=== PATIENT | male | born 1970 | race Caucasian/White ===

== ENCOUNTER 2019-12-17 13:48 | Inpatient (IN) | payer SELFPAY ==
[2019-12-17] VITALS (7 sets, daily range): BP systolic 107–149; BP diastolic 75–105; PULSE 89–107; RESP 16–25; TEMP 36.3–37.1; O2SAT 95–99; BMI 38.0
--- NOTE | 2019-12-17 14:21 | ED_ITS ---
HPI - Abdominal Pain General: Chief Complaint: Abdominal Pain Stated Complaint: ABD PAIN; N/V Time Seen by Provider: 12/17/19 13:54 History of Present Illness: HPI narrative: 49-year-old male presents with abdominal pain which began yesterday with nausea and vomiting he is having bilious vomit some multiple episodes of loose watery stools. He denies any recent oral antibiotics. He denies any hematic hematochezia melena hematemesis or coffee-ground emesis. He refers most of abdominal pain to the epigastric area a little bit to the left of center radiating across the entire epigastric area he denies any dysuria urgency or frequency no recent cough or shortness of breath. He has had multiple episodes of diarrhea stools but is unable to give me a number per day. He has had mitral and aortic valvuloplasty is done but in talking to him it sounds as if these were bioprosthetic he is not been prescribed any oral anticoagulants either immediately after the surgery or since. MD elicited complaint: abdominal pain Pertinent past history: none Onset (ago): day(s) (2) Pain Consistency: constant Location: Epigastric Severity: severe Quality: cramping and stabbing Radiation: LLQ Migration to: no migration Exacerbating factors: eating, bowel movement, vomiting and other (Sitting up) Relieving factors: rest Associated Symptoms: Reports anorexia, bloating, GI cramping, diarrhea, dyspepsia, nausea, poor appetite and vomiting; Denies coffee ground emesis, constipation, dysuria, fever(s), heartburn, hematochezia and melena Review of Systems Const: Denies: fever(s) ENMT: Denies: throat pain, ear or mastoid pain, nasal discharge or nasal congestion Card: Denies: chest pain, edema, dyspnea on exertion or orthopnea Resp: Denies: dyspnea, productive cough or non-productive cough GI: Reports: nausea, vomiting, diarrhea, bloating and GI cramping; Denies: coffee ground emesis, heartburn, constipation, hematochezia or melena : Denies: dysuria Skin/Breast: Denies: rash or pruritus PFSH ED PFSH: Medical History Bowel obstruction CAD (coronary artery disease) Diabetes Hepatitis C Hypertension Surgical History History of aortic valve replacement with bioprosthetic valve History of heart valve replacement History of mitral valve replacement with bioprosthetic valve Social History Substance/Drug Use: current Substance/Drug use frequency: few times a month Substance/Drug use type: Methamphetamine Housing: Homeless Physical Exam Const: COMMON NORMALS: no acute distress GENERAL APPEARANCE: cooperative and comfortable ORIENTATION/CONSCIOUSNESS: Yes awake, Yes oriented to person, Yes oriented to place and Yes oriented to time HENMT: COMMON NORMALS: normocephalic, atraumatic, hearing grossly normal bilaterally, external ears normal, EAC's normal, TM's normal bilaterally, Normal nasal mucous membranes and turbinates present, moist oral mucous membranes and oropharynx normal HEAD & SCALP: normocephalic and atraumatic NOSE: Normal nasal mucous membranes and turbinates present EXTERNAL EAR: Yes external ears normal EXTERNAL AUDITORY CANAL: EAC's normal TYMPANIC MEMBRANE: TM's normal bilaterally Eye: COMMON NORMALS: Equal, round and reactive pupils present, EOMs intact bilaterally, conjunctivae normal and no scleral icterus CONJUNCTIVA: Yes conjunctivae normal PUPIL: Yes Equal, round and reactive pupils present Neck/C-Spine: COMMON NORMALS: full ROM, no lymphadenopathy, supple and no JVD Lymph: LYMPHATIC: no lymphadenopathy noted and no lymphedema noted Resp: COMMON NORMALS: normal respiratory effort, No retractions, No use of accessory muscles and clear to auscultation bilaterally AUSCULTATION: clear to auscultation bilaterally Cardio: COMMON NORMALS: no JVD, regular rate, regular rhythm and No murmurs present (Cardio) RATE: regular rate RHYTHM: regular rhythm GI: COMMON NORMALS: Soft to palpation and No hepatosplenomegaly present AUSCULTATION: Yes Hypoactive bowel sounds present PALPATION: Yes Soft to palpation, Yes Tenderness to palpation present (GI) (Diffusely across the abdomen), No Guarding due to palpation present (GI) and Yes No hepatosplenomegaly present Extremity: COMMON NORMALS: normal to inspection, capillary refill normal, no clubbing, cyanosis or edema, no calf tenderness and no pedal edema Neuro: SENSORIUM/ORIENTATION: Yes oriented to person, Yes oriented to place and Yes oriented to time Skin: COMMON NORMALS: no rashes or lesions noted GENERAL SKIN EXAM: no rashes or lesions noted Course Vital Signs: Vital signs: Vital Signs Temperature 97.7 F 12/20/19 07:21 Pulse Rate 67 12/20/19 07:21 Respiratory Rate 18 12/20/19 07:21 Blood Pressure 106/70 12/20/19 07:21 Pulse Oximetry 96 12/20/19 07:21 MDM - Abdominal Pain MDM Narrative: Medical decision making narrative: Solitary loop of bowel with obstruction at both the proximal and distal portions.. Reviewed with Dr. Ortega. He will admit consult hospitalist as well. Discussed with the patient. Lab Data: Labs: Lab Results 12/17/19 12/17/19 12/17/19 Range/Units 14:56 14:56 14:56 WBC 11.3 H (4.0-10.0) 10^3/ uL RBC 5.26 (4.1-5.3) 10^6/u L Hgb 15.7 (11.7-16.6) g/dL Hct 46.6 (42.0-52.0) % MCV 88.6 (80-94) fL MCH 29.8 (28.0-34.0) pg MCHC 33.7 (30.0-36.0) g/dL RDW 12.5 (12.1-15.1) % Plt Count 204 (130-400) 10^3/c mm MPV 10.3 (7.4-10.4) fL Neut % (Auto) 82.7 % Lymph % (Auto) 11.5 % [place] % (Auto) 5.0 % Eos % (Auto) 0.1 % Baso % (Auto) 0.2 % Neut # (Auto) 9.34 H (1.8-7.7) 10^3/u L Lymph # (Auto) 1.3 (0.8-4.8) 10^3/u L [place] # (Auto) 0.6 (0.2-0.9) 10^3/u L Eos # (Auto) 0.0 (0.0-0.8) 10^3/u L Baso # (Auto) 0.0 (0.0-0.1) 10^3/u L Nucleated RBC % (a uto) 0 % Nucleated RBCs # 0.0 /100WBC Sodium 133 L (136-145) mmol/L Potassium 4.4 (3.5-5.1) mmol/L Chloride 100 (98-107) mmol/L Carbon Dioxide 20 L (22-29) mmol/L Anion Gap 17.4 (5-19) BUN 20 (6-20) mg/dL Creatinine 0.8 (0.7-1.2) mg/dL GFR Calculation 103.6 (90-130) mL/min Glucose 297 H (65-115) mg/dL Calculated Osmolal ity 284 L (285-295) mOsm/k g Lactic Acid 3.5 H (0.5-2.2) mmol/L Calcium 9.1 (8.5-10.5) mg/dL Total Bilirubin 0.4 (0.15-1.2) mg/dL AST 12 (0-40) U/L ALT 18 (0-41) U/L Alkaline Phosphata se 84 (40-130) IU/L Total Protein 7.5 (6.6-8.7) g/dL Albumin 4.5 (3.5-5.2) g/dL Globulin 3.0 (1.3-4.6) g/dL Lipase 23 (13-60) U/L Discharge Plan Discharge Patient Disposition: Admitted As Inpatient Admit Provider: Star Ortega Clinical Impression: Small bowel obstruction, H/O heart valve replacement with bioprosthetic valve, Hypertension, Diabetes Condition: Stable Interventions: ED Discharge Assessment Last Done: 12/17/19 17:56 ED Charges Last Done: 12/17/19 17:56 Discharge Date/Time: 12/17/19 18:02 Coding Level of Care Code ED Mobility Specialist for Chg Fwd Exam Comprehensive
--- NOTE | 2019-12-17 14:34 | CTR_ITS ---
PROCEDURE INFORMATION: Exam: CT Abdomen And Pelvis With Contrast Exam date and time: 12/17/2019 2:58 PM Age: 49 years old Clinical indication: Abdominal pain; Localized; Left lower quadrant (llq); Additional info: Abd pain TECHNIQUE: Imaging protocol: Computed tomography of the abdomen and pelvis with intravenous contrast. Radiation optimization: All CT scans at this facility use at least one of these dose optimization techniques: automated exposure control; mA and/or kV adjustment per patient size (includes targeted exams where dose is matched to clinical indication); or iterative reconstruction. Contrast material: OMNI 300; Contrast volume: 95 ml; Contrast route: INTRAVENOUS (IV); COMPARISON: No relevant prior studies available. RADIATION DOSE METRICS: Total DLP (mGy-cm): 2000.64 FINDINGS: Liver: Unremarkable.No mass. Gallbladder and bile ducts: Normal. No calcified stones. No ductal dilation. Pancreas: Normal. No ductal dilation. Spleen: Normal. No splenomegaly. Adrenals: Normal. No mass. Kidneys and ureters: There is no evidence of hydronephrosis. There is no evidence of renal calcifications. Stomach and bowel: There are dilated loops of small bowel and findings of a partial small bowel obstruction with a greatest transverse measurement the dilated loops of small bowel measuring 4.2 cm. The stomach, jejunum and terminal ileum are not dilated. The findings are compatible with a closed loop obstruction. The loops of colon have an appropriate appearance. Appendix: A normal appendix is identified. Intraperitoneal space: There is a swirled appearance of the mesenteric fat and vessels in the right abdomen image 62. There is an abrupt caliber change. Vasculature: Unremarkable.No abdominal aortic aneurysm. Lymph nodes: Unremarkable.No enlarged lymph nodes. Bladder: There is nonspecific bladder wall thickening. This may be related to incomplete distention. Reproductive: Unremarkable as visualized. Bones/joints: Unremarkable. No acute fracture. Soft tissues: There are moderate to large sized bilateral fat filled inguinal hernias. CT/CT abdomen pelvis w con* [id number] IMPRESSION: 1. Partial small bowel obstruction. There are findings of a closed loop obstruction with collapsed proximal small bowel and distal small bowel proximal and distal to the obstruction. No pneumatosis or free air. 2. There is a vacuum disc at L5-S1. There are mild degenerative changes in the spine. Radiation Dose CTDIVOL = (mGy): DLP = 2000.64 (mGy-cm)
[2019-12-17] MEDS: sodium chloride 0.9% 1,000 ML 999 ML IV (14:43)
[2019-12-17] MEDS: ondansetron 2 mg/ML SDV 2 mL 4 MG IVP (14:43)
--- NOTE | 2019-12-17 14:44 | PC.NURSE ---
At patients bedside at this time to administer medications. This RN educated patient that a urine sample is needed. Patient reports that he will try to provide one. This RN stepped out of the room to provide the patient for privacy. Prior to leaving the room this RN educated the patient to us call light when urine sample is provided. Will continue to monitor patient.
[2019-12-17 15:05] LABS: Basophils % 0.2 %; Eosinophils % 0.1 %; Hematocrit 46.6 % (42.0-52.0); Hemoglobin 15.7 g/dL (11.7-16.6); Lymphocytes # 1.3 10^3/uL (0.8-4.8); Lymphocytes % 11.5 %; Mean Corpuscular HGB Conc 33.7 g/dL (30.0-36.0); Mean Corpuscular Hemoglobin 29.8 pg (28.0-34.0); Mean Corpuscular Volume 88.6 fL (80-94); Mean Platelet Volume 10.3 fL (7.4-10.4); Monocytes # 0.6 10^3/uL (0.2-0.9); Neutrophils # 9.34 10^3/uL (1.8-7.7); Neutrophils % 82.7 %; Nucleated Red Blood Cells % 0 %; Platelet Count 204 10^3/cmm (130-400); Red Blood Count 5.26 10^6/uL (4.1-5.3); Red Cell Distribution Width 12.5 % (12.1-15.1); White Blood Count 11.3 10^3/uL (4.0-10.0)
[2019-12-17] MEDS: iohexol 300 mg/mL 100 mL Btl IV (15:18)
[2019-12-17 15:34] LABS: Alanine Aminotransferase 18 U/L (0-41); Albumin Level 4.5 g/dL (3.5-5.2); Alkaline Phosphatase 84 IU/L (40-130); Anion Gap 17.4 (5-19); Aspartate Amino Transferase 12 U/L (0-40); Blood Urea Nitrogen 20 mg/dL (6-20); Calcium 9.1 mg/dL (8.5-10.5); Carbon Dioxide 20 mmol/L (22-29); Chloride 100 mmol/L (98-107); Creatinine Clr Calc Pharmacy 139.4987; Glomerular Filtration Rate 103.6 mL/min (90-130); Glucose 297 mg/dL (65-115); Lipase 23 U/L (13-60); Osmolality Calculated 284 mOsm/kg (285-295); Potassium 4.4 mmol/L (3.5-5.1); Sodium 133 mmol/L (136-145); Total Bilirubin 0.4 mg/dL (0.15-1.2); Total Protein 7.5 g/dL (6.6-8.7)
[2019-12-17 15:36] LABS: Lactic Sepsis W/Reflex 3.5 mmol/L (0.5-2.2)
[2019-12-17] MEDS: LORazepam 2 mg/mL INJ 1 mL IVP (16:16)
[2019-12-17] MEDS: pantoprazole 40 mg SDV IVP (16:17)
[2019-12-17] MEDS: enoxaparin 40 mg/0.4 mL Syringe SUBCUT (16:36)
[2019-12-17 16:50] LABS: Reflex Lactate Order REFLEX LACTIC ORDERD
[2019-12-17 17:13] LABS: Urine Appearance Clear (CLEAR); Urine Color Straw (Yellow); pH Urine 5 (5-7)
[2019-12-17 17:14] LABS: Add Urine Culture? No; Add Urine Microscopic? YES; Bacteria Urine TRACE; Bilirubin Urine Neg (NEGATIVE); Blood Urine 3+ (Negative); Glucose Urine UA 2+ (Normal); Ketones Urine Negative (Negative); Leukocyte Esterase Urine Negative (Negative); Nitrate Urine Negative (Negative); Protein Urine Neg (Negative); Urobilinogen Urine Norm (Negative)
--- NOTE | 2019-12-17 17:23 | PC.NURSE ---
Second attempt to call report. First time calling was put on hold and engineering secretary reports she was unable to find the nurse. Second time calling this RN called the nurses volt phone and no answer.
--- NOTE | 2019-12-17 20:18 | XRR_ITS ---
PROCEDURE INFORMATION: Exam: XR Chest, 1 View Exam date and time: 12/17/2019 9:16 PM Age: 49 years old Clinical indication: NG tube placement TECHNIQUE: Imaging protocol: XR of the chest Views: 1 view. COMPARISON: CR Chest 1 [place] [id number] 10/28/2018 1:47 PM FINDINGS: Tubes, catheters and devices: There is an enteric tube present with the tip in the stomach, and the proximal side hole at/near the gastroesophageal junction. Lungs: Poor inspiration. Decreased lung volumes. Pleural space: No pleural effusion or pneumothorax. Heart/Mediastinum: The cardiac silhouette is enlarged. The mediastinal contours are normal. Bones/joints: Prior median sternotomy. XR/XR chest 1V portable [id number] IMPRESSION: Enteric tube tip in the stomach.
--- NOTE | 2019-12-17 20:24 | P.HP_ITS ---
Providers/Chief Complaint Admitting Physician: Star Ortega MD Chief Complaint: ABD PAIN; N/V History of Present Illness Shree Hickman is a 49 year old male who is homeless and presents to the ER with a 24-hour history of generalized abdominal pain. Patient states that the pain is generalized does not radiate, not worse with food intake or physical activity and is constant. It initially started as nausea with vomiting followed by multiple loose bowel movements and abdominal pain yesterday. Today continue present abdominal pain and he also had a loose bowel movement since he came to the floor half an hour ago. No urinary symptoms. Patient states that he is still episode about a year ago when he was admitted to [facility]. No fevers or chills. No hematemesis or melena. No prior abdominal surgeries. Review of Systems General: Reports: 10 or more systems reviewed and unremarkable except in HPI and below Medications/Allergies Home Medications Medication Instructions Recorded Confirmed Last Taken Type No Known Home Medications 12/17/19 12/17/19 Unknown History Allergies Allergy/AdvReac Type Severity Reaction Status Date / Time No Known Allergies Allergy Verified 12/17/19 13:54 PFSH Acute PFSH: Medical History Bowel obstruction CAD (coronary artery disease) Hepatitis C Hypertension Surgical History History of aortic valve replacement with bioprosthetic valve History of heart valve replacement History of mitral valve replacement with bioprosthetic valve Social History (Updated 12/17/19 @ 20:26 by Star Ortega MD) Substance/Drug Use: current Substance/Drug use frequency: few times a month Substance/Drug use type: Methamphetamine Housing: Homeless Vitals/I&O/Wt Last Vital Signs Temp 97.7 F 12/17/19 20:00 Pulse 89 12/17/19 20:00 Resp 22 H 12/17/19 20:00 BP 114/77 12/17/19 20:00 Pulse Ox 95 12/17/19 20:00 12/17/19 12/17/19 12/17/19 06:59 14:59 22:59 Intake Total 1000 / 1000 Balance 1000 / 1000 Weight last 48 hrs Weight 250 lb Physical Exam Narrative: EXAM NARRATIVE: HEENT: Normocephalic Eye: Sclera /conjunctiva normal Respiratory and chest: Bilateral clear breath sounds on auscultation Cardiovascular: Normal S1 and S2 heart sounds Abdomen: Soft to palpation, minimally tender, no guarding or rigidity. Mildly distended. Neurological: Oriented to place person and time Skin: Intact, no lesions appreciated on gross exam Urinary Catheter Management^: Rowe: Cath Placed During This Visit: yes Reason for Continuing Indwelling Catheter: Other Urinary Catheter Date of Insertion: 12/17/19 Urinary Catheter Time of Insertion: 16:10 Data : 12/17/19 14:56 12/17/19 14:56 A&P Assessment and plan (1) Abdominal pain: 49-year-old homeless gentleman who presents with abdominal pain, nausea vomiting and diarrhea. His WBC is 11.3 and his lactate is 3.5. Rest of his lab did not any significant pathology. Urine was positive for blood and WBC. He had an NG tube and Rowe catheter placed in the ER. CT abdomen pelvis showed possible closed-loop obstruction involving the jejunum. Admit as inpatient Ambulate ad larry. NG tube to low low intermittent suction Rowe to gravity KUB to confirm NG tube position Lactate reflex now Consult hospitalist service for medical management. Abdominal series in the morning CBC BMP in the morning Lovenox for DVT prophylaxis Incentive spirometry Protonix for GI prophylaxis Obtain records from [facility] Status: Acute Attestations Medical Necessity Statement*: Suspected small bowel obstruction/ileus requiring continued inpatient stay Coding Level of Care Code Acute Hydraulic Plumber Helper for Chg Fwd Diagnoses Abdominal pain R10.9
--- NOTE | 2019-12-17 20:25 | PM.CONSULT ---
Providers/Reason For Consult Consulting Physican/Specialty*: Maria Elena Johnson MD/Internal Medicine Reason for Consult*: medical comanagement Attending Physician: Star Ortega MD History of Present Illness History of Present Illness History obtained by chart review and discussion with ERP. 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 He only able to tell that that symptoms started abruptly today. At time of my evaluation at ~5:45 pm, he was noted to be naked in the room, pacing about with his NGT still connected to suction, attempting to pull on his stephen as he wanted to get to the bathroom urgently to have a bowel movement. He had soiled himself with some incontinent stool and there was some on his bed. He was unwilling to state much else and was helped to the bathroom eventually. Denied any bleeding or hematemesis to me. HB at 15.7, mild leukocytosis at 11. Afebrile. Does not report any fever at home. Further history limited. Review of Systems General: Reports: 10 or more systems reviewed and unremarkable except in HPI and below Const: Denies: fever(s), chills or body aches Eyes: Denies: change in vision, blurry vision or photophobia ENMT: Reports: hoarseness; Denies: throat pain, enlarged tonsils, odynophagia or nasal congestion Card: Denies: chest pain, palpitations, irregular heart rhythm, edema, swelling of feet/ankles, lightheadedness, pre-syncope, dyspnea on exertion or orthopnea Resp: Denies: dyspnea, productive cough, non-productive cough, wheezing, stridor, pain on inspiration, change in phlegm color, hemoptysis or chest congestion GI: Denies: abdominal pain, nausea, vomiting, hematemesis, coffee ground emesis, dysphagia, heartburn, diarrhea, constipation, GI cramping, change in stool character, hematochezia or melena : Denies: flank pain, dysuria, urinary frequency, urinary urgency, urinary hesitancy or hematuria Musc: Denies: neck pain, back pain, extremity pain, joint swelling, joint warmth or deformity Neuro: Denies: headache(s), numbness in extremities, weakness in extremities, sensory changes, difficulty walking, frequent falls, dizziness, vertigo, behavioral changes, Slurred speech present or seizure-like activity Psych: Denies: anxiety, depression, suicidal ideation or homicidal ideation Endo: Denies: polyuria, polydipsia, tired all the time, cold intolerance or hot flashes [place]/Lymph: Denies: easy bruising or easy bleeding Meds/Allergies Home Medications and Allergies Home Medications Medication Instructions Recorded Confirmed Last Taken Type No Known Home Medications 12/17/19 12/17/19 Unknown History Allergies Allergy/AdvReac Type Severity Reaction Status Date / Time No Known Allergies Allergy Verified 12/17/19 13:54 PFSH Acute PFSH: Medical History Bowel obstruction CAD (coronary artery disease) Diabetes Hepatitis C Hypertension Surgical History History of aortic valve replacement with bioprosthetic valve History of heart valve replacement History of mitral valve replacement with bioprosthetic valve Social History Substance/Drug Use: current Substance/Drug use frequency: few times a month Substance/Drug use type: Methamphetamine Housing: Homeless Vitals/I&O/Wt Last Vital Signs Temp 97.7 F 12/17/19 20:00 Pulse 89 12/17/19 20:00 Resp 22 H 12/17/19 20:00 BP 114/77 12/17/19 20:00 Pulse Ox 95 12/17/19 20:00 12/17/19 12/17/19 12/17/19 06:59 14:59 22:59 Intake Total 1000 / 1000 Balance 1000 / 1000 Weight last 48 hrs Weight 113.398 kg Physical Exam Narrative: EXAM NARRATIVE: GEN: Awake, alert and oriented, in some distress due to bowel urgency, pacing in the room, attempting to get to the bathroom in hallway CVS: S1S2 N RS: CTA B/L Abd: Soft, mildly distended, bowel sounds could not be auscultated as he refused to sit MANAGER CLINICAL APPLICATIONS: no focal neuro deficits appearent, pacing the room, gait stable EXT: no edema Urinary Catheter Management^: Stephen: Cath Placed During This Visit: yes Reason for Continuing Indwelling Catheter: Other Urinary Catheter Date of Insertion: 12/17/19 Urinary Catheter Time of Insertion: 16:10 A&P Assessment and plan (1) Small bowel obstruction: Status: Acute (2) Diabetes: Status: Acute Qualifiers: Diabetes mellitus type: type 2 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 Small bowel obstrcution NGT placed to suction in the ER Planned for conservative manga[employer] for now NPO 2. DM: Check Hba1c, per review of past records, appears to have been on insulin in the past. Low dose sliding scale for now, further to be assesed based on fingersticks and Hba1c levels 3. HTN: no medications listed on med rec. Since currently NPO, will plan to use hydralazine as needed 4. Currently sinus tachycardia on monitor, some may be associated with distress from pain and bowel urgency. Metroprolol prn if needed for tachycardia >120bpm, as allowed by BP 5. H/o hep C, unclear rx status. Currently LFT within range. HIV screen with am labs 6. h/o bioprosthetic AV and MV repair, unable to tell me if currently on ASA, as would be expected, will attempt to obtain priro records & contact his pharmacy. 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
[2019-12-17] MEDS: D5-NS 0.45% + KCL 20 mEq 20 MEQ/1,000 ML BAG 100 MEQ IV (20:47)
[2019-12-17] MEDS: sodium chlor 0.9% + KCl 20 mEq 20 MEQ/1,000 ML BAG 100 MEQ IV (20:49)
[2019-12-17 20:59] LABS: Glucose Point of Care 205 mg/dL (70-110)
[2019-12-17 21:22] LABS: Lactic Sepsis W/Reflex 2.3 mmol/L (0.5-2.2)
[2019-12-17 22:49] LABS: Reflex Lactate Order REFLEX LACTIC ORDERD
[2019-12-17 23:37] LABS: Lactic Acid level (Lactate) 2.2 mmol/L (0.5-2.2)
[2019-12-18 01:30] VITALS: PULSE 88; RESP 17; O2SAT 94
[2019-12-18 04:48] VITALS: BP 123/83; PULSE 78; RESP 24; O2SAT 95
[2019-12-18] MEDS: OLANZapine 10 mg VIAL 2.5 MG IM ×2 (05:14→18:48)
[2019-12-18 06:04] LABS: Basophils % 0.2 %; Eosinophils # 0.1 10^3/uL (0.0-0.8); Eosinophils % 0.7 %; Hematocrit 43.8 % (42.0-52.0); Hemoglobin 14.5 g/dL (11.7-16.6); Lymphocytes # 1.4 10^3/uL (0.8-4.8); Lymphocytes % 16.8 %; Mean Corpuscular HGB Conc 33.1 g/dL (30.0-36.0); Mean Corpuscular Hemoglobin 29.9 pg (28.0-34.0); Mean Corpuscular Volume 90.3 fL (80-94); Mean Platelet Volume 10.3 fL (7.4-10.4); Monocytes # 0.5 10^3/uL (0.2-0.9); Monocytes % 5.9 %; Neutrophils # 6.23 10^3/uL (1.8-7.7); Nucleated Red Blood Cells % 0 %; Platelet Count 177 10^3/cmm (130-400); Red Blood Count 4.85 10^6/uL (4.1-5.3); Red Cell Distribution Width 12.7 % (12.1-15.1); White Blood Count 8.2 10^3/uL (4.0-10.0)
--- NOTE | 2019-12-18 06:18 | XRR_ITS ---
PROCEDURE INFORMATION: Exam: XR Abdomen, 2 Views Exam date and time: 12/18/2019 10:43 AM Age: 49 years old Clinical indication: Abdominal pain; Generalized; SBO TECHNIQUE: Imaging protocol: XR of the abdomen. Views: 2 Views. COMPARISON: CT abdomen pelvis w con* [id number] 12/17/2019 3:03 PM FINDINGS: Tubes, catheters and devices: An enteric tube extends to the stomach which is decompressed. Gastrointestinal tract: There continues to be dilated gas-filled loops of small bowel in the upper abdomen. However, there is some gas in the colon and rectum. Intraperitoneal space: No pneumoperitoneum. Bones/joints: No acute osseous abnormality. XR/XR abdomen min 2V [id number] IMPRESSION: Continuing evidence of small bowel obstruction.
[2019-12-18 06:21] LABS: Alanine Aminotransferase 15 U/L (0-41); Albumin Level 4.1 g/dL (3.5-5.2); Alkaline Phosphatase 73 IU/L (40-130); Anion Gap 14.1 (5-19); Aspartate Amino Transferase 11 U/L (0-40); Blood Urea Nitrogen 16 mg/dL (6-20); Calcium 8.3 mg/dL (8.5-10.5); Carbon Dioxide 24 mmol/L (22-29); Chloride 102 mmol/L (98-107); Globulin 2.6 g/dL (1.3-4.6); Glomerular Filtration Rate 120.9 mL/min (90-130); Glucose 262 mg/dL (65-115); Osmolality Calculated 287 mOsm/kg (285-295); Potassium 4.1 mmol/L (3.5-5.1); Sodium 136 mmol/L (136-145); Total Bilirubin 0.5 mg/dL (0.15-1.2); Total Protein 6.7 g/dL (6.6-8.7)
[2019-12-18 06:32] LABS: Chol HDL Ratio 7.42 mg/dL (1.0-5.00); Cholesterol 178 mg/dL (0-200); HDL Cholesterol 24 mg/dL (60-100); Triglycerides 614 mg/dL (0-150)
[2019-12-18] MEDS: sodium chlor 0.9% + KCl 20 mEq 20 MEQ/1,000 ML BAG 100 MEQ IV ×2 (06:37→18:41)
[2019-12-18 06:54] LABS: Glucose Point of Care 257 mg/dL (70-110)
[2019-12-18 06:55] LABS: Estmated Average Glucose 217; Hemoglobin A1C 9.2 % (4.0-6.0)
[2019-12-18 06:56] LABS: HIV 1 & 2 Antibody Non-Reactive (Non-Reactiv); HIV 1 & 2 Antigen Non-Reactive (Non-Reactiv)
[2019-12-18 07:11] LABS: LDL Cholesterol Direct 84 mg/dL (0-100)
[2019-12-18 07:52] VITALS: BP 128/81; PULSE 75; RESP 18; O2SAT 97
--- NOTE | 2019-12-18 08:11 | PM.PN ---
Subjective Subjective: Interval history: No issues overnight, denies any significant abdominal pain, had a loose bowel movement this morning. NG output has been minimal. Abdominal series is pending Vitals/I&O/Wt Last Vital Signs Temp 98.7 F 12/17/19 23:48 Pulse 75 12/18/19 07:52 Resp 18 12/18/19 07:52 BP 128/81 12/18/19 07:52 Pulse Ox 97 12/18/19 07:52 12/17/19 12/18/19 12/18/19 22:59 06:59 14:59 Intake Total 1100 / 2080 980 / 2080 Output Total 810 / 810 Balance 1100 / 1270 170 / 1270 Weight last 48 hrs Weight 250 lb Physical Exam Narrative: EXAM NARRATIVE: Abdomen: Soft, nondistended, nontender Urinary Catheter Management^: Rowe: Cath Placed During This Visit: yes Reason for Continuing Indwelling Catheter: Other Urinary Catheter Date of Insertion: 12/17/19 Urinary Catheter Time of Insertion: 16:10 Data : 12/18/19 05:42 12/18/19 05:42 A&P Assessment and plan (1) Abdominal pain: 49-year-old gentleman with abdominal pain nausea vomiting and diarrhea with CT scan showing possible bowel obstruction. No prior abdominal surgeries. Patient has multiple medical comorbidities but he is homeless and therefore has not been very compliant. Lactate down to 2.5 from 3.4 last night, repeat lactate today Clamp NG tube Start clear liquid diet Daily labs Protonix for GI prophylaxis Lovenox for DVT prophylaxis Patient will need 1 more night of inpatient stay to ensure resolution of ileus/obstruction Status: Acute Qualifiers: Abdominal location: generalized Qualified Code(s): R10.84 - Generalized abdominal pain Attestations Medical Necessity Statement*: Small bowel obstruction/ileus requiring continued inpatient stay to ensure resolution Coding Level of Care Code Acute Enlisted Advisor for [facility] Fwd Diagnoses Abdominal pain R10.84 Abdominal location: generalized
[2019-12-18] MEDS: pantoprazole 40 mg SDV IVP (08:49)
[2019-12-18 10:31] LABS: Lactate (Lactic Acid level) 2.4 mmol/L (0.5-2.2)
[2019-12-18 12:00] VITALS: BP 111/81; PULSE 70; RESP 18; TEMP 36.5; O2SAT 96
[2019-12-18 12:14] LABS: Glucose Point of Care 263 mg/dL (70-110)
--- NOTE | 2019-12-18 13:13 | PM.PN ---
Subjective Subjective: Interval history: no acute overnight events, BP stable, Hba1c >9, lipid panel with hypertriglycerdiemia Medications: Reviewed: Yes Vitals/I&O/Wt Last Vital Signs Temp 97.7 F 12/18/19 12:00 Pulse 70 12/18/19 12:00 Resp 18 12/18/19 12:00 BP 111/81 12/18/19 12:00 Pulse Ox 96 12/18/19 12:00 12/17/19 12/18/19 12/18/19 22:59 06:59 14:59 Intake Total 1100 / 1100 980 / 2080 620 / 620 Output Total 810 / 810 Balance 1100 / 1100 170 / 1270 620 / 620 Weight last 48 hrs Weight 113.398 kg Physical Exam Narrative: EXAM NARRATIVE: GEN: Awake, alert and oriented CVS: S1S2 N RS: CTA B/L Abd: Soft, mildly distended, bowel sounds could not be auscultated as he refused to sit HIGH PRESSURE CLEANER: no focal neuro deficits appearent, pacing the room, gait stable EXT: no edema Urinary Catheter Management^: Rowe: Cath Placed During This Visit: yes Reason for Continuing Indwelling Catheter: Other Urinary Catheter Date of Insertion: 12/17/19 Urinary Catheter Time of Insertion: 16:10 Data : 12/18/19 05:42 12/18/19 05:42 Micro: Microbiology 12/18/19 00:00 C.difficile Toxin B Gene (PCR) - Final Stool Routine Collection A&P Assessment and plan (1) Small bowel obstruction: Status: Acute (2) Diabetes: Status: Acute Qualifiers: Diabetes mellitus type: type 2 Diabetes mellitus detention insulin use: with detention use Diabetes mellitus complication status: with hyperglycemia Qualified Code(s): E11.65 - Type 2 diabetes mellitus with hyperglycemia; Z79.4 - residential (current) use of insulin (3) Abdominal pain: Status: Acute Qualifiers: Abdominal location: generalized Qualified Code(s): R10.84 - Generalized abdominal pain (4) Hypertension: Status: Acute Qualifiers: Hypertension type: essential hypertension Qualified Code(s): I10 - Essential (primary) hypertension (5) H/O heart valve replacement with bioprosthetic valve: Status: Acute Additional A&P Information Admitted to gen/surg 1. Small bowel obstrcution NGT placed to suction in the ER Planned for conservative mangaemnet for now NPO plan per surgery 2. DM: Hba1c >9, poorly controlled DM, unwilling to take insulin, once bale to tolerate po and nearing discharge will discuss combination OHAs with him. 3. HTN: no medications listed on med rec. Since currently NPO, will plan to use hydralazine as needed. Thus far LORETTA is maintained without any medications 5. H/o hep C, unclear rx status. Currently LFT within range. HIV screen negative. 6. h/o bioprosthetic AV and MV repair, start ASA upon discharge Attestations Medical Necessity Statement*: per admitting team Coding Level of Care Code Acute Steam Tender for [facility] Fwd Diagnoses Small bowel obstruction K56.609 Diabetes E11.65; Z79.4 Diabetes mellitus type: type 2 Diabetes mellitus tank terminal gauger insulin use: with detention use Diabetes mellitus complication status: with hyperglycemia Abdominal pain R10.84 Abdominal location: generalized Hypertension I10 Hypertension type: essential hypertension H/O heart valve replacement with bioprosthetic valve Z95.3
[2019-12-18 15:43] VITALS: BP 120/82; PULSE 79; RESP 18; TEMP 36.4; O2SAT 95
[2019-12-18] MEDS: enoxaparin 40 mg/0.4 mL Syringe SUBCUT (18:41)
[2019-12-18 18:48] LABS: Glucose Point of Care 156 mg/dL (70-110)
--- NOTE | 2019-12-18 19:30 | PC.NURSE ---
This nurse responded to call light, pt had pulled out his NG tube and slung it at this nurse stating, You aren't putting this fucking thing back in my nose. It should have been taped better. Remaining fluid from inside the tube splashed this nurse in the neck and face. Dr. Ortega notified that pt removed NG tube and refused for another one, NG tube to be left out.
[2019-12-18 20:00] VITALS: BP 108/76; PULSE 89; RESP 20; TEMP 36.6; O2SAT 97
[2019-12-18 22:09] LABS: Glucose Point of Care 130 mg/dL (70-110)
[2019-12-19] VITALS: BP 115/79; PULSE 71; RESP 16; TEMP 36; O2SAT 98
[2019-12-19] MEDS: sodium chlor 0.9% + KCl 20 mEq 20 MEQ/1,000 ML BAG 100 MEQ IV ×3 (01:30→23:41)
[2019-12-19 04:00] VITALS: BP 127/86; PULSE 68; RESP 20; TEMP 36.3; O2SAT 98
--- NOTE | 2019-12-19 06:24 | XR_ITS ---
WS: [id number] ABDOMEN 2 VIEW(S) HISTORY: sbo COMPARISON: 12/17/2019 Continued increased air and fluid in the small bowel. The extent of small bowel dilatation is 4.9 cm. There is less air in the small bowel but there is still significant fluid distention. No complete ob struction as there is is air within the colon. No free air. No suspicious calcifications or masses. No bone abnormality. XR/XR abdomen min 2V 61318 IMPRESSION: 1. High-grade partial small bowel obstruction. Less air but increasing fluid i n the small bowel. 2. No free air.
[2019-12-19 06:58] LABS: Glucose Point of Care 191 mg/dL (70-110)
--- NOTE | 2019-12-19 07:41 | PC.NURSE ---
patient refuses Novolog. procedure writer notified Dr Ortega
[2019-12-19 07:42] VITALS: BP 123/82; PULSE 76; RESP 18; TEMP 36.6; O2SAT 95
[2019-12-19] MEDS: OLANZapine 10 mg VIAL 2.5 MG IM ×2 (08:08→17:59)
[2019-12-19] MEDS: pantoprazole 40 mg SDV IVP (08:08)
[2019-12-19 10:56] LABS: Eosinophils % 0.7 %; Hemoglobin 13.5 g/dL (11.7-16.6); Lymphocytes # 1.3 10^3/uL (0.8-4.8); Lymphocytes % 30.3 %; Mean Corpuscular HGB Conc 32.9 g/dL (30.0-36.0); Mean Corpuscular Hemoglobin 29.9 pg (28.0-34.0); Mean Corpuscular Volume 90.7 fL (80-94); Mean Platelet Volume 10.1 fL (7.4-10.4); Monocytes # 0.3 10^3/uL (0.2-0.9); Monocytes % 7.6 %; Neutrophils # 2.56 10^3/uL (1.8-7.7); Neutrophils % 61.2 %; Nucleated Red Blood Cells % 0 %; Platelet Count 145 10^3/cmm (130-400); Red Blood Count 4.52 10^6/uL (4.1-5.3); Red Cell Distribution Width 12.5 % (12.1-15.1); White Blood Count 4.2 10^3/uL (4.0-10.0)
[2019-12-19 11:08] LABS: Anion Gap 13.1 (5-19); Blood Urea Nitrogen 9 mg/dL (6-20); Carbon Dioxide 24 mmol/L (22-29); Chloride 104 mmol/L (98-107); Creatinine Clr Calc Pharmacy 139.4987; Glomerular Filtration Rate 103.6 mL/min (90-130); Glucose 255 mg/dL (65-115); Osmolality Calculated 289 mOsm/kg (285-295); Potassium 4.1 mmol/L (3.5-5.1); Sodium 137 mmol/L (136-145)
--- NOTE | 2019-12-19 11:24 | PC.NURSE ---
blood glucose MACHINE TOOL TECHNICIAN INSTRUCTOR told this nurse that patient refused blood glucose check. This nurse will try again.
--- NOTE | 2019-12-19 11:55 | CT_ITS ---
WS: [id number] CT ABDOMEN AND PELVIS WITH CONTRAST HISTORY: sbo TECHNIQUE: Imaging performed of the abdomen and pelvis with IV contrast. Single phase imaging of the abdomen. Coronal and sagittal reformats are submitted. All CT scans at [facility] use at least one of these dose optimization techniques: automated exposure control; mA and/or kV adjustment per patient size (includes targeted exams where dose is matched to clinical indication); or iterativ e reconstruction. IV CONTRAST: Omnipaque 300; 95 mL IV. Oral contrast: Yes. DLP: 1788.79 mGy.cm COMPARISON: 12/17/2019 Lower thorax: Lung bases are clear. Prior aortic valve replacement. Heart is normal size. Small hiata l hernia. Liver/biliary system: Normal size with no intrahepatic dilatation. Gallbladder: Normal. No gallstones or wall thickening. No pericholecystic fluid. Pancreas: Normal. Spleen: Normal. Adrenal glands: Normal. Right kidney: Mild perinephric stranding with no obstruction. Left kidney: Mild perinephric stranding with no obstruction. Aorta: Normal. Lymphadenopathy: None. Free fluid: There is a small amount of free fluid in the pelvis and along the RIGHT paracolic gutter. GI tract: Persistent but improved small bowel dilatation. The fluid-filled loops of central small bow el loops have improved. Loops measure up to 3.5 cm in diameter. There are several loops of small samir l centrally which are collapsed. The distal small bowel loops are collapsed also. The appendix is nor mal. There is still fecal material and air in the colon which is not collapsed. There is a soft tissu e masslike density in the stomach measuring 4.4 cm. Abdominal wall: Unremarkable abdominal wall. No hernia. Pelvis: Rowe catheter in a nondistended bladder. Bones: Retrolisthesis of L5 by [address]/CT abdomen pelvis w con* [id number] IMPRESSION: 1. Moderate improvement in the small bowel obstruction. Small bowel loops cont inue to contain fluid with a maximum diameter of 3.5 cm. 2. Normal appendix. 3. No free air. 4. Small amount of free fluid in the pelvis and RIGHT paracolic gutter. 5. Soft tissue mass versus food bolus in the stomach. Endoscopy may be necessa ry for evaluation.
--- NOTE | 2019-12-19 12:07 | PC.NURSE ---
Patient refused vital signs to be taken at this time. We will try again later.
--- NOTE | 2019-12-19 12:26 | PC.NURSE ---
Patient was resting with eyes closed and this nurse attempted to check patients blood glucose and he refused.
[2019-12-19] MEDS: barium sulfate 450 mL Oral Susp PO (12:53)
--- NOTE | 2019-12-19 14:30 | PC.NURSE ---
Behavior Patient stated to this nurse and VICE PRESIDENT GLOBAL ADVERTISING SALES When I get out of here I'm going to kill all of those mother fuckers because I'm not going to go back to correction. Patient was easily redirected and VICE PRESIDENT GLOBAL ADVERTISING SALES took patient to CT.
--- NOTE | 2019-12-19 14:40 | PC.NURSE ---
CT Patient was taken by wheelchair to CT
[2019-12-19] MEDS: iohexol 300 mg/mL 100 mL Btl IV (14:43)
--- NOTE | 2019-12-19 14:50 | PC.NURSE ---
TRUCK RENTAL MANAGER came to keno writer and stated that he is having hallucinations and hearing voices and they are telling him to hurt one of us. Anesthesiologist And Critical Care asked patient and he confirmed voices and hallucinations. notified Dr Ortega.
--- NOTE | 2019-12-19 15:27 | PC.NURSE ---
rcvd message from Dr Ortega that he will consult psych doctor.
--- NOTE | 2019-12-19 15:35 | PC.NURSE ---
patient refused lovenox shot. senior copywriter notified Dr Ortega
[2019-12-19 16:00] VITALS: BP 124/88; PULSE 74; RESP 22; TEMP 36.3
[2019-12-19 16:58] LABS: Glucose Point of Care 170 mg/dL (70-110)
--- NOTE | 2019-12-19 18:03 | PM.PN ---
Subjective Subjective: Interval history: Patient states that he is passing flatus, but has minimal abdominal pain, no nausea or vomiting, pulled his NG tube yesterday and refused to have it put in. Patient also had hallucinations today. Vitals/I&O/Wt Last Vital Signs Temp 97.3 F L 12/19/19 16:00 Pulse 74 12/19/19 16:00 Resp 22 H 12/19/19 16:00 BP 124/88 12/19/19 16:00 Pulse Ox 95 12/19/19 07:42 12/19/19 12/19/19 12/19/19 06:59 14:59 22:59 Intake Total 681.667 / 4341.667 1240 / 1240 Output Total 1600 / 2250 1850 / 3100 1250 / 3100 Balance -918.333 / 2091.667 -610 / -1860 -1250 / -1860 Physical Exam Narrative: EXAM NARRATIVE: Abdomen: Soft, nontender, minimally distended Urinary Catheter Management^: Rowe: Cath Placed During This Visit: yes Reason for Continuing Indwelling Catheter: Other Urinary Catheter Date of Insertion: 12/17/19 Urinary Catheter Time of Insertion: 16:10 Data : 12/19/19 10:43 12/19/19 10:43 Micro: Microbiology 12/18/19 00:00 Enteric Pathogens (PCR) - Final Stool Routine Collection Parasite Antigen Panel - Final C.difficile Toxin B Gene (PCR) - Final A&P Assessment and plan (1) Small bowel obstruction: CT abdomen pelvis revealed moderate improvement in small bowel obstruction. Continue full liquid diet Protonix for GI prophylaxis Lovenox for DVT prophylaxis ambulate ad larry. Status: Acute Attestations Medical Necessity Statement*: Small bowel obstruction, Coding Level of Care Code Acute Interventional Technologist for [facility] Fwadam Diagnoses Small bowel obstruction K56.609
[2019-12-19 20:00] VITALS: BP 133/89; PULSE 71; RESP 20; TEMP 36.2; O2SAT 96
--- NOTE | 2019-12-19 22:03 | PM.PN ---
Subjective Subjective: Interval history: seen and examined earlier this afternoon. NO acute events. CT abdomen with improving SBO. Medications: Reviewed: Yes Vitals/I&O/Wt Last Vital Signs Temp 97.2 F L 12/19/19 20:00 Pulse 71 12/19/19 20:00 Resp 20 H 12/19/19 20:00 BP 133/89 12/19/19 20:00 Pulse Ox 96 12/19/19 20:00 12/19/19 12/19/19 12/19/19 06:59 14:59 22:59 Intake Total 681.667 / 4341.667 1240 / 1240 Output Total 1600 / 2250 1850 / 1850 1250 / 3100 Balance -918.333 / 2091.667 -610 / -610 -1250 / -1860 Physical Exam Narrative: EXAM NARRATIVE: GEN: Awake, alert and oriented, no acute distress Did not permit remainder of examination Urinary Catheter Management^: Rowe: Cath Placed During This Visit: yes Reason for Continuing Indwelling Catheter: Other Urinary Catheter Date of Insertion: 12/17/19 Urinary Catheter Time of Insertion: 16:10 Data : 12/19/19 10:43 12/19/19 10:43 A&P Assessment and plan (1) Small bowel obstruction: Status: Acute (2) Diabetes: Status: Acute Qualifiers: Diabetes mellitus type: type 2 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 insulin use: with local company intermodal truck driver use Diabetes mellitus complication status: with hyperglycemia Qualified Code(s): E11.65 - Type 2 diabetes mellitus with hyperglycemia; Z79.4 - manager terminal (current) use of insulin (3) Abdominal pain: Status: Acute Qualifiers: Abdominal location: generalized Qualified Code(s): R10.84 - Generalized abdominal pain (4) Hypertension: Status: Acute Qualifiers: Hypertension type: essential hypertension Qualified Code(s): I10 - Essential (primary) hypertension (5) H/O heart valve replacement with bioprosthetic valve: Status: Acute Additional A&P Information Admitted to gen/surg 1. Small bowel obstrcution Improving, management per surgery 2. DM: Hba1c >9, poorly controlled DM, unwilling to take insulin or OHAs upon discharge. 3. HTN: no medications listed on med rec. BP has been controlled off of any medications 5. H/o hep C, unclear rx status. Currently LFT within range. HIV screen negative. 6. h/o bioprosthetic AV and MV repair, should be started on ASA 81mg qd upon discharge 7. change zyprexa from IM to PO now that able to take po Above intervnetions discussed with patient, however adamantly refuses any diabetes medications upon discharge. Refuses Aspirin. Tried to careers counsellor regarding importance of taking these medications with potential for severe morbidity from uncontrolled DM & valvular dysfunction, however states it will all be fine and i will not be discussing this any further Attestations Medical Necessity Statement*: per admitting team Coding Level of Care Code Acute Party Supply Specialist for [facility] Fwd Diagnoses Small bowel obstruction K56.609 Diabetes E11.65; Z79.4 Diabetes mellitus type: type 2 Diabetes mellitus prison insulin use: with prison use Diabetes mellitus complication status: with hyperglycemia Abdominal pain R10.84 Abdominal location: generalized Hypertension I10 Hypertension type: essential hypertension H/O heart valve replacement with bioprosthetic valve Z95.3
--- NOTE | 2019-12-19 23:39 | PC.NURSE ---
This nurse taking over care of patient. Patient resting in bed with eyes closed, even unlabored breathing. Nurse to continue to monitor.
[2019-12-20] VITALS: BP 120/83; PULSE 63; RESP 20; TEMP 35.6; O2SAT 99
--- NOTE | 2019-12-20 03:44 | PC.NURSE ---
Catheter associated pain Nurse called to bedside. Patient reporting extreme amount of pain from catheter. Patient unable to describe the pain or rate it on a scale of 0-10. Patient unsure of if he pulled on it. Patient states that it needs to come out or he will take it out. Pain medicine obtained as well as supplies to readjust the position of the catheter. When nurse returned to bedside patient was resting with eyes closed. Nurse reassessed pain. Patient states that the pain past and he is ok now. Nurse to continue to monitor. Pain medication wasted in pyxis.
[2019-12-20 04:00] VITALS: BP 141/96; PULSE 80; RESP 20; TEMP 35.8; O2SAT 100
--- NOTE | 2019-12-20 06:35 | PC.NURSE ---
Shift Summary Patient did not have any further events overnight. Patient rested with eyes closed the remainder of the shift with even, un-labored breathing. Patient had one moderate sized BM at the beginning of shift. No complaints of ABD pain or N/V. No needs identified at this time. Nurse to continue to monitor.
[2019-12-20 07:21] VITALS: BP 106/70; PULSE 67; RESP 18; TEMP 36.5; O2SAT 96
[2019-12-20] MEDS: sodium chlor 0.9% + KCl 20 mEq 20 MEQ/1,000 ML BAG 100 MEQ IV (10:20)
[2019-12-20] MEDS: pantoprazole 40 mg SDV IVP (10:21)
[2019-12-20] MEDS: OLANZapine 5 mg ODT 2.5 MG PO (10:24)
[2019-12-20 10:56] VITALS: BP 129/84; PULSE 71; RESP 18; TEMP 36.7; O2SAT 97
[2019-12-20 12:20] LABS: Basophils % 0.2 %; Eosinophils % 0.7 %; Hematocrit 44.8 % (42.0-52.0); Hemoglobin 14.9 g/dL (11.7-16.6); Lymphocytes # 1.4 10^3/uL (0.8-4.8); Lymphocytes % 33.3 %; Mean Corpuscular HGB Conc 33.3 g/dL (30.0-36.0); Mean Corpuscular Hemoglobin 30.2 pg (28.0-34.0); Mean Corpuscular Volume 90.7 fL (80-94); Mean Platelet Volume 9.8 fL (7.4-10.4); Monocytes # 0.3 10^3/uL (0.2-0.9); Monocytes % 6.5 %; Neutrophils # 2.54 10^3/uL (1.8-7.7); Neutrophils % 58.6 %; Nucleated Red Blood Cells % 0 %; Platelet Count 166 10^3/cmm (130-400); Red Blood Count 4.94 10^6/uL (4.1-5.3); Red Cell Distribution Width 12.5 % (12.1-15.1); White Blood Count 4.3 10^3/uL (4.0-10.0)
--- NOTE | 2019-12-20 12:26 | P.PN_ITS ---
Subjective Subjective: Interval history: Patient states that he is feeling better today, no nausea or vomiting, tolerating a liquid diet Vitals/I&O/Wt Last Vital Signs Temp 98.1 F 12/20/19 10:56 Pulse 71 12/20/19 10:56 Resp 18 12/20/19 10:56 BP 129/84 12/20/19 10:56 Pulse Ox 97 12/20/19 10:56 12/19/19 12/20/19 12/20/19 22:59 06:59 14:59 Intake Total 973.333 / 2213.333 1150 / 1150 Output Total 1250 / 6350 3250 / 6350 1350 / 1350 Balance -1250 / -4136.667 -2276.667 / -4136.667 -200 / -200 Physical Exam Narrative: EXAM NARRATIVE: Abdomen: Soft, nontender, nondistended Urinary Catheter Management^: Rowe: Cath Placed During This Visit: yes, but has since been removed by the nurse Reason for Continuing Indwelling Catheter: Decision to DC Catheter Urinary Catheter Date of Insertion: 12/17/19 Urinary Catheter Time of Insertion: 16:10 Date Urinary Catheter Removed: 12/20/19 Time Urinary Catheter Discontinued: 11:49 Data : 12/20/19 12:12 12/20/19 12:12 A&P Assessment and plan (1) Small bowel obstruction: 49-year-old gentleman who is homeless who was admitted with small bowel obstruction appears to be resolving with conservative measures. Continue with aggressive bowel regimen Diet as tolerated Lovenox for DVT prophylaxis Protonix for GI prophylaxis Status: Acute Attestations Medical Necessity Statement*: Small bowel obstruction, appears to be resolving Coding Level of Care Code Acute Shell Sieve Operator for [facility] Diagnoses Small bowel obstruction K56.609
[2019-12-20 12:45] LABS: Lactate (Lactic Acid level) 1.9 mmol/L (0.5-2.2)
[2019-12-20 13:15] LABS: Anion Gap 14.2 (5-19); Blood Urea Nitrogen 6 mg/dL (6-20); Calcium 8.8 mg/dL (8.5-10.5); Carbon Dioxide 26 mmol/L (22-29); Chloride 102 mmol/L (98-107); Glomerular Filtration Rate 120.9 mL/min (90-130); Glucose 230 mg/dL (65-115); Osmolality Calculated 289 mOsm/kg (285-295); Potassium 4.2 mmol/L (3.5-5.1); Sodium 138 mmol/L (136-145)
--- NOTE | 2019-12-20 13:18 | PC.NURSE ---
patient is hearing voices, wants his IV out and wants to leave the hospital. notified Dr Ortega
--- NOTE | 2019-12-20 13:34 | PC.NURSE ---
rcvd call from Dr Ortega to call Dr Domingo. Watch Guard Gate called NPU and nurse said Dr Domingo is not in unit at this time. Watch Guard Gate called rotary lithographic press operator and requested to be connected to Dr Domingo cell phone, was unable to leave message because mailbox is full.
--- NOTE | 2019-12-20 13:37 | PC.NURSE ---
patient said the voices are telling him to hurt someone. he said I need a weapon. Patient took the oxygen regulator off wall and said I am going to hurt someone with this. Pipe Fitter Maintenance called security. Security is in room with patient.
--- NOTE | 2019-12-20 13:53 | PC.NURSE ---
Dr Domingo in room with patient
--- NOTE | 2019-12-20 14:02 | PC.NURSE ---
Rcvd order from Dr Domingo for Haldol 5mg PO now and Haldol 5mg PO BID. Maintenance Shop Welder put orders in for Haldol.
[2019-12-20] MEDS: haloperidol 5 mg Tablet PO (14:08)
[2019-12-20 15:57] VITALS: BP 120/84; PULSE 62; RESP 18; TEMP 36.9; O2SAT 96
--- NOTE | 2019-12-20 16:32 | PC.NURSE ---
patient left AMA. Security Administrator notified Dr Domingo and Dr Ortega.
[2019-12-20 16:35] VITALS: BP 120/84; PULSE 62; RESP 18; TEMP 36.9; O2SAT 96
--- NOTE | 2019-12-20 16:36 | PC.NURSE ---
IV removed by patient. IV catheter intact.
--- NOTE | 2020-01-04 10:08 | PM.DCS ---
Discharge Providers Date of Admission: 12/17/19 15:58 Date of Discharge: January 04, 2020 Attending Provider at Admission: Star Ortega MD Attending Provider at Discharge: Star Ortega MD Diagnoses at Discharge Discharge Diagnosis (1) Small bowel obstruction: Status: Resolved Reason for Visit Reason for Visit: ABD PAIN; N/V Hospital Course Hospital Course: Shree Hickman is a 49 year old male who is homeless and presents to the ER with a 24-hour history of generalized abdominal pain. Patient states that the pain is generalized does not radiate, not worse with food intake or physical activity and is constant. It initially started as nausea with vomiting followed by multiple loose bowel movements and abdominal pain yesterday. Today continue present abdominal pain and he also had a loose bowel movement since he came to the floor half an hour ago. No urinary symptoms. Patient states that he is still episode about a year ago when he was admitted to [facility]. No fevers or chills. No hematemesis or melena. No prior abdominal surgeries. Patient had an NG tube placed that he pulled out 48 hours later. By then he had return of bowel function and is tolerating a full liquid diet. Patient decided to leave AMA Physical Exam Urinary Catheter Management^: Rowe: Cath Placed During This Visit: yes, but has since been removed by the nurse Reason for Continuing Indwelling Catheter: Decision to DC Catheter Urinary Catheter Date of Insertion: 12/17/19 Urinary Catheter Time of Insertion: 16:10 Date Urinary Catheter Removed: 12/20/19 Time Urinary Catheter Discontinued: 11:49 Discharge Data Data Completed and Pending: Completed Studies During Hospitalization Category Date Time Status CT abdomen pelvis w con* [id number] Rout ine Cat Scan 12/19/19 11:[address] abdomen pelvis w con* [id number] Stat Cat Scan 12/17/19 14:34 Completed XR abdomen min 2V [id number] Routine Exams 12/18/19 06:18 Completed XR abdomen min 2V [id number] Routine Exams 12/19/19 06:24 Completed XR chest 1V randy ble [id number] Routine Exams 12/17/19 20:18 Completed Vitals: Last Vital Signs Temp 98.4 F 12/20/19 16:35 Pulse 62 12/20/19 16:35 Resp 18 12/20/19 16:35 BP 120/84 12/20/19 16:35 Pulse Ox 96 12/20/19 16:35 Discharge Plan Discharge Patient Disposition: Left Against Medical Advice Condition: Stable Prescriptions: No Action No Known Home Medications RF: 0 Discharge Diet: Advance as tolerated Discharge Activity: Resume usual activity Discharge Date/Time: 12/20/19 16:35 Discharge Attestations Time Spent in Discharge Care*: less than 30 min Quality Metrics Clinical Quality Measures During this hospital stay, did patient experience: AMI Clinical Trial Participant: No Contraindication to aspirin (AMI): Patient self-discharge against medical advice Contraindication to statin: Patient self-discharge against medical advice Coding Level of Care Code Acute Food Preparation Supervisor for Janis Barakat Diagnoses Small bowel obstruction K56.609
== END 2019-12-20 16:35 | disposition left against medical advice (07) | DRG 389 ==
LOC: ER 15:13 → MEDSURG 16:55
PROVIDERS: Student in an Organized Health Care Education/Training Program; Admitting Provider Surgery; Emergency Provider Family Medicine; Visit Provider Surgery
DX: K56.609 Unspecified intestinal obstruction, unspecified as to partial versus complete obstruction (principal); F15.20 Other stimulant dependence, uncomplicated; Z59.0 Homelessness; Z53.29 Procedure and treatment not carried out because of patient's decision for other reasons; I25.10 Atherosclerotic heart disease of native coronary artery without angina pectoris; I10 Essential (primary) hypertension; B19.20 Unspecified viral hepatitis C without hepatic coma
CPT/HCPCS: 12345; 36415; 36416; 51702; 71045; 74019; 74177; 80048; 80053; 80061; 81001; 81003; 82962; 83036; 83605; 83690; 83721; 85025; 87493; 87506; 87806; 96372; 96375; 99284; C9113; J1650; J1815; J2060; J2405; J3490; J7030; Q9967

== ENCOUNTER 2019-12-25 10:02 | Emergency (ER) | payer SELFPAY ==
[2019-12-25 10:09] VITALS: BMI 38.7
[2019-12-25 10:12] VITALS: BP 142/101; PULSE 116; RESP 18; TEMP 36.7; O2SAT 96
--- NOTE | 2019-12-25 10:40 | XRR_ITS ---
PROCEDURE INFORMATION: Exam: XR Left Hand Exam date and time: 12/25/2019 10:43 AM Age: 49 years old Clinical indication: Hand; Left; Patient HX: Tip of 3rd digit is gone pain down thumb; Additional info: Trauma TECHNIQUE: Imaging protocol: XR Left hand. Views: 3 or more views. COMPARISON: No relevant prior studies available. FINDINGS: Bones/joints: Chronic deformity of the 3rd distal phalanx. 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 Mild osteoarthrosis of the thumb interphalangeal joint. No acute erosive or destructive changes. No radiographic evidence of acute fracture or dislocation. Alignment anatomic. Soft tissues: Mild nonspecific soft tissue swelling, most pronounced along the radial aspect of the distal forearm and thumb metacarpophalangeal joint. XR/XR hand LT min 3V* [id number] IMPRESSION: 1. Mild nonspecific soft tissue swelling, most pronounced along the radial aspect of the distal forearm and thumb metacarpophalangeal joint. 2. 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 3. Additional findings, as above.
[2019-12-25 11:43] LABS: Basophils % 0.4 %; Eosinophils % 0.4 %; Hematocrit 45.8 % (42.0-52.0); Hemoglobin 15.6 g/dL (11.7-16.6); Lymphocytes # 1.9 10^3/uL (0.8-4.8); Lymphocytes % 25.4 %; Mean Corpuscular HGB Conc 34.1 g/dL (30.0-36.0); Mean Corpuscular Volume 88.1 fL (80-94); Mean Platelet Volume 10.5 fL (7.4-10.4); Monocytes # 0.7 10^3/uL (0.2-0.9); Monocytes % 8.5 %; Neutrophils # 4.95 10^3/uL (1.8-7.7); Neutrophils % 64.9 %; Nucleated Red Blood Cells % 0 %; Platelet Count 200 10^3/cmm (130-400); Red Cell Distribution Width 12.4 % (12.1-15.1); White Blood Count 7.6 10^3/uL (4.0-10.0)
--- NOTE | 2019-12-25 12:30 | W.ED.EXTPRO ---
HPI - Extremity Problem General: Chief complaint: Extremity Problem,Nontraumatic Stated complaint: hand/wrist swelling & pain Time Seen by Provider: 12/25/19 10:25 Source: patient Mode of arrival: ambulatory Limitations: no limitations History of Present Illness: HPI Narrative: swelling to bilateral wrists and pain Review of Systems General: Reports: 10 or more systems reviewed and unremarkable except in HPI and below PFSH ED PFSH: Medical History Bowel obstruction CAD (coronary artery disease) Diabetes Hepatitis C Hypertension Surgical History History of aortic valve replacement with bioprosthetic valve History of heart valve replacement History of mitral valve replacement with bioprosthetic valve Social History Housing: Homeless Physical Exam Const: COMMON NORMALS: no acute distress, patient oriented x3, no limitations and alert GENERAL APPEARANCE: cooperative and comfortable ORIENTATION/CONSCIOUSNESS: Yes awake, Yes oriented to person, Yes oriented to place and Yes oriented to time HENMT: COMMON NORMALS: normocephalic, atraumatic, external ears normal, EAC's normal, TM's normal bilaterally and Normal external nose present HEAD & SCALP: normal to inspection, normocephalic and atraumatic FACE & SINUS: normal facial exam, sinuses nontender and face symmetric NOSE: Normal external nose present, Normal nares present and No nasal discharge present EXTERNAL EAR: Yes external ears normal EXTERNAL AUDITORY CANAL: EAC's normal TYMPANIC MEMBRANE: TM's normal bilaterally MOUTH: Normal oral and palatal mucosa present, lip normal and tongue normal THROAT: posterior oropharynx normal, tonsils normal and uvula midline Eye: COMMON NORMALS: Equal, round and reactive pupils present, EOMs intact bilaterally and conjunctivae normal GENERAL EYE: appearance normal, both eyes and all related structures and normal light reflex EYELID: eyelids normal CONJUNCTIVA: Yes conjunctivae normal PUPIL: Yes Equal, round and reactive pupils present EOM: Yes EOM abnormal DIRECT OPHTHALMOSCOPY: Yes normal light reflex Neck/C-Spine: COMMON NORMALS: full ROM, no lymphadenopathy, supple, no meningeal signs, no JVD and Thyroid normal GENERAL: Yes normal visual inspection THYROID: Thyroid normal CERVICAL SPINE: Yes cervical ROM normal and Yes normal cervical lordosis Lymph: LYMPHATIC: no lymphadenopathy noted Chest: COMMONS NORMALS: normal inspection of the chest and normal palpation of entire chest wall Resp: COMMON NORMALS: normal respiratory effort, No retractions and clear to auscultation bilaterally AUSCULTATION: clear to auscultation bilaterally Cardio: COMMON NORMALS: no JVD, regular rate, regular rhythm, S1 normal heart sound present, S2 normal heart sound present, No gallops present (Cardio), No clicks present (Cardio), No murmurs present (Cardio), No rub (Cardio) and Peripheral pulses 2+ throughout RATE: regular rate RHYTHM: regular rhythm HEART SOUNDS: S1 normal heart sound present and S2 normal heart sound present PERIPHERAL PULSES: Peripheral pulses 2+ throughout GI: COMMON NORMALS: Normal to inspection, nondistended, normoactive bowel sounds present, Soft to palpation, non-tender and no masses PALPATION: Yes Soft to palpation : COMMON NORMALS: Yes no CVA tenderness BLADDER/KIDNEY EXAM: Yes no CVA tenderness Back/Pelvis: COMMON NORMALS: no CVA tenderness, thoracic and lumbar spine normal to inspection, no thoracic nor lumbar tenderness and thoraco-lumbar ROM normal Extremity: COMMON NORMALS: normal to inspection, full ROM, capillary refill normal, no joint enlargement, no clubbing, cyanosis or edema, no calf tenderness and no pedal edema GENERAL: Yes normal exam except as noted RIGHT UPPER EXTREMITY: Yes elbow joint (pain with ROM) and Yes wrist (mild swelling and pain with ROM) LEFT UPPER EXTREMITY: Yes elbow joint (pain with motion ) Left elbow: Yes ROM and Yes wrist (pain with ROM) Left wrist: Yes ROM Neuro: COMMON NORMALS: patient oriented x3, moves all extremities, no focal motor deficits, no sensory deficits noted and gait normal SENSORIUM/ORIENTATION: Yes alert, Yes oriented to person, Yes oriented to place and Yes oriented to time MENINGEAL SIGNS: Yes no meningeal signs Psych: COMMON NORMALS: mental status grossly normal, Normal thought process present, cooperative, normal affect, speech normal and activity/motor behavior normal SPEECH: Yes normal speech THOUGHT PROCESS: Normal thought process present Skin: COMMON NORMALS: no rashes or lesions noted, no wounds and turgor normal GENERAL SKIN EXAM: no rashes or lesions noted and turgor normal Course ED course: Pt presents with complaints of wrist and elbow pain on the left and right upper extremities. He recently started a new job and states it has worsened since then. He states he used meth a few days ago. Xray ordered. Reevaluation(s): Reevaluation #1: No acute findings. Will treat for arthritis. Will advise RICE therapy and treatment with NSAIDs daily as well as consideration of a plant based diet. Time: 12:36 Vital Signs: Vital signs: Vital Signs Temperature 98.0 F 12/25/19 10:12 Pulse Rate 116 H 12/25/19 10:12 Respiratory Rate 18 12/25/19 10:12 Blood Pressure 142/101 12/25/19 10:12 Pulse Oximetry 96 12/25/19 10:12 MDM - Extremity (Nontraumatic) Lab Data: Labs: Lab Results 12/25/19 Range/Units 11:29 WBC 7.6 (4.0-10.0) 10^3/ uL RBC 5.20 (4.1-5.3) 10^6/u L Hgb 15.6 (11.7-16.6) g/dL Hct 45.8 (42.0-52.0) % MCV 88.1 (80-94) fL MCH 30.0 (28.0-34.0) pg MCHC 34.1 (30.0-36.0) g/dL RDW 12.4 (12.1-15.1) % Plt Count 200 (130-400) 10^3/c mm MPV 10.5 H (7.4-10.4) fL Neut % (Auto) 64.9 % Lymph % (Auto) 25.4 % Pepin % (Auto) 8.5 % Eos % (Auto) 0.4 % Baso % (Auto) 0.4 % Neut # (Auto) 4.95 (1.8-7.7) 10^3/u L Lymph # (Auto) 1.9 (0.8-4.8) 10^3/u L Pepin # (Auto) 0.7 (0.2-0.9) 10^3/u L Eos # (Auto) 0.0 (0.0-0.8) 10^3/u L Baso # (Auto) 0.0 (0.0-0.1) 10^3/u L Nucleated RBC % (a uto) 0 % Nucleated RBCs # 0.0 /100WBC Imaging Data^: Other Xray: Radiologist's impression: [address] [place] [address] XRay Report Signed Patient: Shree Hickman Unit #: [id number] : 1970 Age/Sex: 49 / M ADM Date: 12/25/19 Loc: ER Room/Bed: Attending Dr: Ordering Provider/Ordering MD: Yecenia Rodríguez NP Date of Service: 12/25/19 Procedure(s): XR hand LT min 3V* [id number] Accession Number(s): [id number] Report Number: [id number] PROCEDURE INFORMATION: Exam: XR Left Hand Exam date and time: 12/25/2019 10:43 AM Age: 49 years old Clinical indication: Hand; Left; Patient HX: Tip of 3rd digit is gone pain down thumb; Additional info: Trauma TECHNIQUE: Imaging protocol: XR Left hand. Views: 3 or more views. COMPARISON: No relevant prior studies available. FINDINGS: Bones/joints: Chronic deformity of the 3rd distal phalanx. 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 Mild osteoarthrosis of the thumb interphalangeal joint. No acute erosive or destructive changes. No radiographic evidence of acute fracture or dislocation. Alignment anatomic. Soft tissues: Mild nonspecific soft tissue swelling, most pronounced along the radial aspect of the distal forearm and thumb metacarpophalangeal joint. XR/XR hand LT min 3V* [id number] IMPRESSION: 1. Mild nonspecific soft tissue swelling, most pronounced along the radial aspect of the distal forearm and thumb metacarpophalangeal joint. 2. 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 3. Additional findings, as above. Dictated By: Jonathan Preciado MD Signed By: Jonathan Preciado MD Signed Date/Time: 12/25/19 1106 DD/ 1104 Discharge Plan Discharge Patient Disposition: Home Clinical Impression: Arthritis of both wrists Condition: Stable Prescriptions: No Action No Known Home Medications RF: 0 Discharge Diet: Usual diet Discharge Activity: Increase activity as tolerated Activity Restrictions/Additional Instructions: Rest, ice, stop repetitive motions as much as possible. NSAIDs to help with inflammation such as Aleve daily. Consider a plant based diet to help decrease inflammation in body. Coding Level of Care Code ED Grommet Machine Operator for Janis Barakat
[2019-12-25] MEDS: dexamethasone 10 mg/mL INJ 8 MG IM (13:08)
[2019-12-25] MEDS: orphenadrine 30 mg/mL Inj 2 mL 60 MG IM (13:09)
[2019-12-25] MEDS: ketorolac 60 mg/2 mL INJ IM (13:09)
[2019-12-25 13:15] VITALS: BP 131/100; PULSE 97; RESP 18; TEMP 37.1; O2SAT 97
== END 2019-12-25 13:17 | disposition home or self-care (01) ==
PROVIDERS: Emergency Provider Nurse Practitioner Family
DX: M13.832 Other specified arthritis, left wrist (principal); M13.831 Other specified arthritis, right wrist; I25.10 Atherosclerotic heart disease of native coronary artery without angina pectoris; E11.9 Type 2 diabetes mellitus without complications; Z86.19 Personal history of other infectious and parasitic diseases; I10 Essential (primary) hypertension
CPT/HCPCS: 12345; 36415; 73130; 85025; 96372; 99281; 99283; J1100; J1885; J2360

== ENCOUNTER 2020-01-19 21:52 | Inpatient (IN) | payer SELFPAY ==
[2020-01-19 21:59] VITALS: BP 150/107; PULSE 96; RESP 18; TEMP 35.7; O2SAT 98; BMI 34.2
--- NOTE | 2020-01-19 22:01 | W.ED.PSYCH ---
HPI - Psych General: Chief Complaint: Psychiatric Symptoms Stated Complaint: mhe Time Seen by Provider: 01/19/20 21:59 Source: patient Mode of arrival: ambulatory History of Present Illness: HPI Narrative: 50-year-old male who states he is at his wits end and is having suicidal thoughts and a plan. He states he had a hotel service manager knife and was going to cut himself with a hotel service manager knife to kill himself. Patient denies any worsening or improving factors. He has had history of psychiatric issues in the past. MD complaint: suicidal ideation Onset (ago): day(s) Associated symptoms: Reports depression and suicidal ideation Review of Systems Const: Denies: fever(s), chills, body aches or change in appetite Eyes: Denies: blurry vision or eye discomfort ENMT: Denies: throat pain or dental pain Card: Denies: chest pain Resp: Denies: dyspnea GI: Denies: abdominal pain, nausea, vomiting or diarrhea : Denies: dysuria Musc: Denies: neck pain or back pain Skin/Breast: Denies: rash Neuro: Denies: headache(s) Psych: Reports: depression and suicidal ideation Jefferson/Lymph: Denies: easy bruising All/Imm: Denies: urticaria PFSH ED PFSH: Medical History Bowel obstruction CAD (coronary artery disease) Diabetes Hepatitis C Hypertension Surgical History History of aortic valve replacement with bioprosthetic valve History of heart valve replacement History of mitral valve replacement with bioprosthetic valve Social History Housing: Homeless Physical Exam Const: COMMON NORMALS: no acute distress, patient oriented x3 and healthy appearing HENMT: COMMON NORMALS: normocephalic and atraumatic HEAD & SCALP: normocephalic and atraumatic Eye: COMMON NORMALS: Equal, round and reactive pupils present and EOMs intact bilaterally PUPIL: Yes Equal, round and reactive pupils present Neck/C-Spine: COMMON NORMALS: full ROM and supple Chest: COMMONS NORMALS: normal inspection of the chest and normal palpation of entire chest wall Resp: COMMON NORMALS: normal respiratory effort, No retractions, No use of accessory muscles and clear to auscultation bilaterally AUSCULTATION: clear to auscultation bilaterally Cardio: COMMON NORMALS: regular rate, regular rhythm and No murmurs present (Cardio) RATE: regular rate RHYTHM: regular rhythm GI: COMMON NORMALS: Normal to inspection, nondistended, normoactive bowel sounds present, Soft to palpation, non-tender and no masses PALPATION: Yes Soft to palpation Extremity: COMMON NORMALS: normal to inspection and full ROM Neuro: COMMON NORMALS: patient oriented x3, moves all extremities and no focal motor deficits Psych: COMMON NORMALS: mental status grossly normal, Normal thought process present and cooperative APPEARANCE: Yes disheveled ATTITUDE: Yes paranoid THOUGHT PROCESS: Normal thought process present and disorganized THOUGHT CONTENT: Yes Suicidality present Skin: COMMON NORMALS: no rashes or lesions noted and no wounds GENERAL SKIN EXAM: no rashes or lesions noted MDM - Psych MDM Narrative: Medical decision making narrative: Patient presents here with suicidal ideations with a plan to kill himself. Patient is well-appearing here and is medically cleared. He is hyperglycemic due to noncompliance patient given IM insulin. I spoke to Dr. Domingo and informed him of lab results and will admit to psychiatric unit. Lab Data: Labs: Lab Results 01/19/20 01/19/20 Range/Units 22:39 22:39 WBC 6.8 (4.0-10.0) 10^3/ uL RBC 4.75 (4.1-5.3) 10^6/u L Hgb 14.3 (11.7-16.6) g/dL Hct 41.8 L (42.0-52.0) % MCV 88.0 (80-94) fL MCH 30.1 (28.0-34.0) pg MCHC 34.2 (30.0-36.0) g/dL RDW 12.0 L (12.1-15.1) % Plt Count 190 (130-400) 10^3/c mm MPV 10.6 H (7.4-10.4) fL Neut % (Auto) 61.3 % Lymph % (Auto) 31.4 % Gilmer % (Auto) 5.9 % Eos % (Auto) 0.4 % Baso % (Auto) 0.3 % Neut # (Auto) 4.14 (1.8-7.7) 10^3/u L Lymph # (Auto) 2.1 (0.8-4.8) 10^3/u L Gilmer # (Auto) 0.4 (0.2-0.9) 10^3/u L Eos # (Auto) 0.0 (0.0-0.8) 10^3/u L Baso # (Auto) 0.0 (0.0-0.1) 10^3/u L Nucleated RBC % (a uto) 0 % Nucleated RBCs # 0.0 /100WBC Sodium 129 L (136-145) mmol/L Potassium 3.9 (3.5-5.1) mmol/L Chloride 95 L (98-107) mmol/L Carbon Dioxide 22 (22-29) mmol/L Anion Gap 15.9 (5-19) BUN 15 (6-20) mg/dL Creatinine 0.8 (0.7-1.2) mg/dL GFR Calculation 103.2 (90-130) mL/min Glucose 421 H (65-115) mg/dL Calculated Osmolal ity 282 L (285-295) mOsm/k g Calcium 9.4 (8.5-10.5) mg/dL Total Bilirubin 0.2 (0.15-1.2) mg/dL AST 12 (0-40) U/L ALT 14 (0-41) U/L Alkaline Phosphata se 92 (40-130) IU/L Total Protein 7.1 (6.6-8.7) g/dL Albumin 4.4 (3.5-5.2) g/dL Globulin 2.7 (1.3-4.6) g/dL Salicylates < 0.3 L (3-10) mg/dL Acetaminophen < 5.0 L (10-30) ug/mL Ethyl Alcohol < 10 (0-10) mg/dL Discharge Plan Discharge Patient Disposition: Xfer Other Clinical Impression: Suicidal ideation Condition: Stable Coding Level of Care Code ED Experimental Mechanic Electrical for Janis Fwd Exam Comprehensive
[2020-01-19] MEDS: LORazepam 2 mg/mL INJ 1 mL IM (22:26)
[2020-01-19] MEDS: haloperidol inj 5 mg/mL INJ 1 mL IM (22:26)
[2020-01-19 22:58] LABS: Basophils % 0.3 %; Eosinophils % 0.4 %; Hematocrit 41.8 % (42.0-52.0); Hemoglobin 14.3 g/dL (11.7-16.6); Lymphocytes # 2.1 10^3/uL (0.8-4.8); Lymphocytes % 31.4 %; Mean Corpuscular HGB Conc 34.2 g/dL (30.0-36.0); Mean Corpuscular Hemoglobin 30.1 pg (28.0-34.0); Mean Platelet Volume 10.6 fL (7.4-10.4); Monocytes # 0.4 10^3/uL (0.2-0.9); Monocytes % 5.9 %; Neutrophils # 4.14 10^3/uL (1.8-7.7); Neutrophils % 61.3 %; Nucleated Red Blood Cells % 0 %; Platelet Count 190 10^3/cmm (130-400); Red Blood Count 4.75 10^6/uL (4.1-5.3); White Blood Count 6.8 10^3/uL (4.0-10.0)
[2020-01-19 23:09] LABS: Alanine Aminotransferase 14 U/L (0-41); Albumin Level 4.4 g/dL (3.5-5.2); Alkaline Phosphatase 92 IU/L (40-130); Aspartate Amino Transferase 12 U/L (0-40); Blood Urea Nitrogen 15 mg/dL (6-20); Calcium 9.4 mg/dL (8.5-10.5); Carbon Dioxide 22 mmol/L (22-29); Chloride 95 mmol/L (98-107); Globulin 2.7 g/dL (1.3-4.6); Glomerular Filtration Rate 103.2 mL/min (90-130); Glucose 421 mg/dL (65-115); Osmolality Calculated 282 mOsm/kg (285-295); Sodium 129 mmol/L (136-145); Total Bilirubin 0.2 mg/dL (0.15-1.2); Total Protein 7.1 g/dL (6.6-8.7)
[2020-01-19 23:10] LABS: Acetaminophen < 5.0 ug/mL (10-30); Alcohol Level < 10 mg/dL (0-10); Anion Gap 15.9 (5-19); Potassium 3.9 mmol/L (3.5-5.1); Salicylate < 0.3 mg/dL (3-10)
[2020-01-19 23:33] VITALS: PULSE 80; RESP 18; O2SAT 98
[2020-01-19 23:37] VITALS: BP 119/80; PULSE 70; RESP 17; TEMP 36.6; O2SAT 95
[2020-01-19 23:48] LABS: Amphetamines Screen Urine Negative (Negative); Barbiturates Screen Urine Negative (Negative); Benzodiazepines Screen Urine Negative (Negative); Cocaine Screen Urine Negative (Negative); Opiate Screen Urine Negative (Negative); PCP Screen Urine Negative (Negative); THC Screen Urine Positive (Negative)
[2020-01-20 06:00] VITALS: BP 99/70; PULSE 67; RESP 20; TEMP 36.8; O2SAT 96
[2020-01-20 07:31] LABS: Glucose Point of Care 400 mg/dL (70-110)
[2020-01-20 09:59] LABS: Estmated Average Glucose 280; Hemoglobin A1C 11.4 % (4.0-6.0)
[2020-01-20 10:51] LABS: Glucose Point of Care 394 mg/dL (70-110)
[2020-01-20] MEDS: insulin glargine 100 units/1 mL 15 UNIT SUBCUT (11:04)
--- NOTE | 2020-01-20 11:41 | PC.SOCIAL ---
Hospitalist reported that he had a mitral & atrial valve replacement done in the past and wanted records on this surgery. Per old records show that he had this done by Dr. Kirk at [facility] in May 2018. Release of Records form completed and waiting for patient signature when he wakes up.
--- NOTE | 2020-01-20 12:08 | PC.NURSE ---
Patient visited with Dr. Clifford Braxton and stated that he had his heart surgeries about 2 years ago with , cardio-thoracic surgeon, at [facility] in [place], [place]. He said he had the surgery because he used to use alot of dope and developed a fungal infection afterwards. He reports that he does not use and has never used any anticoagulation medication. His blood sugar is not well controlled and he will be on long acting Lantus and a sliding scale insulin until the time that he is more level in his blood glucose. His current A1C is 11.4. readings this morning were 431 on admit, 400 prior to breakfast, 394 before lunch. He received 10 units Novalog and 15 units of Lantus this morning and 14 units of Novalog this afternoon at lunch time. If any issues develop call Dr. Clifford Braxton;
--- NOTE | 2020-01-20 12:42 | PM.CONSULT ---
Providers/Reason For Consult Consulting Physican/Specialty*: michaela Herediaist Reason for Consult*: Diabetic management Requesting Physcian: Dr. Domingo, psychiatry Attending Physician: Sampson Domingo MD History of Present Illness History of Present Illness Shree Hickman is a 50 year old male with a past medical history of bacterial endocarditis status post aortic and mitral valve replacement and diabetes mellitus that presented to the emergency department for suicidal ideation. Patient was admitted to neuropsychiatric unit and consult called due to patient having uncontrolled blood sugars. On discussion with patient he reported that he has not been on any medications recently, currently homeless. He denies having a primary care provider and denies following up with any physician regularly. He states that he had heart surgery couple of years ago by cardiothoracic surgeon at [facility] in [facility]. 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 Patient reports that he has known that he had diabetes mellitus but is not been on any medications, initially refusing to take insulin but is now agreed. Review of Systems Const: Denies: fever(s) or chills Card: Denies: chest pain, palpitations or edema Resp: Denies: dyspnea or productive cough GI: Denies: abdominal pain, nausea, vomiting, diarrhea, constipation, hematochezia or melena : Denies: dysuria or hematuria Skin/Breast: Denies: rash or new lesions Neuro: Denies: headache(s) Endo: Reports: polyuria and polydipsia; Denies: hot flashes Jefferson/Lymph: Denies: easy bruising or easy bleeding Meds/Allergies Home Medications and Allergies Home Medications Medication Instructions Recorded Confirmed Last Taken Type No Known Home Medications 12/17/19 12/25/19 Unknown History Allergies Allergy/AdvReac Type Severity Reaction Status Date / Time No Known Allergies Allergy Verified 12/25/19 10:14 Current Medications Current Medications Generic Name Dose Route Start Last Admin Trade Name Freq PRN Reason Stop Dose Admin Insulin Aspart 0 unit 01/20/20 12:00 01/20/20 12:10 Novolog SUBCUT 14 unit TIDWM ROMA Administration Protocol Insulin Glargine 15 unit 01/20/20 11:00 01/20/20 11:04 Lantus SUBCUT 15 unit DAILY ROMA Administration PFSH Acute PFSH: Medical History Bowel obstruction CAD (coronary artery disease) Diabetes Hepatitis C History of bacterial endocarditis Hypertension Surgical History History of aortic valve replacement with bioprosthetic valve History of heart valve replacement History of mitral valve replacement with bioprosthetic valve Social History Housing: Homeless Supplemental [facility] Information: Denies any family history of health problems Denies smoking, denies current alcohol use, denies current illicit drug use. Does report past history of IV drug use Vitals/I&O/Wt Last Vital Signs Temp 98.2 F 01/20/20 06:00 Pulse 67 01/20/20 06:00 Resp 20 H 01/20/20 06:00 BP 99/70 01/20/20 06:00 Pulse Ox 96 01/20/20 06:00 Weight last 48 hrs Weight 102.058 kg Physical Exam Const: COMMON NORMALS: patient oriented x3 and alert ORIENTATION/CONSCIOUSNESS: Yes awake, Yes oriented to person, Yes oriented to place and Yes oriented to time OTHER: Anxious yet cooperative HENMT: COMMON NORMALS: normocephalic and atraumatic HEAD & SCALP: normocephalic and atraumatic Eye: COMMON NORMALS: Equal, round and reactive pupils present PUPIL: Yes Equal, round and reactive pupils present Neck/C-Spine: COMMON NORMALS: supple GENERAL: Yes normal visual inspection Resp: COMMON NORMALS: normal respiratory effort and clear to auscultation bilaterally EFFORT & INSPECTION: Yes able to speak in complete sentences AUSCULTATION: clear to auscultation bilaterally, no rhonchi and no wheezes Cardio: COMMON NORMALS: regular rate, regular rhythm and No murmurs present (Cardio) RATE: regular rate RHYTHM: regular rhythm OTHER: Prior sternotomy incision without any surrounding erythema, well-healed GI: INSPECTION: No abdominal distension Extremity: COMMON NORMALS: no clubbing, cyanosis or edema Neuro: COMMON NORMALS: patient oriented x3, CN's II-XII intact bilaterally, moves all extremities and no focal motor deficits SENSORIUM/ORIENTATION: Yes alert, Yes oriented to person, Yes oriented to place and Yes oriented to time SPEECH: speech normal Psych: COMMON NORMALS: cooperative OTHER: Anxious, restless, cooperative with questions Skin: COMMON NORMALS: no rashes or lesions noted GENERAL SKIN EXAM: no rashes or lesions noted A&P Assessment and plan (1) Diabetes: Known diabetes mellitus, noncompliance with medications Hemoglobin A1c 11.4 We will start on Lantus 15 units daily, moderate dose sliding scale insulin as needed. Transition slowly to increase Lantus with goal to get rid of sliding scale insulin to decrease number of needle injections Carbohydrate consistent diet Status: Acute (2) H/O heart valve replacement with bioprosthetic valve: What sounds like history of bacterial endocarditis status post aortic and mitral valve replacement by cardiothoracic surgeon at [facility] in [facility] Patient reports this was 2 years ago Reports that he is supposed to be on metoprolol, due to soft blood pressure will hold off at this time Discussed with nursing and attempt to obtain records from outside facility Status: Acute Additional A&P Information Suicidal ideation: Per primary attending Consult Attestations Medical Necessity Statement: Per primary attending Coding Level of Care Code Acute Teletype Telegrapher for Janis Barakat Diagnoses Diabetes E11.9 H/O heart valve replacement with bioprosthetic valve Z95.3
[2020-01-20 14:00] VITALS: BP 134/87; PULSE 85; RESP 18; TEMP 36.6; O2SAT 98
--- NOTE | 2020-01-20 14:50 | P.HP_ITS ---
Providers/Chief Complaint Admitting Physician: Sampson Domingo MD Chief Complaint: mhe HPI NPU History of Present Illness Shree Hickman is a 50 year old male who presented to the emergency department reporting that he was at his wits end and having suicidal thoughts with a plan. He stated he had a communications technologist knife and was going to cut himself with a communications technologist knife to kill himself with a history of psychiatric admissions and treatment in the past. He endorsed depression and suicidal ideation. He said he had a communications technologist knife, but nothing was found in his belongings. He was admitted to the neuropsychiatric unit for definitive treatment of those issues. When he presented to the unit, he was a poor historian, very distraught and unable to give a beneficial history for his situation. Of note, he suffers from diabetes and his blood sugars when he first made it to the unit and when he was in the emergency room was in the 400 range. His hemoglobin A1c was 11.4. He has a reported history of some valve replacements and given his elevated white count and uncontrolled diabetes a hospitalist consult was initiated. All he was able to really say during the interview, was that he feels horrible, that his life is not worth living, and he does not know what he is going to do if something does not change. He acknowledged that he had not been managing his blood sugars recently. He acknowledged that he had been not adherent to any medication and was unable to give a history of medications that he in fact had taken or had been successful and said he did not want to talk anymore. During the interview though, he did identify that he was last in [facility] inpatient sometime in 2019 and we reviewed that note. He agreed that it was an accurate representation of his history and an excerpt of that is included below. Per last [facility] IP psychiatric eval: History of Present Illness Date of Service: October 29, 2018 Chief Complaint: Reported Homicidal ideation HPI: Shree Hickman is a 48-year-old man who was readmitted through the emergency room on a 96 hour hold for homicidal ideation towards his father or anyone else. Affidavits are reviewed on the chart indicated that the patient was reporting wanting to kill people/go down the street shooting people. He also reported that he would take the nursing staff hostage if he was admitted against as well. In the emergency room alcohol was negative, and he refused a urine drug screen. Patient was agitated and given Haldol 5 mg. He also was reporting acute chest pain with EKG/troponin unremarkable ?2. Blood sugars were mildly elevated from 154 through 198 over the interval, and hospitalist was consulted for general medical management. The patient was subsequently admitted to the neuropsychiatric unit for further psychiatric evaluation and stabilization. Today, the patient denied any further homicidal ideation or any suicidal ideation or hallucinations to nursing staff. However, he became increasingly agitated over the course of the morning yelling and screaming in his room and received a B-52 for agitation. The patient is currently sedated and a poor historian due to irritability and apparent intellectual disability. The patient refused interview and physical exam by this provider. When this provider approached him in bed, he did answer a couple of questions briefly stating that he has been feeling like wanting to hurt everybody for unknown reasons ( I don't know. ). Reports that yesterday I didn't feel good. Just had a bad day. Lost everything. He reports that he is now homeless. He reports feeling depressed and irritable but denies overt suicidal thoughts. He denies that he uses any drugs/alcohol use nor that he has ever taken any psychiatric medications previously. He otherwise refuses to answer any other questions for this provider. Past psychiatric history: Per records- He has a history of recent NPU admission from October 14-2018 with discharge diagnosis of delirium secondary to hyperglycemia/methamphetamine intoxication resolved/homicidal ideation. Last discharge medications included Remeron 30 mg daily at bedtime and Minipress 2 mg daily at bedtime, but the patient does not answer as to whether he took these medications after discharge. Patient reports other prior psychiatric admissions to a hospital in [place]. He cannot recall any other past medication names at this time but reported prior medication trials were unhelpful. Otherwise unable to obtain at this time. Family history: Unknown Past medical history: Insulin-dependent diabetes, hypertension. Otherwise unable to obtain at this time. Social history: He denies using any drugs or alcohol but drug screen was positive for cannabis/methamphetamine as during prior admissions and there is also some mention of history of IV drug abuse in the chart. Otherwise unable to obtain at this time. Per records- the patient had recently been living in [place] and reported family in the [place] area including a his son and father. Review of the [email or web address] on him list of 3 pages of criminal charges dating back to 2004. Those listings are being reviewed. So far they have been all nonviolent crimes such as burglary, resisting arrest, running away from her arrest, drug possession, and creating a nuisance. Meds NPU Home Medications Medication Instructions Recorded Confirmed Last Taken Type No Known Home Medications 12/17/19 12/25/19 Unknown History Allergies Allergy/AdvReac Type Severity Reaction Status Date / Time No Known Allergies Allergy Verified 12/25/19 10:14 PFSH NPU PFSH: Medical History Bowel obstruction CAD (coronary artery disease) Diabetes Hepatitis C History of bacterial endocarditis Hypertension Surgical History History of aortic valve replacement with bioprosthetic valve History of heart valve replacement History of mitral valve replacement with bioprosthetic valve Social History Housing: Homeless Mental Status Exam MSE Comments: This is an obese, white male, with a hospital gown on, and no shirt, unkempt, with essentially no eye contact. No abnormal movements except for psychomotor retardation in general, but psychomotor agitation with engagement. Uncooperative with exam in moderate to severe distress at times. Speech was increased rate and volume. Mood described as depressed; affect agitated. Thought process, linear. Thought content: patient endorsed suicidal ideation, there was no homicidal ideation endorsed. He endorsed hearing things, but no delusional content was noted. He did not appear to be attending to internal stimuli. Attention and concentration were impaired, and memory is unreliable, but none were formally tested. He is alert and oriented times three. Insight and judgment are impaired. Impulse control is impaired. Vitals/I&O/Wt Last Vital Signs Temp 97.9 F 01/20/20 22:00 Pulse 74 01/20/20 22:00 Resp 17 01/20/20 22:00 BP 110/71 01/20/20 22:00 Pulse Ox 96 01/20/20 22:00 Weight last 48 hrs Weight 102.058 kg Data NPU : 01/19/20 22:39 01/19/20 22:39 A&P Assessment and plan (1) Suicidal ideation: Status: Acute (2) H/O heart valve replacement with bioprosthetic valve: Status: Acute (3) Diabetes: Status: Acute (4) Psychosis: Status: Acute (5) Substance abuse: Status: Acute Additional A&P Information This is a 50 year old, white male, with a history of addiction, psychosis, question of substance abuse, psychotic disorder versus organic psychotic disorder, who presents very agitated with a history of needing prn medication to manage him when he initially presents to the unit, who presents essentially wanting to be left alone and not open to a discussion about medication. RECOMMENDATION AND PLAN: Continue current medication. We will explore history and attempt to get him to try an antipsychotic medication. Encourage individual, group, and milieu therapy. Continue q-15 minute checks for safety. Recommend sober living treatment at the highest level of care to which the patient is willing to commit. Involuntary Hold Information 96 Hour Hold: 96 Hour Involuntary Admission: Yes 96 Hour Hold Ending Date: 01/25/20 96 Hour Hold Ending Time: 21:55 Attestations NPU Medical Necessity Statement*: Inpatient hospitalization is medically necessary and the clinically appropriate intervention at this time. We will initiate medications and make changes as indicated. He will be in the hospital for over 2 midnights. Likely length of stay 4-6 days. Coding Level of Care Code Acute Produce Field Merchandiser for Janis Barakat Diagnoses Suicidal ideation R45.851 H/O heart valve replacement with bioprosthetic valve Z95.3 Diabetes E11.9 Psychosis F29 Substance abuse F19.10
[2020-01-20 16:40] LABS: Glucose Point of Care 262 mg/dL (70-110)
[2020-01-20] MEDS: OLANZapine 5 mg ODT PO (17:09)
--- NOTE | 2020-01-20 17:10 | PC.NURSE ---
PRN ZYPREXA ZYDIS ZYPREXA ZYDIS 5MG PO PER PATIENT C/O ANXIETY/AGITATION. WILL CONTINUE TO MONITOR FOR MEDICATION EFFECTIVENESS.
--- NOTE | 2020-01-20 18:00 | PC.NURSE ---
PRN ZYPREXA ZYDIS FOLLOW UP MEDICATION SOMEWHAT EFFECTIVE. PATIENT IS WALKING THE HALLS BUT NO S/S OF ANXIETY/AGITATION. NO FURTHER C/O ANXIETY/AGITATION.
[2020-01-20 20:41] LABS: Glucose Point of Care 178 mg/dL (70-110)
[2020-01-20 22:00] VITALS: BP 110/71; PULSE 74; RESP 17; TEMP 36.6; O2SAT 96
[2020-01-21 06:00] VITALS: BP 111/74; PULSE 67; RESP 18; TEMP 36.5; O2SAT 99
[2020-01-21 06:57] LABS: Glucose Point of Care 252 mg/dL (70-110)
[2020-01-21] MEDS: insulin glargine 100 units/1 mL 20 UNIT SUBCUT (09:40)
--- NOTE | 2020-01-21 10:39 | PM.PN ---
Subjective Subjective: Interval history: Patient sleeping comfortably in bed. Did not wake him but did discuss with nursing, no concerns at this time. Patient has been in agreement to insulin Vitals/I&O/Wt Last Vital Signs Temp 97.7 F 01/21/20 06:00 Pulse 67 01/21/20 06:00 Resp 18 01/21/20 06:00 BP 111/74 01/21/20 06:00 Pulse Ox 99 01/21/20 06:00 Weight last 48 hrs Weight 102.058 kg Physical Exam Narrative: EXAM NARRATIVE: Patient resting comfortably in bed in no acute distress No respiratory distress Normal peripheral perfusion Data : 01/19/20 22:39 01/19/20 22:39 A&P Assessment and plan (1) Diabetes: Known diabetes mellitus, noncompliance with medications Hemoglobin A1c 11.4 Increase Lantus to 20 units daily, continue with sliding scale insulin Carbohydrate consistent diet Status: Acute (2) H/O heart valve replacement with bioprosthetic valve: What sounds like history of bacterial endocarditis status post aortic and mitral valve replacement by cardiothoracic surgeon at [facility] in [facility] Status: Acute Additional A&P Information Suicidal ideation: Per primary attending Attestations Medical Necessity Statement*: Per primary attending Coding Level of Care Code Acute Binding Stitcher for Janis Barakat Diagnoses Diabetes E11.9 H/O heart valve replacement with bioprosthetic valve Z95.3
[2020-01-21 11:23] LABS: Glucose Point of Care 290 mg/dL (70-110)
[2020-01-21] MEDS: OLANZapine 5 mg ODT PO (12:04)
--- NOTE | 2020-01-21 12:04 | PC.NURSE ---
patient c/o hearing voices , talking to the voices, getting agitated pacing in wall talking to himself, PRN Zyprexa given.
[2020-01-21] MEDS: diphenhydrAMINE 50 mg/mL SDV 1mL IM (12:58)
[2020-01-21] MEDS: haloperidol inj 5 mg/mL INJ 1 mL IM (12:58)
[2020-01-21] MEDS: LORazepam 2 mg/mL INJ 1 mL IM (12:59)
--- NOTE | 2020-01-21 12:59 | PC.NURSE ---
Patients agaitation has increased yelling out in room, pacing in wall, then back to room , asked patient if he would take a shot, PRN meds given see MAR
[2020-01-21 13:44] VITALS: RESP 18; TEMP 36.8
--- NOTE | 2020-01-21 14:22 | PM.NPN ---
Subjective NPU Subjective: Interval history: Shree presents today with some improvement from yesterday, but still resistant to a conversation about medication, reporting he just wants to feel a little better than he does right now. He reports he cannot think about what medications he has been on in the past and continues to be irritable with this internal communications writer. He has been up a little more than he was yesterday, a little more interactive, getting himself things to eat and things of that nature, but still fairly isolative to his room and not engaging in the milieu. I reviewed with him that I had looked at much of his records as I could identify, and I did not see anytime where Abilify was used as his antipsychotic medication. He at least said that he would consider starting that and he would think about it. As he did the day before, he was essentially done with the conversation. Mental Status Exam MSE Comments: This is an obese, white male, with a hospital gown on, and no shirt, unkempt, with essentially no eye contact. No abnormal movements except for psychomotor retardation in general, but psychomotor agitation with engagement but less than yesterday. Uncooperative with exam in moderate but less distress. Speech was increased rate and volume. Mood described as depressed; affect less agitated. Thought process, linear. Thought content: patient endorsed suicidal ideation, there was no homicidal ideation endorsed. He endorsed hearing things, but no delusional content was noted. He did not appear to be attending to internal stimuli. Attention and concentration were impaired, and memory is unreliable, but none were formally tested. He is alert and oriented times three. Insight and judgment are impaired. Impulse control is impaired. Vitals/I&O/Wt Last Vital Signs Temp 97.7 F 01/21/20 06:00 Pulse 67 01/21/20 06:00 Resp 18 01/21/20 06:00 BP 111/74 01/21/20 06:00 Pulse Ox 99 01/21/20 06:00 Weight last 48 hrs Weight 105.233 kg Data NPU : 01/19/20 22:39 01/19/20 22:39 A&P Additional A&P Information (1) Suicidal ideation: (2) H/O heart valve replacement with bioprosthetic valve: (3) Diabetes: (4) Psychosis: (5) Substance abuse: This is a 50 year old, white male, with a history of addiction, psychosis, question of substance abuse, psychotic disorder versus organic psychotic disorder, who presents very agitated with a history of needing prn medication to manage him when he initially presents to the unit, who presents essentially wanting to be left alone and not open to a discussion about medication. RECOMMENDATION AND PLAN: Continue current medication. Continue to encourage a trial of Abilify 10 mg by mouth every morning Encourage individual, group, and milieu therapy. Continue q-15 minute checks for safety. Recommend sober living treatment at the highest level of care to which the patient is willing to commit. Involuntary Hold Information 96 Hour Hold: 96 Hour Involuntary Admission: Yes 96 Hour Hold Ending Date: 01/25/20 96 Hour Hold Ending Time: 21:55 Attestations NPU Medical Necessity Statement*: Inpatient hospitalization is medically necessary and the clinically appropriate intervention at this time. We will initiate medications and make changes as indicated. Likely length of stay 3-5 days. Coding Level of Care Code Acute Student Union Consultant for Janis Barakat
[2020-01-21 20:30] LABS: Glucose Point of Care 204 mg/dL (70-110)
[2020-01-21] MEDS: trazodone 50 mg Tablet PO (21:36)
[2020-01-21 22:00] VITALS: BP 122/82; PULSE 71; RESP 18; TEMP 36.6; O2SAT 97
[2020-01-22 06:00] VITALS: BP 105/75; PULSE 72; RESP 18; TEMP 36.7; O2SAT 97
[2020-01-22 06:48] LABS: Glucose Point of Care 236 mg/dL (70-110)
--- NOTE | 2020-01-22 07:58 | PM.PN ---
Subjective Subjective: Interval history: Patient awake eating breakfast. Discussion with RN and NPU, patient has been compliant with insulin, no concerns at this time. Vitals/I&O/Wt Last Vital Signs Temp 98.1 F 01/22/20 06:00 Pulse 72 01/22/20 06:00 Resp 18 01/22/20 06:00 BP 105/75 01/22/20 06:00 Pulse Ox 97 01/22/20 06:00 Weight last 48 hrs Weight 105.233 kg Physical Exam Narrative: EXAM NARRATIVE: Patient awake and ambulating, appears in no acute distress. Further physical exam deferred and will continue to follow along peripherally for insulin adjustment Data : 01/19/20 22:39 01/19/20 22:39 A&P Assessment and plan (1) Diabetes: Known diabetes mellitus, noncompliance with medications Hemoglobin A1c 11.4 Increase Lantus to 30 units daily, continue with sliding scale insulin Carbohydrate consistent diet Will continue to follow along peripherally and adjust insulin as indicated Status: Acute (2) H/O heart valve replacement with bioprosthetic valve: Secondary to bacterial endocarditis status post aortic and mitral valve replacement by cardiothoracic surgeon at [facility] in [facility] Status: Acute Additional A&P Information Suicidal ideation: Per primary attending Attestations Medical Necessity Statement*: Per primary attending. Coding Level of Care Code Acute Quantitative Consultant for Janis Barakat Diagnoses Diabetes E11.9 H/O heart valve replacement with bioprosthetic valve Z95.3
[2020-01-22] MEDS: insulin glargine 100 units/1 mL 30 UNIT SUBCUT (09:27)
[2020-01-22] MEDS: ARIPiprazole 10 mg Tablet PO (09:27)
--- NOTE | 2020-01-22 10:22 | P.PN_ITS ---
Subjective NPU Subjective: Interval history: Shree presented today open to a trial of Abilify after a discussion of the risks, benefits, and alternatives of the medication. He understood and agreed to proceed as is documented in this note. After he and I spoke yesterday, he had a fairly rough day having the voices begin to crescendo and he had a trial of both Zyprexa prn and Haldol prn. He reported that at least the Zyprexa was not helpful, did not really comment on the Haldol, but reported an openness to try something saying that if something does not happen to get the voices to go away, he does not know what he is going to do. He reports he is feeling a little better from a standpoint of being able to get some sleep, as being homeless is tough to get sleep and feel safe at the same time, but he is still struggling with psychosis. Mental Status Exam MSE Comments: This is an obese, white male, with a hospital scrubs on with adequate grooming and eye contact. No abnormal movements except for mild psychomotor retardation. Cooperative with exam less distress. Speech was more normal rate and volume. Mood described as better; affect calmer. Thought process, linear. Thought content: patient denies suicidal or homicidal ideation. He endorsed voices were less, but no delusional content was noted. He did not appear to be attending to internal stimuli. Attention and concentration were imp roved, and memory appeared more reliable, but none were formally tested. He is alert and oriented times three. Insight and judgment are improving. Impulse control is improving. Vitals/I&O/Wt Last Vital Signs Temp 98.1 F 01/22/20 06:00 Pulse 72 01/22/20 06:00 Resp 18 01/22/20 06:00 BP 105/75 01/22/20 06:00 Pulse Ox 97 01/22/20 06:00 Weight last 48 hrs Weight 105.233 kg Data NPU : 01/19/20 22:39 01/19/20 22:39 A&P Additional A&P Information (1) Suicidal ideation: (2) H/O heart valve replacement with bioprosthetic valve: (3) Diabetes: (4) Psychosis: (5) Substance abuse: This is a 50 year old, white male, with a history of addiction, psychosis, question of substance abuse, psychotic disorder versus organic psychotic disorder, who presents very agitated with a history of needing prn medication to manage him when he initially presents to the unit, who presents essentially wanting to be left alone and not open to a discussion about medication. RECOMMENDATION AND PLAN: Continue current medication. Increase Abilify to 15 mg by mouth every morning. Encourage individual, group, and milieu therapy. Continue q-15 minute checks for safety. Recommend sober living treatment at the highest level of care to which the patient is willing to commit. Involuntary Hold Information 96 Hour Hold: 96 Hour Involuntary Admission: Yes 96 Hour Hold Ending Date: 01/25/20 96 Hour Hold Ending Time: 21:55 Attestations NPU Medical Necessity Statement*: Inpatient hospitalization is medically necessary and the clinically appropriate intervention at this time. We will initiate medications and make changes as indicated. Likely length of stay 2-4 days. Coding Level of Care Code Acute Brick Veneer Maker for Janis Barakat
[2020-01-22 11:31] LABS: Glucose Point of Care 281 mg/dL (70-110)
[2020-01-22 14:00] VITALS: BP 114/79; PULSE 101; RESP 18; TEMP 36.2; O2SAT 98
[2020-01-22 16:34] LABS: Glucose Point of Care 254 mg/dL (70-110)
[2020-01-22 19:23] LABS: Glucose Point of Care 253 mg/dL (70-110)
[2020-01-22 20:43] VITALS: BP 139/84; PULSE 84; RESP 16; TEMP 35.9; O2SAT 96
[2020-01-22] MEDS: trazodone 50 mg Tablet PO (20:43)
[2020-01-22] MEDS: hyDROXYzine 25 mg Capsule 50 MG PO (20:43)
--- NOTE | 2020-01-22 20:43 | PC.NURSE ---
pt given 4 units novolog as per HS sliding scale, pt also requested sleep and anxiety meds. trazodone and vistaril given.
[2020-01-23 06:00] VITALS: BP 131/83; PULSE 69; RESP 19; TEMP 36.2; O2SAT 98
[2020-01-23] MEDS: ARIPiprazole 30 mg Tablet 15 MG PO (09:29)
[2020-01-23] MEDS: insulin glargine 100 units/1 mL 30 UNIT SUBCUT (09:30)
[2020-01-23] MEDS: acetaminophen 325 mg Tablet 650 MG PO (09:37)
[2020-01-23 11:34] LABS: Glucose Point of Care 276 mg/dL (70-110)
[2020-01-23] MEDS: OLANZapine 5 mg ODT PO (13:03)
--- NOTE | 2020-01-23 13:03 | PC.NURSE ---
PRN ZYPREXA ZYDIS ZYPREXA ZYDIS 5MG PO PER PATIENT C/O ANXIETY/AGITATION. WILL CONTINUE TO MONITOR FOR MEDICATION EFFECTIVENESS.
[2020-01-23 14:00] VITALS: BP 139/83; PULSE 89; RESP 18; TEMP 36.8; O2SAT 97
--- NOTE | 2020-01-23 14:00 | PC.NURSE ---
PRN ZYPREXA ZYDIS FOLLOW UP MEDICATION EFFECTIVE. NO FURTHER C/O ANXIETY/AGITATION.
[2020-01-23] MEDS: propranolol 20 mg Tablet PO ×2 (15:43→20:01)
--- NOTE | 2020-01-23 16:28 | P.PN_ITS ---
Subjective NPU Subjective: Interval history: Shree presents today reporting that he is feeling a little better. He is handling the increase in the Abilify fine, and he was reporting some anxiety. We discussed the risks, benefits, and alternatives of starting Propranolol 20 mg po tid, and seeing if that helps. We discussed the fact that sometimes people do have anxiety in relation to the Abilify, and we will monitor that, and he understood and agreed to proceed as is documented in this note. He continues to have hospitalist follow up, and has much better control of his glucose than initially, but the numbers are creeping up. We will identify with hospitalist if there are any changes that need to be made. Mental Status Exam MSE Comments: This is an obese, white male, with a hospital scrubs on with adequate grooming and eye contact. No abnormal movements except for mild psychomotor retardation. Cooperative with exam less distress. Speech was more normal rate and volume. Mood described as pretty good; affect calmer. Thought process, linear. Thought content: patient denies suicidal or homicidal ideation. He endorsed voices were less, but no delusional content was noted. He did not appear to be attending to internal stimuli. Attention and concentration were improved, and memory appeared more reliable, but none were formally tested. He is alert and oriented times three. Insight and judgment are improving. Impulse control is improving. Vitals/I&O/Wt Last Vital Signs Temp 98.2 F 01/23/20 14:00 Pulse 89 01/23/20 14:00 Resp 18 01/23/20 14:00 BP 139/83 01/23/20 14:00 Pulse Ox 97 01/23/20 14:00 Weight last 48 hrs Weight 105.233 kg Data NPU : 01/19/20 22:39 01/19/20 22:39 A&P Assessment and plan (1) Diabetes: Status: Acute Additional A&P Information (1) Suicidal ideation: (2) H/O heart valve replacement with bioprosthetic valve: (3) Diabetes: (4) Psychosis: (5) Substance abuse: This is a 50 year old, white male, with a history of addiction, psychosis, question of substance abuse, psychotic disorder versus organic psychotic disorder, who presents very agitated with a history of needing prn medication to manage him when he initially presents to the unit, who presents essentially wanting to be left alone and not open to a discussion about medication. Continue current medication. Encourage individual, group, and milieu therapy. Continue q-15 minute checks for safety. Recommend sober living treatment at the highest level of care to which the patient is willing to commit. Involuntary Hold Information 96 Hour Hold: 96 Hour Involuntary Admission: Yes 96 Hour Hold Ending Date: 01/25/20 96 Hour Hold Ending Time: 21:55 Attestations NPU Medical Necessity Statement*: Inpatient hospitalization is medically necessary and the clinically appropriate intervention at this time. We will initiate medications and make changes as indicated. Likely length of stay 1-3 days. Coding Level of Care Code Acute Business Relations Manager for [employer] Diagnoses Diabetes E11.9
[2020-01-23 16:43] LABS: Glucose Point of Care 242 mg/dL (70-110)
[2020-01-23] MEDS: trazodone 50 mg Tablet PO (20:04)
[2020-01-23] MEDS: hyDROXYzine 25 mg Capsule 50 MG PO (20:04)
--- NOTE | 2020-01-23 20:20 | PM.PN ---
Subjective Subjective: Interval history: Patient resting, therefore did not wake this morning at time of exam Discussed care with RN and no concerns noted for medical team. Vitals/I&O/Wt Last Vital Signs Temp 98.2 F 01/23/20 14:00 Pulse 89 01/23/20 14:00 Resp 18 01/23/20 14:00 BP 139/83 01/23/20 14:00 Pulse Ox 97 01/23/20 14:00 Weight last 48 hrs Weight 105.233 kg Physical Exam Narrative: EXAM NARRATIVE: Deferred Data : 01/19/20 22:39 01/19/20 22:39 A&P Assessment and plan (1) Diabetes: Known diabetes mellitus, noncompliance with medications Hemoglobin A1c 11.4 Continue Lantus to 30 units daily, continue with sliding scale insulin Carbohydrate consistent diet Will continue to follow along peripherally and adjust insulin as indicated Discussed with RN today about Medicaid application, patient will need insulin and glucommeter at time of discharge Status: Acute (2) H/O heart valve replacement with bioprosthetic valve: Secondary to bacterial endocarditis status post aortic and mitral valve replacement by cardiothoracic surgeon at [facility] in [facility] Status: Acute Additional A&P Information Suicidal ideation: Per primary attending Attestations Medical Necessity Statement*: per primary attending Coding Level of Care Code Acute Environmental Designer for Janis Barakat Diagnoses Diabetes E11.9 H/O heart valve replacement with bioprosthetic valve Z95.3
[2020-01-23 20:36] LABS: Glucose Point of Care 322 mg/dL (70-110)
--- NOTE | 2020-01-23 20:38 | PC.NURSE ---
pt given scheduled propranolol and 6 units of novolog per sliding scale. pt also given prn meds trazodone and vistaril per pt request.
[2020-01-23 20:57] VITALS: BP 106/75; PULSE 78; RESP 21; TEMP 37.1; O2SAT 96
[2020-01-24 06:00] VITALS: BP 118/78; PULSE 69; RESP 18; TEMP 36.7; O2SAT 97
[2020-01-24 06:48] LABS: Glucose Point of Care 226 mg/dL (70-110)
[2020-01-24] MEDS: propranolol 20 mg Tablet PO ×3 (08:07→20:20)
[2020-01-24] MEDS: ARIPiprazole 30 mg Tablet 15 MG PO (08:07)
[2020-01-24] MEDS: insulin glargine 100 units/1 mL 30 UNIT SUBCUT (08:07)
[2020-01-24 11:31] LABS: Glucose Point of Care 254 mg/dL (70-110)
--- NOTE | 2020-01-24 12:22 | P.PN_ITS ---
Subjective NPU Subjective: Interval history: Chan presents today endorsing that he is doing better and that the voices are very much improving. We had a long discussion about whether or not to increase the Geodon to 80 mg twice a day, or not. In the end, we agreed that we would talk in the morning as today roy only the second full day of being on the medication. So we agreed we would see how he feels, in the morning. We discussed the fact that he could still increase the medication after discharge, but wanting to make sure that he continues to note the benefit as he has been very concerned that was not going to happen, and he was going to be stuck with ongoing voices. We discussed the risks, benefits, and alternatives of these changes, as well as a possible discharge tomorrow, and he understood and agreed to proceed as is documented in this note. Mental Status Exam MSE Comments: This is an obese, white male, with hospital scrubs on, with adequate grooming and improved eye contact. No abnormal movement, except for resolving psychomotor retardation. Cooperative with exam in no acute distress. Speech was slightly decreased rate and volume but improving. Mood described as better; affect less subdued. Thought process, organized. Thought content: patient denied any suicidal or homicidal ideation; he is not spontaneously talking about his delusional content, and none was noted in our conversation today. Attention, concentration, and memory appeared intact but none were formally tested. Alert and oriented times three. Insight and judgment are improving. Vitals/I&O/Wt Last Vital Signs Temp 98.1 F 01/24/20 06:00 Pulse 85 01/24/20 06:00 Resp 18 01/24/20 06:00 BP 127/85 01/24/20 06:00 Pulse Ox 95 01/24/20 06:00 Data NPU : 01/19/20 22:39 01/19/20 22:39 A&P Additional A&P Information (1) Diabetes: (2) H/O heart valve replacement with bioprosthetic valve: (3) Diabetes: (4) Psychosis: (5) Substance abuse: (6) Suicidal ideation: This is a 50 year old, white male, with a history of addiction, psychosis, qu estion of substance abuse, psychotic disorder versus organic psychotic disorder, who presents very agitated with a history of needing prn medication to manage him when he initially presents to the unit, who presents essentially wanting to be left alone and not open to a discussion about medication. Continue current medication. Encourage individual, group, and milieu therapy. Continue q-15 minute checks for safety. Recommend sober living treatment at the highest level of care to which the patie nt is willing to commit. Involuntary Hold Information 96 Hour Hold: 96 Hour Involuntary Admission: Yes 96 Hour Hold Ending Date: 01/25/20 96 Hour Hold Ending Time: 21:55 Attestations NPU Medical Necessity Statement*: Inpatient hospitalization is medically necessary and the clinically appropriate intervention at this time. We will initiate medications and make changes as indicated. Likely length of stay 1-2 days. Likely discharge tomorrow. Coding Level of Care Code Acute Paper Bag Machine Operator for Janis Barakat
[2020-01-24 13:29] VITALS: BP 135/68; PULSE 81; RESP 18; TEMP 37.2; O2SAT 96
--- NOTE | 2020-01-24 13:38 | P.PN_ITS ---
Subjective Subjective: Interval history: Patient ambulating the halls this morning. Discussed care with RN at nurses station, no concerns at this time. Discussed that we will need to continue to follow-up to ensure that patient has insulin availability and glucometer at time of discharge Vitals/I&O/Wt Last Vital Signs Temp 98.9 F 01/24/20 13:29 Pulse 81 01/24/20 13:29 Resp 18 01/24/20 13:29 BP 135/68 01/24/20 13:29 Pulse Ox 96 01/24/20 13:29 Physical Exam Narrative: EXAM NARRATIVE: Patient appears to be in no acute distress Ambulating the halls with no difficulty Further physical exam deferred Data : 01/19/20 22:39 01/19/20 22:39 A&P Assessment and plan (1) Diabetes: Known diabetes mellitus, noncompliance with medications Hemoglobin A1c 11.4 Continue Lantus to 35 units daily, continue with sliding scale insulin Carbohydrate consistent diet Will continue to follow along peripherally and adjust insulin as indicated Continue to arrange resources on discharge, patient will need insulin and glucommeter at time of discharge Status: Acute (2) H/O heart valve replacement with bioprosthetic valve: Secondary to bacterial endocarditis status post aortic and mitral valve replacement by cardiothoracic surgeon at [facility] in [facility] Status: Acute Additional A&P Information Suicidal ideation: Per primary attending Attestations Medical Necessity Statement*: per primary Coding Level of Care Code Acute X Ray Equipment Mechanic for Janis Barakat Diagnoses Diabetes E11.9 H/O heart valve replacement with bioprosthetic valve Z95.3
[2020-01-24 16:35] LABS: Glucose Point of Care 198 mg/dL (70-110)
[2020-01-24 19:45] LABS: Glucose Point of Care 261 mg/dL (70-110)
[2020-01-24] MEDS: trazodone 50 mg Tablet PO (20:20)
[2020-01-24] MEDS: hyDROXYzine 25 mg Capsule 50 MG PO (20:20)
[2020-01-24 21:14] VITALS: BP 99/67; PULSE 69; RESP 18; TEMP 36.8; O2SAT 95
--- NOTE | 2020-01-24 21:23 | PC.NURSE ---
pt given scheduled inderal and novolog per ordered sliding scale, pt also given prn sleep and anxiety med per request.
--- NOTE | 2020-01-25 05:52 | P.DS_ITS ---
Diagnoses at Discharge Discharge Diagnosis (1) Diabetes: Status: Acute (2) H/O heart valve replacement with bioprosthetic valve: Status: Acute (3) Schizophrenia: Status: Acute (4) Substance abuse: Status: Acute Reason for Visit Reason for Visit: mhe Brief History: History of Present Illness Shree Hickman is a 50 year old male who presented to the emergency department reporting that he was at his wits end and having suicidal thoughts with a plan. He stated he had a bulkhead carpenter knife and was going to cut himself with a bulkhead carpenter knife to kill himself with a history of psychiatric admissions and treatment in the past. He endorsed depression and suicidal ideation. He said he had a bulkhead carpenter knife, but nothing was found in his belongings. He was admitted to the neuropsychiatric unit for definitive treatment of those issues. When he presented to the unit, he was a poor historian, very distraught and unable to give a beneficial history for his situation. Of note, he suffers from diabetes and his blood sugars when he first made it to the unit and when he was in the e mergency room was in the 400 range. His hemoglobin A1c was 11.4. He has a reported history of some valve replacements and given his elevated white count and uncontrolled diabetes a hospitalist consult was initiated. All he was able to really say during the interview, was that he feels horrible, that his life is not worth living, and he does not know what he is going to do if something does not change. He acknowledged that he had not been managing his blood sugars recently. He acknowledged that he had been not adherent to any medication and was unable to give a history of medications that he in fact had taken or had been successful and said he did not want to talk anymore. During the interview though, he did identify that he was last in [facility] inpatient sometime in 2019 and we reviewed that note. He agreed that it was an accurate representation of his history and an excerpt of that is included below. Per last [facility] IP psychiatric eval: History of Present Illness Date of Service: October 29, 2018 Chief Complaint: Reported Homicidal ideation HPI: Shree Hickman is a 48-year-old man who was readmitted through the emergency room on a 96 hour hold for homicidal ideation towards his father or anyone else. Affidavits are reviewed on the chart indicated that the patient was reporting wanting to kill people/go down the street shooting people. He also reported that he would take the nursing staff hostage if he was admitted against as well. In the emergency room alcohol was negative, and he refused a urine drug screen. Patient was agitated and given Haldol 5 mg. He also was reporting acute chest pain with EKG/troponin unremarkable ?2. Blood sugars were mildly elevated from 154 through 198 over the interval, and hospitalist was consulted for general medical management. The patient was subsequently admitted to the neuropsychiatric unit for further psychiatric evaluation and stabilization. Today, the patient denied any further homicidal ideation or any suicidal ideation or hallucinations to nursing staff. However, he became increasingly agitated over the course of the morning yelling and screaming in his room and received a B-52 for agitation. The patient is currently sedated and a poor historian due to irritability and apparent intellectual disability. The patient refused interview and physical exam by this provider. When this provider approached him in bed, he did answer a couple of questions briefly stating that he has been feeling like wanting to hurt everybody for unknown reasons ( I don't know. ). Reports that yesterday I didn't feel good. Just had a bad day. Lost everything. He reports that he is now homeless. He reports feeling depressed and irritable but denies overt suicidal thoughts. He denies that he uses any drugs/alcohol use nor that he has ever taken any psychiatric medications previously. He otherwise refuses to answer any other questions for this provider. Past psychiatric history: Per records- He has a history of recent NPU admission from October 14-2018 with discharge diagnosis of delirium secondary to hyperglycemia/methamphetamine intoxication resolved/homicidal ideation. Last discharge medications included Remeron 30 mg daily at bedtime and Minipress 2 mg daily at bedtime, but the patient does not answer as to whether he took these medications after discharge. Patient reports other prior psychiatric admissions to a hospital in [place]. He cannot recall any other past medication names at this time but reported prior medication trials were unhelpful. Otherwise unable to obtain at this time. Family history: Unknown Past medical history: Insulin-dependent diabetes, hypertension. Otherwise unable to obtain at this time. Social history: He denies using any drugs or alcohol but drug screen was positi ve for cannabis/methamphetamine as during prior admissions and there is also some mention of history of IV drug abuse in the chart. Otherwise unable to obtain at this time. Per records- the patient had recently been living in [place] and reported family in the [place] area including a his son and father. Review of the [email or web address] on him list of 3 pages of criminal charges dating back to 2004. Those listings are being reviewed. So far they have been all nonviolent crimes such as burglary, resisting arrest, running away from her arrest, drug possession, and creating a nuisance. Meds NPU Home Medications Medication Instructions Recorded Confirmed Last Taken Type No Known Home Medications 12/17/19 12/25/19 Unknown History Allergies Allergy/AdvReac Type Severity Reaction Status Date / Time No Known Allergies Allergy Verified 12/25/19 10:14 PFSH NPU PFSH: Medical History Bowel obstruction CAD (coronary artery disease) Diabetes Hepatitis C History of bacterial endocarditis Hypertension Surgical History History of aortic valve replacement with bioprosthetic valve History of heart valve replacement History of mitral valve replacement with bioprosthetic valve Social History Housing: Homeless Hospital Course Hospital Course The patient presented to the emergency room stating he was at his wit?s end and having suicidal thoughts. He likely had delusion that he had a bulkhead carpenter knife that was ultimately not found in his belongings. He could not identify what was making things get worse, but he does have a history of psychiatric issues. He endorsed depression and suicidality. He was admitted to the neuropsychiatric unit for definitive treatment of those issues. On the unit, he very slowly acclimated to the individual, group, and milieu therapies provided. He was noted to have a UDS that was positive for marijuana only. But he was clearly struggling with psychosis, hearing voices, and was a very poor historian, initially. Ultimately, after a few days, he was open to a trial of medication and was started on Abilify, which was titrated to 15 mg po qam. He may need to increase that to 20 mg, at some point, but at this point we agreed to leave it at 15 mg. He came in with uncontrolled diabetes, with numbers in the 400?s, but those numbers decreased to the high 100?s to mid 200?s. There were initial c oncerns about him possibly crashing, if he did not have access to food or something, when he left, but the likelihood is that he is going to be in a controlled environment, at least for a brief period of time. So we agreed it was a good time for him to actually get things under control. He was also started on Propranolol, for anxiety, and tolerated the medication well and showed significant improvement. During the hospitalization, the patient had routine laboratory studies which were within normal limits, except for a few outliers. Additionally, the patient had a general medical evaluation which was within normal limits and revealed no new acute processes. Discharge Summary At the time of discharge the patient denied all lethality, was absent psychosis, and mood and anxiety were well managed. The patient endorsed a plan to avoid all drugs of abuse and to follow-up with outpatient services, as recommended. The patient was evaluated and deemed to be absent credible lethality, and had achieved the maximum benefit from an inpatient hospitalization, and so he was discharged. Involuntary Hold Information 96 Hour Hold: 96 Hour Involuntary Admission: Yes 96 Hour Hold Ending Date: 01/25/20 96 Hour Hold Ending Time: 21:55 Mental Status Exam MSE Comments: This is an obese, white male, with hospital scrubs on, with adequate grooming and improved eye contact. No abnormal movement, except for resolving psychomotor retardation. Cooperative with exam in no acute distress. Speech was slightly decreased rate and volume but improving. Mood described as pretty good; affect brighter. Thought process, organized. Thought content: patient denied any suicidal or homicidal ideation; he is not spontaneously talking about his delusional content, and none was noted in our conversation today. Attention, concentration, and memory appeared intact but none were formally tested. Alert and oriented times three. Insight and judgment are improving. Discharge Data Data Completed and Pending: Labs from last 24 hours 01/24/20 01/24/20 01/24/20 19:43 16:32 11:29 POC Glucose 261 198 254 01/24/20 06:45 POC Glucose 226 Vitals: Last Vital Signs Temp 98.2 F 01/24/20 21:14 Pulse 69 01/24/20 21:14 Resp 18 01/24/20 21:14 BP 99/67 01/24/20 21:14 Pulse Ox 95 08/25/20 21:14 Discharge Plan Discharge Patient Disposition: Home Condition: Stable Prescriptions: New Lantus Solostar U-100 Insulin 100 unit/mL (3 mL) insulin pen 35 unit SUBCUT DAILY 30 Days Qty: 15 RF: 0 trazodone 50 mg Tablet 50 mg PO BEDTIME PRN (Reason: Sleep) 30 Days Qty: 30 RF: 1 propranolol 20 mg Tablet 20 mg PO TID 30 Days Qty: 90 RF: 1 hydroxyzine pamoate 25 mg Capsule 50 mg PO Q6H PRN (Reason: Anxiety) 30 Days Qty: 180 RF: 1 aripiprazole 30 mg Tablet 15 mg PO DAILY 30 Days Qty: 30 RF: 1 Discharge Orders: Discharge Order (Routine); Ordered 01/25/20 Ordered By: Sampson Domingo Other Ambulatory Orders: DME: Miscellaneous (Order) Location: None Selected Ordered By: Ania Braxton Referrals: [facility] [Other] (this is a possible resource where you can receive both medical care and psychiatric care upon your release from skilled nursing. You must get follow-up care. ) Discharge Diet: Regular Discharge Activity: Resume usual activity Patient Instructions: Propranolol (By mouth), Trazodone (By mouth), Hydroxyzine Hydrochloride (By mouth), Aripiprazole (By mouth), Insulin Glargine (Injection), Schizophrenia (DC) Activity Restrictions/Additional Instructions: You will need to go to [facility] [address] [place] [address] , and see Danita Coelho, your p.o. Your paperwork will need to be provided to her. [phone] fax. Danita Coelho stated that the skilled nursing will provide a medical provider to provide continuity of care. You will need to have an appointment with a doctor upon release from the skilled nursing. Make sure this happens so that your continuity of care continues. Discharge Date/Time: 01/25/20 11:50 Discharge Attestations NPU Time Spent in Discharge Care*: greater than 30 min Specific Discharge Activities: Specific discharge activities: educating patient, discussing with correctional casework specialist/social workers/dc planners, documenting/other paperwork and evaluating patient/reviewing data Coding Level of Care Code Acute Dry Ice Machine Operator for Chg Fwd Diagnoses Diabetes E11.9 H/O heart valve replacement with bioprosthetic valve Z95.3 Schizophrenia F20.9 Substance abuse F19.10
[2020-01-25 06:00] VITALS: BP 127/85; PULSE 85; RESP 18; TEMP 36.7; O2SAT 95
[2020-01-25 06:57] LABS: Glucose Point of Care 233 mg/dL (70-110)
[2020-01-25 08:14] VITALS: BP 127/85; PULSE 85; RESP 18; TEMP 36.7; O2SAT 95
[2020-01-25] MEDS: ARIPiprazole 30 mg Tablet 15 MG PO (08:22)
[2020-01-25] MEDS: propranolol 20 mg Tablet PO (08:22)
[2020-01-25] MEDS: insulin glargine 100 units/1 mL 35 UNIT SUBCUT (09:22)
--- NOTE | 2020-01-25 18:13 | PM.PN ---
Subjective Subjective: Interval history: Patient seen prior to dc this morning. No concerns noted. Discussed importance of insulin compliance, verbalizes understanding. Vitals/I&O/Wt Last Vital Signs Temp 98.1 F 01/25/20 08:14 Pulse 85 01/25/20 08:14 Resp 18 01/25/20 08:14 BP 127/85 01/25/20 08:14 Pulse Ox 95 01/25/20 08:14 Physical Exam Const: COMMON NORMALS: patient oriented x3 and alert ORIENTATION/CONSCIOUSNESS: Yes awake, Yes oriented to person, Yes oriented to place and Yes oriented to time OTHER: Anxious yet cooperative HENMT: COMMON NORMALS: normocephalic and atraumatic HEAD & SCALP: normocephalic and atraumatic Eye: COMMON NORMALS: Equal, round and reactive pupils present PUPIL: Yes Equal, round and reactive pupils present Neck/C-Spine: COMMON NORMALS: supple GENERAL: Yes normal visual inspection Resp: COMMON NORMALS: normal respiratory effort and clear to auscultation bilaterally EFFORT & INSPECTION: Yes able to speak in complete sentences AUSCULTATION: clear to auscultation bilaterally, no rhonchi and no wheezes Cardio: COMMON NORMALS: regular rate and regular rhythm RATE: regular rate RHYTHM: regular rhythm OTHER: Prior sternotomy incision without any surrounding erythema, well-healed GI: INSPECTION: No abdominal distension Extremity: COMMON NORMALS: no clubbing, cyanosis or edema Neuro: COMMON NORMALS: patient oriented x3, CN's II-XII intact bilaterally, moves all extremities and no focal motor deficits SENSORIUM/ORIENTATION: Yes alert, Yes oriented to person, Yes oriented to place and Yes oriented to time SPEECH: speech normal Psych: COMMON NORMALS: cooperative Skin: COMMON NORMALS: no rashes or lesions noted GENERAL SKIN EXAM: no rashes or lesions noted Data : 01/19/20 22:39 01/19/20 22:39 A&P Assessment and plan (1) Diabetes: Known diabetes mellitus, noncompliance with medications Hemoglobin A1c 11.4 Continue Lantus to 35 units daily, continue with sliding scale insulin Carbohydrate consistent diet Will continue to follow along peripherally and adjust insulin as indicated Continue to arrange resources on discharge, patient will need insulin and glucommeter at time of discharge Discharge with Lantus today Status: Acute (2) H/O heart valve replacement with bioprosthetic valve: Secondary to bacterial endocarditis status post aortic and mitral valve replacement by cardiothoracic surgeon at [facility] in [facility] Status: Acute Additional A&P Information Suicidal ideation: Per primary attending Attestations Medical Necessity Statement*: Discharge today Coding Level of Care Code Acute Concrete Pointer for Janis Barakat Diagnoses Diabetes E11.9 H/O heart valve replacement with bioprosthetic valve Z95.3
== END 2020-01-25 11:50 | disposition home or self-care (01) | DRG 885 ==
LOC: ER 22:13 → NP 23:23
PROVIDERS: Emergency Medicine; Family Medicine; Admitting Provider Psychiatry & Neurology Psychiatry; Visit Provider Psychiatry & Neurology Psychiatry
DX: F20.9 Schizophrenia, unspecified (principal); R45.851 Suicidal ideations; Z95.3 Presence of xenogenic heart valve; E11.65 Type 2 diabetes mellitus with hyperglycemia; Z59.0 Homelessness; Z91.120 Patient's intentional underdosing of medication regimen due to financial hardship; I25.10 Atherosclerotic heart disease of native coronary artery without angina pectoris; Z86.19 Personal history of other infectious and parasitic diseases; I10 Essential (primary) hypertension; F41.9 Anxiety disorder, unspecified; F15.10 Other stimulant abuse, uncomplicated; F12.10 Cannabis abuse, uncomplicated
CPT/HCPCS: 12345; 36416; 80053; 80306; 80307; 82962; 83036; 85025; 96372; 99284; J1200; J1630; J1815 ×2; J2060

== ENCOUNTER 2020-03-19 17:43 | Inpatient (IN) | payer MEDICAID, SELFPAY ==
[2020-03-19 18:11] VITALS: PULSE 121; RESP 18; TEMP 37; O2SAT 99; BMI 36.5
--- NOTE | 2020-03-19 18:22 | W.ED.GENADLT ---
Documented by User: DINESH Daniels 03/19/20 22:28 HPI - General Adult General: Chief complaint: General Medical Stated complaint: ABSCESS ON ANKLE Time Seen by Provider: 03/19/20 18:21 History of Present Illness: HPI narrative: Patient is a 50-year-old male comes to the ED via EMS with an abscess on left ankle. Patient has a past medical history of substance abuse, diabetes and hypertension. He admits to shooting up drugs to left ankle preceding development of abscess. He noticed wound on left ankle approximately 7 days ago. He says it is continued to progress to become more painful. Pain is a 10 out of 10. He says he has purulent drainage from abscess and poked it with a knife a couple days ago to drain stuff out of it. Patient says he has not been taking his insulin and monitoring his blood sugars lately. Patient said that while in the ambulance they checked his blood sugar and it was over 500. Associated symptoms: Deny chest pain, dyspnea, headache(s), nausea, rash, palpitations or vomiting Review of Systems Const: Reports: chills; Denies: fever(s) or fatigue Eyes: Denies: change in vision or eye discomfort ENMT: Denies: throat pain, odynophagia, nasal discharge or nasal congestion Card: Denies: chest pain, palpitations, edema, swelling of feet/ankles, dyspnea on exertion or orthopnea Resp: Denies: dyspnea, productive cough or non-productive cough GI: Denies: abdominal pain, nausea, vomiting, diarrhea, constipation or hematochezia : Denies: flank pain, difficulty urinating, dysuria or hematuria Musc: Reports: extremity pain (Right ankle); Denies: neck pain, back pain or extremity swelling Skin/Breast: Reports: erythema (left ankle), skin tenderness (left ankle), skin swelling (left ankle) and new lesions (new lesion on left ankle); Denies: rash Neuro: Denies: headache(s), numbness in extremities or weakness in extremities PFS ED PFSH: Medical History Bowel obstruction CAD (coronary artery disease) Diabetes Hepatitis C History of bacterial endocarditis Hypertension Surgical History History of aortic valve replacement with bioprosthetic valve History of heart valve replacement History of mitral valve replacement with bioprosthetic valve Family History Other No significant family history Social History Housing: Homeless Physical Exam Const: COMMON NORMALS: patient oriented x3 and alert GENERAL APPEARANCE: cooperative and anxious HENMT: COMMON NORMALS: normocephalic HEAD & SCALP: normocephalic MOUTH: Normal oral and palatal mucosa present THROAT: posterior oropharynx normal and uvula midline Eye: COMMON NORMALS: Equal, round and reactive pupils present PUPIL: Yes Equal, round and reactive pupils present Neck/C-Spine: COMMON NORMALS: supple GENERAL: Yes normal visual inspection Resp: COMMON NORMALS: normal respiratory effort, No retractions, No use of accessory muscles and clear to auscultation bilaterally AUSCULTATION: clear to auscultation bilaterally Cardio: COMMON NORMALS: regular rhythm, S1 normal heart sound present, S2 normal heart sound present, No gallops present (Cardio), No clicks present (Cardio), No murmurs present (Cardio) and Peripheral pulses 2+ throughout RATE: tachycardic RHYTHM: regular rhythm HEART SOUNDS: S1 normal heart sound present and S2 normal heart sound present PERIPHERAL PULSES: Peripheral pulses 2+ throughout GI: COMMON NORMALS: Normal to inspection, nondistended, normoactive bowel sounds present, Soft to palpation, non-tender and no masses PALPATION: Yes Soft to palpation : COMMON NORMALS: Yes no CVA tenderness BLADDER/KIDNEY EXAM: Yes no CVA tenderness Back/Pelvis: COMMON NORMALS: no CVA tenderness Extremity: NARRATIVE EXTREMITY EXAM: Patient abscess on medial side of left ankle. Edema, warmth, tenderness and erythema of left ankle and foot. Small ulcerated wound in the center of abscess has purulent drainage. Neuro: COMMON NORMALS: patient oriented x3 and moves all extremities SENSORIUM/ORIENTATION: Yes alert Psych: ACTIVITY/MOTOR BEHAVIOR: Yes appropriate eye contact, Yes hyperactivity and Yes restless SPEECH: Yes loud MOOD & AFFECT: Yes anxious Skin: NARRATIVE SKIN EXAM: Patient abscess on medial side of left ankle. Edema, warmth, tenderness and erythema of left ankle and foot. Small ulcerated wound in the center of abscess has purulent drainage. Procedures Abscess I/D Site: lower extremity (left ankle) Side (if applicable): left Sedation/analgesia: none Local Anesthetic: lidocaine 2% Amount of anesthesia used (mL): 5 Technique: incised with #11 blade Amount of fluid expressed (mL): 6 Course Vital Signs: Vital signs: Vital Signs Temperature 98.6 F 03/19/20 18:11 Pulse Rate 121 H 03/19/20 18:11 Respiratory Rate 24 H 03/19/20 19:30 Pulse Oximetry 99 03/19/20 18:11 MDM - General Adult Lab Data: Attestation: I reviewed the patient's lab results. Labs: Lab Results 03/19/20 03/19/20 03/19/20 Range/Units 17:45 17:45 17:45 WBC 13.8 H (4.0-10.0) 10^3/ uL RBC 5.10 (4.1-5.3) 10^6/u L Hgb 15.1 (11.7-16.6) g/dL Hct 45.3 (42.0-52.0) % MCV 88.8 (80-94) fL MCH 29.6 (28.0-34.0) pg MCHC 33.3 (30.0-36.0) g/dL RDW 11.9 L (12.1-15.1) % Plt Count 286 (130-400) 10^3/c mm MPV 10.9 H (7.4-10.4) fL Neut % (Auto) 81.7 % Lymph % (Auto) 11.6 % Ashley % (Auto) 5.9 % Eos % (Auto) 0.1 % Baso % (Auto) 0.2 % Neut # (Auto) 11.30 H (1.8-7.7) 10^3/u L Lymph # (Auto) 1.6 (0.8-4.8) 10^3/u L Ashley # (Auto) 0.8 (0.2-0.9) 10^3/u L Eos # (Auto) 0.0 (0.0-0.8) 10^3/u L Baso # (Auto) 0.0 (0.0-0.1) 10^3/u L Nucleated RBC % (a uto) 0 % Nucleated RBCs # 0.0 /100WBC Specimen Type Sample Site ABG pH (7.35-7.45) ABG pCO2 (35-45) mmHg ABG pO2 (80.0-100.0) mmH g ABG HCO3 (22-26) mmol/L ABG O2 Saturation ABG Base Excess (-2.0-2.0) mmol/ L Evan Test A-a O2 Gradient (5-10) mmHg Hematocrit (42-52) % Hgb O2 Saturation (95-100) % Carboxyhemoglobin (0.4-20.1) %THgb Methemoglobin (0.4-1.5) % Total Hemoglobin (14-18) g/dL Ionized Calcium (1.1-1.4) mmol/L Internet Webmaster ID Sodium 128 L (136-145) mmol/L Potassium 3.9 (3.5-5.1) mmol/L Chloride 88 L (98-107) mmol/L Carbon Dioxide 19 L (22-29) mmol/L Anion Gap 24.9 H (5-19) BUN 18 (6-20) mg/dL Creatinine 0.8 (0.7-1.2) mg/dL GFR Calculation 103.2 (90-130) mL/min Glucose 450 H (65-115) mg/dL POC Glucose (70-110) mg/dL Calculated Osmolal ity 287 (285-295) mOsm/k g Calcium 9.3 (8.5-10.5) mg/dL Total Bilirubin 0.7 (0.15-1.2) mg/dL AST 9 (0-40) U/L ALT 10 (0-41) U/L Alkaline Phosphata se 115 (40-130) IU/L C-Reactive Protein 147.9 H (0.0-4.9) mg/L Total Protein 7.8 (6.6-8.7) g/dL Albumin 4.2 (3.5-5.2) g/dL Globulin 3.6 (1.3-4.6) g/dL Urine Color (Yellow) Urine Appearance (CLEAR) Urine pH (5-7) Ur Specific Gravit y (1.005-1.030) Urine Protein (Negative) Urine Glucose (UA) (Normal) Urine Ketones (Negative) Urine Blood (Negative) Urine Nitrate (Negative) Urine Bilirubin (Negative) Prot Sulfosalicyli c Acd (Negative) Urine Urobilinogen (Negative) mg/dL Ur Leukocyte Sarah ase (Negative) Serum Ketones Positive H (Negative) 03/19/20 03/19/20 03/19/20 Range/Units 20:00 20:06 20:20 WBC (4.0-10.0) 10^3/ uL RBC (4.1-5.3) 10^6/u L Hgb (11.7-16.6) g/dL Hct (42.0-52.0) % MCV (80-94) fL MCH (28.0-34.0) pg MCHC (30.0-36.0) g/dL RDW (12.1-15.1) % Plt Count (130-400) 10^3/c mm MPV (7.4-10.4) fL Neut % (Auto) % Lymph % (Auto) % Ashley % (Auto) % Eos % (Auto) % Baso % (Auto) % Neut # (Auto) (1.8-7.7) 10^3/u L Lymph # (Auto) (0.8-4.8) 10^3/u L Ashley # (Auto) (0.2-0.9) 10^3/u L Eos # (Auto) (0.0-0.8) 10^3/u L Baso # (Auto) (0.0-0.1) 10^3/u L Nucleated RBC % (a uto) % Nucleated RBCs # /100WBC Specimen Type Arterial Sample Site Radial, right ABG pH 7.59 H* (7.35-7.45) ABG pCO2 18.3 L* (35-45) mmHg ABG pO2 100.0 (80.0-100.0) mmH g ABG HCO3 17.3 L (22-26) mmol/L ABG O2 Saturation 97.4 ABG Base Excess -1.6 (-2.0-2.0) mmol/ L Evan Test Pos A-a O2 Gradient 3.2 L (5-10) mmHg Hematocrit 45.8 (42-52) % Hgb O2 Saturation 96.6 (95-100) % Carboxyhemoglobin 0.3 L (0.4-20.1) %THgb Methemoglobin 0.5 (0.4-1.5) % Total Hemoglobin 15.0 (14-18) g/dL Ionized Calcium 1.1 (1.1-1.4) mmol/L Internet Webmaster ID ellpe Sodium 127.0 L (136-145) mmol/L Potassium 4.1 (3.5-5.1) mmol/L Chloride (98-107) mmol/L Carbon Dioxide (22-29) mmol/L Anion Gap (5-19) BUN (6-20) mg/dL Creatinine (0.7-1.2) mg/dL GFR Calculation (90-130) mL/min Glucose 365.0 H (65-115) mg/dL POC Glucose 326 (70-110) mg/dL Calculated Osmolal ity (285-295) mOsm/k g Calcium (8.5-10.5) mg/dL Total Bilirubin (0.15-1.2) mg/dL AST (0-40) U/L ALT (0-41) U/L Alkaline Phosphata se (40-130) IU/L C-Reactive Protein (0.0-4.9) mg/L Total Protein (6.6-8.7) g/dL Albumin (3.5-5.2) g/dL Globulin (1.3-4.6) g/dL Urine Color Yellow (Yellow) Urine Appearance Clear (CLEAR) Urine pH 5.0 (5-7) Ur Specific Gravit y 1.015 (1.005-1.030) Urine Protein 1+ H (Negative) Urine Glucose (UA) 4+ H (Normal) Urine Ketones 3+ H (Negative) Urine Blood Neg (Negative) Urine Nitrate Negative (Negative) Urine Bilirubin Neg (Negative) Prot Sulfosalicyli c Acd Trace (Negative) Urine Urobilinogen Neg (Negative) mg/dL Ur Leukocyte Sarah ase Negative (Negative) Serum Ketones (Negative) Discharge Plan Discharge Prescriptions: No Action trazodone 50 mg Tablet 50 mg PO BEDTIME PRN (Reason: Sleep) 30 Days Qty: 30 RF: 1 propranolol 20 mg Tablet 20 mg PO TID 30 Days Qty: 90 RF: 1 hydroxyzine pamoate 25 mg Capsule 50 mg PO Q6H PRN (Reason: Anxiety) 30 Days Qty: 180 RF: 1 aripiprazole 30 mg Tablet 15 mg PO DAILY 30 Days Qty: 30 RF: 1 Coding Level of Care Code ED Team Facilitator for Chg Fwd Exam Comprehensive Documented by User: Jade White MD 03/19/20 22:45 HPI - General Adult General: Chief complaint: General Medical Stated complaint: ABSCESS ON ANKLE Time Seen by Provider: 03/19/20 18:21 PFSH ED PFSH: Medical History Bowel obstruction CAD (coronary artery disease) Diabetes Hepatitis C History of bacterial endocarditis Hypertension Surgical History History of aortic valve replacement with bioprosthetic valve History of heart valve replacement History of mitral valve replacement with bioprosthetic valve Family History Other No significant family history Social History Housing: Homeless Procedures Abscess I/D Side (if applicable): left Local Anesthetic: lidocaine 1% Technique: other (Incised with a 15 blade. I made 2 incisions on either side of the open area made earlier by DINESH Daniels. I tunneled through with the forceps and got some purulent material out and then placed a Ericka drain as a loop.) Irrigation: No Packing used?: ericka drain Complications: pain Course ED course: I am seeing this patient with DINESH Daniels. Mr. Hickman is homeless and is an IV drug user. He also is a insulin-dependent diabetic. He is noncompliant. He has had his aortic and mitral valves replaced due to endocarditis a few years ago. This was done at [facility]. I believe these are tissue valves. Today he comes in with a very large abscess on his left lower leg. This was I indeed in the ER with a large amount of pus. The whole leg is warm and swollen. He is tachycardic. His blood sugar was 450 and he had positive serum ketones but he is not acidotic. pH on ABG was actually alkalotic. His CO2 on his chemistry is 19. CRP is very high at 148. In the ED he was given a dose of vancomycin. He will be admitted for further management of his multiple issues. Vital Signs: Vital signs: Vital Signs Temperature 98.6 F 03/19/20 18:11 Pulse Rate 121 H 03/19/20 18:11 Respiratory Rate 24 H 03/19/20 19:30 Pulse Oximetry 99 03/19/20 18:11 [facility] - General Adult Lab Data: Labs: Lab Results 03/19/20 03/19/20 03/19/20 Range/Units 17:45 17:45 17:45 WBC 13.8 H (4.0-10.0) 10^3/ uL RBC 5.10 (4.1-5.3) 10^6/u L Hgb 15.1 (11.7-16.6) g/dL Hct 45.3 (42.0-52.0) % MCV 88.8 (80-94) fL MCH 29.6 (28.0-34.0) pg MCHC 33.3 (30.0-36.0) g/dL RDW 11.9 L (12.1-15.1) % Plt Count 286 (130-400) 10^3/c mm MPV 10.9 H (7.4-10.4) fL Neut % (Auto) 81.7 % Lymph % (Auto) 11.6 % Ashley % (Auto) 5.9 % Eos % (Auto) 0.1 % Baso % (Auto) 0.2 % Neut # (Auto) 11.30 H (1.8-7.7) 10^3/u L Lymph # (Auto) 1.6 (0.8-4.8) 10^3/u L Ashley # (Auto) 0.8 (0.2-0.9) 10^3/u L Eos # (Auto) 0.0 (0.0-0.8) 10^3/u L Baso # (Auto) 0.0 (0.0-0.1) 10^3/u L Nucleated RBC % (a uto) 0 % Nucleated RBCs # 0.0 /100WBC Specimen Type Sample Site ABG pH (7.35-7.45) ABG pCO2 (35-45) mmHg ABG pO2 (80.0-100.0) mmH g ABG HCO3 (22-26) mmol/L ABG O2 Saturation ABG Base Excess (-2.0-2.0) mmol/ L Evan Test A-a O2 Gradient (5-10) mmHg Hematocrit (42-52) % Hgb O2 Saturation (95-100) % Carboxyhemoglobin (0.4-20.1) %THgb Methemoglobin (0.4-1.5) % Total Hemoglobin (14-18) g/dL Ionized Calcium (1.1-1.4) mmol/L Internet Webmaster ID Sodium 128 L (136-145) mmol/L Potassium 3.9 (3.5-5.1) mmol/L Chloride 88 L (98-107) mmol/L Carbon Dioxide 19 L (22-29) mmol/L Anion Gap 24.9 H (5-19) BUN 18 (6-20) mg/dL Creatinine 0.8 (0.7-1.2) mg/dL GFR Calculation 103.2 (90-130) mL/min Glucose 450 H (65-115) mg/dL POC Glucose (70-110) mg/dL Calculated Osmolal ity 287 (285-295) mOsm/k g Calcium 9.3 (8.5-10.5) mg/dL Total Bilirubin 0.7 (0.15-1.2) mg/dL AST 9 (0-40) U/L ALT 10 (0-41) U/L Alkaline Phosphata se 115 (40-130) IU/L C-Reactive Protein 147.9 H (0.0-4.9) mg/L Total Protein 7.8 (6.6-8.7) g/dL Albumin 4.2 (3.5-5.2) g/dL Globulin 3.6 (1.3-4.6) g/dL Urine Color (Yellow) Urine Appearance (CLEAR) Urine pH (5-7) Ur Specific Gravit y (1.005-1.030) Urine Protein (Negative) Urine Glucose (UA) (Normal) Urine Ketones (Negative) Urine Blood (Negative) Urine Nitrate (Negative) Urine Bilirubin (Negative) Prot Sulfosalicyli c Acd (Negative) Urine Urobilinogen (Negative) mg/dL Ur Leukocyte Sarah ase (Negative) Serum Ketones Positive H (Negative) 03/19/20 03/19/20 03/19/20 Range/Units 20:00 20:06 20:20 WBC (4.0-10.0) 10^3/ uL RBC (4.1-5.3) 10^6/u L Hgb (11.7-16.6) g/dL Hct (42.0-52.0) % MCV (80-94) fL MCH (28.0-34.0) pg MCHC (30.0-36.0) g/dL RDW (12.1-15.1) % Plt Count (130-400) 10^3/c mm MPV (7.4-10.4) fL Neut % (Auto) % Lymph % (Auto) % Ashley % (Auto) % Eos % (Auto) % Baso % (Auto) % Neut # (Auto) (1.8-7.7) 10^3/u L Lymph # (Auto) (0.8-4.8) 10^3/u L Ashley # (Auto) (0.2-0.9) 10^3/u L Eos # (Auto) (0.0-0.8) 10^3/u L Baso # (Auto) (0.0-0.1) 10^3/u L Nucleated RBC % (a uto) % Nucleated RBCs # /100WBC Specimen Type Arterial Sample Site Radial, right ABG pH 7.59 H* (7.35-7.45) ABG pCO2 18.3 L* (35-45) mmHg ABG pO2 100.0 (80.0-100.0) mmH g ABG HCO3 17.3 L (22-26) mmol/L ABG O2 Saturation 97.4 ABG Base Excess -1.6 (-2.0-2.0) mmol/ L Evan Test Pos A-a O2 Gradient 3.2 L (5-10) mmHg Hematocrit 45.8 (42-52) % Hgb O2 Saturation 96.6 (95-100) % Carboxyhemoglobin 0.3 L (0.4-20.1) %THgb Methemoglobin 0.5 (0.4-1.5) % Total Hemoglobin 15.0 (14-18) g/dL Ionized Calcium 1.1 (1.1-1.4) mmol/L Internet Webmaster ID ellpe Sodium 127.0 L (136-145) mmol/L Potassium 4.1 (3.5-5.1) mmol/L Chloride (98-107) mmol/L Carbon Dioxide (22-29) mmol/L Anion Gap (5-19) BUN (6-20) mg/dL Creatinine (0.7-1.2) mg/dL GFR Calculation (90-130) mL/min Glucose 365.0 H (65-115) mg/dL POC Glucose 326 (70-110) mg/dL Calculated Osmolal ity (285-295) mOsm/k g Calcium (8.5-10.5) mg/dL Total Bilirubin (0.15-1.2) mg/dL AST (0-40) U/L ALT (0-41) U/L Alkaline Phosphata se (40-130) IU/L C-Reactive Protein (0.0-4.9) mg/L Total Protein (6.6-8.7) g/dL Albumin (3.5-5.2) g/dL Globulin (1.3-4.6) g/dL Urine Color Yellow (Yellow) Urine Appearance Clear (CLEAR) Urine pH 5.0 (5-7) Ur Specific Gravit y 1.015 (1.005-1.030) Urine Protein 1+ H (Negative) Urine Glucose (UA) 4+ H (Normal) Urine Ketones 3+ H (Negative) Urine Blood Neg (Negative) Urine Nitrate Negative (Negative) Urine Bilirubin Neg (Negative) Prot Sulfosalicyli c Acd Trace (Negative) Urine Urobilinogen Neg (Negative) mg/dL Ur Leukocyte Sarah ase Negative (Negative) Serum Ketones (Negative) Discharge Plan Discharge Prescriptions: No Action trazodone 50 mg Tablet 50 mg PO BEDTIME PRN (Reason: Sleep) 30 Days Qty: 30 RF: 1 propranolol 20 mg Tablet 20 mg PO TID 30 Days Qty: 90 RF: 1 hydroxyzine pamoate 25 mg Capsule 50 mg PO Q6H PRN (Reason: Anxiety) 30 Days Qty: 180 RF: 1 aripiprazole 30 mg Tablet 15 mg PO DAILY 30 Days Qty: 30 RF: 1 Coding Level of Care Code ED Team Facilitator for Chg Fwd Exam Comprehensive
[2020-03-19 18:31] LABS: Basophils % 0.2 %; Eosinophils % 0.1 %; Hematocrit 45.3 % (42.0-52.0); Hemoglobin 15.1 g/dL (11.7-16.6); Lymphocytes # 1.6 10^3/uL (0.8-4.8); Lymphocytes % 11.6 %; Mean Corpuscular HGB Conc 33.3 g/dL (30.0-36.0); Mean Corpuscular Hemoglobin 29.6 pg (28.0-34.0); Mean Corpuscular Volume 88.8 fL (80-94); Mean Platelet Volume 10.9 fL (7.4-10.4); Monocytes # 0.8 10^3/uL (0.2-0.9); Monocytes % 5.9 %; Neutrophils % 81.7 %; Nucleated Red Blood Cells % 0 %; Platelet Count 286 10^3/cmm (130-400); Red Cell Distribution Width 11.9 % (12.1-15.1); White Blood Count 13.8 10^3/uL (4.0-10.0)
--- NOTE | 2020-03-19 18:32 | XRR_ITS ---
PROCEDURE INFORMATION: Exam: XR Left Ankle Exam date and time: 03/19/2020 7:02 PM Age: 50 years old Clinical indication: Condition or disease; Other: Abscess TECHNIQUE: Imaging protocol: XR Left ankle. Views: 3 or more views. COMPARISON: No relevant prior studies available. FINDINGS: Bones/joints: Medial and lateral malleoli are normal. Ankle mortise is symmetrical. No fracture. Hindfoot is unremarkable. Tibiotalar joint and the subtalar joint appears normal. No periosteal response. No erosive changes. No focal osteopenia. No endosteal thinning. No evidence of osteomyelitis. Soft tissues: Extensive soft tissue swelling medially. XR/XR ankle LT min 3V* [id number] IMPRESSION: Extensive soft tissue swelling medially. Correlate with CT versus MRI
[2020-03-19 19:25] LABS: Alanine Aminotransferase 10 U/L (0-41); Albumin Level 4.2 g/dL (3.5-5.2); Alkaline Phosphatase 115 IU/L (40-130); Anion Gap 24.9 (5-19); Aspartate Amino Transferase 9 U/L (0-40); Blood Urea Nitrogen 18 mg/dL (6-20); C Reactive Protein 147.9 mg/L (0.0-4.9); Calcium 9.3 mg/dL (8.5-10.5); Carbon Dioxide 19 mmol/L (22-29); Chloride 88 mmol/L (98-107); Globulin 3.6 g/dL (1.3-4.6); Glomerular Filtration Rate 103.2 mL/min (90-130); Glucose 450 mg/dL (65-115); Osmolality Calculated 287 mOsm/kg (285-295); Potassium 3.9 mmol/L (3.5-5.1); Sodium 128 mmol/L (136-145); Total Bilirubin 0.7 mg/dL (0.15-1.2); Total Protein 7.8 g/dL (6.6-8.7)
[2020-03-19 19:30] VITALS: RESP 24
[2020-03-19] MEDS: morphine 4 mg/mL SDV 1 mL IVP (19:30)
[2020-03-19] MEDS: sodium chloride 0.9% 1,000 ML 999 ML IV (19:31)
[2020-03-19] MEDS: ondansetron 2 mg/ML SDV 2 mL 4 MG IVP (19:31)
[2020-03-19 20:00] LABS: Ketone (Acetest) Serum Positive (Negative)
[2020-03-19 20:11] LABS: Glucose Point of Care 326 mg/dL (70-110)
--- NOTE | 2020-03-19 20:14 | PC.NURSE ---
accucheck 325. 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
[2020-03-19 20:28] LABS: ABG PCO2 18.3 mmHg (35-45); ABG PH Result 7.59 (7.35-7.45); Alveolar-Arterial Oxygen Gradi 3.2 mmHg (5-10); Arterial Blood Gas Hematocrit 45.8 % (42-52); Base Excess ABG -1.6 mmol/L (-2.0-2.0); Blood Gas Allen Test Pos; Blood Gas Sample Site Radial, right; Blood Gas Sample Type Arterial; Carboxyhemoglobin 0.3 %THgb (0.4-20.1); HCO3 ABG 17.3 mmol/L (22-26); HGB O2 Sat 96.6 % (95-100); Ionized Calcium Level - ABG 1.1 mmol/L (1.1-1.4); Methemoglobin 0.5 % (0.4-1.5); Oxygen Saturation ABG 97.4; Potassium Level - ABG 4.1 mmol/L (3.5-5.0)
[2020-03-19] MEDS: insulin regular-human 100 units/1 mL 5 UNIT IVP (20:31)
[2020-03-19 20:49] LABS: Add Urine Microscopic? NO
--- NOTE | 2020-03-19 21:25 | P.HP_ITS ---
Providers/Chief Complaint Chief Complaint: ABSCESS ON ANKLE History of Present Illness Shree Hickman is a 50 year old male who has 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 Patient is stating t hat he is homeless, does not take any medications however he has been prescribed Lantus 15 units on previous admission, he has been using IV methamphetamine, he tried to administer methamphetamine through veins around left ankle about 2 weeks ago, since then left ankle has been painful, he has been noticing swelling which has gradually gotten worse, color of the skin has changed, now he is in excruciating pain which prompted his visit to the ER. Is denying vomiting, chest pain, fever. Diagnosis in the ER revealed DKA, sepsis, I have initiated vancomycin, Zosyn, sepsis fluid bolus, requested left ankle CT scan, massive amount of purulent drainage after incision and drainage in the ER. Review of Systems Const: Reports: chills, body aches and fatigue Eyes: Denies: change in vision ENMT: Denies: throat pain Card: Reports: edema and leg pain with exertion Resp: Denies: dyspnea GI: Denies: abdominal pain : Denies: flank pain Musc: Reports: extremity pain, extremity swelling, joint pain, joint swelling, joint redness, joint warmth, joint stiffness and limited range of motion Skin/Breast: Reports: skin tenderness, skin swelling, new lesions and lesions Neuro: Denies: headache(s) Psych: Reports: anxiety Endo: Denies: polyuria Jefferson/Lymph: Denies: easy bruising All/Imm: Denies: urticaria Medications/Allergies Home Medications Medication Instructions Recorded Confirmed Last Taken Type aripiprazole 15 mg PO DAILY 30 Days #30 tab 01/25/20 Unknown Rx hydroxyzine pamoate 50 mg PO Q6H PRN 30 Days #180 cap 01/25/20 Unknown Rx propranolol 20 mg PO TID 30 Days #90 tab 01/25/20 Unknown Rx trazodone 50 mg PO BEDTIME PRN 30 Days #30 01/25/20 Unknown Rx tab Allergies Allergy/AdvReac Type Severity Reaction Status Date / Time No Known Allergies Allergy Verified 03/19/20 18:22 PFSH Acute PFSH: Medical History Bowel obstruction CAD (coronary artery disease) Diabetes Hepatitis C History of bacterial endocarditis Hypertension Surgical History History of aortic valve replacement with bioprosthetic valve History of heart valve replacement History of mitral valve replacement with bioprosthetic valve Family History Other No significant family history Social History (Updated 03/19/20 @ 22:50 by Kelly Szymanski MD) Smoking and tobacco status: never smoked Alcohol intake: never Substance/Drug Use: current Substance/Drug use frequency: few times a month Substance/Drug use type: Methamphetamine Housing: Other Details: Homeless Vitals/I&O/Wt Last Vital Signs Temp 98.6 F 03/19/20 18:11 Pulse 121 H 03/19/20 18:11 Resp 24 H 03/19/20 19:30 Pulse Ox 99 03/19/20 18:11 Weight last 48 hrs Weight 108.862 kg Physical Exam Narrative: EXAM NARRATIVE: This is a young male Appears to be in distress because of left ankle pain Multiple skin tattoos noted Patient appears very anxious when I entered the room Does not appear dehydrated or fluid overloaded Saturating well on room air S1, S2 tachycardia Tachypneic, no active respiratory distress Abdomen soft distended bowel sound present Left ankle, limited range of motion, purulent drainage, turbid yellow discharge, massive amount of pus drained in the ER, purulent cellulitis with septic joint presentation Right ankle is normal Appears very anxious and irritable EOMI, PERRLA Neurologically no focal deficit Data : 03/19/20 17:45 03/19/20 17:45 A&P Assessment and plan (1) Cellulitis and abscess of left leg: Status: Acute (2) DKA (diabetic ketoacidoses): Status: Acute (3) Substance abuse: Status: Acute (4) Schizophrenia: Status: Acute (5) H/O heart valve replacement with bioprosthetic valve: Status: Acute (6) Diabetes: Status: Acute (7) Hypertension: Status: Acute (8) Sepsis: Status: Acute Additional A&P Information Sepsis secondary to purulent cellulitis left ankle Symptoms started after IV drug abuse 2 weeks ago Sepsis criteria met with fever, tachypnea, leukocytosis, I will start vancomycin, Zosyn and clindamycin for toxin suppression CT left ankle with contrast to rule out necrotizing fasciitis because excruciating pain, he is high risk for septic joint, Blood cultures, aspirate fr om the wound to be sent for culture DKA Start regular insulin Criteria met with ketones positive, low bicarb, high blood sugar ABG showing respiratory alkalosis which is a compensation of metabolic acidosis Aggressive fluid resuscitation Check A1c level Patient does not use any medications, he is homeless, he struggling with IV drug abuse 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 DVT prophylaxis I would use SCDs for now in case he would require joint aspiration or further drainage of his purulent cellulitis of left ankle Attestations Medical Necessity Statement*: Anticipating stay in the hospital cross more than 2 midnights currently needing management for purulent cellulitis, DKA and sepsis Time Spent in Patient Care: (>than 50% of time spent in counselling and/or direct pt care on unit) . 50mins Coding Level of Care Code Acute Business Systems Analyst for [facility] Fwd Diagnoses Cellulitis and abscess of left leg L03.116; L02.416 DKA (diabetic ketoacidoses) E11.10 Substance abuse F19.10 Schizophrenia F20.9 H/O heart valve replacement with bioprosthetic valve Z95.3 Diabetes E11.9 Hypertension I10 Sepsis A41.9
[2020-03-19 21:43] LABS: Glucose Urine UA 4+ (Normal); Protein Urine 1+ (Negative); Specific Gravity, Urine 1.015 (1.005-1.030); Urine Appearance Clear (CLEAR); Urine Color Yellow (Yellow)
[2020-03-19 21:44] LABS: Bilirubin Urine Neg (Negative); Blood Urine Neg (Negative); Ketones Urine 3+ (Negative); Nitrate Urine Negative (Negative); Sulfosalicylic Acid Urine Trace (Negative); Urobilinogen Urine Neg (Negative)
[2020-03-19 21:45] LABS: Leukocyte Esterase Urine Negative (Negative)
[2020-03-19 22:30] VITALS: RESP 24
[2020-03-19] MEDS: HYDROmorphone 1 mg/mL INJ 1 mL 0.5 MG IVP (22:30)
--- NOTE | 2020-03-19 22:40 | CTR_ITS ---
PROCEDURE INFORMATION: Exam: CT Left Lower Extremity With Contrast, Ankle Exam date and time: 03/19/2020 11:16 PM Age: 50 years old Clinical indication: Swelling, leg or foot; Patient HX: PT states that he injected drugs into his left ankle about a week ago. Swelling, redness, and pain; Additional info: Septic joint TECHNIQUE: Imaging protocol: CT of the Left lower extremity with intravenous contrast was performed. Exam focused on the ankle. Radiation optimization: All CT scans at this facility use at least one of these dose optimization techniques: automated exposure control; mA and/or kV adjustment per patient size (includes targeted exams where dose is matched to clinical indication); or iterative reconstruction. Contrast material: VISI; Contrast volume: 95 ml; Contrast route: INTRAVENOUS (IV); COMPARISON: CR XR ankle LT min 3V* [id number] 03/19/2020 6:39 PM RADIATION DOSE METRICS: Total DLP (mGy-cm): 161.51 FINDINGS: Bones/joints: Normal. No acute fracture or dislocation. Soft tissues: Soft tissue swelling is present medially at the ankle level. Overlying bandage is seen. No radiopaque foreign body is seen. No air is present in the soft tissues. No discrete abscess is identified. CT/CT ankle LT w con [id number] IMPRESSION: Cellulitis is present in the medial aspect of the ankle joint. Negative for abscess, air in the soft tissues, foreign body or osteomyelitis. Radiation Dose CTDIVOL = (mGy): DLP = 161.51 (mGy-cm)
[2020-03-19] MEDS: iohexol 300 mg/mL 100 mL Btl IV (23:16)
[2020-03-19 23:21] VITALS: BP 115/58; PULSE 93; RESP 16; O2SAT 96
[2020-03-19 23:45] LABS: SARS Covid-2 Antigen Negative (Negative)
--- NOTE | 2020-03-19 23:55 | PC.NURSE ---
during pt requesting food since he hasn't eaten in 3 days. PERSONAL PROTECTION SPECIALIST notified. OK to eat
[2020-03-20] VITALS (12 sets, daily range): BP systolic 106–116; BP diastolic 52–84; PULSE 75–88; RESP 16–24; TEMP 36.4–36.7; O2SAT 96–100
[2020-03-20 01:25] LABS: Anion Gap 16.2 (5-19); Blood Urea Nitrogen 18 mg/dL (6-20); Calcium 8.8 mg/dL (8.5-10.5); Carbon Dioxide 22 mmol/L (22-29); Chloride 94 mmol/L (98-107); Glomerular Filtration Rate 79.8 mL/min (90-130); Glucose 435 mg/dL (65-115); Osmolality Calculated 287 mOsm/kg (285-295); Potassium 4.2 mmol/L (3.5-5.1); Sodium 128 mmol/L (136-145)
[2020-03-20 01:37] LABS: Glucose Point of Care 421 mg/dL (70-110)
[2020-03-20] MEDS: sodium chloride 0.9% 1,000 ML 999 ML IV ×2 (03:31→06:03)
[2020-03-20] MEDS: insulin glargine 100 units/1 mL 20 UNIT SUBCUT (04:51)
[2020-03-20 05:01] LABS: Glucose Point of Care 334 mg/dL (70-110)
--- NOTE | 2020-03-20 05:26 | PC.NURSE ---
agree with this assessment
[2020-03-20 06:45] LABS: Glucose Point of Care 291 mg/dL (70-110)
[2020-03-20 06:57] LABS: Estmated Average Glucose 278; Hemoglobin A1C 11.3 % (4.0-6.0)
[2020-03-20 07:17] LABS: Erythrocyte Sedimentation Rate 78 mm/hr (0-10)
[2020-03-20] MEDS: HYDROmorphone 1 mg/mL INJ 1 mL IVP ×4 (07:26→22:53)
--- NOTE | 2020-03-20 07:41 | CT_ITS ---
WS: [id number] CTA OF THE CHEST WITH PULMONARY EMBOLISM PROTOCOL TECHNIQUE: High-resolution contrast enhanced CTA of the chest with coronal and sagittal reformatted i eli with pulmonary embolism protocol. MIP images are also reviewed. CLINICAL INFORMATION: IV drug user, concern for septic emboli, severe respiratory alkalosis COMPARISON: None. DLP: 1169.[address] scans at [facility] use at least one of these dose optimization techniques: automat ed exposure control; mA and/or kV adjustment per patient size (includes targeted exams where dose is matched to clinical indication); or iterative reconstruction. FINDINGS: Images moderately degraded by respiratory motion. Proximal main pulmonary arteries are normal. Proxim al segmental pulmonary arteries appear patent. Mid and distal segmental and Subsegmental pulmonary ar teries not well visualized due to motion artifact. Normal caliber thoracic aorta. Prior sternotomy. No mediastinal or hilar lymphadenopathy. No axillary lymphadenopathy. Adrenal glands are normal. Normal GE junction. Lungs are well aerated. No acute pulmonary infiltrates . Normal visualized thoracic spine. CT/CT angio chest PE protcl [id number] IMPRESSION: 1. Proximal main pulmonary arteries are normal. No evidence of proximal pulmon patti embolus. Distal segmental and subsegmental pulmonary arteries degraded due to motion artifact and not well evaluated. 2. Normal caliber thoracic aorta. 3. No mediastinal or hilar lymphadenopathy. 4. Lungs are well aerated. No acute pulmonary infiltrates. 5. No other significant findings.
[2020-03-20] MEDS: sodium chloride 0.9% 1,000 ML 100 ML IV ×2 (09:27→20:57)
--- NOTE | 2020-03-20 09:53 | PC.CHAP ---
Pastoral Care Encounter/Spiritual Assessment Type of Contact [] Declined real estate transaction coordinator visit [] Patient/Family/Request visit [] Outpatient visit [] Follow-up visit [] Physician referral [] Code/Alert [] Routine visit [] Staff referral [] Actively dying [] Patient sleeping [] Family support [] [] Out of room [] Palliative care [] [] Receiving care in room [] Pre-surgical visit [] Trauma [] Long length of stay [] ICU visit [] Other: Relational/Emotional Strength [] Patient feels connected with others/family/visitors/staff [] Distress [] Loneliness/isolation [] Abandonment Spirituality of Patient [x] Person of Kimmie [] Attends [employer] of their Kimmie [] Believes in Prayer [] Reads Bible or Druze materials [] There are Spiritual issues to be addressed Table Tender Interventions [x] Prayer [x] Active listening [] Non-anxious presence [] Spiritual/emotional support [] Crisis/trauma care [x] Spiritual counseling [] Bereavement support [] Provided bereavement packet [x] Provided Bible/devotional materials [] Provided toy/stuffed animal, coloring book to patient or family member [] Provided Communion [] Anointing/[place] [] Salvation [] Completed spiritual assessment [] Other: Impact on Illness or Injury [] Angry [] Fearful [] Anxious [] Often cries [] Exhaustion [] Unable to work [] Unable to attend hindu [] Unable to walk/stand [] Unable to read [] Unable to drive [] Unable to eat/drink [] Unable to sleep [] Unable to be with family [] Patient intubated [] Other: Summary patient needs drug rehab gave patient [address] Time spent with patient 30 min
[2020-03-20 11:25] LABS: Glucose Point of Care 86 mg/dL (70-110)
[2020-03-20] MEDS: piperacillin-tazobactam 3.375 GM in sodium chloride 0.9% (plus) 50 ML IV ×2 (11:43→22:53)
[2020-03-20 12:04] LABS: Glucose Point of Care 268 mg/dL (70-110)
--- NOTE | 2020-03-20 13:53 | PM.PN ---
Subjective Subjective: Interval history: Patient continues to have left foot pain. Denies shortness of breath or chest pain. Noted this morning to be diaphoretic. Reports that he thinks it is hot in the room as nighttime was called and he requested to increase temperature. Admits using methamphetamines IV. Reports that he has been clean for a year but relapsed. Patient's left ankle medial malleolus area is severely inflamed and erythematous with open wound which is packed and has purulent discharge. Vitals/I&O/Wt Last Vital Signs Temp 97.6 F 03/20/20 12:00 Pulse 80 03/20/20 12:00 Resp 18 03/20/20 12:54 BP 111/71 03/20/20 12:00 Pulse Ox 100 03/20/20 12:00 03/19/20 03/20/20 03/20/20 22:59 06:59 14:59 Intake Total 1000.00 / 1000.00 360 / 360 Output Total 875 / 875 Balance 1000.00 / 1000.00 -515 / -515 Weight last 48 hrs Weight 108.862 kg Physical Exam Const: COMMON NORMALS: no acute distress and patient oriented x3 Resp: COMMON NORMALS: normal respiratory effort and clear to auscultation bilaterally AUSCULTATION: clear to auscultation bilaterally Cardio: COMMON NORMALS: regular rate, regular rhythm and S2 normal heart sound present RATE: regular rate RHYTHM: regular rhythm HEART SOUNDS: S2 normal heart sound present OTHER: No lower extremity edema GI: COMMON NORMALS: Normal to inspection, nondistended, normoactive bowel sounds present, Soft to palpation and non-tender PALPATION: Yes Soft to palpation Neuro: COMMON NORMALS: patient oriented x3 and no focal motor deficits Data : 03/19/20 17:45 03/20/20 00:35 Micro: Microbiology 03/19/20 20:05 Gram Stain - Final Ankle - #1 03/20/20 00:35 Blood Culture - Preliminary Blood SPECIMEN COLLECTED A&P Assessment and plan (1) Cellulitis and abscess of left leg: Status: Acute (2) DKA (diabetic ketoacidoses): Status: Acute (3) Substance abuse: Status: Acute (4) Schizophrenia: Status: Acute (5) H/O heart valve replacement with bioprosthetic valve: Status: Acute (6) Diabetes: Status: Acute (7) Hypertension: Status: Acute (8) Sepsis: Status: Acute Additional A&P Information Sepsis secondary to purulent cellulitis left ankle Symptoms started after IV drug abuse 2 weeks ago Sepsis criteria met with fever, tachypnea, leukocytosis, I will start vancomycin, Zosyn and clindamycin for toxin suppression CT left ankle with contrast to rule out necrotizing fasciitis because excruciating pain, he is high risk for septic joint, Blood cultures, aspirate from the wound to be sent for culture DKA Start regular insulin Criteria met with ketones positive, low bicarb, high blood sugar ABG showing respiratory alkalosis which is a compensation of metabolic acidosis Aggressive fluid resuscitation Check A1c level Patient does not use any medications, he is homeless, he struggling with IV drug abuse 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 DVT prophylaxis I would use SCDs for now in case he would require joint aspiration or further drainage of his purulent cellulitis of left ankle PLAN: Discussed case with Dr. Manriquez who will see patient in consultation. It appears that patient will require further surgical debridement and arthroscope. Continue current antibiotics. Repeat blood cultures in a.m. Discussed extensively regarding importance of avoiding IV drugs as it may result in severe disability and possibly mortality. Patient voiced understanding. Attestations Medical Necessity Statement*: Patient with IV drug abuse as well as severe skin/soft tissue infection and possible septic joint requires close inpatient monitoring, treatment and evaluation. Coding Level of Care Code Acute Mobile Patrol Officer for [facility] Diagnoses Cellulitis and abscess of left leg L03.116; L02.416 DKA (diabetic ketoacidoses) E11.10 Substance abuse F19.10 Schizophrenia F20.9 H/O heart valve replacement with bioprosthetic valve Z95.3 Diabetes E11.9 Hypertension I10 Sepsis A41.9
[2020-03-20] MEDS: iohexol 350 mg/mL 100 mL Btl IV ×2 (14:37)
--- NOTE | 2020-03-20 17:29 | PM.CONSULT ---
Providers/Reason For Consult Consulting Physican/Specialty*: Nicholas Manriquez D.P.M. Reason for Consult*: Diabetic foot infection with cellulitis left ankle with sepsis. Attending Physician: Francisco J Newsome MD History of Present Illness History of Present Illness Shree Hickman is a 50 year old male Meds/Allergies Home Medications and Allergies Home Medications Medication Instructions Recorded Confirmed Last Taken Type aripiprazole 15 mg PO DAILY 30 Days #30 tab 01/25/20 Unknown Rx hydroxyzine pamoate 50 mg PO Q6H PRN 30 Days #180 cap 01/25/20 Unknown Rx propranolol 20 mg PO TID 30 Days #90 tab 01/25/20 Unknown Rx trazodone 50 mg PO BEDTIME PRN 30 Days #30 01/25/20 Unknown Rx tab Allergies Allergy/AdvReac Type Severity Reaction Status Date / Time No Known Allergies Allergy Verified 03/19/20 18:22 Current Medications Current Medications Generic Name Dose Route Start Last Admin Trade Name Freq PRN Reason Stop Dose Admin Hydromorphone HCl 0 mg 03/20/20 06:06 03/20/20 12:54 Dilaudid Inj IVP 1 mg Q4H PRN Administration MODERATE TO SEVERE Vancomycin HCl 1,500 mg/ 250 mls @ 166.667 mls/hr 03/20/20 08:00 03/20/20 09:24 Sodium Chloride IV 166.7 mls/hr Q12H ROMA Administration Protocol Piperacillin Sod/Tazobactam 50 mls @ 12.5 mls/hr 03/20/20 06:30 03/20/20 11:43 Sod 3.375 gm/ Sodium Chloride IV 12.5 mls/hr Q8H ROMA Administration Protocol Sodium Chloride 1,000 mls @ 100 mls/hr 03/20/20 05:56 03/20/20 09:27 Sodium Chloride 0.9% IV 100 mls/hr .Q10H ROMA Administration Insulin Aspart 0 unit 03/20/20 08:00 03/20/20 12:44 Novolog SUBCUT 12 unit WM&BEDTIME ROMA Administration Protocol PFSH Acute PFSH: Medical History Bowel obstruction CAD (coronary artery disease) Diabetes Hepatitis C History of bacterial endocarditis Hypertension Surgical History History of aortic valve replacement with bioprosthetic valve History of heart valve replacement History of mitral valve replacement with bioprosthetic valve Family History Other No significant family history Social History (Updated 03/19/20 @ 22:50 by Kelly Szymanski MD) Smoking and tobacco status: never smoked Alcohol intake: never Housing: Other Details: Homeless Vitals/I&O/Wt Last Vital Signs Temp 98.1 F 03/20/20 15:55 Pulse 75 03/20/20 15:55 Resp 18 03/20/20 15:55 BP 115/77 03/20/20 15:55 Pulse Ox 99 03/20/20 15:55 03/20/20 03/20/20 03/20/20 06:59 14:59 22:59 Intake Total 1000.00 / 1000.00 960 / 960 Output Total 875 / 875 500 / 1375 Balance 1000.00 / 1000.00 85 / 85 -500 / -415 Weight last 48 hrs Weight 240 lb Physical Exam Narrative: EXAM NARRATIVE: GENERAL: Patient is alert and oriented ?3 and in no acute distress. The following is a focused bilateral lower extremity exam. VASCULAR: Dorsalis pedis and posterior tibial arteries palpable +2 bilaterally. Capillary refill time less than 3 seconds to the distal hallux bilaterally. Calf is supple and nontender proximally and distally. Pedal hair growth present bilaterally. NEUROLOGICAL: Protective sensation intact 10/10 sites, tested with [place] Cat monofilament to bilateral feet. DERMATOLOGICAL: Full-thickness wound probes to joint capsule at the left medial ankle, purulent drainage appreciated, [place] drain intact from emergency department provider, localized erythema at the medial foot and ankle, no proximal lymphangitic streaking. Dystrophic toenails 1 through 5 bilaterally. Dry cracking skin at the plantar feet bilaterally. No maceration or wound at webspaces 1 through 4 bilaterally. MUSCULOSKELETAL: Tenderness to palpation at the left medial ankle. Muscle strength 5 out of 5 in all 3 cardinal planes without crepitus at the left ankle. Able to wiggle toes on command. Neutral foot type bilaterally. Data Micro: Micro: Microbiology 03/19/20 20:05 Gram Stain - Final Ankle - #1 03/20/20 00:35 Blood Culture - Pr eliminary Blood SPECIMEN [facility] Other Data: Other data: White blood count 13.8 on admission March 19, 2020. Left shift in neutrophils. Erythrocyte sedimentation rate 78. CRP 147.9 hemoglobin A1c 11.3. Patient is currently afebrile with oral temperature of 98.1. X-ray taken March 19, 2020 of the left ankle shows extensive soft tissue edema medially, no erosive changes, no soft tissue emphysema, no foreign body and no obvious indications of osteomyelitis. CT scan left ankle performed March 19, 2020 shows cellulitis at the medial aspect of the ankle joint no abscess that is drainable, no soft tissue emphysema, no foreign body or osteomyelitis appreciated. A&P Assessment and plan (1) Sepsis: Status: Acute (2) Cellulitis and abscess of left leg: Status: Acute (3) Diabetes: Status: Acute Qualifiers: Diabetes mellitus type: type 2 Diabetes mellitus complication status: with hyperglycemia Patient is a 50-year-old uncontrolled diabetic male, abscess and cellulitis left medial ankle 2 weeks in duration with worsening of symptoms. Diabetic ketoacidosis and sepsis on admission. Leukocytosis, left shift in neutrophils, elevated ESR and CRP. Cellulitis on CT scan without obvious signs of osteomyelitis at the left ankle. Clinically patient has a abscess at his left medial ankle probes to joint capsule with significant devitalized full-thickness tissue and purulent drainage, this is a Nielsen grade 2 wound. -Patient to be n.p.o. after midnight tonight in preparation for I&D and arthrotomy left ankle plans for surgical debridement of left ankle wound medially, will perform ankle arthroscopy through a anterior lateral approach this will avoid accessing the ankle joint in proximity to the wound medially. -I performed a dressing change following evaluation Betadine wet-to-dry. -Receiving empiric IV antibiotics vancomycin, Zosyn and clindamycin. Wound culture taken in the emergency department post I&D pending -Podiatry will follow. Consult Attestations Medical Necessity Statement: Diabetic foot infection with abscess and cellulitis left ankle. Coding Level of Care Code Acute Mechanical Inspector for [facility] Diagnoses Sepsis A41.9 Cellulitis and abscess of left leg L03.116; L02.416 Diabetes E11.9 Diabetes mellitus type: type 2 Diabetes mellitus complication status: with hyperglycemia
[2020-03-20 17:52] LABS: Glucose Point of Care 302 mg/dL (70-110)
[2020-03-20] MEDS: acetaminophen 325 mg Tablet 650 MG PO (20:57)
[2020-03-20 21:21] LABS: Glucose Point of Care 264 mg/dL (70-110)
[2020-03-21] VITALS (16 sets, daily range): BP systolic 116–151; BP diastolic 68–105; PULSE 68–100; RESP 16–22; TEMP 36.2–37.1; O2SAT 94–100
[2020-03-21] MEDS: HYDROmorphone 1 mg/mL INJ 1 mL IVP ×4 (03:03→19:18)
[2020-03-21 05:25] LABS: Basophils % 0.4 %; Eosinophils # 0.1 10^3/uL (0.0-0.8); Eosinophils % 1.2 %; Hematocrit 35.5 % (42.0-52.0); Hemoglobin 11.7 g/dL (11.7-16.6); Lymphocytes # 1.5 10^3/uL (0.8-4.8); Lymphocytes % 28.3 %; Mean Corpuscular Hemoglobin 29.9 pg (28.0-34.0); Mean Corpuscular Volume 90.8 fL (80-94); Mean Platelet Volume 10.3 fL (7.4-10.4); Monocytes # 0.4 10^3/uL (0.2-0.9); Monocytes % 7.6 %; Neutrophils # 3.18 10^3/uL (1.8-7.7); Neutrophils % 61.9 %; Nucleated Red Blood Cells % 0 %; Platelet Count 191 10^3/cmm (130-400); Red Blood Count 3.91 10^6/uL (4.1-5.3); Red Cell Distribution Width 12.1 % (12.1-15.1); White Blood Count 5.1 10^3/uL (4.0-10.0)
[2020-03-21] MEDS: diphenhydrAMINE 25 mg Capsule PO (05:58)
[2020-03-21] MEDS: piperacillin-tazobactam 3.375 GM in sodium chloride 0.9% (plus) 50 ML IV ×3 (06:00→22:22)
[2020-03-21 06:04] LABS: Alanine Aminotransferase 8 U/L (0-41); Albumin Level 3.2 g/dL (3.5-5.2); Alkaline Phosphatase 83 IU/L (40-130); Anion Gap 12.1 (5-19); Aspartate Amino Transferase 9 U/L (0-40); Blood Urea Nitrogen 13 mg/dL (6-20); Calcium 8.2 mg/dL (8.5-10.5); Carbon Dioxide 24 mmol/L (22-29); Chloride 103 mmol/L (98-107); Glomerular Filtration Rate 120.4 mL/min (90-130); Glucose 265 mg/dL (65-115); Osmolality Calculated 289 mOsm/kg (285-295); Potassium 4.1 mmol/L (3.5-5.1); Sodium 135 mmol/L (136-145); Total Bilirubin 0.2 mg/dL (0.15-1.2); Total Protein 5.2 g/dL (6.6-8.7)
[2020-03-21 06:16] LABS: Slide Review Slide Review Perform
[2020-03-21 06:40] LABS: Glucose Point of Care 303 mg/dL (70-110)
--- NOTE | 2020-03-21 08:21 | PM.PN ---
Subjective Subjective: Interval history: Patient has been n.p.o. since midnight in preparation for I&D and arthroscopy left lower extremity. Denies any acute events overnight, afebrile, no leukocytosis. Vitals/I&O/Wt Last Vital Signs Temp 97.6 F 03/21/20 07:38 Pulse 68 03/21/20 07:38 Resp 18 03/21/20 07:38 BP 135/87 03/21/20 07:38 Pulse Ox 97 03/21/20 07:38 03/20/20 03/21/20 03/21/20 22:59 06:59 14:59 Intake Total 1300 / 2510 1050 / 3560 Output Total 1100 / 1975 625 / 2600 Balance 200 / 535 425 / 960 Weight last 48 hrs Weight 240 lb Physical Exam Narrative: EXAM NARRATIVE: GENERAL: Patient is alert and oriented ?3 and in no acute distress. The following is a focused bilateral lower extremity exam. VASCULAR: Dorsalis pedis and posterior tibial arteries palpable +2 bilaterally. Capillary refill time less than 3 seconds to the distal hallux bilaterally. Calf is supple and nontender proximally and distally. Pedal hair growth present bilaterally. NEUROLOGICAL: Protective sensation intact 10/10 sites, tested with [place] Cat monofilament to bilateral feet. DERMATOLOGICAL: Full-thickness wound probes to joint capsule at the left medial ankle, purulent drainage appreciated, [place] drain intact from emergency department provider, localized erythema at the medial foot and ankle, no proximal lymphangitic streaking. Dystrophic toenails 1 through 5 bilaterally. Dry cracking skin at the plantar feet bilaterally. No maceration or wound at webspaces 1 through 4 bilaterally. MUSCULOSKELETAL: Tenderness to palpation at the left medial ankle. Muscle strength 5 out of 5 in all 3 cardinal planes without crepitus at the left ankle. Able to wiggle toes on command. Neutral foot type bilaterally. Data : 03/21/20 05:07 03/21/20 05:07 Micro: Microbiology 03/21/20 05:10 Blood Culture - Preliminary Blood SPECIMEN COLLECTED 03/21/20 05:07 Blood Culture - Preliminary Blood SPECIMEN COLLECTED 03/20/20 00:35 Blood Culture - Preliminary Blood 03/19/20 20:05 Gram Stain - Final Ankle - #1 A&P Assessment and plan (1) Sepsis: Status: Acute (2) Cellulitis and abscess of left leg: Status: Acute (3) Diabetes: Status: Acute Qualifiers: Diabetes mellitus type: type 2 Diabetes mellitus complication status: with hyperglycemia Patient is a 50-year-old uncontrolled diabetic male, abscess and cellulitis left medial ankle 2 weeks in duration with worsening of symptoms. Diabetic ketoacidosis and sepsis on admission. Leukocytosis, left shift in neutrophils, elevated ESR and CRP. Cellulitis on CT scan without obvious signs of osteomyelitis at the left ankle. Clinically patient has a abscess at his left medial ankle probes to joint capsule with significant devitalized full-thickness tissue and purulent drainage, this is a Nielsen grade 2 wound. Patient n.p.o. since midnight preparation for I&D and arthroscopy left lower extremity. Patient evaluated preop, informed consent consigned patient is ready to proceed. Attestations Medical Necessity Statement*: Diabetic foot infection with cellulitis and sepsis Coding Level of Care Code Acute Apprentice Cook for [facility] Diagnoses Sepsis A41.9 Cellulitis and abscess of left leg L03.116; L02.416 Diabetes E11.9 Diabetes mellitus type: type 2 Diabetes mellitus complication status: with hyperglycemia
[2020-03-21] MEDS: sodium chloride 0.9% 1,000 ML 100 ML IV ×2 (08:36→17:19)
[2020-03-21 11:11] LABS: Glucose Point of Care 268 mg/dL (70-110)
--- NOTE | 2020-03-21 11:37 | SUR.PHASEI ---
pt awake alert anxious talking with DR ENRIQUEZ PT SMILING, VSS COOL WASHCLOTH TO PT FOREHEAD.
--- NOTE | 2020-03-21 11:56 | ANES.PREANE2 ---
Pre-Anesthetic Assessment Pre-Anesthetic Assessment: Height/Weight: Height 1.73 m Weight 108.862 kg Temp Pulse Resp BP Pulse Ox 98.8 F 75 20 H 116/84 100 03/21/20 11:25 03/21/20 11:25 03/21/20 11:25 03/21/20 11:25 03/21/20 11:25 Preop Diagnosis: ankle abcess Proposed Procedure: Operation Date: 03/21/20 12:10 Proposed Procedures p Incision And Drainage left lower extremity with left ankle arthroscopy(Left) - Nicholas Manriquez DPM s Ankle Arthroscopy(Left) - Nicholas Manriquez DPM Was Beta Leonidas taken within 24 hours: N/A (pt off propanalol for couple weeks) Last intake: Intake Last Liquid Date 03/20/20 Last Liquid Time 23:59 Last Solid Date 03/20/20 Last Solid Time 23:00 Last Intake: 23:00 Social: Social History: Alcohol and Tobacco Exam: Pre-Anes Outpt Exam: alert, oriented x 3, clear to auscultation bilaterally and regular rate & rhythm Airway: Submandibular: WNL Cervical ROM: WNL MP: 1 Dentition: False Pulmonary: Pulmonary: None reported CV/HEM: CV/HEM: CAD Comments: pt SP mitral and aortic valve replaced 2 yrs ago, no problems since : : None reported Hepatic: Hepatic: Hepatitis (hep C) GI: GI: None reported Metabolic: Metabolic: DM Musc/skel: Musc/skel: OA/DJD Neuropsych: Neuropsych: Anxiety Anesthetic Plan: ASA status: 3 Anesthesia: MAC Meds/Allergies Current Medications: Current Medications Generic Name Dose Route Start Last Admin Trade Name Geraldoq PRN Reason Stop Dose Admin Acetaminophen 650 mg 03/20/20 05:56 03/20/20 20:57 Tylenol PO 650 mg Q4H PRN Administration FEVER Hydromorphone HCl 0 mg 03/20/20 06:06 03/21/20 08:38 Dilaudid Inj IVP 9 mg Q4H PRN Administration MODERATE TO SEVER E Vancomycin HCl 1,5 00 mg/ 250 mls @ 166.667 mls/hr 03/20/20 08:00 03/21/20 10:07 Sodium Chloride IV Infused Q12H ROMA Infusion Protocol Piperacillin Sod/T azobactam 50 mls @ 12.5 mls /hr 03/20/20 06:30 03/21/20 10:21 Sod 3.375 gm/ So dium Chloride IV Infused Q8H ROMA Infusion Protocol Sodium Chloride 1,000 mls @ 100 m ls/hr 03/20/20 05:56 03/21/20 08:36 Sodium Chloride 0.9% IV 100 mls/hr .Q10H ROMA Administration Insulin Aspart 0 unit 03/20/20 08:00 03/21/20 11:10 Novolog SUBCUT Not Given WM&BEDTIME ROMA Protocol PFSH Anesthesia PFSH: Medical History Bowel obstruction CAD (coronary artery disease) Diabetes Hepatitis C History of bacterial endocarditis Hypertension Surgical History History of aortic valve replacement with bioprosthetic valve History of heart valve replacement History of mitral valve replacement with bioprosthetic valve Family History Other No significant family history Social History (Updated 03/19/20 @ 22:50 by Kelly Szymanski MD) Smoking and tobacco status: never smoked Alcohol intake: never Housing: Other Details: Homeless Data Anesthesia CBC & Chem 7: 03/21/20 05:07 03/21/20 05:07 Other Labs: Laboratory Results - last 48 hr 03/19/20 03/19/20 03/19/20 17:45 17:45 17:45 WBC 13.8 H RBC 5.10 Hgb 15.1 Hct 45.3 MCV 88.8 MCH 29.6 MCHC 33.3 RDW 11.9 L Plt Count 286 MPV 10.9 H Neut % (Auto) 81.7 Lymph % (Auto) 11.6 [place] % (Auto) 5.9 Eos % (Auto) 0.1 Baso % (Auto) 0.2 Neut # (Auto) 11.30 H Lymph # (Auto) 1.6 [place] # (Auto) 0.8 Eos # (Auto) 0.0 Baso # (Auto) 0.0 Nucleated RBC % (auto) 0 Nucleated RBCs # 0.0 ESR Specimen Type Sample Site ABG pH ABG pCO2 ABG pO2 ABG HCO3 ABG O2 Saturation ABG Base Excess Evan Test A-a O2 Gradient Hematocrit Hgb O2 Saturation Carboxyhemoglobin Methemoglobin Total Hemoglobin Ionized Calcium Organ Recovery Coordinator ID Sodium 128 L Potassium 3.9 Chloride 88 L Carbon Dioxide 19 L Anion Gap 24.9 H BUN 18 Creatinine 0.8 GFR Calculation 103.2 Glucose 450 H POC Glucose Estimat Average Glucose Hemoglobin A1c Calculated Osmolality 287 Calcium 9.3 Total Bilirubin 0.7 AST 9 ALT 10 Alkaline Phosphatase 115 C-Reactive Protein 147.9 H Total Protein 7.8 Albumin 4.2 Globulin 3.6 Urine Color Urine Appearance Urine pH Ur Specific [place] Urine Protein Urine Glucose (UA) Urine Ketones Urine Blood Urine Nitrate Urine Bilirubin Prot Sulfosalicylic Acd Urine Urobilinogen Ur Leukocyte Esterase Serum Ketones Positive H SARS-CoV-2 Ag (Rapid) 03/19/20 03/19/20 03/19/20 17:45 17:45 20:00 WBC RBC Hgb Hct MCV MCH MCHC RDW Plt Count MPV Neut % (Auto) Lymph % (Auto) [place] % (Auto) Eos % (Auto) Baso % (Auto) Neut # (Auto) Lymph # (Auto) [place] # (Auto) Eos # (Auto) Baso # (Auto) Nucleated RBC % (auto) Nucleated RBCs # ESR 78 H Specimen Type Sample Site ABG pH ABG pCO2 ABG pO2 ABG HCO3 ABG O2 Saturation ABG Base Excess Evan Test A-a O2 Gradient Hematocrit Hgb O2 Saturation Carboxyhemoglobin Methemoglobin Total Hemoglobin Ionized Calcium Organ Recovery Coordinator ID Sodium Potassium Chloride Carbon Dioxide Anion Gap BUN Creatinine GFR Calculation Glucose POC Glucose Estimat Average Glucose 278 Hemoglobin A1c 11.3 H Calculated Osmolality Calcium Total Bilirubin AST ALT Alkaline Phosphatase C-Reactive Protein Total Protein Albumin Globulin Urine Color Yellow Urine Appearance Clear Urine pH 5.0 Ur Specific [place] 1.015 Urine Protein 1+ H Urine Glucose (UA) 4+ H Urine Ketones 3+ H Urine Blood Neg Urine Nitrate Negative Urine Bilirubin Neg Prot Sulfosalicylic Acd Trace Urine Urobilinogen Neg Ur Leukocyte Esterase Negative Serum Ketones SARS-CoV-2 Ag (Rapid) 03/19/20 03/19/20 03/19/20 20:06 20:20 23:05 WBC RBC Hgb Hct MCV MCH MCHC RDW Plt Count MPV Neut % (Auto) Lymph % (Auto) [place] % (Auto) Eos % (Auto) Baso % (Auto) Neut # (Auto) Lymph # (Auto) [place] # (Auto) Eos # (Auto) Baso # (Auto) Nucleated RBC % (auto) Nucleated RBCs # ESR Specimen Type Arterial Sample Site Radial, right ABG pH 7.59 H* ABG pCO2 18.3 L* ABG pO2 100.0 ABG HCO3 17.3 L ABG O2 Saturation 97.4 ABG Base Excess -1.6 Evan Test Pos A-a O2 Gradient 3.2 L Hematocrit 45.8 Hgb O2 Saturation 96.6 Carboxyhemoglobin 0.3 L Methemoglobin 0.5 Total Hemoglobin 15.0 Ionized Calcium 1.1 Organ Recovery Coordinator ID ellpe Sodium 127.0 L Potassium 4.1 Chloride Carbon Dioxide Anion Gap BUN Creatinine GFR Calculation Glucose 365.0 H POC Glucose 326 Estimat Average Glucose Hemoglobin A1c Calculated Osmolality Calcium Total Bilirubin AST ALT Alkaline Phosphatase C-Reactive Protein Total Protein Albumin Globulin Urine Color Urine Appearance Urine pH Ur Specific [place] Urine Protein Urine Glucose (UA) Urine Ketones Urine Blood Urine Nitrate Urine Bilirubin Prot Sulfosalicylic Acd Urine Urobilinogen Ur Leukocyte Esterase Serum Ketones SARS-CoV-2 Ag (Rapid) Negative 03/20/20 03/20/20 03/20/20 00:35 01:32 04:57 WBC RBC Hgb Hct MCV MCH MCHC RDW Plt Count MPV Neut % (Auto) Lymph % (Auto) [place] % (Auto) Eos % (Auto) Baso % (Auto) Neut # (Auto) Lymph # (Auto) [place] # (Auto) Eos # (Auto) Baso # (Auto) Nucleated RBC % (auto) Nucleated RBCs # ESR Specimen Type Sample Site ABG pH ABG pCO2 ABG pO2 ABG HCO3 ABG O2 Saturation ABG Base Excess Evan Test A-a O2 Gradient Hematocrit Hgb O2 Saturation Carboxyhemoglobin Methemoglobin Total Hemoglobin Ionized Calcium Organ Recovery Coordinator ID Sodium 128 L Potassium 4.2 Chloride 94 L Carbon Dioxide 22 Anion Gap 16.2 BUN 18 Creatinine 1.0 GFR Calculation 79.8 L Glucose 435 H POC Glucose 421 334 Estimat Average Glucose Hemoglobin A1c Calculated Osmolality 287 Calcium 8.8 Total Bilirubin AST ALT Alkaline Phosphatase C-Reactive Protein Total Protein Albumin Globulin Urine Color Urine Appearance Urine pH Ur Specific [place] Urine Protein Urine Glucose (UA) Urine Ketones Urine Blood Urine Nitrate Urine Bilirubin Prot Sulfosalicylic Acd Urine Urobilinogen Ur Leukocyte Esterase Serum Ketones SARS-CoV-2 Ag (Rapid) 03/20/20 03/20/20 03/20/20 06:39 11:10 11:59 WBC RBC Hgb Hct MCV MCH MCHC RDW Plt Count MPV Neut % (Auto) Lymph % (Auto) [place] % (Auto) Eos % (Auto) Baso % (Auto) Neut # (Auto) Lymph # (Auto) [place] # (Auto) Eos # (Auto) Baso # (Auto) Nucleated RBC % (auto) Nucleated RBCs # ESR Specimen Type Sample Site ABG pH ABG pCO2 ABG pO2 ABG HCO3 ABG O2 Saturation ABG Base Excess Evan Test A-a O2 Gradient Hematocrit Hgb O2 Saturation Carboxyhemoglobin Methemoglobin Total Hemoglobin Ionized Calcium Organ Recovery Coordinator ID Sodium Potassium Chloride Carbon Dioxide Anion Gap BUN Creatinine GFR Calculation Glucose POC Glucose 291 86 268 Estimat Average Glucose Hemoglobin A1c Calculated Osmolality Calcium Total Bilirubin AST ALT Alkaline Phosphatase C-Reactive Protein Total Protein Albumin Globulin Urine Color Urine Appearance Urine pH Ur Specific [place] Urine Protein Urine Glucose (UA) Urine Ketones Urine Blood Urine Nitrate Urine Bilirubin Prot Sulfosalicylic Acd Urine Urobilinogen Ur Leukocyte Esterase Serum Ketones SARS-CoV-2 Ag (Rapid) 03/20/20 03/20/20 03/21/20 17:24 21:06 05:07 WBC 5.1 RBC 3.91 L Hgb 11.7 Hct 35.5 L MCV 90.8 MCH 29.9 MCHC 33.0 RDW 12.1 Plt Count 191 MPV 10.3 Neut % (Auto) 61.9 Lymph % (Auto) 28.3 [place] % (Auto) 7.6 Eos % (Auto) 1.2 Baso % (Auto) 0.4 Neut # (Auto) 3.18 Lymph # (Auto) 1.5 [place] # (Auto) 0.4 Eos # (Auto) 0.1 Baso # (Auto) 0.0 Nucleated RBC % (auto) 0 Nucleated RBCs # 0.0 ESR Specimen Type Sample Site ABG pH ABG pCO2 ABG pO2 ABG HCO3 ABG O2 Saturation ABG Base Excess Evan Test A-a O2 Gradient Hematocrit Hgb O2 Saturation Carboxyhemoglobin Methemoglobin Total Hemoglobin Ionized Calcium Organ Recovery Coordinator ID Sodium Potassium Chloride Carbon Dioxide Anion Gap BUN Creatinine GFR Calculation Glucose POC Glucose 302 264 Estimat Average Glucose Hemoglobin A1c Calculated Osmolality Calcium Total Bilirubin AST ALT Alkaline Phosphatase C-Reactive Protein Total Protein Albumin Globulin Urine Color Urine Appearance Urine pH Ur Specific [place] Urine Protein Urine Glucose (UA) Urine Ketones Urine Blood Urine Nitrate Urine Bilirubin Prot Sulfosalicylic Acd Urine Urobilinogen Ur Leukocyte Esterase Serum Ketones SARS-CoV-2 Ag (Rapid) 03/21/20 03/21/20 03/21/20 05:07 06:27 10:57 WBC RBC Hgb Hct MCV MCH MCHC RDW Plt Count MPV Neut % (Auto) Lymph % (Auto) [place] % (Auto) Eos % (Auto) Baso % (Auto) Neut # (Auto) Lymph # (Auto) [place] # (Auto) Eos # (Auto) Baso # (Auto) Nucleated RBC % (auto) Nucleated RBCs # ESR Specimen Type Sample Site ABG pH ABG pCO2 ABG pO2 ABG HCO3 ABG O2 Saturation ABG Base Excess Evan Test A-a O2 Gradient Hematocrit Hgb O2 Saturation Carboxyhemoglobin Methemoglobin Total Hemoglobin Ionized Calcium Organ Recovery Coordinator ID Sodium 135 L Potassium 4.1 Chloride 103 Carbon Dioxide 24 Anion Gap 12.1 BUN 13 Creatinine 0.7 GFR Calculation 120.4 Glucose 265 H POC Glucose 303 268 Estimat Average Glucose Hemoglobin A1c Calculated Osmolality 289 Calcium 8.2 L Total Bilirubin 0.2 AST 9 ALT 8 Alkaline Phosphatase 83 C-Reactive Protein Total Protein 5.2 L Albumin 3.2 L Globulin 2.0 Urine Color Urine Appearance Urine pH Ur Specific [place] Urine Protein Urine Glucose (UA) Urine Ketones Urine Blood Urine Nitrate Urine Bilirubin Prot Sulfosalicylic Acd Urine Urobilinogen Ur Leukocyte Esterase Serum Ketones SARS-CoV-2 Ag (Rapid) Micro: Microbiology 03/21/20 05:10 Blood Culture - Preliminary Blood SPECIMEN COLLECTED 03/21/20 05:07 Blood Culture - Preliminary Blood SPECIMEN COLLECTED 03/20/20 00:35 Blood Culture - Preliminary Blood 03/19/20 20:05 Gram Stain - Final Ankle - #1 Cardiac Studies: No Data to Display
--- NOTE | 2020-03-21 12:16 | P.PN_ITS ---
Subjective Subjective: Interval history: Patient denies shortness of breath or chest pain. Denies any pain including his lower extremity. Scheduled for I&D this afternoon. Blood cultures so far negative. Vitals/I&O/Wt Last Vital Signs Temp 98.8 F 03/21/20 11:25 Pulse 75 03/21/20 11:25 Resp 20 H 03/21/20 11:25 BP 116/84 03/21/20 11:25 Pulse Ox 100 03/21/20 11:25 03/20/20 03/21/20 03/21/20 22:59 06:59 14:59 Intake Total 1300 / 2510 1050 / 3560 300 / 300 Output Total 1100 / 1975 625 / 2600 1250 / 1250 Balance 200 / 535 425 / 960 -950 / -950 Weight last 48 hrs Weight 108.862 kg Physical Exam Const: COMMON NORMALS: no acute distress and patient oriented x3 Resp: COMMON NORMALS: normal respiratory effort and clear to auscultation bilaterally AUSCULTATION: clear to auscultation bilaterally Cardio: COMMON NORMALS: regular rate, regular rhythm and S2 normal heart sound present RATE: regular rate RHYTHM: regular rhythm HEART SOUNDS: S2 normal heart sound present OTHER: No lower extremity edema GI: COMMON NORMALS: Normal to inspection, nondistended, normoactive bowel sounds present, Soft to palpation and non-tender PALPATION: Yes Soft to palpation Neuro: COMMON NORMALS: patient oriented x3 and no focal motor deficits Data : 03/21/20 05:07 03/21/20 05:07 Micro: Microbiology 03/21/20 05:10 Blood Culture - Preliminary Blood SPECIMEN COLLECTED 03/21/20 05:07 Blood Culture - Preliminary Blood SPECIMEN COLLECTED 03/20/20 00:35 Blood Culture - Preliminary Blood 03/19/20 20:05 Gram Stain - Final Ankle - #1 A&P Assessment and plan (1) Cellulitis and abscess of left leg: Status: Acute (2) DKA (diabetic ketoacidoses): Status: Acute (3) Substance abuse: Status: Acute (4) Schizophrenia: Status: Acute (5) H/O heart valve replacement with bioprosthetic valve: Status: Acute (6) Diabetes: Status: Acute Qualifiers: Diabetes mellitus type: type 2 Diabetes mellitus complication status: with hyperglycemia (7) Hypertension: Status: Acute (8) Sepsis: Status: Acute Additional A&P Information Sepsis secondary to purulent cellulitis left ankle Symptoms started after IV drug abuse 2 weeks ago Sepsis criteria met with fever, tachypnea, leukocytosis, I will start vancomycin, Zosyn and clindamycin for toxin suppression CT left ankle with contrast to rule out necrotizing fasciitis because excruciating pain, he is high risk for septic joint, Blood cultures, aspirate from the wound to be sent for culture DKA Start regular insulin Criteria met with ketones positive, low bicarb, high blood sugar ABG showing respiratory alkalosis which is a compensation of metabolic acidosis Aggressive fluid resuscitation Check A1c level Patient does not use any medications, he is homeless, he struggling with IV drug abuse 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 DVT prophylaxis I would use SCDs for now in case he would require joint aspiration or further drainage of his purulent cellulitis of left ankle PLAN: Continue current monitoring and treatment including antibiotics. Awaiting surgical procedure later today. Attestations Medical Necessity Statement*: Patient with severe soft tissue infection and highly suspected septic knee requires close inpatient monitoring and treatment including surgical intervention. Coding Level of Care Code Acute Reflexologist for [facility] Fwd Diagnoses Cellulitis and abscess of left leg L03.116; L02.416 DKA (diabetic ketoacidoses) E11.10 Substance abuse F19.10 Schizophrenia F20.9 H/O heart valve replacement with bioprosthetic valve Z95.3 Diabetes E11.9 Diabetes mellitus type: type 2 Diabetes mellitus complication status: with hyperglycemia Hypertension I10 Sepsis A41.9
--- NOTE | 2020-03-21 12:58 | P.OP_ITS ---
Operative Report Date of procedure: March 21, 2020 Pre-op Diagnosis: ankle abcess Post-op diagnosis: same Procedure Done: Incision and debridement left ankle wound CPT code 90898. Left ankle arthroscopy Implants: 4-0 nylon Specimens removed/disposition: Arthrocentesis of left ankle synovial fluid sent to microbiology for Gram stain and culture. Soft tissue from left ankle abscess post debridement sent to microbiology for Gram stain and culture. Pathology: none sent Surgeon: Nicholas Manriquez D.P.M. Route Process Administrator: Malcom Jaramillo Anesthesia: MAC Estimated blood loss: 5 Tourniquet time: See intraoperative documentation IV fluids: None Urine output: None Complications: None Findings: Devitalized tissue down to myofascial layer medial aspect of left ankle. No devitalized tissue or signs of septic joint at the left ankle via arthroscopy CPT code 93965. Condition: stable Disposition: floor Brief History: Patient is a pleasant 50-year-old uncontrolled diabetic male who injected methamphetamine in his left medial ankle which developed a abscess, he was admitted for sepsis and DKA, x-ray and CT scan negative for obvious osteomyelitis. Recommended debridement of wound and arthroscopy left ankle. Patient agreeable wishes to proceed. No guarantees written, expressed or implied. Procedure: Under mild sedation the patient was brought to the operating room and placed on the operating table in supine position. A timeout was performed. Anesthesia was then administered by the anesthesia service. Local anesthesia injected by myself proximal ankle block to the left total of 30 cc 0.5% Marcaine plain utilized. Well-padded pneumatic tourniquet applied high calf to the left. Left lower extremity was scrubbed, prepped and draped utilizing normal aseptic technique. Attention was directed to the left lateral ankle wound which was wrapped in sterile Coban. Attention was directed to the anterior lateral left ankle just lateral to the peroneus tertius tendon a 11 blade was utilized to establish a lateral ankle border utilizing a eden and tuck technique. Joint arthrocentesis performed and synovial fluid sent to microbiology for Gram stain and culture. 4.0 ankle scope with 30 degree angle introduced to the anterior ankle was able to visualize the tibial plafond and talar dome inspected both medial and lateral gutters was unable to see any communication medially that would extend to the medial ankle wound. I did not appreciate any sinus tract at the medial ankle capsule. No purulence within the left ankle joint appreciated. Some anterior ankle joint nonhemorrhagic synovitis was appreciated, no loose bodies, synovectomy performed. The left ankle was irrigated with copious amounts of lactated Ringer's. Anterior lateral ankle portal was then reapproximated with 4-0 nylon. Attention was then directed to the medial aspect of the left ankle where a wound with devitalized tissue down to the myofascial layer was appreciated. A curvi linear incision was made at the medial tibia coursing down distal to the medial ankle 10 cm in length with a #15 blade. Sharp and blunt dissection carried down through the subcutaneous tissue and thorough debridement was performed of devitalized soft tissue including epidermis, dermis, subcu and liquefactive fat necrosis was appreciated. Following irrigation with saline solution deep soft tissue was harvested for a deep tissue culture for Gram stain and culture and sensitivity this was sent to microbiology. Further debridement both sharply and with rongeur was performed of devitalized tissue. The area was then packed with saline wet-to-dry utilizing 4 inch Kerlix with additional dressing consisting of 4 x 4's, Kerlix, forced Gio wrap. Patient tolerated procedure well and was transferred to the PACU with vital signs stable and vascular status intact. May require further debridement will continue to monitor his response to IV antibiotics.
--- NOTE | 2020-03-21 13:06 | SUR.PHASEI ---
1302 PATIENT TO PACU FROM OR. NO DISTRESS. A/OX3. DRESSING TO LEFT FOOT, CDI.
[2020-03-21] MEDS: fentaNYL 50 mcg/mL INJ 2mL 100 MCG IVP (13:07)
--- NOTE | 2020-03-21 13:20 | PM.PACU ---
PACU note Post-Anesthesia Exam: awake and vital signs stable Disposition: back to floor
--- NOTE | 2020-03-21 13:20 | PM.PACU ---
PACU note Post-Anesthesia Exam: vital signs stable Disposition: back to floor
--- NOTE | 2020-03-21 13:25 | SUR.PHASEI ---
1321 PATIENT TO MED SURG. NO DISTRESS. TALKATIVE. TOLERATING ICE CHIPS. DRESSING TO LEFT FOOT, CDI.
--- NOTE | 2020-03-21 15:33 | PC.NURSE ---
patient requested Alexey Hickman as patient's visitor. investment underwriter entered patient's visitor
--- NOTE | 2020-03-21 15:34 | PC.NURSE ---
Alexey Hickman is patient's personal computer network analyst, his number is [phone]
[2020-03-21 16:36] LABS: Glucose Point of Care 425 mg/dL (70-110)
[2020-03-21 16:36] LABS: Glucose Point of Care 504 mg/dL (70-110)
[2020-03-21 20:16] LABS: Vancomycin Trough 5.9 ug/mL (10-15)
[2020-03-21 21:57] LABS: Glucose Point of Care 155 mg/dL (70-110)
[2020-03-21] MEDS: oxyCODONE 5 mg IR Tab/Cap 10 MG PO (22:21)
[2020-03-21] MEDS: insulin glargine 100 units/1 mL 20 UNIT SUBCUT (22:21)
[2020-03-21] MEDS: diphenhydrAMINE 50 mg/mL SDV 1mL 25 MG IVP (22:22)
[2020-03-22] VITALS (9 sets, daily range): BP systolic 130–153; BP diastolic 66–89; PULSE 68–77; RESP 14–20; TEMP 36.6–36.8; O2SAT 97–99
[2020-03-22 03:18] LABS: Basophils % 0.3 %; Eosinophils # 0.1 10^3/uL (0.0-0.8); Hematocrit 36.1 % (42.0-52.0); Hemoglobin 11.6 g/dL (11.7-16.6); Lymphocytes # 1.7 10^3/uL (0.8-4.8); Lymphocytes % 29.3 %; Mean Corpuscular HGB Conc 32.1 g/dL (30.0-36.0); Mean Corpuscular Hemoglobin 29.7 pg (28.0-34.0); Mean Corpuscular Volume 92.3 fL (80-94); Mean Platelet Volume 11.7 fL (7.4-10.4); Monocytes # 0.5 10^3/uL (0.2-0.9); Monocytes % 8.2 %; Neutrophils # 3.48 10^3/uL (1.8-7.7); Neutrophils % 60.5 %; Nucleated Red Blood Cells % 0 %; Platelet Count 158 10^3/cmm (130-400); Red Blood Count 3.91 10^6/uL (4.1-5.3); White Blood Count 5.8 10^3/uL (4.0-10.0)
[2020-03-22 03:32] LABS: Slide Review Slide Review Perform
[2020-03-22] MEDS: oxyCODONE 5 mg IR Tab/Cap 10 MG PO ×4 (03:44→20:37)
[2020-03-22 03:46] LABS: Alanine Aminotransferase 10 U/L (0-41); Albumin Level 2.9 g/dL (3.5-5.2); Alkaline Phosphatase 94 IU/L (40-130); Aspartate Amino Transferase 11 U/L (0-40); Blood Urea Nitrogen 10 mg/dL (6-20); Calcium 8.4 mg/dL (8.5-10.5); Carbon Dioxide 23 mmol/L (22-29); Chloride 101 mmol/L (98-107); Glomerular Filtration Rate 143.8 mL/min (90-130); Glucose 292 mg/dL (65-115); Osmolality Calculated 288 mOsm/kg (285-295); Sodium 134 mmol/L (136-145); Total Bilirubin 0.2 mg/dL (0.15-1.2); Total Protein 5.9 g/dL (6.6-8.7)
[2020-03-22] MEDS: sodium chloride 0.9% 1,000 ML 100 ML IV ×2 (03:46→16:29)
[2020-03-22] MEDS: piperacillin-tazobactam 3.375 GM in sodium chloride 0.9% (plus) 50 ML IV ×3 (06:18→22:36)
[2020-03-22 06:49] LABS: Glucose Point of Care 238 mg/dL (70-110)
[2020-03-22] MEDS: sennosides-docusate Tablet 1 TAB PO (08:39)
--- NOTE | 2020-03-22 09:22 | PM.PN ---
Subjective Subjective: Interval history: Patient reports feeling better. Reports that oral pain medications last longer. Denies shortness of breath or chest pain. Patient had surgery yesterday and I have discussed with Dr. Manriquez. Patient had no evidence of septic joint but there was a concern for local necrotizing fasciitis. Dr. Manriquez is planning to repeat/revisit surgery in couple days. Vitals/I&O/Wt Last Vital Signs Temp 98.0 F 03/22/20 07:47 Pulse 75 03/22/20 07:47 Resp 20 H 03/22/20 07:47 BP 132/85 03/22/20 07:47 Pulse Ox 98 03/22/20 07:47 03/21/20 03/22/20 03/22/20 22:59 06:59 14:59 Intake Total 2421.667 / 3321.667 1780 / 5101.667 480 / 480 Output Total 2800 / 4075 2400 / 6475 Balance -378.333 / -753.333 -620 / -1373.333 480 / 480 Physical Exam Const: COMMON NORMALS: no acute distress and patient oriented x3 Resp: COMMON NORMALS: normal respiratory effort and clear to auscultation bilaterally AUSCULTATION: clear to auscultation bilaterally Cardio: COMMON NORMALS: regular rate, regular rhythm and S2 normal heart sound present RATE: regular rate RHYTHM: regular rhythm HEART SOUNDS: S2 normal heart sound present OTHER: No lower extremity edema. Left lower extremity is dressed. GI: COMMON NORMALS: Normal to inspection, nondistended, normoactive bowel sounds present, Soft to palpation and non-tender PALPATION: Yes Soft to palpation Neuro: COMMON NORMALS: patient oriented x3 and no focal motor deficits Data : 03/22/20 02:32 03/22/20 02:32 Micro: Microbiology 03/21/20 05:10 Blood Culture - Preliminary Blood NEGATIVE TO DATE 03/21/20 05:07 Blood Culture - Preliminary Blood NEGATIVE TO DATE 03/21/20 12:57 Gram Stain - Final Ankle - Left 03/21/20 12:57 Gram Stain - Final Ankle - Left 03/19/20 20:05 Gram Stain - Final Ankle - #1 Abscess Culture - Preliminary A&P Assessment and plan (1) Cellulitis and abscess of left leg: Status: Acute (2) DKA (diabetic ketoacidoses): Status: Acute (3) Substance abuse: Status: Acute (4) Schizophrenia: Status: Acute (5) H/O heart valve replacement with bioprosthetic valve: Status: Acute (6) Diabetes: Status: Acute Qualifiers: Diabetes mellitus type: type 2 Diabetes mellitus complication status: with hyperglycemia (7) Hypertension: Status: Acute (8) Sepsis: Resolved. Status: Acute Additional A&P Information Sepsis secondary to purulent cellulitis left ankle as well as deep tissue down to fascia. Symptoms started after IV drug abuse 2 weeks ago Sepsis criteria met with fever, tachypnea, leukocytosis, I will start vancomycin, Zosyn and clindamycin for toxin suppression CT left ankle with contrast to rule out necrotizing fasciitis because excruciating pain, he is high risk for septic joint, Blood cultures, aspirate from the wound to be sent for culture DKA Start regular insulin Criteria met with ketones positive, low bicarb, high blood sugar ABG showing respiratory alkalosis which is a compensation of metabolic acidosis Aggressive fluid resuscitation Check A1c level Patient does not use any medications, he is homeless, he struggling with IV drug abuse 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 DVT prophylaxis I would use SCDs for now in case he would require joint aspiration or further drainage of his purulent cellulitis of left ankle PLAN: Continue current monitoring and treatment including antibiotics. Patient may require repeat surgery in couple days and Dr. Manriquez will make that call. Encouraged oral intake. Attestations Medical Necessity Statement*: Patient with significant soft tissue infection including necrotizing fasciitis requires close inpatient monitoring and treatment. Coding Level of Care Code Acute Automatic Coin Machine Mechanic for [facility] Fwd Diagnoses Cellulitis and abscess of left leg L03.116; L02.416 DKA (diabetic ketoacidoses) E11.10 Substance abuse F19.10 Schizophrenia F20.9 H/O heart valve replacement with bioprosthetic valve Z95.3 Diabetes E11.9 Diabetes mellitus type: type 2 Diabetes mellitus complication status: with hyperglycemia Hypertension I10 Sepsis A41.9
--- NOTE | 2020-03-22 11:03 | ANE.PACU2 ---
Inpatient post-anesthesia follow up: Airway intact: Yes Vital signs: Temperature 98.0 F Pulse Rate [Apical ] 121 Pulse Rate 75 Respiratory Rate 20 Blood Pressure 132/85 Pulse Oximetry 98 Oxygen Delivery Me thod Room Air Oxygen Flow Rate Fraction of Inspir ed Oxygen Hydration adequate: Yes Nausea and vomiting: No Pain level: 1 Mental status: Baseline
[2020-03-22 11:38] LABS: Glucose Point of Care 324 mg/dL (70-110)
--- NOTE | 2020-03-22 12:50 | PM.PN ---
Subjective Subjective: Interval history: Patient is 1 day status post I&D left medial ankle wound, was a injection site for methamphetamine with subsequent abscess and cellulitis. Also 1 day status post left ankle arthroscopy with arthrocentesis. Vitals/I&O/Wt Last Vital Signs Temp 98.1 F 03/22/20 12:00 Pulse 68 03/22/20 12:00 Resp 16 03/22/20 12:00 BP 131/85 03/22/20 12:00 Pulse Ox 98 03/22/20 12:00 03/21/20 03/22/20 03/22/20 22:59 06:59 14:59 Intake Total 2421.667 / 3321.667 1780 / 5101.667 530 / 530 Output Total 2800 / 4075 2400 / 6475 1600 / 1600 Balance -378.333 / -753.333 -620 / -1373.333 -1070 / -1070 Physical Exam Narrative: EXAM NARRATIVE: GENERAL: Patient is alert and oriented ?3 and in no acute distress. The following is a focused bilateral lower extremity exam. VASCULAR: Dorsalis pedis and posterior tibial arteries palpable +2 bilaterally. Capillary refill time less than 3 seconds to the distal hallux bilaterally. Calf is supple and nontender proximally and distally. Pedal hair growth present bilaterally. NEUROLOGICAL: Protective sensation intact 10/10 sites, tested with [place] Cat monofilament to bilateral feet. DERMATOLOGICAL: Performed dressing change saline wet-to-dry with Kerlix right medial ankle, incision site measures 16 cm, no purulent drainage, periwound erythema remains, less intense. There is no proximal lymphangitic streaking of the left leg or thigh. Dystrophic toenails 1 through 5 bilaterally. Anterior lateral ankle border incision is well coapted with sutures intact no periincisional erythema, warmth or drainage. Dry cracking skin at the plantar feet bilaterally. No maceration or wound at webspaces 1 through 4 bilaterally. MUSCULOSKELETAL: Tenderness to palpation at the left medial ankle. Muscle strength 5 out of 5 in all 3 cardinal planes without crepitus at the left ankle. Able to wiggle toes on command. Neutral foot type bilaterally. Data : 03/22/20 02:32 03/22/20 02:32 Micro: Microbiology 03/21/20 12:57 Gram Stain - Final Ankle - Left Body Fluid Culture - Preliminary 03/20/20 00:35 Blood Culture - Preliminary Blood Staphylococcus sp coag neg 03/21/20 05:10 Blood Culture - Preliminary Blood NEGATIVE TO DATE 03/21/20 05:07 Blood Culture - Preliminary Blood NEGATIVE TO DATE 03/21/20 12:57 Gram Stain - Final Ankle - Left 03/19/20 20:05 Gram Stain - Final Ankle - #1 Abscess Culture - Preliminary A&P Assessment and plan (1) Sepsis: Status: Acute (2) Cellulitis and abscess of left leg: Status: Acute (3) Substance abuse: Status: Acute Patient is afebrile, no leukocytosis, surgical cultures pending. Continuing empiric IV antibiotics, patient reports improved pain relief. He is 1 day status post incision and debridement left medial ankle wound and left ankle arthroscopy with arthrocentesis. Perform dressing change today packed with saline soaked Kerlix, sterile 4 x 4's, dry Kerlix and Gio wrap. Patient is to keep his left lower extremity elevated while at rest. Awaiting cultures to be finalized, patient will require further IV antibiotics while inpatient and continued close monitoring. Planning on repeat trip to the OR for surgical debridement this Thursday morning 03/24/2020. Attestations Medical Necessity Statement*: Diabetic foot abscess with cellulitis Coding Level of Care Code Acute Grooving Lathe Tender for [facility] Diagnoses Sepsis A41.9 Cellulitis and abscess of left leg L03.116; L02.416 Substance abuse F19.10
[2020-03-22 17:01] LABS: Glucose Point of Care 176 mg/dL (70-110)
--- NOTE | 2020-03-22 19:15 | PC.NURSE ---
During bed side rounding Vancomycin that was due to be administered at noon was found to not be activated and only the normal saline was administered. Called pharmacy and Vanc was re-timed to 2029 and the trough was re-timed as well per pharmacy.
[2020-03-22] MEDS: diphenhydrAMINE 50 mg/mL SDV 1mL 25 MG IVP (20:42)
[2020-03-22 20:49] LABS: Glucose Point of Care 235 mg/dL (70-110)
[2020-03-22] MEDS: insulin glargine 100 units/1 mL 20 UNIT SUBCUT (22:07)
[2020-03-23] VITALS (8 sets, daily range): BP systolic 113–141; BP diastolic 71–95; PULSE 63–82; RESP 16–24; TEMP 35.9–37; O2SAT 98–99
[2020-03-23] MEDS: sodium chloride 0.9% 1,000 ML 100 ML IV ×2 (00:24→11:08)
[2020-03-23 05:27] LABS: Hematocrit 40.3 % (42.0-52.0); Hemoglobin 12.9 g/dL (11.7-16.6); Mean Corpuscular Hemoglobin 29.8 pg (28.0-34.0); Mean Corpuscular Volume 93.1 fL (80-94); Mean Platelet Volume 9.7 fL (7.4-10.4); Platelet Count 244 10^3/cmm (130-400); Red Blood Count 4.33 10^6/uL (4.1-5.3); Red Cell Distribution Width 11.9 % (12.1-15.1); White Blood Count 4.6 10^3/uL (4.0-10.0)
[2020-03-23 05:59] LABS: Slide Review Slide Review Perform
[2020-03-23 06:04] LABS: Alanine Aminotransferase 13 U/L (0-41); Albumin Level 3.2 g/dL (3.5-5.2); Alkaline Phosphatase 80 IU/L (40-130); Anion Gap 13.3 (5-19); Aspartate Amino Transferase 14 U/L (0-40); Blood Urea Nitrogen 9 mg/dL (6-20); Calcium 9.2 mg/dL (8.5-10.5); Carbon Dioxide 27 mmol/L (22-29); Chloride 102 mmol/L (98-107); Globulin 3.4 g/dL (1.3-4.6); Glomerular Filtration Rate 103.2 mL/min (90-130); Glucose 234 mg/dL (65-115); Osmolality Calculated 292 mOsm/kg (285-295); Potassium 4.3 mmol/L (3.5-5.1); Sodium 138 mmol/L (136-145); Total Bilirubin 0.2 mg/dL (0.15-1.2); Total Protein 6.6 g/dL (6.6-8.7)
[2020-03-23 06:05] LABS: Absolute Segmented Neutrophil 2.9 10/cmm (1.6-7.1); Anisocytosis Trace; Lymphocytes 32 %; Monocytes Absolute 0.3 10^3/cmm (0.1-0.6); Platelet Estimate Normal (Normal); Segmented Neutrophils 62 %; Total Cells Counted 100 (0-100)
[2020-03-23 06:17] LABS: Absolute Neutrophil 2.9 10^3/cmm (1.4-6.5); Eosinophils 0 %
[2020-03-23] MEDS: piperacillin-tazobactam 3.375 GM in sodium chloride 0.9% (plus) 50 ML IV ×2 (06:17→16:05)
[2020-03-23 06:47] LABS: Glucose Point of Care 221 mg/dL (70-110)
[2020-03-23] MEDS: sennosides-docusate Tablet 1 TAB PO (08:20)
[2020-03-23] MEDS: oxyCODONE 5 mg IR Tab/Cap 10 MG PO ×2 (08:44→22:03)
--- NOTE | 2020-03-23 09:05 | PM.PN ---
Subjective Subjective: Interval history: Patient reports feeling better. Denies shortness of breath or chest pain. Denies lower extremity pain. Vitals/I&O/Wt Last Vital Signs Temp 98.2 F 03/23/20 07:56 Pulse 81 03/23/20 07:56 Resp 18 03/23/20 08:44 BP 135/93 03/23/20 07:56 Pulse Ox 99 03/23/20 08:44 03/22/20 03/23/20 03/23/20 22:59 06:59 14:59 Intake Total 3300 / 4830 1451.667 / 6281.667 720 / 720 Output Total 3150 / 4750 Balance 150 / 80 1451.667 / 1531.667 720 / 720 Physical Exam Const: COMMON NORMALS: no acute distress and patient oriented x3 Resp: COMMON NORMALS: normal respiratory effort and clear to auscultation bilaterally AUSCULTATION: clear to auscultation bilaterally Cardio: COMMON NORMALS: regular rate, regular rhythm and S2 normal heart sound present RATE: regular rate RHYTHM: regular rhythm HEART SOUNDS: S2 normal heart sound present OTHER: No lower extremity edema GI: COMMON NORMALS: Normal to inspection, nondistended, normoactive bowel sounds present, Soft to palpation and non-tender PALPATION: Yes Soft to palpation Neuro: COMMON NORMALS: patient oriented x3 and no focal motor deficits Data : 03/23/20 04:50 03/23/20 04:50 Micro: Microbiology 03/19/20 20:05 Gram Stain - Final Ankle - #1 Abscess Culture - Preliminary 03/21/20 12:57 Gram Stain - Final Ankle - Left Tissue Culture - Preliminary 03/21/20 12:57 Gram Stain - Final Ankle - Left Body Fluid Culture - Preliminary 03/20/20 00:35 Blood Culture - Preliminary Blood Staphylococcus sp coag neg 03/21/20 05:10 Blood Culture - Preliminary Blood NEGATIVE TO DATE 03/21/20 05:07 Blood Culture - Preliminary Blood NEGATIVE TO DATE A&P Assessment and plan (1) Cellulitis and abscess of left leg: Status: Acute (2) DKA (diabetic ketoacidoses): Status: Acute (3) Substance abuse: Status: Acute (4) Schizophrenia: Status: Acute (5) H/O heart valve replacement with bioprosthetic valve: Status: Acute (6) Diabetes: Status: Acute Qualifiers: Diabetes mellitus type: type 2 Diabetes mellitus complication status: with hyperglycemia (7) Hypertension: Status: Acute (8) Sepsis: Resolved. Status: Acute Additional A&P Information Sepsis secondary to purulent cellulitis left ankle as well as deep tissue down to fascia, localized necrotizing fasciitis. Symptoms started after IV drug abuse 2 weeks ago Sepsis criteria met with fever, tachypnea, leukocytosis, I will start vancomycin, Zosyn and clindamycin for toxin suppression CT left ankle with contrast to rule out necrotizing fasciitis because excruciating pain, he is high risk for septic joint, Blood cultures, aspirate from the wound to be sent for culture DKA Start regular insulin Criteria met with ketones positive, low bicarb, high blood sugar ABG showing respiratory alkalosis which is a compensation of metabolic acidosis Aggressive fluid resuscitation Check A1c level Patient does not use any medications, he is homeless, he struggling with IV drug abuse 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 DVT prophylaxis I would use SCDs for now in case he would require joint aspiration or further drainage of his purulent cellulitis of left ankle PLAN: Continue current monitoring and treatment including antibiotics. Blood culture is growing staph coag negative which appears to be a contamination. Repeat blood cultures so far negative. OR trip planned for tomorrow. Awaiting culture results. Attestations Medical Necessity Statement*: Patient with necrotizing fasciitis requires close inpatient monitoring and treatment. 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 Diagnoses Cellulitis and abscess of left leg L03.116; L02.416 DKA (diabetic ketoacidoses) E11.10 Substance abuse F19.10 Schizophrenia F20.9 H/O heart valve replacement with bioprosthetic valve Z95.3 Diabetes E11.9 Diabetes mellitus type: type 2 Diabetes mellitus complication status: with hyperglycemia Hypertension I10 Sepsis A41.9
[2020-03-23] MEDS: diphenhydrAMINE 50 mg/mL SDV 1mL 25 MG IVP ×2 (10:28→22:19)
[2020-03-23] MEDS: LORazepam 2 mg/mL INJ 1 mL 0.5 MG IVP ×2 (10:35→20:09)
[2020-03-23 11:19] LABS: Glucose Point of Care 418 mg/dL (70-110)
--- NOTE | 2020-03-23 12:00 | P.PN_ITS ---
Subjective Subjective: Interval history: Patient is 2 days status post left medial ankle incision and debridement and left ankle arthroscopy with arthrocentesis. He is in good spirits. Denies any acute events overnight. States his pain is under control. Tolerating regular diet. Patient denies any subjective nausea, vomiting, fever, chills, shortness of breath or chest pain. Vitals/I&O/Wt Last Vital Signs Temp 98.2 F 03/23/20 07:56 Pulse 81 03/23/20 07:56 Resp 18 03/23/20 08:44 BP 135/93 03/23/20 07:56 Pulse Ox 99 03/23/20 08:44 03/22/20 03/23/20 03/23/20 22:59 06:59 14:59 Intake Total 3300 / 4830 1451.667 / 6281.667 1770 / 1770 Output Total 3150 / 4750 700 / 700 Balance 150 / 80 1451.667 / 8503.376 1039 / 1070 Physical Exam Narrative: EXAM NARRATIVE: Patient is alert and oriented ?3 and in no acute distress. The following is a focused bilateral lower extremity exam. VASCULAR: Dorsalis pedis and posterior tibial arteries palpable +2 bilaterally. Capillary refill time less than 3 seconds to the distal hallux bilaterally. Calf is supple and nontender proximally and distally. Pedal hair growth present bila terally. NEUROLOGICAL: Protective sensation intact 10/10 sites, tested with [place] Cat monofilament to bilateral feet. DERMATOLOGICAL: Performed dressing change saline wet-to-dry with Kerlix right medial ankle, incision site measures 16 cm, no purulent drainage, periwound erythema remains, less intense. There is no proximal lymphangitic streaking of the left leg or thigh. Dystrophic toenails 1 through 5 bilaterally. Anterior lateral ankle border incision is well coapted with sutures intact no periincisional erythema, warmth or drainage. Dry cracking skin at the plantar feet bilaterally. No maceration or wound at webspaces 1 through 4 bilaterally. MUSCULOSKELETAL: Tenderness to palpation at the left medial ankle. Muscle strength 5 out of 5 in all 3 cardinal planes without crepitus at the left ankle. Able to wiggle toes on command. Neutral foot type bilaterally. Data : 03/23/20 04:50 10/23/20 04:50 Micro: Microbiology 03/21/20 12:57 Gram Stain - Final Ankle - Left Body Fluid Culture - Preliminary Streptococcus Group C 03/19/20 20:05 Gram Stain - Final Ankle - #1 Abscess Culture - Final 03/21/20 12:57 Gram Stain - Final Ankle - Left Tissue Culture - Preliminary 03/20/20 00:35 Blood Culture - Preliminary Blood Staphylococcus sp coag neg A&P Assessment and plan (1) Sepsis: Status: Acute Qualifiers: Sepsis type: Streptococcus, other Sepsis acute organ dysfunction status: without acute organ dysfunction Qualified Code(s): A40.8 - Other streptococcal sepsis (2) Cellulitis and abscess of left leg: Status: Acute (3) Substance abuse: Status: Acute Patient is afebrile, no leukocytosis, surgical cultures pending. Continuing empiric IV antibiotics, patient reports improved pain relief. He is 2 day status post incision and debridement left medial ankle wound and left ankle arthroscopy with arthrocentesis. Perform dressing change today packed with saline soaked Kerlix, sterile 4 x 4's, dry Kerlix and Gio wrap. Patient is to keep his left lower extremity elevated while at rest. Left ankle arthrocentesis culture growing strep group C. Clinically left lower extremity is improving with decreased edema, decreased erythema, no purulence on dressing change. Would like to continue empiric IV antibiotics, should soft tissue continue to show improvement will performed partial primary delayed closure with drain placement versus wound VAC next week. Will continue to follow patient through the weekend performing daily dressing changes and repeat evaluation. Patient will need referral to wound care on discharge. Attestations Medical Necessity Statement*: Diabetic foot infection with abscess and cellulitis Coding Level of Care Code Acute Proposal Consultant for [facility] Diagnoses Sepsis A40.8 Sepsis type: Streptococcus, other Sepsis acute organ dysfunction status: without acute organ dysfunction Cellulitis and abscess of left leg L03.116; L02.416 Substance abuse F19.10
[2020-03-23 18:02] LABS: Glucose Point of Care 194 mg/dL (70-110)
[2020-03-23] MEDS: insulin glargine 100 units/1 mL 20 UNIT SUBCUT (22:30)
[2020-03-24] MEDS: piperacillin-tazobactam 3.375 GM in sodium chloride 0.9% (plus) 50 ML IV (01:46)
[2020-03-24] MEDS: sodium chloride 0.9% 1,000 ML 100 ML IV ×2 (01:50→18:37)
[2020-03-24 04:00] VITALS: BP 129/87; PULSE 77; RESP 20; TEMP 36.7; O2SAT 97
[2020-03-24 08:00] VITALS: BP 131/84; PULSE 79; RESP 20; TEMP 36.7; O2SAT 96
[2020-03-24 08:44] LABS: Basophils % 0.3 %; Eosinophils # 0.1 10^3/uL (0.0-0.8); Eosinophils % 0.8 %; Hematocrit 41.3 % (42.0-52.0); Hemoglobin 13.4 g/dL (11.7-16.6); Lymphocytes # 2.1 10^3/uL (0.8-4.8); Lymphocytes % 34.7 %; Mean Corpuscular HGB Conc 32.4 g/dL (30.0-36.0); Mean Corpuscular Hemoglobin 29.3 pg (28.0-34.0); Mean Corpuscular Volume 90.4 fL (80-94); Mean Platelet Volume 9.4 fL (7.4-10.4); Monocytes # 0.3 10^3/uL (0.2-0.9); Monocytes % 5.6 %; Neutrophils # 3.39 10^3/uL (1.8-7.7); Neutrophils % 57.6 %; Nucleated Red Blood Cells % 0 %; Platelet Count 263 10^3/cmm (130-400); Red Blood Count 4.57 10^6/uL (4.1-5.3); Red Cell Distribution Width 11.9 % (12.1-15.1); White Blood Count 5.9 10^3/uL (4.0-10.0)
[2020-03-24 09:01] LABS: Alanine Aminotransferase 16 U/L (0-41); Albumin Level 3.4 g/dL (3.5-5.2); Alkaline Phosphatase 81 IU/L (40-130); Anion Gap 15.2 (5-19); Aspartate Amino Transferase 13 U/L (0-40); Blood Urea Nitrogen 12 mg/dL (6-20); Calcium 9.1 mg/dL (8.5-10.5); Carbon Dioxide 23 mmol/L (22-29); Chloride 100 mmol/L (98-107); Globulin 3.5 g/dL (1.3-4.6); Glomerular Filtration Rate 143.8 mL/min (90-130); Glucose 274 mg/dL (65-115); Osmolality Calculated 288 mOsm/kg (285-295); Potassium 4.2 mmol/L (3.5-5.1); Sodium 134 mmol/L (136-145); Total Bilirubin 0.2 mg/dL (0.15-1.2); Total Protein 6.9 g/dL (6.6-8.7)
[2020-03-24 09:50] LABS: Glucose Point of Care 359 mg/dL (70-110)
[2020-03-24] MEDS: sennosides-docusate Tablet 1 TAB PO (10:53)
--- NOTE | 2020-03-24 10:54 | PM.PN ---
Subjective Subjective: Interval history: Patient is 2 days status post left medial ankle incision and debridement and left ankle arthroscopy with arthrocentesis. He is in good spirits. Denies any acute events overnight. States his pain is under control. Tolerating regular diet. Patient denies any subjective nausea, vomiting, fever, chills, shortness of breath or chest pain. Patient's cultures including synovial fluid growing Streptococcus group C. Vitals/I&O/Wt Last Vital Signs Temp 98.0 F 03/24/20 08:00 Pulse 79 03/24/20 08:00 Resp 20 H 03/24/20 08:00 BP 131/84 03/24/20 08:00 Pulse Ox 96 03/24/20 08:00 03/23/20 03/24/20 03/24/20 22:59 06:59 14:59 Intake Total 1710 / 4210 240 / 4450 250 / 250 Output Total 520 / 1220 Balance 1710 / 3510 -280 / 3230 250 / 250 Physical Exam Const: COMMON NORMALS: no acute distress and patient oriented x3 Resp: COMMON NORMALS: normal respiratory effort and clear to auscultation bilaterally AUSCULTATION: clear to auscultation bilaterally Cardio: COMMON NORMALS: regular rate, regular rhythm and S2 normal heart sound present RATE: regular rate RHYTHM: regular rhythm HEART SOUNDS: S2 normal heart sound present OTHER: No lower extremity edema GI: COMMON NORMALS: Normal to inspection, nondistended, normoactive bowel sounds present, Soft to palpation and non-tender PALPATION: Yes Soft to palpation Neuro: COMMON NORMALS: patient oriented x3 and no focal motor deficits Data : 03/24/20 08:30 03/24/20 08:30 Micro: Microbiology 03/21/20 12:57 Gram Stain - Final Ankle - Left Tissue Culture - Preliminary Streptococcus Group C 03/21/20 12:57 Gram Stain - Final Ankle - Left Body Fluid Culture - Preliminary Streptococcus Group C 03/19/20 20:05 Gram Stain - Final Ankle - #1 Abscess Culture - Final A&P Assessment and plan (1) Cellulitis and abscess of left leg: Status: Acute (2) DKA (diabetic ketoacidoses): Status: Acute (3) Substance abuse: Status: Acute (4) Schizophrenia: Status: Acute (5) H/O heart valve replacement with bioprosthetic valve: Status: Acute (6) Diabetes: Status: Acute Qualifiers: Diabetes mellitus type: type 2 Diabetes mellitus complication status: with hyperglycemia (7) Hypertension: Status: Acute (8) Sepsis: Resolved. Status: Acute Qualifiers: Sepsis type: Streptococcus, other Sepsis acute organ dysfunction status: without acute organ dysfunction Qualified Code(s): A40.8 - Other streptococcal sepsis (9) Septic arthritis due to Streptococcus species: With evidence of localized necrotizing fasciitis. Present on admission. Status: Acute Additional A&P Information Sepsis secondary to purulent cellulitis left ankle as well as deep tissue down to fascia, localized necrotizing fasciitis. Symptoms started after IV drug abuse 2 weeks ago Sepsis criteria met with fever, tachypnea, leukocytosis, I will start vancomycin, Zosyn and clindamycin for toxin suppression CT left ankle with contrast to rule out necrotizing fasciitis because excruciating pain, he is high risk for septic joint, Blood cultures, aspirate from the wound to be sent for culture DKA Start regular insulin Criteria met with ketones positive, low bicarb, high blood sugar ABG showing respiratory alkalosis which is a compensation of metabolic acidosis Aggressive fluid resuscitation Check A1c level Patient does not use any medications, he is homeless, he struggling with IV drug abuse 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 DVT prophylaxis I would use SCDs for now in case he would require joint aspiration or further drainage of his purulent cellulitis of left ankle PLAN: We will change antibiotics to IV ceftriaxone. Discussed with Dr. Manriquez who plans to take patient back to the OR on Thursday to make sure patient clinically is improving. Patient has no insurance and is at high risk for misusing PICC line therefore I think it will be reasonable to transition patient to oral antibiotic at discharge if patient clinically continues to show improvement. Attestations Medical Necessity Statement*: Patient with septic arthritis and necrotizing fasciitis requires close inpatient monitoring and treatment until deemed safe for discharge. Coding Level of Care Code Acute [facility] Attendant for [facility] Fwd Diagnoses Cellulitis and abscess of left leg L03.116; L02.416 DKA (diabetic ketoacidoses) E11.10 Substance abuse F19.10 Schizophrenia F20.9 H/O heart valve replacement with bioprosthetic valve Z95.3 Diabetes E11.9 Diabetes mellitus type: type 2 Diabetes mellitus complication status: with hyperglycemia Hypertension I10 Sepsis A40.8 Sepsis type: Streptococcus, other Sepsis acute organ dysfunction status: without acute organ dysfunction Septic arthritis due to Streptococcus species M00.20
[2020-03-24 12:00] VITALS: BP 133/87; PULSE 81; RESP 20; TEMP 36.9; O2SAT 95
[2020-03-24 12:15] VITALS: RESP 18
[2020-03-24] MEDS: oxyCODONE 5 mg IR Tab/Cap 10 MG PO ×2 (12:15→20:50)
[2020-03-24] MEDS: cefTRIAXone 2,000 MG in sodium chloride 0.9% (plus) 50 ML 100 MG IV (12:17)
[2020-03-24] MEDS: diphenhydrAMINE 50 mg/mL SDV 1mL 25 MG IVP (12:37)
[2020-03-24] MEDS: LORazepam 2 mg/mL INJ 1 mL 0.5 MG IVP (12:38)
[2020-03-24 12:39] LABS: Glucose Point of Care 137 mg/dL (70-110)
--- NOTE | 2020-03-24 13:45 | P.PN_ITS ---
Subjective Subjective: Interval history: Mr Hickman is 3 days status post left medial ankle incision and debridement and left ankle arthroscopy with arthrocentesis. Showing improvement. Denies any acute events overnight. States his pain is under control. Tolerating regular diet. Patient denies any subjective nausea, vomiting, fever, chills, shortness of breath or chest pain. Patient's cultures including synovial fluid growing Streptococcus group C. Vitals/I&O/Wt Last Vital Signs Temp 98.4 F 03/24/20 12:00 Pulse 81 03/24/20 12:00 Resp 18 03/24/20 12:15 BP 133/87 03/24/20 12:00 Pulse Ox 95 03/24/20 12:00 03/23/20 03/24/20 03/24/20 22:59 06:59 14:59 Intake Total 1710 / 4210 240 / 4450 670 / 670 Output Total 520 / 1220 950 / 950 Balance 1710 / 3510 -280 / 3230 -280 / -280 Physical Exam Narrative: EXAM NARRATIVE: Patient is alert and oriented ?3 and in no acute distress. The following is a focused bilateral lower extremity exam. VASCULAR: Dorsalis pedis and posterior tibial arteries palpable +2 bilaterally. Capillary refill time less than 3 seconds to the distal hallux bilaterally. Calf is supple and nontender proximally and distally. Pedal hair growth present bilaterally. NEUROLOGICAL: Protective sensation intact 10/10 sites, tested with [place] Cat monofilament to bilateral feet. DERMATOLOGICAL: Performed dressing change saline wet-to-dry with Kerlix right medial ankle, incision site measures 16 cm, no purulent drainage, periwound erythema remains, less intense. There is no proximal lymphangitic streaking of the left leg or thigh. Dystrophic toenails 1 through 5 bilaterally. Anterior lateral ankle border incision is well coapted with sutures intact no periincisional erythema, warmth or drainage. Dry cracking skin at the plantar feet bilaterally. No maceration or wound at webspaces 1 through 4 bilaterally. MUSCULOSKELETAL: Tenderness to palpation at the left medial ankle. Muscle strength 5 out of 5 in all 3 cardinal planes without crepitus at the left ankle. Able to wiggle toes on command. Neutral foot type bilaterally. Data : 03/24/20 08:30 03/24/20 08:30 Micro: Microbiology 03/21/20 12:57 Gram Stain - Final Ankle - Left Body Fluid Culture - Final Streptococcus Group C 03/21/20 12:57 Gram Stain - Final Ankle - Left Tissue Culture - Preliminary Streptococcus Group C 03/19/20 20:05 Gram Stain - Final Ankle - #1 Abscess Culture - Final A&P Assessment and plan (1) Sepsis: Status: Acute Qualifiers: Sepsis type: Streptococcus, other Sepsis acute organ dysfunction sta tus: without acute organ dysfunction Qualified Code(s): A40.8 - Other streptococcal sepsis (2) Cellulitis and abscess of left leg: Status: Acute (3) Substance abuse: Status: Acute Patient is afebrile, no leukocytosis, surgical cultures pending. Continuing empiric IV antibiotics, patient reports improved pain relief. He is 3 day status post incision and debridement left medial ankle wound and left ankle arthroscopy with arthrocentesis. Perform dressing change today packed with saline soaked Kerlix, sterile 4 x 4's, dry Kerlix and Gio wrap. Patient is to keep his left lower extremity elevated while at rest. Left ankle arthrocentesis culture growing strep group C. Clinically left lower extremity is improving with decreased edema, decreased erythema, no purulence on dressing change. Would like to continue empiric IV antibiotics, should soft tissue continue to show improvement will performed partial primary delayed closure with drain placement versus wound VAC next week. Will continue to follow patient through the weekend performing daily dressing changes and repeat evaluation. Patient will need referral to wound care on discharge. Attestations Medical Necessity Statement*: Diabetic foot infection with abscess and cellulitis, sepsis on admission. IV drug abuse. 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
[2020-03-24 15:21] VITALS: BP 130/86; PULSE 85; RESP 20; TEMP 36.9; O2SAT 95
[2020-03-24 17:07] LABS: Glucose Point of Care 194 mg/dL (70-110)
[2020-03-24 19:38] VITALS: BP 117/75; PULSE 72; RESP 20; TEMP 36.6; O2SAT 97
[2020-03-24 20:11] LABS: Glucose Point of Care 202 mg/dL (70-110)
[2020-03-24] MEDS: insulin glargine 100 units/1 mL 20 UNIT SUBCUT (20:49)
[2020-03-25] VITALS (9 sets, daily range): BP systolic 107–160; BP diastolic 70–100; PULSE 59–87; RESP 16–22; TEMP 36.4–37; O2SAT 97–100
[2020-03-25] MEDS: LORazepam 2 mg/mL INJ 1 mL 0.5 MG IVP (00:35)
[2020-03-25] MEDS: diphenhydrAMINE 50 mg/mL SDV 1mL 25 MG IVP ×2 (00:38→15:12)
[2020-03-25] MEDS: sodium chloride 0.9% 1,000 ML 100 ML IV ×3 (00:58→22:01)
--- NOTE | 2020-03-25 05:47 | PC.NURSE ---
At approximately 20:00 upon entering the patients room he was observed to be highly agitated. He expressed that he no longer desired to be in the hospital and wanted to leave. Patient was educated that it would be best to continue hospital stay due to current infection in his left foot. Patient stated Fuck staying in the hospital, take this IV out, better yet I will take it out . Patient was informed that Physician would need to be informed of patients desire to leave. Nurse left room to inform physician and obtain AMA paper for patient to sign. Upon returning to patient's room he was found setting up in chair next to bed. Patient's mood had became calm and collected with him apologizing for previous behavior. He stated that he needed to just get up and walk even if just around patient's room. Patient was informed that he was able to move freely as desired and continued stay would be best. Patient expressed agreeance with continued stay and again apologized for previous outburst.
[2020-03-25 06:38] LABS: Glucose Point of Care 231 mg/dL (70-110)
[2020-03-25 08:43] LABS: Basophils % 0.3 %; Eosinophils # 0.1 10^3/uL (0.0-0.8); Eosinophils % 0.8 %; Hematocrit 43.5 % (42.0-52.0); Hemoglobin 14.5 g/dL (11.7-16.6); Lymphocytes % 31.8 %; Mean Corpuscular HGB Conc 33.3 g/dL (30.0-36.0); Mean Corpuscular Hemoglobin 29.2 pg (28.0-34.0); Mean Corpuscular Volume 87.5 fL (80-94); Mean Platelet Volume 9.3 fL (7.4-10.4); Monocytes # 0.4 10^3/uL (0.2-0.9); Monocytes % 5.6 %; Neutrophils # 3.76 10^3/uL (1.8-7.7); Neutrophils % 60.4 %; Nucleated Red Blood Cells % 0 %; Platelet Count 255 10^3/cmm (130-400); Red Blood Count 4.97 10^6/uL (4.1-5.3); Red Cell Distribution Width 11.9 % (12.1-15.1); White Blood Count 6.2 10^3/uL (4.0-10.0)
[2020-03-25] MEDS: sennosides-docusate Tablet 1 TAB PO (08:58)
[2020-03-25 09:01] LABS: Alanine Aminotransferase 22 U/L (0-41); Albumin Level 3.6 g/dL (3.5-5.2); Alkaline Phosphatase 81 IU/L (40-130); Anion Gap 17.3 (5-19); Aspartate Amino Transferase 22 U/L (0-40); Blood Urea Nitrogen 12 mg/dL (6-20); Calcium 9.5 mg/dL (8.5-10.5); Carbon Dioxide 22 mmol/L (22-29); Chloride 101 mmol/L (98-107); Globulin 3.7 g/dL (1.3-4.6); Glomerular Filtration Rate 143.8 mL/min (90-130); Glucose 244 mg/dL (65-115); Osmolality Calculated 290 mOsm/kg (285-295); Potassium 4.3 mmol/L (3.5-5.1); Sodium 136 mmol/L (136-145); Total Bilirubin 0.2 mg/dL (0.15-1.2); Total Protein 7.3 g/dL (6.6-8.7)
[2020-03-25] MEDS: oxyCODONE 5 mg IR Tab/Cap 10 MG PO ×2 (09:02→21:57)
--- NOTE | 2020-03-25 09:05 | PM.PN ---
Subjective Subjective: Interval history: Patient is doing okay this morning. Denies shortness of breath or chest pain. Vitals/I&O/Wt Last Vital Signs Temp 97.9 F 03/25/20 07:14 Pulse 70 03/25/20 07:14 Resp 16 03/25/20 07:14 BP 107/70 03/25/20 07:14 Pulse Ox 98 03/25/20 07:14 03/24/20 03/25/20 03/25/20 22:59 06:59 14:59 Intake Total 640 / 2310 1355 / 3665 560 / 560 Output Total 3800 / 4750 1200 / 5950 850 / 850 Balance -3160 / -2440 155 / -2285 -290 / -290 Physical Exam Const: COMMON NORMALS: no acute distress and patient oriented x3 Resp: COMMON NORMALS: normal respiratory effort and clear to auscultation bilaterally AUSCULTATION: clear to auscultation bilaterally Cardio: COMMON NORMALS: regular rate, regular rhythm and S2 normal heart sound present RATE: regular rate RHYTHM: regular rhythm HEART SOUNDS: S2 normal heart sound present OTHER: No lower extremity edema. Left ankle is dressed. GI: COMMON NORMALS: Normal to inspection, nondistended, normoactive bowel sounds present, Soft to palpation and non-tender PALPATION: Yes Soft to palpation Neuro: COMMON NORMALS: patient oriented x3 and no focal motor deficits Data : 03/25/20 08:32 03/25/20 08:32 Micro: Microbiology 03/21/20 12:57 Gram Stain - Final Ankle - Left Tissue Culture - Final Streptococcus Group C 03/21/20 12:57 Gram Stain - Final Ankle - Left Body Fluid Culture - Final Streptococcus Group C A&P Assessment and plan (1) Cellulitis and abscess of left leg: Status: Acute (2) DKA (diabetic ketoacidoses): Status: Acute (3) Substance abuse: Status: Acute (4) Schizophrenia: Status: Acute (5) H/O heart valve replacement with bioprosthetic valve: Status: Acute (6) Diabetes: Status: Acute Qualifiers: Diabetes mellitus type: type 2 Diabetes mellitus complication status: with hyperglycemia (7) Hypertension: Status: Acute (8) Sepsis: Resolved. Status: Acute Qualifiers: Sepsis type: Streptococcus, other Sepsis acute organ dysfunction status: without acute organ dysfunction Qualified Code(s): A40.8 - Other streptococcal sepsis (9) Septic arthritis due to Streptococcus species: With evidence of localized necrotizing fasciitis. Present on admission. Status: Acute Additional A&P Information Sepsis secondary to purulent cellulitis left ankle as well as deep tissue down to fascia, localized necrotizing fasciitis. Symptoms started after IV drug abuse 2 weeks ago Sepsis criteria met with fever, tachypnea, leukocytosis, I will start vancomycin, Zosyn and clindamycin for toxin suppression CT left ankle with contrast to rule out necrotizing fasciitis because excruciating pain, he is high risk for septic joint, Blood cultures, aspirate from the wound to be sent for culture DKA Start regular insulin Criteria met with ketones positive, low bicarb, high blood sugar ABG showing respiratory alkalosis which is a compensation of metabolic acidosis Aggressive fluid resuscitation Check A1c level Patient does not use any medications, he is homeless, he struggling with IV drug abuse 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 DVT prophylaxis I would use SCDs for now in case he would require joint aspiration or further drainage of his purulent cellulitis of left ankle PLAN: Continue ceftriaxone. Plan for patient to be taken back to the OR as per Dr. Manriquez early next week. Attestations Medical Necessity Statement*: Patient with septic arthritis requires close inpatient monitoring and treatment till deemed safe for discharge. Coding Level of Care Code Acute Account Retention Representative for [facility] Diagnoses Cellulitis and abscess of left leg L03.116; L02.416 DKA (diabetic ketoacidoses) E11.10 Substance abuse F19.10 Schizophrenia F20.9 H/O heart valve replacement with bioprosthetic valve Z95.3 Diabetes E11.9 Diabetes mellitus type: type 2 Diabetes mellitus complication status: with hyperglycemia Hypertension I10 Sepsis A40.8 Sepsis type: Streptococcus, other Sepsis acute organ dysfunction status: without acute organ dysfunction Septic arthritis due to Streptococcus species M00.20
[2020-03-25 10:47] LABS: Glucose Point of Care 220 mg/dL (70-110)
[2020-03-25] MEDS: cefTRIAXone 2,000 MG in sodium chloride 0.9% (plus) 50 ML 100 MG IV (12:18)
--- NOTE | 2020-03-25 15:10 | PM.PN ---
Subjective Subjective: Interval history: Mr Hickman is 4 days status post left medial ankle incision and debridement and left ankle arthroscopy with arthrocentesis. Showing improvement. Denies any acute events overnight. States his pain is under control. Tolerating regular diet. Patient denies any subjective nausea, vomiting, fever, chills, shortness of breath or chest pain. Patient's cultures including synovial fluid growing Streptococcus group C. Got frustrated last night and threatened to leave AMA situation was deescalated by nursing staff patient states he is doing well. Vitals/I&O/Wt Last Vital Signs Temp 98.0 F 03/25/20 11:07 Pulse 73 03/25/20 11:07 Resp 18 03/25/20 11:07 BP 117/70 03/25/20 11:07 Pulse Ox 98 03/25/20 11:07 03/25/20 03/25/20 03/25/20 06:59 14:59 22:59 Intake Total 1355 / 3715 2551.667 / 2551.667 Output Total 1200 / 5950 1400 / 1400 Balance 155 / -2235 1151.667 / 1151.667 Physical Exam Narrative: EXAM NARRATIVE: Patient is alert and oriented ?3 and in no acute distress. The following is a focused bilateral lower extremity exam. VASCULAR: Dorsalis pedis and posterior tibial arteries palpable +2 bilaterally. Capillary refill time less than 3 seconds to the distal hallux bilaterally. Calf is supple and nontender proximally and distally. Pedal hair growth present bilaterally. NEUROLOGICAL: Protective sensation intact 10/10 sites, tested with [place] Cat monofilament to bilateral feet. DERMATOLOGICAL: Performed dressing change saline wet-to-dry with Kerlix right medial ankle, incision site measures 16 cm, no purulent drainage, periwound erythema remains, less intense. There is no proximal lymphangitic streaking of the left leg or thigh. Dystrophic toenails 1 through 5 bilaterally. Anterior lateral ankle border incision is well coapted with sutures intact no periincisional erythema, warmth or drainage. Dry cracking skin at the plantar feet bilaterally. No maceration or wound at webspaces 1 through 4 bilaterally. MUSCULOSKELETAL: Tenderness to palpation at the left medial ankle. Muscle strength 5 out of 5 in all 3 cardinal planes without crepitus at the left ankle. Able to wiggle toes on command. Neutral foot type bilaterally. Data : 03/25/20 08:32 03/25/20 08:32 Micro: Microbiology 03/20/20 00:35 Blood Culture - Final Blood Coagulase negativ staphylococc 03/21/20 12:57 Gram Stain - Final Ankle - Left Tissue Culture - Final Streptococcus Group C 03/21/20 12:57 Gram Stain - Final Ankle - Left Body Fluid Culture - Final Streptococcus Group C A&P Assessment and plan (1) Sepsis: Status: Acute Qualifiers: Sepsis type: Streptococcus, other Sepsis acute organ dysfunction status: without acute organ dysfunction Qualified Code(s): A40.8 - Other streptococcal sepsis (2) Cellulitis and abscess of left leg: Status: Acute (3) Substance abuse: Status: Acute Patient is afebrile, no leukocytosis, surgical cultures pending. Continuing empiric IV antibiotics, patient reports improved pain relief. He is 3 day status post incision and debridement left medial ankle wound and left ankle arthroscopy with arthrocentesis. Perform dressing change today packed with saline soaked Kerlix, sterile 4 x 4's, dry Kerlix and Gio wrap. Patient is to keep his left lower extremity elevated while at rest. Left ankle arthrocentesis culture growing strep group C. Clinically left lower extremity is improving with decreased edema, decreased erythema, no purulence on dressing change. Patient will need referral to wound care on discharge. Patient may be weightbearing as tolerated. -Planning on partial primary delayed closure with placement of drain left lower extremity tomorrow at noon 03/26/2020. Patient to be n.p.o. after midnight tonight. Attestations Medical Necessity Statement*: Diabetic foot infection with abscess and cellulitis, sepsis on admission. IV drug abuse. 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
[2020-03-25 16:35] LABS: Glucose Point of Care 198 mg/dL (70-110)
[2020-03-25] MEDS: insulin glargine 100 units/1 mL 20 UNIT SUBCUT (21:57)
[2020-03-25 22:06] LABS: Glucose Point of Care 328 mg/dL (70-110)
[2020-03-26] VITALS (14 sets, daily range): BP systolic 115–152; BP diastolic 72–99; PULSE 61–84; RESP 16–20; TEMP 36.1–36.9; O2SAT 95–100
[2020-03-26 05:52] LABS: Basophils # 0.1 10^3/uL (0.0-0.1); Basophils % 0.7 %; Eosinophils # 0.1 10^3/uL (0.0-0.8); Eosinophils % 0.7 %; Hematocrit 40.5 % (42.0-52.0); Hemoglobin 13.3 g/dL (11.7-16.6); Lymphocytes # 2.4 10^3/uL (0.8-4.8); Lymphocytes % 34.1 %; Mean Corpuscular HGB Conc 32.8 g/dL (30.0-36.0); Mean Corpuscular Hemoglobin 29.7 pg (28.0-34.0); Mean Corpuscular Volume 90.4 fL (80-94); Mean Platelet Volume 9.2 fL (7.4-10.4); Monocytes # 0.4 10^3/uL (0.2-0.9); Monocytes % 5.2 %; Neutrophils # 4.01 10^3/uL (1.8-7.7); Neutrophils % 57.9 %; Nucleated Red Blood Cells % 0 %; Platelet Count 251 10^3/cmm (130-400); Red Blood Count 4.48 10^6/uL (4.1-5.3); Red Cell Distribution Width 11.9 % (12.1-15.1); White Blood Count 6.9 10^3/uL (4.0-10.0)
[2020-03-26 06:15] LABS: Alanine Aminotransferase 24 U/L (0-41); Albumin Level 3.5 g/dL (3.5-5.2); Alkaline Phosphatase 80 IU/L (40-130); Anion Gap 15.2 (5-19); Aspartate Amino Transferase 20 U/L (0-40); Blood Urea Nitrogen 14 mg/dL (6-20); Calcium 9.6 mg/dL (8.5-10.5); Carbon Dioxide 23 mmol/L (22-29); Chloride 103 mmol/L (98-107); Globulin 3.3 g/dL (1.3-4.6); Glomerular Filtration Rate 103.2 mL/min (90-130); Glucose 155 mg/dL (65-115); Osmolality Calculated 288 mOsm/kg (285-295); Potassium 4.2 mmol/L (3.5-5.1); Sodium 137 mmol/L (136-145); Total Bilirubin 0.2 mg/dL (0.15-1.2); Total Protein 6.8 g/dL (6.6-8.7)
[2020-03-26 06:34] LABS: Glucose Point of Care 170 mg/dL (70-110)
--- NOTE | 2020-03-26 07:54 | PM.PN ---
Subjective Subjective: Interval history: Mr Hickman is 5 days status post left medial ankle incision and debridement and left ankle arthroscopy with arthrocentesis. Denies any acute events overnight. Has been n.p.o. since midnight in preparation for surgery today plan for primary delayed closure. Vitals/I&O/Wt Last Vital Signs Temp 97.7 F 03/26/20 04:00 Pulse 73 03/26/20 04:00 Resp 18 03/26/20 04:00 BP 124/88 03/26/20 04:00 Pulse Ox 100 03/26/20 04:00 03/25/20 03/26/20 03/26/20 22:59 06:59 14:59 Intake Total 1000 / 3551.667 Output Total 1075 / 2475 0 / 2475 Balance -75 / 1076.667 0 / 1076.667 Physical Exam Narrative: EXAM NARRATIVE: Patient is alert and oriented ?3 and in no acute distress. The following is a focused bilateral lower extremity exam. VASCULAR: Dorsalis pedis and posterior tibial arteries palpable +2 bilaterally. Capillary refill time less than 3 seconds to the distal hallux bilaterally. Calf is supple and nontender proximally and distally. Pedal hair growth present bilaterally. NEUROLOGICAL: Protective sensation intact 10/10 sites, tested with [place] Cat monofilament to bilateral feet. DERMATOLOGICAL: Performed dressing change saline wet-to-dry with Kerlix right medial ankle, incision site measures 16 cm, no purulent drainage, periwound erythema remains, less intense. There is no proximal lymphangitic streaking of the left leg or thigh. Dystrophic toenails 1 through 5 bilaterally. Anterior lateral ankle border incision is well coapted with sutures intact no periincision erythema, warmth or drainage. Dry cracking skin at the plantar feet bilaterally. No maceration or wound at webspaces 1 through 4 bilaterally. MUSCULOSKELETAL: Tenderness to palpation at the left medial ankle. Muscle strength 5 out of 5 in all 3 cardinal planes without crepitus at the left ankle. Able to wiggle toes on command. Neutral foot type bilaterally. Data : 03/26/20 05:40 03/26/20 05:40 Micro: Microbiology 03/21/20 05:10 Blood Culture - Final Blood NO GROWTH AFTER 5 DAYS 03/21/20 05:07 Blood Culture - Final Blood NO GROWTH AFTER 5 DAYS 03/20/20 00:35 Blood Culture - Final Blood Coagulase negativ staphylococc A&P Assessment and plan (1) Sepsis: Status: Acute Qualifiers: Sepsis acute organ dysfunction status: without acute organ dysfunction Sepsis type: Streptococcus, other Qualified Code(s): A40.8 - Other streptococcal sepsis (2) Cellulitis and abscess of left leg: Status: Acute (3) Substance abuse: Status: Acute Patient is afebrile, no leukocytosis, surgical cultures pending. Continuing empiric IV antibiotics, patient reports improved pain relief. He is 3 day status post incision and debridement left medial ankle wound and left ankle arthroscopy with arthrocentesis. Perform dressing change today packed with saline soaked Kerlix, sterile 4 x 4's, dry Kerlix and Gio wrap. Patient is to keep his left lower extremity elevated while at rest. Left ankle arthrocentesis culture growing strep group C. Clinically left lower extremity is improving with decreased edema, decreased erythema, no purulence on dressing change. Planning on partial primary delayed closure with placement of drain left lower extremity today at noon. Patient has been n.p.o. since midnight. Attestations Medical Necessity Statement*: Diabetic foot infection with abscess and cellulitis, sepsis on admission. IV drug abuse. Coding Level of Care Code Acute Upper Marker for [facility] Diagnoses Sepsis A40.8 Sepsis acute organ dysfunction status: without acute organ dysfunction Sepsis type: Streptococcus, other Cellulitis and abscess of left leg L03.116; L02.416 Substance abuse F19.10
[2020-03-26] MEDS: diphenhydrAMINE 50 mg/mL SDV 1mL 25 MG IVP ×2 (08:15→22:18)
[2020-03-26] MEDS: oxyCODONE 5 mg IR Tab/Cap 10 MG PO ×2 (08:15→17:40)
[2020-03-26] MEDS: sodium chloride 0.9% 1,000 ML 100 ML IV (10:50)
--- NOTE | 2020-03-26 11:26 | ANES.PREANE2 ---
Pre-Anesthetic Assessment Pre-Anesthetic Assessment: Height/Weight: Height 1.73 m Weight 108.862 kg Temp Pulse Resp BP Pulse Ox 97.0 F L 64 18 121/82 98 03/26/20 11:18 03/26/20 11:18 03/26/20 11:18 03/26/20 11:18 03/26/20 11:18 Preop Diagnosis: ankle abcess Proposed Procedure: Operation Date: 03/21/20 12:10 Proposed Procedures p Incision And Drainage left lower extremity with left ankle arthroscopy(Left) - Nicholas Manriquez DPM s Ankle Arthroscopy(Left) - Nicholas Manriquez DPM Operation Date: 03/26/20 12:00 Proposed Procedures p Delayed Wound Closure(Left) - Nicholas Manriquez DPM Operation Date: 03/26/20 12:10 Proposed Procedures p Primary Delayed Wound Closure left lower extremity(Left) - Nicholas Manriquez DPM Familial anesthetic complications: None Was Beta Leonidas taken within 24 hours: Yes Last intake: Intake Last Liquid Date 03/25/20 Last Liquid Time 23:30 Last Solid Date 03/25/20 Last Solid Time 18:00 Social: Social History: Alcohol and Tobacco Comment: IVDA Exam: Pre-Anes Outpt Exam: alert, oriented x 3, clear to auscultation bilaterally and regular rate & rhythm Airway: Cervical ROM: WNL MP: 1 Dentition: False Hepatic: Hepatic: Hepatitis (C) Metabolic: Metabolic: DM Musc/skel: Musc/skel: OA/DJD Neuropsych: Neuropsych: Anxiety Anesthetic Plan: ASA status: 3 Anesthesia: MAC Risk of > 500 ml blood loss (7ml/kg in children): No Meds/Allergies Current Medications: Current Medications Generic Name Dose Route Start Last Admin Trade Name Freq PRN Reason Stop Dose Admin Acetaminophen 650 mg 03/20/20 05:56 03/20/20 20:57 Tylenol PO 650 mg Q4H PRN Administration FEVER Diphenhydramine HC l 25 mg 03/21/20 20:52 03/26/20 08:15 Benadryl IVP 25 mg Q12H PRN Administration ITCHING Sodium Chloride 1,000 mls @ 100 m ls/hr 03/20/20 05:56 03/26/20 10:50 Sodium Chloride 0.9% IV 100 mls/hr .Q10H ROMA Administration Ceftriaxone Sodium 2,000 mg/ 50 mls @ 100 mls/ hr 03/24/20 11:30 03/25/20 12:18 Sodium Chloride IV 100 mls/hr Q24H ROMA Administration Protocol Insulin Aspart 0 unit 03/20/20 08:00 03/26/20 08:12 Novolog SUBCUT 6 unit WM&BEDTIME ROMA Administration Protocol Insulin Glargine 20 unit 03/21/20 21:00 03/25/20 21:57 Lantus SUBCUT 20 unit BEDTIME ROMA Administration Oxycodone HCl 10 mg 03/23/20 09:07 03/26/20 08:15 Oxycodone Ir PO 10 mg Q8H PRN Administration SEVERE PAIN Senna/Docusate Sod ium 1 tab 03/22/20 09:00 03/26/20 08:12 Senna-S PO Not Given DAILY ROMA PFSH Anesthesia PFSH: Medical History Bowel obstruction CAD (coronary artery disease) Diabetes Hepatitis C History of bacterial endocarditis Hypertension Surgical History History of aortic valve replacement with bioprosthetic valve History of heart valve replacement History of mitral valve replacement with bioprosthetic valve Family History Other No significant family history Social History (Updated 03/19/20 @ 22:50 by Kelly Szymanski MD) Smoking and tobacco status: never smoked Alcohol intake: never Housing: Other Details: Homeless Data Anesthesia CBC & Chem 7: 03/26/20 05:40 03/26/20 05:40 Other Labs: Laboratory Results - last 48 hr 03/24/20 03/24/20 03/24/20 12:29 16:53 20:03 WBC RBC Hgb Hct MCV MCH MCHC RDW Plt Count MPV Neut % (Auto) Lymph % (Auto) [place] % (Auto) Eos % (Auto) Baso % (Auto) Neut # (Auto) Lymph # (Auto) [place] # (Auto) Eos # (Auto) Baso # (Auto) Nucleated RBC % (auto) Nucleated RBCs # Sodium Potassium Chloride Carbon Dioxide Anion Gap BUN Creatinine GFR Calculation Glucose POC Glucose 137 194 202 Calculated Osmolality Calcium Total Bilirubin AST ALT Alkaline Phosphatase Total Protein Albumin Globulin 03/25/20 03/25/20 03/25/20 06:29 08:32 08:32 WBC 6.2 RBC 4.97 Hgb 14.5 Hct 43.5 MCV 87.5 MCH 29.2 MCHC 33.3 RDW 11.9 L Plt Count 255 MPV 9.3 Neut % (Auto) 60.4 Lymph % (Auto) 31.8 [place] % (Auto) 5.6 Eos % (Auto) 0.8 Baso % (Auto) 0.3 Neut # (Auto) 3.76 Lymph # (Auto) 2.0 [place] # (Auto) 0.4 Eos # (Auto) 0.1 Baso # (Auto) 0.0 Nucleated RBC % (auto) 0 Nucleated RBCs # 0.0 Sodium 136 Potassium 4.3 Chloride 101 Carbon Dioxide 22 Anion Gap 17.3 BUN 12 Creatinine 0.6 L GFR Calculation 143.8 H Glucose 244 H POC Glucose 231 Calculated Osmolality 290 Calcium 9.5 Total Bilirubin 0.2 AST 22 ALT 22 Alkaline Phosphatase 81 Total Protein 7.3 Albumin 3.6 Globulin 3.7 03/25/20 03/25/20 03/25/20 10:36 16:29 20:40 WBC RBC Hgb Hct MCV MCH MCHC RDW Plt Count MPV Neut % (Auto) Lymph % (Auto) [place] % (Auto) Eos % (Auto) Baso % (Auto) Neut # (Auto) Lymph # (Auto) [place] # (Auto) Eos # (Auto) Baso # (Auto) Nucleated RBC % (auto) Nucleated RBCs # Sodium Potassium Chloride Carbon Dioxide Anion Gap BUN Creatinine GFR Calculation Glucose POC Glucose 220 198 328 Calculated Osmolality Calcium Total Bilirubin AST ALT Alkaline Phosphatase Total Protein Albumin Globulin 03/26/20 03/26/20 03/26/20 05:40 05:40 06:22 WBC 6.9 RBC 4.48 Hgb 13.3 Hct 40.5 L MCV 90.4 MCH 29.7 MCHC 32.8 RDW 11.9 L Plt Count 251 MPV 9.2 Neut % (Auto) 57.9 Lymph % (Auto) 34.1 [place] % (Auto) 5.2 Eos % (Auto) 0.7 Baso % (Auto) 0.7 Neut # (Auto) 4.01 Lymph # (Auto) 2.4 [place] # (Auto) 0.4 Eos # (Auto) 0.1 Baso # (Auto) 0.1 Nucleated RBC % (auto) 0 Nucleated RBCs # 0.0 Sodium 137 Potassium 4.2 Chloride 103 Carbon Dioxide 23 Anion Gap 15.2 BUN 14 Creatinine 0.8 GFR Calculation 103.2 Glucose 155 H POC Glucose 170 Calculated Osmolality 288 Calcium 9.6 Total Bilirubin 0.2 AST 20 ALT 24 Alkaline Phosphatase 80 Total Protein 6.8 Albumin 3.5 Globulin 3.3 Micro: Microbiology 03/21/20 05:10 Blood Culture - Final Blood NO GROWTH AFTER 5 DAYS 03/21/20 05:07 Blood Culture - Final Blood NO GROWTH AFTER 5 DAYS 03/20/20 00:35 Blood Culture - Final Blood Coagulase negativ staphylococc Cardiac Studies: No Data to Display
[2020-03-26] MEDS: sodium chloride 0.9% 1,000 ML 30 ML IV (11:29)
--- NOTE | 2020-03-26 12:12 | PM.PN ---
Subjective Subjective: Interval history: Patient resting comfortably at time of exam. He reported some continued pain in his left ankle. Long discussion with him about IV drug use and the recommendation for cessation and continued outpatient drug rehabilitation, he verbalized understanding and agreed with plan. Discussed with him concern for his prior endocarditis and requiring open heart valve replacement along with infection in his foot due to IV drug use, he verbalized understanding Vitals/I&O/Wt Last Vital Signs Temp 97.0 F L 03/26/20 11:18 Pulse 64 03/26/20 11:18 Resp 18 03/26/20 11:18 BP 121/82 03/26/20 11:18 Pulse Ox 98 03/26/20 11:18 03/25/20 03/26/20 03/26/20 22:59 06:59 14:59 Intake Total 1000 / 3551.667 1000 / 1000 Output Total 1075 / 2475 0 / 2475 Balance -75 / 1076.667 0 / 9036.906 8902 / 1000 Physical Exam Const: COMMON NORMALS: patient oriented x3 and alert GENERAL APPEARANCE: cooperative ORIENTATION/CONSCIOUSNESS: Yes awake, Yes oriented to person, Yes oriented to place and Yes oriented to time HENMT: COMMON NORMALS: normocephalic and atraumatic HEAD & SCALP: normocephalic and atraumatic Eye: COMMON NORMALS: Equal, round and reactive pupils present PUPIL: Yes Equal, round and reactive pupils present Neck/C-Spine: COMMON NORMALS: supple GENERAL: Yes normal visual inspection Resp: COMMON NORMALS: normal respiratory effort and clear to auscultation bilaterally EFFORT & INSPECTION: Yes able to speak in complete sentences AUSCULTATION: clear to auscultation bilaterally, no rhonchi and no wheezes Cardio: COMMON NORMALS: regular rate and regular rhythm RATE: regular rate RHYTHM: regular rhythm OTHER: Systolic murmur GI: COMMON NORMALS: Soft to palpation INSPECTION: No abdominal distension PALPATION: Yes Soft to palpation Extremity: NARRATIVE EXTREMITY EXAM: Left postoperative dressing in place in the left foot/ankle Neuro: COMMON NORMALS: patient oriented x3, CN's II-XII intact bilaterally, moves all extremities and no focal motor deficits SENSORIUM/ORIENTATION: Yes alert, Yes oriented to person, Yes oriented to place and Yes oriented to time SPEECH: speech normal Psych: COMMON NORMALS: cooperative OTHER: Anxious, restless Skin: OTHER: Postoperative dressing in place in the left lower extremity Data : 03/26/20 05:40 03/26/20 05:40 Micro: Microbiology 03/21/20 05:10 Blood Culture - Final Blood NO GROWTH AFTER 5 DAYS 03/21/20 05:07 Blood Culture - Final Blood NO GROWTH AFTER 5 DAYS 03/20/20 00:35 Blood Culture - Final Blood Coagulase negativ staphylococc A&P Assessment and plan (1) Cellulitis and abscess of left leg: Status post debridement on 03/21/2020. Plan for patient to go to the OR again today on 03/26/2020 Appreciate podiatry consultation, Dr. Manriquez Patient admits to IV drug use and shooting up into the left ankle. Long discussion with patient today about the need for continued rehabilitation and cessation from illicit drug use. Continue on IV antibiotics at this time, culture showing strep Localized necrotizing fasciitis. Status: Acute (2) DKA (diabetic ketoacidoses): DKA resolved On Lantus 20 units at bedtime, sliding scale insulin as needed Status: Acute (3) Substance abuse: Case management consultation for outpatient information on alcohol and drug rehabilitation Status: Acute (4) Schizophrenia: Status: Acute (5) H/O heart valve replacement with bioprosthetic valve: History of infective endocarditis due to IV drug use Status: Acute (6) Diabetes: DKA resolved, further plan as above Status: Acute Qualifiers: Diabetes mellitus type: type 2 Diabetes mellitus complication status: with hyperglycemia (7) Hypertension: Blood pressures well controlled at this time. Status: Acute (8) Sepsis: Resolved. Status: Acute Qualifiers: Sepsis type: Streptococcus, other Sepsis acute organ dysfunction status: without acute organ dysfunction Qualified Code(s): A40.8 - Other streptococcal sepsis (9) Septic arthritis due to Streptococcus species: With evidence of localized necrotizing fasciitis. Present on admission. Status: Acute Additional A&P Information History of suicidal ideation in the past resuscitated NPU visit No active suicidal ideation CODE STATUS: Full code Diet: N.p.o. DVT prophylaxis: SCDs, no pharmacologic prophylaxis due to anticipated surgery today Attestations Medical Necessity Statement*: Patient requires further hospitalization due to cellulitis and abscess of the left leg requiring further surgical debridement. Coding Level of Care Code Acute Aircraft Navigator for [facility] Diagnoses Cellulitis and abscess of left leg L03.116; L02.416 DKA (diabetic ketoacidoses) E11.10 Substance abuse F19.10 Schizophrenia F20.9 H/O heart valve replacement with bioprosthetic valve Z95.3 Diabetes E11.9 Diabetes mellitus type: type 2 Diabetes mellitus complication status: with hyperglycemia Hypertension I10 Sepsis A40.8 Sepsis type: Streptococcus, other Sepsis acute organ dysfunction status: without acute organ dysfunction Septic arthritis due to Streptococcus species M00.20
--- NOTE | 2020-03-26 12:54 | PM.OP ---
Operative Report Date of procedure: March 26, 2020 Pre-op Diagnosis: Diabetic foot infection with abscess and cellulitis left lower extremity. Post-op diagnosis: same Procedure Done: Primary delayed closure left lower extremity CPT code 73394 Implants: 4-0 nylon Specimens removed/disposition: None Pathology: none sent Surgeon: Nicholas Manriquez D.P.M. [employer] Program Coordinator: Roddy Anesthesia: MAC Estimated blood loss: 10 mL Tourniquet time: See intraoperative documentation IV fluids: None Urine output: None Complications: None Findings: Improved soft tissue quality amenable to delayed closure Condition: stable Disposition: floor Brief History: IV drug abuse with injection of methamphetamine at the left ankle subsequent abscess and cellulitis was septic on admission and performed I&D and ankle arthroscopy. Has been on empiric IV vancomycin and Zosyn with improvement of soft tissue with recommendation of primary delayed closure patient is agreeable. Risks include pain, bleeding, numbness, infection, dehiscence, need for further surgical intervention, need for further antibiotic therapy, damage to adjacent soft tissue structures, swelling and bruising. Patient is agreeable wishes to proceed with seen in preop has been n.p.o. since midnight informed consent signed left lower extremity identified and marked. No guarantees written, expressed or implied. Procedure: Under mild sedation the patient was brought to the operating room and placed on the operating table in supine position. A timeout was performed. Anesthesia was then administered by the anesthesia service. Local anesthesia injected by myself consisting of 15 cc of 0.5% Marcaine plain and a proximal left ankle block fashion. Well-padded pneumatic tourniquet applied high calf, left lower extremity. Left lower extremity was scrubbed, prepped and draped utilizing normal aseptic technique. Left foot was elevated and tourniquet inflated to 250 mmHg. Attention was directed to the left medial ankle where the wound was explored utilizing blunt dissection both margins were undermined to allow approximation of soft tissue margin. Biofilm was debrided along with freshening of soft tissue margin original wound. Wound was irrigated with copious amounts of saline irrigation. Wound was further explored and divided of all devitalized soft tissue did not extend down to bone was able to visualize extensor retinaculum and crural retinaculum and fascia. No remaining devitalized tissue appreciated, margins were required to be undermined to get approximation without strangulation wound was then closed utilizing 3-0 nylon. Incision site was dressed with Adaptic, sterile 4 x 4's, Kerlix and Gio wrap postop shoe was applied. Tourniquet was deflated and a prompt hyperemic response was noted to the distal digits of the left foot.
--- NOTE | 2020-03-26 13:07 | SUR.PHASEI ---
PT AWAKE ALERT EATING ICE CHIPS PT WAS ONLY A MAC SEDATION, VSS IV PATENT , LT FOOT WOUND CLOSED SOFT DRESSING AND SHOE D/I DISTAL TOES PINK WARM.
--- NOTE | 2020-03-26 13:31 | SUR.PHASEI ---
4325 PT TO ROOM MOVES SELF TO BED PT VERY TALKATIVE TO NURSES WANTS FOOD AND PAIN MED PT LAUGHING AND JOKING,.
[2020-03-26 13:38] LABS: Glucose Point of Care 154 mg/dL (70-110)
--- NOTE | 2020-03-26 13:50 | PM.PACU ---
PACU note Post-Anesthesia Exam: awake and vital signs stable Disposition: back to floor
[2020-03-26] MEDS: acetaminophen 325 mg Tablet 650 MG PO (14:57)
[2020-03-26 17:32] LABS: Glucose Point of Care 305 mg/dL (70-110)
[2020-03-26 21:56] LABS: Glucose Point of Care 240 mg/dL (70-110)
[2020-03-26] MEDS: insulin glargine 100 units/1 mL 20 UNIT SUBCUT (22:15)
[2020-03-27] VITALS (8 sets, daily range): BP systolic 118–153; BP diastolic 76–89; PULSE 68–89; RESP 18–20; TEMP 36.4–36.9; O2SAT 97–100
[2020-03-27] MEDS: sodium chloride 0.9% 1,000 ML 100 ML IV ×2 (00:42→11:02)
[2020-03-27 03:02] LABS: Basophils % 0.5 %; Eosinophils # 0.1 10^3/uL (0.0-0.8); Eosinophils % 0.8 %; Hematocrit 41.4 % (42.0-52.0); Hemoglobin 13.4 g/dL (11.7-16.6); Lymphocytes # 2.4 10^3/uL (0.8-4.8); Lymphocytes % 35.7 %; Mean Corpuscular HGB Conc 32.4 g/dL (30.0-36.0); Mean Corpuscular Hemoglobin 29.6 pg (28.0-34.0); Mean Corpuscular Volume 91.6 fL (80-94); Mean Platelet Volume 9.4 fL (7.4-10.4); Monocytes # 0.4 10^3/uL (0.2-0.9); Monocytes % 5.8 %; Neutrophils # 3.69 10^3/uL (1.8-7.7); Nucleated Red Blood Cells % 0 %; Platelet Count 240 10^3/cmm (130-400); Red Blood Count 4.52 10^6/uL (4.1-5.3); White Blood Count 6.6 10^3/uL (4.0-10.0)
[2020-03-27 03:24] LABS: Blood Urea Nitrogen 15 mg/dL (6-20); Calcium 9.5 mg/dL (8.5-10.5); Carbon Dioxide 23 mmol/L (22-29); Chloride 105 mmol/L (98-107); Glomerular Filtration Rate 103.2 mL/min (90-130); Glucose 154 mg/dL (65-115); Osmolality Calculated 288 mOsm/kg (285-295); Sodium 137 mmol/L (136-145)
[2020-03-27 03:27] LABS: Anion Gap 13.3 (5-19); Potassium 4.3 mmol/L (3.5-5.1)
[2020-03-27] MEDS: oxyCODONE 5 mg IR Tab/Cap 10 MG PO ×2 (04:10→16:20)
[2020-03-27 06:47] LABS: Glucose Point of Care 167 mg/dL (70-110)
[2020-03-27] MEDS: sennosides-docusate Tablet 1 TAB PO (08:24)
--- NOTE | 2020-03-27 09:56 | ANE.PACU2 ---
Inpatient post-anesthesia follow up: Airway intact: Yes Vital signs: Temperature 98.2 F Pulse Rate [Apical ] 121 Pulse Rate 68 Respiratory Rate 18 Blood Pressure 118/76 Pulse Oximetry 98 Oxygen Delivery Me thod Room Air Oxygen Flow Rate 8 Fraction of Inspir ed Oxygen Hydration adequate: Yes Nausea and vomiting: No Pain level: 1 Mental status: Baseline
[2020-03-27 11:21] LABS: Glucose Point of Care 203 mg/dL (70-110)
[2020-03-27] MEDS: cefTRIAXone 2,000 MG in sodium chloride 0.9% (plus) 50 ML 100 MG IV (11:55)
--- NOTE | 2020-03-27 12:10 | PM.PN ---
Subjective Subjective: Interval history: Mr Hickman is 6 days status post left medial ankle incision and debridement and left ankle arthroscopy with arthrocentesis and 1 day status post primary delayed closure left lower extremity. Denies any acute events overnight. Had an uptake in pain postoperatively states that it is under control at this time. Tolerating regular diet. Patient denies any subjective nausea, vomiting, fever, chills, shortness of breath or chest pain. Vitals/I&O/Wt Last Vital Signs Temp 97.9 F 03/27/20 11:09 Pulse 74 03/27/20 11:09 Resp 18 03/27/20 11:09 BP 137/80 03/27/20 11:09 Pulse Ox 98 03/27/20 11:09 03/26/20 03/27/20 03/27/20 22:59 06:59 14:59 Intake Total 1480 / 2720 1600 / 1600 Output Total 400 / 400 2300 / 2700 1375 / 1375 Balance 1080 / 2320 -2300 / 20 225 / 225 Physical Exam Narrative: EXAM NARRATIVE: Patient is alert and oriented ?3 and in no acute distress. The following is a focused bilateral lower extremity exam. VASCULAR: Dorsalis pedis and posterior tibial arteries palpable +2 bilaterally. Capillary refill time less than 3 seconds to the distal hallux bilaterally. Calf is supple and nontender proximally and distally. Pedal hair growth present bilaterally. NEUROLOGICAL: Protective sensation intact 10/10 sites, tested with Burke Cat monofilament to bilateral feet. DERMATOLOGICAL: No strikethrough postoperative dressings. Postop dressings were taken down incision site is well coapted sutures are intact without dehiscence, very mild localized erythema without proximal lymphangitic streaking this is improved since last visit. No purulent drainage. No other sores or lesions noted. MUSCULOSKELETAL: Tenderness to palpation at the left medial ankle. Muscle strength 5 out of 5 in all 3 cardinal planes without crepitus at the left ankle. Able to wiggle toes on command. Neutral foot type bilaterally. Data : 03/27/20 02:29 03/27/20 02:29 A&P Assessment and plan (1) Sepsis: Status: Acute Qualifiers: Sepsis acute organ dysfunction status: without acute organ dysfunction Sepsis type: Streptococcus, other Qualified Code(s): A40.8 - Other streptococcal sepsis (2) Cellulitis and abscess of left leg: Status: Acute (3) Substance abuse: Status: Acute Patient is afebrile, no leukocytosis, surgical cultures pending. Continuing empiric IV antibiotics, patient reports improved pain relief. He is 6 days status post incision and debridement left medial ankle wound and left ankle arthroscopy with arthrocentesis. He is 1 day status post primary delayed closure to the left lower extremity incision remains well coapted with sutures intact, significant improvement clinically with decreased erythema, decreased pain and decreased edema. Deep tissue cultures of left ankle wound as well as arthrocentesis of left ankle arthroscopically significant for strep group C cultures finalized. Recommending infectious disease consultation for antibiotic regimen on discharge. Patient okay for discharge from podiatry standpoint no further surgical intervention anticipated during this hospitalization. Minimal weightbearing as tolerated to the left lower extremity otherwise elevate left foot while at rest. Follow-up in podiatry clinic next week April 02, 2020 11:45 AM. Attestations Medical Necessity Statement*: Diabetic foot infection with abscess and cellulitis, sepsis on admission. IV drug abuse. 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
--- NOTE | 2020-03-27 15:38 | PC.SOCIAL ---
Spoke with Dr Rivas and patient will need Zyvoxx at [place]. Called pharmacy and through [employer]B plan since self pay will be $32.49. Updated [address] Rivas. Called nurse Sveta and let her know patient will need meds to beds and preferred pharmacy is already listed as [facility]. She will watch for DC orders and make sure meds are provided before pharmacy closes.
[2020-03-27] MEDS: diphenhydrAMINE 50 mg/mL SDV 1mL 25 MG IVP (16:21)
--- NOTE | 2020-03-27 17:21 | PM.DCS ---
Discharge Providers Date of Admission: 03/19/20 23:58 Date of Discharge: March 28, 2020 Attending Provider at Admission: Kelly Szymanski MD Attending Provider at Discharge: Carolee Rivas Diagnoses at Discharge Discharge Diagnosis (1) Sepsis: Status: Acute Qualifiers: Sepsis type: Streptococcus, other Sepsis acute organ dysfunction status: without acute organ dysfunction Qualified Code(s): A40.8 - Other streptococcal sepsis (2) Cellulitis and abscess of left leg: Status: Acute (3) Substance abuse: Status: Acute Reason for Visit Reason for Visit: ABSCESS ON ANKLE Hospital Course Hospital Course: 50 year old male who has 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 Patient is stating that he is homeless, does not take any medications however he has been prescribed Lantus 15 units on previous admission, he has been using IV methamphetamine, he tried to administer methamphetamine through veins around left ankle about 2 weeks ago, since then left ankle has been painful, he has been noticing swelling which has gradually gotten worse, color of the skin has changed, now he is in excruciating pain which prompted his visit to the ER. Is denying vomiting, chest pain, fever. Diagnosis in the ER revealed DKA, sepsis, I have initiated vancomycin, Zosyn, sepsis fluid bolus, requested left ankle CT scan, massive amount of purulent drainage after incision and drainage in the ER. Upon admisison podiatry was consulted. On 03/21/2020 patient was taken for a incision and debridement of left ankle wound with arthroscopy. This showed devitalized tissue down to myofascial layer medial aspect of left ankle. No devitalized tissue or signs of septic joint at the left ankle via arthroscopy. Antibiotics were de-escalated to rocephin. Wound culture grew streptococcus group c. Initial blood culture on 03/20 grew coagulase negative staphylococcus. Repeat blood culture on 03/21 were negative. Patient was cleared for discharge from podiatry standpoint. Due to deep wound patient was prescribed zyvox 600 mg PO BID for an additional 2 week post discharge. Follow up was arranged with wound care, pcp and podiatry. Physical Exam Narrative: EXAM NARRATIVE: General: alert, awake oriented x 3, NAD S1, S2 tachycardia Clear to auscultation bilaterally Abdomen soft nondistended bowel sound present Left ankle - post op dressing - see podiatry note Right ankle is normal Neurologically no focal deficit Discharge Data Data Completed and Pending: Completed Studies During Hospitalization Category Date Time Status CT angio chest PE protcl [id number] Rout ine Cat Scan 03/20/20 07:[address] ankle LT w con [id number] Stat Cat Scan 03/19/20 22:40 Completed XR ankle LT min 3 V* [id number] Stat Exams 03/19/20 18:32 Completed Vitals: Last Vital Signs Temp 98.5 F 03/27/20 16:09 Pulse 77 03/27/20 16:09 Resp 20 H 03/27/20 16:20 BP 153/76 03/27/20 16:09 Pulse Ox 100 03/27/20 16:09 Discharge Plan Discharge Patient Disposition: Home Condition: Stable Prescriptions: New Lantus Solostar U-100 Insulin 100 unit/mL (3 mL) insulin pen 20 unit SUBCUT QPM 30 Days Qty: 6 RF: 0 Zyvox 600 mg tablet 600 mg PO BID 14 Days Qty: 28 RF: 0 Continued trazodone 50 mg Tablet 50 mg PO BEDTIME PRN (Reason: Sleep) 30 Days Qty: 30 RF: 1 Discontinued propranolol 20 mg Tablet 20 mg PO TID 30 Days Qty: 90 RF: 1 hydroxyzine pamoate 25 mg Capsule 50 mg PO Q6H PRN (Reason: Anxiety) 30 Days Qty: 180 RF: 1 aripiprazole 30 mg Tablet 15 mg PO DAILY 30 Days Qty: 30 RF: 1 Discharge Orders: Discharge Order (Routine); Ordered 03/27/20 Ordered By: Carolee Rivas Referrals: Nba Rascon MD [Physician] - 03/30/20 1:30 pm Nicholas Manriquez DPM [Physician] - 04/02/20 11:45 am () Discharge Diet: Advance as tolerated Discharge Activity: Increase activity as tolerated Patient Instructions: Trazodone (By mouth), Insulin Glargine (Injection), Cellulitis (DC), Diabetic Ketoacidosis (DC), Sepsis (DC) Discharge Date/Time: 03/27/20 17:02 Discharge Attestations Time Spent in Discharge Care*: greater than 30 min Quality Metrics Clinical Quality Measures During this hospital stay, did patient experience: None Coding Level of Care Code 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
== END 2020-03-27 17:02 | disposition home or self-care (01) | DRG 853 ==
LOC: ER 21:05 → MEDSURG 03-20 03:15
PROVIDERS: Emergency Medicine; Family Medicine; Internal Medicine; Physician Assistant; Podiatrist Foot & Ankle Surgery; Admitting Provider Internal Medicine; Visit Provider Hospitalist
PROC: 0SBG0ZZ Excision of Left Ankle Joint, Open Approach (ICD-10-PCS; principal; 2020-03-21 12:00)
PROC: 0SBG0ZZ Excision of Left Ankle Joint, Open Approach (ICD-10-PCS; 2020-03-21 12:00)
PROC: 0JQR3ZZ Repair Left Foot Subcutaneous Tissue and Fascia, Percutaneous Approach (ICD-10-PCS; CPT 13160; principal; 2020-03-26 12:00)
DX: A41.9 Sepsis, unspecified organism (principal); E11.10 Type 2 diabetes mellitus with ketoacidosis without coma; M72.6 Necrotizing fasciitis; L03.116 Cellulitis of left lower limb; L02.416 Cutaneous abscess of left lower limb; M00.272 Other streptococcal arthritis, left ankle and foot; Z95.3 Presence of xenogenic heart valve; Z79.4 Long term (current) use of insulin; Z59.0 Homelessness; I25.10 Atherosclerotic heart disease of native coronary artery without angina pectoris; B19.20 Unspecified viral hepatitis C without hepatic coma; I10 Essential (primary) hypertension; F15.10 Other stimulant abuse, uncomplicated; F20.9 Schizophrenia, unspecified; B95.5 Unspecified streptococcus as the cause of diseases classified elsewhere
CPT/HCPCS: 10060; 12345; 36415; 36416; 36600; 71275; 73610; 73701; 80048; 80051; 80053; 80202; 81003; 82009; 82810; 82962; 83036; 83986; 85007; 85025; 85651; 86140; 87040; 87070; 87075; 87176; 87205; 87426; 90471; 90686; 96372; 96375; 99283; J0696; J1170; J1200; J1815 ×2; J2060; J2250; J2270; J2405; J2543; J2704; J3010; J3370; J3490; J7030; J7040; J7050; Q9967

== ENCOUNTER 2020-07-11 11:23 | Inpatient (IN) | payer MEDICAID, SELFPAY ==
[2020-07-11] VITALS (9 sets, daily range): BP systolic 126–152; BP diastolic 67–93; PULSE 56–100; RESP 18–20; TEMP 36.1–36.7; O2SAT 94–99; BMI 34.2
--- NOTE | 2020-07-11 11:31 | ECG_ITS ---
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 Measurements Intervals [place] Rate: 59 P: 16 WV: 169 QRS: 31 QRSD: 103 T: 71 QT: 401 QTc: 399 Interpretive Statements SINUS BRADYCARDIA Compared to ECG 10/28/2018 19:51:12 Sinus rhythm no longer present Electronically Signed On 07-11-2020 11:46:30 [employer]. [employer] SYSTEM ADMINISTRATOR by Radha Byrne M.D. [email or web address]
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
[2020-07-11] MEDS: LORazepam 1 mg Tablet PO (11:41)
[2020-07-11 11:49] LABS: Basophils % 0.4 %; Eosinophils % 0.2 %; Hematocrit 39.8 % (42.0-52.0); Hemoglobin 13.6 g/dL (11.7-16.6); Lymphocytes # 1.1 10^3/uL (0.8-4.8); Lymphocytes % 22.7 %; Mean Corpuscular HGB Conc 34.2 g/dL (30.0-36.0); Mean Corpuscular Hemoglobin 29.6 pg (28.0-34.0); Mean Corpuscular Volume 86.7 fL (80-94); Mean Platelet Volume 9.9 fL (7.4-10.4); Monocytes # 0.3 10^3/uL (0.2-0.9); Monocytes % 5.4 %; Neutrophils # 3.44 10^3/uL (1.8-7.7); Neutrophils % 71.1 %; Nucleated Red Blood Cells % 0 %; Platelet Count 206 10^3/cmm (130-400); Red Blood Count 4.59 10^6/uL (4.1-5.3); Red Cell Distribution Width 13.2 % (12.1-15.1); White Blood Count 4.8 10^3/uL (4.0-10.0)
[2020-07-11 11:58] LABS: Add Urine Microscopic? YES; Bilirubin Urine Neg (Negative); Blood Urine Trace (Negative); Glucose Urine UA 2+ (Normal); Ketones Urine Negative (Negative); Leukocyte Esterase Urine Negative (Negative); Nitrate Urine Positive (Negative); Protein Urine 1+ (Negative); Urine Appearance Clear (CLEAR); Urine Color Yellow (Yellow); Urobilinogen Urine 1 mg/dL (Negative); pH Urine 5 (5-7)
[2020-07-11 11:59] LABS: Add Urine Culture? No; Bacteria Urine TRACE /hpf; Mucus Urine 1+ /hpf; RBC Urine 0-4 /hpf (0-2); Squamous Epithelial Cell Urine 0-4 /hpf (0-5)
[2020-07-11 12:13] LABS: Alanine Aminotransferase 17 U/L (0-41); Albumin Level 4.1 g/dL (3.5-5.2); Alkaline Phosphatase 80 IU/L (40-130); Aspartate Amino Transferase 13 U/L (0-40); Blood Urea Nitrogen 13 mg/dL (6-20); Calcium 9.1 mg/dL (8.5-10.5); Carbon Dioxide 20 mmol/L (22-29); Chloride 103 mmol/L (98-107); Creatinine Clr Calc Pharmacy 149.4328; Globulin 3.1 g/dL (1.3-4.6); Glomerular Filtration Rate 120.4 mL/min (90-130); Glucose 274 mg/dL (65-115); Osmolality Calculated 290 mOsm/kg (285-295); Sodium 135 mmol/L (136-145); Thyroid Stimulating Hormone 1.74 uIU/mL (0.27-4.20); Total Bilirubin 0.2 mg/dL (0.15-1.2); Total Protein 7.2 g/dL (6.6-8.7)
[2020-07-11 12:15] LABS: Acetaminophen < 5.0 ug/mL (10-30); Alcohol Level < 10 mg/dL (0-10); Salicylate < 0.3 mg/dL (3-10)
[2020-07-11 12:16] LABS: Amphetamines Screen Urine Negative (Negative); Barbiturates Screen Urine Negative (Negative); Benzodiazepines Screen Urine Negative (Negative); Cocaine Screen Urine Negative (Negative); Opiate Screen Urine Negative (Negative); PCP Screen Urine Negative (Negative); THC Screen Urine Positive (Negative)
[2020-07-11] MEDS: ciprofloxacin 500 mg Tablet PO (13:54)
[2020-07-11] MEDS: hyDROXYzine 25 mg Capsule 50 MG PO (15:38)
[2020-07-11] MEDS: OLANZapine 5 mg ODT PO (16:29)
[2020-07-11 20:15] LABS: Glucose Point of Care 171 mg/dL (70-110)
[2020-07-12 06:00] VITALS: BP 143/98; PULSE 65; RESP 17; TEMP 36.3; O2SAT 95
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
[2020-07-12 11:53] LABS: Estmated Average Glucose 177; Hemoglobin A1C 7.8 % (4.0-6.0)
[2020-07-12] MEDS: escitalopram 10 mg Tablet PO (12:24)
--- NOTE | 2020-07-12 13:11 | PM.CONSULT ---
Providers/Reason For Consult Consulting Physican/Specialty*: Khari Miranda MD, hospitalist Reason for Consult*: Diabetes care Attending Physician: Raoul Quiles DO History of Present Illness History of Present Illness Shree Hickman is a 50 year old male who presented to the neuropsychiatric unit secondary to severe depression. Patient reports he has diabetes but has not taken any medicine for it in the last 2 weeks. He normally takes 10 units of insulin, for which she cannot tell me the type twice a day. He states he has been on some metoprolol in the past for his heart. He denies any chest pain or shortness of breath. Review of Systems General: Reports: 10 or more systems reviewed and unremarkable except in HPI and below Const: Denies: fever(s) Eyes: Denies: change in vision ENMT: Denies: throat pain Card: Denies: chest pain Resp: Denies: dyspnea GI: Denies: abdominal pain : Denies: flank pain Musc: Denies: neck pain Skin/Breast: Denies: rash Neuro: Denies: headache(s) Psych: Denies: anxiety Endo: Denies: polyuria [place]/Lymph: Denies: easy bruising All/Imm: Denies: urticaria Meds/Allergies Home Medications and Allergies Home Medications Medication Instructions Recorded Confirmed Last Taken Type No Known Home Medications 07/11/20 07/11/20 Unknown History Allergies Allergy/AdvReac Type Severity Reaction Status Date / Time No Known Allergies Allergy Verified 04/02/20 11:29 Current Medications Current Medications Generic Name Dose Route Start Last Admin Trade Name Freq PRN Reason Stop Dose Admin Escitalopram Oxalate 10 mg 07/12/20 11:00 07/12/20 12:24 Escitalopram 10 Mg Tablet PO 10 mg DAILY ROMA Administration Hydroxyzine Pamoate 50 mg 07/11/20 15:31 07/11/20 15:38 Hydroxyzine 25 Mg Capsule PO 50 mg Q6H PRN Administration ANXIETY Olanzapine 5 mg 07/11/20 15:31 07/11/20 16:29 Olanzapine 5 Mg Odt PO 5 mg Q4H PRN Administration Agitation/Psychosis PFSH Acute PFSH: Medical History Bowel obstruction CAD (coronary artery disease) Diabetes Hepatitis C History of bacterial endocarditis Hypertension Surgical History History of aortic valve replacement with bioprosthetic valve History of heart valve replacement History of mitral valve replacement with bioprosthetic valve Family History (Updated 07/12/20 @ 13:14 by Khari Miranda MD) Other Diabetes No significant family history Social History Smoking and tobacco status: never smoked Alcohol intake: current Alcohol intake frequency: holidays/special occasions only Housing: Other Details: Homeless Current occupational status: unemployed Vitals/I&O/Wt Last Vital Signs Temp 97.3 F L 07/12/20 06:00 Pulse 65 07/12/20 06:00 Resp 17 07/12/20 06:00 BP 143/98 07/12/20 06:00 Pulse Ox 95 07/12/20 06:00 Weight last 48 hrs Weight 102.058 kg Physical Exam Narrative: EXAM NARRATIVE: General exam is a white male, somewhat agitated but will answer questions appropriately. HEENT: Pupils equally round. Oropharynx clear. Neck is supple no lymphadenopathy or thyromegaly Cardiovascular regular rate and rhythm without murmur, no S3 or S4 Lungs clear no wheezing or crackles Abdomen is soft with positive bowel sounds. No obvious organomegaly was deferred Extremities no cyanosis clubbing or edema, cap refill brisk Skin no rash Neuro no obvious focal deficits Data Other Data: Other data: Hemoglobin A1c 7.8 TSH 1.74 Urinalysis 0-4 reds with no whites. Salicylate level less than 3, acetaminophen level less than 5, alcohol level less than 10, UDS positive for marijuana EKG demonstrates sinus rhythm, normal axis, no significant acute changes A&P Assessment and plan (1) Diabetes: Change diet to consistent carb Initiate Levemir 10 units at night Mild sliding scale insulin Refuses Metformin reporting this caused stomach upset in the past Could potentially use Januvia if patient agreed to this. Will discuss with him on subsequent visits when he is less agitated. He seems most familiar with just taking insulin. Status: Acute Qualifiers: Diabetes mellitus type: type 2 Diabetes mellitus complication status: with hyperglycemia Additional A&P Information History of hypertension History of bioprosthetic aortic and mitral valve replacement. Initiate aspirin 3 and 25 mg daily Major depression with history of homicidal ideation Full code Thank you for this consultation Consult Attestations Medical Necessity Statement: As per primary Time Spent in Patient Care: Greater than 35 minutes Coding Level of Care Code Acute Mill Labor Supervisor for Chg Fwd Diagnoses Diabetes E11.9 Diabetes mellitus type: type 2 Diabetes mellitus complication status: with hyperglycemia
[2020-07-12 14:00] VITALS: BP 127/88; PULSE 63; RESP 18; TEMP 36.6; O2SAT 91
[2020-07-12 16:44] LABS: Glucose Point of Care 121 mg/dL (70-110)
[2020-07-12] MEDS: OLANZapine 5 mg ODT PO (18:27)
[2020-07-12 20:19] LABS: Glucose Point of Care 134 mg/dL (70-110)
[2020-07-12 20:28] VITALS: BP 128/81; PULSE 62; RESP 18; TEMP 36.7; O2SAT 93
[2020-07-12 20:31] LABS: Add Urine Microscopic? NO
[2020-07-12 20:54] LABS: Bilirubin Urine Neg (Negative); Blood Urine Neg (Negative); Glucose Urine UA Norm (Normal); Ketones Urine Negative (Negative); Leukocyte Esterase Urine Negative (Negative); Nitrate Urine Negative (Negative); Protein Urine Neg (Negative); Urine Appearance Clear (CLEAR); Urine Color Yellow (Yellow); Urobilinogen Urine Norm (Negative); pH Urine 5 (5-7)
[2020-07-13 06:00] VITALS: BP 137/83; PULSE 54; RESP 18; TEMP 36.7; O2SAT 96
[2020-07-13 06:34] LABS: Glucose Point of Care 131 mg/dL (70-110)
[2020-07-13] MEDS: sitagliptin 100 mg Tablet PO ×2 (08:28→08:36)
[2020-07-13] MEDS: aspirin 81 mg EC Tablet PO ×2 (08:28→08:36)
[2020-07-13] MEDS: escitalopram 10 mg Tablet PO ×2 (08:29→08:36)
[2020-07-13 11:36] LABS: Glucose Point of Care 183 mg/dL (70-110)
[2020-07-13 11:36] LABS: Glucose Point of Care 256 mg/dL (70-110)
[2020-07-13 11:36] LABS: Glucose Point of Care 122 mg/dL (70-110)
[2020-07-13 11:36] LABS: Glucose Point of Care 105 mg/dL (70-110)
--- NOTE | 2020-07-13 11:54 | P.PN_ITS ---
Subjective Subjective: Interval history: Shree reports he is doing okay. No issues taking Januvia. Medications: Reviewed: Yes Vitals/I&O/Wt Last Vital Signs Temp 98.1 F 07/13/20 06:00 Pulse 54 L 07/13/20 06:00 Resp 18 07/13/20 06:00 BP 137/83 07/13/20 06:00 Pulse Ox 96 07/13/20 06:00 Physical Exam Narrative: EXAM NARRATIVE: General exam no apparent distress, conversive. Data : 07/11/20 11:39 07/11/20 11:39 A&P Assessment and plan (1) Diabetes: Diet changed to consistent carb Levemir discontinued as oral intake is likely unreliable as an outpatient and blood sugar was 105 this morning Continue mild sliding scale insulin Refuses Metformin reporting this caused stomach upset in the past Januvia initiated at 100 mg daily A1c was 7.8% despite noncompliance with insulin. I think he can likely be managed with Januvia alone which would reduce risk of hypoglycemia Status: Acute Qualifiers: Diabetes mellitus type: type 2 Diabetes mellitus complication status: with hyperglycemia Additional A&P Information History of hypertension, blood pressure stable History of bioprosthetic aortic and mitral valve replacement. Continue aspirin 325 mg daily Major depression with history of homicidal ideation Full code Thank you for this consultation At this point I will sign off. Please call with any questions. Attestations Medical Necessity Statement*: As per primary Coding Level of Care Code Acute Sewing Machine Tester for Janis Barakat Diagnoses Diabetes E11.9 Diabetes mellitus type: type 2 Diabetes mellitus complication status: with hyperglycemia
[2020-07-13 14:00] VITALS: BP 125/82; PULSE 96; RESP 18; TEMP 36.8; O2SAT 95
[2020-07-13 16:10] LABS: Glucose Point of Care 172 mg/dL (70-110)
[2020-07-13] MEDS: OLANZapine 5 mg ODT PO (16:43)
--- NOTE | 2020-07-13 17:01 | PM.NPN ---
Subjective NPU Subjective: Interval history: Patient reports significant improvement in mood today, decrease in irritability, no longer endorsing homicidal ideation and states, I realize that it would be wrong to hurt someone else and would never hurt my nephew but I feel like he is a spoiled brat. Denies any interval depressive symptoms, denies any suicidal ideation Denies any psychotic symptoms Reports that his appetite is good Reports that he slept well, feels rested No reports of any interval behavioral disturbances Mental Status Exam MSE Comments: Appears stated age, sitting up in bed with shirt off, multiple tattoos on exposed skin, calm, cooperative, good eye contact Psychomotor activity is neither increased nor decreased, no agitation Speech is normal volume, normal rate, not pressured I feel better, full range, not labile Alert and oriented to person, place, time, situation Memory and concentration is intact per interview Thought process, linear, no flight of ideas, no looseness of associations Thought content, no delusions, does not appear to be attending to any internal stimuli, no suicidal ideation, no homicidal ideation Insight and judgment appears to be improved Vitals/I&O/Wt Last Vital Signs Temp 98.2 F 07/13/20 14:00 Pulse 96 07/13/20 14:00 Resp 18 07/13/20 14:00 BP 125/82 07/13/20 14:00 Pulse Ox 95 07/13/20 14:00 Data NPU : 07/11/20 11:39 07/11/20 11:39 A&P Assessment and plan (1) Depressive disorder: Status: Acute (2) Homicidal ideation: Status: Acute Additional A&P Information Denies any interval homicidal ideation with significantly improved mood, tolerating medication well with no reports of any medication side effects CONTINUE current medication, continue to monitor Anticipate discharge tomorrow Involuntary Hold Information 96 Hour Hold: 96 Hour Involuntary Admission: No 96 Hour Hold Ending Date: 01/25/20 96 Hour Hold Ending Time: 21:55 Attestations NPU Medical Necessity Statement*: Psychiatric hospitalization is required for medication stabilization Coding Level of Care Code Acute Marketing Strategy Manager for Janis Barakat Diagnoses Depressive disorder F32.9 Homicidal ideation R45.850
--- NOTE | 2020-07-13 19:09 | P.PN_ITS ---
NPU Therapy Progress Note Therapy Progress Note Date: 07/13/20 Time In: 18:40 Time Out: 18:50 Symptoms Reported: none reported but appears somewhat anxious Mood: polite, short Progress Note: SHOTGUN SHELL ASSEMBLY MACHINE ADJUSTER approached Shree while watching T.V. in the dayroom. She introduces herself and he walks over to talk. He presents with agitated gestures but is polite and friendly. He has questions about following up with a medical doctor for various health issues. He has no insurance. SHOTGUN SHELL ASSEMBLY MACHINE ADJUSTER suggested [facility] in [place]. SHOTGUN SHELL ASSEMBLY MACHINE ADJUSTER explained where she worked and [facility] services offered. Shree says he needs housing as he slept outside 2 different nights, once in [facility] parking lot and another time in the [place]. He was staying with his father but has difficulty getting along with his nephew. He becomes irritated and states he's lazy and i don't like the way he treats my dad . Shree explains his father raised his nephew who is 30 and will not kick him out. This is why he left initially and has concerns about where he will go upon discharge. Ultimately he will go back to his fathers due to the cold weather. SHOTGUN SHELL ASSEMBLY MACHINE ADJUSTER highly encouraged he find a warm place to stay as the low temperatures recently would be dangerous to attempt staying outside again. Intervention: SHOTGUN SHELL ASSEMBLY MACHINE ADJUSTER listened to Shree vent about nephew and provided support. SHOTGUN SHELL ASSEMBLY MACHINE ADJUSTER provided information about [facility] and [facility] services. Shree was encouraged to complete initial paperwork and sign up for [facility] services to assist with obtaining housing. Reported Goals Before Discharge: find a place to stay upon discharge
[2020-07-13] MEDS: haloperidol 5 mg Tablet PO (19:14)
--- NOTE | 2020-07-13 19:15 | PC.NURSE ---
Patient came to nurses station in a manic / agitated state. Inquiring as to why he was feeling so anxious and agitated he answered I don't know, but I need something for anxiety. His speech was rapid and demeanor was mildly confrontational. He had Zyprexa 5 mg at 1643. 5mg Haldol given PO.
[2020-07-13 19:46] LABS: Glucose Point of Care 149 mg/dL (70-110)
[2020-07-13 20:03] VITALS: BP 127/90; PULSE 84; RESP 19; TEMP 36.7; O2SAT 97
[2020-07-14 06:00] VITALS: BP 123/84; PULSE 65; RESP 16; TEMP 36.8; O2SAT 95
[2020-07-14 06:32] LABS: Glucose Point of Care 139 mg/dL (70-110)
[2020-07-14] MEDS: escitalopram 10 mg Tablet PO (09:36)
[2020-07-14] MEDS: sitagliptin 100 mg Tablet PO (09:36)
[2020-07-14] MEDS: aspirin 81 mg EC Tablet PO (09:37)
[2020-07-14] MEDS: hyDROXYzine 25 mg Capsule 50 MG PO (11:24)
[2020-07-14 11:30] LABS: Glucose Point of Care 149 mg/dL (70-110)
--- NOTE | 2020-07-14 12:12 | PM.NDC ---
Diagnoses at Discharge Discharge Diagnosis (1) Depressive disorder: Status: Acute (2) Homicidal ideation: Status: Acute Reason for Visit Reason for Visit: BEHAVIORAL ISSUES Hospital Course Hospital Course Patient admitted to inpatient psychiatry after episode of increased irritability and homicidal ideation towards his nephew who also lives with him. Patient has longstanding history of polysubstance abuse and psychiatric history that is somewhat unclear given his ongoing substance use which has led to multiple medical sequela to include multiple heart valve replacements. No urine drug screen to reference at the time of this admission but patient was extremely irritable and angry with ongoing homicidal ideation at the time of initial evaluation. Patient was started on Lexapro 10 mg which she tolerated well with no reports of any medication side effects and reported good effect. Patient continued to have intermittent episodes of irritability while on the unit which was occasionally treated with as needed medication although he never demonstrated any true sesar, patient did report irritability with difficulty exercising adequate coping. Patient has some insight into this and also reports prior to discharge that he was not having homicidal ideation that he understands the consequences of his actions and has no desire to go to correction or harm anyone. Patient was also able to communicate his understanding of the need for medication management follow-up and counseling to develop better coping strategies given his longstanding history of poor impulse control, irritability and substance abuse. Patient was not suicidal or homicidal at the time of discharge and did not appear to pose an imminent threat of harm to self or others. Low to moderate risk of harm to self or others given no current suicidal or homicidal ideation and no active psychiatric symptoms although patient's risk may continue to be elevated if he continues to exercise poor impulse control, maladaptive coping with substance use or is noncompliant with this medication, medication management and counseling follow-up leading to unexpected, impulsive behavior. Risk mitigation included psychiatric hospitalization for observation for any ongoing homicidal ideation or potential self-harm as well as medication stabilization to address patient's irritability and recommendation to abstain from the use of any substances and alcohol. Patient was able to communicate his understanding of the need for compliance with his medication, medication management and counseling follow-up in order to further mitigate his risk of harm to self and others. Involuntary Hold Information 96 Hour Hold: 96 Hour Involuntary Admission: No 96 Hour Hold Ending Date: 01/25/20 96 Hour Hold Ending Time: 21:55 Mental Status Exam MSE Comments: Standing in his room, appropriately dressed in hospital scrubs, appropriately groomed, calm, cooperative, good eye contact Psychomotor activity is neither increased nor decreased, no agitation Speech is normal volume, normal rate, not pressured I feel okay, full range, not labile Alert and oriented to person, place, time, situation Memory and concentration is intact per interview Thought process, linear, no flight of ideas, no looseness of associations Thought content, no delusions, does not appear to be attending to any internal stimuli, no suicidal ideation, no homicidal ideation Insight and judgment appears to be improved Discharge Data Data Completed and Pending: Labs from last 24 hours 07/14/20 07/14/20 07/13/20 11:24 06:20 19:41 POC Glucose 149 H 139 H 149 H 07/13/20 16:03 POC Glucose 172 H Vitals: Last Vital Signs Temp 98.2 F 07/14/20 06:00 Pulse 65 07/14/20 06:00 Resp 16 07/14/20 06:00 BP 123/84 07/14/20 06:00 Pulse Ox 95 07/14/20 06:00 Discharge Plan Discharge Condition: Stable Prescriptions: New aspirin 81 mg Tablet,Delayed Release (Dr/Ec) 81 mg PO DAILY Qty: 30 RF: 0 escitalopram oxalate 10 mg Tablet 10 mg PO DAILY Qty: 30 RF: 0 Januvia 100 mg Tablet 100 mg PO DAILY Qty: 30 RF: 0 No Action No Known Home Medications RF: 0 Discharge Orders: Discharge Order (Routine); Ordered 07/14/20 Ordered By: Raoul Quiles Discharge Diet: Diabetic Discharge Activity: Resume usual activity Discharge Attestations NPU Time Spent in Discharge Care*: greater than 30 min Status at Discharge: Cognitive status at discharge: cognitively intact, Behavioral status at discharge: cooperative, Functional status at discharge: independent ambulation Overall status at discharge: patient is back to baseline Coding Level of Care Code Acute Daily Release And Dupe Printer for Janis Barakat Diagnoses Depressive disorder F32.9 Homicidal ideation R45.850
[2020-07-14 12:21] VITALS: BP 123/84; PULSE 65; RESP 16; TEMP 36.8; O2SAT 95
== END 2020-07-14 12:30 | disposition home or self-care (01) | DRG 881 ==
LOC: ER 14:03 → NP 15:08
PROVIDERS: Admitting Provider Psychiatry & Neurology Psychiatry; Emergency Provider Family Medicine; Visit Provider Psychiatry & Neurology Psychiatry
DX: F32.9 Major depressive disorder, single episode, unspecified (principal); R45.850 Homicidal ideations; I25.10 Atherosclerotic heart disease of native coronary artery without angina pectoris; E11.9 Type 2 diabetes mellitus without complications; I10 Essential (primary) hypertension; Z95.2 Presence of prosthetic heart valve; B19.20 Unspecified viral hepatitis C without hepatic coma
CPT/HCPCS: 12345; 36415; 36416; 80053; 80306; 80307; 81001; 81003; 82962; 83036; 84443; 85025; 90471; 90686; 93005; 96372; 99282; J1815

== ENCOUNTER 2020-09-30 15:05 | Emergency (ER) | payer BC, SELFPAY ==
[2020-09-30 15:31] VITALS: BP 148/98; PULSE 127; RESP 16; TEMP 36.8; O2SAT 99; BMI 34.9
--- NOTE | 2020-09-30 15:44 | XRR_ITS ---
PROCEDURE INFORMATION: Exam: XR Chest Exam date and time: 09/30/2020 4:31 PM Age: 50 years old Clinical indication: Chest pain; Additional info: Reduced breath sounds TECHNIQUE: Imaging protocol: XR of the chest. Views: 1 view. Total images: 1 COMPARISON: CR XR chest 1V portable [id number] 12/17/2019 9:19 PM FINDINGS: Lungs: No visible active interstitial or alveolar airspace disease. Pleural spaces: Unremarkable. No pleural effusion. No pneumothorax. Heart/Mediastinum: Cardiac structures and configuration with status post sternotomy chest. Bones/joints: Unremarkable. XR/XR chest 1V portable [id number] IMPRESSION: Nonacute.
--- NOTE | 2020-09-30 15:49 | ECG_ITS ---
[facility] Test Date: 2020-09-30 Pat Name: Shree Hickman Department: Room: Gender: Male Director Mobile: : 1970 Requested By: Giovany Chang Order Number: [id number] Charlie MD: LEDA WEBB Measurements Intervals [place] Rate: 105 P: 17 GA: 136 QRS: 67 QRSD: 105 T: 34 QT: 349 QTc: 462 Interpretive Statements SINUS TACHYCARDIA ABNORMAL RHYTHM ECG Compared to ECG 07/11/2020 11:44:22 Sinus bradycardia no longer present Electronically Signed On 09-30-2020 22:23:09 CDT by LEDA WEBB [id number]
[2020-09-30] MEDS: acetaminophen 325 mg Tablet 650 MG PO (16:05)
[2020-09-30] MEDS: sodium chloride 0.9% 1,000 ML 999 ML IV (16:06)
[2020-09-30] MEDS: cloNIDine 0.1 mg Tablet PO (16:06)
[2020-09-30 16:15] LABS: Glucose Point of Care 249 mg/dL (70-110)
[2020-09-30 16:18] VITALS: BP 132/74; PULSE 110; RESP 16; O2SAT 99
[2020-09-30 16:29] LABS: Basophils % 0.2 %; Eosinophils % 0.1 %; Hematocrit 38.6 % (42.0-52.0); Lymphocytes # 1.7 10^3/uL (0.8-4.8); Mean Corpuscular HGB Conc 33.7 g/dL (30.0-36.0); Mean Corpuscular Hemoglobin 28.4 pg (28.0-34.0); Mean Corpuscular Volume 84.5 fL (80-94); Monocytes # 0.5 10^3/uL (0.2-0.9); Monocytes % 5.1 %; Neutrophils # 7.53 10^3/uL (1.8-7.7); Neutrophils % 77.2 %; Nucleated Red Blood Cells % 0 %; Platelet Count 239 10^3/cmm (130-400); Red Blood Count 4.57 10^6/uL (4.1-5.3); Red Cell Distribution Width 12.6 % (12.1-15.1); White Blood Count 9.8 10^3/uL (4.0-10.0)
[2020-09-30 16:53] LABS: D Dimer <= 0.27 ug/mIFEU (0-0.59)
[2020-09-30 17:11] LABS: Troponin(5th) Baseline 13 ng/L (0-15)
[2020-09-30 17:12] LABS: Lactate (Lactic Acid level) 1.6 mmol/L (0.5-2.2)
[2020-09-30 17:17] LABS: Alanine Aminotransferase 12 U/L (0-41); Albumin Level 4.2 g/dL (3.5-5.2); Alkaline Phosphatase 110 IU/L (40-130); Anion Gap 18.6 (5-19); Aspartate Amino Transferase 10 U/L (0-40); Blood Urea Nitrogen 12 mg/dL (6-20); Carbon Dioxide 19 mmol/L (22-29); Chloride 101 mmol/L (98-107); Creatine Phosphokinase 52 U/L (39-308); Creatinine Clr Calc Pharmacy 151.0888; Globulin 2.6 g/dL (1.3-4.6); Glomerular Filtration Rate 120.4 mL/min (90-130); Glucose 243 mg/dL (65-115); Osmolality Calculated 288 mOsm/kg (285-295); Potassium 3.6 mmol/L (3.5-5.1); Sodium 135 mmol/L (136-145); Thyroid Stimulating Hormone 2.08 uIU/mL (0.27-4.20); Total Bilirubin 0.4 mg/dL (0.15-1.2); Total Protein 6.8 g/dL (6.6-8.7)
[2020-09-30 17:21] VITALS: BP 132/74; PULSE 110; RESP 16; O2SAT 99
[2020-09-30 17:21] LABS: Alcohol Level < 10 mg/dL (0-10)
--- NOTE | 2020-09-30 18:56 | ED_ITS ---
HPI - Back Pain/Injury General: Chief Complaint: Back Pain/Injury Stated Complaint: LOWER BACK PAIN/DIZZY Time Seen by Provider: 09/30/20 15:34 History of Present Illness: HPI Narrative: The patient is a 50-year-old male with past medical history diabetes noncompliant with his medications who comes to the ER complaining of low back pain. He admits to snorting meth yesterday. He says also he has a bad heart valve and gets short of breath when he walks and has occasional chest pain. He says he is supposed to follow-up with a incident handler but he has not. Associated symptoms: Deny abdominal pain, difficulty walking, fatigue or urinary urgency Review of Systems General: Reports: 10 or more systems reviewed and unremarkable except in HPI and below Const: Denies: fatigue Eyes: Denies: change in vision, blurry vision or eye redness ENMT: Denies: throat pain, swelling of lips/tongue, ear or mastoid pain or nasal congestion Card: Denies: chest pain, palpitations, irregular heart rhythm, edema, dyspnea on exertion or orthopnea Resp: Reports: other (Dyspnea on exertion); Denies: dyspnea, productive cough or non-productive cough GI: Denies: abdominal pain, diarrhea or GI cramping : Denies: flank pain, urinary frequency or urinary urgency Musc: Reports: back pain; Denies: neck pain, extremity pain, joint pain, joint redness, limited range of motion or muscle weakness Skin/Breast: Denies: rash, pruritus, erythema, skin pain or skin tenderness Neuro: Denies: headache(s), numbness in extremities, weakness in extremities, sensory changes, difficulty walking, dizziness, confusion or Slurred speech present Psych: Denies: anxiety or depression Endo: Denies: polyuria All/Imm: Denies: urticaria, throat swelling or tongue swelling PFSH ED PFSH: Medical History (Updated 09/30/20 @ 20:57 by Giovany Chang MD) Bowel obstruction CAD (coronary artery disease) Diabetes Hepatitis C History of bacterial endocarditis Hypertension Surgical History History of aortic valve replacement with bioprosthetic valve History of heart valve replacement History of mitral valve replacement with bioprosthetic valve Family History (Updated 07/12/20 @ 13:14 by Khari Miranda MD) Other Diabetes No significant family history Social History Smoking and tobacco status: never smoked Alcohol intake: current Alcohol intake frequency: holidays/special occasions only Housing: Other Details: Homeless Current occupational status: unemployed Physical Exam Const: COMMON NORMALS: no acute distress, average body habitus, patient oriented x3, no limitations, healthy appearing, alert and well nourished GENERAL APPEARANCE: cooperative, comfortable, well kempt and well developed ORIENTATION/CONSCIOUSNESS: Yes awake, Yes oriented to person, Yes oriented to pl [address] and Yes oriented to time HENMT: COMMON NORMALS: normocephalic, external ears normal and Normal external nose present HEAD & SCALP: normal to inspection and normocephalic NOSE: Normal external nose present EXTERNAL EAR: Yes external ears normal MOUTH: Normal oral and palatal mucosa present THROAT: posterior oropharynx normal Eye: COMMON NORMALS: Equal, round and reactive pupils present and EOMs intact bilaterally GENERAL EYE: appearance normal, both eyes and all related stru ctures PUPIL: Yes Equal, round and reactive pupils present Neck/C-Spine: COMMON NORMALS: full ROM, no lymphadenopathy, no meningeal signs and no JVD GENERAL: Yes normal visual inspection Lymph: LYMPHATIC: no lymphadenopathy noted Chest: COMMONS NORMALS: normal inspection of the chest and normal palpation of entire chest wall Resp: COMMON NORMALS: normal respiratory effort, No retractions, No use of accessory muscles, clear to auscultation bilaterally and percussion normal EFFORT & INSPECTION: Yes able to speak in complete sentences AUSCULTATION: clear to auscultation bilaterally PERCUSSION: percussion normal Cardio: COMMON NORMALS: no JVD, regular rhythm, S1 normal heart sound present, S2 normal heart sound present and Peripheral pulses 2+ throughout RATE: tachycardic RHYTHM: regular rhythm HEART SOUNDS: S1 normal heart sound present and S2 normal heart sound present PERIPHERAL PULSES: Peripheral pulses 2+ throughout GI: COMMON NORMALS: Normal to inspection, nondistended, normoactive bowel sounds present, Soft to palpation, non-tender and no masses INSPECTION: Yes normal to inspection PALPATION: Yes Soft to palpation : COMMON NORMALS: Yes no CVA tenderness BLADDER/KIDNEY EXAM: Yes no CVA tenderness Back/Pelvis: COMMON NORMALS: no CVA tenderness, thoracic and lumbar spine normal to inspection, no thoracic nor lumbar tenderness and thoraco-lumbar ROM normal Extremity: COMMON NORMALS: normal to inspection, full ROM, capillary refill normal, no joint enlargement and no pedal edema GENERAL: Yes normal exam except as noted Neuro: COMMON NORMALS: patient oriented x3, CN's II-XII intact bilaterally, moves all extremities, no focal motor deficits, no sensory deficits noted and gait normal SENSORIUM/ORIENTATION: Yes alert, Yes oriented to person, Yes oriented to place and Yes oriented to time MENINGEAL SIGNS: Yes no meningeal signs Psych: COMMON NORMALS: mental status grossly normal, Normal thought process present, cooperative, normal affect and speech normal APPEARANCE: Yes well kempt ATTITUDE: Yes calm SPEECH: Yes normal speech THOUGHT PROCESS: Normal thought process present Skin: COMMON NORMALS: no rashes or lesions noted GENERAL SKIN EXAM: no rashes or lesions noted Course Vital Signs: Vital signs: Vital Signs Temperature 98.2 F 09/30/20 15:31 Pulse Rate 110 H 09/30/20 17:21 Respiratory Rate 16 09/30/20 17:21 Blood Pressure 132/74 09/30/20 17:21 Pulse Oximetry 99 09/30/20 17:21 MDM - Back Pain/Injury MDM Narrative: Medical decision making narrative: I was providing care in another room and the patient requested to leave AGAINST MEDICAL ADVICE. The nurse signed him out AGAINST MEDICAL ADVICE and told him that his condition could worsen and even . He understood and accepted that risk and signed AGAINST MEDICAL ADVICE and left on his own. I was in the room I discouraged him from using drugs on initial presentation. I also told him based on his claims that he should be following up with a heart doctor and primary care physician to get his prescriptions. He understood at that time he should follow-up. Lab Data: Labs: Lab Results 09/30/20 09/30/20 09/30/20 Range/Units 16:01 16:15 16:15 WBC 9.8 (4.0-10.0) 10^3/ uL RBC 4.57 (4.1-5.3) 10^6/u L Hgb 13.0 (11.7-16.6) g/dL Hct 38.6 L (42.0-52.0) % MCV 84.5 (80-94) fL MCH 28.4 (28.0-34.0) pg MCHC 33.7 (30.0-36.0) g/dL RDW 12.6 (12.1-15.1) % Plt Count 239 (130-400) 10^3/c mm MPV 10.0 (7.4-10.4) fL Neut % (Auto) 77.2 % Lymph % (Auto) 17.0 % [place] % (Auto) 5.1 % Eos % (Auto) 0.1 % Baso % (Auto) 0.2 % Neut # (Auto) 7.53 (1.8-7.7) 10^3/u L Lymph # (Auto) 1.7 (0.8-4.8) 10^3/u L [place] # (Auto) 0.5 (0.2-0.9) 10^3/u L Eos # (Auto) 0.0 (0.0-0.8) 10^3/u L Baso # (Auto) 0.0 (0.0-0.1) 10^3/u L Nucleated RBC % (a uto) 0 % Nucleated RBCs # 0.0 /100WBC D-Dimer (0-0.59) ug/mIFE U Sodium 135 L (136-145) mmol/L Potassium 3.6 (3.5-5.1) mmol/L Chloride 101 (98-107) mmol/L Carbon Dioxide 19 L (22-29) mmol/L Anion Gap 18.6 (5-19) BUN 12 (6-20) mg/dL Creatinine 0.7 (0.7-1.2) mg/dL GFR Calculation 120.4 (90-130) mL/min Glucose 243 H (65-115) mg/dL POC Glucose 249 H (70-110) mg/dL Calculated Osmolal ity 288 (285-295) mOsm/k g Lactate (0.5-2.2) mmol/L Calcium 9.0 (8.5-10.5) mg/dL Total Bilirubin 0.4 (0.15-1.2) mg/dL AST 10 (0-40) U/L ALT 12 (0-41) U/L Alkaline Phosphata se 110 (40-130) IU/L Creatine Kinase 52 (39-308) U/L Troponin T Baselin e (0-15) ng/L Total Protein 6.8 (6.6-8.7) g/dL Albumin 4.2 (3.5-5.2) g/dL Globulin 2.6 (1.3-4.6) g/dL TSH 2.08 (0.27-4.20) uIU/ mL Ethyl Alcohol < 10 (0-10) mg/dL 09/30/20 09/30/20 09/30/20 Range/Units 16:15 16:15 16:30 WBC (4.0-10.0) 10^3/ uL RBC (4.1-5.3) 10^6/u L Hgb (11.7-16.6) g/dL Hct (42.0-52.0) % MCV (80-94) fL MCH (28.0-34.0) pg MCHC (30.0-36.0) g/dL RDW (12.1-15.1) % Plt Count (130-400) 10^3/c mm MPV (7.4-10.4) fL Neut % (Auto) % Lymph % (Auto) % [place] % (Auto) % Eos % (Auto) % Baso % (Auto) % Neut # (Auto) (1.8-7.7) 10^3/u L Lymph # (Auto) (0.8-4.8) 10^3/u L [place] # (Auto) (0.2-0.9) 10^3/u L Eos # (Auto) (0.0-0.8) 10^3/u L Baso # (Auto) (0.0-0.1) 10^3/u L Nucleated RBC % (a uto) % Nucleated RBCs # /100WBC D-Dimer <= 0.27 (0-0.59) ug/mIFE U Sodium (136-145) mmol/L Potassium (3.5-5.1) mmol/L Chloride (98-107) mmol/L Carbon Dioxide (22-29) mmol/L Anion Gap (5-19) BUN (6-20) mg/dL Creatinine (0.7-1.2) mg/dL GFR Calculation (90-130) mL/min Glucose (65-115) mg/dL POC Glucose (70-110) mg/dL Calculated Osmolal ity (285-295) mOsm/k g Lactate 1.6 (0.5-2.2) mmol/L Calcium (8.5-10.5) mg/dL Total Bilirubin (0.15-1.2) mg/dL AST (0-40) U/L ALT (0-41) U/L Alkaline Phosphata se (40-130) IU/L Creatine Kinase (39-308) U/L Troponin T Baselin e 13 (0-15) ng/L Total Protein (6.6-8.7) g/dL Albumin (3.5-5.2) g/dL Globulin (1.3-4.6) g/dL TSH (0.27-4.20) uIU/ mL Ethyl Alcohol (0-10) mg/dL Discharge Plan Discharge Patient Disposition: Left Against Medical Advice Clinical Impression: Back pain Prescriptions: No Action Lantus Solostar U-100 Insulin 100 unit/mL (3 mL) insulin pen See Rx Instructions .ROUTE .COMPLEX RF: 0 Coding Level of Care Code ED Textile Machine Mechanic for Chg Yuval
== END 2020-09-30 17:22 | disposition left against medical advice (07) ==
PROVIDERS: Emergency Provider Family Medicine
DX: M54.9 Dorsalgia, unspecified (principal); Z79.4 Long term (current) use of insulin; Z53.21 Procedure and treatment not carried out due to patient leaving prior to being seen by health care provider; I25.10 Atherosclerotic heart disease of native coronary artery without angina pectoris; E11.9 Type 2 diabetes mellitus without complications; Z86.19 Personal history of other infectious and parasitic diseases; I10 Essential (primary) hypertension
CPT/HCPCS: 36416; 71045; 80053; 80307; 82550; 82962; 83605; 84443; 84484; 85025; 85378; 93005; 96360; 99284; J7030

== ENCOUNTER 2020-10-01 13:31 | Emergency (ER) | payer BC, SELFPAY ==
[2020-10-01 13:39] VITALS: PULSE 118; RESP 20; TEMP 36.8; O2SAT 100; BMI 34.9
[2020-10-01 13:42] VITALS: PULSE 120; O2SAT 100
--- NOTE | 2020-10-01 13:46 | W.ED.BACK ---
HPI - Back Pain/Injury General: Chief Complaint: Back Pain/Injury Stated Complaint: BACK PAIN Time Seen by Provider: 10/01/20 13:42 History of Present Illness: HPI Narrative: 50-year-old male patient comes in today with complaints of low back pain. Patient reports rolling over in bed and causing severe sudden onset of back pain at that time. Patient did come to the ER yesterday for evaluation but left prior to completion of services. I reviewed the labs that were done yesterday and everything was unremarkable. Patient appears restless and agitated but columns when spoken to. Patient does have a history of low back pain. Patient denies any recent falls or other injuries. MD elicited complaint: back pain Pertinent past history: prior back pain Timing: intermittent Severity: moderate Similar Symptoms Previously: Yes Quality: sharp Location: lumbar spine Radiation: none Exacerbating factors: movement Relieving factors: immobilization Context: turning/twisting Associated symptoms: Reports tingling/numbness/burning Treatments prior to arrival: heat therapy Review of Systems General: Reports: 10 or more systems reviewed and unremarkable except in HPI and below Musc: Reports: back pain PFSH ED PFSH: Medical History (Updated 10/01/20 @ 13:59 by MIREILLE Law) Bowel obstruction CAD (coronary artery disease) Diabetes Hepatitis C History of bacterial endocarditis Hypertension Surgical History History of aortic valve replacement with bioprosthetic valve History of heart valve replacement History of mitral valve replacement with bioprosthetic valve Family History (Updated 07/12/20 @ 13:14 by Khari Miranda MD) Other Diabetes No significant family history Social History Smoking and tobacco status: never smoked Alcohol intake: current Alcohol intake frequency: holidays/special occasions only Housing: Other Details: Homeless Current occupational status: unemployed Physical Exam Const: COMMON NORMALS: no acute distress and patient oriented x3 GENERAL APPEARANCE: cooperative HENMT: COMMON NORMALS: normocephalic and Normal external nose present HEAD & SCALP: normal to inspection and normocephalic NOSE: Normal external nose present Eye: GENERAL EYE: appearance normal, both eyes and all related structures Neck/C-Spine: COMMON NORMALS: full ROM Chest: COMMONS NORMALS: normal inspection of the chest Resp: COMMON NORMALS: normal respiratory effort EFFORT & INSPECTION: Yes able to speak in complete sentences Cardio: COMMON NORMALS: regular rate and regular rhythm RATE: regular rate RHYTHM: regular rhythm GI: COMMON NORMALS: non-tender Back/Pelvis: LUMBAR SPINE/LOWER BACK: Yes lumbar spinal tenderness Lumbar spinal tenderness location: L5, Yes paraspinal muscle tenderness Lumbar paraspinal muscle tenderness: bilateral and Yes paraspinal muscle spasm Lumbar paraspinal muscle spasm: right Extremity: COMMON NORMALS: normal to inspection Neuro: COMMON NORMALS: patient oriented x3 and moves all extremities Psych: COMMON NORMALS: mental status grossly normal and cooperative Skin: COMMON NORMALS: no rashes or lesions noted GENERAL SKIN EXAM: no rashes or lesions noted Course ED course: 1527, reviewed x-rays with patient, patient does report some improvement in back pain since injections. Recommend having prescriptions filled and following up as needed. Tried to reassure patient that the pain will get better needed use gentle stretching exercises ice and heat and medications as directed. Patient reported understanding and agreed to plan. Vital Signs: Vital signs: Vital Signs Temperature 98.2 F 10/01/20 13:39 Pulse Rate 120 H 10/01/20 13:42 Respiratory Rate 20 H 10/01/20 13:39 Pulse Oximetry 100 10/01/20 13:42 MDM - Back Pain/Injury MDM Narrative: Medical decision making narrative: 50-year-old male patient comes in today with some low back pain. Patient has had a history of low back pain in the past but 4 days ago he rolled over in bed and since then he had increased pain and discomfort. On exam patient has no sign of redness or inflammation to the lumbar spine where his pain is at. Patient does have some muscle tenderness with muscle spasm on the right side. Patient does have some spinal tenderness about L4-L5 area. Patient moves all extremities well. Vital signs are normal except for some elevation in heart rate. Differential diagnosis includes intervertebral disc disease, facet arthropathy, lumbar strain. Exam notes no sign of significant illness or injury. Patient was medicated with Toradol and lorazepam for his pain and muscle spasm. I encourage patient to drink plenty of fluids written prescriptions for diclofenac and cyclobenzaprine. Patient reported understanding of care plan and need for follow-up or return. Discharge Plan Discharge Patient Disposition: Home Clinical Impression: Strain of fascia of lower back Condition: Stable Prescriptions: New diclofenac potassium 50 mg tablet 50 mg PO Q8H PRN (Reason: pain) Qty: 12 RF: 0 cyclobenzaprine 10 mg tablet 10 mg PO Q8H PRN (Reason: muscle spasm, back pain) Qty: 20 RF: 0 No Action Lantus Solostar U-100 Insulin 100 unit/mL (3 mL) insulin pen See Rx Instructions .ROUTE .COMPLEX RF: 0 Discharge Orders: Discharge ED (Routine); Ordered 10/01/20 Ordered By: Magen Zuleta Discharge Diet: Usual diet Discharge Activity: Increase activity as tolerated Patient Instructions: Back Pain (ED), Opioid Safety Activity Restrictions/Additional Instructions: It is important to stay as active as you can with back pain. Use ice and heat for comfort. Drink plenty of water with medication. Use prescription medications as directed. Follow-up with primary care in 1 week for recheck. Return to the ER for new concerns. 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
[2020-10-01] MEDS: LORazepam 2 mg/mL INJ 1 mL IM (14:28)
[2020-10-01] MEDS: ketorolac 30 mg/mL INJ IM (14:28)
--- NOTE | 2020-10-01 14:36 | XRR_ITS ---
PROCEDURE INFORMATION: Exam: XR Lumbosacral Spine Exam date and time: 10/01/2020 2:56 PM Age: 50 years old Clinical indication: Low back pain TECHNIQUE: Imaging protocol: XR of the lumbosacral spine. Views: 2 or 3 views. COMPARISON: CT abdomen pelvis w con* [id number] 12/19/2019 2:35 PM FINDINGS: Bones/joints: No acute fracture. Normal alignment. There is mild osteophyte formation at L3/4 and L4/5. Soft tissues: Unremarkable. XR/XR lumbar spine 2-3V* [id number] IMPRESSION: No acute findings.
[2020-10-01 15:36] VITALS: RESP 18
== END 2020-10-01 15:37 | disposition home or self-care (01) ==
PROVIDERS: Emergency Provider Nurse Practitioner Family
DX: S39.012A Strain of muscle, fascia and tendon of lower back, initial encounter (principal); Z79.4 Long term (current) use of insulin; I25.10 Atherosclerotic heart disease of native coronary artery without angina pectoris; E11.9 Type 2 diabetes mellitus without complications; Z86.19 Personal history of other infectious and parasitic diseases; I10 Essential (primary) hypertension; X50.9XXA Other and unspecified overexertion or strenuous movements or postures, initial encounter
CPT/HCPCS: 72100; 96372; 99283; J1885; J2060

== ENCOUNTER 2020-10-09 01:02 | Emergency (ER) | payer BC, SELFPAY ==
[2020-10-09 01:13] VITALS: BP 151/91; PULSE 110; RESP 17; TEMP 37; O2SAT 99; BMI 30.4
--- NOTE | 2020-10-09 02:32 | ED_ITS ---
HPI - Extremity Problem General: Chief complaint: Extremity Problem,Nontraumatic Stated complaint: lower back pain Time Seen by Provider: 10/09/20 02:27 Source: patient Mode of arrival: ambulatory Limitations: no limitations History of Present Illness: HPI Narrative: 50-year-old male states he has a history of chronic back pain. He states he was taking diclofenac but his siste r's home. States his pain is worsened over the last week. He states is currently an 8 out of 10. Denies any bowel or bladder incontinence. Denies any fevers. States it is worse with movement improved with rest. States he is got some radiation down his leg. Associated symptoms: Deny chest pain, fever(s) or rash Review of Systems Const: Denies: fever(s), chills, body aches or change in appetite Eyes: Denies: blurry vision or eye discomfort ENMT: Denies: throat pain or dental pain Card: Denies: chest pain Resp: Denies: dyspnea GI: Denies: abdominal pain, nausea, vomiting or diarrhea : Denies: dysuria Musc: Reports: back pain Skin/Breast: Denies: rash Neuro: Denies: headache(s) Psych: Denies: depression Jefferson/Lymph: Denies: easy bruising All/Imm: Denies: urticaria PFSH ED PFSH: Medical History (Updated 10/09/20 @ 02:32 by Jaylyn Vera MD) Bowel obstruction CAD (coronary artery disease) Diabetes Hepatitis C History of bacterial endocarditis Hypertension Surgical History History of aortic valve replacement with bioprosthetic valve History of heart valve replacement History of mitral valve replacement with bioprosthetic valve Family History (Updated 07/12/20 @ 13:14 by Khari Miranda MD) Other Diabetes No significant family history Social History Smoking and tobacco status: never smoked Alcohol intake: current Alcohol intake frequency: holidays/special occasions only Housing: Other Details: Homeless Current occupational status: unemployed Physical Exam Const: COMMON NORMALS: no acute distress, patient oriented x3 and healthy appearing HENMT: COMMON NORMALS: normocephalic and atraumatic HEAD & SCALP: normo cephalic and atraumatic Eye: COMMON NORMALS: Equal, round and reactive pupils present and EOMs intact bilaterally PUPIL: Yes Equal, round and reactive pupils present Neck/C-Spine: COMMON NORMALS: full ROM and supple Chest: COMMONS NORMALS: normal inspection of the chest and normal palpation of entire chest wall Resp: COMMON NORMALS: normal respiratory effort, No retractions, No use of accessory muscles and clear to auscultation bilaterally AUSCULTATION: clear to auscultation bilaterally Cardio: COMMON NORMALS: regular rate, regular rhythm and No murmurs present (Cardio) RATE: regular rate RHYTHM: regular rhythm GI: COMMON NORMALS: Normal to inspection, nondistended, normoactive bowel sounds present, Soft to palpation, non-tender and no masses PALPATION: Yes Soft to palpation Back/Pelvis: OTHER: Paraspinal tenderness to the low back no saddle anesthesia. Extremity: COMMON NORMALS: normal to inspection and full ROM Neuro: COMMON NORMALS: patient oriented x3, moves all extremities and no focal motor deficits Psych: COMMON NORMALS: mental status grossly normal, Normal thought process present and cooperative THOUGHT PROCESS: Normal thought process present Skin: COMMON NORMALS: no rashes or lesions noted and no wounds GENERAL SKIN EXAM: no rashes or lesions noted Course Vital Signs: Vital signs: Vital Signs Temperature 98.6 F 10/09/20 01:13 Pulse Rate 110 H 10/09/20 01:13 Respiratory Rate 17 10/09/20 01:13 Blood Pressure 151/91 10/09/20 01:13 Pulse Oximetry 99 10/09/20 01:13 MDM - Extremity (Nontraumatic) MDM Narrative: Medical decision making narrative: Patient presents with low back pain that is chronic in nature. Patient states his sister still is diclofenac. We will place him on Naprosyn. He has no signs of epidural abscess or cord compression. He is stable for discharge and return if worsening. Discharge Plan Discharge Patient Disposition: Home Clinical Impression: Low back pain Qualifiers: Chronicity: chronic Back pain laterality: bilateral Sciatica presence: without sciatica Qualified Code(s): M54.5 - Low back pain Condition: Stable Prescriptions: New Naprosyn 500 mg tablet 500 mg PO BID PRN (Reason: pain) Qty: 20 RF: 0 No Action diclofenac potassium 50 mg tablet 50 mg PO Q8H PRN (Reason: pain) Qty: 12 RF: 0 cyclobenzaprine 10 mg tablet 10 mg PO Q8H PRN (Reason: muscle spasm, back pain) Qty: 20 RF: 0 Lantus Solostar U-100 Insulin 100 unit/mL (3 mL) insulin pen See Rx Instructions .ROUTE .COMPLEX RF: 0 Discharge Orders: Discharge ED (Routine); Ordered 10/09/20 Ordered By: Jaylyn Vera Discharge Diet: Advance as tolerated Discharge Activity: Resume usual activity Patient Instructions: Back Pain (ED) Coding Level of Care Code ED Podiatric Aide for Janis Barakat
[2020-10-09] MEDS: dexamethasone 10 mg/mL INJ IM (02:52)
[2020-10-09 02:53] VITALS: RESP 20; O2SAT 95
[2020-10-09] MEDS: morphine 4 mg/mL SDV 1 mL IM (02:53)
[2020-10-09 03:35] VITALS: BP 158/86; PULSE 98; RESP 18; TEMP 36.7; O2SAT 96
== END 2020-10-09 03:40 | disposition home or self-care (01) ==
PROVIDERS: Emergency Provider Emergency Medicine
DX: G89.29 Other chronic pain (principal); M54.5 Low back pain; Z79.4 Long term (current) use of insulin; I25.10 Atherosclerotic heart disease of native coronary artery without angina pectoris; E11.9 Type 2 diabetes mellitus without complications; Z86.19 Personal history of other infectious and parasitic diseases; I10 Essential (primary) hypertension
CPT/HCPCS: 96372; 99283; J1100; J2270

== ENCOUNTER 2020-10-13 17:07 | Emergency (ER) | payer BC, SELFPAY ==
[2020-10-13 17:15] VITALS: BP 119/66; PULSE 98; RESP 18; TEMP 36.6; O2SAT 98; BMI 34.2
--- NOTE | 2020-10-13 17:24 | W.ED.BACK ---
HPI - Back Pain/Injury General: Chief Complaint: Back Pain/Injury Stated Complaint: BACK PAIN Time Seen by Provider: 10/13/20 17:21 History of Present Illness: HPI Narrative: Patient presents via ambulance with complaint of chronic low back pain. He said he has an MRI scheduled in 2 weeks. He said he needs something for the pain. He says it hurts to get a bed to move around to set up. He said is been going on for years just recently got worse the last few months. Originally occurred from an injury. Patient states he knows we cannot do anything to help him he would just like a pain shot. Denies any other problems presently. MD elicited complaint: back pain Pertinent past history: prior back pain Onset (ago): year(s) Severity: moderate Quality: aching Location: lumbar spine Radiation: none Exacerbating factors: movement, walking, coughing/sneezing and lifting Relieving factors: immobilization Context: unknown Associated symptoms: Reports no associated symptoms; Deny abdominal pain, chills, fever(s), nausea or vomiting Treatments prior to arrival: NSAIDS Work related injury: No Review of Systems Const: Denies: fever(s), chills or body aches Eyes: Denies: change in vision or blurry vision ENMT: Denies: throat pain or nasal congestion Card: Denies: chest pain or dyspnea on exertion Resp: Denies: dyspnea, productive cough or non-productive cough GI: Denies: abdominal pain, nausea or vomiting : Denies: difficulty urinating Musc: Reports: back pain (Chronic and exacerbated); Denies: extremity pain Skin/Breast: Denies: rash Neuro: Denies: headache(s) Psych: Denies: anxiety or depression Jefferson/Lymph: Denies: easy bruising PFS ED PFSH: Medical History (Updated 10/13/20 @ 17:28 by MIREILLE Fox) Bowel obstruction CAD (coronary artery disease) Diabetes Hepatitis C History of bacterial endocarditis Hypertension Surgical History History of aortic valve replacement with bioprosthetic valve History of heart valve replacement History of mitral valve replacement with bioprosthetic valve Family History (Updated 07/12/20 @ 13:14 by Khari Miranda MD) Other Diabetes No significant family history Social History Smoking and tobacco status: never smoked Alcohol intake: current Alcohol intake frequency: holidays/special occasions only Housing: Other Details: Homeless Current occupational status: unemployed Physical Exam Const: COMMON NORMALS: no acute distress, average body habitus and patient oriented x3 HENMT: COMMON NORMALS: normocephalic HEAD & SCALP: normal to inspection and normocephalic FACE & SINUS: normal facial exam Eye: COMMON NORMALS: conjunctivae normal GENERAL EYE: appearance normal, both eyes and all related structures CONJUNCTIVA: Yes conjunctivae normal Neck/C-Spine: COMMON NORMALS: no JVD Chest: COMMONS NORMALS: normal inspection of the chest Resp: COMMON NORMALS: normal respiratory effort and clear to auscultation bilaterally AUSCULTATION: clear to auscultation bilaterally Cardio: COMMON NORMALS: no JVD, regular rate and regular rhythm RATE: regular rate RHYTHM: regular rhythm GI: COMMON NORMALS: Normal to inspection, nondistended, normoactive bowel sounds present : SCROTUM: Yes testes descended bilaterally TESTES: Yes testicular lie normal Back/Pelvis: LUMBAR SPINE/LOWER BACK: Yes normal to inspection, Yes straight leg raise positive right Straight leg raise positive details right: at 30 degrees and Yes straight leg raise positive left Straight leg raise positive details left: at 30 degrees Extremity: COMMON NORMALS: normal to inspection and full ROM Neuro: COMMON NORMALS: patient oriented x3, moves all extremities, no focal motor deficits and no sensory deficits noted Course Vital Signs: Vital signs: Vital Signs Temperature 98 F 10/13/20 17:15 Pulse Rate 75 10/13/20 18:41 Respiratory Rate 16 10/13/20 18:41 Blood Pressure 147/86 10/13/20 18:41 Pulse Oximetry 98 10/13/20 18:41 MDM - Back Pain/Injury MDM Narrative: Medical decision making narrative: Patient was sleeping room good part of the visit. Was able ambulate from the room after discharge diet difficulty. Patient instructed follow-up primary care provider for any further pain medicine and keep appointment for his MRI. Discharge Plan Discharge Patient Disposition: Home Clinical Impression: Low back pain Qualifiers: Chronicity: chronic Back pain laterality: midline Sciatica presence: without sciatica Qualified Code(s): M54.5 - Low back pain Condition: Stable Prescriptions: New Celebrex 100 mg capsule 100 mg PO BID Qty: 20 RF: 0 Discontinued diclofenac potassium 50 mg tablet 50 mg PO Q8H PRN (Reason: pain) Qty: 12 RF: 0 No Action cyclobenzaprine 10 mg tablet 10 mg PO Q8H PRN (Reason: muscle spasm, back pain) Qty: 20 RF: 0 Lantus Solostar U-100 Insulin 100 unit/mL (3 mL) insulin pen See Rx Instructions .ROUTE .COMPLEX RF: 0 Naprosyn 500 mg tablet 500 mg PO BID PRN (Reason: pain) Qty: 20 RF: 0 Discharge Orders: Discharge ED (Routine); Ordered 10/13/20 Ordered By: Surendra Marcum Discharge Diet: Usual diet Discharge Activity: Increase activity as tolerated Patient Instructions: Chronic Back Pain (ED) Activity Restrictions/Additional Instructions: Follow-up with medical provider as directed. Take medications as prescribed. Return to the ER or your medical provider if condition worsens. Please read and understand discharge instructions. If any questions ask please. No heavy lifting. Apply ice to back as needed. Keep appointment for MRI. Coding Level of Care Code ED [employer] for Janis Fwd Exam Comprehensive
[2020-10-13] MEDS: methylPREDNISolone (DEPO) 40 mg/mL INJ 1 mL IM (18:17)
[2020-10-13] MEDS: ketorolac 60 mg/2 mL INJ IM (18:17)
[2020-10-13 18:41] VITALS: BP 147/86; PULSE 75; RESP 16; O2SAT 98
== END 2020-10-13 18:42 | disposition home or self-care (01) ==
LOC: ER 18:40
PROVIDERS: Emergency Provider Nurse Practitioner Family
DX: G89.29 Other chronic pain (principal); M54.5 Low back pain; Z79.4 Long term (current) use of insulin; I25.10 Atherosclerotic heart disease of native coronary artery without angina pectoris; E11.9 Type 2 diabetes mellitus without complications; Z86.19 Personal history of other infectious and parasitic diseases; I10 Essential (primary) hypertension
CPT/HCPCS: 96372; 99283; J1030; J1885

== ENCOUNTER 2020-10-19 21:24 | Emergency (ER) | payer BC, SELFPAY ==
[2020-10-19 21:38] VITALS: BP 136/85; PULSE 105; RESP 20; TEMP 36.8; O2SAT 98
--- NOTE | 2020-10-19 21:49 | CTR_ITS ---
PROCEDURE INFORMATION: Exam: CT Abdomen And Pelvis With Contrast Exam date and time: 10/19/2020 9:52 PM Age: 50 years old Clinical indication: Abdominal pain; Localized; Lower; Prior surgery; Surgery type: Heart. ; Patient HX: C/O testicular pain. History of umbilical and inguinal hernia; Additional info: Bilateral inguinal hernia; Umbilical hernia. Testicle pain TECHNIQUE: Imaging protocol: Computed tomography of the abdomen and pelvis with contrast. Radiation optimization: All CT scans at this facility use at least one of these dose optimization techniques: automated exposure control; mA and/or kV adjustment per patient size (includes targeted exams where dose is matched to clinical indication); or iterative reconstruction. Contrast material: OMNI 300; Contrast volume: 95 ml; Contrast route: INTRAVENOUS (IV); COMPARISON: CT abdomen pelvis w con* [id number] 12/19/2019 2:35 PM RADIATION DOSE METRICS: Total DLP (mGy-cm): 1913.52 FINDINGS: Lungs: The lung bases appear unremarkable. Liver: The liver is unremarkable in appearance. Gallbladder and bile ducts: The gallbladder is contracted. No calcified gallstones demonstrated. Pancreas: The pancreas is normal in appearance. No pancreatic duct dilatation. Spleen: The spleen is normal in size and appearance. Adrenal glands: The adrenal glands appear within normal limits. Kidneys and ureters: The kidneys are normal in morphology. No hydronephrosis. No solid mass. Stomach and bowel: No acute gastric abnormality demonstrated. The small bowel is unremarkable as demonstrated. Moderate retained stool throughout the colon. No inflammation of the colon noted. Appendix: The appendix is normal in appearance. No evidence of appendicitis. Intraperitoneal space: No pneumoperitoneum. No significant fluid collection. Vasculature: Mild atherosclerosis of the iliac arteries. The aorta and iliac arteries are normal in caliber. Lymph nodes: No pathologically enlarged lymph nodes are demonstrated. Urinary bladder: The urinary bladder is unremarkable in appearance. Reproductive: Scrotum is included in the field of view. The testes are unremarkable as demonstrated. Bones/joints: Transitional vertebral anatomy noted with partial lumbarization of S1. There is a rudimentary S1-2 disc noted. Severe intervertebral disc narrowing of the designated L5-S1 disc space. Lytic changes of the L5 and S1 endplates are noted. There is edema in the paraspinous soft tissues. Soft tissues: Small bilateral inguinal hernias identified, containing only fat. CT/CT abdomen pelvis w con* [id number] IMPRESSION: 1. Severe intervertebral disc narrowing of the designated L5-S1 disc space. Lytic changes of the L5 and S1 endplates are noted. There is edema in the paraspinous soft tissues. Findings are consistent with discitis with phlegmon at the designated L5-S1 level. No drainable abscess appreciated. These findings are new when compared to 12/19/2019. 2. Small bilateral inguinal hernias identified, containing only fat. 3. No focal abnormality of the scrotum demonstrated. Radiation Dose CTDIVOL = (mGy): DLP = 1913.52 (mGy-cm)
[2020-10-19 21:52] LABS: Amphetamines Screen Urine Negative (Negative); Barbiturates Screen Urine Negative (Negative); Benzodiazepines Screen Urine Negative (Negative); Cocaine Screen Urine Negative (Negative); Opiate Screen Urine Negative (Negative); PCP Screen Urine Negative (Negative); THC Screen Urine Positive (Negative)
--- NOTE | 2020-10-19 21:52 | ECG_ITS ---
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 Measurements Intervals Mason Rate: 101 P: 48 MT: 165 QRS: 57 QRSD: 86 T: 75 QT: 325 QTc: 423 Interpretive Statements SINUS TACHYCARDIA Compared to ECG 09/30/2020 16:05:50 No significant changes Electronically Signed On 10-20-2020 16:49:31 CDT by Deny Denny M.D. [id number]
[2020-10-19 22:02] LABS: Basophils % 0.3 %; Eosinophils % 0.2 %; Hematocrit 34.3 % (42.0-52.0); Hemoglobin 11.3 g/dL (11.7-16.6); Lymphocytes # 1.4 10^3/uL (0.8-4.8); Lymphocytes % 13.7 %; Mean Corpuscular HGB Conc 32.9 g/dL (30.0-36.0); Mean Corpuscular Volume 84.9 fL (80-94); Monocytes # 0.4 10^3/uL (0.2-0.9); Neutrophils # 8.25 10^3/uL (1.8-7.7); Neutrophils % 81.3 %; Nucleated Red Blood Cells % 0 %; Platelet Count 254 10^3/cmm (130-400); Red Blood Count 4.04 10^6/uL (4.1-5.3); White Blood Count 10.2 10^3/uL (4.0-10.0)
[2020-10-19 22:20] LABS: Add Urine Microscopic? NO; Charge for UA Resulting for Rev
[2020-10-19] MEDS: water for injection-sterile 10 ML (22:20)
[2020-10-19] MEDS: ziprasidone 20 mg/mL SDV 10 MG IM (22:20)
[2020-10-19 22:25] VITALS: BP 135/76; PULSE 95; RESP 17; O2SAT 97
[2020-10-19 22:25] LABS: Bilirubin Urine Neg (Negative); Blood Urine Neg (Negative); Glucose Urine UA 4+ (Normal); Ketones Urine Negative (Negative); Leukocyte Esterase Urine Negative (Negative); Nitrate Urine Negative (Negative); Protein Urine Neg (Negative); Specific Gravity, Urine 1.005 (1.005-1.030); Urine Appearance Clear (CLEAR); Urine Color Yellow (Yellow); Urobilinogen Urine Norm (Negative); pH Urine 6.5 (5-7)
[2020-10-19] MEDS: sodium chloride 0.9% 1,000 ML 999 ML IV (22:26)
[2020-10-19 22:31] LABS: Troponin(5th) Baseline 7 ng/L (0-15)
[2020-10-19 22:38] LABS: Slide Review Slide Review Perform
[2020-10-19 22:40] LABS: Acetaminophen 6.8 ug/mL (10-30); Alanine Aminotransferase 12 U/L (0-41); Albumin Level 3.7 g/dL (3.5-5.2); Alkaline Phosphatase 186 IU/L (40-130); Aspartate Amino Transferase 7 U/L (0-40); Blood Urea Nitrogen 17 mg/dL (6-20); Calcium 8.3 mg/dL (8.5-10.5); Carbon Dioxide 21 mmol/L (22-29); Chloride 92 mmol/L (98-107); Globulin 2.7 g/dL (1.3-4.6); Glomerular Filtration Rate 103.2 mL/min (90-130); Osmolality Calculated 294 mOsm/kg (285-295); Sodium 127 mmol/L (136-145); Thyroid Stimulating Hormone 1.38 uIU/mL (0.27-4.20); Total Bilirubin 0.2 mg/dL (0.15-1.2); Total Protein 6.4 g/dL (6.6-8.7)
[2020-10-19 22:42] LABS: Alcohol Level < 10 mg/dL (0-10); Salicylate < 0.3 mg/dL (3-10)
[2020-10-19 22:43] LABS: Glucose 610 mg/dL (65-115)
--- NOTE | 2020-10-19 23:07 | PC.NURSE ---
patient report received from STANFORD Denson and care transferred to STANFORD Salazar
[2020-10-19] MEDS: insulin regular-human 100 units/1 mL 10 UNIT IVP (23:16)
[2020-10-19] MEDS: iohexol 300 mg/mL 100 mL Btl IV (23:16)
--- NOTE | 2020-10-19 23:20 | W.ED.PSYCH ---
Documented by User: Giovany Chang MD 10/20/20 11:14 HPI - Psych General: Chief Complaint: Psychiatric Symptoms Stated Complaint: 96 Hour Hold Time Seen by Provider: 10/19/20 21:35 History of Present Illness: HPI Narrative: The patient is a 50-year-old male with past medical history diabetes, schizophrenia, and polysubstance abuse who comes to the ER with a 96-hour hold after making suicidal and homicidal complaints. He also complains of bilateral testicle pain and that he has been urinating all over himself. He says he has bilateral inguinal hernias which are painful and an umbilical hernia which is also tender. He is behaving bizarrely on arrival and admits to hearing things that are not there as well is acting severely manic. He admits to methamphetamine abuse yesterday. complaint: suicidal ideation Duration: constant History of same: Yes Context: recent drug abuse Associated psychiatric symptoms: suicidal ideation, homicidal ideation and auditory hallucinations Associated symptoms: Reports auditory hallucinations If self harm: admits thoughts of self harm Review of Systems General: Reports: 10 or more systems reviewed and unremarkable except in HPI and below Const: Denies: fatigue Eyes: Denies: change in vision, blurry vision or eye redness ENMT: Denies: throat pain, swelling of lips/tongue, ear or mastoid pain or nasal congestion Card: Denies: chest pain, palpitations, irregular heart rhythm, edema, dyspnea on exertion or orthopnea Resp: Denies: dyspnea, productive cough or non-productive cough GI: Denies: abdominal pain, diarrhea or GI cramping : Reports: testicular pain and other (Inguinal hernia pain bilaterally and umbilical hernia pain); Denies: flank pain, urinary frequency or urinary urgency Musc: Denies: neck pain, back pain, extremity pain, joint pain, joint redness, limited range of motion or muscle weakness Skin/Breast: Denies: rash, pruritus, erythema, skin pain or skin tenderness Neuro: Denies: headache(s), numbness in extremities, weakness in extremities, sensory changes, difficulty walking, dizziness, confusion or Slurred speech present Psych: Reports: auditory hallucinations Endo: Denies: polyuria All/Imm: Denies: urticaria, throat swelling or tongue swelling [facility] ED PFSH: Medical History (Updated 10/20/20 @ 00:59 by Jaylyn Vera MD) Bowel obstruction CAD (coronary artery disease) Diabetes Hepatitis C History of bacterial endocarditis Hypertension Surgical History History of aortic valve replacement with bioprosthetic valve History of heart valve replacement History of mitral valve replacement with bioprosthetic valve Family History (Updated 07/12/20 @ 13:14 by Khari Miranda MD) Other Diabetes No significant family history Social History Smoking and tobacco status: never smoked Alcohol intake: current Alcohol intake frequency: holidays/special occasions only Housing: Other Details: Homeless Current occupational status: unemployed Physical Exam Const: COMMON NORMALS: patient oriented x3 and alert GENERAL APPEARANCE: anxious and disheveled ORIENTATION/CONSCIOUSNESS: Yes oriented to person, Yes oriented to place and Yes oriented to time OTHER: He cannot hold still and is clearly under the influence of methamphetamines. Anxious and fidgeting. He will not hold still for blood draw or IV placement. He is hearing auditory hallucinations. Admits suicidal and homicidal ideation. HENMT: COMMON NORMALS: normocephalic, external ears normal and Normal external nose present HEAD & SCALP: normal to inspection and normocephalic NOSE: Normal external nose present EXTERNAL EAR: Yes external ears normal MOUTH: Normal oral and palatal mucosa present THROAT: posterior oropharynx normal Eye: COMMON NORMALS: Equal, round and reactive pupils present and EOMs intact bilaterally GENERAL EYE: appearance normal, both eyes and all related structures PUPIL: Yes Equal, round and reactive pupils present Neck/C-Spine: COMMON NORMALS: full ROM, no lymphadenopathy, no meningeal signs and no JVD GENERAL: Yes normal visual inspection Lymph: LYMPHATIC: no lymphadenopathy noted Chest: COMMONS NORMALS: normal inspection of the chest and normal palpation of entire chest wall Resp: COMMON NORMALS: normal respiratory effort, No retractions, No use of accessory muscles, clear to auscultation bilaterally and percussion normal EFFORT & INSPECTION: Yes able to speak in complete sentences AUSCULTATION: clear to auscultation bilaterally PERCUSSION: percussion normal Cardio: COMMON NORMALS: no JVD, regular rhythm, S1 normal heart sound present, S2 normal heart sound present and Peripheral pulses 2+ throughout RATE: tachycardic RHYTHM: regular rhythm HEART SOUNDS: S1 normal heart sound present and S2 normal heart sound present PERIPHERAL PULSES: Peripheral pulses 2+ throughout GI: COMMON NORMALS: Normal to inspection, nondistended, normoactive bowel sounds present, Soft to palpation, non-tender and no masses INSPECTION: Yes normal to inspection PALPATION: Yes Soft to palpation OTHER: He has an umbilical hernia present which is tender to palpation. : COMMON NORMALS: Yes no CVA tenderness BLADDER/KIDNEY EXAM: Yes no CVA tenderness OTHER: Tenderness bilateral testicles and he has inguinal hernias present bilaterally as well which are also tender. Back/Pelvis: COMMON NORMALS: no CVA tenderness, thoracic and lumbar spine normal to inspection, no thoracic nor lumbar tenderness and thoraco-lumbar ROM normal Extremity: COMMON NORMALS: normal to inspection, full ROM, capillary refill normal, no joint enlargement and no pedal edema GENERAL: Yes normal exam except as noted Neuro: COMMON NORMALS: patient oriented x3, CN's II-XII intact bilaterally, moves all extremities, no focal motor deficits, no sensory deficits noted and gait normal SENSORIUM/ORIENTATION: Yes alert, Yes oriented to person, Yes oriented to place and Yes oriented to time MENINGEAL SIGNS: Yes no meningeal signs Skin: COMMON NORMALS: no rashes or lesions noted GENERAL SKIN EXAM: no rashes or lesions noted Course Vital Signs: Vital signs: Vital Signs Temperature 98.3 F 10/19/20 21:38 Pulse Rate 100 10/20/20 03:41 Respiratory Rate 19 H 10/20/20 04:18 Blood Pressure 138/69 10/20/20 03:41 Pulse Oximetry 93 10/20/20 04:18 MDM - Psych MDM Narrative: Medical decision making narrative: RateThe patient is a 50-year-old male with schizophrenia, polysubstance abuse, diabetes noncompliant with his medications. He came in complaining of bilateral testicle and inguinal hernia pain as well as umbilical hernia. He is also a 96-hour hold for suicidal and homicidal remarks. He is clearly under the influence of methamphetamines and was given Geodon to help as he would not IV placement and any procedures that need to be done to work him up. Glucose fingerstick read high on arrival. CMP shows glucose of 610. He was started on IV fluids and insulin and other tests ordered. Discussed with Dr. Vera and will transition care at shift change. Lab Data: Labs: Lab Results 10/19/20 10/19/20 10/19/20 Range/Units 00:33 21:30 21:30 WBC (4.0-10.0) 10^3/ uL RBC (4.1-5.3) 10^6/u L Hgb (11.7-16.6) g/dL Hct (42.0-52.0) % MCV (80-94) fL MCH (28.0-34.0) pg MCHC (30.0-36.0) g/dL RDW (12.1-15.1) % Plt Count (130-400) 10^3/c mm MPV (7.4-10.4) fL Neut % (Auto) % Lymph % (Auto) % [place] % (Auto) % Eos % (Auto) % Baso % (Auto) % Neut # (Auto) (1.8-7.7) 10^3/u L Lymph # (Auto) (0.8-4.8) 10^3/u L [place] # (Auto) (0.2-0.9) 10^3/u L Eos # (Auto) (0.0-0.8) 10^3/u L Baso # (Auto) (0.0-0.1) 10^3/u L Nucleated RBC % (a uto) % Nucleated RBCs # /100WBC ESR (0-10) mm/hr Specimen Type Arterial Sample Site Radial, left ABG pH 7.51 H (7.35-7.45) ABG pCO2 30.7 L (35-45) mmHg ABG pO2 74.9 L (80.0-100.0) mmH g ABG HCO3 24.6 (22-26) mmol/L ABG O2 Saturation 94.8 ABG Base Excess 2.1 H (-2.0-2.0) mmol/ L Evan Test Pos A-a O2 Gradient 4.9 L (5-10) mmHg Hematocrit 35.3 L (42-52) % Hgb O2 Saturation 94.0 L (95-100) % Carboxyhemoglobin < 0.0 L (0.4-20.1) %THgb Methemoglobin 1.0 (0.4-1.5) % Total Hemoglobin 11.5 L (14-18) g/dL Sodium 132.0 (131-143) mmol/L Potassium 4.4 (3.5-5.0) mmol/L Glucose 308.0 H (70-115) mg/dL Ionized Calcium 1.2 (1.1-1.4) mmol/L O2 Delivery Device None FiO2 21.0 % Double End Tenoner Operator ID [id number] Chloride (98-107) mmol/L Carbon Dioxide (22-29) mmol/L Anion Gap (5-19) BUN (6-20) mg/dL Creatinine (0.7-1.2) mg/dL GFR Calculation (90-130) mL/min Calculated Osmolal ity (285-295) mOsm/k g Calcium (8.5-10.5) mg/dL Total Bilirubin (0.15-1.2) mg/dL AST (0-40) U/L ALT (0-41) U/L Alkaline Phosphata se (40-130) IU/L Troponin T Baselin e (0-15) ng/L Troponin T 120 Min [place] (0-15) ng/L Delta Troponin T (0-10) ABS# C-Reactive Protein (0.0-4.9) mg/L Total Protein (6.6-8.7) g/dL Albumin (3.5-5.2) g/dL Globulin (1.3-4.6) g/dL TSH (0.27-4.20) uIU/ mL Urine Color Yellow (Yellow) Urine Appearance Clear (CLEAR) Urine pH 6.5 (5-7) Ur Specific Gravit y 1.005 (1.005-1.030) Urine Protein Neg (Negative) Urine Glucose (UA) 4+ H (Normal) Urine Ketones Negative (Negative) Urine Blood Neg (Negative) Urine Nitrate Negative (Negative) Urine Bilirubin Neg (Negative) Urine Urobilinogen Norm (Negative) mg/dL Ur Leukocyte Sarah ase Negative (Negative) Salicylates (3-10) mg/dL Urine Opiates Scre en Negative (Negative) ng/mL Acetaminophen (10-30) ug/mL Ur Barbiturates Sc reen Negative (Negative) ng/mL Ur Phencyclidine S crn Negative (Negative) ng/mL Ur Amphetamines Sc reen Negative (Negative) ng/mL U Benzodiazepines Scrn Negative (Negative) ng/mL Urine Cocaine Scre en Negative (Negative) ng/mL U Marijuana (THC) Screen Positive H (Negative) ng/mL Ethyl Alcohol (0-10) mg/dL SARS-CoV-2 Ag (Rap id) (Negative) 10/19/20 10/19/20 10/19/20 Range/Units 22:00 22:00 22:00 WBC 10.2 H (4.0-10.0) 10^3/ uL RBC 4.04 L (4.1-5.3) 10^6/u L Hgb 11.3 L (11.7-16.6) g/dL Hct 34.3 L (42.0-52.0) % MCV 84.9 (80-94) fL MCH 28.0 (28.0-34.0) pg MCHC 32.9 (30.0-36.0) g/dL RDW 13.0 (12.1-15.1) % Plt Count 254 (130-400) 10^3/c mm MPV 11.0 H (7.4-10.4) fL Neut % (Auto) 81.3 % Lymph % (Auto) 13.7 % [place] % (Auto) 4.0 % Eos % (Auto) 0.2 % Baso % (Auto) 0.3 % Neut # (Auto) 8.25 H (1.8-7.7) 10^3/u L Lymph # (Auto) 1.4 (0.8-4.8) 10^3/u L [place] # (Auto) 0.4 (0.2-0.9) 10^3/u L Eos # (Auto) 0.0 (0.0-0.8) 10^3/u L Baso # (Auto) 0.0 (0.0-0.1) 10^3/u L Nucleated RBC % (a uto) 0 % Nucleated RBCs # 0.0 /100WBC ESR (0-10) mm/hr Specimen Type Sample Site ABG pH (7.35-7.45) ABG pCO2 (35-45) mmHg ABG pO2 (80.0-100.0) mmH g ABG HCO3 (22-26) mmol/L ABG O2 Saturation ABG Base Excess (-2.0-2.0) mmol/ L Evan Test A-a O2 Gradient (5-10) mmHg Hematocrit (42-52) % Hgb O2 Saturation (95-100) % Carboxyhemoglobin (0.4-20.1) %THgb Methemoglobin (0.4-1.5) % Total Hemoglobin (14-18) g/dL Sodium 127 L (131-143) mmol/L Potassium 5.0 (3.5-5.0) mmol/L Glucose 610 H* (70-115) mg/dL Ionized Calcium (1.1-1.4) mmol/L O2 Delivery Device FiO2 % Double End Tenoner Operator ID Chloride 92 L (98-107) mmol/L Carbon Dioxide 21 L (22-29) mmol/L Anion Gap 19.0 (5-19) BUN 17 (6-20) mg/dL Creatinine 0.8 (0.7-1.2) mg/dL GFR Calculation 103.2 (90-130) mL/min Calculated Osmolal ity 294 (285-295) mOsm/k g Calcium 8.3 L (8.5-10.5) mg/dL Total Bilirubin 0.2 (0.15-1.2) mg/dL AST 7 (0-40) U/L ALT 12 (0-41) U/L Alkaline Phosphata se 186 H (40-130) IU/L Troponin T Baselin e 7 (0-15) ng/L Troponin T 120 Min [place] (0-15) ng/L Delta Troponin T (0-10) ABS# C-Reactive Protein (0.0-4.9) mg/L Total Protein 6.4 L (6.6-8.7) g/dL Albumin 3.7 (3.5-5.2) g/dL Globulin 2.7 (1.3-4.6) g/dL TSH 1.38 (0.27-4.20) uIU/ mL Urine Color (Yellow) Urine Appearance (CLEAR) Urine pH (5-7) Ur Specific Gravit y (1.005-1.030) Urine Protein (Negative) Urine Glucose (UA) (Normal) Urine Ketones (Negative) Urine Blood (Negative) Urine Nitrate (Negative) Urine Bilirubin (Negative) Urine Urobilinogen (Negative) mg/dL Ur Leukocyte Sarah ase (Negative) Salicylates < 0.3 L (3-10) mg/dL Urine Opiates Scre en (Negative) ng/mL Acetaminophen 6.8 L (10-30) ug/mL Ur Barbiturates Sc reen (Negative) ng/mL Ur Phencyclidine S crn (Negative) ng/mL Ur Amphetamines Sc reen (Negative) ng/mL U Benzodiazepines Scrn (Negative) ng/mL Urine Cocaine Scre en (Negative) ng/mL U Marijuana (THC) Screen (Negative) ng/mL Ethyl Alcohol < 10 (0-10) mg/dL SARS-CoV-2 Ag (Rap id) (Negative) 10/19/20 10/19/20 10/19/20 Range/Units 22:00 23:53 23:53 WBC (4.0-10.0) 10^3/ uL RBC (4.1-5.3) 10^6/u L Hgb (11.7-16.6) g/dL Hct (42.0-52.0) % MCV (80-94) fL MCH (28.0-34.0) pg MCHC (30.0-36.0) g/dL RDW (12.1-15.1) % Plt Count (130-400) 10^3/c mm MPV (7.4-10.4) fL Neut % (Auto) % Lymph % (Auto) % [place] % (Auto) % Eos % (Auto) % Baso % (Auto) % Neut # (Auto) (1.8-7.7) 10^3/u L Lymph # (Auto) (0.8-4.8) 10^3/u L [place] # (Auto) (0.2-0.9) 10^3/u L Eos # (Auto) (0.0-0.8) 10^3/u L Baso # (Auto) (0.0-0.1) 10^3/u L Nucleated RBC % (a uto) % Nucleated RBCs # /100WBC ESR 54 H (0-10) mm/hr Specimen Type Sample Site ABG pH (7.35-7.45) ABG pCO2 (35-45) mmHg ABG pO2 (80.0-100.0) mmH g ABG HCO3 (22-26) mmol/L ABG O2 Saturation ABG Base Excess (-2.0-2.0) mmol/ L Evan Test A-a O2 Gradient (5-10) mmHg Hematocrit (42-52) % Hgb O2 Saturation (95-100) % Carboxyhemoglobin (0.4-20.1) %THgb Methemoglobin (0.4-1.5) % Total Hemoglobin (14-18) g/dL Sodium (131-143) mmol/L Potassium (3.5-5.0) mmol/L Glucose (70-115) mg/dL Ionized Calcium (1.1-1.4) mmol/L O2 Delivery Device FiO2 % Double End Tenoner Operator ID Chloride (98-107) mmol/L Carbon Dioxide (22-29) mmol/L Anion Gap (5-19) BUN (6-20) mg/dL Creatinine (0.7-1.2) mg/dL GFR Calculation (90-130) mL/min Calculated Osmolal ity (285-295) mOsm/k g Calcium (8.5-10.5) mg/dL Total Bilirubin (0.15-1.2) mg/dL AST (0-40) U/L ALT (0-41) U/L Alkaline Phosphata se (40-130) IU/L Troponin T Baselin e (0-15) ng/L Troponin T 120 Min [place] 7.54 (0-15) ng/L Delta Troponin T 0.54 (0-10) ABS# C-Reactive Protein 45.7 H (0.0-4.9) mg/L Total Protein (6.6-8.7) g/dL Albumin (3.5-5.2) g/dL Globulin (1.3-4.6) g/dL TSH (0.27-4.20) uIU/ mL Urine Color (Yellow) Urine Appearance (CLEAR) Urine pH (5-7) Ur Specific Gravit y (1.005-1.030) Urine Protein (Negative) Urine Glucose (UA) (Normal) Urine Ketones (Negative) Urine Blood (Negative) Urine Nitrate (Negative) Urine Bilirubin (Negative) Urine Urobilinogen (Negative) mg/dL Ur Leukocyte Sarah ase (Negative) Salicylates (3-10) mg/dL Urine Opiates Scre en (Negative) ng/mL Acetaminophen (10-30) ug/mL Ur Barbiturates Sc reen (Negative) ng/mL Ur Phencyclidine S crn (Negative) ng/mL Ur Amphetamines Sc reen (Negative) ng/mL U Benzodiazepines Scrn (Negative) ng/mL Urine Cocaine Scre en (Negative) ng/mL U Marijuana (THC) Screen (Negative) ng/mL Ethyl Alcohol (0-10) mg/dL SARS-CoV-2 Ag (Rap id) (Negative) 10/20/20 Range/Units 01:10 WBC (4.0-10.0) 10^3/ uL RBC (4.1-5.3) 10^6/u L Hgb (11.7-16.6) g/dL Hct (42.0-52.0) % MCV (80-94) fL MCH (28.0-34.0) pg MCHC (30.0-36.0) g/dL RDW (12.1-15.1) % Plt Count (130-400) 10^3/c mm MPV (7.4-10.4) fL Neut % (Auto) % Lymph % (Auto) % [place] % (Auto) % Eos % (Auto) % Baso % (Auto) % Neut # (Auto) (1.8-7.7) 10^3/u L Lymph # (Auto) (0.8-4.8) 10^3/u L [place] # (Auto) (0.2-0.9) 10^3/u L Eos # (Auto) (0.0-0.8) 10^3/u L Baso # (Auto) (0.0-0.1) 10^3/u L Nucleated RBC % (a uto) % Nucleated RBCs # /100WBC ESR (0-10) mm/hr Specimen Type Sample Site ABG pH (7.35-7.45) ABG pCO2 (35-45) mmHg ABG pO2 (80.0-100.0) mmH g ABG HCO3 (22-26) mmol/L ABG O2 Saturation ABG Base Excess (-2.0-2.0) mmol/ L Evan Test A-a O2 Gradient (5-10) mmHg Hematocrit (42-52) % Hgb O2 Saturation (95-100) % Carboxyhemoglobin (0.4-20.1) %THgb Methemoglobin (0.4-1.5) % Total Hemoglobin (14-18) g/dL Sodium (131-143) mmol/L Potassium (3.5-5.0) mmol/L Glucose (70-115) mg/dL Ionized Calcium (1.1-1.4) mmol/L O2 Delivery Device FiO2 % Double End Tenoner Operator ID Chloride (98-107) mmol/L Carbon Dioxide (22-29) mmol/L Anion Gap (5-19) BUN (6-20) mg/dL Creatinine (0.7-1.2) mg/dL GFR Calculation (90-130) mL/min Calculated Osmolal ity (285-295) mOsm/k g Calcium (8.5-10.5) mg/dL Total Bilirubin (0.15-1.2) mg/dL AST (0-40) U/L ALT (0-41) U/L Alkaline Phosphata se (40-130) IU/L Troponin T Baselin e (0-15) ng/L Troponin T 120 Min [place] (0-15) ng/L Delta Troponin T (0-10) ABS# C-Reactive Protein (0.0-4.9) mg/L Total Protein (6.6-8.7) g/dL Albumin (3.5-5.2) g/dL Globulin (1.3-4.6) g/dL TSH (0.27-4.20) uIU/ mL Urine Color (Yellow) Urine Appearance (CLEAR) Urine pH (5-7) Ur Specific Gravit y (1.005-1.030) Urine Protein (Negative) Urine Glucose (UA) (Normal) Urine Ketones (Negative) Urine Blood (Negative) Urine Nitrate (Negative) Urine Bilirubin (Negative) Urine Urobilinogen (Negative) mg/dL Ur Leukocyte Sarah ase (Negative) Salicylates (3-10) mg/dL Urine Opiates Scre en (Negative) ng/mL Acetaminophen (10-30) ug/mL Ur Barbiturates Sc reen (Negative) ng/mL Ur Phencyclidine S crn (Negative) ng/mL Ur Amphetamines Sc reen (Negative) ng/mL U Benzodiazepines Scrn (Negative) ng/mL Urine Cocaine Scre en (Negative) ng/mL U Marijuana (THC) Screen (Negative) ng/mL Ethyl Alcohol (0-10) mg/dL SARS-CoV-2 Ag (Rap id) Negative (Negative) Discharge Plan Discharge Patient Disposition: Xfer Short-Term Hosp Clinical Impression: Schizophrenia, Suicidal ideation, Homicidal ideation, Acute hyperglycemia, Discitis of lumbar region Condition: Stable Coding Level of Care Code ED Director Of Digital Marketing for Chg Fwd Exam Comprehensive Documented by User: Jaylyn Vera MD 10/20/20 00:58 HPI - Psych General: Chief Complaint: Psychiatric Symptoms Stated Complaint: 96 Hour Hold Time Seen by Provider: 10/19/20 21:35 PFSH ED PFSH: Medical History (Updated 10/20/20 @ 00:59 by Jaylyn Vera MD) Bowel obstruction CAD (coronary artery disease) Diabetes Hepatitis C History of bacterial endocarditis Hypertension Surgical History History of aortic valve replacement with bioprosthetic valve History of heart valve replacement History of mitral valve replacement with bioprosthetic valve Family History (Updated 07/12/20 @ 13:14 by Khari Miranda MD) Other Diabetes No significant family history Social History Smoking and tobacco status: never smoked Alcohol intake: current Alcohol intake frequency: holidays/special occasions only Housing: Other Details: Homeless Current occupational status: unemployed Course Vital Signs: Vital signs: Vital Signs Temperature 98.3 F 10/19/20 21:38 Pulse Rate 100 10/20/20 03:41 Respiratory Rate 19 H 10/20/20 04:18 Blood Pressure 138/69 10/20/20 03:41 Pulse Oximetry 93 10/20/20 04:18 MDM - Psych MDM Narrative: Medical decision making narrative: Patient presents for suicidal ideations is under a 96-hour hold. Patient did have hyperglycemia and is a diabetic. He is not DKA and his original blood sugar is 600 and is down to 287 currently. I feel he is stable to be admitted to the psychiatric diallo. I did speak to hospitalist will consult them to help manage his diabetes. Lab Data: Labs: Lab Results 10/19/20 10/19/20 10/19/20 Range/Units 00:33 21:30 21:30 WBC (4.0-10.0) 10^3/ uL RBC (4.1-5.3) 10^6/u L Hgb (11.7-16.6) g/dL Hct (42.0-52.0) % MCV (80-94) fL MCH (28.0-34.0) pg MCHC (30.0-36.0) g/dL RDW (12.1-15.1) % Plt Count (130-400) 10^3/c mm MPV (7.4-10.4) fL Neut % (Auto) % Lymph % (Auto) % [place] % (Auto) % Eos % (Auto) % Baso % (Auto) % Neut # (Auto) (1.8-7.7) 10^3/u L Lymph # (Auto) (0.8-4.8) 10^3/u L [place] # (Auto) (0.2-0.9) 10^3/u L Eos # (Auto) (0.0-0.8) 10^3/u L Baso # (Auto) (0.0-0.1) 10^3/u L Nucleated RBC % (a uto) % Nucleated RBCs # /100WBC ESR (0-10) mm/hr Specimen Type Arterial Sample Site Radial, left ABG pH 7.51 H (7.35-7.45) ABG pCO2 30.7 L (35-45) mmHg ABG pO2 74.9 L (80.0-100.0) mmH g ABG HCO3 24.6 (22-26) mmol/L ABG O2 Saturation 94.8 ABG Base Excess 2.1 H (-2.0-2.0) mmol/ L Evan Test Pos A-a O2 Gradient 4.9 L (5-10) mmHg Hematocrit 35.3 L (42-52) % Hgb O2 Saturation 94.0 L (95-100) % Carboxyhemoglobin < 0.0 L (0.4-20.1) %THgb Methemoglobin 1.0 (0.4-1.5) % Total Hemoglobin 11.5 L (14-18) g/dL Sodium 132.0 (131-143) mmol/L Potassium 4.4 (3.5-5.0) mmol/L Glucose 308.0 H (70-115) mg/dL Ionized Calcium 1.2 (1.1-1.4) mmol/L O2 Delivery Device None FiO2 21.0 % Double End Tenoner Operator ID [id number] Chloride (98-107) mmol/L Carbon Dioxide (22-29) mmol/L Anion Gap (5-19) BUN (6-20) mg/dL Creatinine (0.7-1.2) mg/dL GFR Calculation (90-130) mL/min Calculated Osmolal ity (285-295) mOsm/k g Calcium (8.5-10.5) mg/dL Total Bilirubin (0.15-1.2) mg/dL AST (0-40) U/L ALT (0-41) U/L Alkaline Phosphata se (40-130) IU/L Troponin T Baselin e (0-15) ng/L Troponin T 120 Min [place] (0-15) ng/L Delta Troponin T (0-10) ABS# C-Reactive Protein (0.0-4.9) mg/L Total Protein (6.6-8.7) g/dL Albumin (3.5-5.2) g/dL Globulin (1.3-4.6) g/dL TSH (0.27-4.20) uIU/ mL Urine Color Yellow (Yellow) Urine Appearance Clear (CLEAR) Urine pH 6.5 (5-7) Ur Specific Gravit y 1.005 (1.005-1.030) Urine Protein Neg (Negative) Urine Glucose (UA) 4+ H (Normal) Urine Ketones Negative (Negative) Urine Blood Neg (Negative) Urine Nitrate Negative (Negative) Urine Bilirubin Neg (Negative) Urine Urobilinogen Norm (Negative) mg/dL Ur Leukocyte Sarah ase Negative (Negative) Salicylates (3-10) mg/dL Urine Opiates Scre en Negative (Negative) ng/mL Acetaminophen (10-30) ug/mL Ur Barbiturates Sc reen Negative (Negative) ng/mL Ur Phencyclidine S crn Negative (Negative) ng/mL Ur Amphetamines Sc reen Negative (Negative) ng/mL U Benzodiazepines Scrn Negative (Negative) ng/mL Urine Cocaine Scre en Negative (Negative) ng/mL U Marijuana (THC) Screen Positive H (Negative) ng/mL Ethyl Alcohol (0-10) mg/dL SARS-CoV-2 Ag (Rap id) (Negative) 10/19/20 10/19/20 10/19/20 Range/Units 22:00 22:00 22:00 WBC 10.2 H (4.0-10.0) 10^3/ uL RBC 4.04 L (4.1-5.3) 10^6/u L Hgb 11.3 L (11.7-16.6) g/dL Hct 34.3 L (42.0-52.0) % MCV 84.9 (80-94) fL MCH 28.0 (28.0-34.0) pg MCHC 32.9 (30.0-36.0) g/dL RDW 13.0 (12.1-15.1) % Plt Count 254 (130-400) 10^3/c mm MPV 11.0 H (7.4-10.4) fL Neut % (Auto) 81.3 % Lymph % (Auto) 13.7 % [place] % (Auto) 4.0 % Eos % (Auto) 0.2 % Baso % (Auto) 0.3 % Neut # (Auto) 8.25 H (1.8-7.7) 10^3/u L Lymph # (Auto) 1.4 (0.8-4.8) 10^3/u L [place] # (Auto) 0.4 (0.2-0.9) 10^3/u L Eos # (Auto) 0.0 (0.0-0.8) 10^3/u L Baso # (Auto) 0.0 (0.0-0.1) 10^3/u L Nucleated RBC % (a uto) 0 % Nucleated RBCs # 0.0 /100WBC ESR (0-10) mm/hr Specimen Type Sample Site ABG pH (7.35-7.45) ABG pCO2 (35-45) mmHg ABG pO2 (80.0-100.0) mmH g ABG HCO3 (22-26) mmol/L ABG O2 Saturation ABG Base Excess (-2.0-2.0) mmol/ L Evan Test A-a O2 Gradient (5-10) mmHg Hematocrit (42-52) % Hgb O2 Saturation (95-100) % Carboxyhemoglobin (0.4-20.1) %THgb Methemoglobin (0.4-1.5) % Total Hemoglobin (14-18) g/dL Sodium 127 L (131-143) mmol/L Potassium 5.0 (3.5-5.0) mmol/L Glucose 610 H* (70-115) mg/dL Ionized Calcium (1.1-1.4) mmol/L O2 Delivery Device FiO2 % Double End Tenoner Operator ID Chloride 92 L (98-107) mmol/L Carbon Dioxide 21 L (22-29) mmol/L Anion Gap 19.0 (5-19) BUN 17 (6-20) mg/dL Creatinine 0.8 (0.7-1.2) mg/dL GFR Calculation 103.2 (90-130) mL/min Calculated Osmolal ity 294 (285-295) mOsm/k g Calcium 8.3 L (8.5-10.5) mg/dL Total Bilirubin 0.2 (0.15-1.2) mg/dL AST 7 (0-40) U/L ALT 12 (0-41) U/L Alkaline Phosphata se 186 H (40-130) IU/L Troponin T Baselin e 7 (0-15) ng/L Troponin T 120 Min [place] (0-15) ng/L Delta Troponin T (0-10) ABS# C-Reactive Protein (0.0-4.9) mg/L Total Protein 6.4 L (6.6-8.7) g/dL Albumin 3.7 (3.5-5.2) g/dL Globulin 2.7 (1.3-4.6) g/dL TSH 1.38 (0.27-4.20) uIU/ mL Urine Color (Yellow) Urine Appearance (CLEAR) Urine pH (5-7) Ur Specific Gravit y (1.005-1.030) Urine Protein (Negative) Urine Glucose (UA) (Normal) Urine Ketones (Negative) Urine Blood (Negative) Urine Nitrate (Negative) Urine Bilirubin (Negative) Urine Urobilinogen (Negative) mg/dL Ur Leukocyte Sarah ase (Negative) Salicylates < 0.3 L (3-10) mg/dL Urine Opiates Scre en (Negative) ng/mL Acetaminophen 6.8 L (10-30) ug/mL Ur Barbiturates Sc reen (Negative) ng/mL Ur Phencyclidine S crn (Negative) ng/mL Ur Amphetamines Sc reen (Negative) ng/mL U Benzodiazepines Scrn (Negative) ng/mL Urine Cocaine Scre en (Negative) ng/mL U Marijuana (THC) Screen (Negative) ng/mL Ethyl Alcohol < 10 (0-10) mg/dL SARS-CoV-2 Ag (Rap id) (Negative) 10/19/20 10/19/20 10/19/20 Range/Units 22:00 23:53 23:53 WBC (4.0-10.0) 10^3/ uL RBC (4.1-5.3) 10^6/u L Hgb (11.7-16.6) g/dL Hct (42.0-52.0) % MCV (80-94) fL MCH (28.0-34.0) pg MCHC (30.0-36.0) g/dL RDW (12.1-15.1) % Plt Count (130-400) 10^3/c mm MPV (7.4-10.4) fL Neut % (Auto) % Lymph % (Auto) % [place] % (Auto) % Eos % (Auto) % Baso % (Auto) % Neut # (Auto) (1.8-7.7) 10^3/u L Lymph # (Auto) (0.8-4.8) 10^3/u L [place] # (Auto) (0.2-0.9) 10^3/u L Eos # (Auto) (0.0-0.8) 10^3/u L Baso # (Auto) (0.0-0.1) 10^3/u L Nucleated RBC % (a uto) % Nucleated RBCs # /100WBC ESR 54 H (0-10) mm/hr Specimen Type Sample Site ABG pH (7.35-7.45) ABG pCO2 (35-45) mmHg ABG pO2 (80.0-100.0) mmH g ABG HCO3 (22-26) mmol/L ABG O2 Saturation ABG Base Excess (-2.0-2.0) mmol/ L Evan Test A-a O2 Gradient (5-10) mmHg Hematocrit (42-52) % Hgb O2 Saturation (95-100) % Carboxyhemoglobin (0.4-20.1) %THgb Methemoglobin (0.4-1.5) % Total Hemoglobin (14-18) g/dL Sodium (131-143) mmol/L Potassium (3.5-5.0) mmol/L Glucose (70-115) mg/dL Ionized Calcium (1.1-1.4) mmol/L O2 Delivery Device FiO2 % Double End Tenoner Operator ID Chloride (98-107) mmol/L Carbon Dioxide (22-29) mmol/L Anion Gap (5-19) BUN (6-20) mg/dL Creatinine (0.7-1.2) mg/dL GFR Calculation (90-130) mL/min Calculated Osmolal ity (285-295) mOsm/k g Calcium (8.5-10.5) mg/dL Total Bilirubin (0.15-1.2) mg/dL AST (0-40) U/L ALT (0-41) U/L Alkaline Phosphata se (40-130) IU/L Troponin T Baselin e (0-15) ng/L Troponin T 120 Min [place] 7.54 (0-15) ng/L Delta Troponin T 0.54 (0-10) ABS# C-Reactive Protein 45.7 H (0.0-4.9) mg/L Total Protein (6.6-8.7) g/dL Albumin (3.5-5.2) g/dL Globulin (1.3-4.6) g/dL TSH (0.27-4.20) uIU/ mL Urine Color (Yellow) Urine Appearance (CLEAR) Urine pH (5-7) Ur Specific Gravit y (1.005-1.030) Urine Protein (Negative) Urine Glucose (UA) (Normal) Urine Ketones (Negative) Urine Blood (Negative) Urine Nitrate (Negative) Urine Bilirubin (Negative) Urine Urobilinogen (Negative) mg/dL Ur Leukocyte Sarah ase (Negative) Salicylates (3-10) mg/dL Urine Opiates Scre en (Negative) ng/mL Acetaminophen (10-30) ug/mL Ur Barbiturates Sc reen (Negative) ng/mL Ur Phencyclidine S crn (Negative) ng/mL Ur Amphetamines Sc reen (Negative) ng/mL U Benzodiazepines Scrn (Negative) ng/mL Urine Cocaine Scre en (Negative) ng/mL U Marijuana (THC) Screen (Negative) ng/mL Ethyl Alcohol (0-10) mg/dL SARS-CoV-2 Ag (Rap id) (Negative) 10/20/20 Range/Units 01:10 WBC (4.0-10.0) 10^3/ uL RBC (4.1-5.3) 10^6/u L Hgb (11.7-16.6) g/dL Hct (42.0-52.0) % MCV (80-94) fL MCH (28.0-34.0) pg MCHC (30.0-36.0) g/dL RDW (12.1-15.1) % Plt Count (130-400) 10^3/c mm MPV (7.4-10.4) fL Neut % (Auto) % Lymph % (Auto) % [place] % (Auto) % Eos % (Auto) % Baso % (Auto) % Neut # (Auto) (1.8-7.7) 10^3/u L Lymph # (Auto) (0.8-4.8) 10^3/u L [place] # (Auto) (0.2-0.9) 10^3/u L Eos # (Auto) (0.0-0.8) 10^3/u L Baso # (Auto) (0.0-0.1) 10^3/u L Nucleated RBC % (a uto) % Nucleated RBCs # /100WBC ESR (0-10) mm/hr Specimen Type Sample Site ABG pH (7.35-7.45) ABG pCO2 (35-45) mmHg ABG pO2 (80.0-100.0) mmH g ABG HCO3 (22-26) mmol/L ABG O2 Saturation ABG Base Excess (-2.0-2.0) mmol/ L Evan Test A-a O2 Gradient (5-10) mmHg Hematocrit (42-52) % Hgb O2 Saturation (95-100) % Carboxyhemoglobin (0.4-20.1) %THgb Methemoglobin (0.4-1.5) % Total Hemoglobin (14-18) g/dL Sodium (131-143) mmol/L Potassium (3.5-5.0) mmol/L Glucose (70-115) mg/dL Ionized Calcium (1.1-1.4) mmol/L O2 Delivery Device FiO2 % Double End Tenoner Operator ID Chloride (98-107) mmol/L Carbon Dioxide (22-29) mmol/L Anion Gap (5-19) BUN (6-20) mg/dL Creatinine (0.7-1.2) mg/dL GFR Calculation (90-130) mL/min Calculated Osmolal ity (285-295) mOsm/k g Calcium (8.5-10.5) mg/dL Total Bilirubin (0.15-1.2) mg/dL AST (0-40) U/L ALT (0-41) U/L Alkaline Phosphata se (40-130) IU/L Troponin T Baselin e (0-15) ng/L Troponin T 120 Min [place] (0-15) ng/L Delta Troponin T (0-10) ABS# C-Reactive Protein (0.0-4.9) mg/L Total Protein (6.6-8.7) g/dL Albumin (3.5-5.2) g/dL Globulin (1.3-4.6) g/dL TSH (0.27-4.20) uIU/ mL Urine Color (Yellow) Urine Appearance (CLEAR) Urine pH (5-7) Ur Specific Gravit y (1.005-1.030) Urine Protein (Negative) Urine Glucose (UA) (Normal) Urine Ketones (Negative) Urine Blood (Negative) Urine Nitrate (Negative) Urine Bilirubin (Negative) Urine Urobilinogen (Negative) mg/dL Ur Leukocyte Sarah ase (Negative) Salicylates (3-10) mg/dL Urine Opiates Scre en (Negative) ng/mL Acetaminophen (10-30) ug/mL Ur Barbiturates Sc reen (Negative) ng/mL Ur Phencyclidine S crn (Negative) ng/mL Ur Amphetamines Sc reen (Negative) ng/mL U Benzodiazepines Scrn (Negative) ng/mL Urine Cocaine Scre en (Negative) ng/mL U Marijuana (THC) Screen (Negative) ng/mL Ethyl Alcohol (0-10) mg/dL SARS-CoV-2 Ag (Rap id) Negative (Negative) Discharge Plan Discharge Patient Disposition: Xfer Short-Term Hosp Clinical Impression: Schizophrenia, Suicidal ideation, Homicidal ideation, Acute hyperglycemia, Discitis of lumbar region Condition: Stable Coding Level of Care Code ED Director Of Digital Marketing for Janis Fwadam Exam Comprehensive
[2020-10-20 00:18] LABS: Troponin 5 2HR 7.54 ng/L (0-15); Troponin 5 2HR Delta 0.54 ABS# (0-10)
[2020-10-20 00:34] LABS: ABG PCO2 30.7 mmHg (35-45); ABG PH Result 7.51 (7.35-7.45); Alveolar-Arterial Oxygen Gradi 4.9 mmHg (5-10); Arterial Blood Gas Hematocrit 35.3 % (42-52); Base Excess ABG 2.1 mmol/L (-2.0-2.0); Blood Gas Allen Test Pos; Blood Gas Sample Site Radial, left; Blood Gas Sample Type Arterial; Carboxyhemoglobin < 0.0 %THgb (0.4-20.1); HCO3 ABG 24.6 mmol/L (22-26); Ionized Calcium Level - ABG 1.2 mmol/L (1.1-1.4); Oxygen Saturation ABG 94.8; PO2 ABG 74.9 mmHg (80.0-100.0); Potassium Level - ABG 4.4 mmol/L (3.5-5.0); Total Hemoglobin 11.5 g/dL (14-18)
[2020-10-20] MEDS: sodium chloride 0.9% 1,000 ML 999 ML IV (00:37)
[2020-10-20] MEDS: cefTRIAXone 2,000 MG in sodium chloride 0.9% (plus) 50 ML 100 MG IV (00:44)
[2020-10-20 00:47] LABS: C Reactive Protein 45.7 mg/L (0.0-4.9)
[2020-10-20 01:15] LABS: Erythrocyte Sedimentation Rate 54 mm/hr (0-10)
[2020-10-20 01:25] VITALS: BP 124/64; PULSE 105; RESP 22; O2SAT 93
[2020-10-20 01:44] LABS: SARS Covid-2 Antigen Negative (Negative)
[2020-10-20 01:50] VITALS: RESP 17; O2SAT 99
[2020-10-20] MEDS: HYDROmorphone 1 mg/mL INJ 1 mL IVP ×2 (01:50→04:18)
[2020-10-20] MEDS: LORazepam 2 mg/mL INJ 1 mL IVP (03:05)
[2020-10-20 03:06] VITALS: PULSE 103; RESP 19
[2020-10-20 03:41] VITALS: BP 138/69; PULSE 100; RESP 19; O2SAT 92
[2020-10-20 04:18] VITALS: RESP 19; O2SAT 93
[2020-10-20 23:46] LABS: Glucose Point of Care > 600 mg/dL (70-110)
[2020-10-20 23:46] LABS: Glucose Point of Care 282 mg/dL (70-110)
[2020-10-20 23:46] LABS: Glucose Point of Care 519 mg/dL (70-110)
== END 2020-10-20 04:25 | disposition short-term general hospital (02) ==
PROVIDERS: Family Medicine; Emergency Provider Emergency Medicine
DX: R45.851 Suicidal ideations (principal); R45.850 Homicidal ideations; F20.9 Schizophrenia, unspecified; M46.46 Discitis, unspecified, lumbar region; E11.65 Type 2 diabetes mellitus with hyperglycemia; I25.10 Atherosclerotic heart disease of native coronary artery without angina pectoris; Z86.19 Personal history of other infectious and parasitic diseases; I10 Essential (primary) hypertension; Z95.2 Presence of prosthetic heart valve
CPT/HCPCS: 36416; 36600; 74177; 80051; 80053; 80306; 80307; 81003; 82330; 82805; 82962; 84443; 84484; 85025; 85651; 86140; 87426; 93005; 96365; 96366; 96367; 96375; 96376; 99285; J0696; J1170; J1815; J2060; J3370; J3486; J7030; J7040; Q9967

== ENCOUNTER 2020-11-04 17:16 | Emergency (ER) | payer OTHER, MEDICAID, SELFPAY ==
[2020-11-04 17:19] VITALS: BP 136/90; PULSE 101; RESP 22; TEMP 36.9; O2SAT 100; BMI 31.7
--- NOTE | 2020-11-04 17:32 | CTR_ITS ---
PROCEDURE INFORMATION: Exam: CT Lumbar Spine Without Contrast Exam date and time: 11/04/2020 5:40 PM Age: 50 years old Clinical indication: Low back pain; Prior surgery; Surgery date: <1 month; Surgery type: ? Scraping at another facility 10 days ago; Patient HX: C/O lbp w multiple recent falls; Additional info: Back pain. Post surgery 10 days ago and multiple falls TECHNIQUE: Imaging protocol: Computed tomography images of the lumbar spine without contrast. Radiation optimization: All CT scans at this facility use at least one of these dose optimization techniques: automated exposure control; mA and/or kV adjustment per patient size (includes targeted exams where dose is matched to clinical indication); or iterative reconstruction. COMPARISON: CR XR lumbar spine 2-3V* [id number] 10/01/2020 3:06 PM RADIATION DOSE METRICS: Total DLP (mGy-cm): 2758.85 FINDINGS: Vertebrae: There is endplate destruction at L4-L5. There is trace retrolisthesis of L4 on L5. Spinal alignment is otherwise normal. There is bilateral laminotomy at L4. Discs/Spinal canal/Neural foramina: There is moderate to severe spinal canal stenosis at L4-L5 due to generalized disc bulge and surrounding edema. Vasculature: There is mild aortic atherosclerotic disease. Soft tissues: There is marked abnormal anterior paraspinous edema at L4-L5. There is trace gas and edema (expected findings) at the surgical site posteriorly in the lower lumbar spine. There is no organized fluid collection. There are skin kika overlying the lower lumbar spine posteriorly. CT/CT lumbar spine wo con* [id number] IMPRESSION: L4-L5 severe discitis and osteomyelitis with resultant L4-L5 endplate destruction, disc bulge, grade 1 retrolisthesis of L4 on L5, and severe L4-L5 spinal stenosis. Radiation Dose CTDIVOL = (mGy): DLP = 2758.85 (mGy-cm)
[2020-11-04 17:55] LABS: Basophils % 0.4 %; Eosinophils % 0.3 %; Hemoglobin 10.8 g/dL (11.7-16.6); Lymphocytes # 1.6 10^3/uL (0.8-4.8); Mean Corpuscular HGB Conc 34.8 g/dL (30.0-36.0); Mean Corpuscular Hemoglobin 27.8 pg (28.0-34.0); Mean Corpuscular Volume 79.9 fL (80-94); Mean Platelet Volume 9.2 fL (7.4-10.4); Monocytes # 0.4 10^3/uL (0.2-0.9); Monocytes % 6.1 %; Neutrophils % 68.6 %; Nucleated Red Blood Cells % 0 %; Platelet Count 319 10^3/cmm (130-400); Red Blood Count 3.88 10^6/uL (4.1-5.3); Red Cell Distribution Width 13.8 % (12.1-15.1); White Blood Count 6.7 10^3/uL (4.0-10.0)
[2020-11-04 18:27] LABS: Alanine Aminotransferase 11 U/L (0-41); Albumin Level 3.6 g/dL (3.5-5.2); Alkaline Phosphatase 148 IU/L (40-130); Blood Urea Nitrogen 18 mg/dL (6-20); Calcium 8.2 mg/dL (8.5-10.5); Carbon Dioxide 15 mmol/L (22-29); Chloride 102 mmol/L (98-107); Globulin 3.2 g/dL (1.3-4.6); Glomerular Filtration Rate 120.4 mL/min (90-130); Glucose 249 mg/dL (65-115); Osmolality Calculated 288 mOsm/kg (285-295); Sodium 134 mmol/L (136-145); Total Bilirubin 0.2 mg/dL (0.15-1.2); Total Protein 6.8 g/dL (6.6-8.7)
[2020-11-04 18:42] VITALS: RESP 18
[2020-11-04 18:42] LABS: Alcohol Level < 10 mg/dL (0-10)
[2020-11-04] MEDS: sodium chloride 0.9% 1,000 ML 999 ML IV (18:42)
[2020-11-04] MEDS: HYDROmorphone 1 mg/mL INJ 1 mL IVP (18:42)
[2020-11-04 18:43] LABS: Aspartate Amino Transferase 13 U/L (0-40)
[2020-11-04] MEDS: piperacillin-tazobactam 3.375 GM in sodium chloride 0.9% (plus) 50 ML IV (18:48)
[2020-11-04] MEDS: vancomycin 1,500 MG/300 ML PIGGYBACK 200 MG IV (19:01)
--- NOTE | 2020-11-04 19:04 | W.ED.BACK ---
HPI - Back Pain/Injury General: Chief Complaint: Back Pain/Injury Stated Complaint: Lower back pain Time Seen by Provider: 11/04/20 17:24 History of Present Illness: HPI Narrative: The patient is a 50-year-old male known meth abuser/poor historian who comes to the ER complaining of weakness and numbness to bilateral lower extremities. 10 days ago approximately he had a surgery on his lower back and has a scar there. He says he has had low back pain since the surgery. He said 6 to 7 days ago he started to have left-sided sock distribution of pain, numbness, and weakness which has made the leg feel severely healthy and he has fallen several times. 2 days ago he took a particularly hard fall he says. Last night his right foot began to have the same symptoms of increased pain, numbness, weakness. MD elicited complaint: back pain Pertinent past history: prior back pain Timing: constant Severity: severe Quality: sharp Location: lumbar spine Radiation: left leg below the knee and right leg below the knee Exacerbating factors: movement Relieving factors: none Context: IV drug use Associated symptoms: Reports difficulty walking; Deny abdominal pain, fatigue or urinary urgency Review of Systems General: Reports: 10 or more systems reviewed and unremarkable except in HPI and below Const: Denies: fatigue Eyes: Denies: change in vision, blurry vision or eye redness ENMT: Denies: throat pain, swelling of lips/tongue, ear or mastoid pain or nasal congestion Card: Denies: chest pain, palpitations, irregular heart rhythm, edema, dyspnea on exertion or orthopnea Resp: Denies: dyspnea, productive cough or non-productive cough GI: Denies: abdominal pain, diarrhea or GI cramping : Denies: flank pain, urinary frequency or urinary urgency Musc: Reports: back pain and extremity pain; Denies: neck pain, joint pain, joint redness, limited range of motion or muscle weakness Skin/Breast: Denies: rash, pruritus, erythema, skin pain or skin tenderness Neuro: Reports: numbness in extremities, weakness in extremities, difficulty walking and other; Denies: headache(s), sensory changes, dizziness, confusion or Slurred speech present Psych: Denies: anxiety or depression Endo: Denies: polyuria All/Imm: Denies: urticaria, throat swelling or tongue swelling [facility] PFSH: Medical History (Updated 11/04/20 @ 19:12 by Giovany Chang MD) Bowel obstruction CAD (coronary artery disease) Diabetes Hepatitis C History of bacterial endocarditis Hypertension Surgical History History of aortic valve replacement with bioprosthetic valve History of heart valve replacement History of mitral valve replacement with bioprosthetic valve Family History (Updated 07/12/20 @ 13:14 by Khari Miranda MD) Other Diabetes No significant family history Social History Smoking and tobacco status: never smoked Alcohol intake: current Alcohol intake frequency: holidays/special occasions only Housing: Other Details: Homeless Current occupational status: unemployed Physical Exam Narrative: EXAM NARRATIVE: The patient is a chronic meth abuser and cannot hold still he is restless. Chronically. Also severe anxiety chronically. He does have a surgical scar midline low back appears uninfected. He has significant reduced sensation to the left lower extremity in a sock distribution also weakness and pain. Right lower extremity foot same symptoms. Const: COMMON NORMALS: alert GENERAL APPEARANCE: cooperative and disheveled ORIENTATION/CONSCIOUSNESS: Yes awake, Yes oriented to person, Yes oriented to place and Yes oriented to time OTHER: The patient is a poor historian chronically. HENMT: COMMON NORMALS: normocephalic, external ears normal and Normal external nose present HEAD & SCALP: normal to inspection and normocephalic NOSE: Normal external nose present EXTERNAL EAR: Yes external ears normal MOUTH: Normal oral and palatal mucosa present THROAT: posterior oropharynx normal Eye: COMMON NORMALS: Equal, round and reactive pupils present and EOMs intact bilaterally GENERAL EYE: appearance normal, both eyes and all related structures PUPIL: Yes Equal, round and reactive pupils present Neck/C-Spine: COMMON NORMALS: full ROM, no lymphadenopathy, no meningeal signs and no JVD GENERAL: Yes normal visual inspection Lymph: LYMPHATIC: no lymphadenopathy noted Chest: COMMONS NORMALS: normal inspection of the chest and normal palpation of entire chest wall Resp: COMMON NORMALS: normal respiratory effort, No retractions, No use of accessory muscles, clear to auscultation bilaterally and percussion normal EFFORT & INSPECTION: Yes able to speak in complete sentences AUSCULTATION: clear to auscultation bilaterally PERCUSSION: percussion normal Cardio: COMMON NORMALS: no JVD, regular rate, regular rhythm, S1 normal heart sound present, S2 normal heart sound present and Peripheral pulses 2+ throughout RATE: regular rate RHYTHM: regular rhythm HEART SOUNDS: S1 normal heart sound present and S2 normal heart sound present PERIPHERAL PULSES: Peripheral pulses 2+ throughout GI: COMMON NORMALS: Normal to inspection, nondistended, normoactive bowel sounds present, Soft to palpation, non-tender and no masses INSPECTION: Yes normal to inspection PALPATION: Yes Soft to palpation : COMMON NORMALS: Yes no CVA tenderness BLADDER/KIDNEY EXAM: Yes no CVA tenderness Back/Pelvis: COMMON NORMALS: no CVA tenderness, thoracic and lumbar spine normal to inspection, no thoracic nor lumbar tenderness and thoraco-lumbar ROM normal Extremity: COMMON NORMALS: normal to inspection, full ROM, capillary refill normal, no joint enlargement and no pedal edema GENERAL: Yes normal exam except as noted Neuro: SENSORIUM/ORIENTATION: Yes alert, Yes oriented to person, Yes oriented to place and Yes oriented to time MENINGEAL SIGNS: Yes no meningeal signs OTHER: He has significant reduced sensation to the left lower extremity in a sock distribution also weakness and pain. Right lower extremity foot same symptoms. Skin: COMMON NORMALS: no rashes or lesions noted NARRATIVE SKIN EXAM: Midline surgical scar to the low back appears uninfected GENERAL SKIN EXAM: no rashes or lesions noted Course Vital Signs: Vital signs: Vital Signs Temperature 98.5 F 11/04/20 17:19 Pulse Rate 78 11/04/20 19:11 Respiratory Rate 21 H 11/04/20 19:11 Blood Pressure 117/72 11/04/20 19:11 Pulse Oximetry 95 11/04/20 19:11 MDM - Back Pain/Injury MDM Narrative: Medical decision making narrative: The patient came in with significant high suspicion neurologic symptoms possibly related to low back surgery and following. He had unknown procedure at [facility] approximately [address] shows severe discitis and osteomyelitis of the low spine. Discussed with Dr. Mobley on-call neurosurgeon over there and recommended transfer and admit to medical service as he is obviously had some decompression surgery already. Awaiting the hospitalist service for acceptance. ER is not taking transfers at present. Patient was started on IV Vanco and Zosyn. He says he was given Bactrim and vancomycin after discharge but he could not afford the vancomycin and ran out of Bactrim as well. 7:[address] Aleman who accepts as hospitalist. Covid test pending and they are arranging a bed. Lab Data: Labs: Lab Results 11/04/20 11/04/20 11/04/20 Range/Units 17:39 17:39 17:39 WBC 6.7 (4.0-10.0) 10^3/ uL RBC 3.88 L (4.1-5.3) 10^6/u L Hgb 10.8 L (11.7-16.6) g/dL Hct 31.0 L (42.0-52.0) % MCV 79.9 L (80-94) fL MCH 27.8 L (28.0-34.0) pg MCHC 34.8 (30.0-36.0) g/dL RDW 13.8 (12.1-15.1) % Plt Count 319 (130-400) 10^3/c mm MPV 9.2 (7.4-10.4) fL Neut % (Auto) 68.6 % Lymph % (Auto) 24.0 % [place] % (Auto) 6.1 % Eos % (Auto) 0.3 % Baso % (Auto) 0.4 % Neut # (Auto) 4.60 (1.8-7.7) 10^3/u L Lymph # (Auto) 1.6 (0.8-4.8) 10^3/u L [place] # (Auto) 0.4 (0.2-0.9) 10^3/u L Eos # (Auto) 0.0 (0.0-0.8) 10^3/u L Baso # (Auto) 0.0 (0.0-0.1) 10^3/u L Nucleated RBC % (a uto) 0 % Nucleated RBCs # 0.0 /100WBC Sodium 134 L (136-145) mmol/L Potassium 4.0 (3.5-5.1) mmol/L Chloride 102 (98-107) mmol/L Carbon Dioxide 15 L (22-29) mmol/L Anion Gap 21.0 H (5-19) BUN 18 (6-20) mg/dL Creatinine 0.7 (0.7-1.2) mg/dL GFR Calculation 120.4 (90-130) mL/min Glucose 249 H (65-115) mg/dL Calculated Osmolal ity 288 (285-295) mOsm/k g Lactate 3.0 H (0.5-2.2) mmol/L Calcium 8.2 L (8.5-10.5) mg/dL Total Bilirubin 0.2 (0.15-1.2) mg/dL AST 13 (0-40) U/L ALT 11 (0-41) U/L Alkaline Phosphata se 148 H (40-130) IU/L Total Protein 6.8 (6.6-8.7) g/dL Albumin 3.6 (3.5-5.2) g/dL Globulin 3.2 (1.3-4.6) g/dL Ethyl Alcohol < 10 (0-10) mg/dL Discharge Plan Discharge Patient Disposition: Xfer Short-Term Hosp Clinical Impression: Acute osteomyelitis of lumbar spine, Lower extremity neuropathy Condition: Stable Coding Level of Care Code ED Web Operations Manager for Janis Fwd Exam Comprehensive
[2020-11-04 19:11] VITALS: BP 117/72; PULSE 78; RESP 21; O2SAT 95
[2020-11-04 19:50] LABS: Add Urine Microscopic? NO; Charge for UA Resulting for Rev
[2020-11-04 19:54] LABS: SARS Covid-2 Antigen Negative (Negative)
[2020-11-04 19:58] LABS: Bilirubin Urine Neg (Negative); Blood Urine Neg (Negative); Glucose Urine UA 2+ (Normal); Ketones Urine Negative (Negative); Leukocyte Esterase Urine Negative (Negative); Nitrate Urine Negative (Negative); Protein Urine Neg (Negative); Urine Appearance Clear (CLEAR); Urine Color Yellow (Yellow); Urobilinogen Urine Norm (Negative); pH Urine 5 (5-7)
[2020-11-04 20:00] VITALS: BP 119/62; PULSE 74; RESP 18; O2SAT 100
[2020-11-04 20:06] LABS: Amphetamines Screen Urine Positive (Negative); Barbiturates Screen Urine Negative (Negative); Benzodiazepines Screen Urine Negative (Negative); Cocaine Screen Urine Negative (Negative); Opiate Screen Urine Positive (Negative); PCP Screen Urine Negative (Negative); THC Screen Urine Positive (Negative)
[2020-11-04] MEDS: LORazepam 2 mg/mL INJ 1 mL 1 MG IVP (20:38)
== END 2020-11-04 21:30 | disposition short-term general hospital (02) ==
PROVIDERS: Emergency Provider Family Medicine
DX: M46.26 Osteomyelitis of vertebra, lumbar region (principal); E11.40 Type 2 diabetes mellitus with diabetic neuropathy, unspecified; I25.10 Atherosclerotic heart disease of native coronary artery without angina pectoris; Z86.19 Personal history of other infectious and parasitic diseases; I10 Essential (primary) hypertension
CPT/HCPCS: 72131; 80053; 80306; 80307; 81003; 83605; 85025; 87040; 87426; 96365; 96367; 96375; 99285; J1170; J2060; J2543; J3370; J7030

== ENCOUNTER 2021-03-12 05:05 | Inpatient (IN) | payer BC, MEDICAID, SELFPAY ==
[2021-03-12] VITALS (9 sets, daily range): BP systolic 112–150; BP diastolic 64–89; PULSE 68–97; RESP 16–23; TEMP 36.4–36.6; O2SAT 95–100; BMI 34.9
--- NOTE | 2021-03-12 05:09 | CTR_ITS ---
PROCEDURE INFORMATION: Exam: CT Abdomen And Pelvis With Contrast Exam date and time: 03/12/2021 5:09 AM Age: 51 years old Clinical indication: Abdominal pain; Generalized; Additional info: Abd pain TECHNIQUE: Imaging protocol: Computed tomography of the abdomen and pelvis with contrast. Radiation optimization: All CT scans at this facility use at least one of these dose optimization techniques: automated exposure control; mA and/or kV adjustment per patient size (includes targeted exams where dose is matched to clinical indication); or iterative reconstruction. Contrast material: OMNI 300; Contrast volume: 95 ml; Contrast route: INTRAVENOUS (IV); COMPARISON: CT abdomen pelvis w con* [id number] 10/19/2020 11:07 PM RADIATION DOSE METRICS: Total DLP (mGy-cm): 1908.31 FINDINGS: Tubes, catheters and devices: Epicardial wires. Lungs: Interstitial prominence. Liver: No focal hepatic mass. Gallbladder and bile ducts: Unremarkable gallbladder. Pancreas: No pancreatic mass or ductal dilatation. Spleen: Enlarged spleen measuring 15.5 cm in length. Adrenal glands: Unremarkable adrenals. Kidneys and ureters: Normal renal morphology. No hydronephrosis. Stomach and bowel: Small bowel obstruction and transition zone at the level of the distal ileum (series 602: Image 39). Dilated fluid-filled stomach with mild wall thickening. Scattered diverticula and mild colonic wall thickening, without infiltration of pericolonic fat. Appendix: No acute appendicitis. Intraperitoneal space: No significant free fluid. Vasculature: Normal caliber of the abdominal aorta. Vascular calcification. Lymph nodes: Subcentimeter lymph nodes. Urinary bladder: Mild bladder wall thickening. Reproductive: Prostate calcification. Bones/joints: Median sternotomy. Osteopenia , degenerative change, disc bulging. L5-S1 discitis. Soft tissues: Fat containing inguinal hernias. CT/CT abdomen pelvis w con* [id number] IMPRESSION: 1. L5-S1 discitis. 2. Small bowel obstruction and transition zone at the level of the distal ileum (series 602: Image 39). 3. Additional findings as described above. The aforementioned findings initiated a critical results communication pathway. An addendum will be issued at the time of clincian notification. Radiation Dose CTDIVOL = (mGy): DLP = 1908.31 (mGy-cm)
--- NOTE | 2021-03-12 05:11 | ED_ITS ---
Documented by User: Jaylyn Vera MD 03/12/21 05:13 HPI - Abdominal Pain General: Chief Complaint: Abdominal Pain Stated Complaint: ABD PAIN Time Seen by Provider: 03/12/21 05:06 Source: patient and EMS Mode of arrival: EMS Limitations: no limitations History of Present Illness: HPI narrative: 51-year-old male presents with EMS with abdominal pain. He has a history of diabetes along with substance abuse and a valve replacement. He states that he started having severe abdominal pain yesterday. He states his pain is currently 9 out of 10 has had multiple episodes of vomiting along with diarrhea. He states his pain is sharp in his whole abdomen with no radiation of the pain. Denies any worsening or improving factors. Associated Symptoms: Reports diarrhea, nausea and vomiting; Denies chills, dysuria and fever(s) Review of Systems Const: Denies: fever(s), chills, body aches or change in appetite Eyes: Denies: blurry vision or eye discomfort ENMT: Denies: throat pain or dental pain Card: Denies: chest pain Resp: Denies: dyspnea GI: Reports: abdominal pain, nausea, vomiting and diarrhea : Denies: dysuria Musc: Denies: neck pain or back pain Skin/Breast: Denies: rash Neuro: Denies: headache(s) Psych: Denies: depression Jefferson/Lymph: Denies: easy bruising All/Imm: Denies: urticaria PFSH ED PFSH: Medical History (Updated 03/12/21 @ 08:15 by Khari Miranda MD) Bowel obstruction CAD (coronary artery disease) Diabetes Hepatitis C History of bacterial endocarditis Hypertension Surgical History History of aortic valve replacement with bioprosthetic valve History of heart valve replacement History of mitral valve replacement with bioprosthetic valve Family History Other Diabetes No significant family history Social History Smoking and tobacco status: never smoked Alcohol intake: current Alcohol intake frequency: holidays/special occasions only Housing: Other Details: Homeless Current occupational status: unemployed Physical Exam Const: COMMON NORMALS: no acute distress, patient oriented x3 and healthy appearing HENMT: COMMON NORMALS: normocephalic and atraumatic HEAD & SCALP: nor mocephalic and atraumatic Eye: COMMON NORMALS: Equal, round and reactive pupils present and EOMs intact bilaterally PUPIL: Yes Equal, round and reactive pupils present Neck/C-Spine: COMMON NORMALS: full ROM and supple Chest: COMMONS NORMALS: normal inspection of the chest and normal palpation of entire chest wall Resp: COMMON NORMALS: normal respiratory effort, No retractions, No use of accessory muscles and clear to auscultation bilaterally AUSCULTATION: clear to auscultation bilaterally Cardio: COMMON NORMALS: regular rate, regular rhythm and No murmurs present (Cardio) RATE: regular rate RHYTHM: regular rhythm GI: COMMON NORMALS: Normal to inspection, nondistended, normoactive bowel sounds present, Soft to palpation and no masses PALPATION: Yes Soft to palpation OTHER: diffuse tenderness Extremity: COMMON NORMALS: normal to inspection and full ROM Neuro: COMMON NORMALS: patient oriented x3, moves all extremities and no focal motor deficits Psych: COMMON NORMALS: mental status grossly normal, Normal thought process present and cooperative THOUGHT PROCESS: Normal thought process present Skin: COMMON NORMALS: no rashes or lesions noted and no wounds GENERAL SKIN EXAM: no rashes or lesions noted Course Vital Signs: Vital signs: Vital Signs Temperature 97.9 F 03/12/21 05:09 Pulse Rate 85 03/12/21 08:28 Respiratory Rate 16 03/12/21 08:28 Blood Pressure 113/82 03/12/21 08:28 Pulse Oximetry 97 03/12/21 08:28 MDM - Abdominal Pain Lab Data: Labs: Lab Results 03/12/21 03/12/21 03/12/21 05:25 05:25 05:25 WBC 5.6 10^3/uL 10^3/ uL (4.0-10.0) RBC 4.93 10^6/uL 10^6 /uL (4.1-5.3) Hgb 14.3 g/dL g/dL (11.7-16.6) Hct 43.7 % % (42.0-52.0) MCV 88.6 fl fl (80-94) MCH 29.0 pg pg (28.0-34.0) MCHC 32.7 g/dL g/dL (30.0-36.0) RDW 14.1 % % (12.1-15.1) Plt Count 236 10^3/cmm 10^3 /cmm (130-400) MPV 10.2 fL fL (7.4-10.4) Neut % (Auto) 67.1 % % Lymph % (Auto) 24.7 % % Ross % (Auto) 6.7 % % Eos % (Auto) 0.7 % % Baso % (Auto) 0.4 % % Neut # (Auto) 3.78 10^3/uL 10^3 /uL (1.8-7.7) Lymph # (Auto) 1.4 10^3/uL 10^3/ uL (0.8-4.8) Ross # (Auto) 0.4 10^3/uL 10^3/ uL (0.2-0.9) Eos # (Auto) 0.0 10^3/uL 10^3/ uL (0.0-0.8) Baso # (Auto) 0.0 10^3/uL 10^3/ uL (0.0-0.1) Nucleated RBC % (a uto) 0 % % Nucleated RBCs # 0.0 /100WBC /100W BC Sodium 138 mmol/L mmol/L (136-145) Potassium 4.0 mmol/L mmol/L (3.5-5.1) Chloride 103 mmol/L mmol/L (98-107) Carbon Dioxide 21 mmol/L L mmol/ L (22-29) Anion Gap 18.0 (5-19) BUN 20 mg/dL mg/dL (6-20) Creatinine 0.8 mg/dL mg/dL (0.7-1.2) GFR Calculation 102.7 mL/min mL/m in (90-130) Glucose 189 mg/dL H mg/dL (65-115) POC Glucose Calculated Osmolal ity 294 mOsm/kg mOsm/ kg (285-295) Lactate Calcium 9.6 mg/dL mg/dL (8.5-10.5) Total Bilirubin 0.6 mg/dL mg/dL (0.15-1.2) AST 7 U/L U/L (0-40) ALT 9 U/L U/L (0-41) Alkaline Phosphata se 105 IU/L IU/L (40-130) C-Reactive Protein 14.3 mg/L H mg/L (0.0-4.9) Total Protein 7.5 g/dL g/dL (6.6-8.7) Albumin 4.4 g/dL g/dL (3.5-5.2) Globulin 3.1 g/dL g/dL (1.3-4.6) Lipase 15 U/L U/L (13-60) HIV 1&2 Ab & HIV 1 Ag HIV 1&2 Antibody 03/12/21 03/12/21 03/12/21 05:25 05:28 06:22 WBC RBC Hgb Hct MCV MCH MCHC RDW Plt Count MPV Neut % (Auto) Lymph % (Auto) Ross % (Auto) Eos % (Auto) Baso % (Auto) Neut # (Auto) Lymph # (Auto) Ross # (Auto) Eos # (Auto) Baso # (Auto) Nucleated RBC % (a uto) Nucleated RBCs # Sodium Potassium Chloride Carbon Dioxide Anion Gap BUN Creatinine GFR Calculation Glucose POC Glucose 213 mg/dL H mg/dL (70-110) Calculated Osmolal ity Lactate 1.0 mmol/L mmol/L (0.5-2.2) Calcium Total Bilirubin AST ALT Alkaline Phosphata se C-Reactive Protein Total Protein Albumin Globulin Lipase HIV 1&2 Ab & HIV 1 Ag Non-reactive (Non-Reactiv) HIV 1&2 Antibody Non-reactive (Non-Reactiv) Discharge Plan Discharge Patient Disposition: Admitted As Inpatient Clinical Impression: Bowel obstruction, Discitis, H/O heart valve replacement with bioprosthetic valve, Schizophrenia, Diabetes Condition: Stable Sign Out Sign Out Data: Patient Sign Out occurred on 03/12/21 at 05:49. Patient's care was discussed, and care was transferred from to Viet Izaguirre DO. Coding Level of Care Code ED In Store Marketing Representative for Chg Fwd Exam Comprehensive Documented by User: Viet Izaguirre DO 03/12/21 10:09 HPI - Abdominal Pain General: Chief Complaint: Abdominal Pain Stated Complaint: ABD PAIN Time Seen by Provider: 03/12/21 05:06 PFSH ED PFSH: Medical History (Updated 03/12/21 @ 08:15 by Khari Miranda MD) Bowel obstruction CAD (coronary artery disease) Diabetes Hepatitis C History of bacterial endocarditis Hypertension Surgical History History of aortic valve replacement with bioprosthetic valve History of heart valve replacement History of mitral valve replacement with bioprosthetic valve Family History Other Diabetes No significant family history Social History Smoking and tobacco status: never smoked Alcohol intake: current Alcohol intake frequency: holidays/special occasions only Housing: Other Details: Homeless Current occupational status: unemployed Course Vital Signs: Vital signs: Vital Signs Temperature 97.9 F 03/12/21 05:09 Pulse Rate 85 03/12/21 08:28 Respiratory Rate 16 03/12/21 08:28 Blood Pressure 113/82 03/12/21 08:28 Pulse Oximetry 97 03/12/21 08:28 MDM - Abdominal Pain MDM Narrative: Medical decision making narrative: Care assumed a change of shift from Dr. Vera. Labs and imaging EKG reviewed on the chart. Abdominal CT shows what appears to be bowel obstruction with a transition point as well as a L5-S1 discitis. Did talk to Dr. Bhatt and Dr. Feldman. They will consult admit to Dr. Tran cultures done start broad-spectrum antibiotics Vanco and Zosyn. Patient is n.p.o. with an NG at this time. Lab Data: Labs: Lab Results 03/12/21 03/12/21 03/12/21 05:25 05:25 05:25 WBC 5.6 10^3/uL 10^3/ uL (4.0-10.0) RBC 4.93 10^6/uL 10^6 /uL (4.1-5.3) Hgb 14.3 g/dL g/dL (11.7-16.6) Hct 43.7 % % (42.0-52.0) MCV 88.6 fl fl (80-94) MCH 29.0 pg pg (28.0-34.0) MCHC 32.7 g/dL g/dL (30.0-36.0) RDW 14.1 % % (12.1-15.1) Plt Count 236 10^3/cmm 10^3 /cmm (130-400) MPV 10.2 fL fL (7.4-10.4) Neut % (Auto) 67.1 % % Lymph % (Auto) 24.7 % % Ross % (Auto) 6.7 % % Eos % (Auto) 0.7 % % Baso % (Auto) 0.4 % % Neut # (Auto) 3.78 10^3/uL 10^3 /uL (1.8-7.7) Lymph # (Auto) 1.4 10^3/uL 10^3/ uL (0.8-4.8) Ross # (Auto) 0.4 10^3/uL 10^3/ uL (0.2-0.9) Eos # (Auto) 0.0 10^3/uL 10^3/ uL (0.0-0.8) Baso # (Auto) 0.0 10^3/uL 10^3/ uL (0.0-0.1) Nucleated RBC % (a uto) 0 % % Nucleated RBCs # 0.0 /100WBC /100W BC Sodium 138 mmol/L mmol/L (136-145) Potassium 4.0 mmol/L mmol/L (3.5-5.1) Chloride 103 mmol/L mmol/L (98-107) Carbon Dioxide 21 mmol/L L mmol/ L (22-29) Anion Gap 18.0 (5-19) BUN 20 mg/dL mg/dL (6-20) Creatinine 0.8 mg/dL mg/dL (0.7-1.2) GFR Calculation 102.7 mL/min mL/m in (90-130) Glucose 189 mg/dL H mg/dL (65-115) POC Glucose Calculated Osmolal ity 294 mOsm/kg mOsm/ kg (285-295) Lactate Calcium 9.6 mg/dL mg/dL (8.5-10.5) Total Bilirubin 0.6 mg/dL mg/dL (0.15-1.2) AST 7 U/L U/L (0-40) ALT 9 U/L U/L (0-41) Alkaline Phosphata se 105 IU/L IU/L (40-130) C-Reactive Protein 14.3 mg/L H mg/L (0.0-4.9) Total Protein 7.5 g/dL g/dL (6.6-8.7) Albumin 4.4 g/dL g/dL (3.5-5.2) Globulin 3.1 g/dL g/dL (1.3-4.6) Lipase 15 U/L U/L (13-60) HIV 1&2 Ab & HIV 1 Ag HIV 1&2 Antibody 03/12/21 03/12/21 03/12/21 05:25 05:28 06:22 WBC RBC Hgb Hct MCV MCH MCHC RDW Plt Count MPV Neut % (Auto) Lymph % (Auto) Ross % (Auto) Eos % (Auto) Baso % (Auto) Neut # (Auto) Lymph # (Auto) Ross # (Auto) Eos # (Auto) Baso # (Auto) Nucleated RBC % (a uto) Nucleated RBCs # Sodium Potassium Chloride Carbon Dioxide Anion Gap BUN Creatinine GFR Calculation Glucose POC Glucose 213 mg/dL H mg/dL (70-110) Calculated Osmolal ity Lactate 1.0 mmol/L mmol/L (0.5-2.2) Calcium Total Bilirubin AST ALT Alkaline Phosphata se C-Reactive Protein Total Protein Albumin Globulin Lipase HIV 1&2 Ab & HIV 1 Ag Non-reactive (Non-Reactiv) HIV 1&2 Antibody Non-reactive (Non-Reactiv) Discharge Plan Discharge Patient Disposition: Admitted As Inpatient Clinical Impression: Bowel obstruction, Discitis, H/O heart valve replacement with bioprosthetic valve, Schizophrenia, Diabetes Condition: Stable Sign Out Sign Out Data: Patient Sign Out occurred on 03/12/21 at 05:49. Patient's care was discussed, and care was transferred from to Viet Izaguirre DO. Coding Level of Care Code ED In Store Marketing Representative for Janis Fwadam Exam Comprehensive
[2021-03-12] MEDS: HYDROmorphone 1 mg/mL INJ 1 mL IVP (05:29)
[2021-03-12] MEDS: ondansetron 2 mg/ML SDV 2 mL 4 MG IVP (05:29)
[2021-03-12] MEDS: sodium chloride 0.9% 1,000 ML 999 ML IV (05:29)
[2021-03-12 05:32] LABS: Glucose Point of Care 213 mg/dL (70-110)
[2021-03-12] MEDS: iohexol 300 mg/mL 100 mL Btl IV (05:50)
[2021-03-12 06:18] LABS: Basophils % 0.4 %; Eosinophils % 0.7 %; Hematocrit 43.7 % (42.0-52.0); Hemoglobin 14.3 g/dL (11.7-16.6); Lymphocytes # 1.4 10^3/uL (0.8-4.8); Lymphocytes % 24.7 %; Mean Corpuscular HGB Conc 32.7 g/dL (30.0-36.0); Mean Corpuscular Volume 88.6 fl (80-94); Mean Platelet Volume 10.2 fL (7.4-10.4); Monocytes # 0.4 10^3/uL (0.2-0.9); Monocytes % 6.7 %; Neutrophils # 3.78 10^3/uL (1.8-7.7); Neutrophils % 67.1 %; Nucleated Red Blood Cells % 0 %; Platelet Count 236 10^3/cmm (130-400); Red Blood Count 4.93 10^6/uL (4.1-5.3); Red Cell Distribution Width 14.1 % (12.1-15.1); White Blood Count 5.6 10^3/uL (4.0-10.0)
[2021-03-12] MEDS: LORazepam 2 mg/mL INJ 1 mL IVP ×2 (06:38→08:08)
[2021-03-12 06:39] LABS: Alanine Aminotransferase 9 U/L (0-41); Albumin Level 4.4 g/dL (3.5-5.2); Alkaline Phosphatase 105 IU/L (40-130); Aspartate Amino Transferase 7 U/L (0-40); Blood Urea Nitrogen 20 mg/dL (6-20); Calcium 9.6 mg/dL (8.5-10.5); Carbon Dioxide 21 mmol/L (22-29); Chloride 103 mmol/L (98-107); Creatinine Clr Calc Pharmacy 130.7657; Globulin 3.1 g/dL (1.3-4.6); Glomerular Filtration Rate 102.7 mL/min (90-130); Glucose 189 mg/dL (65-115); Lipase 15 U/L (13-60); Osmolality Calculated 294 mOsm/kg (285-295); Sodium 138 mmol/L (136-145); Total Bilirubin 0.6 mg/dL (0.15-1.2); Total Protein 7.5 g/dL (6.6-8.7)
--- NOTE | 2021-03-12 08:00 | PC.NURSE ---
pt pulling at NG tube. NG tube repostioned and resecured.
--- NOTE | 2021-03-12 08:06 | PM.HP ---
Providers/Chief Complaint Chief Complaint: ABD PAIN History of Present Illness Shree Hickman is a 51 year old male who presented to the emergency department I believe with vomiting and diarrhea. Patient currently has received some Ativan and Dilaudid and goes from sleeping to waking with some agitation. He has been pulling at his NG, and IVs. Further history I cannot get from the patient currently. On review of records it is apparent he has had discitis and perhaps a decompression in the past. This occurred at [facility] in [place] after a transfer from our emergency department October 19, and again on November 04. Records will be requested so I can determine the exact hospital course. This is pertinent secondary to L5-S1 discitis seen on CT abdomen and pelvis. From my understanding when patient arrived he really was not complaining of any back pain, paresthesias or other lower extremity symptoms. In his current state, an MRI could not be entertained. The emergency department physician has alerted me that Dr. Ruiz has been notified of the case and will consult. I cannot confirm at this time if he got his blood culture through the emergency department prior to antibiotic administration. Review of Systems General: Reports: ROS unobtainable due to mental status (Currently patient has received sedating medication making review of systems) Medications/Allergies Home Medications Medication Instructions Recorded Confirmed Last Taken Type Unable to Assess 03/12/21 03/12/21 Unknown History Allergies Allergy/AdvReac Type Severity Reaction Status Date / Time No Known Allergies Allergy Verified 10/19/20 21:38 PFSH Acute PFSH: Medical History (Updated 03/12/21 @ 08:15 by Khari Miranda MD) Bowel obstruction CAD (coronary artery disease) Diabetes Hepatitis C History of bacterial endocarditis Hypertension Surgical History History of aortic valve replacement with bioprosthetic valve History of heart valve replacement History of mitral valve replacement with bioprosthetic valve Family History Other Diabetes No significant family history Social History Smoking and tobacco status: never smoked Alcohol intake: current Alcohol intake frequency: holidays/special occasions only Housing: Other Details: Homeless Current occupational status: unemployed Vitals/I&O/Wt Last Vital Signs Temp 97.9 F 03/12/21 05:09 Pulse 86 03/12/21 06:42 Resp 18 03/12/21 06:42 BP 136/89 03/12/21 06:42 Pulse Ox 98 03/12/21 06:42 Weight last 48 hrs Weight 104.326 kg Physical Exam Narrative: EXAM NARRATIVE: General exam is a white male, sleeping and then awakening with any stimulation. HEENT: Pupils equally round. Oropharynx not examined secondary to patient cooperation Neck is supple, no lymphadenopathy or thyromegaly Cardiovascular regular rate and rhythm without murmur, sounds distant Lungs clear no wheezing or crackles Abdomen is soft, positive bowel sounds. No obvious organomegaly exam is deferred Extremities no cyanosis clubbing or edema, cap refill brisk. Moves limbs spontaneously. Neuro: No obvious focal deficits Skin no rash Data : 03/12/21 05:25 03/12/21 05:25 Micro: Microbiology 03/12/21 07:53 Blood Culture - Preliminary Blood SPECIMEN COLLECTED Other data: LFTs and lipase are normal. CT abdomen and pelvis demonstrated L5-S1 discitis, small bowel obstruction with transition zone in the distal ileum Lactate is checked and normal. A&P Assessment and plan (1) Bowel obstruction: Although CT is significant for dilated small bowel it is atypical for bowel obstruction and that he reported loose stool to the emergency department physician, and in fact had a loose stool in the emergency department while I was present. Secondary to long courses of antibiotics for L4-L5 discitis in August and September and unknown treatment since then a C. difficile toxin will be obtained Surgery consultation NG tube low intermittent suction Protonix IV Pain control Will require a sitter secondary to the patient's propensity to pull out tubes and IVs and altered sensorium secondary to pain and anxiety medication. Status: Acute (2) Discitis: I believe this was secondary to group C streptococcus in the past but I am not definite Request records from [facility] Initially started on vancomycin and Zosyn Check CRP and sedimentation rate Orthopedic spine surgery consultation. Status: Acute (3) Diabetes: Consistent carb diet Sliding scale insulin Status: Acute Qualifiers: Diabetes mellitus type: type 2 Diabetes mellitus complication status: with hyperglycemia Additional A&P Information History of aortic and mitral valve replacement with bioprosthetic valve Schizophrenia. Prn Zyprexa Drug use Attestations Medical Necessity Statement*: Will need greater than two midnight stay secondary to small bowel obstruction and concern of discitis. Time Spent in Patient Care: Greater than 35 minutes Coding Level of Care Code Acute Embedded Software Developer for Chg Fwd Diagnoses Bowel obstruction K56.609 Discitis M46.40 Diabetes E11.9 Diabetes mellitus type: type 2 Diabetes mellitus complication status: with hyperglycemia
[2021-03-12 08:14] LABS: C Reactive Protein 14.3 mg/L (0.0-4.9)
--- NOTE | 2021-03-12 08:25 | PC.PHAR ---
pt unable to verify medications-ozh last filled in september 2020 for celebrex,cyclobenzaprine,and naprosyn-ext med history shows doxycycline 100mg 30d/s,levofloxacin 750mg 30d/s and oxycodone ir 5mg 1d/s filled on 11/08/20-ext med history shows a lantus solostar 20 units qpm filled 03/27/2020 75d/s
[2021-03-12] MEDS: piperacillin-tazobactam 3.375 GM in sodium chloride 0.9% (plus) 50 ML IV ×3 (08:26→22:40)
[2021-03-12] MEDS: vancomycin 1,000 MG in sodium chloride 0.9% 250 ML 250 MG IV (09:35)
[2021-03-12 09:42] LABS: HIV 1 & 2 Antibody Non-Reactive (Non-Reactiv); HIV 1 & 2 Antigen Non-Reactive (Non-Reactiv)
[2021-03-12] MEDS: pantoprazole 40 mg SDV IVP (12:53)
[2021-03-12] MEDS: enoxaparin 40 mg/0.4 mL Syringe SUBCUT (13:12)
[2021-03-12] MEDS: sodium chloride 0.9% 1,000 ML 100 ML IV (13:12)
--- NOTE | 2021-03-12 14:04 | PM.CONSULT ---
Providers/Reason For Consult Consulting Physician/Specialty*: Ortho Spine Reason for Consult*: Back Pain Attending Physician: Khari Miranda MD History of Present Illness History of Present Illness Shree Hickman is a 51 year old male who was seen in room 279-2 with sitter and nurse present. He reports back and belly pain. Back pain has been constant and sharp in nature. He does report IV drug use hx. Patient was confused and somnolent. Most of the information was gathered from the chart. Review of Systems General: Reports: ROS unobtainable due to mental status (Currently patient has received sedating medication making review of systems) Const: Denies: fever(s), chills, body aches or change in appetite Eyes: Denies: blurry vision, photophobia or eye discomfort ENMT: Denies: throat pain, enlarged tonsils or dental pain Card: Denies: chest pain Resp: Denies: dyspnea GI: Reports: abdominal pain, nausea, vomiting and diarrhea : Denies: dysuria Musc: Reports: joint warmth; Denies: neck pain or back pain Skin/Breast: Denies: rash Neuro: Denies: headache(s) Psych: Denies: depression Jefferson/Lymph: Denies: easy bruising All/Imm: Denies: urticaria Meds/Allergies Home Medications and Allergies Home Medications Medication Instructions Recorded Confirmed Last Taken Type Unable to Assess 03/12/21 03/12/21 Unknown History Allergies Allergy/AdvReac Type Severity Reaction Status Date / Time No Known Allergies Allergy Verified 10/19/20 21:38 Current Medications Current Medications Generic Name Dose Route Start Last Admin Trade Name Freq PRN Reason Stop Dose Admin Enoxaparin Sodium 40 mg 03/12/21 12:23 03/12/21 13:12 Enoxaparin 40 Mg/0.4 Ml Syringe SUBCUT 40 mg Q24H ROMA Administration Sodium Chloride 1,000 mls @ 100 mls/hr 03/12/21 12:23 03/12/21 13:12 Sodium Chloride 0.9% IV 100 mls/hr .Q10H ROMA Administration Pantoprazole Sodium 40 mg 03/12/21 12:23 03/12/21 12:53 Pantoprazole 40 Mg Sdv IVP 40 mg Q24H ROMA Administration PFSH Acute PFSH: Medical History (Updated 03/12/21 @ 14:12 by DINESH Clarke) Bowel obstruction CAD (coronary artery disease) Diabetes Hepatitis C History of bacterial endocarditis Hypertension Surgical History History of aortic valve replacement with bioprosthetic valve History of heart valve replacement History of mitral valve replacement with bioprosthetic valve Family History Other Diabetes No significant family history Social History Smoking and tobacco status: never smoked Alcohol intake: current Alcohol intake frequency: holidays/special occasions only Housing: Other Details: Homeless Current occupational status: unemployed Vitals/I&O/Wt Last Vital Signs Temp 97.6 F 03/12/21 12:23 Pulse 81 03/12/21 12:23 Resp 16 03/12/21 12:23 BP 119/87 03/12/21 12:23 Pulse Ox 100 03/12/21 12:23 03/11/21 03/12/21 03/12/21 22:59 06:59 14:59 Intake Total 1300 / 1300 Balance 1300 / 1300 Weight last 48 hrs Weight 230 lb Physical Exam Narrative: EXAM NARRATIVE: pain with palpation over the Lumbar region, Fires in all motor groups, wiggles all digits and appears to fire in all motor groups, calves supple, HENMT: COMMON NORMALS: normocephalic HEAD & SCALP: normocephalic Resp: COMMON NORMALS: normal respiratory effort Cardio: COMMON NORMALS: regular rate and regular rhythm RATE: regular rate RHYTHM: regular rhythm Data Micro: Micro: Microbiology 03/12/21 08:03 Blood Culture - Pr eliminary Blood SPECIMEN [facility] 03/12/21 07:53 Blood Culture - Pr eliminary Blood SPECIMEN [facility] A&P Assessment and plan (1) DDD (degenerative disc disease), lumbosacral: would recommend Lumbar MRI w/wwout Contrast. Status: Acute Coding Level of Care Code Acute Barrel Rib Matting Machine Operator for Chg Fwd Diagnoses DDD (degenerative disc disease), lumbosacral M51.37
[2021-03-12] MEDS: LORazepam 2 mg/mL INJ 1 mL 1 MG IVP (17:48)
[2021-03-12 18:02] LABS: Add Urine Microscopic? NO; Charge for UA Resulting for Rev
[2021-03-12 18:12] LABS: Bilirubin Urine Neg (Negative); Blood Urine Neg (Negative); Glucose Urine UA Trace (Normal); Ketones Urine Negative (Negative); Leukocyte Esterase Urine Negative (Negative); Nitrate Urine Negative (Negative); Protein Urine Neg (Negative); Specific Gravity, Urine 1.015 (1.005-1.030); Urine Appearance Clear (CLEAR); Urine Color Yellow (Yellow); Urobilinogen Urine Norm (Negative); pH Urine 5 (5-7)
[2021-03-12] MEDS: vancomycin 1,500 MG/300 ML PIGGYBACK 200 MG IV (18:39)
--- NOTE | 2021-03-12 23:45 | PC.NURSE ---
This nurse removed nasogastric tube from patients left nare, tolerated well.
[2021-03-13 04:06] VITALS: BP 121/68; PULSE 71; RESP 18; TEMP 36.5; O2SAT 95
[2021-03-13] MEDS: vancomycin 1,500 MG/300 ML PIGGYBACK 200 MG IV ×3 (04:10→19:51)
[2021-03-13] MEDS: sodium chloride 0.9% 1,000 ML 100 ML IV (04:12)
[2021-03-13] MEDS: LORazepam 2 mg/mL INJ 1 mL 1 MG IVP ×2 (05:14→19:08)
[2021-03-13 05:59] LABS: Basophils % 0.3 %; Eosinophils # 0.1 10^3/uL (0.0-0.8); Eosinophils % 1.5 %; Hematocrit 39.4 % (42.0-52.0); Hemoglobin 12.9 g/dL (11.7-16.6); Lymphocytes # 1.4 10^3/uL (0.8-4.8); Lymphocytes % 34.8 %; Mean Corpuscular HGB Conc 32.7 g/dL (30.0-36.0); Mean Corpuscular Hemoglobin 29.3 pg (28.0-34.0); Mean Corpuscular Volume 89.5 fl (80-94); Mean Platelet Volume 10.3 fL (7.4-10.4); Monocytes # 0.2 10^3/uL (0.2-0.9); Monocytes % 4.9 %; Neutrophils # 2.26 10^3/uL (1.8-7.7); Neutrophils % 58.2 %; Nucleated Red Blood Cells % 0 %; Platelet Count 190 10^3/cmm (130-400); Red Cell Distribution Width 14.1 % (12.1-15.1); White Blood Count 3.9 10^3/uL (4.0-10.0)
[2021-03-13 06:19] LABS: Alanine Aminotransferase 7 U/L (0-41); Albumin Level 3.7 g/dL (3.5-5.2); Alkaline Phosphatase 81 IU/L (40-130); Aspartate Amino Transferase 6 U/L (0-40); Blood Urea Nitrogen 9 mg/dL (6-20); Calcium 8.4 mg/dL (8.5-10.5); Carbon Dioxide 21 mmol/L (22-29); Chloride 106 mmol/L (98-107); Creatinine Clr Calc Pharmacy 149.4466; Globulin 2.7 g/dL (1.3-4.6); Glomerular Filtration Rate 119.9 mL/min (90-130); Glucose 147 mg/dL (65-115); Magnesium 1.7 mg/dL (1.7-2.3); Osmolality Calculated 287 mOsm/kg (285-295); Sodium 138 mmol/L (136-145); Total Bilirubin 0.3 mg/dL (0.15-1.2); Total Protein 6.4 g/dL (6.6-8.7)
[2021-03-13 06:22] LABS: Anion Gap 15.1 (5-19); Potassium 4.1 mmol/L (3.5-5.1)
[2021-03-13] MEDS: piperacillin-tazobactam 3.375 GM in sodium chloride 0.9% (plus) 50 ML IV ×3 (06:34→21:51)
[2021-03-13 07:48] VITALS: BP 134/92; PULSE 74; RESP 17; TEMP 36.7; O2SAT 94
--- NOTE | 2021-03-13 08:38 | XR_ITS ---
WS: [id number] XR abdomen 1V* [id number] REASON FOR EXAM: abdominal pain FINDINGS: No free air or retroperitoneal air. Moderate dilatation with thickened fold pattern of several small bowel loops in the midabdomen abdome n. Gas in a nondistended colon. Gas in the rectum. No mass identified. No significant calcification. XR/XR abdomen 1V* [id number] IMPRESSION: Small bowel obstruction.
--- NOTE | 2021-03-13 08:54 | PM.PN ---
Subjective Subjective: Interval history: Shree reports his belly hurts a little bit. He wants something for anxiousness. He denies being suicidal but reports he is just waiting to some days. Denies having gas this morning. Last bowel movement was in the emergency department at admission. Did well yesterday and NG was able to be removed after clamping. Reports he needs something for the neuropathy in his left leg that has been going on since his surgery for osteomyelitis(decompression) in October. Medications: Reviewed: Yes Vitals/I&O/Wt Last Vital Signs Temp 98.1 F 03/13/21 07:48 Pulse 74 03/13/21 07:48 Resp 17 03/13/21 07:48 BP 134/92 03/13/21 07:48 Pulse Ox 94 03/13/21 07:48 03/12/21 03/13/21 03/13/21 22:59 06:59 14:59 Intake Total 3103.333 / 4403.333 2060.000 / 6463.333 Output Total 1525 / 1525 1950 / 3475 Balance 1578.333 / 2878.333 110.000 / 2988.333 Weight last 48 hrs Weight 104.326 kg Physical Exam Narrative: EXAM NARRATIVE: General exam no distress Neck is supple, no lymphadenopathy or thyromegaly Cardiovascular regular rate and rhythm without murmur, sounds distant Lungs clear no wheezing or crackles Abdomen is excellent bowel sounds. Mild subjective global tenderness. Question slight distention. Extremities no cyanosis clubbing or edema, cap refill brisk. Moves limbs spontaneously. Data : 03/13/21 05:05 03/13/21 05:05 Micro: Microbiology 03/12/21 08:03 Blood Culture - Preliminary Blood NEGATIVE TO DATE 03/12/21 07:53 Blood Culture - Preliminary Blood NEGATIVE TO DATE A&P Assessment and plan (1) Bowel obstruction: Although CT is significant for dilated small bowel it is atypical for bowel obstruction and that he reported loose stool to the emergency department physician, and in fact had a loose stool in the emergency department while I was present. Secondary to long courses of antibiotics for L4-L5 discitis in August and September and unknown treatment since then a C. difficile toxin will be obtained. Still awaiting this. Surgical consultation canceled secondary to patient's bowel movement, no further vomiting. Repeat abdominal film today. Continue Protonix IV Transition to oral pain medication, wean as tolerated Presentation is more consistent perhaps ileus than small bowel obstruction. Status: Acute (2) Discitis: I believe this was secondary to group C streptococcus in the past but I am not definite Request records from [facility]. These records were reviewed. Had decompressive surgery, IV antibiotics, and then a prolonged course of p.o. antibiotics which patient reports he finished. Currently on vancomycin and Zosyn but utility in question. He is afebrile. CRP is elevated but not markedly so. Sedimentation rate is pending. Review of CT scan with radiologist here in comparison with previous films demonstrated sclerosis and improvement from prior films. Orthopedic spine surgery was consulted recommended MRI which is pending Secondary to patient's neuropathy, Neurontin initiated. Patient reports he took this in the past but ran out of the medication. Status: Acute (3) Diabetes: Clear liquid diet currently. Sliding scale insulin Status: Acute Qualifiers: Diabetes mellitus type: type 2 Diabetes mellitus complication status: with hyperglycemia Additional A&P Information History of aortic and mitral valve replacement with bioprosthetic valve Schizophrenia. Prn Zyprexa. Now having some passive thoughts of dying. Will involve psychiatry. Drug use Lovenox for DVT prophylaxis Full code Will need discharge services involved secondary to need for physician, follow-up. Would also be good to have infectious disease follow-up. Attestations Medical Necessity Statement*: Requires continued inpatient stay secondary to persistent abdominal pain with concern of ileus. Coding Level of Care Code Acute Pediatric Urologist for [facility] Diagnoses Bowel obstruction K56.609 Discitis M46.40 Diabetes E11.9 Diabetes mellitus type: type 2 Diabetes mellitus complication status: with hyperglycemia
[2021-03-13] MEDS: HYDROcodone-acetaminophen 5-325 mg Tablet 1 TAB PO (08:58)
[2021-03-13] MEDS: gabapentin 300 mg Capsule PO ×3 (08:58→20:59)
--- NOTE | 2021-03-13 09:42 | PC.CHAP ---
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 visit [] Patient/Family/Request visit [] Outpatient visit [] Follow-up visit [] Physician referral [] Code/Alert [x] Routine visit [] Staff referral [] Actively dying [x] Patient sleeping [] Family support [] [] Out of room [] Palliative care [] [] Receiving care in room [] Pre-surgical visit [] Trauma [] Long length of stay [] ICU visit [] Other: Relational/Emotional Strength [] Patient feels connected with others/family/visitors/staff [] Distress [] Loneliness/isolation [] Abandonment Spirituality of Patient [] Person of Kimmie [] Attends Pentecostalism of their Kimmie [] Believes in Prayer [] Reads Bible or Hoahaoism materials [] There are Spiritual issues to be addressed Circus Performer Interventions [] Prayer [] Active listening [] Non-anxious presence [] Spiritual/emotional support [] Crisis/trauma care [] Spiritual counseling [] Bereavement support [] Provided bereavement packet [] Provided Bible/devotional materials [] Provided toy/stuffed animal, coloring book to patient or family member [] Provided Communion [] Anointing/Bosque [] Salvation [] Completed spiritual assessment [] Other: Impact on Illness or Injury [] Angry [] Fearful [] Anxious [] Often cries [] Exhaustion [] Unable to work [] Unable to attend confucianist [] Unable to walk/stand [] Unable to read [] Unable to drive [] Unable to eat/drink [] Unable to sleep [] Unable to be with family [] Patient intubated [] Other: Summary Time spent with patient
[2021-03-13 10:46] LABS: Glucose Point of Care 209 mg/dL (70-110)
--- NOTE | 2021-03-13 10:52 | PM.PN ---
Subjective Subjective: Interval history: Patient in bed did not wake up for exam this morning. Vitals/I&O/Wt Last Vital Signs Temp 98.1 F 03/13/21 07:48 Pulse 74 03/13/21 07:48 Resp 17 03/13/21 07:48 BP 134/92 03/13/21 07:48 Pulse Ox 94 03/13/21 07:48 03/12/21 03/13/21 03/13/21 22:59 06:59 14:59 Intake Total 3103.333 / 4403.333 2060.000 / 6463.333 240 / 240 Output Total 1525 / 1525 1950 / 3475 Balance 1578.333 / 2878.333 110.000 / 2988.333 240 / 240 Weight last 48 hrs Weight 230 lb Physical Exam Narrative: EXAM NARRATIVE: Lying in bed in the lateral decubitus position not waking up to verbal commands. has good respirations Data : 03/13/21 05:05 03/13/21 05:05 Micro: Microbiology 03/12/21 08:03 Blood Culture - Preliminary Blood NEGATIVE TO DATE 03/12/21 07:53 Blood Culture - Preliminary Blood NEGATIVE TO DATE A&P Assessment and plan (1) Discitis: Awaiting MRI to confirm or rule out discitis. 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
[2021-03-13 11:41] VITALS: BP 132/86; PULSE 68; RESP 17; TEMP 36.4; O2SAT 97
[2021-03-13] MEDS: pantoprazole 40 mg SDV IVP (12:06)
[2021-03-13] MEDS: enoxaparin 40 mg/0.4 mL Syringe SUBCUT (12:06)
[2021-03-13 12:40] LABS: Erythrocyte Sedimentation Rate 9 mm/hr (0-10)
[2021-03-13 15:38] VITALS: BP 130/81; PULSE 76; RESP 17; TEMP 36.7; O2SAT 96
[2021-03-13 16:24] LABS: Glucose Point of Care 165 mg/dL (70-110)
[2021-03-13] MEDS: sodium chloride 0.9% 1,000 ML 50 ML IV (17:12)
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
--- NOTE | 2021-03-13 18:16 | PC.NURSE ---
Contacted patient's father Alexey and was able to track down where he lives. Alexey stated that the patient lives in the basement of his home. His contact information is correct in the chart, but patient's father states that he is not always home. Also was able to contact Hugo about his father and he states he can be his ride at discharge but phone number in chart is incorrect. New contact information for Hugo is [phone].
[2021-03-13 19:39] VITALS: BP 144/96; PULSE 82; RESP 18; TEMP 36.4; O2SAT 98
[2021-03-13 20:31] LABS: Glucose Point of Care 186 mg/dL (70-110)
[2021-03-13] MEDS: diphenhydrAMINE 50 mg Capsule PO (20:59)
[2021-03-13] MEDS: haloperidol inj 5 mg/mL INJ 1 mL IM (21:48)
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
[2021-03-14 03:08] LABS: Basophils % 0.2 %; Eosinophils % 0.7 %; Hematocrit 37.5 % (42.0-52.0); Hemoglobin 12.5 g/dL (11.7-16.6); Lymphocytes # 1.8 10^3/uL (0.8-4.8); Lymphocytes % 39.9 %; Mean Corpuscular HGB Conc 33.3 g/dL (30.0-36.0); Mean Corpuscular Hemoglobin 29.4 pg (28.0-34.0); Mean Corpuscular Volume 88.2 fl (80-94); Mean Platelet Volume 9.7 fL (7.4-10.4); Monocytes # 0.3 10^3/uL (0.2-0.9); Monocytes % 5.7 %; Neutrophils # 2.33 10^3/uL (1.8-7.7); Nucleated Red Blood Cells % 0 %; Platelet Count 192 10^3/cmm (130-400); Red Blood Count 4.25 10^6/uL (4.1-5.3); Red Cell Distribution Width 14.2 % (12.1-15.1); White Blood Count 4.4 10^3/uL (4.0-10.0)
[2021-03-14 03:25] LABS: Vancomycin Trough 22.1 ug/mL (10-15)
[2021-03-14 03:26] LABS: Blood Urea Nitrogen 11 mg/dL (6-20); Calcium 8.8 mg/dL (8.5-10.5); Carbon Dioxide 21 mmol/L (22-29); Chloride 105 mmol/L (98-107); Creatinine Clr Calc Pharmacy 130.7657; Glomerular Filtration Rate 102.7 mL/min (90-130); Glucose 175 mg/dL (65-115); Osmolality Calculated 288 mOsm/kg (285-295); Sodium 137 mmol/L (136-145)
--- NOTE | 2021-03-14 03:39 | PC.PHAR ---
Vancomycin trough level is 22.1. Hold for 12 hours then reduce to 1500mg IVPB every 12 hours with trough level before 4th dose.
[2021-03-14 04:00] VITALS: BP 147/89; PULSE 64; RESP 18; TEMP 36.6; O2SAT 91
[2021-03-14] MEDS: piperacillin-tazobactam 3.375 GM in sodium chloride 0.9% (plus) 50 ML IV (06:15)
[2021-03-14] MEDS: sodium chloride 0.9% 1,000 ML 50 ML IV (06:15)
[2021-03-14 07:00] LABS: Glucose Point of Care 142 mg/dL (70-110)
[2021-03-14] MEDS: LORazepam 2 mg/mL INJ 1 mL 1 MG IVP ×2 (07:32→11:30)
[2021-03-14] MEDS: diphenhydrAMINE 50 mg Capsule PO (07:32)
[2021-03-14 11:55] VITALS: BP 155/109; PULSE 72; RESP 18; TEMP 36.8; O2SAT 95
[2021-03-14 11:59] LABS: Glucose Point of Care 168 mg/dL (70-110)
[2021-03-14] MEDS: escitalopram 10 mg Tablet PO (13:37)
[2021-03-14] MEDS: enoxaparin 40 mg/0.4 mL Syringe SUBCUT (13:37)
--- NOTE | 2021-03-14 13:54 | PM.DCS ---
Discharge Providers Date of Admission: 03/12/21 12:23 Date of Discharge: March 14, 2021 Attending Provider at Admission: Khari Miranda MD Attending Provider at Discharge: Khari Miranda MD Diagnoses at Discharge Discharge Diagnosis (1) DDD (degenerative disc disease), lumbosacral: Status: Acute (2) Discitis: Status: Acute (3) Bowel obstruction: Status: Acute (4) Depressive disorder: Status: Acute (5) Septic arthritis due to Streptococcus species: Status: Acute (6) Sepsis: Status: Acute Qualifiers: Sepsis acute organ dysfunction status: without acute organ dysfunction Sepsis type: Streptococcus, other Qualified Code(s): A40.8 - Other streptococcal sepsis (7) DKA (diabetic ketoacidoses): Status: Acute (8) Cellulitis and abscess of left leg: Status: Acute (9) Substance abuse: Status: Acute (10) Methamphetamine abuse: Status: Acute Reason for Visit Reason for Visit: ABD PAIN Hospital Course Hospital Course Shree is a 51-year-old white male with history of substance abuse and aortic and mitral valve replacement who originally presented to the emergency department with complaints of abdominal discomfort. He has not had any fever. He reported he had some neuropathy from his back surgery in October but this was unchanged. In the emergency department a CT scan demonstrated concern of bowel obstruction. This also relate raised the question about discitis in his lumbar spine. 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 Ultimately on discharge in October he was placed on a course of 6 weeks of Levaquin and doxycycline. Cultures were negative at time of discharge. Transthoracic echocardiogram demonstrated no vegetation. This hospital stay secondary to concern of discitis on admission vancomycin and Zosyn were initiated. Blood cultures were drawn. An NG was placed for concern of bowel obstruction. When I visited with him he had had a bowel movement, had good bowel sounds and therefore NG was clamped and ultimately removed. He subsequently was initiated on a diet which she tolerated well during his entire hospital course. For concern of discitis I reviewed his films with radiology who believed a significant amount of sclerosis was present and imaging was greatly improved from prior imaging. Sedimentation rate was normal. CRP slightly elevated. Orthopedic spine surgery was consulted and they recommended MRI of spine but this was not able to be completed secondary to patient ability to stay still and claustrophobia. This was despite medicating the patient for the procedure. Overall, concern of residual discitis is low considering no new symptoms, previous diagnosis in October, normal white blood cell count, no fever. His blood cultures on admission was growing a 1 out of 3 organisms coag negative staph thought to be contaminant. Repeat cultures were negative to date. He will discharge home, have follow-up with infectious disease as well as primary care provider. He is to return for any concerns. He was encouraged not to use methamphetamine, or any other IV drug. Psychiatry did evaluate the patient and did not see a reason for hold or psychiatric stay during this hospital stay. Physical Exam Narrative: EXAM NARRATIVE: General exam no distress Neck is supple Cardiovascular regular rate and rhythm Lungs clear Abdomen is soft Extremities no cyanosis clubbing or edema Discharge Data Data Completed and Pending: Completed Studies During Hospitalization Category Date Time Status CT abdomen pelvis w con* [id number] Urge nt Cat Scan 03/12/21 05:09 Completed XR abdomen 1V* [id number] Routine Exams 03/13/21 08:38 Completed Pending at discharge Category Date Time Status Blood Culture Sta t Lab 03/12/21 07:53 Results Blood Culture Sta t Lab 03/14/21 11:33 Results Clostridioides Di fficile PCR Routin e Lab 03/12/21 08:06 Uncollected Vancomycin Trough Timed Lab 03/16/21 15:00 Ordered Labs from last 24 hours 03/14/21 03/14/21 03/14/21 11:53 06:25 02:59 WBC RBC Hgb Hct MCV MCH MCHC RDW Plt Count MPV Neut % (Auto) Lymph % (Auto) [place] % (Auto) Eos % (Auto) Baso % (Auto) Neut # (Auto) Lymph # (Auto) [place] # (Auto) Eos # (Auto) Baso # (Auto) Nucleated RBC % (a uto) Nucleated RBCs # Sodium Potassium Chloride Carbon Dioxide Anion Gap BUN Creatinine GFR Calculation Glucose POC Glucose 168 H 142 H Calculated Osmolal ity Calcium Vancomycin Trough 22.1 H 03/14/21 03/14/21 03/13/21 02:59 02:59 20:25 WBC 4.4 RBC 4.25 Hgb 12.5 Hct 37.5 L MCV 88.2 MCH 29.4 MCHC 33.3 RDW 14.2 Plt Count 192 MPV 9.7 Neut % (Auto) 53.0 Lymph % (Auto) 39.9 [place] % (Auto) 5.7 Eos % (Auto) 0.7 Baso % (Auto) 0.2 Neut # (Auto) 2.33 Lymph # (Auto) 1.8 [place] # (Auto) 0.3 Eos # (Auto) 0.0 Baso # (Auto) 0.0 Nucleated RBC % (a uto) 0 Nucleated RBCs # 0.0 Sodium 137 Potassium 4.0 Chloride 105 Carbon Dioxide 21 L Anion Gap 15.0 BUN 11 Creatinine 0.8 GFR Calculation 102.7 Glucose 175 H POC Glucose 186 H Calculated Osmolal ity 288 Calcium 8.8 Vancomycin Trough 03/13/21 16:18 WBC RBC Hgb Hct MCV MCH MCHC RDW Plt Count MPV Neut % (Auto) Lymph % (Auto) [place] % (Auto) Eos % (Auto) Baso % (Auto) Neut # (Auto) Lymph # (Auto) [place] # (Auto) Eos # (Auto) Baso # (Auto) Nucleated RBC % (a uto) Nucleated RBCs # Sodium Potassium Chloride Carbon Dioxide Anion Gap BUN Creatinine GFR Calculation Glucose POC Glucose 165 H Calculated Osmolal ity Calcium Vancomycin Trough Vitals: Last Vital Signs Temp 98.3 F 03/14/21 11:55 Pulse 72 03/14/21 11:55 Resp 18 03/14/21 11:55 BP 155/109 03/14/21 11:55 Pulse Ox 95 03/14/21 11:55 Discharge Plan Discharge Patient Disposition: Home Condition: Stable Prescriptions: New gabapentin 300 mg Capsule 300 mg PO TID Qty: 90 RF: 0 escitalopram oxalate 10 mg Tablet 10 mg PO DAILY Qty: 30 RF: 0 pantoprazole 40 mg Tablet,Delayed Release (Dr/Ec) 40 mg PO DAILY Qty: 30 RF: 0 metformin 500 mg tablet 500 mg PO BID Qty: 60 RF: 0 No Action Unable to Assess RF: 0 Discharge Orders: Discharge Order (Routine); Ordered 03/14/21 Ordered By: Khari Miranda Referrals: Jordan Farias DO [Physician] - 03/21/21 10:00 am (You have an appointment to establish primary care with Dr. Farias scheduled for next at 10:00AM. If you cannot make this appointment, please notify their office at [phone] prior to appointment date.) Maria Elena Johnson MD [Hospitalist] - Discharge Diet: Diabetic Discharge Activity: Increase activity as tolerated Patient Instructions: Opioid Safety Activity Restrictions/Additional Instructions: Follow-up with infectious disease on the Return for any concerns Follow consistent carb diet Take all medicines as prescribed. Discharge Attestations Time Spent in Discharge Care*: greater than 30 min Status at Discharge: Cognitive status at discharge: cognitively intact, Behavioral status at discharge: cooperative, Quality Metrics Clinical Quality Measures During this hospital stay, did patient experience: None Coding Level of Care Code Acute [facility] FW DC note Diagnoses DDD (degenerative disc disease), lumbosacral M51.37 Discitis M46.40 Bowel obstruction K56.609 Depressive disorder F32.9 Septic arthritis due to Streptococcus species M00.20 Sepsis A40.8 Sepsis acute organ dysfunction status: without acute organ dysfunction Sepsis type: Streptococcus, other DKA (diabetic ketoacidoses) E11.10 Cellulitis and abscess of left leg L03.116; L02.416 Substance abuse F19.10 Methamphetamine abuse F15.10
[2021-03-14 15:03] VITALS: BP 147/89; PULSE 77; RESP 18; TEMP 36.6; O2SAT 98
--- NOTE | 2021-03-15 15:23 | PC.SOCIAL ---
discharge follow up. patient was hard to talk with. reviewed new medications, patient reports he is taking new medications as directed except for the metformin because he takes insulin at home. patient given dates and times of follow up appointments. patient agrees to go to these appointments. patient denies any concerns.
== END 2021-03-14 17:30 | disposition home or self-care (01) | DRG 390 ==
LOC: ER 08:33 → MEDSURG 15:21
PROVIDERS: Emergency Medicine; Admitting Provider Internal Medicine; Emergency Provider Family Medicine; Visit Provider Internal Medicine
DX: K56.609 Unspecified intestinal obstruction, unspecified as to partial versus complete obstruction (principal); E11.9 Type 2 diabetes mellitus without complications; Z95.3 Presence of xenogenic heart valve; I25.10 Atherosclerotic heart disease of native coronary artery without angina pectoris; B19.20 Unspecified viral hepatitis C without hepatic coma; I10 Essential (primary) hypertension; F20.9 Schizophrenia, unspecified; M51.37 Other intervertebral disc degeneration, lumbosacral region; G62.9 Polyneuropathy, unspecified; Z91.19 Patient's noncompliance with other medical treatment and regimen; F15.10 Other stimulant abuse, uncomplicated; F40.240 Claustrophobia
CPT/HCPCS: 36415; 36416; 74018; 74177; 80048; 80053; 80202; 81003; 82962; 83605; 83690; 83735; 85025; 85651; 86140; 87040; 87205; 87806; 96365; 96367; 96372; 96375; 99285; C9113; J1170; J1630; J1650; J2060; J2405; J2543; J3370; J7030; J7050; Q0163; Q9967

== ENCOUNTER → 2021-03-21 11:15 | Outpatient (BNVA) | payer BC, MEDICAID, SELFPAY | PROVIDERS: Visit Provider Family Medicine | DX: E11.9 Type 2 diabetes mellitus without complications (principal); I10 Essential (primary) hypertension; Z95.3 Presence of xenogenic heart valve; Z79.4 Long term (current) use of insulin | CPT/HCPCS: 83036 ==

== ENCOUNTER 2021-04-15 15:56 | Inpatient (IN) | payer BC, MEDICAID, SELFPAY ==
[2021-04-15 16:11] VITALS: BP 156/86; PULSE 129; RESP 22; TEMP 36.6; O2SAT 96
--- NOTE | 2021-04-15 16:41 | W.ED.PSYCHS ---
HPI - Psych General: Chief Complaint: Psychiatric Symptoms Stated Complaint: MHE Time Seen by Provider: 04/15/21 16:41 History of Present Illness: HPI Narrative: 51-year-old male presents to the emergency room with complaint of auditory and visual hallucinations encouraging him to harm others. He denies use of alcohol or drugs. Is a history of diabetes mellitus hypertension he has previously been admitted 10 PM for similar complaints. He denies actually doing anything to harm himself or others at this point. MD complaint: altered mental status Onset (ago): hour(s) Duration: constant History of same: Yes Relieving factors: medication Exacerbating factors: none Context: not taking psychiatric medications Associated psychiatric symptoms: homicidal ideation, racing thoughts, auditory hallucinations and visual hallucinations Associated symptoms: Deny suicidal ideation Treatments prior to arrival: none Review of Systems Const: Denies: fever(s), chills, body aches, change in appetite, fatigue or malaise ENMT: Denies: throat pain, ear or mastoid pain, nasal discharge or nasal congestion Card: Denies: chest pain, edema, dyspnea on exertion or orthopnea Resp: Denies: dyspnea, productive cough or non-productive cough GI: Denies: abdominal pain, nausea, vomiting, hematemesis, coffee ground emesis, diarrhea, constipation, bloating, hematochezia or melena : Denies: flank pain, dysuria, urinary frequency or urinary urgency Skin/Breast: Denies: rash or pruritus Psych: Denies: suicidal ideation [facility] ED PFSH: Medical History Bowel obstruction CAD (coronary artery disease) Cellulitis and abscess of left leg Diabetes Hepatitis C History of bacterial endocarditis Hypertension Septic arthritis due to Streptococcus species Surgical History History of aortic valve replacement with bioprosthetic valve History of heart valve replacement History of mitral valve replacement with bioprosthetic valve Family History Other Diabetes No significant family history Social History Smoking and tobacco status: current every day smoker Alcohol intake: current Alcohol intake frequency: holidays/special occasions only Housing: Other Details: Homeless Current occupational status: unemployed Physical Exam Const: COMMON NORMALS: no acute distress GENERAL APPEARANCE: cooperative and comfortable ORIENTATION/CONSCIOUSNESS: Yes awake HENMT: COMMON NORMALS: normocephalic, atraumatic and hearing grossly normal bilaterally HEAD & SCALP: normocephalic and atraumatic Neck/C-Spine: COMMON NORMALS: no JVD Resp: COMMON NORMALS: normal respiratory effort, No retractions, No use of accessory muscles and clear to auscultation bilaterally AUSCULTATION: clear to auscultation bilaterally Cardio: COMMON NORMALS: no JVD, regular rate, regular rhythm and No murmurs present (Cardio) RATE: regular rate RHYTHM: regular rhythm GI: COMMON NORMALS: Soft to palpation and No hepatosplenomegaly present AUSCULTATION: Yes normoactive bowel sounds PALPATION: Yes Soft to palpation, No Tenderness to palpation present (GI), No Guarding due to palpation present (GI) and Yes No hepatosplenomegaly present Extremity: COMMON NORMALS: normal to inspection, capillary refill normal, no clubbing, cyanosis or edema, no calf tenderness and no pedal edema Psych: ATTITUDE: Yes bizarre and Yes agitated ACTIVITY/MOTOR BEHAVIOR: Yes psychomotor agitation SPEECH: Yes rapid THOUGHT PROCESS: disorganized, Flight of ideas present, Loose association thought process present, Tangential thought process present and racing thoughts THOUGHT CONTENT: Yes Homicidality present and Yes Hallucination(s) present INSIGHT: Poor insight present (Psych) JUDGEMENT: Poor judgement present (Psych) Skin: COMMON NORMALS: no rashes or lesions noted GENERAL SKIN EXAM: no rashes or lesions noted Course Vital Signs: Vital signs: Vital Signs Temperature 97.2 F L 04/17/21 14:00 Pulse Rate 80 04/17/21 11:17 Respiratory Rate 18 04/17/21 14:00 Blood Pressure 136/105 04/17/21 11:17 Pulse Oximetry 97 04/17/21 11:17 MDM - Psych MDM Narrative: Medical decision making narrative: Patient presents with suicidal homicidal ideation discussed Dr. Domingo orders written patient to be admitted. Lab Data: Labs: Lab Results 04/15/21 04/15/21 04/15/21 16:20 16:30 16:30 WBC 8.2 10^3/uL 10^3/ uL (4.0-10.0) RBC 4.86 10^6/uL 10^6 /uL (4.1-5.3) Hgb 14.1 g/dL g/dL (11.7-16.6) Hct 42.2 % % (42.0-52.0) MCV 86.8 fl fl (80-94) MCH 29.0 pg pg (28.0-34.0) MCHC 33.4 g/dL g/dL (30.0-36.0) RDW 13.2 % % (12.1-15.1) Plt Count 230 10^3/cmm 10^3 /cmm (130-400) MPV 10.0 fL fL (7.4-10.4) Neut % (Auto) 68.4 % % Lymph % (Auto) 25.0 % % Nobles % (Auto) 4.3 % % Eos % (Auto) 0.6 % % Baso % (Auto) 0.5 % % Neut # (Auto) 5.62 10^3/uL 10^3 /uL (1.8-7.7) Lymph # (Auto) 2.1 10^3/uL 10^3/ uL (0.8-4.8) Nobles # (Auto) 0.4 10^3/uL 10^3/ uL (0.2-0.9) Eos # (Auto) 0.1 10^3/uL 10^3/ uL (0.0-0.8) Baso # (Auto) 0.0 10^3/uL 10^3/ uL (0.0-0.1) Nucleated RBC % (a uto) 0 % % Nucleated RBCs # 0.0 /100WBC /100W BC Sodium 139 mmol/L mmol/L (136-145) Potassium 3.8 mmol/L mmol/L (3.5-5.1) Chloride 101 mmol/L mmol/L (98-107) Carbon Dioxide 16 mmol/L L mmol/ L (22-29) Anion Gap 25.8 H (5-19) BUN 17 mg/dL mg/dL (6-20) Creatinine 1.1 mg/dL mg/dL (0.7-1.2) GFR Calculation 71.1 mL/min L mL/ min (90-130) Glucose 202 mg/dL H mg/dL (65-115) POC Glucose 217 mg/dL H mg/dL (70-110) Calculated Osmolal ity 295 mOsm/kg mOsm/ kg (285-295) Calcium 8.8 mg/dL mg/dL (8.5-10.5) Total Bilirubin 0.2 mg/dL mg/dL (0.15-1.2) AST 13 U/L U/L (0-40) ALT 15 U/L U/L (0-41) Alkaline Phosphata se 95 IU/L IU/L (40-130) Total Protein 7.7 g/dL g/dL (6.6-8.7) Albumin 4.6 g/dL g/dL (3.5-5.2) Globulin 3.1 g/dL g/dL (1.3-4.6) Urine Color Urine Appearance Urine pH Ur Specific Gravit y Urine Protein Urine Glucose (UA) Urine Ketones Urine Blood Urine Nitrate Urine Bilirubin Urine Urobilinogen Ur Leukocyte Sarah ase Urine RBC Urine WBC Ur Squamous Epith Cells Amorphous Sediment Urine Bacteria Hyaline Casts Urine Mucus Salicylates < 0.3 mg/dL L mg/ dL (3-10) Urine Opiates Scre en Acetaminophen < 5.0 ug/mL L ug/ mL (10-30) Ur Barbiturates Sc reen Ur Phencyclidine S crn Ur Amphetamines Sc reen U Benzodiazepines Scrn Urine Cocaine Scre en U Marijuana (THC) Screen Ethyl Alcohol < 10 mg/dL mg/dL (0-10) 04/15/21 04/15/21 17:47 17:47 WBC RBC Hgb Hct MCV MCH MCHC RDW Plt Count MPV Neut % (Auto) Lymph % (Auto) [place] % (Auto) Eos % (Auto) Baso % (Auto) Neut # (Auto) Lymph # (Auto) [place] # (Auto) Eos # (Auto) Baso # (Auto) Nucleated RBC % (a uto) Nucleated RBCs # Sodium Potassium Chloride Carbon Dioxide Anion Gap BUN Creatinine GFR Calculation Glucose POC Glucose Calculated Osmolal ity Calcium Total Bilirubin AST ALT Alkaline Phosphata se Total Protein Albumin Globulin Urine Color Yellow (Yellow) Urine Appearance Hazy A (CLEAR) Urine pH 5 (5-7) Ur Specific Gravit y 1.025 (1.005-1.030) Urine Protein 2+ H (Negative) Urine Glucose (UA) Norm (Normal) Urine Ketones Negative (Negative) Urine Blood Neg (Negative) Urine Nitrate Negative (Negative) Urine Bilirubin Neg (Negative) Urine Urobilinogen Norm mg/dL mg/dL (Negative) Ur Leukocyte Sarah ase Negative (Negative) Urine RBC Not Reportable Urine WBC 0-4 /hpf H /hpf (0-5) Ur Squamous Epith Cells Not Reportable Amorphous Sediment Not Reportable Urine Bacteria Trace /hpf /hpf (NONE) Hyaline Casts 5-10 /lpf H /lpf Urine Mucus 2+ /hpf /hpf Salicylates Urine Opiates Scre en Negative ng/mL ng /mL (Negative) Acetaminophen Ur Barbiturates Sc reen Negative ng/mL ng /mL (Negative) Ur Phencyclidine S crn Negative ng/mL ng /mL (Negative) Ur Amphetamines Sc reen Negative ng/mL ng /mL (Negative) U Benzodiazepines Scrn Negative ng/mL ng /mL (Negative) Urine Cocaine Scre en Negative ng/mL ng /mL (Negative) U Marijuana (THC) Screen Positive ng/mL H ng/mL (Negative) Ethyl Alcohol Discharge Plan Discharge Patient Disposition: Admitted As Inpatient Admit Provider: Sampson Domingo Clinical Impression: Schizophrenia, Diabetes mellitus, with long-term current use of insulin, H/O heart valve replacement with bioprosthetic valve, Substance abuse, Methamphetamine abuse, Essential hypertension, Hypertension, Suicidal ideation, Homicidal ideation Condition: Stable Coding Level of Care Code ED Chlorine Cells Operator for Janis Fwd Exam Comprehensive
[2021-04-15 17:01] LABS: Glucose Point of Care 217 mg/dL (70-110)
[2021-04-15 17:03] LABS: Basophils % 0.5 %; Eosinophils # 0.1 10^3/uL (0.0-0.8); Eosinophils % 0.6 %; Hematocrit 42.2 % (42.0-52.0); Hemoglobin 14.1 g/dL (11.7-16.6); Lymphocytes # 2.1 10^3/uL (0.8-4.8); Mean Corpuscular HGB Conc 33.4 g/dL (30.0-36.0); Mean Corpuscular Volume 86.8 fl (80-94); Monocytes # 0.4 10^3/uL (0.2-0.9); Monocytes % 4.3 %; Neutrophils # 5.62 10^3/uL (1.8-7.7); Neutrophils % 68.4 %; Nucleated Red Blood Cells % 0 %; Platelet Count 230 10^3/cmm (130-400); Red Blood Count 4.86 10^6/uL (4.1-5.3); Red Cell Distribution Width 13.2 % (12.1-15.1); White Blood Count 8.2 10^3/uL (4.0-10.0)
[2021-04-15 17:32] LABS: Alanine Aminotransferase 15 U/L (0-41); Albumin Level 4.6 g/dL (3.5-5.2); Alkaline Phosphatase 95 IU/L (40-130); Anion Gap 25.8 (5-19); Aspartate Amino Transferase 13 U/L (0-40); Blood Urea Nitrogen 17 mg/dL (6-20); Calcium 8.8 mg/dL (8.5-10.5); Carbon Dioxide 16 mmol/L (22-29); Chloride 101 mmol/L (98-107); Globulin 3.1 g/dL (1.3-4.6); Glomerular Filtration Rate 71.1 mL/min (90-130); Glucose 202 mg/dL (65-115); Osmolality Calculated 295 mOsm/kg (285-295); Potassium 3.8 mmol/L (3.5-5.1); Sodium 139 mmol/L (136-145); Total Bilirubin 0.2 mg/dL (0.15-1.2); Total Protein 7.7 g/dL (6.6-8.7)
[2021-04-15 17:33] LABS: Acetaminophen < 5.0 ug/mL (10-30); Alcohol Level < 10 mg/dL (0-10); Salicylate < 0.3 mg/dL (3-10)
[2021-04-15 17:45] VITALS: BP 165/86; PULSE 95; RESP 22; TEMP 36.7; O2SAT 97
[2021-04-15 17:56] LABS: Charge for UA Resulting for Rev
[2021-04-15 18:08] LABS: Amphetamines Screen Urine Negative (Negative); Barbiturates Screen Urine Negative (Negative); Benzodiazepines Screen Urine Negative (Negative); Cocaine Screen Urine Negative (Negative); Opiate Screen Urine Negative (Negative); PCP Screen Urine Negative (Negative); THC Screen Urine Positive (Negative)
[2021-04-15] MEDS: LORazepam 2 mg/mL INJ 1 mL IVP (18:14)
[2021-04-15 18:16] LABS: Bilirubin Urine Neg (Negative); Blood Urine Neg (Negative); Glucose Urine UA Norm (Normal); Ketones Urine Negative (Negative); Leukocyte Esterase Urine Negative (Negative); Nitrate Urine Negative (Negative); Protein Urine 2+ (Negative); Specific Gravity, Urine 1.025 (1.005-1.030); Urine Appearance Hazy (CLEAR); Urine Color Yellow (Yellow); Urobilinogen Urine Norm (Negative); pH Urine 5 (5-7)
[2021-04-15 18:17] LABS: Add Urine Culture? No; Add Urine Microscopic? YES; Bacteria Urine TRACE /hpf; Mucus Urine 2+ /hpf; WBC Urine 0-4 /hpf (0-5)
[2021-04-15] MEDS: ziprasidone 20 mg/mL SDV IM (18:21)
[2021-04-15 18:28] VITALS: BP 146/82; PULSE 100; RESP 22; TEMP 36.4; O2SAT 98
[2021-04-15 20:09] LABS: Glucose Point of Care 164 mg/dL (70-110)
--- NOTE | 2021-04-15 20:13 | PC.NURSE ---
Admission- Unable to comlete admission assessments at this time. Patient lethargic after IM meds given prior to admission to unit. Patient in bed at this time snoring loudly. FSBS 164. VS WNL.
[2021-04-15 20:17] VITALS: BP 131/85; PULSE 85; RESP 25; TEMP 37; O2SAT 97
--- NOTE | 2021-04-15 20:32 | PC.NURSE ---
Unable to assess at this time. Patient sleeping.
--- NOTE | 2021-04-15 20:33 | PC.NURSE ---
Unable to teach due to lethargy.
--- NOTE | 2021-04-15 22:09 | PC.NURSE ---
Unable to provide teaching d/t lethargy.
[2021-04-16 06:00] VITALS: BP 141/86; PULSE 81; RESP 21; TEMP 36.8; O2SAT 95
[2021-04-16 06:25] LABS: Glucose Point of Care 155 mg/dL (70-110)
--- NOTE | 2021-04-16 06:52 | PC.NURSE ---
Patient has remained in bed throughout night sleeping soundly. Unable to complete intake assessments.
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
[2021-04-16 14:00] VITALS: BP 112/74; PULSE 100; RESP 20; TEMP 36.3; O2SAT 96
[2021-04-16] MEDS: haloperidol inj 5 mg/mL INJ 1 mL IM (15:52)
[2021-04-16] MEDS: LORazepam 2 mg/mL INJ 1 mL IM (15:52)
[2021-04-16] MEDS: diphenhydrAMINE 50 mg/mL SDV 1mL IM (15:52)
--- NOTE | 2021-04-16 15:52 | PC.NURSE ---
Patient rapidly pacing the hallway, very deep respiration, 'huffing' stating 'I don't want to hurt any of y'all but these meds ain't workin. you gotta give me a shannan, I'm gonna loose it. Discussed with Dr. Domingo, to give patient IM Benadryl, Ativan, Haldol per PRN 12 pack orders. Patient cooperated with injection. After patient requested to take a shower and supplies given to patient.
--- NOTE | 2021-04-16 17:53 | PC.NURSE ---
Patient refused his blood sugar. States the shot helped him.
--- NOTE | 2021-04-16 19:10 | PC.NURSE ---
REFUSED TO LET STAFF GET BLOOD SUGAR AT [facility]
[2021-04-16 20:57] VITALS: RESP 22
--- NOTE | 2021-04-16 20:57 | PC.NURSE ---
Addendum entered by Melody Calixto 04/16/21 20:58: nurse was notified of pts refusal Original Note: pt refused vitals and blood sugar check
[2021-04-17] MEDS: hyDROXYzine 25 mg Capsule 50 MG PO (02:58)
[2021-04-17] MEDS: ondansetron 4 MG Tablet PO ×2 (03:16→11:09)
[2021-04-17 03:18] LABS: Glucose Point of Care 183 mg/dL (70-110)
--- NOTE | 2021-04-17 05:47 | PC.NURSE ---
Patient resting in bed with eyes closed at start of shift. Up at 0200 with c/o anxiety. Took PRN Vistaril to good effect. Requested to have FSBS checked since he refused when due in at HS. FSBS was 183 at that time. Was up at 0300 and was cooperative at that time. Patient nauseous at that time and took PRN meds to good effect. Now back in bed resting with eyes closed.
[2021-04-17 06:00] VITALS: BP 113/70; PULSE 81; RESP 23; TEMP 37.1; O2SAT 97
[2021-04-17 10:43] LABS: Glucose Point of Care 170 mg/dL (70-110)
[2021-04-17] MEDS: LORazepam 2 mg/mL INJ 1 mL IM (11:09)
[2021-04-17] MEDS: haloperidol inj 5 mg/mL INJ 1 mL IM (11:10)
[2021-04-17] MEDS: diphenhydrAMINE 50 mg/mL SDV 1mL IM (11:10)
[2021-04-17 11:17] VITALS: BP 136/105; PULSE 80; RESP 20; TEMP 36.1; O2SAT 97
[2021-04-17] MEDS: acetaminophen 325 mg Tablet 650 MG PO (11:18)
--- NOTE | 2021-04-17 11:19 | PC.NURSE ---
Patient in room, kneeling at bedside, screaming and growling, threw mattress across room. I don't take Metformin. I don't check my sugar, just give me my insulin. Patient saying I'm dizzy, I don't know where I'm at . Patient shut himself in the bathroom. Talking with patient until he came out of bathroom. Encouraged him to sit on the bed, checked vital signs, 136/105-80. Patient repeating, I don't want to hurt anything. Huffing and growling. Medicated per PRN orders with IM Ativan 2mg, Benadryl 50mg and haldol 5mg. Patient sitting on side of bed quietly.
--- NOTE | 2021-04-17 11:37 | W.PM.NPUPNS ---
Subjective NPU Subjective: Interval history: Shree presents today reporting that he still struggling. Is been very resistant to taking medication including his medication for his diabetes. We discussed the risk benefits and alternatives of starting Invega 6 mg p.o. every morning and he understood and agreed proceed as is documented in this note. Mental Status Exam MSE Comments: This is an obese white male in hospital gown with limited grooming and eye contact with poor dentition. No abnormal movements except for psychomotor agitation. Significant tattooing over his exposed skin including his stomach with some statement 100% [place]. Mostly cooperative with exam in no significant distress. Speech was slightly dysarthric and increased rate and volume. Mood described as depressed , affect flustered. Thought process organized. Thought content: Patient endorsed suicidal and homicidal ideation, there were no delusions reported noted, he endorsed any auditory or visual hallucinations. Attention and concentration are limited memory appears mostly unreliable but none were formally tested. He is alert and oriented x3. Insight and judgment are impaired, impulse control appears impaired. Vitals/I&O/Wt Last Vital Signs Temp 97.0 F L 04/17/21 11:17 Pulse 80 04/17/21 11:17 Resp 20 H 04/17/21 11:17 BP 136/105 04/17/21 11:17 Pulse Ox 97 04/17/21 11:17 Data NPU : 04/15/21 16:30 04/15/21 16:30 A&P Additional A&P Information (1) Diabetes mellitus, with long-term current use of insulin: (2) Essential hypertension: (3) Methamphetamine abuse: (4) DDD (degenerative disc disease), lumbosacral: (5) Depressive disorder: (6) Schizophrenia: (7) Substance abuse: (8) H/O heart valve replacement with bioprosthetic valve: (9) Diabetes: (10) Hypertension: (11) Suicidal ideation: (12) Homicidal ideation: Additional A&P Information This is a 51-year-old white male with a long history of depression and addiction particularly methamphetamine which is often led to psychosis agitation who presents reporting that he has some depression and significant agitation with reports of suicidal and homicidal ideation with a plan to go and inflict as much harm and hurting to the larger segment of the community that he can.. 1. Continue current medication. Start Invega 6 mg p.o. daily and then hopefully move to the injectable. 2. Continue every 15 minute checks for safety. 3. Encourage individual, group and milieu therapies. 4. Encourage sober living treatment after discharge at the highest level of care to which he is willing to commit. 5. We will monitor for safety for himself in the community prior to discharge. Involuntary Hold Information 96 Hour Hold: 96 Hour Involuntary Admission: No Attestations NPU Medical Necessity Statement*: Inpatient hospitalization is medically necessary and the clinically appropriate intervention at this time. We will initiate medications and make changes as indicated. Likely length of stay 3-5 days. Coding Level of Care Code Acute Regulatory Compliance Engineer for Janis Barakat
[2021-04-17] MEDS: lisinopril 20 mg Tablet PO (11:38)
[2021-04-17] MEDS: escitalopram 10 mg Tablet PO (11:38)
[2021-04-17] MEDS: pantoprazole DR 40 mg Tablet PO (11:38)
[2021-04-17] MEDS: paliperidone ER 6 mg Tablet PO (11:55)
[2021-04-17] MEDS: insulin aspart 70/30 100 units/1 mL 20 UNIT SUBCUT (13:07)
--- NOTE | 2021-04-17 13:36 | NPU.GN ---
[facility] Unit Group Topic: Coping Checkers General Mood of Group: Shree wanted to sleep and did not attend group.
[2021-04-17 14:00] VITALS: RESP 18; TEMP 36.2
[2021-04-17] MEDS: gabapentin 300 mg Capsule PO ×2 (15:22→21:25)
[2021-04-17 20:08] VITALS: RESP 19
[2021-04-18 06:00] VITALS: RESP 18
[2021-04-18] MEDS: pantoprazole DR 40 mg Tablet PO (08:57)
[2021-04-18] MEDS: gabapentin 300 mg Capsule PO ×2 (08:57→15:44)
[2021-04-18] MEDS: paliperidone ER 6 mg Tablet PO (08:57)
[2021-04-18] MEDS: escitalopram 10 mg Tablet PO (08:57)
[2021-04-18] MEDS: lisinopril 20 mg Tablet PO (08:58)
[2021-04-18] MEDS: hyDROXYzine 25 mg Capsule 50 MG PO (08:58)
[2021-04-18 09:27] LABS: Glucose Point of Care 370 mg/dL (70-110)
[2021-04-18] MEDS: insulin aspart 70/30 100 units/1 mL 20 UNIT SUBCUT (10:14)
[2021-04-18] MEDS: OLANZapine 5 mg ODT PO (10:43)
[2021-04-18 11:41] LABS: Glucose Point of Care 167 mg/dL (70-110)
--- NOTE | 2021-04-18 13:25 | W.PM.NPUPNS ---
Subjective NPU Subjective: Interval history: He said that he is doing much better. He says that he is doing better since he has been on the Invega, Lexapro and gabapentin. He says that the gabapentin helps with the pain in his feet from the diabetes. He denies any recent drug use other than a little marijuana. He continues to have voices but they are significantly decreased. He denies any suicidal ideation. He says he has been cooperative with the treatment of his diabetes with blood sticks and insulin. That was not the case initially. He has been in and out of the hospital over the last few years. He agreed to start some Invega sustain him to try to stabilize him and decrease his psychotic episodes. Mental Status Exam MSE Comments: This is an obese white male in hospital gown with limited grooming and eye contact with poor dentition. Psychomotor activity is normal. There were no abnormal movements. Speech is clear and coherent and of regular rate and rhythm.. Mood described good, affect euthymic. Thought process organized. Thought content: He denies any suicidal ideation in the last 36 hours. He does admit to auditory hallucinations but they are significantly decreased and are not bothering him at this point. He said that they come and go. There are no delusions evident. Attention and concentration are limited memory appears mostly unreliable but none were formally tested. He is alert and oriented x3. Insight and judgment are impaired, impulse control appears impaired. Vitals/I&O/Wt Last Vital Signs Temp 97.2 F L 04/17/21 14:00 Pulse 80 04/17/21 11:17 Resp 18 04/18/21 06:00 BP 136/105 04/17/21 11:17 Pulse Ox 97 04/17/21 11:17 Data NPU : 04/15/21 16:30 04/15/21 16:30 A&P Assessment and plan (1) Diabetes mellitus, with long-term current use of insulin: Status: Acute (2) Essential hypertension: Status: Acute (3) Methamphetamine abuse: Status: Acute (4) DDD (degenerative disc disease), lumbosacral: Status: Acute (5) Depressive disorder: Status: Acute (6) Schizophrenia: Status: Acute (7) Substance abuse: Status: Acute (8) H/O heart valve replacement with bioprosthetic valve: Status: Acute (9) Diabetes: Status: Acute Qualifiers: Diabetes mellitus type: type 2 Diabetes mellitus complication status: with hyperglycemia (10) Hypertension: Status: Acute (11) Suicidal ideation: Status: Acute (12) Homicidal ideation: Status: Acute Additional A&P Information (1) Diabetes mellitus, with long-term current use of insulin: (2) Essential hypertension: (3) Methamphetamine abuse: (4) DDD (degenerative disc disease), lumbosacral: (5) Depressive disorder: (6) Schizophrenia: (7) Substance abuse: (8) H/O heart valve replacement with bioprosthetic valve: (9) Diabetes: (10) Hypertension: (11) Suicidal ideation: (12) Homicidal ideation: Additional A&P Information This is a 51-year-old white male with a long history of depression and addiction particularly methamphetamine which is often led to psychosis agitation who presents reporting that he has some depression and significant agitation with reports of suicidal and homicidal ideation with a plan to go and inflict as much harm and hurting to the larger segment of the community that he can.. 1. Continue current medication. Continue Invega 6 mg p.o. daily. Invega sustain a 234 mg given IM today.. 2. Continue every 15 minute checks for safety. 3. Encourage individual, group and milieu therapies. 4. Encourage sober living treatment after discharge at the highest level of care to which he is willing to commit. 5. We will monitor for safety for himself in the community prior to discharge. Involuntary Hold Information 96 Hour Hold: 96 Hour Involuntary Admission: No Attestations NPU Medical Necessity Statement*: Inpatient hospitalization is medically necessary and the clinically appropriate intervention at this time. We will initiate medications and make changes as indicated Coding Level of Care Code Acute Evening Sitter for g Fwd Diagnoses Diabetes mellitus, with long-term current use of insulin E11.9; Z79.4 Essential hypertension I10 Methamphetamine abuse F15.10 DDD (degenerative disc disease), lumbosacral M51.37 Depressive disorder F32.9 Schizophrenia F20.9 Substance abuse F19.10 H/O heart valve replacement with bioprosthetic valve Z95.3 Diabetes E11.9 Diabetes mellitus type: type 2 Diabetes mellitus complication status: with hyperglycemia Hypertension I10 Suicidal ideation R45.851 Homicidal ideation R45.850
[2021-04-18 14:00] VITALS: BP 136/105; PULSE 80; RESP 18; TEMP 36.2; O2SAT 97
[2021-04-18] MEDS: paliperidone palmitate 234 mg Syringe IM (16:09)
[2021-04-18 16:31] LABS: Glucose Point of Care 127 mg/dL (70-110)
[2021-04-18] MEDS: ondansetron 4 MG Tablet PO (17:52)
[2021-04-18] MEDS: diphenhydrAMINE 50 mg/mL SDV 1mL IM (18:29)
[2021-04-18] MEDS: LORazepam 2 mg/mL INJ 1 mL IM (18:29)
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
[2021-04-18] MEDS: haloperidol inj 5 mg/mL INJ 1 mL IM (18:30)
[2021-04-18 19:33] LABS: Glucose Point of Care 148 mg/dL (70-110)
[2021-04-18 19:57] VITALS: BP 107/73; PULSE 86; RESP 17; O2SAT 97
[2021-04-19 06:00] VITALS: BP 119/74; PULSE 85; RESP 17; TEMP 36.6; O2SAT 97
[2021-04-19 06:27] LABS: Glucose Point of Care 140 mg/dL (70-110)
[2021-04-19] MEDS: paliperidone ER 6 mg Tablet PO (08:50)
[2021-04-19] MEDS: gabapentin 300 mg Capsule PO ×3 (08:50→20:12)
[2021-04-19] MEDS: pantoprazole DR 40 mg Tablet PO (08:50)
[2021-04-19] MEDS: escitalopram 10 mg Tablet PO (08:50)
[2021-04-19] MEDS: lisinopril 20 mg Tablet PO (08:50)
[2021-04-19] MEDS: insulin aspart 70/30 100 units/1 mL 20 UNIT SUBCUT (09:58)
[2021-04-19 11:11] LABS: Glucose Point of Care 197 mg/dL (70-110)
--- NOTE | 2021-04-19 13:05 | NPU.GN ---
[facility] Unit Group Topic: Coping Bingo General Mood of Group: Patient did not come to group today. Did not feel well.
[2021-04-19 14:00] VITALS: BP 119/74; PULSE 85; RESP 17; TEMP 36.6; O2SAT 97
--- NOTE | 2021-04-19 14:26 | P.NPUPN_ITS ---
Subjective NPU Subjective: Interval history: He says he is doing well. He feels like he is ready to go home. Unfortunately, last night he was extremely agitated and bumping his head up against the wall and hitting things. That happened after he got off the phone. He was very angry at the person that he had been talking to and talking about hurting them. He was given a shot and could calm down. He did not want to discuss the phone call today. He said it was a misunderstanding and it is now resolved. He has required several interventions for similar problems. He was told that he needed to go a few days without needing to get a shot for his agitated behavior before we could allow him to leave. Mental Status Exam MSE Comments: This is an obese white male in hospital gown with limited gr ooming and eye contact with poor dentition. Psychomotor activity is normal. There were no abnormal movements. Speech is clear and coherent and of regular rate and rhythm. Mood described good, affect euthymic. Thought process organized. Thought content: He denies any suicidal ideation in the last 2 days. He does admit to auditory hallucinations but they are significantly decreased and are not bothering him at this point. He said that they come and go. There are no delusions evident. Attention and concentration are limited memory appears mostly unreliable but none were formally tested. He is alert and oriented x3. Insight and judgment are impaired, impulse control appears impaired. Vitals/I&O/Wt Last Vital Signs Temp 97.9 F 04/19/21 06:00 Pulse 85 04/19/21 06:00 Resp 17 04/19/21 06:00 BP 119/74 04/19/21 06:00 Pulse Ox 97 04/19/21 06:00 Data NPU : 04/15/21 16:30 04/15/21 16:30 A&P Assessment and plan (1) Diabetes mellitus, with long-term current use of insulin: Status: Acute (2) Essential hypertension: Status: Acute (3) Methamphetamine abuse: Status: Acute (4) DDD (degenerative disc disease), lumbosacral: Status: Acute (5) Depressive disorder: Status: Acute (6) Schizophrenia: Status: Acute (7) Substance abuse: Status: Acute (8) H/O heart valve replacement with bioprosthetic valve: Status: Acute (9) Diabetes: Status: Acute Qualifiers: Diabetes mellitus type: type 2 Diabetes mellitus complication status: with hyperglycemia (10) Hypertension: Status: Acute (11) Suicidal ideation: Status: Acute (12) Homicidal ideation: Status: Acute Additional A&P Information (1) Diabetes mellitus, with long-term current use of insulin: (2) Essential hypertension: (3) Methamphetamine abuse: (4) DDD (degenerative disc disease), lumbosacral: (5) Depressive disorder: (6) Schizophrenia: (7) Substance abuse: (8) H/O heart valve replacement with bioprosthetic valve: (9) Diabetes: (10) Hypertension: (11) Suicidal ideation: (12) Homicidal ideation: Additional A&P Information This is a 51-year-old white male with a long history of depression and addiction particularly methamphetamine which is often led to psychosis agitation who presents reporting that he has some depression and significant agitation with reports of suicidal and homicidal ideation with a plan to go and inflict as much harm and hurting to the larger segment of the community that he can.. 1. Continue current medication. Continue Invega 6 mg p.o. daily for 2 more days. Second Invega Sustena injection in 6 days. 2. Continue every 15 minute checks for safety. 3. Encourage individual, group and milieu therapies. 4. Encourage sober living treatment after discharge at the highest level of care to which he is willing to commit. 5. We will monitor for safety for himself in the community prior to discharge. Involuntary Hold Information 96 Hour Hold: 96 Hour Involuntary Admission: No Attestations NPU Medical Necessity Statement*: Inpatient hospitalization is medically necessary and the clinically appropriate intervention at this time. 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
[2021-04-19 17:05] LABS: Glucose Point of Care 149 mg/dL (70-110)
[2021-04-19 19:51] LABS: Glucose Point of Care 197 mg/dL (70-110)
[2021-04-19 21:32] VITALS: BP 103/72; PULSE 94; RESP 18; TEMP 36.7; O2SAT 97
[2021-04-20 06:00] VITALS: BP 112/66; PULSE 85; RESP 17; TEMP 36.7; O2SAT 96
[2021-04-20 06:43] LABS: Glucose Point of Care 164 mg/dL (70-110)
[2021-04-20] MEDS: escitalopram 10 mg Tablet PO (09:55)
[2021-04-20] MEDS: gabapentin 300 mg Capsule PO ×3 (09:55→21:26)
[2021-04-20] MEDS: lisinopril 20 mg Tablet PO (09:55)
[2021-04-20] MEDS: insulin aspart 70/30 100 units/1 mL 20 UNIT SUBCUT (09:55)
[2021-04-20] MEDS: paliperidone ER 6 mg Tablet PO (09:55)
[2021-04-20] MEDS: pantoprazole DR 40 mg Tablet PO (09:55)
[2021-04-20] MEDS: hyDROXYzine 25 mg Capsule 50 MG PO (13:10)
--- NOTE | 2021-04-20 13:10 | PC.NURSE ---
PRN Given Patient sitting in dayroom, hands clinched and rocking in his chair. When approached, patient states he has a lot on his mind and is just feeling very anxious. PRN Vistaril given. Will continue to monitor.
--- NOTE | 2021-04-20 13:57 | PC.NURSE ---
PRN Follow Up Patient walked by the nurses station. States he is feeling better and his mind has slowed down a bit. States he thinks the PRN is working. Will continue to monitor.
[2021-04-20 14:00] VITALS: BP 115/77; PULSE 100; RESP 20; TEMP 37.2; O2SAT 97
--- NOTE | 2021-04-20 14:49 | W.PM.NPUPNS ---
Subjective NPU Subjective: Interval history: He says that he is doing great. He is sitting up in the day room at a table. This is the first time that I have seen him up and out of bed during the day. He says that he and the group of his friends are committed to staying off of drugs. He says that he has been off of drugs for about 2 months. He is worried about his father. His father has Alzheimer's disease and is home by himself. He called him today and he was trying to fix I think that was leaking and could not do it. Shree is adamant that he is doing well and wants to go home tomorrow. He has not had any blowups today or yesterday so far. Mental Status Exam MSE Comments: This is an obese white male in hospital gown with limited grooming and eye contact with poor dentition. Psychomotor activity is normal. There were no abnormal movements. Speech is clear and coherent and of regular rate and rhythm. Mood described good, affect euthymic. Thought process organized. Thought content: He denies any suicidal ideation in the last 3 days. He does admit to auditory hallucinations but they are significantly decreased and are not bothering him at this point. He said that they come and go. There are no delusions evident. Attention and concentration are limited memory appears mostly unreliable but none were formally tested. He is alert and oriented x3. Insight and judgment are impaired, impulse control appears impaired. Vitals/I&O/Wt Last Vital Signs Temp 98.0 F 04/20/21 06:00 Pulse 85 04/20/21 06:00 Resp 17 04/20/21 06:00 BP 112/66 04/20/21 06:00 Pulse Ox 96 04/20/21 06:00 Data NPU : 04/15/21 16:30 04/15/21 16:30 A&P Assessment and plan (1) Diabetes mellitus, with long-term current use of insulin: Status: Acute (2) Essential hypertension: Status: Acute (3) Methamphetamine abuse: Status: Acute (4) DDD (degenerative disc disease), lumbosacral: Status: Acute (5) Depressive disorder: Status: Acute (6) Schizophrenia: Status: Acute (7) Substance abuse: Status: Acute (8) H/O heart valve replacement with bioprosthetic valve: Status: Acute (9) Diabetes: Status: Acute Qualifiers: Diabetes mellitus type: type 2 Diabetes mellitus complication status: with hyperglycemia (10) Hypertension: Status: Acute (11) Suicidal ideation: Status: Acute (12) Homicidal ideation: Status: Acute Additional A&P Information (1) Diabetes mellitus, with long-term current use of insulin: (2) Essential hypertension: (3) Methamphetamine abuse: (4) DDD (degenerative disc disease), lumbosacral: (5) Depressive disorder: (6) Schizophrenia: (7) Substance abuse: (8) H/O heart valve replacement with bioprosthetic valve: (9) Diabetes: (10) Hypertension: (11) Suicidal ideation: (12) Homicidal ideation: Additional A&P Information This is a 51-year-old white male with a long history of depression and addiction particularly methamphetamine which is often led to psychosis agitation who presents reporting that he has some depression and significant agitation with reports of suicidal and homicidal ideation with a plan to go and inflict as much harm and hurting to the larger segment of the community that he can.. 1. Continue current medication. Continue Invega 6 mg p.o. daily for 1 more days. Second Invega Sustena injection in 6 days. 2. Continue every 15 minute checks for safety. 3. Encourage individual, group and milieu therapies. 4. Encourage sober living treatment after discharge at the highest level of care to which he is willing to commit. 5. We will monitor for safety for himself in the community prior to discharge. Involuntary Hold Information 96 Hour Hold: 96 Hour Involuntary Admission: No Attestations NPU Medical Necessity Statement*: Inpatient hospitalization is medically necessary and the clinically appropriate intervention at this time. We will initiate medications and make changes as indicated Coding Level of Care Code Acute [employer] Tr[employer] Machine Tender for g Fwd Diagnoses Diabetes mellitus, with long-term current use of insulin E11.9; Z79.4 Essential hypertension I10 Methamphetamine abuse F15.10 DDD (degenerative disc disease), lumbosacral M51.37 Depressive disorder F32.9 Schizophrenia F20.9 Substance abuse F19.10 H/O heart valve replacement with bioprosthetic valve Z95.3 Diabetes E11.9 Diabetes mellitus type: type 2 Diabetes mellitus complication status: with hyperglycemia Hypertension I10 Suicidal ideation R45.851 Homicidal ideation R45.850
[2021-04-20 18:11] LABS: Glucose Point of Care 177 mg/dL (70-110)
[2021-04-20 18:11] LABS: Glucose Point of Care 189 mg/dL (70-110)
[2021-04-20 20:32] LABS: Glucose Point of Care 224 mg/dL (70-110)
[2021-04-20 20:44] VITALS: BP 114/76; PULSE 98; RESP 18; TEMP 36.7; O2SAT 97
[2021-04-21 06:00] VITALS: BP 120/80; PULSE 90; RESP 17; TEMP 36.7; O2SAT 97; BMI 34.9
[2021-04-21 06:49] LABS: Glucose Point of Care 184 mg/dL (70-110)
[2021-04-21] MEDS: lisinopril 20 mg Tablet PO (09:41)
[2021-04-21] MEDS: pantoprazole DR 40 mg Tablet PO (09:41)
[2021-04-21] MEDS: gabapentin 300 mg Capsule PO (09:41)
[2021-04-21] MEDS: paliperidone ER 6 mg Tablet PO (09:41)
[2021-04-21] MEDS: escitalopram 10 mg Tablet PO (09:41)
[2021-04-21] MEDS: insulin aspart 70/30 100 units/1 mL 20 UNIT SUBCUT (09:47)
--- NOTE | 2021-04-21 10:08 | W.PM.NPUDCS ---
Diagnoses at Discharge Discharge Diagnosis (1) Diabetes mellitus, with long-term current use of insulin: Status: Acute (2) Essential hypertension: Status: Acute (3) Methamphetamine abuse: Status: Acute (4) DDD (degenerative disc disease), lumbosacral: Status: Acute (5) Depressive disorder: Status: Acute (6) Schizophrenia: Status: Acute (7) Substance abuse: Status: Acute (8) H/O heart valve replacement with bioprosthetic valve: Status: Acute (9) Diabetes: Status: Acute Qualifiers: Diabetes mellitus type: type 2 Diabetes mellitus complication status: with hyperglycemia (10) Hypertension: Status: Acute (11) Suicidal ideation: Status: Acute (12) Homicidal ideation: Status: Acute Reason for Visit Reason for Visit: MHE Brief History: HPI NPU History of Present Illness Shree Hickman is a 51 year old male who presented to the emergency department with the following report: Chief Complaint: Psychiatric Symptoms Stated Complaint: MHE Time Seen by Provider: 04/15/21 16:41 History of Present Illness: HPI Narrative: 51-year-old male presents to the emergency room with complaint of auditory and visual hallucinations encouraging him to harm others. He denies use of alcohol or drugs. Is a history of diabetes mellitus hypertension he has previously been admitted 10 PM for similar complaints. He denies actually doing anything to harm himself or others at this point. MD complaint: altered mental status Onset (ago): hour(s) Duration: constant History of same: Yes Relieving factors: medication Exacerbating factors: none Context: not taking psychiatric medications Associated psychiatric symptoms: homicidal ideation, racing thoughts, auditory hallucinations and visual hallucinations Associated symptoms: Deny suicidal ideation Treatments prior to arrival: none. He was admitted to the neuropsychiatric unit for definitive treatment of those issues. Patient presents today for reevaluation and not a great historian due to his endorsed level frustration and feelings of despair. He continued to do it but he is not happy about his life and on multiple occasions reporting a desire to go out and find a place where the most people are to hurt, him and as many people as possible including himself. He reports that he is so tired of people and he does not care who gets her reporting he wants to go to the busiest place, a school a shopping area and to start hurting people because he is tired of palpable I treated him and he does mostly into the soon as possible. He cannot really articulate what is causing him being here. He reports he hasn't been taking his psychiatric medications he hasn't been taking his medical medications and insulin. We discussed the risk-benefit alternatives of possibly getting him on Invega or some other medication that has a shot version and he understood and agreed proceed as is documented in his note but in general he just said he did not care fine because he just wants to be if things continue like this. Per his 03/13/2021 was her healthcare inpatient psychiatric evaluation: History of Present Illness Shree Hickman is a 51 year old male who presented to the emergency department and was admitted to the [facility] unit with the following report: Shree Hickman is a 51 year old male who presented to the emergency department I believe with vomiting and diarrhea. Patient currently has received some Ativan and Dilaudid and goes from sleeping to waking with some agitation. He has been pulling at his NG, and IVs. Further history I cannot get from the patient currently. On review of records it is apparent he has had discitis and perhaps a decompression in the past. This occurred at [facility] in [place] after a transfer from our emergency department October 19, and again on November 04. Records will be requested so I can determine the exact hospital course. This is pertinent secondary to L5-S1 discitis seen on CT abdomen and pelvis. From my understanding when patient arrived he really was not complaining of any back pain, paresthesias or other lower extremity symptoms. In his current state, an MRI could not be entertained. The emergency department physician has alerted me that Dr. Ruiz has been notified of the case and will consult. I cannot confirm at this time if he got his blood culture through the emergency department prior to antibiotic administration. Psychiatric consult: Psychiatric consult was requested due to his significant psychiatric comorbidity. Patient presents today reporting that sometime ago he just stopped taking his medication a few months ago due to challenges he had that were fairly vague. He reports that in general he been doing well but he does acknowledge that he does better he is on his medication. He gives no rational reason why he had discontinued the medication and agreed that I could review his records and restart what he was on last as he could not recall himself. We discussed the risk-benefit alternatives of restarting his medication and appropriate dose and he understood agreed proceed as is documented in this note. He has a history of addiction with psychosis likely related to methamphetamine versus organic psychosis which is never been teased out. That he said multiple treatment has been with antidepressants and the only antipsychotic seem to be in proximity to his psychotic presentations suggesting the possibility that this is more related to drug-induced psychosis when the psychosis involved. Per his 07/12/2020 [facility] inpatient psychiatric evaluation: History of Present Illness Shree Hickman is a 50 year old male with past psychiatric history of depressive disorder, multiple past episodes of behavioral disturbances with suicidal ideation and homicidal ideation currently presenting with homicidal ideation toward his nephew who currently lives with him and his dad's house. Patient reports recently leaving [facility] 2 weeks ago and states that he has experienced worsening irritability, depression in the context of multiple stressors to include strained relationship with his nephew that lives in the same house. Patient continues to report depressive symptoms, low mood, decreased motivation and interest. He denies any current suicidal ideation. Patient does report stating that he has thoughts about hurting his nephew but does not provide specific details. Patient was placed on a 96-hour hold by police for this complaint of homicidal ideation. Patient does not provide details with regards to history of physical violence towards other individuals and communicates lack of concern about potential consequences of hurting his nephew. Patient does have longstanding history of substance abuse to include methamphetamine abuse but currently has UDS only positive for THC which the patient states he used a couple weeks ago after getting out of [facility]. Patient currently denies any perceptual disturbances, denies any hallucinations, denies any delusions. Patient has a past history of schizophrenia although he does not appear to demonstrate any disorganization of his thoughts, speech or behavior. Unclear per chart review with regards to influence of substances or temporal relationship of previous signs or symptoms with substance use. Patient reports occasional anxiety symptoms related ongoing stressors, denies any recent panic attacks. Patient is noncompliant not only with psychiatric medication but also with medication for his diabetes with past reported blood sugar in the 400s. Patient states that he has taken diabetes medication since his last hospitalization but is not specific with regards to his compliance and ongoing monitoring in the outpatient setting. Per above, patient also noncompliant with psychiatric medication as well as psychiatric follow-up. Patient reports last being hospitalized for psychiatric reasons at this facility in December 2019 at which time Abilify was started but patient states he did not take this medication after discharge. Patient reports living with his father and states that his nephew and nephew's also live in the same house causing significant strained relationship. Hospital Course Hospital Course He slowly acclimated to the individual, group and milieu therapies provided. He was treated with Invega 6 mg, Lexapro 10 mg and gabapentin 300 mg 3 times a day. He agreed to take Invega Sustenna and was given an injection of 234 mg on April 18. He is due for his second injection of 156 mg on Thursday, 24 April. he tolerated these doses and showed steady improvement during his stay.he had several outburst during the hospitalization that required Haldol Ativan and Benadryl. The last 1 was 3 days before discharge when he received bad news on a phone call. He said that he was turning over a new leaf and staying away from methamphetamine and going to be able to stay out of [facility]. He was excited because this Thanksgiving will be the first Thanksgiving he has been at home for quite some time. He was able to contract for safety outside hospital prior to discharge. During the hospitalization, patient had routine laboratory studies which were within normal limits except for few outliers. Additionally there was a general medical evaluation which was also within normal limits and revealed no new acute processes. Discharge Summary: At the time of discharge, lethality was denied and psychosis was resolving. Mood and anxiety were well managed. Patient endorsed a plan to follow-up with the aftercare recommendations of the treatment team. Patient was evaluated and deemed to be absent credible lethality, and had achieved the maximum benefit from an inpatient hospitalization, so was discharged. Involuntary Hold Information 96 Hour Hold: 96 Hour Involuntary Admission: No Mental Status Exam MSE Comments: This is an obese white male in hospital gown with limited grooming and eye contact with poor dentition. Psychomotor activity is normal. There were no abnormal movements. Speech is clear and coherent and of regular rate and rhythm. Mood described good, affect euthymic. Thought process organized. Thought content: He denies any suicidal ideation in the last 4 days. He does admit to auditory hallucinations but they are significantly decreased and are not bothering him at this point. He said that they come and go. There are no delusions evident. Attention and concentration are limited memory appears mostly unreliable but none were formally tested. He is alert and oriented x3. Insight and judgment are impaired, impulse control appears impaired. Discharge Data Data Completed and Pending: Labs from last 24 hours 04/21/21 04/20/21 04/20/21 06:30 19:33 16:31 POC Glucose 184 H 224 H 177 H 04/20/21 11:09 POC Glucose 189 H Vitals: Last Vital Signs Temp 98.0 F 04/21/21 06:00 Pulse 90 04/21/21 06:00 Resp 17 04/21/21 06:00 BP 120/80 04/21/21 06:00 Pulse Ox 97 04/21/21 06:00 Discharge Plan Discharge Patient Disposition: Home Condition: Stable Prescriptions: New gabapentin 300 mg Capsule 300 mg PO TID 30 Days Qty: 90 RF: 1 escitalopram oxalate 10 mg Tablet 10 mg PO DAILY 30 Days Qty: 30 RF: 1 Continued insulin asp prt-insulin aspart [Novolog Mix 70-30 U-100 Insuln] 100 unit/mL (70-30) solution 20 unit SUBCUT DAILY Qty: 10 RF: 2 Prinivil 20 mg tablet 20 mg PO DAILY RF: 0 Protonix 40 mg tablet,delayed release (DR/EC) 40 mg PO DAILY RF: 0 gabapentin 300 mg Capsule 300 mg PO TID Qty: 90 RF: 0 escitalopram oxalate 10 mg Tablet 10 mg PO DAILY Qty: 30 RF: 0 Discharge Orders: Discharge Order (Routine); Ordered 04/21/21 Ordered By: Ramírez Prasad Referrals: Nba Rascon MD [Physician] - 05/01/21 10:30 am Discharge Diet: Diabetic Discharge Activity: Resume usual activity Patient Instructions: Opioid Safety Discharge Attestations NPU Time Spent in Discharge Care*: greater than 30 min Specific Discharge Activities: Specific discharge activities: educating patient, discussing with case management rn/social workers/dc planners, documenting/other paperwork and evaluating patient/reviewing data Status at Discharge: Cognitive status at discharge: cognitively intact, Behavioral status at discharge: cooperative, Coding Level of Care Code Acute Chg DC note Diagnoses Diabetes mellitus, with long-term current use of insulin E11.9; Z79.4 Essential hypertension I10 Methamphetamine abuse F15.10 DDD (degenerative disc disease), lumbosacral M51.37 Depressive disorder F32.9 Schizophrenia F20.9 Substance abuse F19.10 H/O heart valve replacement with bioprosthetic valve Z95.3 Diabetes E11.9 Diabetes mellitus type: type 2 Diabetes mellitus complication status: with hyperglycemia Hypertension I10 Suicidal ideation R45.851 Homicidal ideation R45.850
[2021-04-21 10:18] VITALS: BP 128/78; PULSE 101; RESP 19; TEMP 36.7; O2SAT 97
== END 2021-04-21 10:30 | disposition home or self-care (01) | DRG 885 ==
LOC: ER 16:41 → NP 20:07
PROVIDERS: Admitting Provider Psychiatry & Neurology Psychiatry; Emergency Provider Family Medicine; Visit Provider Psychiatry & Neurology Psychiatry
DX: F20.9 Schizophrenia, unspecified (principal); R45.851 Suicidal ideations; R45.850 Homicidal ideations; E11.9 Type 2 diabetes mellitus without complications; I10 Essential (primary) hypertension; I25.10 Atherosclerotic heart disease of native coronary artery without angina pectoris; B19.20 Unspecified viral hepatitis C without hepatic coma; Z95.3 Presence of xenogenic heart valve; F17.210 Nicotine dependence, cigarettes, uncomplicated; F15.10 Other stimulant abuse, uncomplicated; F32.A Depression, unspecified; Z91.14 Patient's other noncompliance with medication regimen; Z63.8 Other specified problems related to primary support group; M51.37 Other intervertebral disc degeneration, lumbosacral region; Z79.4 Long term (current) use of insulin
CPT/HCPCS: 36415; 36416; 80053; 80306; 80307; 81001; 81003; 82962; 85025; 96372; 97165; 99285; J1200; J1630; J1815; J2060; J3486; Q0162

== ENCOUNTER → 2021-05-01 11:32 | Outpatient (BNVA) | payer BC, MEDICAID, SELFPAY | PROVIDERS: PCP Family Medicine Adult Medicine; Visit Provider Family Medicine Adult Medicine | DX: E11.9 Type 2 diabetes mellitus without complications (principal); Z79.4 Long term (current) use of insulin; I10 Essential (primary) hypertension | CPT/HCPCS: 80053; 83036 ==

== ENCOUNTER → 2021-06-13 10:07 | Outpatient (BNVA) | payer BC, MEDICAID, SELFPAY | PROVIDERS: PCP Family Medicine Adult Medicine; Visit Provider Family Medicine Adult Medicine | DX: I10 Essential (primary) hypertension (principal); R94.4 Abnormal results of kidney function studies; E11.9 Type 2 diabetes mellitus without complications; J06.9 Acute upper respiratory infection, unspecified; Z79.4 Long term (current) use of insulin | CPT/HCPCS: 80053; 83036 ==

== ENCOUNTER 2021-07-05 13:34 | Inpatient (IN) | payer BC, MEDICAID, SELFPAY ==
[2021-07-05] VITALS (36 sets, daily range): BP systolic 93–199; BP diastolic 61–137; PULSE 71–132; RESP 14–26; TEMP 36.6; O2SAT 93–100; BMI 38.9
[2021-07-05] MEDS: LORazepam 2 mg/mL INJ 1 mL IM (13:50)
--- NOTE | 2021-07-05 13:50 | ECG_ITS ---
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 Measurements Intervals Tracy Rate: 103 P: 62 FL: 167 QRS: 50 QRSD: 105 T: 79 QT: 331 QTc: 434 Interpretive Statements SINUS TACHYCARDIA POSSIBLE LEFT ATRIAL ENLARGEMENT [-0.1mV P-WAVE IN V1/V2] POSSIBLE ANTERIOR MYOCARDIAL INFARCTION , OF INDETERMINATE AGE [30 ms Q WAVE IN V3/V4, OR R < 0.2 mV IN V4] Compared to ECG 10/19/2020 22:08:42 Myocardial infarct finding now present Electronically Signed On 07-05-2021 17:38:10 CRM DYNAMICS DEVELOPER by Deny Denny M.D. [id number]
--- NOTE | 2021-07-05 13:51 | W.ED.PSYCHS ---
HPI - Psych General: Chief Complaint: ER Hold Stated Complaint: MHE Time Seen by Provider: 07/05/21 13:49 History of Present Illness: 51-year-old male presents to the emergency room in the custody of police. He is extremely agitated physically and verbally aggressive. Took multiple officers to continually redirect him and eventually were able to get into her room. There he began becoming combative agitated making threatening gestures and attempting to tear equipment off of the wall. MD complaint: altered mental status Onset (ago): hour(s) History of same: Yes Relieving factors: none Exacerbating factors: none Review of Systems General: Reports: ROS unobtainable due to mental status PFSH ED PFSH: Medical History Anxiety and depression Bowel obstruction CAD (coronary artery disease) Cellulitis and abscess of left leg Decreased calculated GFR Diabetes mellitus, with long-term current use of insulin GERD (gastroesophageal reflux disease) Hepatitis C History of bacterial endocarditis Homicidal ideation Hypertension Septic arthritis due to Streptococcus species Suicidal ideation URI with cough and congestion Surgical History History of aortic valve replacement with bioprosthetic valve History of heart valve replacement History of mitral valve replacement with bioprosthetic valve Family History Other Diabetes No significant family history Social History Alcohol intake: current Alcohol intake frequency: holidays/special occasions only Housing: Other Details: Homeless Current occupational status: unemployed Physical Exam Narrative: EXAM NARRATIVE: Initially minimal physical exam due to patient's aggressive behavior and agitation. All of the physical exam completed after patient had been sedated and intubated Const: ORIENTATION/CONSCIOUSNESS: Yes awake HENMT: COMMON NORMALS: normocephalic, atraumatic and hearing grossly normal bilaterally HEAD & SCALP: normocephalic and atraumatic Resp: COMMON NORMALS: normal respiratory effort, No retractions, No use of accessory muscles and clear to auscultation bilaterally AUSCULTATION: clear to auscultation bilaterally Cardio: COMMON NORMALS: regular rate, regular rhythm and No murmurs present (Cardio) RATE: regular rate RHYTHM: regular rhythm GI: COMMON NORMALS: Soft to palpation and No hepatosplenomegaly present AUSCULTATION: Yes normoactive bowel sounds PALPATION: Yes Soft to palpation, No Tenderness to palpation present (GI), No Guarding due to palpation present (GI) and Yes No hepatosplenomegaly present Extremity: COMMON NORMALS: normal to inspection, capillary refill normal, no clubbing, cyanosis or edema, no calf tenderness and no pedal edema OTHER: Prior to arrival patient had received abrasions bilaterally to his knuckles appear to be offense of wounds Face to Face: Restrn/Seclusion Events leading up to initiation: Verbalizing threat to self or others, Demonstrating self-destructive behavior (cutting, hitting landeros etc.) and Combative/Striking out at staff or others Evaluation of patient's immediate situation: Alert and oriented and Signs of psychological distress Patient reaction since intervention applied: Continued attempts/displays harmful behavior Recent labs reviewed: No (Due to patient's behavior we are not able to draw any laboratories studies ) Review of medications: Yes (Medications reviewed by myself and Dr. Domingo) Need for restraint or seclusion is: Continued Attending notified: Attending completed assessment Procedures Intubation Time out performed: Yes sedative: Etomidate Mg Given: 40 paralytic: Succinylcholine Mg Given: 130 Laryngoscope: fiber optic video scope Assist Device Used: fiber optic device ET Tube Size: 8.5 ET Tube Uncuffed: Yes Tube Secured Depth (cm): 22 Tube Secured Location: teeth (Gums) Tube Placement Confirmation: visualized tube passing through cords, equal breath sounds bilaterally and no breath sounds over epigastrium Patient Tolerated Procedure: well Intubation Complications: none Course Vital Signs: Vital signs: Vital Signs Temperature 97.8 F 07/06/21 04:01 Pulse Rate 64 07/06/21 06:00 Respiratory Rate 14 07/06/21 06:00 Blood Pressure 120/75 07/06/21 06:00 Pulse Oximetry 97 07/06/21 06:00 MDM - Psych Medical Decision Making Initially on patient arrival patient was very agitated there are 2 deputies from [facility] present. Patient was in the hallway very aggressive loud and threatening making comments to harm himself and others grabbing at equipment stating he was can blow everything up and kill everyone. Your volumes were extremely high and there were no exam rooms available when he arrived. We were able to clear in ER room and redirect the patient to go to the room. After some time was able to convince him to allow us to give him medications. We gave him 300 mg of IM ketamine. Dr. Domingo was present in the ER at this time unfortunately patient had a complete paradoxical reaction rather than becoming sedate he became more and more aggressive. He subsequently given 2 mg Ativan and then 20 mg of Geodon. He required physical restraints and on the hard restraint bed. Even after this patient continued to be extremely aggressive toward her was difficult to keep him on the hard restraint bed as he fought the restraints. Consulted with Dr. Domingo multiple times we did not feel at this point that more Geodon and ketamine would help, we are both concerned that would actually worsen the paradoxical reaction he was having. Dr. Domingo and I both concurred that the best approach for the patient's safety and wellbeing at this point was full sedation and placing on mechanical ventilation. The alternative would be he would continue to have these aggressive behaviors in all likelihood would harm himself or others. Patient underwent rapid sequence intubation with 40 mg of etomidate and 130 mg of succinylcholine. He was intubated without any complications. Up to this point we had not been able to get a blood pressure because of his behaviors. He was extremely hypertensive his propofol was titrated up and Versed was added as even at 60 on the propofol he was still demonstrating agitation. With the addition of Versed he was fully sedated. Blood pressure improved after the sedation in fact we were able to decrease his propofol after the Versed was added and he remained well sedated. Labs reviewed medical consult from the hospitalist team. Patient is showing signs of early rhabdomyolysis his ammonia level is elevated as well. He is on a 96-hour hold for his suicidal and homicidal expressions. The plan will be to leave him under full sedation overnight which will amount to about 10 to 12 hours and then extubate in the morning and admit to psychiatry floor once he is recovered from the sedation. Dr. Domingo and Dr. Gallegos both concur. Medical Records I reviewed the patient's medical records. Lab Data I reviewed the patient's lab results. : 07/05/21 14:35 07/05/21 14:[address] 07/05/21 15:03 IMPRESSION: 1. Sinus disease. 2. No acute intracranial finding. KUB X-Ray 07/05/21 17:10 IMPRESSION: Grossly unremarkable portable abdomen. Laboratory Results WBC 9.2 10^3/uL (4.0-10.0) 07/05/21 14:35 RBC 5.08 10^6/uL (4.1-5.3) 07/05/21 14:35 Hgb 15.0 g/dL (11.7-16.6) 07/05/21 14:35 Hct 46.1 % (42.0-52.0) 07/05/21 14:35 MCV 90.7 fl (80-94) 07/05/21 14:35 MCH 29.5 pg (28.0-34.0) 07/05/21 14:35 MCHC 32.5 g/dL (30.0-36.0) 07/05/21 14:35 RDW 12.9 % (12.1-15.1) 07/05/21 14:35 Plt Count 249 10^3/cmm (130-400) 07/05/21 14:35 MPV 10.2 fL (7.4-10.4) 07/05/21 14:35 Neut % (Auto) 63.5 % 07/05/21 14:35 Lymph % (Auto) 29.4 % 07/05/21 14:35 Beauregard % (Auto) 5.4 % 07/05/21 14:35 Eos % (Auto) 0.5 % 07/05/21 14:35 Baso % (Auto) 0.4 % 07/05/21 14:35 Neut # (Auto) 5.84 10^3/uL (1.8-7.7) 07/05/21 14:35 Lymph # (Auto) 2.7 10^3/uL (0.8-4.8) 07/05/21 14:35 Beauregard # (Auto) 0.5 10^3/uL (0.2-0.9) 07/05/21 14:35 Eos # (Auto) 0.1 10^3/uL (0.0-0.8) 07/05/21 14:35 Baso # (Auto) 0.0 10^3/uL (0.0-0.1) 07/05/21 14:35 Nucleated RBC % (auto) 0 % 07/05/21 14:35 Nucleated RBCs # 0.0 /100WBC 07/05/21 14:35 Specimen Type Arterial 07/05/21 15:43 Sample Site Rr 07/05/21 15:43 ABG pH 7.30 (7.35-7.45) L 07/05/21 15:43 ABG pCO2 43.7 mmHg (35-45) 07/05/21 15:43 ABG pO2 107.0 mmHg (80.0-100.0) H 07/05/21 15:43 ABG HCO3 21.5 mmol/L (22-26) L 07/05/21 15:43 ABG O2 Saturation 98 07/05/21 15:43 ABG Base Excess -4.9 mmol/L (-2.0-2.0) L 07/05/21 15:43 Evan Test Pos 07/05/21 15:43 A-a O2 Gradient 194.2 mmHg (5-10) H 07/05/21 15:43 Hematocrit 45.3 % (42-52) 07/05/21 15:43 Hgb O2 Saturation 96.3 % (95-100) 07/05/21 15:43 Carboxyhemoglobin 0.8 %THgb (0.4-20.1) 07/05/21 15:43 Methemoglobin 0.7 % (0.4-1.5) 07/05/21 15:43 Total Hemoglobin 14.8 g/dL (14-18) 07/05/21 15:43 Sodium 140.0 mmol/L (131-143) 07/05/21 15:43 Potassium 4.9 mmol/L (3.5-5.0) 07/05/21 15:43 Glucose Not Reportable 07/05/21 15:43 Ionized Calcium Not Reportable 07/05/21 15:43 O2 Delivery Device Vent 07/05/21 15:43 Vent Mode Cmv 07/05/21 15:43 FiO2 50.0 % 07/05/21 15:43 Specimen Drawn By Karo 07/05/21 15:43 Parts Identification Technician ID Glc 07/05/21 15:43 Crit Value Read Back [id number] 07/05/21 15:43 Blood Gas Notified Time 1559 07/05/21 15:43 Sodium 140 mmol/L (136-145) 07/05/21 14:35 Potassium 3.5 mmol/L (3.5-5.1) 07/05/21 14:35 Chloride 99 mmol/L (98-107) 07/05/21 14:35 Carbon Dioxide 17 mmol/L (22-29) L 07/05/21 14:35 Anion Gap 27.5 (5-19) H 07/05/21 14:35 BUN 15 mg/dL (6-20) 07/05/21 14:35 Creatinine 0.9 mg/dL (0.7-1.2) 07/05/21 14:35 GFR Calculation 89.7 mL/min (90-130) L 07/05/21 14:35 Glucose 291 mg/dL (65-115) H 07/05/21 14:35 POC Glucose 283 mg/dL (70-110) H 07/05/21 14:19 Calculated Osmolality 302 mOsm/kg (285-295) H 07/05/21 14:35 Calcium 10.1 mg/dL (8.5-10.5) 07/05/21 14:35 Total Bilirubin 0.3 mg/dL (0.15-1.2) 07/05/21 14:35 AST 18 U/L (0-40) 07/05/21 14:35 ALT 17 U/L (0-41) 07/05/21 14:35 Alkaline Phosphatase 95 IU/L (40-130) 07/05/21 14:35 Ammonia 84 umol/L (16-60) H 07/05/21 14:35 Creatine Kinase 357 U/L (39-308) H* 07/05/21 14:35 Total Protein 7.7 g/dL (6.6-8.7) 07/05/21 14:35 Albumin 5.0 g/dL (3.5-5.2) 07/05/21 14:35 Globulin 2.7 g/dL (1.3-4.6) 07/05/21 14:35 Triglycerides 467 mg/dL (0-150) H 07/05/21 14:35 Cholesterol 210 mg/dL (0-200) H 07/05/21 14:35 LDL Cholesterol Direct 114 mg/dL (0-100) H 07/05/21 14:35 LDL Cholesterol, Calc Not Reportable 07/05/21 14:35 HDL Cholesterol 30 mg/dL (60-100) L 07/05/21 14:35 LDL/HDL Ratio Not Reportable 07/05/21 14:35 Cholesterol/HDL Ratio 7.00 mg/dL (1.0-5.00) H 07/05/21 14:35 TSH 2.75 uIU/mL (0.27-4.20) 07/05/21 14:35 Urine Color Yellow (Yellow) 07/05/21 15:49 Urine Appearance Clear (CLEAR) 07/05/21 15:49 Urine pH 5 (5-7) 07/05/21 15:49 Ur Specific Termo 1.025 (1.005-1.030) 07/05/21 15:49 Urine Protein 3+ (Negative) H 07/05/21 15:49 Urine Glucose (UA) 1+ (Normal) H 07/05/21 15:49 Urine Ketones Negative (Negative) 07/05/21 15:49 Urine Blood 2+ (Negative) H 07/05/21 15:49 Urine Nitrate Negative (Negative) 07/05/21 15:49 Urine Bilirubin Neg (Negative) 07/05/21 15:49 Urine Urobilinogen Norm mg/dL (Negative) 07/05/21 15:49 Ur Leukocyte Esterase Negative (Negative) 07/05/21 15:49 Urine RBC Rare /hpf (0-2) 07/05/21 15:49 Urine WBC Rare /hpf (0-5) 07/05/21 15:49 Ur Squamous Epith Cells None /hpf (0-5) 07/05/21 15:49 Amorphous Sediment 1+ /hpf 07/05/21 15:49 Urine Bacteria None /hpf (NONE) 07/05/21 15:49 Hyaline Casts 0-4 /lpf H 07/05/21 15:49 Salicylates < 0.3 mg/dL (3-10) L 07/05/21 14:35 Urine Opiates Screen Negative ng/mL (Negative) 07/05/21 15:49 Acetaminophen < 5.0 ug/mL (10-30) L 07/05/21 14:35 Ur Barbiturates Screen Negative ng/mL (Negative) 07/05/21 15:49 Ur Phencyclidine Scrn Negative ng/mL (Negative) 07/05/21 15:49 Ur Amphetamines Screen Negative ng/mL (Negative) 07/05/21 15:49 U Benzodiazepines Scrn Negative ng/mL (Negative) 07/05/21 15:49 Urine Cocaine Screen Negative ng/mL (Negative) 07/05/21 15:49 U Marijuana (THC) Screen Positive ng/mL (Negative) H 07/05/21 15:49 Ethyl Alcohol < 10 mg/dL (0-10) 07/05/21 14:35 Urine Ethyl Alcohol Cancelled 07/05/21 15:42 Serum Ketones Negative (Negative) 07/05/21 14:35 Coronavirus 229E (PCR) Not detected (NOT DETECT) 07/05/21 15:54 Hepatitis A IgM Ab Non-reactive (Nonreactive) 07/05/21 14:35 Hep Bs Antigen Non-reactive (Nonreactive) 07/05/21 14:35 Hep B Core IgM Ab Non-reactive (Nonreactive) 07/05/21 14:35 Hepatitis C Antibody Non-reactive (Nonreactive) 07/05/21 14:35 HIV 1&2 Ab & HIV 1 Ag Non-reactive (Non-Reactiv) 07/05/21 14:35 HIV 1&2 Antibody Non-reactive (Non-Reactiv) 07/05/21 14:35 SARS-CoV-2 (PCR) Not detected (NOT DETECT) 07/05/21 15:54 Critical Care Time Critical Care Time: Critical Care Time: Yes Total Critical Care Time: 120 Attestation: The high probability of a clinically significant, sudden or life threatening deterioration of the patient's [psychiatric/cardiovascular system(s) required my full and direct attention, intervention and personal management. The critical care time is as shown. This time is in addition to time spent performing any reported procedures but includes the following: [x] Data and vital sign review and interpretation [x] Patient assessment, examination and intervention [x] Documentation [x] Medication orders and management Discharge Plan Discharge Patient Disposition: Admitted As Inpatient Admit Provider: Sandeep Hu Clinical Impression: Substance abuse, Schizophrenia, Methamphetamine abuse, Essential hypertension, Diabetes mellitus, with long-term current use of insulin, H/O heart valve replacement with bioprosthetic valve, Rhabdomyolysis Condition: Stable Coding Level of Care Code ED Drafter Mechanical for Chg Yuval
[2021-07-05] MEDS: ziprasidone 20 mg/mL SDV IM (14:03)
--- NOTE | 2021-07-05 14:14 | PC.NURSE ---
PATIENT TOO AGGRESSIVE TO PUT ON A EMPLOYEE BENEFITS COORDINATOR, OBTAIN BLOOD OR URINE. PATIENT GIVEN ATIVAN, GEODON AND KETAMINE FOR AGGRESSIVENESS. PATIENT PUT INTO VIOLENT RESTRAINTS. PATIENT STILL AGGRESSIVELY TRYING TO GET OUT OF RESTRAINTS.
[2021-07-05 14:23] LABS: Glucose Point of Care 283 mg/dL (70-110)
[2021-07-05 14:43] LABS: Basophils % 0.4 %; Eosinophils # 0.1 10^3/uL (0.0-0.8); Eosinophils % 0.5 %; Hematocrit 46.1 % (42.0-52.0); Lymphocytes # 2.7 10^3/uL (0.8-4.8); Lymphocytes % 29.4 %; Mean Corpuscular HGB Conc 32.5 g/dL (30.0-36.0); Mean Corpuscular Hemoglobin 29.5 pg (28.0-34.0); Mean Corpuscular Volume 90.7 fl (80-94); Mean Platelet Volume 10.2 fL (7.4-10.4); Monocytes # 0.5 10^3/uL (0.2-0.9); Monocytes % 5.4 %; Neutrophils # 5.84 10^3/uL (1.8-7.7); Neutrophils % 63.5 %; Nucleated Red Blood Cells % 0 %; Platelet Count 249 10^3/cmm (130-400); Red Blood Count 5.08 10^6/uL (4.1-5.3); Red Cell Distribution Width 12.9 % (12.1-15.1); White Blood Count 9.2 10^3/uL (4.0-10.0)
[2021-07-05] MEDS: succinylcholine 20 mg/mL SDV 10mL 130 MG IVP (14:55)
--- NOTE | 2021-07-05 14:57 | XR_ITS ---
WS: [id number] PORTABLE CHEST HISTORY: intubation COMPARISON: 09/30/2020 Endotracheal tube terminates 3.6 cm above the gabriel. Nasogastric tube in good position with tip exte nding into the stomach. Lung volumes are moderately decreased. Slight elevation of the RIGHT hemidiaphragm. Bilateral hazy op acifications. No areas of dense consolidation. No pleural effusion or pneumothorax. Cardiac size: Mildly enlarged cardiac silhouette. Prosthetic cardiac valve is present. Mediastinum/Aorta: Mild prominence and widening of the mediastinum due to positioning and adjacent aguirre zy opacifications. No osseous abnormality seen. XR/XR chest 1V portable [id number] IMPRESSION: 1. Endotracheal tube ends 3.6 cm above the gabriel. 2. Nasogastric tube in good position. 3. Decreased lung volumes with bilateral scattered hazy opacifications, consid er pneumonitis and developing pneumonia.
--- NOTE | 2021-07-05 15:02 | PC.NURSE ---
DR. CUELLO AND DR. ZHANG DECIDED TO SEDATE AND INTUBATE THE PATIENT HE WAS TOO AGGRESSIVE TOWARDS HIMSELF AND STAFF MEMBER. PATIENT GIVEN 40 MG OF ETOMIDATE AT 1454 AND 130 MG OF SUCCINYLCHOLINE AT 1455. INTUBATION FOLLOWED. PATIENT IS ON A PROPOFOL DRIP AT 50 MCG/KG/MIN.
--- NOTE | 2021-07-05 15:03 | CTR_ITS ---
PROCEDURE INFORMATION: Exam: CT Head Without Contrast Exam date and time: 07/05/2021 3:03 PM Age: 51 years old Clinical indication: Altered mental status/memory loss; Patient HX: AMS TECHNIQUE: Imaging protocol: Computed tomography of the head without contrast. Radiation optimization: All CT scans at this facility use at least one of these dose optimization techniques: automated exposure control; mA and/or kV adjustment per patient size (includes targeted exams where dose is matched to clinical indication); or iterative reconstruction. COMPARISON: No relevant prior studies available. RADIATION DOSE METRICS: Total DLP (mGy-cm): 1126.52 FINDINGS: Brain: Normal. No hemorrhage. Unremarkable white matter. No mass effect. Cerebral ventricles: No ventriculomegaly. Paranasal sinuses: There is mucosal thickening in the maxillary antra bilaterally and opacification of ethmoid air cells on both sides. Mastoid air cells: Visualized mastoid air cells are well aerated. Orbital cavity: There is deformity of the medial landeros of the orbits on both sides suggesting prior healed injuries. Bones/joints: Unremarkable. No acute fracture. Soft tissues: Unremarkable. CT/CT head wo con* [id number] IMPRESSION: 1. Sinus disease. 2. No acute intracranial finding.
[2021-07-05] MEDS: propofol 1,000 MG/100 ML INJ 33.3 MG IV ×4 (15:04→23:40)
--- NOTE | 2021-07-05 15:07 | PC.NURSE ---
70MG OF SUCC WAS WASTED AND WITNESSED BY [facility]
[2021-07-05] MEDS: propofol 10 mg/mL SDV 20 mL 100 MG IVP (15:11)
[2021-07-05 15:13] LABS: Ketone (Acetest) Serum Negative (Negative)
[2021-07-05 15:15] LABS: Alanine Aminotransferase 17 U/L (0-41); Alkaline Phosphatase 95 IU/L (40-130); Anion Gap 27.5 (5-19); Aspartate Amino Transferase 18 U/L (0-40); Blood Urea Nitrogen 15 mg/dL (6-20); Calcium 10.1 mg/dL (8.5-10.5); Carbon Dioxide 17 mmol/L (22-29); Chloride 99 mmol/L (98-107); Globulin 2.7 g/dL (1.3-4.6); Glomerular Filtration Rate 89.7 mL/min (90-130); Glucose 291 mg/dL (65-115); Osmolality Calculated 302 mOsm/kg (285-295); Potassium 3.5 mmol/L (3.5-5.1); Sodium 140 mmol/L (136-145); Total Bilirubin 0.3 mg/dL (0.15-1.2); Total Protein 7.7 g/dL (6.6-8.7)
--- NOTE | 2021-07-05 15:32 | PC.NURSE ---
PATIENT ON CONTINUOUS BEDSIDE CARDIAC, BP AND O2 MONITOR.
[2021-07-05 15:58] LABS: ABG PCO2 43.7 mmHg (35-45); HCO3 ABG 21.5 mmol/L (22-26)
[2021-07-05 15:58] LABS: Creatine Phosphokinase 357 U/L (39-308)
[2021-07-05 15:59] LABS: Base Excess ABG -4.9 mmol/L (-2.0-2.0); Blood Gas Allen Test POS; Blood Gas Drawn By CONGI; Blood Gas Operator Identificat GLC; Blood Gas Vent Mode CMV; Oxygen Device VENT; Oxygen Saturation ABG 98; Potassium Level - ABG 4.9 mmol/L (3.5-5.0)
[2021-07-05 16:00] LABS: Ammonia 84 umol/L (16-60)
[2021-07-05 16:00] LABS: Alveolar-Arterial Oxygen Gradi 194.2 mmHg (5-10); Arterial Blood Gas Hematocrit 45.3 % (42-52); Blood Gas CCRB By 1559; Blood Gas CCRB Time 1559; Blood Gas Sample Site RR; Blood Gas Sample Type ARTERIAL
[2021-07-05 16:01] LABS: Carboxyhemoglobin 0.8 %THgb (0.4-20.1); HGB O2 Sat 96.3 % (95-100); Methemoglobin 0.7 % (0.4-1.5); Total Hemoglobin 14.8 g/dL (14-18)
[2021-07-05 16:09] LABS: Add Urine Microscopic? YES; Bilirubin Urine Neg (Negative); Blood Urine 2+ (Negative); Glucose Urine UA 1+ (Normal); Ketones Urine Negative (Negative); Leukocyte Esterase Urine Negative (Negative); Nitrate Urine Negative (Negative); Protein Urine 3+ (Negative); Specific Gravity, Urine 1.025 (1.005-1.030); Urine Appearance Clear (CLEAR); Urine Color Yellow (Yellow); Urobilinogen Urine Norm (Negative); pH Urine 5 (5-7)
[2021-07-05 16:16] LABS: Amphetamines Screen Urine Negative (Negative); Barbiturates Screen Urine Negative (Negative); Benzodiazepines Screen Urine Negative (Negative); Cocaine Screen Urine Negative (Negative); Opiate Screen Urine Negative (Negative); PCP Screen Urine Negative (Negative); THC Screen Urine Positive (Negative)
[2021-07-05 16:52] LABS: RBC Urine RARE /hpf (0-2); WBC Urine RARE /hpf (0-5)
--- NOTE | 2021-07-05 16:52 | PM.HP ---
Providers/Chief Complaint Primary Care Provider: Nba Rascon MD Chief Complaint: MHE History of Present Illness Shree Hickman is a 51 year old male with a past medical history of aortic valve replacement, history of intermittent explosive disorder, anxiety, depression, type 2 diabetes mellitus, hypertension hyperlipidemia, CAD, history of drug abuse who presents to [facility] due to sudden onset agitation. Currently patient is intubated, sedated on mechanical ventilation due to agitation most the history was obtained from ER physician, nursing staff and patient's father. Patient's father tells me that has significant behavioral disorders, anxiety depression, drug abuse, because of the inclement weather, has not been able to get out, he tells me all of a sudden he got angry today, he got out of control, the police were called out to his house. He tells me this is nothing new. According to ER physician, patient was brought in by police, due to agitation, he continued to have episodes of agitation but despite high doses of ketamine, will also receive lorazepam, Zyprexa. Due to persistent increased agitation, concerns for drug intoxication, patient was intubated, placed on mechanical ventilation Review of Systems General: Reports: ROS unobtainable due to endotracheal tube and ROS unobtainable due to medical condition Medications/Allergies Home Medications Medication Instructions Recorded Confirmed Last Taken Type buspirone 10 mg tablet 10 mg PO TID #90 tab 05/16/21 06/13/21 Unknown Rx gabapentin 600 mg tablet 600 mg PO TID #90 tab 05/16/21 06/13/21 Unknown Rx insulin aspar prt-insulin aspart 20 unit (0.2 mL) SUBCUT DAILY #10 05/16/21 06/13/21 Unknown Rx 100 unit/mL (70-30) subcutaneous ml soln (Novolog Mix 70-30 U-100 Insuln) lisinopril 20 mg tablet (Prinivil) 20 mg PO DAILY #30 tab 05/16/21 06/13/21 Unknown Rx pantoprazole 40 mg tablet,delayed 40 mg PO DAILY #30 tab 05/16/21 06/13/21 Unknown Rx release (Protonix) dextromethorphan-guaifenesin 20 5 ml PO Q6H PRN #120 ml 06/13/21 06/13/21 Unknown Rx mg-400 mg/5 mL oral liquid fluticasone propionate 50 1 spray INTRANASAL BID PRN #16 g 06/13/21 06/13/21 Unknown Rx mcg/actuation nasal spray,suspension Allergies Allergy/AdvReac Type Severity Reaction Status Date / Time ketamine Allergy Severe ADR-Agitate Verified 07/05/21 15:13 d PFSH Acute PFSH: Medical History Anxiety and depression Bowel obstruction CAD (coronary artery disease) Cellulitis and abscess of left leg Decreased calculated GFR Diabetes mellitus, with long-term current use of insulin GERD (gastroesophageal reflux disease) Hepatitis C History of bacterial endocarditis Homicidal ideation Hypertension Septic arthritis due to Streptococcus species Suicidal ideation URI with cough and congestion Surgical History History of aortic valve replacement with bioprosthetic valve History of heart valve replacement History of mitral valve replacement with bioprosthetic valve Family History Other Diabetes No significant family history Social History Alcohol intake: current Alcohol intake frequency: holidays/special occasions only Housing: Other Details: Homeless Current occupational status: unemployed Vitals/I&O/Wt Last Vital Signs Pulse 114 H 07/05/21 16:13 Resp 24 H 07/05/21 16:13 BP 93/61 07/05/21 16:13 Pulse Ox 93 07/05/21 16:13 07/05/21 07/05/21 07/05/21 06:59 14:59 22:59 Intake Total 44.178 / 44.178 Balance 44.178 / 44.178 Physical Exam Const: COMMON NORMALS: no acute distress HENMT: COMMON NORMALS: normocephalic HEAD & SCALP: normocephalic Eye: OTHER: minimally reactive to light intubated on a ventilator Resp: COMMON NORMALS: normal respiratory effort, No retractions, No use of accessory muscles and clear to auscultation bilaterally AUSCULTATION: clear to auscultation bilaterally Cardio: COMMON NORMALS: regular rate, regular rhythm, S1 normal heart sound present and S2 normal heart sound present RATE: regular rate RHYTHM: regular rhythm HEART SOUNDS: S1 normal heart sound present and S2 normal heart sound present GI: COMMON NORMALS: Normal to inspection, nondistended, normoactive bowel sounds present, Soft to palpation, non-tender, No hepatosplenomegaly present, no masses and no bruits PALPATION: Yes Soft to palpation and Yes No hepatosplenomegaly present Extremity: COMMON NORMALS: capillary refill normal, no clubbing, cyanosis or edema, no calf tenderness and no pedal edema Neuro: COMMON NORMALS: negative for patient oriented x3 Skin: NARRATIVE SKIN EXAM: tatoo: 100%[place] on abdomen Urinary Catheter Management: Rowe: Cath Placed During This Visit: yes Urinary Catheter Date of Insertion: 07/05/21 Urinary Catheter Time of Insertion: 15:55 Data : 07/05/21 14:35 07/05/21 14:35 Micro: Microbiology 07/05/21 15:18 Gram Stain - Final Sputum - Expectorated Sputum A&P Assessment and plan (1) Rhabdomyolysis: Status: Acute (2) Diabetes mellitus, with long-term current use of insulin: Status: Acute (3) Essential hypertension: Status: Acute (4) Methamphetamine abuse: Status: Acute (5) Schizophrenia: Status: Acute (6) H/O heart valve replacement with bioprosthetic valve: Status: Acute (7) Hypertension: Status: Acute (8) Anxiety and depression: Status: Acute (9) CAD (coronary artery disease): Status: Acute (10) Agitated depression: Status: Acute Plan Agitation, psychosis, drug intoxication -Intubated for airway protection -We will place a mechanical ventilation -Propofol, Versed for sedation -Zosyn for aspiration pneumonia prophylaxis -Sputum cultures, blood cultures, -CT head pending -Alcohol, ethanol, alcohol levels, salicylate -Protonix for GI prophylaxis -Lovenox for DVT prophylaxis -Full code Type 2 diabetes mellitus, low-dose sliding scale Metabolic acidosis, likely secondary to drug intoxication, agitation, ketones negative, continue to monitor CAD History of back pain, possible discitis, blood culture showed contamination Hepatitis C, acute hep testing, HIV History of aortic valve replacement Abdomen a bit distended, decreased bowel sounds, will do a KUB Attestations Medical Necessity Statement*: Patient requires hospitalization due to agitation, methamphetamine abuse, withdrawal, requiring hospitalization Coding Level of Care Code Acute Provider Service Representative for Janis Barakat Diagnoses Rhabdomyolysis M62.82 Diabetes mellitus, with long-term current use of insulin E11.9; Z79.4 Essential hypertension I10 Methamphetamine abuse F15.10 Schizophrenia F20.9 H/O heart valve replacement with bioprosthetic valve Z95.3 Hypertension I10 Anxiety and depression F41.9; F32.A CAD (coronary artery disease) I25.10 Agitated depression F32.2
[2021-07-05 16:53] LABS: Add Urine Culture? No; Amorphous Sediment Urine 1+ /hpf; Hyaline Casts Urine 0-4 /lpf
--- NOTE | 2021-07-05 17:10 | XRR_ITS ---
PROCEDURE INFORMATION: Exam: XR Abdomen Exam date and time: 07/05/2021 5:10 PM Age: 51 years old Clinical indication: Abdominal pain TECHNIQUE: Imaging protocol: XR of the abdomen. Views: Frontal supine view of the abdomen. 1 View. COMPARISON: CR XR abdomen 1V* [id number] 03/13/2021 9:25 AM FINDINGS: Limitations: Study is limited by portable technique. Gastrointestinal tract: Bowel gas pattern is grossly unremarkable. Organs: No urinary tract calculi are demonstrated. Bones/joints: There is mild scoliosis of the lumbar spine concave to the left. Soft tissues: Small calcific density seen projecting medial to the right kidney on this exam is probably due to soft tissue calcification demonstrated in the anterior abdominal wall on prior CT scan. XR/XR KUB portable [id number] IMPRESSION: Grossly unremarkable portable abdomen.
[2021-07-05 17:26] LABS: Cholesterol 210 mg/dL (0-200); HDL Cholesterol 30 mg/dL (60-100); Thyroid Stimulating Hormone 2.75 uIU/mL (0.27-4.20); Triglycerides 467 mg/dL (0-150)
[2021-07-05 17:47] LABS: Adenovirus Not Detected (NOT DETECT); Chlamydia Pneumoniae Not Detected (NOT DETECT); Coronavirus 229E,HKU1,NL63,OC4 Not Detected (NOT DETECT); Human Metapneumovirus Not Detected (NOT DETECT); Human Rhinovirus/Enterovirus Not Detected (NOT DETECT); Influenza A Not Detected (NOT DETECT); Influenza A H1 Not Detected (NOT DETECT); Influenza A H1-2009 Not Detected (NOT DETECT); Influenza A H3 Not Detected (NOT DETECT); Influenza B Not Detected (NOT DETECT); Mycoplasma Pneumoniae Not Detected (NOT DETECT); Parainfluenza Virus Type 1 Not Detected (NOT DETECT); Parainfluenza Virus Type 2 Not Detected (NOT DETECT); Parainfluenza Virus Type 3 Not Detected (NOT DETECT); Parainfluenza Virus Type 4 Not Detected (NOT DETECT); Respiratory Syncytial Virus A Not Detected (NOT DETECT); Respiratory Syncytial Virus B Not Detected (NOT DETECT); SARS-COV-2 Not Detected (NOT DETECT)
[2021-07-05] MEDS: pantoprazole 40 mg SDV IVP (17:47)
[2021-07-05] MEDS: sodium chloride 0.9% 1,000 ML 999 ML IV (17:48)
[2021-07-05] MEDS: sodium chlor 0.9% + KCl 20 mEq 20 MEQ/1,000 ML BAG 125 MEQ IV (17:48)
[2021-07-05 17:50] LABS: Acetaminophen < 5.0 ug/mL (10-30); Alcohol Level < 10 mg/dL (0-10); Salicylate < 0.3 mg/dL (3-10)
[2021-07-05 17:59] LABS: LDL Cholesterol Direct 114 mg/dL (0-100)
[2021-07-05 18:07] LABS: HIV 1 & 2 Antibody Non-Reactive (Non-Reactiv); HIV 1 & 2 Antigen Non-Reactive (Non-Reactiv)
[2021-07-05 18:08] LABS: Glucose Point of Care 181 mg/dL (70-110)
[2021-07-05 18:08] LABS: Estmated Average Glucose 209; Hemoglobin A1C 8.9 % (4.0-6.0)
[2021-07-05 18:14] LABS: Lactic Sepsis W/Reflex 3.2 mmol/L (0.5-2.2)
[2021-07-05 18:16] LABS: Hepatitis A Antibody IgM Non-Reactive (Nonreactive); Hepatitis B Core IgM Non-Reactive (Nonreactive); Hepatitis B Surface Antigen Non-Reactive (Nonreactive); Hepatitis C Virus Antibody Non-Reactive (Nonreactive)
[2021-07-05] MEDS: dextrose 5%-sod chloride 0.9% 1,000 ML 75 ML IV (18:23)
[2021-07-05] MEDS: enoxaparin 40 mg/0.4 mL Syringe SUBCUT (18:23)
--- NOTE | 2021-07-05 18:30 | PC.NURSE ---
PATIENT HAS 2 POCKET KNIVES WITH SECURITY.
--- NOTE | 2021-07-05 19:00 | PC.NURSE ---
PATIENT ARRIVED IN THE ER WITH THE POLICE HOSTILE WITH FLIGHT OF IDEAS AFTER AN EVENT THAT HAPPENED AT HIS SISTER'S HOUSE. THE PATIENT WAS BABYSITTING HIS NIECE AND HIS NEPHEW WHEN HE BECAME ANGRY AND THROWING ITEMS AROUND THE HOUSE. POLICE WERE CALLED AND THE PATIENT WAS BROUGHT TO THE ER. THERE WERE NO CLEAN EMPTY ROOMS. A PATIENT WAS DISCHARGED AND THE ROOM WAS CLEARED OF ALL UNSAFE ITEMS. PATIENT WAS THEN TAKEN TO ROOM 14 BY MD ZHANG, LAW ENFORCEMENT, SECURITY, AND SAFE TRAINING GUIDE. RN CHECKED ON PATIENTS IN ROOM'S 11 AND 15 DURING THIS TIME. WHEN RN ARRIVED TO ROOM, PATIENT WAS BEING HELD DOWN BY JO ARMENDARIZS, MD ZHANG, AND SAFE TRAINING GUIDE. PATIENT HAD ALREADY BEEN GIVEN 200 OF KETAMINE AND 4 OF ATIVAN. PATIENT STILL THRASHING AND SCREAMING DURING THIS TIME. MD ZHANG ASKED THAT THE VIOLENT RESTRAINT BED BE BROUGHT TO THE ROOM AND 20 OF GEODON BE GIVEN. PATIENT WAS PLACED IN VIOLENT RESTRAINT BED AND 20 OF GEODON WAS GIVEN. VITAL SIGNS WERE THEN OBTAINED. PATIENT GIVEN 1-ON-1 SITTER, AND STILL VIOLENTLY TRYING TO GET OUT OF RESTRAINTS WHILE SCREAMING. MD ZHANG (ER) AND MD CUELLO (NPU) WERE THEN DISCUSSING OPTIONS FOR THE PATIENT MOVING FORWARD. THE PATIENT WAS UNABLE TO BE CALMED WITH CHEMICAL RESTRAINT AND PHYSICAL RESTRAINT. MD CUELLO SUGGESTED THAT THE PATIENT BE PUT ON A PROPOFOL DRIP AND INTUBATED. RN ASKED FOR ANOTHER OPTION TO BE GIVEN. MD ZHANG ASKED IF AN IV COULD BE OBTAINED FOR BLOOD WORK AND POTENTIAL SEDATION. RN STATED WITH HELP IT IS POSSIBLE. RN OBTAINED TOOLS NEEDED FOR IV INSERTION. PATIENT WAS HELD DOWN BY ZAIN ARMENDARIZ, TRES, AND SAFE TRAINING GUIDE. 18 GAUGE IV WAS OBTAINED IN THE LEFT AC. DURING THIS TIME OF IV INSERTION THE PATIENT HAD FALLEN ASLEEP AND WAS SNORING. BLOOD WORK WAS OBTAINED AND SENT TO LAB. RN ASKED THAT OTHER OPTIONS BE CONSIDERED MOVING FORWARD WITH THIS PATIENT SINCE HE FELL ASLEEP ON HIS OWN DURING THE TIME OF IV INSERTION. DR. CUELLO STILL SUGGESTED THAT HE BE PLACED ON PROPOFOL DRIP AND INTUBATED. PATIENT WAS OBSERVED FOR A SHORT AMOUNT OF TIME. PATIENT GOT ANGRY AGAIN, BEGAN THRASHING AND YELLING. DR. ZHANG ASKED THAT MEDICATIONS BE OBTAINED AND FOR RT TO BE CALLED IN PREPARATION FOR INTUBATION. RT SET UP THEIR EQUIPMENT IN THE ROOM, STANFORD RUFF OBTAINED RSI KIT AND BEGAN DRAWING UP MEDS. DURING THIS TIME PATIENT FELL ASLEEP AGAIN AND BEGAN SNORING. RN ASKED DR. ZHANG AGAIN IF WE COULD OBSERVE THE PATIENT LONGER BEFORE INTUBATING, DR ZHANG STATED TO RN, DR. CUELLO SUGGESTS THAT THIS IS THE BEST OPTION AND I DON'T DISAGREE WITH HIM. PATIENT BEGAN SCREAMING AND PULLING ON RESTRAINTS AGAIN. TEAM PREPARED FOR INTUBATION. PATIENT GIVEN 40 MG OF ETOMIDATE AND 130 MG OF SUCC IV IN PREPARATION FOR INTUBATION. ONCE PATIENT WAS SEDATED AND PARALYZE INTUBATION WAS OBTAINED. PATIENT WAS THEN PLACED ON A PROPOFOL DRIP AT 50 MCG/KG/MIN. (PATIENT WEIGHT 111 KG) PATIENT STILL TRYING TO PULL FROM RESTRAINTS. MD ZHANG GAVE PATIENT 100MG OF PROPOFOL IV PUSH. AND PATIENT PLACED ON 60MCG/KG/MIN ON PROPOFOL DRIP PER MD ZHANG. PATIENT HAD A LOT OF SECRETIONS COMING FROM INTUBATION TUBE, OG WAS PLACED INTO PATIENT STOMACH AND ATTACHED TO LOW INTERMITTENT SUCTION. PATIENT WAS SETTLED BY RT AND RN AND TECH ENTERED ROOM, PATIENT WAS THEN STRIPPED OF PERSONAL CLOTHING AND PLACED IN PSYCH CLOTHING. CHAPMAN WAS PLACED. PATIENT THEN PUT ON VERSED DRIP AT 3 MG/HR PER MD ZHANG TO KEEP PATIENT SEDATED. PATIENT NOW HAVING SMALL NEUROLOGICAL MOVEMENTS. PATIENT CONTINUOUSLY MONITORED OVER THE TIME OF THIS EVENT BY MULTIPLE RN?S, , RT AND 1-ON-1 SITTER. MONITORING CONTINUED Q15 MINUTES AFTER PATIENT STABILIZED. REPORT GIVEN TO STANFORD VICTOR FOR NEXT SHIFT AT 1900.
[2021-07-05 19:42] LABS: Reflex Lactate Order REFLEX LACTIC ORDERD
[2021-07-05 20:51] LABS: Glucose Point of Care 145 mg/dL (70-110)
[2021-07-05] MEDS: insulin lispro 100 unit/1 mL SUBCUT (20:53)
[2021-07-05] MEDS: piperacillin-tazobactam 3.375 GM in sodium chloride 0.9% (plus) 50 ML IV (20:53)
[2021-07-05 21:36] LABS: Lactic Acid level (Lactate) 2.1 mmol/L (0.5-2.2)
--- NOTE | 2021-07-05 22:11 | PC.NURSE ---
Family Update Father, Yandel Hickman, called and received update on patient status. Father verbalized understanding and stated no further questions.
[2021-07-06] VITALS (57 sets, daily range): BP systolic 114–170; BP diastolic 75–116; PULSE 63–77; RESP 14–40; TEMP 36.4–37.7; O2SAT 91–100; BMI 38.9
--- NOTE | 2021-07-06 01:11 | PC.NURSE ---
Addendum entered by Shantel Benton RN 07/06/21 01:17: Time of note 2014 Original Note: On Unit Patient arrived on unit via stretcher. Patient thrashing arms and legs wildly in bed, attempting to pull ET tube out of mouth while being bagged by RT. Attempts made to calm patient with verbal deescalation unsuccessful. Wrist restraints applied to bilateral wrists. Propofol running at 50 mcg/kg/min and versed at 3 mg/hr. ER nurse stated that versed was ordered to stay at 3 mg/hr and not to titrate further. Dr. Light contacted and alerted of patient behavior. Orders received to titrate versed per protocol.
--- NOTE | 2021-07-06 01:18 | PC.NURSE ---
Zosyn Zosyn dose due at 1700, patient arrived on unit at 2014. First zosyn dose administration started at 2052 following getting patient settled. Further Zosyn administrations retimed for proper administration.
[2021-07-06] MEDS: dexmedeTOMIDine 0.9 % NaCL 400 MCG/100 ML PREMIX IV (02:20)
--- NOTE | 2021-07-06 02:25 | PC.NURSE ---
Agitation Patient began thrashing arms and legs in a very agitated manner with a RR in the 30s. Dr. Light at bedside, verbal order received for precedex to titrate per protocol. Versed titrated per MAR, precedex initiated. Upon medication administration, patient began to calm and RR slowed down to 18. All other vitals stable.
[2021-07-06] MEDS: sodium chlor 0.9% + KCl 20 mEq 20 MEQ/1,000 ML BAG 125 MEQ IV ×2 (02:30→11:16)
[2021-07-06] MEDS: propofol 1,000 MG/100 ML INJ 33.3 MG IV ×6 (02:46→21:39)
[2021-07-06] MEDS: piperacillin-tazobactam 3.375 GM in sodium chloride 0.9% (plus) 50 ML IV ×3 (04:30→20:12)
[2021-07-06 04:58] LABS: ABG PCO2 40.6 mmHg (35-45); ABG PH Result 7.36 (7.35-7.45); Arterial Blood Gas Hematocrit 43.9 % (42-52); Base Excess ABG -2.2 mmol/L (-2.0-2.0); Blood Gas Allen Test Pos; Blood Gas Operator Identificat JB; Blood Gas Sample Site Radial, right; Blood Gas Sample Type Arterial; HCO3 ABG 23.1 mmol/L (22-26); Oxygen Device VENT; PO2 ABG 79.3 mmHg (80.0-100.0)
[2021-07-06 04:59] LABS: Blood Gas Tidal Volume 0.55
--- NOTE | 2021-07-06 05:05 | XRR_ITS ---
PROCEDURE INFORMATION: Exam: XR Chest Exam date and time: 07/06/2021 5:05 AM Age: 51 years old Clinical indication: Shortness of breath; Prior surgery; Surgery type: Heart valve. ; Patient HX: F/u for intubation. ; Additional info: SOB TECHNIQUE: Imaging protocol: XR of the chest. Views: 1 view. COMPARISON: CR XR chest 1V portable [id number] 07/05/2021 3:25 PM FINDINGS: Tubes, catheters and devices: An endotracheal tube is been placed with its tip 4.4 cm from the gabriel. A nasogastric tube is present with its tip coiled in the proximal stomach. EKG leads overlie the chest. Lungs: The there are mildly increased peribronchial markings and perihilar opacities present, findings that could represent mild bilateral bronchitis and or pneumonitis. Pleural spaces: Unremarkable. No pleural effusion. No pneumothorax. Heart/Mediastinum: Unremarkable. No cardiomegaly. Bones/joints: Unremarkable. XR/XR chest 1V portable [id number] IMPRESSION: 1. Endotracheal tube tip 4.4 cm from the gabriel. 2. Nasogastric tube tip coiled in proximal stomach 3. Mildly increased perihilar markings present, findings could represent mild bilateral bronchitis and or pneumonitis.
[2021-07-06] MEDS: dexmedeTOMIDine 0.9 % NaCL 400 MCG/100 ML PREMIX 20.32 MCG IV ×3 (05:26→15:40)
[2021-07-06 06:26] LABS: Basophils % 0.1 %; Eosinophils % 0.6 %; Hematocrit 38.8 % (42.0-52.0); Hemoglobin 13.2 g/dL (11.7-16.6); Lymphocytes # 1.6 10^3/uL (0.8-4.8); Lymphocytes % 22.7 %; Mean Corpuscular Hemoglobin 30.3 pg (28.0-34.0); Mean Corpuscular Volume 89.2 fl (80-94); Mean Platelet Volume 11.3 fL (7.4-10.4); Monocytes # 0.4 10^3/uL (0.2-0.9); Neutrophils # 4.82 10^3/uL (1.8-7.7); Neutrophils % 70.2 %; Nucleated Red Blood Cells % 0 %; Platelet Count 120 10^3/cmm (130-400); Red Blood Count 4.35 10^6/uL (4.1-5.3); Red Cell Distribution Width 13.2 % (12.1-15.1); White Blood Count 6.9 10^3/uL (4.0-10.0)
[2021-07-06 06:39] LABS: INR 1.03 (0.8-1.2)
[2021-07-06 06:50] LABS: Alanine Aminotransferase 14 U/L (0-41); Albumin Level 3.8 g/dL (3.5-5.2); Alkaline Phosphatase 80 IU/L (40-130); Aspartate Amino Transferase 27 U/L (0-40); Blood Urea Nitrogen 14 mg/dL (6-20); C Reactive Protein 7.7 mg/L (0.0-4.9); Calcium 7.9 mg/dL (8.5-10.5); Carbon Dioxide 19 mmol/L (22-29); Chloride 107 mmol/L (98-107); Globulin 2.2 g/dL (1.3-4.6); Glomerular Filtration Rate 119.9 mL/min (90-130); Glucose 237 mg/dL (65-115); Magnesium 1.9 mg/dL (1.7-2.3); Osmolality Calculated 296 mOsm/kg (285-295); Phosphorus 2.9 mg/dL (2.5-4.5); Sodium 139 mmol/L (136-145); Total Bilirubin 0.2 mg/dL (0.15-1.2)
[2021-07-06 07:31] LABS: NT Pro B Type Natriuretic Pept 107 pg/mL (0-125)
[2021-07-06] MEDS: dextrose 5%-sod chloride 0.9% 1,000 ML 75 ML IV ×2 (08:03→21:30)
[2021-07-06 08:05] LABS: Glucose Point of Care 212 mg/dL (70-110)
[2021-07-06 08:14] LABS: Anion Gap 17.3 (5-19); Creatine Phosphokinase 1589 U/L (39-308); Potassium 4.3 mmol/L (3.5-5.1)
[2021-07-06 08:14] LABS: Lactate (Lactic Acid level) 2.4 mmol/L (0.5-2.2)
[2021-07-06] MEDS: insulin lispro 100 unit/1 mL SUBCUT ×3 (08:14→19:26)
[2021-07-06 10:29] LABS: Slide Review Slide Review Perform
[2021-07-06] MEDS: OLANZapine 10 mg TABLET PO ×2 (11:39→23:20)
[2021-07-06 11:57] LABS: Glucose Point of Care 162 mg/dL (70-110)
--- NOTE | 2021-07-06 13:56 | P.PN_ITS ---
Subjective Subjective: Interval history: Patient was seen this morning, intubated, sedated, mechanical ventilation on 30% FiO2, afebrile overnight, normotensive, plans on extubation later on this afternoon Vitals/I&O/Wt Last Vital Signs Temp 98.8 F 07/06/21 11:01 Pulse 67 07/06/21 11:01 Resp 16 07/06/21 13:39 BP 119/77 07/06/21 11:01 Pulse Ox 94 07/06/21 13:39 07/05/21 07/06/21 07/06/21 22:59 06:59 14:59 Intake Total 207.165 / 291.830 2565.957 / 6259.590 2148.652 / 2405.652 Output Total 1125 / 1125 Balance 207.165 / 207.165 275.957 / 516.779 5975.652 / 2405.652 Weight last 48 hrs Weight 116.12 kg Weight 116.12 kg Physical Exam Const: COMMON NORMALS: no acute distress OTHER: Intubated, sedated Resp: COMMON NORMALS: normal respiratory effort, No retractions, No use of accessory muscles and clear to auscultation bilaterally AUSCULTATION: clear to auscultation bilaterally Cardio: COMMON NORMALS: regular rate, regular rhythm, S1 normal heart sound present and S2 normal heart sound present RATE: regular rate RHYTHM: regular rhythm HEART SOUNDS: S1 normal heart sound present and S2 normal heart sound present GI: COMMON NORMALS: Normal to inspection, nondistended, normoactive bowel sounds present, Soft to palpation, non-tender and No hepatosplenomegaly present PALPATION: Yes Soft to palpation and Yes No hepatosplenomegaly present Extremity: COMMON NORMALS: no pedal edema Urinary Catheter Management: Rowe: Cath Placed During This Visit: yes Reason for Continuing Indwelling Catheter: Accurate Measurement of Urinary Output in Critically Ill Patients Urinary Catheter Date of Insertion: 07/05/21 Urinary Catheter Time of Insertion: 15:55 Data : 07/06/21 05:25 07/06/21 05:25 Micro: Microbiology 07/05/21 17:40 Blood Culture - Preliminary Blood SPECIMEN COLLECTED 07/05/21 17:32 Blood Culture - Preliminary Blood SPECIMEN COLLECTED 07/05/21 15:18 Gram Stain - Final Sputum - Expectorated Sputum A&P Assessment and plan (1) Rhabdomyolysis: Status: Acute (2) Diabetes mellitus, with long-term current use of insulin: Status: Acute (3) Essential hypertension: Status: Acute (4) Methamphetamine abuse: Status: Acute (5) Schizophrenia: Status: Acute (6) H/O heart valve replacement with bioprosthetic valve: Status: Acute (7) Hypertension: Status: Acute (8) Anxiety and depression: Status: Acute (9) CAD (coronary artery disease): Status: Acute (10) Agitated depression: Status: Acute Plan Agitation, psychosis, drug intoxication -Intubated for airway protection -Currently on mechanical ventilation -Propofol, Versed for sedation -Plan on spontaneous breathing trial today, extubate on Precedex, Zyprexa 10 jermaine ry 12 -Zosyn for aspiration pneumonia prophylaxis -Sputum cultures, blood cultures, -CT head within normal limits -Urine toxicology screen positive for marijuana -Protonix for GI prophylaxis -Lovenox for DVT prophylaxis -Full code Rhabdomyolysis, continue IV fluids Type 2 diabetes mellitus A1c 8.9, low-dose sliding scale Metabolic acidosis, resolving, likely secondary to drug intoxication, agitation, ketones negative, continue to monitor CAD History of back pain, possible discitis, blood culture showed contamination Hepatitis C, acute hep testing, HIV History of aortic valve replacement Attestations Medical Necessity Statement*: Patient requires hospitalization for acute respiratory failure, agitation, psychosis, rhabdomyolysis Critical Care Time: 35 minutes Coding Level of Care Code Acute Department Store General Manager for Janis Barakat Diagnoses Rhabdomyolysis M62.82 Diabetes mellitus, with long-term current use of insulin E11.9; Z79.4 Essential hypertension I10 Methamphetamine abuse F15.10 Schizophrenia F20.9 H/O heart valve replacement with bioprosthetic valve Z95.3 Hypertension I10 Anxiety and depression F41.9; F32.A CAD (coronary artery disease) I25.10 Agitated depression F32.2
[2021-07-06] MEDS: propofol 1,000 MG/100 ML INJ 26.64 MG IV (14:19)
[2021-07-06] MEDS: lactulose oral liq 20 gm/30 mL UDC PO (14:26)
[2021-07-06] MEDS: midazolam 1 mg/mL INJ 2 mL IVP (15:19)
[2021-07-06] MEDS: haloperidol inj 5 mg/mL INJ 1 mL 2 MG IVP (15:20)
[2021-07-06] MEDS: LORazepam 2 mg/mL INJ 1 mL IVP (15:20)
[2021-07-06] MEDS: dexmedeTOMIDine 0.9 % NaCL 400 MCG/100 ML PREMIX 34.84 MCG IV (19:14)
[2021-07-06 19:26] LABS: Glucose Point of Care 149 mg/dL (70-110)
[2021-07-06] MEDS: pantoprazole 40 mg SDV IVP (19:28)
[2021-07-06] MEDS: enoxaparin 40 mg/0.4 mL Syringe SUBCUT (19:29)
--- NOTE | 2021-07-06 20:25 | PC.NURSE ---
Family Update Father, Yandel, called and received update on patient status. Extubation, visitor policy, and 96 hour holds discussed. Father verbalized understanding and stated no further questions.
[2021-07-06] MEDS: dexmedeTOMIDine 0.9 % NaCL 400 MCG/100 ML PREMIX 31.93 MCG IV (22:10)
[2021-07-06 23:20] LABS: Glucose Point of Care 168 mg/dL (70-110)
--- NOTE | 2021-07-06 23:46 | PC.NURSE ---
Temperature Patient's temperature 99.8F axillary. Blankets removed from patient and room temperature decreased.
[2021-07-07] VITALS (58 sets, daily range): BP systolic 89–146; BP diastolic 59–98; PULSE 59–72; RESP 14–22; TEMP 36.2–38.1; O2SAT 87–97; BMI 40.7
--- NOTE | 2021-07-07 | PC.NURSE ---
Temperature Patient axillary temperature 100.1F. Ice packs placed underarms and on groin.
[2021-07-07] MEDS: propofol 1,000 MG/100 ML INJ 33.3 MG IV ×8 (00:03→23:44)
[2021-07-07] MEDS: dexmedeTOMIDine 0.9 % NaCL 400 MCG/100 ML PREMIX 29.03 MCG IV (01:16)
[2021-07-07] MEDS: lactulose oral liq 20 gm/30 mL UDC PO ×2 (01:26→14:09)
[2021-07-07 04:40] LABS: Basophils % 0.3 %; Eosinophils # 0.1 10^3/uL (0.0-0.8); Eosinophils % 0.6 %; Hematocrit 41.1 % (42.0-52.0); Hemoglobin 13.9 g/dL (11.7-16.6); Lymphocytes # 2.3 10^3/uL (0.8-4.8); Lymphocytes % 29.4 %; Mean Corpuscular HGB Conc 33.8 g/dL (30.0-36.0); Mean Corpuscular Hemoglobin 30.4 pg (28.0-34.0); Mean Corpuscular Volume 89.9 fl (80-94); Mean Platelet Volume 10.2 fL (7.4-10.4); Monocytes # 0.5 10^3/uL (0.2-0.9); Monocytes % 5.9 %; Neutrophils # 5.03 10^3/uL (1.8-7.7); Neutrophils % 63.2 %; Nucleated Red Blood Cells % 0 %; Platelet Count 159 10^3/cmm (130-400); Red Blood Count 4.57 10^6/uL (4.1-5.3); Red Cell Distribution Width 13.2 % (12.1-15.1)
[2021-07-07 04:41] LABS: ABG PCO2 32.5 mmHg (35-45); ABG PH Result 7.45 (7.35-7.45); Arterial Blood Gas Hematocrit 37.5 % (42-52); Base Excess ABG -0.8 mmol/L (-2.0-2.0); Blood Gas Allen Test Pos; Blood Gas Sample Site Radial, right; Blood Gas Sample Type Arterial; Blood Gas Tidal Volume 0.55; HCO3 ABG 22.5 mmol/L (22-26); Oxygen Device VENT; PO2 ABG 60.6 mmHg (80.0-100.0)
[2021-07-07] MEDS: piperacillin-tazobactam 3.375 GM in sodium chloride 0.9% (plus) 50 ML IV ×3 (04:42→20:24)
[2021-07-07 04:46] LABS: INR 1.08 (0.8-1.2)
[2021-07-07 04:52] LABS: Lactate (Lactic Acid level) 1.2 mmol/L (0.5-2.2)
[2021-07-07 05:15] LABS: NT Pro B Type Natriuretic Pept 85 pg/mL (0-125); Procalcitonin 0.08 ng/mL (0-0.5)
[2021-07-07 05:28] LABS: Alanine Aminotransferase 13 U/L (0-41); Albumin Level 3.8 g/dL (3.5-5.2); Alkaline Phosphatase 84 IU/L (40-130); Aspartate Amino Transferase 16 U/L (0-40); Blood Urea Nitrogen 7 mg/dL (6-20); C Reactive Protein 23.1 mg/L (0.0-4.9); Carbon Dioxide 19 mmol/L (22-29); Chloride 110 mmol/L (98-107); Globulin 2.3 g/dL (1.3-4.6); Glomerular Filtration Rate 119.9 mL/min (90-130); Glucose 177 mg/dL (65-115); Magnesium 1.9 mg/dL (1.7-2.3); Osmolality Calculated 294 mOsm/kg (285-295); Phosphorus 2.3 mg/dL (2.5-4.5); Sodium 141 mmol/L (136-145); Total Bilirubin 0.2 mg/dL (0.15-1.2); Total Protein 6.1 g/dL (6.6-8.7)
[2021-07-07] MEDS: dexmedeTOMIDine 0.9 % NaCL 400 MCG/100 ML PREMIX 23.22 MCG IV ×4 (05:35→18:23)
[2021-07-07 06:00] LABS: Creatine Phosphokinase 607 U/L (39-308)
[2021-07-07 06:01] LABS: Anion Gap 15.8 (5-19); Potassium 3.8 mmol/L (3.5-5.1)
[2021-07-07] MEDS: insulin lispro 100 unit/1 mL SUBCUT ×2 (09:49→11:22)
[2021-07-07] MEDS: gabapentin 300 mg Capsule PO ×3 (11:06→20:24)
[2021-07-07] MEDS: OLANZapine 10 mg TABLET PO ×2 (11:06→23:59)
[2021-07-07] MEDS: BuSPIRONE 10 mg Tablet PO ×3 (11:06→20:24)
[2021-07-07] MEDS: lisinopril 20 mg Tablet 10 MG PO (11:06)
[2021-07-07 11:07] LABS: Glucose Point of Care 151 mg/dL (70-110)
[2021-07-07 11:26] LABS: Glucose Point of Care 155 mg/dL (70-110)
[2021-07-07] MEDS: propofol 1,000 MG/100 ML INJ 39.96 MG IV (12:05)
[2021-07-07] MEDS: sodium chloride 0.9% 1,000 ML 100 ML IV ×2 (12:07→20:24)
[2021-07-07 15:54] LABS: Glucose Point of Care 118 mg/dL (70-110)
[2021-07-07] MEDS: pantoprazole 40 mg SDV IVP (16:46)
[2021-07-07] MEDS: enoxaparin 40 mg/0.4 mL Syringe SUBCUT (16:47)
--- NOTE | 2021-07-07 16:47 | P.PN_ITS ---
Subjective Subjective: Interval history: Hospital course, labs appreciated. Patient intubated and sedated. Currently on Precedex, Versed, propofol. On minimal vent settings. Vitals/I&O/Wt Last Vital Signs Temp 97.1 F L 07/07/21 15:01 Pulse 61 07/07/21 15:01 Resp 14 07/07/21 15:01 BP 126/85 07/07/21 15:01 Pulse Ox 95 07/07/21 15:01 07/07/21 07/07/21 07/07/21 06:59 14:59 22:59 Intake Total 586.707 / 5023.512 556.979 / 556.979 Output Total 900 / 2100 850 / 850 Balance -313.293 / 2923.512 556.979 / 556.979 -850 / -293.021 Weight last 48 hrs Weight 121.472 kg Weight 116.12 kg Weight 116.12 kg Physical Exam Narrative: EXAM NARRATIVE: General: Intubated, sedated HEENT: PERRLA, pupils bilaterally equal and reactive Chest: Normal vesicular breath sounds, no added sounds, equal good air entry bilaterally CVS: S1-S2 regular, no murmurs, no tachycardia, no gallops, no rubs Abdomen: Soft, nontender, no organomegaly, bowel sounds present Neuro: Intubated, sedated Urinary Catheter Management: Rowe: Cath Placed During This Visit: yes Reason for Continuing Indwelling Catheter: Accurate Measurement of Urinary Output in Critically Ill Patients Urinary Catheter Date of Insertion: 07/05/21 Urinary Catheter Time of Insertion: 15:55 Data : 07/07/21 04:05 07/07/21 04:05 Micro: Microbiology 07/05/21 15:18 Gram Stain - Final Sputum - Expectorated Sputum Sputum Culture - Preliminary Staphylococcus aureus Gram Negative Rods 07/05/21 17:40 Blood Culture - Preliminary Blood NEGATIVE TO DATE 07/05/21 17:32 Blood Culture - Preliminary Blood NEGATIVE TO DATE A&P Assessment and plan (1) Psychosis: Status: Acute (2) Respiratory failure: Status: Acute (3) Rhabdomyolysis: Status: Acute (4) Agitated depression: Status: Acute (5) Diabetes mellitus, with long-term current use of insulin: Status: Acute (6) Essential hypertension: Status: Acute (7) Methamphetamine abuse: Status: Acute (8) Schizophrenia: Status: Acute (9) H/O heart valve replacement with bioprosthetic valve: Status: Acute (10) Hypertension: Status: Acute (11) CAD (coronary artery disease): Status: Acute (12) Anxiety and depression: Status: Acute Plan Acute psychosis: History of agitated depression, anxiety, depression. Intubated for airway protection. Continue sedation with propofol, Precedex. Stop Versed. Add fentanyl. Sedation vacation tomorrow we will plan for extubation. Check MRSA swab. Follow-up sputum culture. Follow blood culture. For now continue with Zosyn. Hepatitis panel, HIV, urine drug screen appreciated. CT head negative for any acute abnormality. Restart home dose of BuSpar, gabapentin. 96-hour hold. Continue Zyprexa. Psychiatric consultation once patient is extubated. Rhabdomyolysis: Most likely secondary to acute psychosis and agitation. Change D5 NS to normal saline at 100 cc/h. Type 2 diabetes mellitus: Check HbA1c. Insulin sliding scale at moderate dose protocol every 4 hourly. Metabolic acidosis, resolving, likely secondary to drug intoxication, agitation, ketones negative, continue to monitor CAD History of back pain, possible discitis, blood culture showed contamination History of aortic valve replacement Full code. Protonix for PUD prophylaxis. NPO. Lovenox for DVT prophylaxis Attestations Medical Necessity Statement*: Requires further hospitalization for management of acute psychosis, intubated for airway protection, 96-hour hold Critical Care Time: The high probability of a clinically significant, sudden or life threatening deterioration of the patient's [respiratory, neurological system(s) required my full and direct attention, intervention and personal management. The critical care time is as shown. This time is in addition to time spent performing any reported procedures but includes the following: [x] Data and vital sign review and interpretation [x] Patient assessment, examination and intervention [x] Documentation [x] Medication orders and management Critical Care Time (min): 50 Coding Level of Care Code Acute Plumber Gasfitter for Janis Barakat Diagnoses Rhabdomyolysis M62.82 Diabetes mellitus, with long-term current use of insulin E11.9; Z79.4 Essential hypertension I10 Methamphetamine abuse F15.10 Schizophrenia F20.9 H/O heart valve replacement with bioprosthetic valve Z95.3 Hypertension I10 Anxiety and depression F41.9; F32.A CAD (coronary artery disease) I25.10 Agitated depression F32.2 Respiratory failure J96.90 Psychosis F29
[2021-07-07 17:01] LABS: Glucose Point of Care 123 mg/dL (70-110)
--- NOTE | 2021-07-07 17:02 | PC.NURSE ---
We will attempt to reduce sedation and possibly extubate patient tommorow. Previous attempt has resulted in patient becoming extremely agitated. Patient's father, Alexey Hickman, has been given the okay to be present for the weaning/extubation by Dr palacios. Per Alexey, previous hospitalizations required family presence to calm the patient when he was being woken up. This nurse has informed Alexey of 96 hour hold which normally doesn't allow visitors. An exception is being made to progress patient care, and that he will likely have to leave after patient is manageable.
[2021-07-07] MEDS: acetaminophen 325 mg Tablet 650 MG PO (18:23)
--- NOTE | 2021-07-07 18:43 | PC.NURSE ---
Shift Summary: Uneventful shift. Patient rested in bed throughout the day. Planning on weaning trial tommorow and potential extubation. Dr Fabian wants Sedation to start coming off at 0800. Patient's father, Alexey Hickman, may be present for the weaning despite patient being on a 96 hour hold (see previous nurse note).
[2021-07-07 21:42] LABS: Glucose Point of Care 127 mg/dL (70-110)
[2021-07-07] MEDS: dexmedeTOMIDine 0.9 % NaCL 400 MCG/100 ML PREMIX 26.13 MCG IV (22:26)
[2021-07-08] VITALS (39 sets, daily range): BP systolic 89–176; BP diastolic 58–125; PULSE 60–121; RESP 14–38; TEMP 36.3–37.8; O2SAT 88–95
[2021-07-08 01:38] LABS: Glucose Point of Care 138 mg/dL (70-110)
[2021-07-08] MEDS: dexmedeTOMIDine 0.9 % NaCL 400 MCG/100 ML PREMIX 26.13 MCG IV ×2 (01:42→05:36)
[2021-07-08] MEDS: propofol 1,000 MG/100 ML INJ 33.3 MG IV ×3 (02:48→08:44)
--- NOTE | 2021-07-08 03:20 | PC.NURSE ---
No acute changes overnight. Continue care.
[2021-07-08 04:17] LABS: ABG PCO2 35.7 mmHg (35-45); ABG PH Result 7.37 (7.35-7.45); Arterial Blood Gas Hematocrit 40.2 % (42-52); Base Excess ABG -4.1 mmol/L (-2.0-2.0); Blood Gas Allen Test Pos; Blood Gas Sample Site Radial, right; Blood Gas Sample Type Arterial; HCO3 ABG 20.6 mmol/L (22-26); Oxygen Device VENT; PO2 ABG 60.9 mmHg (80.0-100.0)
[2021-07-08] MEDS: piperacillin-tazobactam 3.375 GM in sodium chloride 0.9% (plus) 50 ML IV ×2 (05:34→13:28)
[2021-07-08] MEDS: sodium chloride 0.9% 1,000 ML 100 ML IV ×2 (05:35→11:10)
[2021-07-08 05:38] LABS: Basophils % 0.4 %; Eosinophils # 0.1 10^3/uL (0.0-0.8); Eosinophils % 1.4 %; Hematocrit 44.9 % (42.0-52.0); Lymphocytes # 2.1 10^3/uL (0.8-4.8); Lymphocytes % 26.1 %; Mean Corpuscular HGB Conc 33.4 g/dL (30.0-36.0); Mean Corpuscular Hemoglobin 30.3 pg (28.0-34.0); Mean Corpuscular Volume 90.7 fl (80-94); Mean Platelet Volume 11.6 fL (7.4-10.4); Monocytes # 0.6 10^3/uL (0.2-0.9); Monocytes % 7.8 %; Neutrophils # 5.02 10^3/uL (1.8-7.7); Nucleated Red Blood Cells % 0 %; Platelet Count 106 10^3/cmm (130-400); Red Blood Count 4.95 10^6/uL (4.1-5.3); Red Cell Distribution Width 13.5 % (12.1-15.1); White Blood Count 7.8 10^3/uL (4.0-10.0)
[2021-07-08 05:49] LABS: Glucose Point of Care 130 mg/dL (70-110)
--- NOTE | 2021-07-08 06:00 | XRR_ITS ---
PROCEDURE INFORMATION: Exam: XR Chest Exam date and time: 07/08/2021 6:00 AM Age: 51 years old Clinical indication: Dyspnea; Additional info: Intubated TECHNIQUE: Imaging protocol: XR of the chest. Views: 1 view. COMPARISON: CR (CHEST, ) 07/06/2021 5:58 AM FINDINGS: Tubes, catheters and devices: Endotracheal tube terminates approximately 4 cm above the gabriel. NG tube passes into the stomach. Lungs: Low lung volumes with mild bibasilar atelectasis. Pleural spaces: Unremarkable. No pleural effusion. No pneumothorax. Heart/Mediastinum: Changes of prior aortic valve replacement. Bones/joints: Unremarkable. XR/XR chest 1V portable [id number] IMPRESSION: 1. Endotracheal tube terminates approximately 4 cm above the gabriel. 2. Low lung volumes with mild bibasilar atelectasis.
[2021-07-08 06:13] LABS: Slide Review Slide Review Perform
[2021-07-08 07:52] LABS: Glucose Point of Care 120 mg/dL (70-110)
[2021-07-08 08:08] LABS: Alanine Aminotransferase 13 U/L (0-41); Albumin Level 3.1 g/dL (3.5-5.2); Alkaline Phosphatase 81 IU/L (40-130); Aspartate Amino Transferase 20 U/L (0-40); Blood Urea Nitrogen 9 mg/dL (6-20); Calcium 8.5 mg/dL (8.5-10.5); Carbon Dioxide 17 mmol/L (22-29); Chloride 113 mmol/L (98-107); Globulin 2.8 g/dL (1.3-4.6); Glomerular Filtration Rate 102.7 mL/min (90-130); Glucose 124 mg/dL (65-115); Magnesium 1.8 mg/dL (1.7-2.3); Osmolality Calculated 296 mOsm/kg (285-295); Phosphorus 3.4 mg/dL (2.5-4.5); Sodium 143 mmol/L (136-145); Total Bilirubin 0.3 mg/dL (0.15-1.2); Total Protein 5.9 g/dL (6.6-8.7)
[2021-07-08 08:16] LABS: Anion Gap 17.4 (5-19); Creatine Phosphokinase 1393 U/L (39-308); Potassium 4.4 mmol/L (3.5-5.1)
[2021-07-08] MEDS: lisinopril 20 mg Tablet 10 MG PO (09:10)
[2021-07-08] MEDS: BuSPIRONE 10 mg Tablet PO ×3 (09:10→20:08)
[2021-07-08] MEDS: gabapentin 300 mg Capsule PO ×3 (09:10→20:08)
--- NOTE | 2021-07-08 10:16 | PC.CHAP ---
Pastoral Care Encounter/Spiritual Assessment Type of Contact [] Declined loop tender visit [] Patient/Family/Request visit [] Outpatient visit [] Follow-up visit [] Physician referral [] Code/Alert [x] Routine visit [] Staff referral [] Actively dying [x] Patient sleeping [x] Family support [] [] Out of room [] Palliative care [] [] Receiving care in room [] Pre-surgical visit [] Trauma [] Long length of stay [x] ICU visit [x] Other: vent... father present.. discussed patient and the possibility of being taken off vent Relational/Emotional Strength [] Patient feels connected with others/family/visitors/staff [] Distress [] Loneliness/isolation [] Abandonment Spirituality of Patient [] Person of Kimmie [] Attends Temple of their Kimmie [] Believes in Prayer [] Reads Bible or Orthodoxy materials [] There are Spiritual issues to be addressed Food Beverage Server Interventions [x] Prayer [] Active listening [] Non-anxious presence [] Spiritual/emotional support [] Crisis/trauma care [] Spiritual counseling [] Bereavement support [] Provided bereavement packet [] Provided Bible/devotional materials [] Provided toy/stuffed animal, coloring book to patient or family member [] Provided Communion [] Anointing/[place] [] Salvation [x] Completed spiritual assessment [] Other: Impact on Illness or Injury [] Angry [] Fearful [] Anxious [] Often cries [] Exhaustion [] Unable to work [] Unable to attend latter day [] Unable to walk/stand [] Unable to read [] Unable to drive [] Unable to eat/drink [] Unable to sleep [] Unable to be with family [] Patient intubated [] Other: Summary Time spent with patient
[2021-07-08 10:31] LABS: Glucose Point of Care 125 mg/dL (70-110)
[2021-07-08] MEDS: OLANZapine 10 mg TABLET PO ×2 (10:34→20:08)
[2021-07-08] MEDS: dexmedeTOMIDine 0.9 % NaCL 400 MCG/100 ML PREMIX 29.03 MCG IV (10:36)
[2021-07-08] MEDS: acetaminophen 325 mg Tablet 650 MG PO ×2 (10:42→19:15)
[2021-07-08] MEDS: haloperidol inj 5 mg/mL INJ 1 mL 2 MG IVP (11:51)
[2021-07-08] MEDS: LORazepam 2 mg/mL INJ 1 mL IVP ×2 (12:53→14:21)
--- NOTE | 2021-07-08 12:54 | PC.NURSE ---
Extubated at 1235 by RT and this nurse. Patient immediately asking for food then telling the nurse that he will kill me, cussing at staff.
[2021-07-08] MEDS: ziprasidone 20 mg/mL SDV IM (12:58)
--- NOTE | 2021-07-08 13:18 | PC.RESP ---
extubated and placed on 3lpm nc
[2021-07-08] MEDS: dexmedeTOMIDine 0.9 % NaCL 400 MCG/100 ML PREMIX 34.84 MCG IV (13:54)
--- NOTE | 2021-07-08 14:05 | PC.NURSE ---
Patient pulling oxygen out of nose multiple time, even with restrains on. Nurse placed simple mask on patient and patient removed. Multiple attempts to redirect. Patient cussing and kicking at nurses.
[2021-07-08] MEDS: haloperidol inj 5 mg/mL INJ 1 mL IVP (14:29)
[2021-07-08 15:30] LABS: Glucose Point of Care 154 mg/dL (70-110)
[2021-07-08] MEDS: insulin lispro 100 unit/1 mL SUBCUT ×3 (15:37→20:16)
--- NOTE | 2021-07-08 15:41 | PM.PN ---
Subjective Subjective: Interval history: Seen multiple times during the day. Overnight no acute events. During the day sedation was weaned off and patient was successfully extubated. Post extubation patient was agitated and thrashing again. Discussed care multiple times with Dr. Domingo from psychiatry. Patient received up to 3 mg of Haldol, 2 mg of Ativan and 1 Geodon. Post extubation saturation 88 to 92%. Has remained hemodynamically stable. Sputum culture growing MRSA. Vitals/I&O/Wt Last Vital Signs Temp 100.1 F H 07/08/21 10:42 Pulse 121 H 07/08/21 14:00 Resp 24 H 07/08/21 14:00 BP 158/96 07/08/21 14:00 Pulse Ox 89 L 07/08/21 14:00 07/08/21 07/08/21 07/08/21 06:59 14:59 22:59 Intake Total 1488.919 / 3341.534 1242.011 / 1242.011 Output Total 400 / 1650 Balance 1088.919 / 9945.763 3105.011 / 1242.011 Weight last 48 hrs Weight 117.962 kg Weight 121.472 kg Physical Exam Narrative: EXAM NARRATIVE: General: Awake, alert, agitated HEENT: PERRLA, pupils bilaterally equal and reactive Chest: Normal vesicular breath sounds, occasional rhonchi present in the right lower zone, equal good air entry bilaterally CVS: S1-S2 regular, no murmurs, no tachycardia, no gallops, no rubs Abdomen: Soft, nontender, no organomegaly, bowel sounds present Neuro: Intubated, sedated Const: GENERAL APPEARANCE: combative and well hydrated ORIENTATION/CONSCIOUSNESS: Yes awake, Yes oriented to person and Yes oriented to place Neuro: SENSORIUM/ORIENTATION: Yes oriented to person and Yes oriented to place Urinary Catheter Management: Rowe: Cath Placed During This Visit: yes Reason for Continuing Indwelling Catheter: Accurate Measurement of Urinary Output in Critically Ill Patients Urinary Catheter Date of Insertion: 07/05/21 Urinary Catheter Time of Insertion: 15:55 Data : 07/08/21 04:34 07/08/21 07:19 Micro: Microbiology 07/05/21 15:18 Gram Stain - Final Sputum - Expectorated Sputum Sputum Culture - Preliminary Methicillin Resis Staph Aureus Gram Negative Rods A&P Assessment and plan (1) Psychosis: Status: Acute (2) Respiratory failure: Status: Acute (3) Rhabdomyolysis: Status: Acute (4) Agitated depression: Status: Acute (5) Diabetes mellitus, with long-term current use of insulin: Status: Acute (6) Essential hypertension: Status: Acute (7) Methamphetamine abuse: Status: Acute (8) Schizophrenia: Status: Acute (9) H/O heart valve replacement with bioprosthetic valve: Status: Acute (10) Hypertension: Status: Acute (11) CAD (coronary artery disease): Status: Acute (12) Anxiety and depression: Status: Acute Plan Acute psychosis: History of agitated depression, anxiety, depression. Extubated successfully on 08/05. Continue with Haldol, Ativan as needed. If getting more than 10 mg of Haldol in 3 hours 50 mg of IV Benadryl. Continue with home dose of BuSpar gabapentin. Pneumonia: No consolidation present on chest imaging. Sputum culture growing MRSA and gram-negative rods. Start on linezolid. For now continue with Zosyn. On transfer to neuropsych diallo with history Levaquin to finish a course. Blood cultures so far negative. 96-hour hold. Continue Zyprexa. Psychiatric consultation once patient is extubated. Rhabdomyolysis: Most likely secondary to acute psychosis and agitation. Continue with normal saline 100 cc/h. Type 2 diabetes mellitus: HbA1c 8.9. Insulin sliding scale at moderate dose before meals and at bedtime Metabolic acidosis, resolving, likely secondary to drug intoxication, agitation, ketones negative, continue to monitor CAD History of back pain, possible discitis, blood culture showed contamination History of aortic valve replacement Full code. Protonix for PUD prophylaxis. Advance to clear liquid diet Lovenox for DVT prophylaxis Attestations Medical Necessity Statement*: Requires further hospitalization for acute psychosis, transfer to neuropsych diallo, 96-hour hold as patient is combative and high risk to self and others Critical Care Time: The high probability of a clinically significant, sudden or life threatening deterioration of the patient's [respiratory, neuropsych, neurological system(s) required my full and direct attention, intervention and personal management. The critical care time is as shown. 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
[2021-07-08] MEDS: pantoprazole 40 mg SDV IVP (16:49)
[2021-07-08] MEDS: enoxaparin 40 mg/0.4 mL Syringe SUBCUT (16:49)
[2021-07-08] MEDS: linezolid 600 mg Tablet PO (16:49)
--- NOTE | 2021-07-08 17:42 | PC.NURSE ---
Patient now calm and cooperative. Restraints being released 1 at a time, per Dr. Gardner.
[2021-07-08 18:49] LABS: Glucose Point of Care 218 mg/dL (70-110)
--- NOTE | 2021-07-08 19:04 | W.PM.NPUH&PS ---
Providers/Chief Complaint Admitting Physician: Sandeep Hu MD Primary Care Provider: Nba Rascon MD Chief Complaint: MHE HPI NPU History of Present Illness Shree Hickman is a 51 year old male who presented to the emergency department with the following report: Chief Complaint: ER Hold Stated Complaint: MHE Time Seen by Provider: 07/05/21 13:49 History of Present Illness:?? 51-year-old male presents to the emergency room in the custody of police.? He is extremely agitated physically and verbally aggressive.? Took multiple officers to continually redirect him and eventually were able to get into her room.? There he began becoming combative agitated making threatening gestures and attempting to tear equipment off of the wall. complaint: altered mental status Onset (ago): hour(s) History of same: Yes Relieving factors: none Exacerbating factors: none He received ketamine in the emergency department and then had what was apparently a paradoxical reaction and ultimately was intubated for safety. He was transferred to the ICU where he was maintained on sedative medications. He was extubated likely disoriented. A psychiatric consult was requested to determine safety to transfer to the NPU. Patient was initially requesting food and being somewhat erratic. He was in four-point restraints and pulling against those. Ultimately calmed down and agreed that he would be cooperative. He is known to this typewriter operator automatic and he apologized and even asked for a hug. He does not recall why he is here but he did report he was not taking his medication that he has occasionally been using drugs and he would be okay with being transferred to the neuropsychiatric unit on a 96-hour hold to explore medications etc. He reports he has not taken his medication for some time and denied any significant drug use. UDS was positive for cannabis. We agreed that once he was maintained out of restraints for a period of time he be transferred down to the neuropsychiatric unit for definitive treatment of his issues. Patient is a fairly poor historian but does report that he lives with family and that he was upset with letter please bring him in the other day. We reviewed his most recent psychiatric evaluation with this typewriter operator automatic which was back in April and he did endorse that it was an accurate representation of his history. An excerpt is included below. Per his 04/16/2021 [facility] inpatient psychiatric evaluation: History of Present Illness Shree Hickman is a 51 year old male who presented to the emergency department with the following report: Chief Complaint: Psychiatric Symptoms Stated Complaint: MHE Time Seen by Provider: 04/15/21 16:41 History of Present Illness:?? HPI Narrative: 51-year-old male presents to the emergency room with complaint of auditory and visual hallucinations encouraging him to harm others.? He denies use of alcohol or drugs.? Is a history of diabetes mellitus hypertension he has previously been admitted 10 PM for similar complaints.? He denies actually doing anything to harm himself or others at this point. complaint: altered mental status Onset (ago): hour(s) Duration: constant History of same: Yes Relieving factors: medication Exacerbating factors: none Context: not taking psychiatric medications Associated psychiatric symptoms: homicidal ideation, racing thoughts, auditory hallucinations and visual hallucinations Associated symptoms: Deny suicidal ideation Treatments prior to arrival: none. He was admitted to the neuropsychiatric unit for definitive treatment of those issues.? Patient presents today for reevaluation and not a great historian due to his endorsed level frustration and feelings of despair.? He continued to do it but he is not happy about his life and on multiple occasions reporting a desire to go out and find a place where the most people are to hurt, him and as many people as possible including himself.? He reports that he is so tired of people and he does not care who gets her reporting he wants to go to the busiest place, a school a shopping area and to start hurting people because he is tired of palpable I treated him and he does mostly into the soon as possible.? He cannot really articulate what is causing him being here.? He reports he hasn't been taking his psychiatric medications he hasn't been taking his medical medications and insulin.? We discussed the risk-benefit alternatives of possibly getting him on Invega or some other medication that has a shot version and he understood and agreed proceed as is documented in his note but in general he just said he did not care fine because he just wants to be if things continue like this. Per his 03/[facility]/20[facility]: History of Present Illness Shree Hickman is a 51 year old male who presented to the emergency department and was admitted to the Medr unit with the following report: Shree Hickman is a 51 year old male who presented to the emergency department I believe with vomiting and diarrhea.? Patient currently has received some Ativan and Dilaudid and goes from sleeping to waking with some agitation.? He has been pulling at his NG, and IVs.? Further history I cannot get from the patient currently. On review of records it is apparent he has had discitis and perhaps a decompression in the past.? This occurred at [facility] in [place] after a transfer from our emergency department October 19, and again on November 04.? Records will be requested so I can determine the exact hospital course.? This is pertinent secondary to L5-S1 discitis seen on CT abdomen and pelvis.? From my understanding when patient arrived he really was not complaining of any back pain, paresthesias or other lower extremity symptoms.? In his current state, an MRI could not be entertained.? The emergency department physician has alerted me that Dr. Ruiz has been notified of the case and will consult. I cannot confirm at this time if he got his blood culture through the emergency department prior to antibiotic administration. Psychiatric consult: Psychiatric consult was requested due to his significant psychiatric comorbidity.? Patient presents today reporting that sometime ago he just stopped taking his medication a few months ago due to challenges he had that were fairly vague.? He reports that in general he been doing well but he does acknowledge that he does better he is on his medication.? He gives no rational reason why he had discontinued the medication and agreed that I could review his records and restart what he was on last as he could not recall himself.? We discussed the risk-benefit alternatives of restarting his medication and appropriate dose and he understood agreed proceed as is documented in this note.? He has a history of addiction with psychosis likely related to methamphetamine versus organic psychosis which is never been teased out.? That he said multiple treatment has been with antidepressants and the only antipsychotic seem to be in proximity to his psychotic presentations suggesting the possibility that this is more related to drug-induced psychosis when the psychosis involved. Per his 07/12/2020 [facility] inpatient psychiatric evaluation: History of Present Illness Shree Hickman is a 50 year old male with past psychiatric history of depressive disorder, multiple past episodes of behavioral disturbances with suicidal ideation and homicidal ideation currently presenting with homicidal ideation toward his nephew who currently lives with him and his dad's house.? Patient reports recently leaving senior care 2 weeks ago and states that he has experienced worsening irritability, depression in the context of multiple stressors to include strained relationship with his nephew that lives in the same house.? Patient continues to report depressive symptoms, low mood, decreased motivation and interest.? He denies any current suicidal ideation.? Patient does report stating that he has thoughts about hurting his nephew but does not provide specific details.? Patient was placed on a 96-hour hold by police for this complaint of homicidal ideation.? Patient does not provide details with regards to history of physical violence towards other individuals and communicates lack of concern about potential consequences of hurting his nephew.? Patient does have longstanding history of substance abuse to include methamphetamine abuse but currently has UDS only positive for THC which the patient states he used a couple weeks ago after getting out of senior care. Patient currently denies any perceptual disturbances, denies any hallucinations, denies any delusions.? Patient has a past history of schizophrenia although he does not appear to demonstrate any disorganization of his thoughts, speech or behavior.? Unclear per chart review with regards to influence of substances or temporal relationship of previous signs or symptoms with substance use. Patient reports occasional anxiety symptoms related ongoing stressors, denies any recent panic attacks. Patient is noncompliant not only with psychiatric medication but also with medication for his diabetes with past reported blood sugar in the 400s.? Patient states that he has taken diabetes medication since his last hospitalization but is not specific with regards to his compliance and ongoing monitoring in the outpatient setting. Per above, patient also noncompliant with psychiatric medication as well as psychiatric follow-up.? Patient reports last being hospitalized for psychiatric reasons at this facility in December 2019 at which time Abilify was started but patient states he did not take this medication after discharge. Patient reports living with his father and states that his nephew and nephew's also live in the same house causing significant strained relationship. Meds NPU Home Medications Medication Instructions Recorded Confirmed Last Taken Type buspirone 10 mg tablet 10 mg PO TID #90 tab 05/16/21 07/06/21 Unknown Rx insulin aspar prt-insulin aspart 20 unit (0.2 mL) SUBCUT DAILY #10 05/16/21 07/06/21 Unknown Rx 100 unit/mL (70-30) subcutaneous ml soln (Novolog Mix 70-30 U-100 Insuln) lisinopril 20 mg tablet (Prinivil) 20 mg PO DAILY #30 tab 05/16/21 07/06/21 Unknown Rx pantoprazole 40 mg tablet,delayed 40 mg PO DAILY #30 tab 05/16/21 07/06/21 Unknown Rx release (Protonix) dextromethorphan-guaifenesin 20 5 ml PO Q6H PRN #120 ml 06/13/21 07/06/21 Unknown Rx mg-400 mg/5 mL oral liquid fluticasone propionate 50 1 spray INTRANASAL BID PRN #16 g 06/13/21 07/06/21 Unknown Rx mcg/actuation nasal spray,suspension gabapentin 300 mg capsule 300 mg PO TID 07/06/21 07/06/21 Unknown History Allergies Allergy/AdvReac Type Severity Reaction Status Date / Time ketamine Allergy Severe ADR-Agitate Verified 07/05/21 15:13 d Penicillins Allergy Severe Unknown Verified 07/09/21 03:28 PFSH NPU PFSH: Medical History Anxiety and depression Bowel obstruction CAD (coronary artery disease) Cellulitis and abscess of left leg Decreased calculated GFR Diabetes mellitus, with long-term current use of insulin GERD (gastroesophageal reflux disease) Hepatitis C History of bacterial endocarditis Homicidal ideation Hypertension Septic arthritis due to Streptococcus species Suicidal ideation URI with cough and congestion Surgical History History of aortic valve replacement with bioprosthetic valve History of heart valve replacement History of mitral valve replacement with bioprosthetic valve Family History Other Diabetes No significant family history Social History Smoking and tobacco status: unknown if ever smoked Alcohol intake: current Alcohol intake frequency: holidays/special occasions only Housing: Other Details: Homeless Current occupational status: unemployed Mental Status Exam MSE Comments: This is an obese white male in hospital gown with limited grooming and eye contact with poor dentition.? No abnormal movements except for psychomotor agitation.? Significant tattooing over his exposed skin including his stomach with some statement 100% [place].? Mostly cooperative with exam in mild to moderate distress.? Speech was dysarthric and increased rate and volume.? Mood described as hungry, affect flustered.? Thought process linear.? Thought content: Patient denied suicidal and homicidal ideation, there were no delusions reported or noted, he denied auditory or visual hallucinations.? Attention and concentration are limited memory appears mostly unreliable but none were formally tested.? He is alert and oriented x3.? Insight and judgment are impaired, impulse control appears impaired. Vitals/I&O/Wt Last Vital Signs Temp 97.4 F L 07/08/21 21:05 Pulse 120 H 07/08/21 21:05 Resp 18 07/08/21 21:05 BP 176/125 07/08/21 21:05 Pulse Ox 93 07/08/21 21:05 07/08/21 07/08/21 07/08/21 06:59 14:59 22:59 Intake Total 1488.919 / 3341.534 1242.011 / 1242.011 479.905 / 1721.916 Output Total 400 / 1650 1200 / 1200 Balance 1088.919 / 1005.137 2885.011 / 1242.011 -720.095 / 521.916 Weight last 48 hrs Weight 117.962 kg Weight 121.472 kg Physical Exam Urinary Catheter Management: Rowe: Cath Placed During This Visit: yes, but has since been removed by the nurse Reason for Continuing Indwelling Catheter: Decision to DC Catheter Urinary Catheter Date of Insertion: 07/05/21 Urinary Catheter Time of Insertion: 15:55 Date Urinary Catheter Removed: 07/08/21 Time Urinary Catheter Discontinued: 18:20 Data NPU : 07/08/21 04:34 07/08/21 07:19 Micro: Microbiology 07/05/21 15:18 Gram Stain - Final Sputum - Expectorated Sputum Sputum Culture - Preliminary Methicillin Resis Staph Aureus Gram Negative Rods Microbiology 07/05/21 15:18 Sputum - Expectorated Sputum Gram Stain - Final 07/05/21 15:18 Sputum - Expectorated Sputum Sputum Culture - Preliminary Methicillin Resis Staph Aureus Gram Negative Rods A&P Assessment and plan (1) Psychosis: Status: Acute (2) Agitated depression: Status: Acute (3) Rhabdomyolysis: Status: Acute (4) URI with cough and congestion: Status: Acute (5) Decreased calculated GFR: Status: Acute (6) Diabetes mellitus, with long-term current use of insulin: Status: Acute (7) GERD (gastroesophageal reflux disease): Status: Acute (8) Essential hypertension: Status: Acute (9) Methamphetamine abuse: Status: Acute (10) Schizophrenia: Status: Acute (11) Substance abuse: Status: Acute Plan This is a 51-year-old white male with a long history of depression,psychosis and addiction particularly methamphetamine which is often led to psychosis and agitation who presented to the emergency department with significant agitation which led to him getting ketamine, being intubated and placed on a 96-hour hold. 1.? Continue current medication.? Restart an antipsychotic medication that can be given as a long-acting injection 2.? Continue every 15 minute checks for safety. 3.? Encourage individual, group and milieu therapies. 4.? Encourage sober living treatment after discharge at the highest level of care to which he is willing to commit. 5. Transfer to neuropsychiatric unit when stable medically. Involuntary Hold Information 96 Hour Hold: 96 Hour Involuntary Admission: No Attestations NPU Medical Necessity Statement*: Inpatient hospitalization is medically necessary and the clinically appropriate intervention at this time. We will monitor medication to make changes as indicated. Patient will be in the hospital for over two midnights. Likely length of stay 3 to 5 days. Coding Level of Care Code Acute Residential Interior Designer for Janis Fwd Diagnoses Psychosis F29 Agitated depression F32.2 Rhabdomyolysis M62.82 URI with cough and congestion J06.9 Decreased calculated GFR R94.4 Diabetes mellitus, with long-term current use of insulin E11.9; Z79.4 GERD (gastroesophageal reflux disease) K21.9 Essential hypertension I10 Methamphetamine abuse F15.10 Schizophrenia F20.9 Substance abuse F19.10
[2021-07-08] MEDS: ketorolac 10 mg Tablet PO ×2 (19:42→23:01)
[2021-07-08 20:18] LABS: Glucose Point of Care 202 mg/dL (70-110)
--- NOTE | 2021-07-08 20:20 | PC.NURSE ---
Patient does report seeing bugs crawling on floor. Looked in MAR ativan ordered is IVP and patient has no IV access due to going to NPU soon. Called Dr. Hu and received orders to give zyprexa ordered at 2330 early to 2100.
--- NOTE | 2021-07-08 20:39 | PC.NURSE ---
Wasted Fentanyl, Versed, and propofol in room witnessed by Gray Mcelroy. RN
--- NOTE | 2021-07-08 20:40 | PC.NURSE ---
Transferred to NPU at 2029.
[2021-07-08 21:49] LABS: Glucose Point of Care 150 mg/dL (70-110)
[2021-07-08] MEDS: metoprolol tartrate 25 mg Tablet PO (23:01)
[2021-07-08] MEDS: lactulose oral liq 20 gm/30 mL UDC PO (23:02)
[2021-07-08] MEDS: haloperidol 5 mg Tablet PO (23:25)
--- NOTE | 2021-07-08 23:30 | PC.NURSE ---
Addendum entered by Mayo Luu RN 07/09/21 01:49: has given a V/O to give IM medications before he left for the evening. Original Note: At approximately 2340 patient staggered into the wall loudly exclaiming Where's the cut, I can't find where they cut me!! He was convinced that someone had performed surgery upon him. He insisted that I call the estimator and drafter supervisor. I called the supervisor char house as well as Security; as the patient was delusional and becoming increasingly aggressive. Patient was given PO Haldol 5mg at 2359. The Transcribing Machine Mechanic arrived and she and I continued to reorient and attempt to redirect patient. Patient continued to exhibit posturing, aggressive behavior. We were able to talk the patient into taking some injections to help with his anger and help him to relax. 50mg Benadryl and 2mg Atavan was given IM. With the help of security at standby; we were able to get patient to lay back down in his bed. Shortly there after patient fell asleep.
[2021-07-08] MEDS: LORazepam 2 mg/mL INJ 1 mL IM (23:58)
[2021-07-08] MEDS: diphenhydrAMINE 50 mg/mL SDV 1mL IM (23:59)
[2021-07-09] MEDS: hyDROXYzine 25 mg Capsule 50 MG PO (03:30)
[2021-07-09] MEDS: linezolid 600 mg Tablet PO ×2 (03:30→15:02)
[2021-07-09 06:00] VITALS: BP 172/91; PULSE 94; RESP 18; TEMP 36.4; O2SAT 94
[2021-07-09] MEDS: metoprolol tartrate 25 mg Tablet PO ×2 (06:01→21:28)
[2021-07-09] MEDS: levoFLOXacin 500 mg Tablet PO (06:01)
[2021-07-09] MEDS: glimepiride 2 mg Tablet PO (06:02)
[2021-07-09 07:20] LABS: Glucose Point of Care 227 mg/dL (70-110)
[2021-07-09] MEDS: BuSPIRONE 10 mg Tablet PO ×3 (08:06→21:28)
[2021-07-09] MEDS: pantoprazole DR 40 mg Tablet PO (08:06)
[2021-07-09] MEDS: gabapentin 300 mg Capsule PO ×3 (08:06→21:28)
[2021-07-09] MEDS: lisinopril 20 mg Tablet 10 MG PO (08:06)
[2021-07-09] MEDS: insulin aspart 70/30 100 units/1 mL 20 UNIT SUBCUT (08:07)
[2021-07-09] MEDS: acetaminophen 325 mg Tablet 650 MG PO ×2 (08:08→15:59)
[2021-07-09] MEDS: insulin lispro 100 unit/1 mL SUBCUT ×3 (08:09→23:07)
[2021-07-09] MEDS: ketorolac 10 mg Tablet PO (08:09)
[2021-07-09] MEDS: OLANZapine 5 mg ODT PO (08:16)
[2021-07-09 09:17] LABS: Ammonia 150 umol/L (16-60)
[2021-07-09] MEDS: LORazepam 2 mg Tablet PO (10:10)
[2021-07-09] MEDS: haloperidol 5 mg Tablet PO (10:10)
[2021-07-09 11:30] LABS: Glucose Point of Care 118 mg/dL (70-110)
[2021-07-09] MEDS: OLANZapine 10 mg TABLET PO ×2 (11:37→21:28)
--- NOTE | 2021-07-09 12:00 | PC.NURSE ---
Patient c/o shoulder pain early in shift. When nurse went to assess, patient was noted to be experiencing VH. Stated that he saw bugs crawling all over floor. Asked nurse if she saw them too, when told no stated he would catch them. PRN Zydis offered at that time for VH and patient was agreeable to taking. At 0810 patient given Tordol, Tylenol, and Zydis. At 1005 patient was talking with therapy and became upset. Began raising voice. Staff to room to attempt to redirect. Patient began to hit head against wall, not hitting hard, did listen when redirected. Went to bed and then began hitting self in face. alerted and gave new order to give Haldol 5 mg and Ativan 2 mg PO at that time. Given at 1010. Patient did calm quickly while sitting with staff. Tearful, stating he missed his dad. Patient placed one to one with staff. Medications effective. Patient has remained calm since. States that Tordol also effective for pain.
--- NOTE | 2021-07-09 12:57 | NPU.GN ---
[facility] Unit Group Topic: Self Care General Mood of Group: Shree did not attend group today.
[2021-07-09 14:00] VITALS: BP 138/76; PULSE 73; RESP 17; TEMP 37; O2SAT 98
[2021-07-09] MEDS: lactulose oral liq 20 gm/30 mL UDC PO (15:00)
[2021-07-09 16:48] LABS: Glucose Point of Care 251 mg/dL (70-110)
--- NOTE | 2021-07-09 17:36 | P.NPUPN_ITS ---
Subjective NPU Subjective: Interval history: Patient presents today reporting that he is feeling a little better. He expressed appreciation for the help he is getting. He did report significant pain in his shoulders. Last week it helped him with the pain. We discussed that he has had success in the past with Abilify. We discussed the risk benefits and alternatives of restarting Abilify and he understood and agreed proceed as is documented in his note. Mental Status Exam MSE Comments: This is an obese white male in hospital scrubs with limited grooming and eye contact with poor dentition.? No abnormal movements except for psychomotor retardation.? Significant tattooing over his exposed skin including his stomach with some statement 100% [place].? Mostly cooperative with exam in mild distress.? Speech was dysarthric and increased rate and volume.? Mood described as a little better but pain, affect flustered.? Thought process more organized.? Thought content: Patient denied suicidal and homicidal ideation, there were no delusions reported or noted, he denied auditory or visual halluci nations.? Attention and concentration are limited memory appears mostly unreliable but none were formally tested.? He is alert and oriented x3.? Insight and judgment are impaired, impulse control appears impaired. Vitals/I&O/Wt Last Vital Signs Temp 98.6 F 07/09/21 14:00 Pulse 73 07/09/21 14:00 Resp 17 07/09/21 14:00 BP 138/76 07/09/21 14:00 Pulse Ox 98 07/09/21 14:00 Physical Exam Urinary Catheter Management: Rowe: Cath Placed During This Visit: yes, but has since been removed by the nurse Reason for Continuing Indwelling Catheter: Decision to DC Catheter Urinary Catheter Date of Insertion: 07/05/21 Urinary Catheter Time of Insertion: 15:55 Date Urinary Catheter Removed: 07/08/21 Time Urinary Catheter Discontinued: 18:20 Data NPU : 07/08/21 04:34 07/08/21 07:19 A&P Assessment and plan (1) Psychosis: Status: Acute (2) Rhabdomyolysis: Status: Acute (3) CAD (coronary artery disease): Status: Acute (4) Anxiety and depression: Status: Acute (5) Diabetes mellitus, with long-term current use of insulin: Status: Acute (6) GERD (gastroesophageal reflux disease): Status: Acute (7) Essential hypertension: Status: Acute (8) Methamphetamine abuse: Status: Acute (9) DDD (degenerative disc disease), lumbosacral: Status: Acute (10) Schizophrenia: Status: Acute (11) Substance abuse: Status: Acute (12) H/O heart valve replacement with bioprosthetic valve: Status: Acute Plan This is a 51-year-old white male with a long history of depression,psychosis and addiction particularly methamphetamine which is often led to psychosis and agitation who presented to the emergency department with significant agitation which led to him getting ketamine, being intubated and placed on a 96-hour hold. 1.? Continue current medication.? Start Abilify 10 mg p.o. every morning and titrate to effect. 2.? Continue every 15 minute checks for safety. 3.? Encourage individual, group and milieu therapies. 4.? Encourage sober living treatment after discharge at the highest level of care to which he is willing to commit. Involuntary Hold Information 96 Hour Hold: 96 Hour Involuntary Admission: No Attestations NPU Medical Necessity Statement*: Inpatient hospitalization is medically necessary and the clinically appropriate intervention at this time. We will monitor medi cation to make changes as indicated. Likely length of stay 3 to 5 days. 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
[2021-07-09 20:22] VITALS: BP 159/81; PULSE 88; RESP 20; TEMP 36.8; O2SAT 99
[2021-07-09] MEDS: trazodone 50 mg Tablet PO (21:28)
[2021-07-09] MEDS: ARIPiprazole 10 mg Tablet PO (21:29)
[2021-07-09] MEDS: cyclobenzaprine 10 mg Tablet PO (21:30)
[2021-07-09 23:08] LABS: Glucose Point of Care 251 mg/dL (70-110)
[2021-07-10] MEDS: acetaminophen 325 mg Tablet 650 MG PO ×3 (00:02→17:58)
[2021-07-10 05:42] VITALS: BP 154/94; PULSE 78; RESP 17; TEMP 36.7; O2SAT 98
[2021-07-10 06:06] LABS: Glucose Point of Care 216 mg/dL (70-110)
[2021-07-10] MEDS: levoFLOXacin 500 mg Tablet PO (06:17)
[2021-07-10] MEDS: lactulose oral liq 20 gm/30 mL UDC PO ×2 (06:17→17:01)
[2021-07-10] MEDS: glimepiride 2 mg Tablet PO (06:19)
[2021-07-10] MEDS: gabapentin 300 mg Capsule PO ×3 (08:25→21:55)
[2021-07-10] MEDS: pantoprazole DR 40 mg Tablet PO (08:25)
[2021-07-10] MEDS: BuSPIRONE 10 mg Tablet PO ×3 (08:25→21:55)
[2021-07-10] MEDS: ARIPiprazole 10 mg Tablet PO (08:25)
[2021-07-10] MEDS: linezolid 600 mg Tablet PO ×2 (08:25→21:53)
[2021-07-10] MEDS: lisinopril 20 mg Tablet 10 MG PO (08:25)
[2021-07-10] MEDS: insulin lispro 100 unit/1 mL SUBCUT ×4 (08:52→21:55)
[2021-07-10] MEDS: metoprolol tartrate 25 mg Tablet PO ×2 (09:29→21:55)
[2021-07-10] MEDS: insulin aspart 70/30 100 units/1 mL 20 UNIT SUBCUT (09:30)
[2021-07-10] MEDS: OLANZapine 10 mg TABLET PO ×2 (10:48→23:13)
[2021-07-10 11:12] LABS: Glucose Point of Care 164 mg/dL (70-110)
--- NOTE | 2021-07-10 12:46 | NPU.GN ---
[facility] Unit Group Topic:Coping Skills General Mood of Group: Shree did not attend group today.
[2021-07-10 13:43] VITALS: BP 152/95; PULSE 83; RESP 22; TEMP 36.8; O2SAT 96
[2021-07-10 16:07] LABS: Glucose Point of Care 188 mg/dL (70-110)
[2021-07-10] MEDS: haloperidol 5 mg Tablet PO (17:59)
--- NOTE | 2021-07-10 18:08 | PC.NURSE ---
COULD HERE PATIENT IN HIS ROOM TALKING LOUDLY. NO ONE PRESENT. PATIENT REPORTS HES HEARING VOICES TELLING HIM HE WILL HAVE TO START ALL OVER AGAIN, AND OTHER NEGATIVE COMMENTS. HALDOL 5MG ADMINISTERED. WILL MONITOR FOR DRUG EFFECTIVENESS
--- NOTE | 2021-07-10 18:36 | W.PM.NPUPNS ---
Subjective NPU Subjective: Interval history: Patient presents today reporting that he is doing a little better. He was less isolative and more interactive. He had less complaints about his shoulder. He had no problematic outburst and reported he is eating and sleeping well. We discussed that Would be coming tomorrow and make an independent decision regarding his safety for discharge. Mental Status Exam MSE Comments: This is an obese white male in hospital scrubs with limited grooming and eye contact with poor dentition.? No abnormal movements except for psychomotor retardation.? Significant tattooing over his exposed skin including his stomach with some statement 100% [place].? Mostly cooperative with exam in no acute distress.? Speech was dysarthric and more normal rate and volume.? Mood described as a little better, affect congruent.? Thought process more organized.? Thought content: Patient denied suicidal and homicidal ideation, there were no delusions reported or noted, he denied auditory or visual hallucinations.? Attention and concentration are limited memory appears mostly unreliable but none were formally tested.? He is alert and oriented x3.? Insight and judgment are limited, impulse control appears limited, but improving. Vitals/I&O/Wt Last Vital Signs Temp 98.6 F 07/10/21 20:13 Pulse 97 07/10/21 20:13 Resp 22 H 07/10/21 20:13 BP 165/106 07/10/21 20:13 Pulse Ox 95 07/10/21 20:13 Physical Exam Urinary Catheter Management: Rowe: Cath Placed During This Visit: yes, but has since been removed by the nurse Reason for Continuing Indwelling Catheter: Decision to DC Catheter Urinary Catheter Date of Insertion: 07/05/21 Urinary Catheter Time of Insertion: 15:55 Date Urinary Catheter Removed: 07/08/21 Time Urinary Catheter Discontinued: 18:20 Data NPU : 07/08/21 04:34 07/08/21 07:19 Micro: Microbiology 07/05/21 17:40 Blood Culture - Final Blood NO GROWTH AFTER 5 DAYS 07/05/21 17:32 Blood Culture - Final Blood NO GROWTH AFTER 5 DAYS Microbiology 07/05/21 17:40 Blood Blood Culture - Final NO GROWTH AFTER 5 DAYS 07/05/21 17:32 Blood Blood Culture - Final NO GROWTH AFTER 5 DAYS A&P Assessment and plan (1) Psychosis: Status: Acute (2) Rhabdomyolysis: Status: Acute (3) URI with cough and congestion: Status: Acute (4) Decreased calculated GFR: Status: Acute (5) CAD (coronary artery disease): Status: Acute (6) Anxiety and depression: Status: Acute (7) Diabetes mellitus, with long-term current use of insulin: Status: Acute (8) GERD (gastroesophageal reflux disease): Status: Acute (9) Essential hypertension: Status: Acute (10) Methamphetamine abuse: Status: Acute (11) DDD (degenerative disc disease), lumbosacral: Status: Acute (12) Schizophrenia: Status: Acute (13) Substance abuse: Status: Acute (14) H/O heart valve replacement with bioprosthetic valve: Status: Acute Plan This is a 51-year-old white male with a long history of depression,psychosis and addiction particularly methamphetamine which is often led to psychosis and agitation who presented to the emergency department with significant agitation which led to him getting ketamine, being intubated and placed on a 96-hour hold. 1.? Continue current medication.? Started Abilify 10 mg p.o. every morning and will titrate to effect. Should consider Abilify maintain injection prior to discharge. 2.? Continue every 15 minute checks for safety. 3.? Encourage individual, group and milieu therapies. 4.? Encourage sober living treatment after discharge at the highest level of care to which he is willing to commit. Involuntary Hold Information 96 Hour Hold: 96 Hour Involuntary Admission: No Attestations NPU Medical Necessity Statement*: Inpatient hospitalization is medically necessary and the clinically appropriate intervention at this time. We will monitor medication to make changes as indicated.? Likely length of stay 1-3 days. Coding Level of Care Code Acute Breakdown Person for Chg Fwd Diagnoses Psychosis F29 Rhabdomyolysis M62.82 URI with cough and congestion J06.9 Decreased calculated GFR R94.4 CAD (coronary artery disease) I25.10 Anxiety and depression F41.9; F32.A Diabetes mellitus, with long-term current use of insulin E11.9; Z79.4 GERD (gastroesophageal reflux disease) K21.9 Essential hypertension I10 Methamphetamine abuse F15.10 DDD (degenerative disc disease), lumbosacral M51.37 Schizophrenia F20.9 Substance abuse F19.10 H/O heart valve replacement with bioprosthetic valve Z95.3
--- NOTE | 2021-07-10 18:40 | PC.NURSE ---
PATIENT REPORTS THE VOICES ARE A LOT BETTER. WILL CONT TO MONITOR , SUPPORT AND REDIRECT NEEDED
[2021-07-10 20:13] VITALS: BP 165/106; PULSE 97; RESP 22; TEMP 37; O2SAT 95
[2021-07-10 20:39] LABS: Glucose Point of Care 268 mg/dL (70-110)
[2021-07-10] MEDS: trazodone 50 mg Tablet PO (21:54)
--- NOTE | 2021-07-11 02:27 | PC.NURSE ---
Patient requested PRN trazodone to help with sleep, and later came to desk to request PRN flexeril for muscle cramps. Given both as ordered with noted effectiveness.
[2021-07-11] MEDS: acetaminophen 325 mg Tablet 650 MG PO (05:58)
[2021-07-11] MEDS: lactulose oral liq 20 gm/30 mL UDC PO ×2 (05:59→18:24)
[2021-07-11] MEDS: levoFLOXacin 500 mg Tablet PO (05:59)
[2021-07-11 06:00] VITALS: BP 133/83; PULSE 76; RESP 18; O2SAT 93
[2021-07-11 06:02] LABS: Glucose Point of Care 206 mg/dL (70-110)
[2021-07-11] MEDS: glimepiride 2 mg Tablet PO (06:39)
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
[2021-07-11] MEDS: ARIPiprazole 10 mg Tablet PO (10:50)
[2021-07-11] MEDS: gabapentin 300 mg Capsule PO ×3 (10:50→21:14)
[2021-07-11] MEDS: linezolid 600 mg Tablet PO ×2 (10:50→21:13)
[2021-07-11] MEDS: pantoprazole DR 40 mg Tablet PO (10:50)
[2021-07-11] MEDS: insulin lispro 100 unit/1 mL SUBCUT ×4 (10:51→23:13)
[2021-07-11] MEDS: OLANZapine 10 mg TABLET PO ×2 (10:51→23:10)
[2021-07-11] MEDS: BuSPIRONE 10 mg Tablet PO ×3 (10:51→21:15)
[2021-07-11] MEDS: lisinopril 20 mg Tablet 10 MG PO (10:51)
[2021-07-11] MEDS: metoprolol tartrate 25 mg Tablet PO ×2 (10:55→21:14)
[2021-07-11 11:17] LABS: Glucose Point of Care 257 mg/dL (70-110)
[2021-07-11] MEDS: insulin aspart 70/30 100 units/1 mL 20 UNIT SUBCUT (11:21)
--- NOTE | 2021-07-11 12:44 | NPU.GN ---
[facility] Unit Group Topic:Symptoms/ Judgment Boat Activity General Mood of Group:Shree did not attend group today.
[2021-07-11 14:00] VITALS: BP 123/85; PULSE 75; RESP 24; TEMP 36.7; O2SAT 95
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
[2021-07-11 16:35] LABS: Glucose Point of Care 172 mg/dL (70-110)
[2021-07-11] MEDS: loperamide 2 mg Capsule PO (18:41)
[2021-07-11] MEDS: trazodone 50 mg Tablet PO (21:15)
[2021-07-11 22:00] VITALS: BP 123/78; PULSE 110; RESP 22; TEMP 36.5; O2SAT 99
[2021-07-11 23:03] LABS: Glucose Point of Care 192 mg/dL (70-110)
--- NOTE | 2021-07-12 00:04 | PC.NURSE ---
2115- Trazodone given po for sleep. It was effective.
[2021-07-12 06:00] VITALS: BP 148/65; PULSE 73; RESP 16; O2SAT 92
[2021-07-12] MEDS: glimepiride 2 mg Tablet PO (06:32)
[2021-07-12] MEDS: levoFLOXacin 500 mg Tablet PO (06:32)
[2021-07-12 06:33] LABS: Glucose Point of Care 179 mg/dL (70-110)
[2021-07-12] MEDS: linezolid 600 mg Tablet PO ×2 (10:13→21:03)
[2021-07-12] MEDS: gabapentin 300 mg Capsule PO ×3 (10:14→20:49)
[2021-07-12] MEDS: lisinopril 20 mg Tablet 10 MG PO (10:14)
[2021-07-12] MEDS: BuSPIRONE 10 mg Tablet PO ×3 (10:14→20:49)
[2021-07-12] MEDS: ARIPiprazole 10 mg Tablet PO (10:14)
[2021-07-12] MEDS: pantoprazole DR 40 mg Tablet PO (10:15)
[2021-07-12] MEDS: insulin lispro 100 unit/1 mL SUBCUT ×4 (10:15→21:02)
[2021-07-12] MEDS: insulin aspart 70/30 100 units/1 mL 20 UNIT SUBCUT (10:16)
--- NOTE | 2021-07-12 11:03 | W.PM.NPUPNS ---
Subjective NPU Subjective: Interval history: He was fairly agitated today around 10:30 AM. He said that he woke up from a dream and thought his room was full of smoke. He is adamant that it was just after the dream and then he is fine now. He is still pacing in his room and swinging his arm some. He says he is excited to be discharged because he wants to get back to work. 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 He says that they are very good to him and he does not want to lose that job. That is the first job he is ever had. He says that he has been a nonfunctional member of society up until now. He has been using drugs and says that he is going to stop. Mental Status Exam MSE Comments: This is an obese white male in hospital scrubs with limited grooming and eye contact with poor dentition.? No abnormal movements except for increased psychomotor activity.? Significant tattooing over his exposed skin including his stomach with some statement 100% [place].? Mostly cooperative with exam in no acute distress.? Speech was dysarthric and more normal rate and volume.? Mood described as good, affect congruent.? Thought process more organized.? Thought content: Patient denied suicidal and homicidal ideation, there were no delusions reported or noted, he denied auditory or visual hallucinations.? Attention and concentration are limited memory appears mostly unreliable but none were formally tested.? He is alert and oriented x3.? Insight and judgment are limited, impulse control appears limited, but improving. Cognition: Patient Appearance: Appears Older than Age Level of Consciousness: Sedated Patient Cognition Impaired: Yes Ability to Follow Directions: Poor Patient Orientation (long list): Person, Place, Time, Name, Age and Birthday Hallucination Type: None Delusion Description: Not Present Thought Process: Appropriate Affect: Affect Description: Calm Behavior: Patient Behavior: Cooperative Speech Pattern: Clear Vitals/I&O/Wt Last Vital Signs Temp 97.7 F 07/11/21 22:00 Pulse 73 07/12/21 06:00 Resp 16 07/12/21 06:00 BP 148/65 07/12/21 06:00 Pulse Ox 92 07/12/21 06:00 Physical Exam Urinary Catheter Management: Rowe: Cath Placed During This Visit: yes, but has since been removed by the nurse Reason for Continuing Indwelling Catheter: Decision to DC Catheter Urinary Catheter Date of Insertion: 07/05/21 Urinary Catheter Time of Insertion: 15:55 Date Urinary Catheter Removed: 07/08/21 Time Urinary Catheter Discontinued: 18:20 Data NPU : 07/08/21 04:34 07/08/21 07:19 A&P Assessment and plan (1) Psychosis: Status: Acute (2) Rhabdomyolysis: Status: Acute (3) URI with cough and congestion: Status: Acute (4) Decreased calculated GFR: Status: Acute (5) CAD (coronary artery disease): Status: Acute (6) Anxiety and depression: Status: Acute (7) Diabetes mellitus, with long-term current use of insulin: Status: Acute (8) GERD (gastroesophageal reflux disease): Status: Acute (9) Essential hypertension: Status: Acute (10) Methamphetamine abuse: Status: Acute (11) DDD (degenerative disc disease), lumbosacral: Status: Acute (12) Schizophrenia: Status: Acute (13) Substance abuse: Status: Acute (14) H/O heart valve replacement with bioprosthetic valve: Status: Acute Plan This is a 51-year-old white male with a long history of depression,psychosis and addiction particularly methamphetamine which is often led to psychosis and agitation who presented to the emergency department with significant agitation which led to him getting ketamine, being intubated and placed on a 96-hour hold. 1.? Continue current medication.? Abilify 10 mg p.o. every morning and will titrate to effect. Should consider Abilify maintain injection prior to discharge. 2.? Continue every 15 minute checks for safety. 3.? Encourage individual, group and milieu therapies. 4.? Encourage sober living treatment after discharge at the highest level of care to which he is willing to commit. Involuntary Hold Information 96 Hour Hold: 96 Hour Involuntary Admission: No Attestations NPU Medical Necessity Statement*: Inpatient hospitalization is medically necessary and the clinically appropriate intervention at this time. We will initiate medications and make changes as indicated. 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
[2021-07-12] MEDS: OLANZapine 10 mg TABLET PO ×2 (11:36→23:17)
[2021-07-12 12:27] LABS: Glucose Point of Care 259 mg/dL (70-110)
[2021-07-12 12:58] VITALS: BP 120/77; PULSE 91; RESP 20; TEMP 36.7; O2SAT 94
[2021-07-12 14:00] VITALS: BP 120/77; PULSE 91; RESP 20; TEMP 36.7; O2SAT 94
[2021-07-12 17:57] LABS: Glucose Point of Care 211 mg/dL (70-110)
[2021-07-12 19:39] VITALS: BP 135/88; PULSE 91; RESP 18; TEMP 37.1; O2SAT 96
[2021-07-12] MEDS: metoprolol tartrate 25 mg Tablet PO (20:45)
[2021-07-12] MEDS: trazodone 50 mg Tablet PO ×2 (20:49→23:57)
[2021-07-12 21:34] LABS: Glucose Point of Care 252 mg/dL (70-110)
[2021-07-13] MEDS: hyDROXYzine 25 mg Capsule 50 MG PO (03:18)
[2021-07-13 05:42] VITALS: BP 135/88; PULSE 91; RESP 18; TEMP 37.1
[2021-07-13] MEDS: glimepiride 2 mg Tablet PO (05:48)
[2021-07-13] MEDS: levoFLOXacin 500 mg Tablet PO (05:48)
[2021-07-13] MEDS: lactulose oral liq 20 gm/30 mL UDC PO (05:48)
[2021-07-13 07:55] LABS: Glucose Point of Care 211 mg/dL (70-110)
--- NOTE | 2021-07-13 08:12 | P.NPUDS_ITS ---
Diagnoses at Discharge Discharge Diagnosis (1) Psychosis: Status: Acute (2) Rhabdomyolysis: Status: Acute (3) URI with cough and congestion: Status: Acute (4) Decreased calculated GFR: Status: Acute (5) CAD (coronary artery disease): Status: Acute (6) Anxiety and depression: Status: Acute (7) Diabetes mellitus, with long-term current use of insulin: Status: Acute (8) GERD (gastroesophageal reflux disease): Status: Acute (9) Essential hypertension: Status: Acute (10) Methamphetamine abuse: Status: Acute (11) DDD (degenerative disc disease), lumbosacral: Status: Acute (12) Schizophrenia: Status: Acute (13) Substance abuse: Status: Acute (14) H/O heart valve replacement with bioprosthetic valve: Status: Acute Reason for Visit Reason for Visit: MHE Brief History: 51-year-old male presents to the em ergency room in [facility] custody of [facility].? He is extremel y agitated physica lly and verbally a ggressive.? Took m ultiple officers t o continually redi rect him and event jarredtony were able to get into her room .? There he began becoming combative agitated making t hreatening gesture s and attempting t o tear equipment o ff of the wall.MD complaint: altered mental status Ons et (ago): hour(s) History of same: Y es Relieving facto rs: none Exacerbat ing factors: none He received ketamine in the emergency department and then had what was apparently a paradoxical reaction and ultimately was intubated for safety.? He was transferred to the ICU where he was maintained on sedative medications.? He was extubated likely disoriented.? ? A psychiatric consult was requested to determine safety to transfer to the NPU.? Patient was initially requesting food and being somewhat erratic.? He was in four-point restraints and pulling against those.? Ultimately calmed down and agreed that he would be cooperative.? He is known to this radio news writer and he apologized and even asked for a hug.? He does not recall why he is here but he did report he was not taking his medication that he has occasionally been using drugs and he would be okay with being transferred to the neuropsychiatric unit on a 96-hour hold to explore medications etc.? He reports he has not taken his medication for some time and denied any significant drug use.? UDS was positive for cannabis.? We agreed that once he was maintained out of restraints for a period of time he be transferred down to the [facility] for definitive treatment of his issues.? Patient is a fairly poor historian but does report that he lives with family and that he was upset with letter please bring him in the other day.? We reviewed his most recent psychiatric evaluation with this radio news writer which was back in April and he did endorse that it was an accurate representation of his history.? An excerpt is included below. Per his 04/16/2021 [facility] inpatient psychiatric evaluation: History of Present Illness Shree Hickman is a 51 year old male who presented to the emergency department with the following report: Chief Complaint: Psychiatric Symptoms Stated Complaint: MHE Time Seen by Provider: 04/15/21 16:41 History of Present Illness:?? HPI Narrative: 51-year-old male presents to the emergency room with complaint of auditory and visual hallucinations encouraging him to harm others.? He denies use of alcohol or drugs.? Is a history of diabetes mellitus hypertension he has previously been admitted 10 PM for similar complaints.? He denies actually doing anything to harm himself or others at this point. MD complaint: altered mental status Onset (ago): hour(s) Duration: constant History of same: Yes Relieving factors: medication Exacerbating factors: none Context: not taking psychiatric medications Associated psychiatric symptoms: homicidal ideation, racing thoughts, auditory hallucinations and visual hallucinations Associated symptoms: Deny suicidal ideation Treatments prior to arrival: none. He was admitted to the neuropsychiatric unit for definitive treatment of those issues.? Patient presents today for reevaluation and not a great historian due to his endorsed level frustration and feelings of despair.? He continued to do it but he is not happy about his life and on multiple occasions reporting a desire to go out and find a place where the most people are to hurt, him and as many people as possible including himself.? He reports that he is so tired of people and he does not care who gets her reporting he wants to go to the busiest place, a school a shopping area and to start hurting people because he is tired of palpable I treated him and he does mostly into the soon as possible.? He cannot really articulate what is causing him being here.? He reports he hasn't been taking his psychiatric medications he hasn't been taking his medical medications and insulin.? We discussed the risk-benefit alternatives of possibly getting him on Invega or some other medication that has a shot version and he understood and agreed proceed as is documented in his note but in general he just said he did not care fine because he just wants to be if things continue like this. Hospital Course Hospital Course He slowly acclimated to the individual, group and milieu therapies provided. He was given gabapentin 300 mg 3 times daily, Abilify 10 mg daily, and Zyprexa 10 mg twice a day, BuSpar 10 mg 3 times daily and trazodone at bedtime for sleep. He tolerated these doses and showed steady improvement during his stay. He was able to contract for safety outside hospital prior to discharge. During the hospitalization, patient had routine laboratory studies which were within normal limits except for few outliers. Additionally there was a general medical evaluation which was also within normal limits and revealed no new acute processes. Discharge Summary: At the time of discharge, lethality was denied and psychosis was resolving. Mood and anxiety were well managed. Patient endorsed a plan to follow-up with the aftercare recommendations of the treatment team. Patient was evaluated and deemed to be absent credible lethality, and had achieved the maximum benefit from an inpatient hospitalization, so was discharged. Involuntary Hold Information 96 Hour Hold: 96 Hour Involuntary Admission: No Mental Status Exam MSE Comments: This is an obese white male in hospital scrubs with limited grooming and eye contact with poor dentition.? No abnormal movements except for increased psychomotor activity.? Significant tattooing over his exposed skin including his stomach with some statement 100% [place].? Mostly cooperative with exam in no acute distress.? Speech was dysarthric and more normal rate and volume.? Mood described as good, affect congruent.? Thought process more organized.? Thought content: Patient denied suicidal and homicidal ideation, there were no delusions reported or noted, he denied auditory or visual hallucinations.? Attention and concentration are limited memory appears mostly unreliable but none were formally tested.? He is alert and oriented x3.? Insight and judgment are limited, impulse control appears limited, but improving. Cognition: Patient Appearance: Appears Older than Age Level of Consciousness: Sedated Patient Cognition Impaired: Yes Ability to Follow Directions: Poor Patient Orientation (long list): Person, Place, Time, Name, Age and Birthday Hallucination Type: None Delusion Description: Not Present Thought Process: Appropriate Affect: Affect Description: Calm Behavior: Patient Behavior: Cooperative Speech Pattern: Clear Physical Exam Urinary Catheter Management: Rowe: Cath Placed During This Visit: yes, but has since been removed by the nurse Reason for Continuing Indwelling Catheter: Decision to DC Catheter Urinary Catheter Date of Insertion: 07/05/21 Urinary Catheter Time of Insertion: 15:55 Date Urinary Catheter Removed: 07/08/21 Time Urinary Catheter Discontinued: 18:20 Discharge Data Studies Completed and Pending: Completed Studies During Hospitalization Category Date Time Status CT head wo con* 7 0450 Stat Cat Scan 07/05/21 15:03 Completed CXRP [XR chest 1V portable [id number]] S tat Exams 07/05/21 14:57 Completed XR KUB portable 7 4018 Stat Exams 07/05/21 17:10 Completed XR chest 1V randy ble [id number] QAM Exams 07/08/21 06:00 Completed XR chest 1V randy ble [id number] Routine Exams 07/06/21 05:05 Completed Pending at discharge Category Date Time Status Sputum Culture an d Gram Stain Stat Lab 07/05/21 15:18 Results Radiology Impressions Head CT 07/05/21 15:03 IMPRESSION: 1. Sinus disease. 2. No acute intracranial finding. KUB X-Ray 07/05/21 17:10 IMPRESSION: Grossly unremarkable portable abdomen. Chest X-Ray 07/08/21 06:00 IMPRESSION: 1. Endotracheal tube terminates approximately 4 cm above the gabriel. 2. Low lung volumes with mild bibasilar atelectasis. Laboratory Results WBC 7.8 10^3/uL (4.0- 10.0) 07/08/21 04:34 RBC 4.95 10^6/uL (4.1 -5.3) 07/08/21 04:34 Hgb 15.0 g/dL (11.7-1 6.6) 07/08/21 04:34 Hct 44.9 % (42.0-52.0 ) 07/08/21 04:34 MCV 90.7 fl (80-94) 07/08/21 04:34 MCH 30.3 pg (28.0-34. 0) 07/08/21 04:34 MCHC 33.4 g/dL (30.0-3 6.0) 07/08/21 04:34 RDW 13.5 % (12.1-15.1 ) 07/08/21 04:34 Plt Count 106 10^3/cmm (130 -400) L D 07/08/21 04:34 MPV 11.6 fL (7.4-10.4 ) H 07/08/21 04:34 Neut % (Auto) 64.0 % 07/08/21 04:34 Lymph % (Auto) 26.1 % 07/08/21 04:34 [place] % (Auto) 7.8 % 07/08/21 04:34 Eos % (Auto) 1.4 % 07/08/21 04:34 Baso % (Auto) 0.4 % 07/08/21 04:34 Neut # (Auto) 5.02 10^3/uL (1.8 -7.7) 07/08/21 04:34 Lymph # (Auto) 2.1 10^3/uL (0.8- 4.8) 07/08/21 04:34 [place] # (Auto) 0.6 10^3/uL (0.2- 0.9) 07/08/21 04:34 Eos # (Auto) 0.1 10^3/uL (0.0- 0.8) 07/08/21 04:34 Baso # (Auto) 0.0 10^3/uL (0.0- 0.1) 07/08/21 04:34 Nucleated RBC % (a uto) 0 % 07/08/21 04:34 Nucleated RBCs # 0.0 /100WBC 07/08/21 04:34 PT 14.40 SECONDS (12 .1-14.9) 07/07/21 04:05 INR 1.08 (0.8-1.2) 07/07/21 04:05 Specimen Type Arterial 07/08/21 04:00 Sample Site Radial, right 07/08/21 04:00 ABG pH 7.37 (7.35-7.45) 07/08/21 04:00 ABG pCO2 35.7 mmHg (35-45) 07/08/21 04:00 ABG pO2 60.9 mmHg (80.0-1 00.0) L 07/08/21 04:00 ABG HCO3 20.6 mmol/L (22-2 6) L 07/08/21 04:00 ABG O2 Saturation 98 07/05/21 15:43 ABG Base Excess -4.1 mmol/L (-2.0 -2.0) L 07/08/21 04:00 Evan Test Pos 07/08/21 04:00 A-a O2 Gradient 194.2 mmHg (5-10) H 07/05/21 15:43 Hematocrit 40.2 % (42-52) L 07/08/21 04:00 Hgb O2 Saturation 96.3 % (95-100) 07/05/21 15:43 Carboxyhemoglobin 0.8 %THgb (0.4-20 .1) 07/05/21 15:43 Methemoglobin 0.7 % (0.4-1.5) 07/05/21 15:43 Total Hemoglobin 14.8 g/dL (14-18) 07/05/21 15:43 Sodium 140.0 mmol/L (131 -143) 07/05/21 15:43 Potassium 4.9 mmol/L (3.5-5 .0) 07/05/21 15:43 Glucose Not Reportable 07/05/21 15:43 Ionized Calcium Not Reportable 07/05/21 15:43 O2 Delivery Device Vent 07/08/21 04:00 Vent Mode Cmv 07/05/21 15:43 FiO2 24.0 % 07/08/21 04:00 Tidal Volume 0.50 07/08/21 04:00 PEEP 5.0 cmH20 07/08/21 04:00 Specimen Drawn By Karo 07/05/21 15:43 Office Director ID ellpe 07/08/21 04:00 Crit Value Read Ba ck 1559 07/05/21 15:43 Blood Gas Notified Time 1559 07/05/21 15:43 Sodium 143 mmol/L (136-1 45) 07/08/21 07:19 Potassium 4.4 mmol/L (3.5-5 .1) 07/08/21 07:19 Chloride 113 mmol/L (98-10 7) H 07/08/21 07:19 Carbon Dioxide 17 mmol/L (22-29) L 07/08/21 07:19 Anion Gap 17.4 (5-19) 07/08/21 07:19 BUN 9 mg/dL (6-20) 07/08/21 07:19 Creatinine 0.8 mg/dL (0.7-1. 2) 07/08/21 07:19 GFR Calculation 102.7 mL/min (90- 130) 07/08/21 07:19 Glucose 124 mg/dL (65-115 ) H 07/08/21 07:19 POC Glucose 211 mg/dL (70-110 ) H 07/13/21 07:52 Estimat Average Gl ucose 209 07/05/21 17:40 Hemoglobin A1c 8.9 % (4.0-6.0) H 07/05/21 17:40 Calculated Osmolal ity 296 mOsm/kg (285- 295) H 07/08/21 07:19 Lactic Acid 3.2 mmol/L (0.5-2 .2) H 07/05/21 17:40 Lactic Acid (Sepsi s) 2.1 mmol/L (0.5-2 .2) 07/05/21 21:10 Lactate 1.2 mmol/L (0.5-2 .2) 07/07/21 04:05 Calcium 8.5 mg/dL (8.5-10 .5) 07/08/21 07:19 Phosphorus 3.4 mg/dL (2.5-4. 5) 07/08/21 07:19 Magnesium 1.8 mg/dL (1.7-2. 3) 07/08/21 07:19 Total Bilirubin 0.3 mg/dL (0.15-1 .2) 07/08/21 07:19 AST 20 U/L (0-40) 07/08/21 07:19 ALT 13 U/L (0-41) 07/08/21 07:19 Alkaline Phosphata se 81 IU/L (40-130) 07/08/21 07:19 Ammonia 150 umol/L (16-60 ) H 07/09/21 07:57 Creatine Kinase 1393 U/L (39-308) H* 07/08/21 07:19 C-Reactive Protein 23.1 mg/L (0.0-4. 9) H 07/07/21 04:05 NT-Pro-B Natriuret Pep 85 pg/mL (0-125) 07/07/21 04:05 Total Protein 5.9 g/dL (6.6-8.7 ) L 07/08/21 07:19 Albumin 3.1 g/dL (3.5-5.2 ) L 07/08/21 07:19 Globulin 2.8 g/dL (1.3-4.6 ) 07/08/21 07:19 Triglycerides 467 mg/dL (0-150) H 07/05/21 14:35 Cholesterol 210 mg/dL (0-200) H 07/05/21 14:35 LDL Cholesterol Di rect 114 mg/dL (0-100) H 07/05/21 14:35 LDL Cholesterol, C alc Not Reportable 07/05/21 14:35 HDL Cholesterol 30 mg/dL (60-100) L 07/05/21 14:35 LDL/HDL Ratio Not Reportable 07/05/21 14:35 Cholesterol/HDL Ra matt 7.00 mg/dL (1.0-5 .00) H 07/05/21 14:35 Procalcitonin 0.08 ng/mL (0-0.5 ) 07/07/21 04:05 TSH 2.75 uIU/mL (0.27 -4.20) 07/05/21 14:35 Urine Color Yellow (Yellow) 07/05/21 15:49 Urine Appearance Clear (CLEAR) 07/05/21 15:49 Urine pH 5 (5-7) 07/05/21 15:49 Ur Specific Gravit y 1.025 (1.005-1.0 30) 07/05/21 15:49 Urine Protein 3+ (Negative) H 07/05/21 15:49 Urine Glucose (UA) 1+ (Normal) H 07/05/21 15:49 Urine Ketones Negative (Negati ve) 07/05/21 15:49 Urine Blood 2+ (Negative) H 07/05/21 15:49 Urine Nitrate Negative (Negati ve) 07/05/21 15:49 Urine Bilirubin Neg (Negative) 07/05/21 15:49 Urine Urobilinogen Norm mg/dL (Negat jeannette) 07/05/21 15:49 Ur Leukocyte Sarah ase Negative (Negati ve) 07/05/21 15:49 Urine RBC Rare /hpf (0-2) 07/05/21 15:49 Urine WBC Rare /hpf (0-5) 07/05/21 15:49 Ur Squamous Epith Cells None /hpf (0-5) 07/05/21 15:49 Amorphous Sediment 1+ /hpf 07/05/21 15:49 Urine Bacteria None /hpf (NONE) 07/05/21 15:49 Hyaline Casts 0-4 /lpf H 07/05/21 15:49 Salicylates < 0.3 mg/dL (3-10 ) L 07/05/21 14:35 Urine Opiates Scre en Negative ng/mL (N egative) 07/05/21 15:49 Acetaminophen < 5.0 ug/mL (10-3 0) L 07/05/21 14:35 Ur Barbiturates Sc reen Negative ng/mL (N egative) 07/05/21 15:49 Ur Phencyclidine S crn Negative ng/mL (N egative) 07/05/21 15:49 Ur Amphetamines Sc reen Negative ng/mL (N egative) 07/05/21 15:49 U Benzodiazepines Scrn Negative ng/mL (N egative) 07/05/21 15:49 Urine Cocaine Scre en Negative ng/mL (N egative) 07/05/21 15:49 U Marijuana (THC) Screen Positive ng/mL (N egative) H 07/05/21 15:49 Ethyl Alcohol < 10 mg/dL (0-10) 07/05/21 14:35 Urine Ethyl Alcoho l Cancelled 07/05/21 15:42 Serum Ketones Negative (Negati ve) 07/05/21 14:35 Coronavirus 229E ( PCR) Not detected (NO T DETECT) 07/05/21 15:54 Hepatitis A IgM Ab Non-reactive (No nreactive) 07/05/21 14:35 Hep Bs Antigen Non-reactive (No nreactive) 07/05/21 14:35 Hep B Core IgM Ab Non-reactive (No nreactive) 07/05/21 14:35 Hepatitis C Antibo dy Non-reactive (No nreactive) 07/05/21 14:35 HIV 1&2 Ab & HIV 1 Ag Non-reactive (No n-Reactiv) 07/05/21 14:35 HIV 1&2 Antibody Non-reactive (No n-Reactiv) 07/05/21 14:35 SARS-CoV-2 (PCR) Not detected (NO T DETECT) 07/05/21 15:54 Misc Test Referenc e See comment 07/08/21 14:42 Vitals: Last Vital Signs Temp 98.7 F 07/13/21 05:42 Pulse 91 07/13/21 05:42 Resp 18 07/13/21 05:42 BP 135/88 07/13/21 05:42 Pulse Ox 96 07/12/21 19:39 Discharge Plan Discharge Patient Disposition: Home Condition: Stable Prescriptions: New olanzapine 10 mg Tablet 10 mg PO BID 30 Days Qty: 60 1RF Rx Instructions: twice a day aripiprazole 10 mg Tablet 10 mg PO DAILY 30 Days Qty: 30 1RF trazodone 50 mg Tablet 50 mg PO BEDTIME PRN (Reason: Insomnia) 30 Days Qty: 30 1RF Continued fluticasone propionate 50 mcg/actuation spray,suspension 1 spray intranasal BID PRN (Reason: Nasal Congestion) Qty: 16 3RF Rx Instructions: administer into each nostril dextromethorphan-guaifenesin 20-400 mg/5 mL liquid 5 ml PO Q6H PRN (Reason: cough) Qty: 120 0RF Prinivil 20 mg tablet 20 mg PO DAILY Qty: 30 5RF insulin asp prt-insulin aspart [Novolog Mix 70-30 U-100 Insuln] 100 unit/mL (70-30) solution 20 unit SUBCUT DAILY Qty: 10 5RF Protonix 40 mg tablet,delayed release (DR/EC) 40 mg PO DAILY Qty: 30 5RF buspirone 10 mg tablet 10 mg PO TID 30 Days Qty: 90 1RF Changed gabapentin 300 mg capsule 600 mg PO TID 30 Days Qty: 180 0RF Discharge Orders: Discharge Order (Routine); Ordered 07/13/21 Ordered By: Ramírez Prasad Referrals: [facility] [Outside] - 07/17/21 1:30 pm (Initial assessment and to sign up for the ERE Program.) Nba Rascon MD [Primary Care Provider] - Discharge Diet: Regular Discharge Activity: Resume usual activity Patient Instructions: Opioid Safety Discharge Attestations NPU Time Spent in Discharge Care*: less than 30 min Specific Discharge Activities: Specific discharge activities: educating patient, discussing with shelter case manager/social workers/dc planners, documenting/other paperwork and evaluating patient/reviewing data Status at Discharge: Cognitive status at discharge: cognitively intact , Behavioral status at discharge: cooperative , Coding Level of Care Code Acute Chg FW DC note Diagnoses Psychosis F29 Rhabdomyolysis M62.82 URI with cough and congestion J06.9 Decreased calculated GFR R94.4 CAD (coronary artery disease) I25.10 Anxiety and depression F41.9; F32.A Diabetes mellitus, with long-term current use of insulin E11.9; Z79.4 GERD (gastroesophageal reflux disease) K21.9 Essential hypertension I10 Methamphetamine abuse F15.10 DDD (degenerative disc disease), lumbosacral M51.37 Schizophrenia F20.9 Substance abuse F19.10 H/O heart valve replacement with bioprosthetic valve Z95.3
[2021-07-13 10:14] VITALS: BP 135/88; PULSE 91; RESP 18; TEMP 37.1
[2021-07-13] MEDS: linezolid 600 mg Tablet PO (10:17)
[2021-07-13] MEDS: pantoprazole DR 40 mg Tablet PO (10:18)
[2021-07-13] MEDS: ARIPiprazole 10 mg Tablet PO (10:18)
[2021-07-13] MEDS: gabapentin 300 mg Capsule PO (10:18)
[2021-07-13] MEDS: lisinopril 20 mg Tablet 10 MG PO (10:18)
[2021-07-13] MEDS: insulin aspart 70/30 100 units/1 mL 20 UNIT SUBCUT (10:19)
[2021-07-13] MEDS: BuSPIRONE 10 mg Tablet PO (10:20)
[2021-07-13] MEDS: insulin lispro 100 unit/1 mL SUBCUT (10:38)
[2021-07-13] MEDS: OLANZapine 10 mg TABLET PO (10:38)
== END 2021-07-13 10:48 | disposition home or self-care (01) | DRG 897 ==
LOC: ER 16:46 → ICU 18:21 → NP 07-08 20:47
PROVIDERS: Student in an Organized Health Care Education/Training Program; Admitting Provider Family Medicine; Emergency Provider Family Medicine; PCP Family Medicine Adult Medicine; Visit Provider Psychiatry & Neurology Psychiatry
DX: F15.159 Other stimulant abuse with stimulant-induced psychotic disorder, unspecified (principal); M62.82 Rhabdomyolysis; F32.2 Major depressive disorder, single episode, severe without psychotic features; E87.2 Acidosis; R45.851 Suicidal ideations; F20.9 Schizophrenia, unspecified; T41.295A Adverse effect of other general anesthetics, initial encounter; Y92.238 Other place in hospital as the place of occurrence of the external cause; F15.129 Other stimulant abuse with intoxication, unspecified; I10 Essential (primary) hypertension; R45.1 Restlessness and agitation; R45.850 Homicidal ideations; J06.9 Acute upper respiratory infection, unspecified; E11.9 Type 2 diabetes mellitus without complications; I25.10 Atherosclerotic heart disease of native coronary artery without angina pectoris; F41.9 Anxiety disorder, unspecified; K21.9 Gastro-esophageal reflux disease without esophagitis; B19.20 Unspecified viral hepatitis C without hepatic coma; E78.5 Hyperlipidemia, unspecified; R14.0 Abdominal distension (gaseous); M51.37 Other intervertebral disc degeneration, lumbosacral region; E66.9 Obesity, unspecified; B95.62 Methicillin resistant Staphylococcus aureus infection as the cause of diseases classified elsewhere; Z68.39 Body mass index [BMI] 39.0-39.9, adult; Z79.4 Long term (current) use of insulin; Z95.2 Presence of prosthetic heart valve; Z86.19 Personal history of other infectious and parasitic diseases; Z72.89 Other problems related to lifestyle; Z91.52 Personal history of nonsuicidal self-harm; Z91.14 Patient's other noncompliance with medication regimen; Z78.1 Physical restraint status; Z63.8 Other specified problems related to primary support group
CPT/HCPCS: 31500; 36415; 36416; 36600; 51702; 70450; 71045; 74018; 80051; 80053; 80061; 80074; 80306; 80307; 81001; 82009; 82140; 82330; 82550; 82803; 82805; 82962; 83036; 83605; 83721; 83735; 83880; 84100; 84145; 84443; 85025; 85610; 86140; 87040; 87070; 87077; 87186; 87205; 87635; 87806; 93005; 94002; 94003; 94799; 96365; 96366; 96367; 96372; 97150; 97165; 99291; 99292; A4570; C9113; J0330; J1200; J1630; J1650; J1815; J2060; J2250; J2543; J2704; J3010; J3486; J3490; J7030; J7050

== ENCOUNTER 2021-12-08 20:03 | Emergency (ER) | payer BC, MEDICAID, SELFPAY ==
[2021-12-08 20:19] VITALS: BP 142/88; PULSE 108; RESP 16; TEMP 36.6; O2SAT 95
--- NOTE | 2021-12-08 20:51 | W.ED.ANIMALB ---
HPI - Animal Bite General: Chief Complaint: Animal Bite Stated Complaint: animal bite, right hand Time Seen by Provider: 12/08/21 20:51 History of Present Illness: 51-year-old male patient comes in for injury to the right hand. Patient was washing his dog and cutting off mats from the dog's for when the dog bit his right hand. On exam patient has 2 puncture wounds 1 to the dorsal hand at the base of the third finger and one to the palmar hand in the same area. Patient has normal range of motion of the hand. Patient refused x-rays. Patient was concerned for infection and update in his tetanus shot. Patient has had a history of valvular heart disease secondary to an infection. Patient was not concerned about rabies for his pet. Review of Systems General: Reports: 10 or more systems reviewed and unremarkable except in HPI and below Card: Denies: chest pain Resp: Denies: dyspnea Musc: Reports: extremity pain Skin/Breast: Reports: new lesions PFS ED PFSH: Medical History (Updated 12/08/21 @ 21:10 by MIREILLE Law) Anxiety and depression Bowel obstruction CAD (coronary artery disease) Cellulitis and abscess of left leg Decreased calculated GFR Diabetes mellitus, with long-term current use of insulin GERD (gastroesophageal reflux disease) Hepatitis C History of bacterial endocarditis Homicidal ideation Hypertension Psychiatric care Septic arthritis due to Streptococcus species Suicidal ideation URI with cough and congestion Surgical History (Updated 07/06/21 @ 06:37 by Viet Izaguirre DO) History of aortic valve replacement with bioprosthetic valve History of heart valve replacement History of mitral valve replacement with bioprosthetic valve Family History Other Diabetes No significant family history Social History Smoking and tobacco status: unknown if ever smoked Alcohol intake: current Alcohol intake frequency: holidays/special occasions only Housing: Other Details: Homeless Current occupational status: unemployed Physical Exam Const: COMMON NORMALS: alert HENMT: COMMON NORMALS: normocephalic HEAD & SCALP: normocephalic Neck/C-Spine: COMMON NORMALS: full ROM Resp: COMMON NORMALS: normal respiratory effort and clear to auscultation bilaterally AUSCULTATION: clear to auscultation bilaterally Cardio: COMMON NORMALS: regular rate and regular rhythm RATE: regular rate RHYTHM: regular rhythm Extremity: RIGHT UPPER EXTREMITY: Yes hand & digits (Dorsal and palmar puncture wounds to the hand with abrasions.) Right hand and digits: Yes inspection, Yes palpation and Yes ROM exam Neuro: SENSORIUM/ORIENTATION: Yes alert Skin: TRAUMA: puncture (Puncture wounds to the dorsal and palmar right hand.) Course Vital Signs: Vital signs: Vital Signs Temperature 97.9 F 12/08/21 20:19 Pulse Rate 108 H 12/08/21 20:19 Respiratory Rate 16 12/08/21 20:19 Blood Pressure 142/88 12/08/21 20:19 Pulse Oximetry 95 12/08/21 20:19 MDM - Animal Bite Medical Decision Making Patient came in for evaluation of wounds secondary to dog bite to his right hand. On exam patient has 2 puncture wounds and several abrasions to the dorsal hand and palmar hand. Patient has normal range of motion of the hand. Patient refused x-rays for evaluation of bony structures. Wounds were cleaned with Betadine and debrided. Differential diagnosis includes but not limited to foreign body, fracture, laceration, need for tetanus, need for rabies prophylaxis therapy. Wounds were cleaned thoroughly and evaluated with no signs of foreign body or fracture noted in the wound or along the wounds. Patient had good range of motion of the hand. Reviewed exam with patient with recommendations for updating tetanus and the risk and benefits of rabies postexposure prophylaxis therapy. Patient opted to monitor his pat and will return if the dog becomes ill. Patient was started on Levaquin due to his allergy to penicillins for prophylaxis therapy. Patient's tetanus was updated. Discharge Plan Discharge Patient Disposition: Home Clinical Impression: Dog bite of hand Qualifiers: Encounter type: initial encounter Laterality: right Qualified Code(s): S61.451A - Open bite of right hand, initial encounter Condition: Stable Prescriptions: New levofloxacin 500 mg tablet 500 mg PO DAILY 7 Days Qty: 7 0RF No Action fluticasone propionate 50 mcg/actuation spray,suspension 1 spray intranasal BID PRN (Reason: Nasal Congestion) Qty: 16 3RF Rx Instructions: administer into each nostril dextromethorphan-guaifenesin 20-400 mg/5 mL liquid 5 ml PO Q6H PRN (Reason: cough) Qty: 120 0RF Prinivil 20 mg tablet 20 mg PO DAILY Qty: 30 5RF Protonix 40 mg tablet,delayed release (DR/EC) 40 mg PO DAILY Qty: 30 5RF gabapentin 300 mg capsule 600 mg PO TID 30 Days Qty: 180 1RF insulin asp prt-insulin aspart [Novolog Mix 70-30 U-100 Insuln] 100 unit/mL (70-30) solution 20 unit SUBCUT DAILY Qty: 10 5RF (DME) insulin syringe-needle U-100 [BD Insulin Syringe Ultra-Fine] 1 mL 30 gauge x 1/2 syringe See Rx Instructions .Route Qty: 500 0RF Rx Instructions: As directed, administer insulin once, daily. olanzapine 10 mg Tablet 10 mg PO BID 30 Days Qty: 60 1RF Rx Instructions: twice a day aripiprazole 10 mg Tablet 10 mg PO DAILY 30 Days Qty: 30 1RF trazodone 50 mg Tablet 50 mg PO BEDTIME PRN (Reason: Insomnia) 30 Days Qty: 30 1RF buspirone 10 mg tablet 10 mg PO TID 30 Days Qty: 90 1RF Discharge Orders: Discharge ED (Routine); Ordered 12/08/21 Ordered By: Magen Zuleta Referrals: Nba Rascon MD [Primary Care Provider] - Discharge Diet: Usual diet Discharge Activity: Increase activity as tolerated Patient Instructions: Animal Bite (ED) Activity Restrictions/Additional Instructions: Take antibiotics as directed for the next 7 days. Drink plenty water with antibiotic. Use acetaminophen or ibuprofen for pain. Keep wound as dry as possible especially for the next 48 hours. Follow-up with primary care for further instructions. Return to ER for new concerns. Monitor your pet for the next 10 days if he becomes iill have him seen by a and rescue fire fighter crash fire for further evaluation then return to the ER for initiation of rabies vaccine protocol. Coding Level of Care Code ED Wool Grower for Janis Barakat
[2021-12-08] MEDS: levoFLOXacin 500 mg Tablet PO (21:16)
[2021-12-08] MEDS: tetanus-dipt-pertussis 0.5 mL SDV IM (21:18)
== END 2021-12-08 21:40 | disposition home or self-care (01) ==
PROVIDERS: Emergency Provider Nurse Practitioner Family; PCP Family Medicine Adult Medicine
DX: S61.451A Open bite of right hand, initial encounter (principal); W54.0XXA Bitten by dog, initial encounter; Z79.4 Long term (current) use of insulin; I25.10 Atherosclerotic heart disease of native coronary artery without angina pectoris; E11.9 Type 2 diabetes mellitus without complications; Z86.19 Personal history of other infectious and parasitic diseases; I10 Essential (primary) hypertension; Z23 Encounter for immunization
CPT/HCPCS: 90471; 90715; 99283

== ENCOUNTER 2022-04-24 13:19 | Inpatient (IN) | payer BC, SELFPAY ==
[2022-04-24] VITALS (24 sets, daily range): BP systolic 94–195; BP diastolic 52–135; PULSE 77–113; RESP 16–24; TEMP 36.6; O2SAT 93–100; BMI 37.2
[2022-04-24] MEDS: LORazepam 2 mg/mL INJ 1 mL IM (13:44)
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
[2022-04-24 14:47] LABS: Basophils % 0.2 %; Eosinophils % 0.2 %; Hematocrit 47.5 % (42.0-52.0); Hemoglobin 15.9 g/dL (11.7-16.6); Lymphocytes # 2.2 10^3/uL (0.8-4.8); Mean Corpuscular HGB Conc 33.5 g/dL (30.0-36.0); Mean Corpuscular Hemoglobin 30.2 pg (28.0-34.0); Mean Corpuscular Volume 90.3 fl (80-94); Monocytes # 0.6 10^3/uL (0.2-0.9); Monocytes % 4.7 %; Neutrophils # 9.24 10^3/uL (1.8-7.7); Neutrophils % 76.2 %; Nucleated Red Blood Cells % 0 %; Platelet Count 283 10^3/cmm (130-400); Red Blood Count 5.26 10^6/uL (4.1-5.3); Red Cell Distribution Width 12.4 % (12.1-15.1); White Blood Count 12.1 10^3/uL (4.0-10.0)
[2022-04-24] MEDS: LORazepam 2 mg/mL INJ 1 mL 4 MG IM (14:50)
[2022-04-24] MEDS: ziprasidone 20 mg/mL SDV IM (14:50)
[2022-04-24 14:54] LABS: Alanine Aminotransferase 15 U/L (0-41); Albumin Level 4.7 g/dL (3.5-5.2); Alcohol Level 82 mg/dL (0-10); Alkaline Phosphatase 100 U/L (40-130); Anion Gap 23.6 (5-19); Aspartate Amino Transferase 17 U/L (0-40); Blood Urea Nitrogen 22 mg/dL (6-20); Calcium 9.1 mg/dL (8.5-10.5); Carbon Dioxide 16 mmol/L (22-29); Chloride 102 mmol/L (98-107); Globulin 3.1 g/dL (1.3-4.6); Glomerular Filtration Rate 79.1 mL/min (90-130); Glucose 241 mg/dL (65-115); Osmolality Calculated 297 mOsm/kg (285-295); Potassium 3.6 mmol/L (3.5-5.1); Sodium 138 mmol/L (136-145); Total Bilirubin 0.3 mg/dL (0.15-1.2); Total Protein 7.8 g/dL (6.6-8.7)
[2022-04-24 14:59] LABS: Acetaminophen < 5.0 ug/mL (10-30); Salicylate < 0.3 mg/dL (3-10)
--- NOTE | 2022-04-24 15:45 | XRR_ITS ---
PROCEDURE INFORMATION: Exam: XR Chest Exam date and time: 04/24/2022 5:11 PM Age: 52 years old Clinical indication: Cough and dyspnea; Additional info: Dyspnea/cough TECHNIQUE: Imaging protocol: Radiologic exam of the chest. Views: 1 view. COMPARISON: CR (CHEST, ) 07/08/2021 5:12 AM FINDINGS: Lungs: Unremarkable. No consolidation. Pleural spaces: Unremarkable. No pleural effusion. No pneumothorax. Heart/Mediastinum: Unremarkable. No cardiomegaly. Bones/joints: Sternotomy wires noted. Visualized osseous structures are intact. XR/XR chest 1V portable [id number] IMPRESSION: No acute findings.
--- NOTE | 2022-04-24 15:49 | PC.RESP ---
32 nasal trumpet placed in the left nare
--- NOTE | 2022-04-24 16:14 | PC.PHAR ---
UNABLE TO VERIFY MEDICATIONS WITH PT-PTS PHARMACY IS CLOSED TODAY ON THANKSGIVING NO WAY TO VERIFY LAST FILLED MEDICATION AND DATES-EXT MED HISTORY SHOWS MOST RECENT THING FILLED Jun-LEFT MEDICATIONS UNVERIFIED THAT WERE ON PREVIOUS ENTERED MED LIST DUE TO PHARMACY BEING CLOSED-
--- NOTE | 2022-04-24 16:30 | ED_ITS ---
HPI - Overdose General: Chief Complaint: Overdose Stated Complaint: SI Time Seen by Provider: 04/24/22 13:21 Source: EMS Mode of arrival: EMS History of Present Illness: 52-year-old male presents to the ER via EMS. He is not able to provide any history. Per EMS crew's been on five 6-day baum of heroin and methamphetamine. I did seen this patient in July of this year under similar circumstances. At that time and as well today he received ketamine in the field which caused him to hallucinate but did not really have an y significant sedative effect. On arrival here he was [id number] hallucinating and screaming got worse with ketamine. On arrival here would recognize him from his previous history did not give any further ketamine initially seen by midlevel given Ativan however was not very effective he was gi kenrick a large dose of 4 mg which did effectively sedate him and kept him from further hallucinating or acting out. He was immediately hard restrained as he got here because of his erratic behavior and his hallucinations and screaming out he was at great risk to himself and others. Previously the patient had gone into rhabdomyolysis in July onto the similar conditions. Onset (ago): day(s) Intent: suicide attempt Context: Intentional Overdose: drug/ETOH problems Associated symptoms: hallucinations Treatments Prior to Arrival: other (Ketamine) Review of Systems General: Reports: ROS unobtainable due to mental status [facility] ED PFSH: Medical History Anxiety and depression Bowel obstruction CAD (coronary artery disease) Cellulitis and abscess of left leg Diabetes mellitus, with long-term current use of insulin Essential hypertension GERD (gastroesophageal reflux disease) Hepatitis C History of bacterial endocarditis Homicidal ideation Psychiatric care Psychosis Respiratory failure Septic arthritis due to Streptococcus species Suicidal ideation Surgical History History of aortic valve replacement with bioprosthetic valve History of heart valve replacement History of mitral valve replacement with bioprosthetic valve Family History Other Diabetes No significant family history Social History Smoking and tobacco status: unknown if ever smoked Alcohol intake: current Alcohol intake frequency: holidays/special occasions only Housing: Other Details: Homeless Current occupational status: unemployed Physical Exam Const: COMMON NORMALS: no acute distress GENERAL APPEARANCE: cooperative and comfortable ORIENTATION/CONSCIOUSNESS: Yes awake HENMT: COMMON NORMALS: normocephalic and atraumatic HEAD & SCALP: normocephalic and atraumatic Resp: COMMON NORMALS: normal respiratory effort, No retractions, No use of accessory muscles and clear to auscultation bilaterally AUSCULTATION: clear to auscultation bilaterally Cardio: COMMON NORMALS: regular rate, regular rhythm and No murmurs present (Cardio) RATE: regular rate RHYTHM: regular rhythm GI: COMMON NORMALS: Soft to palpation and No hepatosplenomegaly present AUSCULTATION: Yes normoactive bowel sounds PALPATION: Yes Soft to palpation, No Tenderness to palpation present (GI), No Guarding due to palpation present (GI) and Yes No hepatosplenomegaly present Extremity: COMMON NORMALS: normal to inspection, capillary refill normal, no clubbing, cyanosis or edema, no calf tenderness and no pedal edema Skin: COMMON NORMALS: no rashes or lesions noted GENERAL SKIN EXAM: no rashes or lesions noted Course Vital Signs: Vital signs: Vital Signs Temperature 98 F 04/24/22 13:29 Pulse Rate 93 04/24/22 18:03 Respiratory Rate 16 04/24/22 18:03 Blood Pressure 176/120 04/24/22 18:03 Pulse Oximetry 96 04/24/22 18:03 Oxygen Delivery Me thod 04/24/22 18:03 Oxygen Flow Rate 3 04/24/22 18:03 MDM - Overdose Medical Decision Making After 4 mg of Ativan patient was significantly sedated when given had to put him into Trendelenburg position with head of the bed elevated with a nasal trumpet with oxygen support his vital signs remained good. My concern was that if he had continued on the previous trajectory he would have gone rhabdomyolysis which required us to intubate him. We were able to avoid this with a heavy dose of Ativan and the supportive cares. When the Ativan began to wear off I had hoped that the patient would be calm enough we could admit him to psychiatry but he began hallucinating again when he was given 2 mg Ativan and started on a Versed drip talked to Dr. Arreola who is on-call for psychiatry and also talk to Dr. Ward who is on-call for the hospitalist I think at this point the best plan will be to admit him to the ICU due to ICU and keep him sedated to allow medications to be initiated in the side sedation to be weaned off this worked well last time however he required very high doses of medications. Dr. Arreola and Dr. Corrales in agreement orders have been written. Medical Records I reviewed the patient's medical records. Lab Data I reviewed the patient's lab results. 04/24/22 14:25 04/24/22 14:25 Radiology Impressions Chest X-Ray 04/24/22 15:45 IMPRESSION: No acute findings. Laboratory Results WBC 12.1 10^3/uL (4.0-10.0) H 04/24/22 14:25 RBC 5.26 10^6/uL (4.1-5.3) 04/24/22 14:25 Hgb 15.9 g/dL (11.7-16.6) 04/24/22 14:25 Hct 47.5 % (42.0-52.0) 04/24/22 14:25 MCV 90.3 fl (80-94) 04/24/22 14:25 MCH 30.2 pg (28.0-34.0) 04/24/22 14:25 MCHC 33.5 g/dL (30.0-36.0) 04/24/22 14:25 RDW 12.4 % (12.1-15.1) 04/24/22 14:25 Plt Count 283 10^3/cmm (130-400) 04/24/22 14:25 MPV 10.0 fL (7.4-10.4) 04/24/22 14:25 Neut % (Auto) 76.2 % 04/24/22 14:25 Lymph % (Auto) 18.0 % 04/24/22 14:25 Grady % (Auto) 4.7 % 04/24/22 14:25 Eos % (Auto) 0.2 % 04/24/22 14:25 Baso % (Auto) 0.2 % 04/24/22 14:25 Neut # (Auto) 9.24 10^3/uL (1.8-7.7) H 04/24/22 14:25 Lymph # (Auto) 2.2 10^3/uL (0.8-4.8) 04/24/22 14:25 Grady # (Auto) 0.6 10^3/uL (0.2-0.9) 04/24/22 14:25 Eos # (Auto) 0.0 10^3/uL (0.0-0.8) 04/24/22 14:25 Baso # (Auto) 0.0 10^3/uL (0.0-0.1) 04/24/22 14:25 Nucleated RBC % (auto) 0 % 04/24/22 14:25 Nucleated RBCs # 0.0 /100WBC 04/24/22 14:25 Sodium 138 mmol/L (136-145) 04/24/22 14:25 Potassium 3.6 mmol/L (3.5-5.1) 04/24/22 14:25 Chloride 102 mmol/L (98-107) 04/24/22 14:25 Carbon Dioxide 16 mmol/L (22-29) L 04/24/22 14:25 Anion Gap 23.6 (5-19) H 04/24/22 14:25 BUN 22 mg/dL (6-20) H 04/24/22 14:25 Creatinine 1.0 mg/dL (0.7-1.2) 04/24/22 14:25 GFR Calculation 79.1 mL/min (90-130) L 04/24/22 14:25 Glucose 241 mg/dL (65-115) H 04/24/22 14:25 Calculated Osmolality 297 mOsm/kg (285-295) H 04/24/22 14:25 Calcium 9.1 mg/dL (8.5-10.5) 04/24/22 14:25 Total Bilirubin 0.3 mg/dL (0.15-1.2) 04/24/22 14:25 AST 17 U/L (0-40) 04/24/22 14:25 ALT 15 U/L (0-41) 04/24/22 14:25 Alkaline Phosphatase 100 U/L (40-130) 04/24/22 14:25 Total Protein 7.8 g/dL (6.6-8.7) 04/24/22 14:25 Albumin 4.7 g/dL (3.5-5.2) 04/24/22 14:25 Globulin 3.1 g/dL (1.3-4.6) 04/24/22 14:25 Urine Color Yellow (Yellow) 04/24/22 16:50 Urine Appearance Hazy (CLEAR) A 04/24/22 16:50 Urine pH 5 (5-7) 04/24/22 16:50 Ur Specific [place] 1.020 (1.005-1.030) 04/24/22 16:50 Urine Protein 1+ (Negative) H 04/24/22 16:50 Urine Glucose (UA) 4+ (Normal) H 04/24/22 16:50 Urine Ketones 1+ (Negative) H 04/24/22 16:50 Urine Blood 2+ (Negative) H 04/24/22 16:50 Urine Nitrate Negative (Negative) 04/24/22 16:50 Urine Bilirubin Neg (Negative) 04/24/22 16:50 Urine Urobilinogen Neg mg/dL (Negative) 04/24/22 16:50 Ur Leukocyte Esterase Negative (Negative) 04/24/22 16:50 Urine RBC 0-4 /hpf (0-2) H 04/24/22 16:50 Urine WBC None /hpf (0-5) 04/24/22 16:50 Ur Squamous Epith Cells Rare /hpf (0-5) 04/24/22 16:50 Amorphous Sediment 2+ /hpf 04/24/22 16:50 Urine Bacteria Trace /hpf (NONE) 04/24/22 16:50 Urine Mucus 2+ /hpf 04/24/22 16:50 Salicylates < 0.3 mg/dL (3-10) L 04/24/22 14:25 Urine Opiates Screen Negative ng/mL (Negative) 04/24/22 16:50 Acetaminophen < 5.0 ug/mL (10-30) L 04/24/22 14:25 Ur Barbiturates Screen Negative ng/mL (Negative) 04/24/22 16:50 Ur Phencyclidine Scrn Negative ng/mL (Negative) 04/24/22 16:50 Ur Amphetamines Screen Positive ng/mL (Negative) H 04/24/22 16:50 U Benzodiazepines Scrn Positive ng/mL (Negative) H 04/24/22 16:50 Urine Cocaine Screen Negative ng/mL (Negative) 04/24/22 16:50 U Marijuana (THC) Screen Positive ng/mL (Negative) H 04/24/22 16:50 Ethyl Alcohol 82 mg/dL (0-10) H 04/24/22 14:25 Discharge Plan Discharge Condition: Stable Prescriptions: No Action fluticasone propionate 50 mcg/actuation spray,suspension 1 spray intranasal BID PRN (Reason: Nasal Congestion) Qty: 16 3RF Rx Instructions: administer into each nostril Prinivil 20 mg tablet 20 mg PO DAILY Qty: 30 5RF Protonix 40 mg tablet,delayed release (DR/EC) 40 mg PO DAILY Qty: 30 5RF gabapentin 300 mg capsule 600 mg PO TID 30 Days Qty: 90 0RF insulin asp prt-insulin aspart [Novolog Mix 70-30 U-100 Insuln] 100 unit/mL (70-30) solution 20 unit SUBCUT DAILY Qty: 10 5RF (DME) insulin syringe-needle U-100 [BD Insulin Syringe Ultra-Fine] 1 mL 30 gauge x 1/2 syringe See Rx Instructions .Route Qty: 500 0RF Rx Instructions: As directed, administer insulin once, daily. olanzapine 10 mg Tablet 10 mg PO BID 30 Days Qty: 60 1RF Rx Instructions: twice a day aripiprazole 10 mg Tablet 10 mg PO DAILY 30 Days Qty: 30 1RF trazodone 50 mg Tablet 50 mg PO BEDTIME PRN (Reason: Insomnia) 30 Days Qty: 30 1RF buspirone 10 mg tablet 10 mg PO TID 30 Days Qty: 90 1RF Referrals: Nba Rascon MD [Primary Care Provider] - Coding Level of Care Code ED Inoculator for Janis Barakat
[2022-04-24] MEDS: sodium chloride 0.9% 1,000 ML 999 ML IV ×2 (17:11→21:32)
--- NOTE | 2022-04-24 17:11 | ECG_ITS ---
[facility] Test Date: 2022-04-24 Pat Name: Shree Hickman Department: Room: Gender: Male Automation Consultant: : 1970 Requested By: Viet Gomez Order Number: [id number] Charlie MD: Deny Denny M.D. Measurements Intervals [place] Rate: 86 P: 56 ID: [id number] QRS: 41 QRSD: 94 T: 76 QT: 360 QTc: 432 Interpretive Statements SINUS RHYTHM POSSIBLE LEFT ATRIAL ENLARGEMENT [-0.1mV P-WAVE IN V1/V2] POSSIBLE ANTERIOR MYOCARDIAL INFARCTION , OF INDETERMINATE AGE [30 ms Q WAVE IN V3/V4, OR R < 0.2 mV IN V4] Compared to ECG 07/05/2021 15:35:53 Sinus tachycardia no longer present Myocardial infarct finding still present Electronically Signed On 04-25-2022 11:10:21 VICE PRESIDENT OF COMMUNICATIONS by Deny Denny M.D. [id number]
[2022-04-24 17:19] LABS: Add Urine Microscopic? YES; Bilirubin Urine Neg (Negative); Blood Urine 2+ (Negative); Glucose Urine UA 4+ (Normal); Ketones Urine 1+ (Negative); Leukocyte Esterase Urine Negative (Negative); Nitrate Urine Negative (Negative); Protein Urine 1+ (Negative); Urine Appearance Hazy (CLEAR); Urine Color Yellow (Yellow); Urobilinogen Urine Neg (Negative); pH Urine 5 (5-7)
[2022-04-24 17:28] LABS: Amphetamines Screen Urine Positive (Negative); Barbiturates Screen Urine Negative (Negative); Benzodiazepines Screen Urine Positive (Negative); Cocaine Screen Urine Negative (Negative); Opiate Screen Urine Negative (Negative); PCP Screen Urine Negative (Negative); THC Screen Urine Positive (Negative)
[2022-04-24 17:31] LABS: Add Urine Culture? No; Amorphous Sediment Urine 2+ /hpf; Bacteria Urine TRACE /hpf; Mucus Urine 2+ /hpf; RBC Urine 0-4 /hpf (0-2); Squamous Epithelial Cell Urine RARE /hpf (0-5)
[2022-04-24] MEDS: LORazepam 2 mg/mL INJ 1 mL IVP (17:48)
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
[2022-04-24 18:57] LABS: Influenza A by IFA negative (Negative); Influenza B by IFA negative (Negative)
--- NOTE | 2022-04-24 20:19 | XRR_ITS ---
PROCEDURE INFORMATION: Exam: XR Chest Exam date and time: 04/24/2022 8:17 PM Age: 52 years old Clinical indication: Device placement; Ett placement (vent status); Additional info: Intubation TECHNIQUE: Imaging protocol: Radiologic exam of the chest. Views: 1 view. COMPARISON: CR (CHEST, ) 04/24/2022 5:11 PM FINDINGS: Tubes, catheters and devices: Endotracheal tube terminates 3 cm above the gabriel. Lungs: Unremarkable. No consolidation. Pleural spaces: Unremarkable. No pleural effusion. No pneumothorax. Heart/Mediastinum: Unremarkable. No cardiomegaly. Bones/joints: Sternotomy wires noted. Visualized osseous structures are intact. XR/XR chest 1V portable [id number] IMPRESSION: Proper positioning of support apparatus.
[2022-04-24] MEDS: propofol 1,000 MG/100 ML INJ 20 MG IV (20:25)
[2022-04-24 21:07] LABS: Basophils % 0.3 %; Hematocrit 48.8 % (42.0-52.0); Hemoglobin 15.8 g/dL (11.7-16.6); Lymphocytes # 1.9 10^3/uL (0.8-4.8); Lymphocytes % 15.6 %; Mean Corpuscular HGB Conc 32.4 g/dL (30.0-36.0); Mean Corpuscular Hemoglobin 30.5 pg (28.0-34.0); Mean Corpuscular Volume 94.2 fl (80-94); Mean Platelet Volume 9.9 fL (7.4-10.4); Monocytes # 0.4 10^3/uL (0.2-0.9); Monocytes % 3.6 %; Neutrophils # 9.54 10^3/uL (1.8-7.7); Nucleated Red Blood Cells % 0 %; Platelet Count 220 10^3/cmm (130-400); Red Blood Count 5.18 10^6/uL (4.1-5.3); Red Cell Distribution Width 12.6 % (12.1-15.1); White Blood Count 11.9 10^3/uL (4.0-10.0)
[2022-04-24 21:07] LABS: ABG PCO2 44.7 mmHg (35-45); ABG PH Result 7.24 (7.35-7.45); Alveolar-Arterial Oxygen Gradi 15.6 mmHg (5-10); Arterial Blood Gas Hematocrit 43.2 % (42-52); Base Excess ABG -8.4 mmol/L (-2.0-2.0); Blood Gas Allen Test Pos; Blood Gas Sample Site Radial, right; Blood Gas Sample Type Arterial; Carboxyhemoglobin < 0.0 %THgb (0.4-20.1); HGB O2 Sat 97.9 % (95-100); Ionized Calcium Level - ABG 1.1 mmol/L (1.1-1.4); Methemoglobin 0.9 % (0.4-1.5); Oxygen Device VENT; Oxygen Saturation ABG 98.4; Potassium Level - ABG 4.3 mmol/L (3.5-5.0); Total Hemoglobin 14.1 g/dL (14-18)
[2022-04-24 21:08] LABS: Ketone (Acetest) Serum Negative (Negative)
[2022-04-24 21:13] LABS: Alanine Aminotransferase 15 U/L (0-41); Albumin Level 4.5 g/dL (3.5-5.2); Alkaline Phosphatase 94 U/L (40-130); Anion Gap 19.3 (5-19); Aspartate Amino Transferase 17 U/L (0-40); Blood Urea Nitrogen 21 mg/dL (6-20); Calcium 8.6 mg/dL (8.5-10.5); Carbon Dioxide 17 mmol/L (22-29); Chloride 102 mmol/L (98-107); Globulin 3.1 g/dL (1.3-4.6); Glomerular Filtration Rate 102.3 mL/min (90-130); Glucose 249 mg/dL (65-115); Magnesium 1.6 mg/dL (1.7-2.3); Osmolality Calculated 289 mOsm/kg (285-295); Potassium 4.3 mmol/L (3.5-5.1); Sodium 134 mmol/L (136-145); Total Bilirubin 0.3 mg/dL (0.15-1.2); Total Protein 7.6 g/dL (6.6-8.7)
[2022-04-24 21:14] LABS: Lactic Sepsis W/Reflex 1.8 mmol/L (0.5-2.2)
[2022-04-24 21:16] LABS: Creatine Phosphokinase 419 U/L (39-308)
[2022-04-24 21:17] LABS: Glucose Point of Care 250 mg/dL (70-110)
[2022-04-24] MEDS: propofol 10 mg/mL SDV 20 mL 100 MG IVP (21:37)
[2022-04-24] MEDS: succinylcholine 20 mg/mL SDV 10mL 120 MG IVP (21:38)
[2022-04-24] MEDS: aztreonam 1,000 MG in sodium chloride 0.9% (plus) 50 ML 100 MG IV (21:48)
[2022-04-24] MEDS: sodium chloride 0.9% 1,000 ML 100 ML IV (21:48)
[2022-04-24] MEDS: heparin 5,000 unit/mL INJ 1 mL 5000 UNIT SUBCUT (21:48)
[2022-04-24] MEDS: vancomycin 1,500 MG/300 ML PIGGYBACK 200 MG IV (21:56)
[2022-04-24 23:53] LABS: Charge for UA Resulting for Rev
[2022-04-25] VITALS (53 sets, daily range): BP systolic 85–132; BP diastolic 50–79; PULSE 71–82; RESP 16–17; TEMP 37.2–37.7; O2SAT 92–97
[2022-04-25] LABS: Add Urine Microscopic? YES; Bilirubin Urine Neg (Negative); Blood Urine Neg (Negative); Glucose Urine UA 1+ (Normal); Ketones Urine 2+ (Negative); Leukocyte Esterase Urine Negative (Negative); Nitrate Urine Negative (Negative); Protein Urine 1+ (Negative); Specific Gravity, Urine 1.025 (1.005-1.030); Urine Appearance Clear (CLEAR); Urine Color Yellow (Yellow); Urobilinogen Urine Norm (Negative); pH Urine 5 (5-7)
--- NOTE | 2022-04-25 00:08 | PC.NURSE ---
Patient admitted with 96 hour hold for SI and OD. Patient refuses to answer questions appropriately. Patient was later intubated and unable to answer questions.
--- NOTE | 2022-04-25 00:42 | XRR_ITS ---
PROCEDURE INFORMATION: Exam: XR Chest Exam date and time: 04/25/2022 1:32 AM Age: 52 years old Clinical indication: Device placement; Ng tube; Additional info: Og tube placement TECHNIQUE: Imaging protocol: Radiologic exam of the chest. Views: 1 view. COMPARISON: CR XR chest 1V portable [id number] 04/24/2022 8:17 PM FINDINGS: Tubes, catheters and devices: Endotracheal tube tip 3 cm above the gabriel. Enteric tube tip below the diaphragm in the region the gastric bubble. Lungs: Right hilar to lower lobe atelectasis versus minimal infiltrate. Pleural spaces: Unremarkable. No pleural effusion. No pneumothorax. Heart/Mediastinum: Cardiomegaly and pulmonary vascular congestion. Bones/joints: Sternotomy wires. XR/XR chest 1V portable [id number] IMPRESSION: 1. Endotracheal tube tip 3 cm above the gabriel. 2. Enteric tube tip below the diaphragm in the region the gastric bubble. 3. Cardiomegaly and pulmonary vascular congestion. 4. Right hilar to lower lobe atelectasis versus minimal infiltrate. 5. Sternotomy wires.
--- NOTE | 2022-04-25 00:43 | PC.NURSE ---
Patient admitted to ICU 11 from Emergency Department at 1905 04/24/2022. Patient transferred on stretcher on portable telemetry accompanied by RN, Nurse Tech, and security. Patient was in 4 point violent restraints thrashing in bed and attempting to cause harm to staff members. Versed drip infusing at 1mg/hr. Patient continued to thrash in bed causing an IV to come out. Nasal trumpet in place with nasal cannula at 3 liters. Several attempts were made by nursing staff to insert a new IV. Attempts were unsuccessful. Patient was yelling profanity and head butting staff members. Patient refused to answer nurses questions for admission. ER physician and footwear sales leader at bedside. Decision was made to intubate patient for the safety of staff members and the patient. Verbal orders given by Dr. Izaguirre for sedation and paralyzing agents. See mar for details. Patient intubated at 20:05. Once intubated patient became diaphoretic with rigors. Verbal order for Propofol 100mg IVP. Verbal order received for soft restraints on bilateral upper and lower extremity. 4 point violent restraints removed at 20:15. Soft restraints applied.
[2022-04-25] MEDS: propofol 1,000 MG/100 ML INJ 16.67 MG IV ×2 (01:22→07:30)
[2022-04-25 02:38] LABS: ABG PCO2 41.9 mmHg (35-45); ABG PH Result 7.31 (7.35-7.45); Base Excess ABG -5.2 mmol/L (-2.0-2.0); Blood Gas Allen Test Pos; Blood Gas Sample Type Arterial; HCO3 ABG 20.9 mmol/L (22-26); PO2 ABG 72.2 mmHg (80.0-100.0)
[2022-04-25 02:47] LABS: Blood Gas Sample Site Radial, right; Oxygen Device VENT
[2022-04-25 03:49] LABS: Glucose Point of Care 160 mg/dL (70-110)
[2022-04-25 04:13] LABS: Basophils % 0.2 %; Eosinophils % 0.1 %; Hematocrit 39.7 % (42.0-52.0); Hemoglobin 12.7 g/dL (11.7-16.6); Lymphocytes # 1.9 10^3/uL (0.8-4.8); Lymphocytes % 21.1 %; Mean Corpuscular Volume 93.6 fl (80-94); Mean Platelet Volume 9.9 fL (7.4-10.4); Monocytes # 0.5 10^3/uL (0.2-0.9); Monocytes % 5.6 %; Neutrophils % 72.6 %; Nucleated Red Blood Cells % 0 %; Platelet Count 211 10^3/cmm (130-400); Red Blood Count 4.24 10^6/uL (4.1-5.3); Red Cell Distribution Width 12.9 % (12.1-15.1); White Blood Count 9.1 10^3/uL (4.0-10.0)
[2022-04-25 04:30] LABS: Alanine Aminotransferase 12 U/L (0-41); Albumin Level 3.9 g/dL (3.5-5.2); Alkaline Phosphatase 76 U/L (40-130); Anion Gap 16.9 (5-19); Aspartate Amino Transferase 13 U/L (0-40); Blood Urea Nitrogen 22 mg/dL (6-20); Calcium 8.1 mg/dL (8.5-10.5); Carbon Dioxide 19 mmol/L (22-29); Chloride 107 mmol/L (98-107); Globulin 2.5 g/dL (1.3-4.6); Glomerular Filtration Rate 89.3 mL/min (90-130); Glucose 162 mg/dL (65-115); Osmolality Calculated 295 mOsm/kg (285-295); Potassium 3.9 mmol/L (3.5-5.1); Sodium 139 mmol/L (136-145); Total Bilirubin 0.3 mg/dL (0.15-1.2); Total Protein 6.4 g/dL (6.6-8.7)
[2022-04-25 06:02] LABS: Glucose Point of Care 136 mg/dL (70-110)
--- NOTE | 2022-04-25 06:44 | PC.NURSE ---
Unable to read patient rights for 96 hour hold. Patient was confused and hallucinating. Patients rights at bedside. Will read rights when appropriate.
[2022-04-25] MEDS: sodium chloride 0.9% 1,000 ML 100 ML IV (08:00)
--- NOTE | 2022-04-25 08:43 | CT_ITS ---
WS: [id number] CT CHEST, ABDOMEN AND PELVIS WITHOUT CONTRAST HISTORY: drank gasoline TECHNIQUE: Contiguous 5 mm axial imaging performed through the chest, abdomen and pelvis without IV c ontrast, oral contrast has not been provided. Coronal and sagittal reformats chest. Coronal and sagit sakshi reformats through the abdomen and pelvis. All CT scans at [facility] use at least one of these dose optimization techniques: automated exposure control; mA and/or kV adjustment per patient s ize (includes targeted exams where dose is matched to clinical indication); or iterative reconstructi on. CONTRAST: None DLP: 1333.80 mGy.cm COMPARISON: 03/12/2021 Artifact through the thorax and abdomen by patient's arms. Chest CT: Endotracheal tube and nasogastric tubes are in good position. Prior median sternotomy. Qual ity is significantly compromised by breathing and motion artifact. Lung volumes are decreased. Dense areas of consolidation lower lobes bilaterally, greatest on the LEFT. No significant effusions. No pn eumothorax. Mild prominence of the pulmonary markings due to poor inspiration. Mild atherosclerosis a elan. Very small amount of air in the pulmonary arteries probably due to IV manipulation. Abdomen CT: Moderately distended gallbladder. Significant artifact through the visceral organs of the abdomen. Liver is very slightly enlarged. Spleen is also enlarged at 14.3 cm. Negative pancreas and adrenal glands. No renal obstruction. Mild bilateral perinephric stranding. Mild atherosclerosis of a elan. No adenopathy or ascites. No free air. No GI tract obstruction. No ischemic changes are identified. Normal appendix. Pelvic CT: No free fluid or adenopathy. Inguinal canals are patent bilaterally. No muscle atrophy or soft tissue edema. Chronic destructive process is at the L5-S1 disc were previously described. Healing and sclerosis has progressed since 03/12/2021. CT/[place] [id number] IMPRESSION: 1. Dense areas of consolidation involving the lower lobes bilaterally. Most si gnificant atelectasis LEFT lower lobe. 2. No ascites or adenopathy. 3. No ischemic changes. 4. Mild bilateral perinephric stranding. 5. Endotracheal nasogastric tubes in good position.
--- NOTE | 2022-04-25 08:43 | CT_ITS ---
WS: [id number] CT NECK WITHOUT CONTRAST. HISTORY: drank gasoline TECHNIQUE: Contiguous 5 mm axial images are performed through the neck without intravenous contrast. Sagittal and coronal reformats are also submitted. All CT scans at [facility] use at least on e of these dose optimization techniques: automated exposure control; mA and/or kV adjustment per khushi ent size (includes targeted exams where dose is matched to clinical indication); or iterative reconst ruction. CONTRAST: CONTRAST: None DLP: 437.23 mGy.cm COMPARISON: None. Patient is intubated. Endotracheal tube in good position. Nasogastric tube is also present extending below the gabriel but not included in its entirety on this examination. Prior sternotomy and aortic va lve replacement. Without IV contrast evaluation for subtle lesions is difficult. No soft tissue mass or adenopathy radha ntified. There may be a small amount of edema at the tongue base into the hypopharynx but this is dif ficult to quantify. No edema in the paravertebral soft tissues otherwise. Negative thyroid. Incompletely visualized posterior pulmonary opacifications beginning in the superior aspect of the lo wer lobes. Mucoperiosteal thickening throughout the sinus cavities. No air-fluid levels. CT/CT neck [place] con [id number] IMPRESSION: 1. Limited evaluation of the neck structures without IV contrast. 2. Endotracheal tube in good position. 3. Nasogastric tube is noted in the upper esophagus. 4. Cannot exclude small amount of edema at the tongue base and hypopharynx. No midline shift. 5. Incompletely visualized consolidations, probably atelectasis superior segme nts of the lower lobes.
[2022-04-25] MEDS: FUROsemide 10 mg/mL SDV 4mL 40 MG IVP (08:53)
[2022-04-25] MEDS: magnesium sulfate premix 2 GM/50 ML PIGGYBACK IV (08:53)
[2022-04-25] MEDS: sodium bicarbonate 8.4% 1 mEq/mL 50mL Syr 25 MEQ IVP (08:53)
[2022-04-25] MEDS: aztreonam 1,000 MG in sodium chloride 0.9% (plus) 50 ML 100 MG IV ×2 (08:54→19:54)
[2022-04-25] MEDS: heparin 5,000 unit/mL INJ 1 mL 5000 UNIT SUBCUT ×3 (08:55→20:47)
[2022-04-25] MEDS: pantoprazole 40 mg SDV IVP (08:55)
[2022-04-25] MEDS: vancomycin 1,500 MG/300 ML PIGGYBACK 200 MG IV ×2 (08:55→20:46)
--- NOTE | 2022-04-25 09:17 | PC.PHAR ---
UNABLE TO ASSES - PT INTUBATED- CALLED BOTH OF PT PHARMACIES - NOTHING FILLED SINCE JULY 2021 AT EITHER LOCATION
[2022-04-25] MEDS: propofol 1,000 MG/100 ML INJ 33.34 MG IV ×2 (10:27→12:34)
--- NOTE | 2022-04-25 12:37 | P.PN_ITS ---
Subjective Subjective: Patient was intubated overnight, currently is intubated, sedated, is on multiple sedating medications due to agitation, afebrile overnight, normotensive, good urine output Vitals/I&O/Wt Last Vital Signs Temp 98.9 F 04/25/22 05:45 Pulse 77 04/25/22 11:00 Resp 16 04/25/22 11:28 BP 99/65 04/25/22 11:00 Pulse Ox 93 04/25/22 11:28 O2 Del Method 04/25/22 06:00 O2 Flow Rate 3 04/24/22 20:00 FiO2 50 04/25/22 11:28 04/24/22 04/25/22 04/25/22 22:59 06:59 14:59 Intake Total 1002.767 / 2086.137 1020.833 / 2626.600 318.265 / 318.265 Output Total 950 / 950 Balance 1002.767 / 1002.767 673.833 / 1676.600 318.265 / 318.265 Weight last 48 hrs Weight 113.455 kg Weight 110.393 kg Weight 111.13 kg Physical Exam Const: COMMON NORMALS: no acute distress and patient oriented x3 Resp: COMMON NORMALS: normal respiratory effort, No retractions, No use of accessory muscles and clear to auscultation bilaterally AUSCULTATION: clear to auscultation bilaterally Cardio: COMMON NORMALS: regular rate, regular rhythm, S1 normal heart sound present and S2 normal heart sound present RATE: regular rate RHYTHM: regular rhythm HEART SOUNDS: S1 normal heart sound present and S2 normal heart sound present GI: COMMON NORMALS: Normal to inspection, nondistended, normoactive bowel sounds present and non-tender Extremity: COMMON NORMALS: no pedal edema Neuro: COMMON NORMALS: patient oriented x3 Psych: COMMON NORMALS: mental status grossly normal Urinary Catheter Management: Rowe: Cath Placed During This Visit: yes Reason for Continuing Indwelling Catheter: Other Urinary Catheter Date of Insertion: 04/24/22 Urinary Catheter Time of Insertion: 20:30 Data 04/25/22 03:35 04/25/22 03:35 Micro: Microbiology 04/24/22 20:25 Blood Culture - Preliminary Blood SPECIMEN COLLECTED 04/24/22 20:30 Blood Culture - Preliminary Blood SPECIMEN COLLECTED A&P Assessment and plan (1) Essential hypertension: (2) Psychiatric care: (3) Rhabdomyolysis: (4) CAD (coronary artery disease): (5) Anxiety and depression: (6) Diabetes mellitus, with long-term current use of insulin: (7) GERD (gastroesophageal reflux disease): (8) Schizophrenia: (9) Substance abuse: (10) H/O heart valve replacement with bioprosthetic valve: (11) Ventilator dependent: (12) Drug overdose: (13) Suicide attempt: (14) Combative behavior: (15) Agitation: (16) Alcohol abuse: (17) Obstructive sleep apnea: (18) Lacerations of multiple sites without complication: Plan #Intubated/sedated due to increasing agitation and combativeness #Drug overdose #Suicide attempt #History of explosive disorder, anxiety, depression, drug abuse #Alcohol abuse #Schizophrenia #Methamphetamine abuse #Marijuana abuse #Mild leukocytosis 12,000 #Possible gasoline ingestion - Poison control contacted by ER. - Continue on propofol, fentanyl and versed. May need to be paralyzed with nimbex if sedation not achieved. Pt requiring quite high doses of medications. He has high tolerance to narcotics. ? Continue on restraints ? Leukocytosis most likely secondary to stress response vs. infection. He could be aspirating as well, has very coarse breath sounds. Is a diabetic and has lacerations on feet b/l. Will cover with vanc and aztreonam for now. -CT chest abdomen pelvis with CT neck ordered given concerns for ingestion ? Check sputum culture, blood cultures, UCx ? Drug screen, alcohol screen complete. Salicylates negative, acetaminophen negative. ? Psychiatry consulted from the ER. Patient on a 96-hour hold. Transfer to psych once medically appropriate. ? Patient's home medications are listed as aripiprazole 10 mg daily, buspirone 10 3 times daily, olanzapine 10 mg twice daily. Trazodone 50 at bedtime. We will hold above medications until patient seen by psychiatry. -Unsure of home medication list is accurate and if patient is compliant. #Metabolic acidosis most likely secondary to drug intoxication #Mild rhabdomyolysis ? Continue to monitor ? Monitor CPK - Pt had quite a few rigors after versed 6 IV push and 4 mg /hr drip along with fentanyl 100 /hr. Will watch for CPK. additional propofol given. -Decrease fluid therapy to 50 cc an hour #Obstructive sleep apnea -May need cpap at tx, or sleep study is does not have one already. #Type 2 diabetes mellitus, insulin-dependent #Possible peripheral neuropathy -Continue on low-dose intensity sliding scale every 6 hours. ? Check blood glucose every 6 hours ? Hold home gabapentin for now. #History of coronary artery disease #History of aortic valve replacement #Hypertension -Unsure if patient taking his home medications. We will attempt to reach out to his pharmacy to check last fills. Family not available for collateral information. Primary team to call family in AM> ? Patient on lisinopril 20 mg daily at home. I will hold for now. Patient sedated. ?Elevation of BP secondary to agitation. Will hold off on hydralazine unless absolutely needed. DVT prophylaxis: Heparin 5000 units 3 times daily Diet: N.p.o., aspiration precautions Full code Attestations Medical Necessity Statement*: Patient requires half position due to drug ov erdose, suicide attempt, gasoline ingestion, critical care time spent over 35 minutes Coding Level of Care Code Acute Canvas Cutter Machine for [facility] Fwd Diagnoses Essential hypertension I10 Psychiatric care Rhabdomyolysis M62.82 CAD (coronary artery disease) I25.10 Anxiety and depression F41.9; F32.A Diabetes mellitus, with long-term current use of insulin E11.9; Z79.4 GERD (gastroesophageal reflux disease) K21.9 Schizophrenia F20.9 Substance abuse F19.10 H/O heart valve replacement with bioprosthetic valve Z95.3 Ventilator dependent Z99.11 Drug overdose T50.901A Suicide attempt T14.91XA Combative behavior R46.89 Agitation R45.1 Alcohol abuse F10.10 Obstructive sleep apnea G47.33 Lacerations of multiple sites without complication T07.XXXA
[2022-04-25 14:21] LABS: Glucose Point of Care 193 mg/dL (70-110)
[2022-04-25] MEDS: propofol 1,000 MG/100 ML INJ 46.68 MG IV (15:58)
[2022-04-25] MEDS: propofol 1,000 MG/100 ML INJ 40.01 MG IV ×2 (17:39→20:46)
--- NOTE | 2022-04-25 17:42 | PC.NURSE ---
attempted to turn down sedation during shift, patient became very diaphoretic and restless, sedation titrated to maintain patient comfort and vent compliance, uneventful shift
--- NOTE | 2022-04-25 19:24 | PC.NURSE ---
Upon start of shift @1900 patient Fentanyl was found running at 150 and titrated in the Mar accordingly. The hung bag is a 250ml bag which is on a discontinued order, however there is a current order for 100ml bags for this patient. 250ml bag will continue to be used as to avoid waste. Versed was also found to be running at 5 and was titrated down to 4 to begin slow sedation weaning.
[2022-04-25 21:45] LABS: Glucose Point of Care 141 mg/dL (70-110)
[2022-04-25] MEDS: propofol 1,000 MG/100 ML INJ 36.67 MG IV (23:18)
[2022-04-26] VITALS (35 sets, daily range): BP systolic 91–127; BP diastolic 44–77; PULSE 60–96; RESP 16–19; TEMP 37.6–38.6; O2SAT 93–98; BMI 38.0
[2022-04-26 00:33] LABS: Glucose Point of Care 136 mg/dL (70-110)
[2022-04-26 01:09] LABS: Blood Gas Allen Test Pos; Blood Gas Operator Identificat JB; Blood Gas Sample Type Arterial
[2022-04-26] MEDS: chlorhexidine gluconate 4% Btl 118 mL 1 APPLIC TOPICAL (02:02)
[2022-04-26] MEDS: propofol 1,000 MG/100 ML INJ 36.67 MG IV ×2 (02:18→04:56)
[2022-04-26 05:06] LABS: ABG PCO2 42.3 mmHg (35-45); ABG PH Result 7.33 (7.35-7.45); Arterial Blood Gas Hematocrit 41.7 % (42-52); Base Excess ABG -3.6 mmol/L (-2.0-2.0); Blood Gas Sample Site Radial, right; HCO3 ABG 22.2 mmol/L (22-26); Oxygen Device VENT; PO2 ABG 87.3 mmHg (80.0-100.0)
[2022-04-26 05:12] LABS: Blood Gas Drawn By BISJE; Blood Gas Vent Mode VC/AC
[2022-04-26 05:29] LABS: INR 1.19 (0.8-1.2)
[2022-04-26 05:52] LABS: Alanine Aminotransferase 9 U/L (0-41); Albumin Level 3.4 g/dL (3.5-5.2); Alkaline Phosphatase 76 U/L (40-130); Blood Urea Nitrogen 18 mg/dL (6-20); Calcium 8.5 mg/dL (8.5-10.5); Carbon Dioxide 20 mmol/L (22-29); Chloride 102 mmol/L (98-107); Creatine Phosphokinase 188 U/L (39-308); Globulin 2.7 g/dL (1.3-4.6); Glomerular Filtration Rate 102.3 mL/min (90-130); Glucose 157 mg/dL (65-115); Magnesium 1.8 mg/dL (1.7-2.3); NT Pro B Type Natriuretic Pept 17 pg/mL (0-125); Osmolality Calculated 279 mOsm/kg (285-295); Phosphorus 2.4 mg/dL (2.5-4.5); Sodium 132 mmol/L (136-145); Total Bilirubin 0.3 mg/dL (0.15-1.2); Total Protein 6.1 g/dL (6.6-8.7)
[2022-04-26 05:55] LABS: Anion Gap 13.9 (5-19); Aspartate Amino Transferase 13 U/L (0-40); Potassium 3.9 mmol/L (3.5-5.1)
[2022-04-26 05:56] LABS: Glucose Point of Care 144 mg/dL (70-110)
[2022-04-26] MEDS: sodium chloride 0.9% 1,000 ML 100 ML IV (06:18)
--- NOTE | 2022-04-26 06:22 | PC.NURSE ---
Patient rested comfortably through the night. Versed was weaned off through the night and tolerated well. Propofol titrated down to 50 and Fentanyl to 125. Patient became very combative around 0600 pulling at restraints and lifting off the bed. Medications were titrated back to their starting rates of 60/150. Versed started back as patient continued to pull and fight restraints. 4 nurses helped to hold patient in place in order to keep from breaking soft wrist restraints. This nurse will advise day shift to utilize physical restraints before tapering down sedation.
[2022-04-26] MEDS: dexmedeTOMIDine 0.9 % NaCL 400 MCG/100 ML PREMIX IV (06:29)
--- NOTE | 2022-04-26 07:00 | XRR_ITS ---
PROCEDURE INFORMATION: Exam: XR Chest Exam date and time: 04/26/2022 7:51 AM Age: 52 years old Clinical indication: Shortness of breath; Additional info: SOB TECHNIQUE: Imaging protocol: Radiologic exam of the chest. Views: 1 view. COMPARISON: [place] [id number] 04/25/2022 10:04 AM FINDINGS: Tubes, catheters and devices: NG tube extends into the stomach. Endotracheal tube is above the gabriel Lungs: Low lung volumes seen. The lungs are otherwise clear No consolidation. Pleural spaces: Unremarkable. No pleural effusion. No pneumothorax. Heart/Mediastinum: Unremarkable. No cardiomegaly. Bones/joints: Metallic sternotomy wires are present. XR/XR chest 1V portable [id number] IMPRESSION: 1. Endotracheal tube is above the gabriel. 2. NG tube is in the stomach 3. Metallic sternotomy wires are present 4. Low lung volumes
[2022-04-26 07:11] LABS: Basophils % 0.3 %; Eosinophils % 0.5 %; Hematocrit 39.2 % (42.0-52.0); Hemoglobin 12.4 g/dL (11.7-16.6); Lymphocytes # 1.4 10^3/uL (0.8-4.8); Lymphocytes % 19.4 %; Mean Corpuscular HGB Conc 31.6 g/dL (30.0-36.0); Mean Corpuscular Hemoglobin 30.7 pg (28.0-34.0); Mean Platelet Volume 10.3 fL (7.4-10.4); Monocytes # 0.5 10^3/uL (0.2-0.9); Monocytes % 6.1 %; Neutrophils # 5.45 10^3/uL (1.8-7.7); Neutrophils % 73.4 %; Nucleated Red Blood Cells % 0 %; Platelet Count 171 10^3/cmm (130-400); Red Blood Count 4.04 10^6/uL (4.1-5.3); White Blood Count 7.4 10^3/uL (4.0-10.0)
[2022-04-26] MEDS: aztreonam 1,000 MG in sodium chloride 0.9% (plus) 50 ML 100 MG IV (07:50)
[2022-04-26] MEDS: propofol 1,000 MG/100 ML INJ 40.01 MG IV (07:51)
[2022-04-26 08:53] LABS: Vancomycin Trough 8.6 ug/mL (10-15)
[2022-04-26] MEDS: heparin 5,000 unit/mL INJ 1 mL 5000 UNIT SUBCUT (09:39)
[2022-04-26] MEDS: pantoprazole 40 mg SDV IVP (09:39)
[2022-04-26] MEDS: vancomycin 1,500 MG/300 ML PIGGYBACK 200 MG IV (09:40)
--- NOTE | 2022-04-26 10:08 | PM.PN ---
Subjective Subjective: T-max 100.4 Fahrenheit overnight. Patient noted to be sweaty, perspiring. Attempts were made to bring down his sedation. However with minimal turning down fentanyl from 1 50-1 25 and propofol from 60-40, patient was awake, flailing, needed to be restrained for safety purposes. He has thick copious secretions coming out of his endotracheal tube. CT of the neck performed yesterday showed small amount of edema at the tongue base and hypopharynx without any midline shift. CT of his chest showed bilateral lower lobe infiltrates. Urine output 1.5 L over last 24 hours. Leukocytosis has resolved. Continues to be intubated, mechanically ventilated. Medications: Reviewed: Yes Vitals/I&O/Wt Last Vital Signs Temp 99.9 F H 04/26/22 03:00 Pulse 75 04/26/22 08:00 Resp 16 04/26/22 09:55 BP 104/58 04/26/22 08:00 Pulse Ox 96 04/26/22 09:55 O2 Del Method 04/26/22 08:00 O2 Flow Rate 3 04/24/22 20:00 FiO2 50 04/26/22 09:55 04/25/22 04/26/22 04/26/22 22:59 06:59 14:59 Intake Total 1429.291 / 3129.348 837.735 / 3967.083 113.438 / 113.438 Output Total 1000 / 1000 550 / 1550 Balance 429.291 / 2129.348 287.735 / 2417.083 113.438 / 113.438 Weight last 48 hrs Weight 113.398 kg Weight 113.455 kg Weight 110.393 kg Weight 111.13 kg Physical Exam Narrative: General: Intubated, sedated, perspiring HEENT: PERRLA, pupils bilaterally equal and reactive, pallors not present Chest: Coarse crackles bilaterally CVS: S1-S2 regular, no murmurs, no tachycardia, no gallops, no rubs Abdomen: Soft, nontender, no organomegaly, bowel sounds present Neuro: Intubated and sedated currently. Extremities no clubbing edema or cyanosis. Urinary Catheter Management: Rowe: Cath Placed During This Visit: yes Reason for Continuing Indwelling Catheter: Accurate Measurement of Urinary Output in Critically Ill Patients Urinary Catheter Date of Insertion: 04/24/22 Urinary Catheter Time of Insertion: 20:30 Data 04/26/22 06:50 04/26/22 04:20 Micro: Microbiology 04/24/22 20:25 Blood Culture - Preliminary Blood NEGATIVE TO DATE 04/24/22 20:30 Blood Culture - Preliminary Blood NEGATIVE TO DATE 04/25/22 10:35 Gram Stain - Final Sputum - Endotracheal Tube Aspirate ABG Interpretation 1: 04/24/22 04/25/22 04/26/22 20:14 02:29 01:00 ABG pH 7.24 L 7.31 L 7.33 L ABG pCO2 44.7 41.9 42.3 ABG pO2 529.0 H 72.2 L 87.3 ABG HCO3 19.0 L 20.9 L 22.2 ABG O2 Saturation 98.4 ABG Base Excess -8.4 L -5.2 L -3.6 L A&P Assessment and plan (1) Substance abuse: (2) Essential hypertension: (3) Psychiatric care: (4) Rhabdomyolysis: (5) CAD (coronary artery disease): (6) Anxiety and depression: (7) Diabetes mellitus, with long-term current use of insulin: (8) GERD (gastroesophageal reflux disease): (9) Schizophrenia: (10) H/O heart valve replacement with bioprosthetic valve: (11) Ventilator dependent: (12) Drug overdose: (13) Suicide attempt: (14) Combative behavior: (15) Agitation: (16) Alcohol abuse: (17) Obstructive sleep apnea: (18) Lacerations of multiple sites without complication: Plan #Polysubstance abuse Currently admitted since April 24 after presenting to the emergency room with acute overdose with reportedly heroin and methamphetamine and possibly gasoline. Urine tox screen is positive for amphetamines, benzos, marijuana, alcohol. Negative for salicylates. - Poison control contacted by ER. -He is on high doses of fentanyl, propofol, Versed and Precedex. Patient is currently intubated and sedated. Attempts at weaning down sedation this morning were unsuccessful as patient became very agitated with minimal trending down of sedation. Also noted to be perspiring, having low-grade fevers, overall with signs of withdrawal. Would not be an ideal candidate for extubation at this point. Additionally CT neck notes edema in the hypopharynx which may be making him more prone to reintubation if extubation is performed early. For now we will continue to keep him sedated and mechanically ventilated. Attempts will be continued to wean down sedation as possible. ? Psychiatry consulted from the ER. Patient on a 96-hour hold. Transfer to [facility] once medically appropriate. ? Patient's home medications are listed as aripiprazole 10 mg daily, buspirone 10 three times daily, olanzapine 10 mg twice daily. Trazodone 50 at bedtime. We will resume olanzapine 10mg BID and trazodone 50mg bedtime today. #Bilateral pneumonia -CT chest with evidence of bilateral lower lobe consolidation. Likely to represent aspiration pneumonia given clinical history Blood culture negative thus far from 04/24/2022. Has a history of MRSA and haemophilus positive sputum culture from July 2021. He is currently on aztreonam and vancomycin, will change therapy to piperacillin tazobactam and vancomycin. Antibiotic day 3 today. Pending sputum culture this admission. #Metabolic acidosis most likely secondary to drug intoxication #Mild rhabdomyolysis Now resolved Continue IVF NS @ 50cc/ hr #Obstructive sleep apnea -May need cpap at ca, or sleep study is does not have one already. #Type 2 diabetes mellitus, insulin-dependent -Continue on low-dose intensity sliding scale every 6 hours. #History of coronary artery disease #History of aortic valve replacement #Hypertension ? Patient on lisinopril 20 mg daily at home. Holding antihypertensives for now. Currently MAp ranging between 60-65. DVT prophylaxis: lovenox 40 s/c Diet: NGT in place, day 3 intubated PUD ppx: protonix 40mg Full code Attestations Medical Necessity Statement*: continued admission for respiratory support, mechanical ventilation, polysubstance withdrawal, iv abx for aspiration pneumonia. Critical Care Time: The high probability of a clinically significant, sudden or life threatening deterioration of the patient's [respiratory, cardiac, ID] system(s) required my full and direct attention, intervention and personal management. The critical care time is as shown. This time is in addition to time spent performing any reported procedures but includes the following: [x] Data and vital sign review and interpretation [x] Patient assessment, examination and intervention [x] Documentation [x] Medication orders and management Critical Care Time (min): 50 Coding Level of Care Code Acute Cut Off Operator Scorer for [facility] Fwd Diagnoses Substance abuse F19.10 Essential hypertension I10 Psychiatric care Rhabdomyolysis M62.82 CAD (coronary artery disease) I25.10 Anxiety and depression F41.9; F32.A Diabetes mellitus, with long-term current use of insulin E11.9; Z79.4 GERD (gastroesophageal reflux disease) K21.9 Schizophrenia F20.9 H/O heart valve replacement with bioprosthetic valve Z95.3 Ventilator dependent Z99.11 Drug overdose T50.901A Suicide attempt T14.91XA Combative behavior R46.89 Agitation R45.1 Alcohol abuse F10.10 Obstructive sleep apnea G47.33 Lacerations of multiple sites without complication T07.XXXA
[2022-04-26] MEDS: propofol 1,000 MG/100 ML INJ 33.34 MG IV (10:27)
[2022-04-26] MEDS: OLANZapine 10 mg TABLET OG-TUBE ×2 (10:57→17:18)
[2022-04-26] MEDS: piperacillin-tazobactam 3.375 GM in sodium chloride 0.9% (plus) 50 ML IV ×2 (12:11→19:05)
[2022-04-26 12:55] LABS: Glucose Point of Care 114 mg/dL (70-110)
[2022-04-26] MEDS: propofol 1,000 MG/100 ML INJ 30.01 MG IV (13:25)
[2022-04-26] MEDS: enoxaparin 40 mg/0.4 mL Syringe SUBCUT (14:40)
--- NOTE | 2022-04-26 14:58 | PC.NURSE ---
Fever 101.5 auxiliary. notified, no orders. Ice pack placed on patient at this time. Will rotate sites and remove every 20 minutes.
[2022-04-26] MEDS: acetaminophen 325 mg Tablet 650 MG PO (15:40)
[2022-04-26] MEDS: vancomycin 1,250 MG/250 ML PIGGYBACK 250 MG IV (17:18)
[2022-04-26] MEDS: propofol 1,000 MG/100 ML INJ 23.34 MG IV ×2 (17:23→21:47)
[2022-04-26 18:41] LABS: Glucose Point of Care 113 mg/dL (70-110)
[2022-04-26] MEDS: trazodone 50 mg Tablet OG-TUBE (21:41)
[2022-04-27] VITALS (34 sets, daily range): BP systolic 92–127; BP diastolic 50–67; PULSE 57–79; RESP 16; TEMP 36.5; O2SAT 91–99; BMI 39.6
[2022-04-27] MEDS: vancomycin 1,250 MG/250 ML PIGGYBACK 250 MG IV ×3 (00:48→17:17)
[2022-04-27] MEDS: propofol 1,000 MG/100 ML INJ 23.34 MG IV ×4 (02:26→15:32)
[2022-04-27] MEDS: piperacillin-tazobactam 3.375 GM in sodium chloride 0.9% (plus) 50 ML IV ×3 (02:39→18:03)
[2022-04-27] MEDS: sodium chloride 0.9% 1,000 ML 100 ML IV (03:18)
[2022-04-27 03:37] LABS: ABG PCO2 37.9 mmHg (35-45); ABG PH Result 7.33 (7.35-7.45); Arterial Blood Gas Hematocrit 37.5 % (42-52); Base Excess ABG -5.2 mmol/L (-2.0-2.0); Blood Gas Allen Test Pos; Blood Gas Sample Site Radial, right; Blood Gas Sample Type Arterial; HCO3 ABG 20.2 mmol/L (22-26); Oxygen Device VENT; PO2 ABG 90.1 mmHg (80.0-100.0)
--- NOTE | 2022-04-27 04:00 | XRR_ITS ---
PROCEDURE INFORMATION: Exam: XR Chest Exam date and time: 04/27/2022 5:13 AM Age: 52 years old Clinical indication: Condition or disease and device placement; Ett placement (vent status); Other: Pneumonia; Additional info: Follow up pnuemonia, ett TECHNIQUE: Imaging protocol: Radiologic exam of the chest. Views: 1 view. Total images: 1 COMPARISON: CR XR chest 1V portable [id number] 04/26/2022 7:51 AM FINDINGS: Tubes, catheters and devices: Tubes and catheters are unchanged from the prior exam. Lungs: Nonspecific left lung base opacity favors atelectasis or pneumonia. Pleural spaces: Unremarkable. No pleural effusion. No pneumothorax. Heart/Mediastinum: There has been an aortic valve replacement. Heart size is stable when compared to the prior exam. Bones/joints: Osseous structures are unchanged from the prior exam. Other findings: Stable postsurgical changes. XR/XR chest 1V portable [id number] IMPRESSION: 1. Tubes and catheters are unchanged from the prior exam. 2. Nonspecific left lung base opacity favors atelectasis or pneumonia. This has increased since prior exam.
[2022-04-27] MEDS: chlorhexidine gluconate 4% Btl 118 mL 1 APPLIC TOPICAL (04:08)
[2022-04-27 05:47] LABS: Basophils % 0.4 %; Eosinophils # 0.1 10^3/uL (0.0-0.8); Hematocrit 35.5 % (42.0-52.0); Hemoglobin 11.2 g/dL (11.7-16.6); Lymphocytes # 1.4 10^3/uL (0.8-4.8); Lymphocytes % 27.8 %; Mean Corpuscular HGB Conc 31.5 g/dL (30.0-36.0); Mean Corpuscular Hemoglobin 30.3 pg (28.0-34.0); Mean Corpuscular Volume 95.9 fl (80-94); Mean Platelet Volume 10.6 fL (7.4-10.4); Monocytes # 0.4 10^3/uL (0.2-0.9); Monocytes % 7.4 %; Neutrophils # 3.07 10^3/uL (1.8-7.7); Neutrophils % 63.2 %; Nucleated Red Blood Cells % 0 %; Platelet Count 153 10^3/cmm (130-400); Red Cell Distribution Width 12.9 % (12.1-15.1); White Blood Count 4.9 10^3/uL (4.0-10.0)
[2022-04-27 06:09] LABS: Alanine Aminotransferase 6 U/L (0-41); Albumin Level 3.2 g/dL (3.5-5.2); Alkaline Phosphatase 62 U/L (40-130); Anion Gap 12.6 (5-19); Aspartate Amino Transferase 8 U/L (0-40); Blood Urea Nitrogen 13 mg/dL (6-20); Calcium 8.4 mg/dL (8.5-10.5); Carbon Dioxide 19 mmol/L (22-29); Chloride 110 mmol/L (98-107); Creatine Phosphokinase 152 U/L (39-308); Globulin 2.4 g/dL (1.3-4.6); Glomerular Filtration Rate 89.3 mL/min (90-130); Glucose 104 mg/dL (65-115); Magnesium 1.8 mg/dL (1.7-2.3); Osmolality Calculated 286 mOsm/kg (285-295); Potassium 3.6 mmol/L (3.5-5.1); Sodium 138 mmol/L (136-145); Total Bilirubin 0.2 mg/dL (0.15-1.2); Total Protein 5.6 g/dL (6.6-8.7)
[2022-04-27 06:33] LABS: Glucose Point of Care 104 mg/dL (70-110)
[2022-04-27] MEDS: pantoprazole 40 mg SDV IVP (08:29)
[2022-04-27] MEDS: OLANZapine 10 mg TABLET OG-TUBE ×2 (08:30→17:17)
[2022-04-27 08:42] LABS: Vancomycin Trough 15.2 ug/mL (10-15)
--- NOTE | 2022-04-27 10:58 | P.PN_ITS ---
Subjective Subjective: T-max 101.5 overnight. Patient still diaphoretic this morning. No acute interim events. Still on mechanical ventilation, FiO2 of 50%, VT 500, PEEP of 8. Medications: Reviewed: Yes Vitals/I&O/Wt Last Vital Signs Temp 97.7 F 04/27/22 06:00 Pulse 60 04/27/22 10:00 Resp 16 04/27/22 09:30 BP 113/62 04/27/22 10:00 Pulse Ox 98 04/27/22 10:00 O2 Del Method 04/26/22 19:00 O2 Flow Rate 3 04/24/22 20:00 FiO2 50 04/27/22 09:30 04/26/22 04/27/22 04/27/22 22:59 06:59 14:59 Intake Total 1501.485 / 2246.959 400 / 2646.959 Output Total 500 / 500 675 / 1175 Balance 1001.485 / 1746.959 -275 / 1471.959 Weight last 48 hrs Weight 118.388 kg Weight 113.398 kg Physical Exam Narrative: General: Intubated, sedated, perspiring HEENT: PERRLA, pupils bilaterally equal and reactive, pallors not present Chest: Coarse crackles bilaterally CVS: S1-S2 regular, no murmurs, no tachycardia, no gallops, no rubs Abdomen: Soft, nontender, no organomegaly, bowel sounds present Neuro: Intubated and sedated currently. Extremities no clubbing edema or cyanosis. Urinary Catheter Management: Rowe: Cath Placed During This Visit: yes Reason for Continuing Indwelling Catheter: Accurate Measurement of Urinary O utput in Critically Ill Patients Urinary Catheter Date of Insertion: 04/24/22 Urinary Catheter Time of Insertion: 20:30 Data 04/27/22 04:14 04/27/22 04:14 Micro: Microbiology 04/25/22 10:35 Gram Stain - Final Sputum - Endotracheal Tube Aspirate Sputum Culture - Preliminary Coag positive Staphylococcus A&P Assessment and plan (1) Substance abuse: (2) Essential hypertension: (3) Psychiatric care: (4) Rhabdomyolysis: (5) CAD (coronary artery disease): (6) Anxiety and depression: (7) Diabetes mellitus, with long-term current use of insulin: (8) GERD (gastroesophageal reflux disease): (9) Schizophrenia: (10) H/O heart valve replacement with bioprosthetic valve: (11) Ventilator dependent: (12) Drug overdose: (13) Suicide attempt: (14) Combative behavior: (15) Agitation: (16) Alcohol abuse: (17) Obstructive sleep apnea: (18) Lacerations of multiple sites without complication: Plan #Polysubstance abuse Currently admitted since April 24 after presenting to the emergency room with acute overdose with reportedly heroin and methamphetamine and possibly gasoline. Urine tox screen is positive for amphetamines, benzos, marijuana, alcohol. Negative for salicylates. - Poison control contacted by ER. -He is on high doses of fentanyl, propofol, Versed and Precedex. Patient is currently intubated and sedated. Attempts at weaning down sedation this morning were unsuccessful as patient became very agitated with minimal trending down of sedation. Also noted to be perspiring, having low-grade fevers, overall with signs of withdrawal. Would not be an ideal candidate for extubation at this point. Additionally CT neck notes edema in the hypopharynx which may be making him more prone to reintubation if extubation is performed early. For now we will continue to keep him sedated and mechanically ventilated. Sedation vacation to today. . Spontaneous breathing trial. Resume Abilify today ? Psychiatry consulted from the ER. Patient on a 96-hour hold. Transfer to psych once medically appropriate. ? Patient's home medications are listed as aripiprazole 10 mg daily, buspirone 10 three times daily, olanzapine 10 mg twice daily. Trazodone 50 at bedtime. resumed olanzapine 10mg BID and trazodone 50mg bedtime on 04/26 #Bilateral pneumonia -CT chest with evidence of bilateral lower lobe consolidation. Likely to represent aspiration pneumonia given clinical history Blood culture negative thus far from 04/24/2022. Has a history of MRSA and haemophilus positive sputum culture from July 2021. He is currently on aztreonam and vancomycin, will change therapy to piperacillin tazobactam and vancomycin. Antibiotic day 4 today. Currently sputum culture showing coag positive staph, likely staph aureus. #Metabolic acidosis most likely secondary to drug intoxication #Mild rhabdomyolysis Now resolved Continue IVF NS @ 50cc/ hr urine output 1.1L #Obstructive sleep apnea -May need cpap at [facility], or sleep study is does not have one already. #Type 2 diabetes mellitus, insulin-dependent -Continue on low-dose intensity sliding scale every 6 hours. #History of coronary artery disease #History of aortic valve replacement #Hypertension ? Patient on lisinopril 20 mg daily at home. Holding antihypertensives for now. Currently MAp ranging between 60-65. DVT prophylaxis: lovenox 40 s/c Diet: NGT in place, day 3 intubated PUD ppx: protonix 40mg Full code Attestations Medical Necessity Statement*: Continued admission for mechanical ventilation, polysubstance withdrawal , iv abx Critical Care Time: The high probability of a clinically significant, sudden or life threatening deterioration of the patient's [respiratory, metabolic] system(s) required my full and direct attention, intervention and personal management. The critical care time is as shown. This time is in addition to time spent performing any reported procedures but includes the following: [x] Data and vital sign review and interpretation [x] Patient assessment, examination and intervention [x] Documentation [x] Medication orders and management Critical Care Time (min): 45 Coding Level of Care Code Acute Moisture Machine Tender for [facility] Fwd Diagnoses Substance abuse F19.10 Essential hypertension I10 Psychiatric care Rhabdomyolysis M62.82 CAD (coronary artery disease) I25.10 Anxiety and depression F41.9; F32.A Diabetes mellitus, with long-term current use of insulin E11.9; Z79.4 GERD (gastroesophageal reflux disease) K21.9 Schizophrenia F20.9 H/O heart valve replacement with bioprosthetic valve Z95.3 Ventilator dependent Z99.11 Drug overdose T50.901A Suicide attempt T14.91XA Combative behavior R46.89 Agitation R45.1 Alcohol abuse F10.10 Obstructive sleep apnea G47.33 Lacerations of multiple sites without complication T07.XXXA
[2022-04-27 11:43] LABS: Glucose Point of Care 89 mg/dL (70-110)
--- NOTE | 2022-04-27 11:45 | PC.NURSE ---
Dr. Johnson was notified of glucose of 89, fluids switched to D5, plan to leave sedated today to prevent bad detox
[2022-04-27] MEDS: dextrose 5%-sod chloride 0.9% 1,000 ML 75 ML IV (11:50)
[2022-04-27] MEDS: enoxaparin 40 mg/0.4 mL Syringe SUBCUT (14:00)
[2022-04-27 17:52] LABS: Glucose Point of Care 106 mg/dL (70-110)
[2022-04-27] MEDS: propofol 1,000 MG/100 ML INJ 26.67 MG IV (19:23)
[2022-04-27] MEDS: trazodone 50 mg Tablet OG-TUBE (21:10)
[2022-04-27] MEDS: propofol 1,000 MG/100 ML INJ 30.01 MG IV (23:33)
[2022-04-28] VITALS (31 sets, daily range): BP systolic 99–138; BP diastolic 52–77; PULSE 58–80; RESP 13–17; TEMP 38.1; O2SAT 93–99
[2022-04-28] MEDS: vancomycin 1,250 MG/250 ML PIGGYBACK 250 MG IV ×3 (00:38→16:39)
[2022-04-28 00:40] LABS: Glucose Point of Care 141 mg/dL (70-110)
[2022-04-28] MEDS: propofol 1,000 MG/100 ML INJ 30.01 MG IV (02:04)
[2022-04-28] MEDS: dextrose 5%-sod chloride 0.9% 1,000 ML 75 ML IV (02:28)
[2022-04-28] MEDS: piperacillin-tazobactam 3.375 GM in sodium chloride 0.9% (plus) 50 ML IV ×3 (02:31→18:32)
[2022-04-28 03:29] LABS: ABG PCO2 39.6 mmHg (35-45); ABG PH Result 7.31 (7.35-7.45); Arterial Blood Gas Hematocrit 35.1 % (42-52); Base Excess ABG -5.8 mmol/L (-2.0-2.0); Blood Gas Allen Test Pos; Blood Gas LPM 0.5 %; Blood Gas Sample Site Radial, right; Blood Gas Sample Type Arterial; Oxygen Device VENT
[2022-04-28 03:54] LABS: Basophils % 0.2 %; Eosinophils # 0.1 10^3/uL (0.0-0.8); Eosinophils % 0.9 %; Hemoglobin 11.3 g/dL (11.7-16.6); Lymphocytes % 17.7 %; Mean Corpuscular HGB Conc 31.4 g/dL (30.0-36.0); Mean Corpuscular Hemoglobin 30.6 pg (28.0-34.0); Mean Corpuscular Volume 97.6 fl (80-94); Mean Platelet Volume 10.3 fL (7.4-10.4); Monocytes # 0.4 10^3/uL (0.2-0.9); Monocytes % 6.9 %; Neutrophils # 3.96 10^3/uL (1.8-7.7); Neutrophils % 73.9 %; Nucleated Red Blood Cells % 0 %; Platelet Count 156 10^3/cmm (130-400); Red Blood Count 3.69 10^6/uL (4.1-5.3); Red Cell Distribution Width 12.9 % (12.1-15.1); White Blood Count 5.4 10^3/uL (4.0-10.0)
[2022-04-28 04:30] LABS: Alanine Aminotransferase 7 U/L (0-41); Albumin Level 2.8 g/dL (3.5-5.2); Alkaline Phosphatase 62 U/L (40-130); Aspartate Amino Transferase 15 U/L (0-40); Blood Urea Nitrogen 10 mg/dL (6-20); Calcium 8.1 mg/dL (8.5-10.5); Carbon Dioxide 18 mmol/L (22-29); Chloride 110 mmol/L (98-107); Globulin 2.7 g/dL (1.3-4.6); Glomerular Filtration Rate 102.3 mL/min (90-130); Glucose 157 mg/dL (65-115); Magnesium 1.6 mg/dL (1.7-2.3); Osmolality Calculated 288 mOsm/kg (285-295); Sodium 138 mmol/L (136-145); Total Bilirubin 0.2 mg/dL (0.15-1.2); Total Protein 5.5 g/dL (6.6-8.7)
[2022-04-28 04:50] LABS: Creatine Phosphokinase 473 U/L (39-308)
[2022-04-28] MEDS: propofol 1,000 MG/100 ML INJ 26.67 MG IV ×5 (05:03→21:03)
[2022-04-28] MEDS: OLANZapine 10 mg TABLET OG-TUBE ×2 (08:23→18:31)
[2022-04-28] MEDS: pantoprazole 40 mg SDV IVP (08:34)
[2022-04-28] MEDS: dexmedeTOMIDine 0.9 % NaCL 400 MCG/100 ML PREMIX 11.35 MCG IV (09:50)
--- NOTE | 2022-04-28 09:57 | PC.CHAP ---
Pastoral Care Encounter/Spiritual Assessment Type of Contact [] Declined transportation security screener visit [] Patient/Family/Request visit [] Outpatient visit [] Follow-up visit [] Physician referral [] Code/Alert [x] Routine visit [] Staff referral [] Actively dying [x] Patient sleeping [] Family support [] [] Out of room [] Palliative care [] [] Receiving care in room [] Pre-surgical visit [] Trauma [] Long length of stay [x] ICU visit [x] Other: vent Relational/Emotional Strength [] Patient feels connected with others/family/visitors/staff [] Distress [] Loneliness/isolation [] Abandonment Spirituality of Patient [] Person of Kimmie [] Attends Adventism of their Kimmie [] Believes in Prayer [] Reads Bible or Amish materials [] There are Spiritual issues to be addressed Multiple Slide Operator Interventions [x] Prayer [] Active listening [] Non-anxious presence [] Spiritual/emotional support [] Crisis/trauma care [] Spiritual counseling [] Bereavement support [] Provided bereavement packet [] Provided Bible/devotional materials [] Provided toy/stuffed animal, coloring book to patient or family member [] Provided Communion [] Anointing/[place] [] Salvation [x] Completed spiritual assessment [] Other: Impact on Illness or Injury [] Angry [] Fearful [] Anxious [] Often cries [] Exhaustion [] Unable to work [] Unable to attend mandaeism [] Unable to walk/stand [] Unable to read [] Unable to drive [] Unable to eat/drink [] Unable to sleep [] Unable to be with family [] Patient intubated [] Other: Summary Time spent with patient
--- NOTE | 2022-04-28 10:52 | PM.PN ---
Subjective Subjective: Afebrile over last 24 hours. Still with diaphoresis. Overnight sedation was weaned down after which patient became very agitated and combative. Needed to be placed back on Versed. This a.m. vent requirements are at FiO2 40%, PEEP of 12, VT 500. Medications: Reviewed: Yes Vitals/I&O/Wt Last Vital Signs Temp 97.7 F 04/27/22 06:00 Pulse 66 04/28/22 08:00 Resp 16 04/28/22 10:22 BP 121/62 04/28/22 08:00 Pulse Ox 96 04/28/22 10:22 O2 Del Method 04/26/22 19:00 O2 Flow Rate 3 04/24/22 20:00 FiO2 40 04/28/22 10:22 04/27/22 04/28/22 04/28/22 22:59 06:59 14:59 Intake Total 1786.061 / 2436.061 1720.38 / 4156.441 86.22 / 86.22 Output Total 800 / 800 700 / 1500 Balance 986.061 / 9109.712 7566.38 / 2656.441 86.22 / 86.22 Weight last 48 hrs Weight 117.934 kg Weight 118.388 kg Physical Exam Narrative: General: intubated, sedated, diaphoretic HEENT: PERRLA, pupils bilaterally equal and reactive, pallors not present Chest: Normal vesicular breath sounds, no added sounds, equal good air entry bilaterally CVS: S1-S2 regular, no murmurs, no tachycardia, no gallops, no rubs Abdomen: Soft, nontender, no organomegaly, bowel sounds present Neuro:intubated, sedated Urinary Catheter Management: Rowe: Cath Placed During This Visit: yes Reason for Continuing Indwelling Catheter: Accurate Measurement of Urinary Output in Critically Ill Patients Urinary Catheter Date of Insertion: 04/24/22 Urinary Catheter Time of Insertion: 20:30 Data 04/28/22 03:14 04/28/22 03:14 Micro: Microbiology 04/25/22 10:35 Gram Stain - Final Sputum - Endotracheal Tube Aspirate Sputum Culture - Final Staphylococcus schleiferi sub A&P Assessment and plan (1) Substance abuse: (2) Essential hypertension: (3) Psychiatric care: (4) Rhabdomyolysis: (5) CAD (coronary artery disease): (6) Anxiety and depression: (7) Diabetes mellitus, with long-term current use of insulin: (8) GERD (gastroesophageal reflux disease): (9) Schizophrenia: (10) H/O heart valve replacement with bioprosthetic valve: (11) Ventilator dependent: (12) Drug overdose: (13) Suicide attempt: (14) Combative behavior: (15) Agitation: (16) Alcohol abuse: (17) Obstructive sleep apnea: (18) Lacerations of multiple sites without complication: Plan #Polysubstance abuse Currently admitted since April 24 after presenting to the emergency room with acute overdose with reportedly heroin and methamphetamine and possibly gasoline. Urine tox screen is positive for amphetamines, benzos, marijuana, alcohol. Negative for salicylates. - Poison control contacted by ER. -He is on high doses of fentanyl, propofol, Versed and Precedex. Patient is currently intubated and sedated. Plan to D/c Versed today and replace with Precedex. spontanesou breathing trial, attempt extubation in the next 24 [address] neck notes edema in the hypopharynx which may be making him more prone to reintubation if extubation is performed early. For now we will continue to keep him sedated and mechanically ventilated. Sedation vacation to today. . Spontaneous breathing trial. Resume Abilify today ? Psychiatry consulted from the ER. Patient on a 96-hour hold. Transfer to psych once medically appropriate. ? Patient's home medications are listed as aripiprazole 10 mg daily, buspirone 10 three times daily, olanzapine 10 mg twice daily. Trazodone 50 at bedtime. resumed olanzapine 10mg BID and trazodone 50mg bedtime on 04/26 #Bilateral pneumonia -CT chest with evidence of bilateral lower lobe consolidation. Likely to represent aspiration pneumonia given clinical history Blood culture negative thus far from 04/24/2022. Has a history of MRSA and haemophilus positive sputum culture from July 2021. He is currently on aztreonam and vancomycin, will change therapy to piperacillin tazobactam and vancomycin. Antibiotic day 5 today. #Metabolic acidosis most likely secondary to drug intoxication #Mild rhabdomyolysis Now resolved Continue IVF NS @ 50cc/ hr urine output 1.1L #Obstructive sleep apnea -May need cpap at pr, or sleep study is does not have one already. #Type 2 diabetes mellitus, insulin-dependent -Continue on low-dose intensity sliding scale every 6 hours. #History of coronary artery disease #History of aortic valve replacement #Hypertension ? Patient on lisinopril 20 mg daily at home. Holding antihypertensives for now. Currently MAp ranging between 60-65. DVT prophylaxis: lovenox 40 s/c Diet: NGT in place, day 3 intubated PUD ppx: protonix 40mg Full code Attestations Medical Necessity Statement*: intibated, needs ventilatory support, polysubstance withdrawal , preapring for extubation over next 24-48 hrs Critical Care Time: The high probability of a clinically significant, sudden or life threatening deterioration of the patient's [respiratory] system(s) required my full and direct attention, intervention and personal management. The critical care time is as shown. This time is in addition to time spent performing any reported procedures but includes the following: [x] Data and vital sign review and interpretation [x] Patient assessment, examination and intervention [x] Documentation [x] Medication orders and management Critical Care Time (min): 45 Coding Level of Care Code Acute Electrophysiologist for [facility] Fwd Diagnoses Substance abuse F19.10 Essential hypertension I10 Psychiatric care Rhabdomyolysis M62.82 CAD (coronary artery disease) I25.10 Anxiety and depression F41.9; F32.A Diabetes mellitus, with long-term current use of insulin E11.9; Z79.4 GERD (gastroesophageal reflux disease) K21.9 Schizophrenia F20.9 H/O heart valve replacement with bioprosthetic valve Z95.3 Ventilator dependent Z99.11 Drug overdose T50.901A Suicide attempt T14.91XA Combative behavior R46.89 Agitation R45.1 Alcohol abuse F10.10 Obstructive sleep apnea G47.33 Lacerations of multiple sites without complication T07.XXXA
[2022-04-28 14:28] LABS: Osmolality Serum 327 mOsm/kg (278-305)
[2022-04-28] MEDS: dexmedeTOMIDine 0.9 % NaCL 400 MCG/100 ML PREMIX 25.53 MCG IV (14:51)
[2022-04-28] MEDS: enoxaparin 40 mg/0.4 mL Syringe SUBCUT (14:51)
[2022-04-28 15:37] LABS: Ethylene Glycol <10.0 mg/L (***)
[2022-04-28] MEDS: acetaminophen 325 mg Tablet 650 MG PO (21:04)
[2022-04-28] MEDS: trazodone 50 mg Tablet OG-TUBE (21:04)
[2022-04-29] VITALS (30 sets, daily range): BP systolic 98–149; BP diastolic 53–89; PULSE 57–94; RESP 16–18; TEMP 37.1–38.3; O2SAT 88–98; BMI 39.2
[2022-04-29] MEDS: vancomycin 1,250 MG/250 ML PIGGYBACK 250 MG IV ×3 (00:23→16:50)
[2022-04-29] MEDS: propofol 1,000 MG/100 ML INJ 26.67 MG IV ×2 (00:23→04:56)
[2022-04-29] MEDS: chlorhexidine gluconate 4% Btl 118 mL 1 APPLIC TOPICAL (02:03)
[2022-04-29] MEDS: piperacillin-tazobactam 3.375 GM in sodium chloride 0.9% (plus) 50 ML IV ×2 (02:04→10:31)
[2022-04-29] MEDS: pantoprazole 40 mg SDV IVP (08:23)
[2022-04-29] MEDS: OLANZapine 10 mg TABLET OG-TUBE ×2 (08:23→17:23)
[2022-04-29] MEDS: dexmedeTOMIDine 0.9 % NaCL 400 MCG/100 ML PREMIX 25.53 MCG IV ×4 (08:31→19:19)
--- NOTE | 2022-04-29 11:03 | PC.NURSE ---
Dr. Johnson at bedside, plan to keep patient intubated another day due to large amounts of secretions in ET tube, HCP may consider bronch
[2022-04-29] MEDS: propofol 1,000 MG/100 ML INJ 20 MG IV ×2 (11:21→16:52)
--- NOTE | 2022-04-29 12:17 | PC.CHAP ---
Pastoral Care Encounter/Spiritual Assessment Type of Contact [] Declined interior design assistant visit [] Patient/Family/Request visit [] Outpatient visit [] Follow-up visit [] Physician referral [] Code/Alert [x] Routine visit [] Staff referral [] Actively dying [x] Patient sleeping [] Family support [] [] Out of room [] Palliative care [] [] Receiving care in room [] Pre-surgical visit [] Trauma [] Long length of stay [x] ICU visit [x] Other: vent Relational/Emotional Strength [] Patient feels connected with others/family/visitors/staff [] Distress [] Loneliness/isolation [] Abandonment Spirituality of Patient [] Person of Kimmie [] Attends Lutheran of their Kimmie [] Believes in Prayer [] Reads Bible or Bahai materials [] There are Spiritual issues to be addressed [employer] Interventions [x] Prayer [] Active listening [] Non-anxious presence [] Spiritual/emotional support [] Crisis/trauma care [] Spiritual counseling [] Bereavement support [] Provided bereavement packet [] Provided Bible/devotional materials [] Provided toy/stuffed animal, coloring book to patient or family member [] Provided Communion [] Anointing/[place] [] Salvation [x] Completed spiritual assessment [] Other: Impact on Illness or Injury [] Angry [] Fearful [] Anxious [] Often cries [] Exhaustion [] Unable to work [] Unable to attend confucianist [] Unable to walk/stand [] Unable to read [] Unable to drive [] Unable to eat/drink [] Unable to sleep [] Unable to be with family [] Patient intubated [] Other: Summary Time spent with patient
[2022-04-29] MEDS: enoxaparin 40 mg/0.4 mL Syringe SUBCUT (15:21)
--- NOTE | 2022-04-29 15:34 | PM.PN ---
Subjective Subjective: T-max 100.6 Fahrenheit. Patient noted to be very diaphoretic at the time of assessment. Versed has been taken off. Patient is currently on fentanyl propofol and Precedex. Currently, on this combination, however does wince to pain. He is getting a spontaneous breathing trial this morning. Medications: Reviewed: Yes Vitals/I&O/Wt Last Vital Signs Temp 99.6 F 04/29/22 10:00 Pulse 65 04/29/22 15:00 Resp 18 04/29/22 14:18 BP 128/76 04/29/22 15:00 Pulse Ox 98 04/29/22 15:00 O2 Del Method 04/29/22 05:00 O2 Flow Rate 3 04/24/22 20:00 FiO2 40 04/29/22 14:18 04/29/22 04/29/22 04/29/22 06:59 14:59 22:59 Intake Total 488.9 / 2972.209 392.315 / 392.315 80.42 / 472.735 Output Total 650 / 2450 Balance -161.1 / 522.209 392.315 / 392.315 80.42 / 472.735 Weight last 48 hrs Weight 116.828 kg Weight 117.934 kg Physical Exam Narrative: General: intubated, sedated HEENT: PERRLA, pupils bilaterally equal and reactive, pallors not present Chest: Bilateral coarse crackles to auscultation. CVS: S1-S2 regular, no murmurs, no tachycardia, no gallops, no rubs Abdomen: Soft, nontender, no organomegaly, bowel sounds present Neuro: intubated, sedated Urinary Catheter Management: Rowe: Cath Placed During This Visit: yes Reason for Continuing Indwelling Catheter: Accurate Measurement of Urinary Output in Critically Ill Patients Urinary Catheter Date of Insertion: 04/24/22 Urinary Catheter Time of Insertion: 20:30 Data 04/28/22 03:14 04/28/22 03:14 A&P Assessment and plan (1) Substance abuse: (2) Essential hypertension: (3) Psychiatric care: (4) Rhabdomyolysis: (5) CAD (coronary artery disease): (6) Anxiety and depression: (7) Diabetes mellitus, with long-term current use of insulin: (8) GERD (gastroesophageal reflux disease): (9) Schizophrenia: (10) H/O heart valve replacement with bioprosthetic valve: (11) Ventilator dependent: (12) Drug overdose: (13) Suicide attempt: (14) Combative behavior: (15) Agitation: (16) Alcohol abuse: (17) Obstructive sleep apnea: (18) Lacerations of multiple sites without complication: Plan #Polysubstance abuse Currently admitted since April 24 after presenting to the emergency room with acute overdose with reportedly heroin and methamphetamine and possibly gasoline. Urine tox screen is positive for amphetamines, benzos, marijuana, alcohol. Negative for salicylates. - Poison control contacted by ER. -He was on high doses of fentanyl, propofol, Versed and Precedex. Versed has now been discontinued. He is continuing on fentanyl propofol and Precedex. Currently calm. On a spontaneous breathing trial. He is very diaphoretic. Suspect that this is related to polysubstance withdrawal. For now we will continue to keep him sedated and mechanically ventilated. Resumed aripiprazole 10 mg daily, , olanzapine 10 mg twice daily. Trazodone 50 at bedtime. resumed olanzapine 10mg BID and trazodone 50mg bedtime on 04/26. Will resume buspirone #Bilateral pneumonia -CT chest with evidence of bilateral lower lobe consolidation. Likely to represent aspiration pneumonia given clinical history Blood culture negative thus far from 04/24/2022. Has a history of MRSA and haemophilus positive sputum culture from July 2021. He is currently on zsyn and vancomycin, gievn ongoing fevr, will change to meropenem and vancomycin Antibiotic day 6 today. check blood cx again given ongoing fevr, high risk of endocarditis. Will check echo for vegetation s #Metabolic acidosis most likely secondary to drug intoxication #Mild rhabdomyolysis Now resolved Continue IVF NS @ 50cc/ hr urine output 1.1L #Obstructive sleep apnea -May need cpap at de, or sleep study is does not have one already. #Type 2 diabetes mellitus, insulin-dependent -Continue on low-dose intensity sliding scale every 6 hours. #History of coronary artery disease #History of aortic valve replacement #Hypertension ? Patient on lisinopril 20 mg daily at home. Holding antihypertensives for now. Currently MAp ranging between 60-65. DVT prophylaxis: lovenox 40 s/c Diet: NGT in place, starting tube feeds 04/29 PUD ppx: protonix 40mg Full code Attestations Medical Necessity Statement*: Needs continued admission for ventilator dependent respiratory failure, polysubstance withdrawal, slow weaning, starting tube feeds today. Coding Level of Care Code Acute Acrobatic Dancer for [facility] Fwd Diagnoses Substance abuse F19.10 Essential hypertension I10 Psychiatric care Rhabdomyolysis M62.82 CAD (coronary artery disease) I25.10 Anxiety and depression F41.9; F32.A Diabetes mellitus, with long-term current use of insulin E11.9; Z79.4 GERD (gastroesophageal reflux disease) K21.9 Schizophrenia F20.9 H/O heart valve replacement with bioprosthetic valve Z95.3 Ventilator dependent Z99.11 Drug overdose T50.901A Suicide attempt T14.91XA Combative behavior R46.89 Agitation R45.1 Alcohol abuse F10.10 Obstructive sleep apnea G47.33 Lacerations of multiple sites without complication T07.XXXA
--- NOTE | 2022-04-29 15:59 | XRR_ITS ---
PROCEDURE INFORMATION: Exam: XR Chest Exam date and time: 04/29/2022 4:04 PM Age: 52 years old Clinical indication: Condition or disease; Lung condition and disease; Other: Infiltrate; Additional info: Follow up lung infiltrates, lines TECHNIQUE: Imaging protocol: Radiologic exam of the chest. Views: 1 view. COMPARISON: CR (CHEST, ) 04/27/2022 5:13 AM FINDINGS: Tubes, catheters and devices: Intubation with tip approximately 2.2 cm above the gabriel. Heart valve prosthesis. Gastric tube unchanged with tip in the fundus of the stomach. Lungs: Improved ventilation of the left lung base with discoid atelectasis. Stable mild atelectasis in the right lung base. Shallow ventilation. Pleural spaces: Unremarkable. No pleural effusion. No pneumothorax. Heart/Mediastinum: Unremarkable. No cardiomegaly. Bones/joints: Sternotomy wires. XR/XR chest 1V portable [id number] IMPRESSION: Basilar atelectasis, improved on the left.
--- NOTE | 2022-04-29 16:03 | USCV_ITS ---
Shree Hickman Age: 52 Gender: M : 1970 Exam Date: 04/29/2022 16:57 Ordering Phys: Maria Elena Johnson MD Technologist: ALEXX [place]am [place] [facility] [place]: EVAL FOR VEG BP: 131 / 77 HR: 64 Rhythm: Sinus Technical Quality: Suboptimal MEASUREMENTS (Male / Female) Normal Values 2D ECHO LVOT Diameter 2.0 cm LV Ejection Fraction MOD 2C 71.1 % LV Ejection Fraction 2C AL 71.6 % LA Diameter 3.8 cm LA Width 3.6 cm LA Height 4.3 cm RA Width 4.4 cm RA Height 4.6 cm Aorta at Sinotubular Diameter 1.5 cm M-MODE Aortic Annulus Diameter 3.2 cm LA Ao Ratio MM 1.1 MV E Point Septal Separation 0.1 cm DOPPLER AV Peak Velocity 253.7 cm/s LVOT Peak Velocity 137.0 cm/s AV Area Cont Eq vti 2.2 cm squared AV Area Cont Eq pk 1.7 cm squared MV Peak Velocity 104.0 cm/s MV Area PHT 2.9 cm squared Mitral E to A Ratio 1.2 MV E' Velocity 49.5 cm/s Mitral E to MV E' Ratio 9.5 Mitral E to LV E' Lateral Ratio 8.0 Mitral E to LV E' Septal Ratio 11.9 TV Peak E Velocity 56.0 cm/s Right Atrial Pressure 8.0 mmHg PV Peak Velocity 115.0 cm/s RV Acceleration Time 0.1 s RV Ejection Time 0.3 s RV AcT/ET 0.4 FINDINGS Left Ventricle Technically limited quality echocardiogram because of poor ultrasonic windows. Grossly LV systolic function is normal. Regional wall motion abnormalities cannot be accurately assessed because of poor windows Right Ventricle Normal in size and function Right Atrium Normal in size Left Atrium Normal in size Mitral Valve Grossly normal. No significant stenosis. Trace mitral regurgitation. Aortic Valve Not well visualized. Mild aortic stenosis with LOIS of 2.2cm2 and mean gradient across aortic valve of 11.8mmHg. Mild aortic regurgitation. Tricuspid Valve Not well visualized. Pulmonic Valve Not well visualized Pericardium Grossly normal Aorta Normal in size IVC Not well visualized CONCLUSIONS Technically limited quality echocardiogram because of poor ultrasonic windows. Grossly LV systolic function is normal. Regional wall motion abnormalities cannot be accurately assessed because of poor ultrasonic windows. Valvular structures are not well visualized. Trace mitral regurgitation Mild aortic stenosis. No comparison studies are available Deny Denny MD (Electronically Signed) Final Date: 30 April 2022 09:08 S
[2022-04-29] MEDS: meropenem 1,000 MG in sodium chloride 0.9% (plus) 50 ML 100 MG IV ×2 (16:50→23:18)
[2022-04-29] MEDS: propofol 1,000 MG/100 ML INJ 53.34 MG IV ×3 (19:19→23:17)
--- NOTE | 2022-04-29 19:22 | PC.NURSE ---
Addendum entered by Meghna Lizarraga RN 04/29/22 20:57: witnessed waste with STANFORD Castellano Original Note: Wasted 50 ml of versed hanging in room
[2022-04-29] MEDS: trazodone 50 mg Tablet OG-TUBE (20:55)
[2022-04-29] MEDS: BuSPIRONE 10 mg Tablet PO (20:56)
[2022-04-29] MEDS: acetaminophen 325 mg Tablet 650 MG PO (21:49)
[2022-04-30] VITALS (39 sets, daily range): BP systolic 94–132; BP diastolic 38–74; PULSE 64–82; RESP 15–25; TEMP 38.2–39.5; O2SAT 88–100; BMI 38.7
[2022-04-30] MEDS: dexmedeTOMIDine 0.9 % NaCL 400 MCG/100 ML PREMIX 25.53 MCG IV (00:05)
[2022-04-30] MEDS: propofol 1,000 MG/100 ML INJ 53.34 MG IV ×11 (01:01→20:42)
[2022-04-30] MEDS: vancomycin 1,250 MG/250 ML PIGGYBACK 250 MG IV ×3 (01:01→17:53)
[2022-04-30] MEDS: chlorhexidine gluconate 4% Btl 118 mL 1 APPLIC TOPICAL (02:08)
[2022-04-30] MEDS: dexmedeTOMIDine 0.9 % NaCL 400 MCG/100 ML PREMIX IV (02:48)
--- NOTE | 2022-04-30 06:05 | PC.NURSE ---
New Orders Received Patient resp. rate increased, ventilator alarming due to patient over breathing vent. Informed manufacturing shift supervisor hospitalist that Propofol and Fentanyl infusing at maximum rate per facility protocol, received orders for IVP Ativan 2mg ONE time.
[2022-04-30] MEDS: LORazepam 2 mg/mL INJ 1 mL IVP (06:14)
--- NOTE | 2022-04-30 06:15 | PC.NURSE ---
Tube Feedings Gastric residual noted to be 200 with tube feedings infusing at a rate of 20 mls/hr, informed material handler 1st shift hospitalist who gave orders to pause tube feeds at this time due to high gastric residual.
[2022-04-30] MEDS: acetaminophen 325 mg Tablet 650 MG PO ×2 (06:24→13:46)
[2022-04-30] MEDS: dexmedeTOMIDine 0.9 % NaCL 400 MCG/100 ML PREMIX 28.36 MCG IV ×5 (07:20→21:07)
[2022-04-30] MEDS: meropenem 1,000 MG in sodium chloride 0.9% (plus) 50 ML 100 MG IV ×3 (07:35→23:38)
--- NOTE | 2022-04-30 08:01 | PC.NURSE ---
Fever 102.6, 2 ice packs placed on left side, will rotate every 20 minutes and monitor skin and temp. Already aware of fever.
[2022-04-30] MEDS: ARIPiprazole 10 mg Tablet PO (08:04)
[2022-04-30] MEDS: OLANZapine 10 mg TABLET OG-TUBE ×2 (08:04→17:53)
[2022-04-30] MEDS: BuSPIRONE 10 mg Tablet PO ×3 (08:04→20:58)
[2022-04-30] MEDS: pantoprazole 40 mg SDV IVP (08:04)
[2022-04-30 08:41] LABS: Basophils % 0.3 %; Hematocrit 50.5 % (42.0-52.0); Hemoglobin 16.4 g/dL (11.7-16.6); Lymphocytes # 0.4 10^3/uL (0.8-4.8); Lymphocytes % 9.6 %; Mean Corpuscular HGB Conc 32.5 g/dL (30.0-36.0); Mean Corpuscular Volume 92.5 fl (80-94); Monocytes # 0.3 10^3/uL (0.2-0.9); Neutrophils # 3.14 10^3/uL (1.8-7.7); Neutrophils % 81.6 %; Nucleated Red Blood Cells % 0 %; Platelet Count 106 10^3/cmm (130-400); Red Blood Count 5.46 10^6/uL (4.1-5.3); Red Cell Distribution Width 12.4 % (12.1-15.1); White Blood Count 3.9 10^3/uL (4.0-10.0)
--- NOTE | 2022-04-30 08:52 | PC.NUTR ---
TF consult received. MD ordered Osmolite 1.2 starting @ 10 mls/hr and increasing 10 mls Q6H. Current TF in chart is Jevity 1.2 @ 10 mls which was stopped r/t residual of 200 mls. When medically appropriate, recommend restarting TF using Osmolite 1.2 @ 10 mls/hr and increasing 10 mls Q8H as tolerated until goal rate of 30 mls/hr is reached with water flushes of 150 mls Q4H or per MD discretion. Details in RD assessment.
[2022-04-30 08:54] LABS: Vancomycin Trough 11.7 ug/mL (10-15)
[2022-04-30 08:59] LABS: Albumin Level 2.7 g/dL (3.5-5.2); Blood Urea Nitrogen 11 mg/dL (6-20); Calcium 8.3 mg/dL (8.5-10.5); Carbon Dioxide 15 mmol/L (22-29); Chloride 108 mmol/L (98-107); Globulin 3.2 g/dL (1.3-4.6); Glomerular Filtration Rate 119.4 mL/min (90-130); Glucose 189 mg/dL (65-115); Osmolality Calculated 286 mOsm/kg (285-295); Sodium 136 mmol/L (136-145); Total Bilirubin 0.3 mg/dL (0.15-1.2); Total Protein 5.9 g/dL (6.6-8.7)
[2022-04-30 09:06] LABS: Anion Gap 17.9 (5-19); Potassium 4.9 mmol/L (3.5-5.1)
[2022-04-30 09:07] LABS: Alanine Aminotransferase 9 U/L (0-41); Alkaline Phosphatase 67 U/L (40-130); Aspartate Amino Transferase 32 U/L (0-40)
--- NOTE | 2022-04-30 09:31 | XRR_ITS ---
PROCEDURE INFORMATION: Exam: XR Abdomen Exam date and time: 04/30/2022 9:43 AM Age: 52 years old Clinical indication: Patient HX: Fever, possible sepsis, od; Additional info: Ileus TECHNIQUE: Imaging protocol: Radiologic exam of the abdomen. Views: Frontal supine view of the abdomen. 1 View. COMPARISON: CT chest abdpel [id number] 04/25/2022 10:04 AM FINDINGS: Tubes, catheters and devices: NG tube is only partially imaged but again likely terminates in the gastric fundus as seen on prior studies. Gastrointestinal tract: Nonobstructive bowel gas pattern. Bones/joints: Unremarkable. XR/XR abdomen 1V* [id number] IMPRESSION: No acute findings.
--- NOTE | 2022-04-30 09:31 | XR_ITS ---
WS: [id number] XR chest 1V portable [id number] REASON FOR EXAM: follow up pneumonia FINDINGS: Sternal sutures and prosthetic aortic valve. Endotracheal tube tip is just above the gabriel. Nasogastric tube tip is below the diaphragm. Opacified left lower hemithorax better aerated with ill-defined patchy lung opacities. Both lungs better expanded. Continued central vascular congestion. XR/XR chest 1V portable [id number] IMPRESSION: Improved lung aeration.
--- NOTE | 2022-04-30 09:36 | PM.PN ---
Subjective Subjective: Febrile to 103 Fahrenheit overnight. Blood cultures have been taken. He is off Versed. Currently on fentanyl propofol and Precedex. Diaphoretic but calm. Overbreathing the ventilator. Medications: Reviewed: Yes Vitals/I&O/Wt Last Vital Signs Temp 98.3 F 04/30/22 09:33 Pulse 79 04/30/22 09:00 Resp 16 04/30/22 09:00 BP 117/60 04/30/22 09:00 Pulse Ox 94 04/30/22 09:00 O2 Del Method 04/30/22 09:00 O2 Flow Rate 3 04/24/22 20:00 FiO2 40 04/30/22 09:00 04/29/22 04/30/22 04/30/22 22:59 06:59 14:59 Intake Total 778.285 / 0358.754 0524.349 / 2996.949 152.747 / 152.747 Output Total 850 / 850 1000 / 1850 Balance -71.715 / 620.600 526.349 / 1146.949 152.747 / 152.747 Weight last 48 hrs Weight 115.383 kg Weight 116.828 kg Physical Exam Narrative: General: intubated, sedated HEENT: PERRLA, pupils bilaterally equal and reactive, pallors not present Chest: Bilateral coarse crackles to auscultation. CVS: S1-S2 regular, no murmurs, no tachycardia, no gallops, no rubs Abdomen: Soft, mildly distended, no organomegaly, hypoactive bowel sounds present Neuro: intubated, sedated Urinary Catheter Management: Rowe: Cath Placed During This Visit: yes Reason for Continuing Indwelling Catheter: Accurate Measurement of Urinary Output in Critically Ill Patients Urinary Catheter Date of Insertion: 04/24/22 Urinary Catheter Time of Insertion: 20:30 Data 04/30/22 08:14 04/30/22 08:14 Micro: Microbiology 04/30/22 08:18 Blood Culture - Preliminary Blood SPECIMEN COLLECTED 04/30/22 08:14 Blood Culture - Preliminary Blood SPECIMEN COLLECTED 04/24/22 20:25 Blood Culture - Final Blood NO GROWTH AFTER 5 DAYS 04/24/22 20:30 Blood Culture - Final Blood NO GROWTH AFTER 5 DAYS A&P Assessment and plan (1) Substance abuse: (2) Essential hypertension: (3) Psychiatric care: (4) Rhabdomyolysis: (5) CAD (coronary artery disease): (6) Anxiety and depression: (7) Diabetes mellitus, with long-term current use of insulin: (8) GERD (gastroesophageal reflux disease): (9) Schizophrenia: (10) H/O heart valve replacement with bioprosthetic valve: (11) Ventilator dependent: (12) Drug overdose: (13) Suicide attempt: (14) Combative behavior: (15) Agitation: (16) Alcohol abuse: (17) Obstructive sleep apnea: (18) Lacerations of multiple sites without complication: Plan #Polysubstance abuse Currently admitted since April 24 after presenting to the emergency room with acute overdose with reportedly heroin and methamphetamine and possibly gasoline. Urine tox screen is positive for amphetamines, benzos, marijuana, alcohol. Negative for salicylates. - Poison control contacted by ER. - He is continuing on fentanyl propofol and Precedex. Currently calm. On a spontaneous breathing trial. He is very diaphoretic. Suspect that this is related to polysubstance withdrawal. For now we will continue to keep him sedated and mechanically ventilated. Resumed aripiprazole 10 mg daily, , olanzapine 10 mg twice daily. Trazodone 50 at bedtime and buspirone which are his reported home medications. -will check ABG, CXR today , wean off sedation and attempt to extubate # Fever , possible sepsis Developing fever to 103F and also thrombocytopenia and leukopenia. Findings concerning for developing sepsis. He has multiple potential sources of infection Diagnosed with aspiration pnuemonia upon admission treated with Zosyn/Vancomycin ---> changed to meropenem and vancomycin on 04/29 with recurrence of fever. CXR showing improving infiltrates Sputum cx with coag neg staph, h/o MRSA, currenlty both appropriately covered blood cx taken , previously negative no indwelling iv lines Rowe will be changed , covered for possible UTI empirically echo taken, results pending TTE #Bilateral pneumonia -CT chest with evidence of bilateral lower lobe consolidation. CXR shows serial improvement #Metabolic acidosis most likely secondary to drug intoxication #Mild rhabdomyolysis Now resolved #Obstructive sleep apnea -May need cpap at dc, or sleep study is does not have one already. #Type 2 diabetes mellitus, insulin-dependent -Continue on low-dose intensity sliding scale every 6 hours. #History of coronary artery disease #History of aortic valve replacement #Hypertension ? Patient on lisinopril 20 mg daily at home. Holding antihypertensives for now. Currently MAp ranging between 60-65. DVT prophylaxis: lovenox 40 s/c Diet: NGT in place, starting tube feeds 04/29 PUD ppx: protonix 40mg Full code Attestations Medical Necessity Statement*: respiratory failure needing mechanical ventilation, iv abx, fever possible sepsis evelaution, polysubstance withdrawal Critical Care Time: The high probability of a clinically significant, sudden or life threatening deterioration of the patient's [cardiac, respiratory,metabolic ] system(s) required my full and direct attention, intervention and personal management. The critical care time is as shown. This time is in addition to time spent performing any reported procedures but includes the following: [x] Data and vital sign review and interpretation [x] Patient assessment, examination and intervention [x] Documentation [x] Medication orders and management Critical Care Time (min): 45 Coding Level of Care Code Acute Chief Technical Officer for [facility] Fwd Diagnoses Substance abuse F19.10 Essential hypertension I10 Psychiatric care Rhabdomyolysis M62.82 CAD (coronary artery disease) I25.10 Anxiety and depression F41.9; F32.A Diabetes mellitus, with long-term current use of insulin E11.9; Z79.4 GERD (gastroesophageal reflux disease) K21.9 Schizophrenia F20.9 H/O heart valve replacement with bioprosthetic valve Z95.3 Ventilator dependent Z99.11 Drug overdose T50.901A Suicide attempt T14.91XA Combative behavior R46.89 Agitation R45.1 Alcohol abuse F10.10 Obstructive sleep apnea G47.33 Lacerations of multiple sites without complication T07.XXXA
--- NOTE | 2022-04-30 11:38 | PC.CHAP ---
Pastoral Care Encounter/Spiritual Assessment Type of Contact [] Declined v belt builder visit [] Patient/Family/Request visit [] Outpatient visit [] Follow-up visit [] Physician referral [] Code/Alert [x] Routine visit [] Staff referral [] Actively dying [x] Patient sleeping [] Family support [] [] Out of room [] Palliative care [] [] Receiving care in room [] Pre-surgical visit [] Trauma [] Long length of stay [x] ICU visit [x] Other: vent Relational/Emotional Strength [] Patient feels connected with others/family/visitors/staff [] Distress [] Loneliness/isolation [] Abandonment Spirituality of Patient [] Person of Kimmie [] Attends Lutheran of their Kimmie [] Believes in Prayer [] Reads Bible or Islam materials [] There are Spiritual issues to be addressed Hot Dip Plating Supervisor Interventions [x] Prayer [] Active listening [] Non-anxious presence [] Spiritual/emotional support [] Crisis/trauma care [] Spiritual counseling [] Bereavement support [] Provided bereavement packet [] Provided Bible/devotional materials [] Provided toy/stuffed animal, coloring book to patient or family member [] Provided Communion [] Anointing/[place] [] Salvation [x] Completed spiritual assessment [] Other: Impact on Illness or Injury [] Angry [] Fearful [] Anxious [] Often cries [] Exhaustion [] Unable to work [] Unable to attend orthodox [] Unable to walk/stand [] Unable to read [] Unable to drive [] Unable to eat/drink [] Unable to sleep [] Unable to be with family [] Patient intubated [] Other: Summary Time spent with patient
--- NOTE | 2022-04-30 12:14 | PM.CONSULT ---
Providers/Reason For Consult Consulting Physician/Specialty*: Dr. Byrne, Cardiology Reason for Consult*: ARSEN for persistent temperature spike, h/o AVR Attending Physician: Maria Elena Johnson MD Primary Care Provider: Nba Rascon MD History of Present Illness History of Present Illness Shree Hickman is a 52 year old male with a past medical history of aortic valve replacement for infective endocarditis possibly, history of intermittent explosive disorder, anxiety, depression, type 2 diabetes mellitus, hypertension, hyperlipidemia, ? CAD, history of drug abuse, obstructive sleep apnea, morbid obesity presented to the hospital for a suicide attempt.? Patient is positive for meth, benzodiazepine, marijuana.?He was combative and agitated and needed intubation. Since admission, he has been spiking fever. Blood cx negative so far but TTE was difficult and valves could not be well visualized. Review of Systems General: Reports: 10 or more systems reviewed and unremarkable except in HPI and below and ROS unobtainable due to endotracheal tube Medications/Allergies Home Medications Medication Instructions Recorded Confirmed Last Taken Type Unable to Assess 04/25/22 04/25/22 Unknown History Allergies Allergy/AdvReac Type Severity Reaction Status Date / Time ketamine Allergy Severe ADR-Agitate Verified 12/08/21 20:23 d Penicillins Allergy Severe Unknown Verified 12/08/21 20:23 Current Medications Generic Name Dose Route Start Last Admin Trade Name Freq PRN Reason Stop Dose Admin Acetaminophen 650 mg 04/26/22 15:24 04/30/22 06:24 Acetaminophen 325 Mg Tablet PO 650 mg Q6H PRN Administration MILD PAIN Aripiprazole 10 mg 04/30/22 09:00 04/30/22 08:04 Aripiprazole 10 Mg Tablet PO 10 mg DAILY ROMA Administration Buspirone HCl 10 mg 04/29/22 21:00 04/30/22 08:04 Buspirone 10 Mg Tablet PO 10 mg TID ROMA Administration Chlorhexidine Gluconate 1 applic 04/25/22 02:00 04/30/22 02:08 Chlorhexidine Gluconate 4% Btl 118 Ml TOPICAL 1 applic Q24H ROMA Administration Enoxaparin Sodium 40 mg 04/26/22 15:00 04/29/22 15:21 Enoxaparin 40 Mg/0.4 Ml Syringe SUBCUT 40 mg Q24H ROMA Administration Fentanyl 1,000 mcg/ Sodium 100 mls @ 0 mls/hr 04/24/22 20:00 04/26/22 12:12 Chloride IV 150 mcg/hr .Q0M ROMA 15 mls/hr Administration Protocol Per Protocol Propofol 1,000 mg in 100 mls @ 0 mls/hr 04/24/22 20:15 04/30/22 12:12 Diprivan IV 80 mcg/kg/min .Q0M ROMA 53.34 mls/hr Administration Protocol Per Protocol Dexmedetomidine/Sodium Chloride 400 mcg in 100 mls @ 0 mls/hr 04/26/22 06:30 04/30/22 10:37 Precedex IV 1 mcg/kg/hr .Q0M ROMA 28.36 mls/hr Administration Protocol Per Protocol Vancomycin/PEG/NADA/Lysine/Water 1,250 mg in 250 mls @ 250 mls/hr 04/26/22 17:00 04/30/22 10:58 Vancocin IV Infused Q8H ROMA Infusion Fentanyl 2,500 mcg/ Sodium 250 mls @ 0 mls/hr 04/26/22 18:45 04/30/22 05:00 Chloride IV 150 mcg/hr .Q0M ROMA 15 mls/hr Titration Protocol Per Protocol Meropenem 1,000 mg/ Sodium 50 mls @ 100 mls/hr 04/29/22 16:00 04/30/22 09:11 Chloride IV Infused Q8H ROMA Infusion Olanzapine 10 mg 04/26/22 10:30 04/30/22 08:04 Olanzapine 10 Mg Tablet OG-TUBE 10 mg BID ROMA Administration Pantoprazole Sodium 40 mg 04/25/22 09:00 04/30/22 08:04 Pantoprazole 40 Mg Sdv IVP 40 mg DAILY ROMA Administration Trazodone HCl 50 mg 04/26/22 21:00 04/29/22 20:55 Trazodone 50 Mg Tablet OG-TUBE 50 mg BEDTIME ROMA Administration PFSH Acute PFSH: Medical History (Updated 04/30/22 @ 20:10 by Radha Byrne MD) Anxiety and depression Bowel obstruction CAD (coronary artery disease) Cellulitis and abscess of left leg Diabetes mellitus, with long-term current use of insulin Essential hypertension GERD (gastroesophageal reflux disease) Hepatitis C History of bacterial endocarditis Homicidal ideation Psychiatric care Psychosis Respiratory failure Septic arthritis due to Streptococcus species Suicidal ideation Surgical History History of aortic valve replacement with bioprosthetic valve History of heart valve replacement History of mitral valve replacement with bioprosthetic valve Family History Other Diabetes No significant family history Social History Smoking and tobacco status: unknown if ever smoked Alcohol intake: current Alcohol intake frequency: holidays/special occasions only Housing: Other Details: Homeless Current occupational status: unemployed Vitals/I&O/Wt Last Vital Signs Temp 101.9 F H 04/30/22 09:33 Pulse 78 04/30/22 10:00 Resp 22 H 04/30/22 11:28 BP 119/60 04/30/22 10:00 Pulse Ox 94 04/30/22 11:28 O2 Del Method 04/30/22 10:00 O2 Flow Rate 3 04/24/22 20:00 FiO2 40 04/30/22 11:28 04/29/22 04/30/22 04/30/22 22:59 06:59 14:59 Intake Total 778.285 / 4138.429 7716.349 / 2996.949 680.317 / 680.317 Output Total 850 / 850 1000 / 1850 Balance -71.715 / 620.600 526.349 / 1146.949 680.317 / 680.317 Weight last 48 hrs Weight 254 lb 6 oz Weight 257 lb 9 oz Physical Exam Narrative: Gen: Patien intubated and sedated HEENT/Neck: No pallor or icterus RS: CTA anteriorly, intermittent crackles+ CVS: S1, S2 regular, systolic murmur+ in aortic area, No rub or gallop Ext: No edema, cool feet KIDNEY PULLER: intubated and sedated Urinary Catheter Management: Rowe: Cath Placed During This Visit: yes Reason for Continuing Indwelling Catheter: Accurate Measurement of Urinary Output in Critically Ill Patients Urinary Catheter Date of Insertion: 04/24/22 Urinary Catheter Time of Insertion: 20:30 Data 04/30/22 08:14 04/30/22 08:14 Micro: Microbiology 04/30/22 08:18 Blood Culture - Preliminary Blood SPECIMEN COLLECTED 04/30/22 08:14 Blood Culture - Preliminary Blood SPECIMEN COLLECTED 04/24/22 20:25 Blood Culture - Final Blood NO GROWTH AFTER 5 DAYS 04/24/22 20:30 Blood Culture - Final Blood NO GROWTH AFTER 5 DAYS A&P Assessment and plan (1) Suicide attempt: (2) Drug overdose: (3) Alcohol abuse: (4) History of bacterial endocarditis: Given h/o persistent high grade fever and h/o bacterial endocarditis per chart. TDS echo. -ARSEN planned for better assessment of Bio AVR and to r/o endocarditis -Emergency consent obtained as patient is sedated and confused and their is no family available. (5) H/O heart valve replacement with bioprosthetic valve: (6) CAD (coronary artery disease): (7) Essential hypertension: (8) Diabetes mellitus, with long-term current use of insulin: Procedures Time out/Consent Time Out Performed: Yes Consent for Procedure: Emergency procedure Procedure Narrative Prelim: Normal LV function. No vegetation noted on valves. Full report to follow Coding Level of Care Code Acute Sales Representative Business Courses for g Fwd Diagnoses Suicide attempt T14.91XA Drug overdose T50.901A Alcohol abuse F10.10 History of bacterial endocarditis Z86.79 H/O heart valve replacement with bioprosthetic valve Z95.3 CAD (coronary artery disease) I25.10 Essential hypertension I10 Diabetes mellitus, with long-term current use of insulin E11.9; Z79.4
[2022-04-30 13:37] LABS: Glucose Point of Care 215 mg/dL (70-110)
[2022-04-30] MEDS: enoxaparin 40 mg/0.4 mL Syringe SUBCUT (13:46)
--- NOTE | 2022-04-30 16:00 | USCV_ITS ---
Shree Hickman Age: 52 Gender: M : 1970 Exam Date: 04/30/2022 16:09 Ordering Phys: Maria Elena Johnson MD Technologist: ALEXX Exam Location: [facility] [place] Indication: SUSPECTED ENDOCARDITIS , h/o AVR BP: 105 / 54 HR: 73 Rhythm: Sinus Technical Quality: Adequate MEASUREMENTS (Male / Female) Normal Values 2D ECHO LVOT Diameter 2.0 cm DOPPLER AV Peak Velocity 389.0 cm/s LVOT Peak Velocity 205.0 cm/s AV Area Cont Eq vti 1.8 cm squared AV Area Cont Eq pk 1.7 cm squared Medications Patient was intubated and sedated pre procedure, for details please refer to the patient's chart. Complications Intubation easy. Attempts x 2. Patient tolerated procedure well. No blood on probe post procedure. Proc. Components The ARSEN probe was passed into the posterior pharynx , mid- esophagus, distal esophagus, and gastric fundus. FINDINGS Left Ventricle Normal left ventricular size, systolic function and increased wall thickness, with no regional wall motion abnormalities. Left ventricular ejection fraction is estimated at 65 %. Right Ventricle Normal right ventricular size and systolic function. Right Atrium Normal right atrial size. Left Atrium Normal left atrial size. LA Appendage Normal left atrial appendage. No thrombus visualized in the left atrial appendage. IA Septum Normal interatrial septum. No patent foramen ovale. No evidence for an atrial septal defect. Mitral Valve Structurally normal mitral valve. No mitral valve stenosis. Trace mitral valve regurgitation. Trace mitral valve regurgitation. Aortic Valve Bioprosthetic aortic valve in situ. Bioprosthetic aortic valve peak velocity 3.6 m/s, peak gradient 51 mm Hg, mean gradient 27 mm Hg. AT 104 msec with rounded contour. DVI=0.5. 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 Trace aortic regurgitation. No evidence of vegetation. Tricuspid Valve Structurally normal tricuspid valve. No tricuspid valve stenosis. Trace tricuspid valve regurgitation. Pulmonic Valve Structurally normal pulmonic valve. Trace pulmonary valve regurgitation. Pericardium No pericardial effusion. Aorta Aortic root appeares dilated measured at 41 mm. No evidence of aortic dissection or significant atheroma. CONCLUSIONS 1. Normal left ventricular size, systolic function and increased wall thickness, with no regional wall motion abnormalities. Left ventricular ejection fraction is estimated at 65 %. 2. Possible bioprosthetic aortic valve stenosis with peak velocity 3.6 m/s, peak gradient 51 mm Hg, mean gradient 27 mm Hg. AT 104 msec with rounded contour. DVI=0.5. 3. 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 Trace aortic regurgitation. 4. No evidence of vegetation on this study. 5. Consider cardiac CTA for complete assessment of bioprosthetic aortc valve, R SOV aneurysm and aortic root. Radha Byrne MD (Electronically Signed) Final Date: 14 May 2022 07:26 S
[2022-04-30 18:17] LABS: Glucose Point of Care 190 mg/dL (70-110)
[2022-04-30] MEDS: acetaminophen 1,000 MG/100 ML PIGGYBACK 400 MG IV (19:27)
[2022-04-30] MEDS: trazodone 50 mg Tablet OG-TUBE (20:58)
[2022-04-30] MEDS: propofol 1,000 MG/100 ML INJ 46.68 MG IV (22:25)
[2022-05-01] VITALS (56 sets, daily range): BP systolic 99–217; BP diastolic 52–131; PULSE 63–132; RESP 12–32; TEMP 36.2–37.9; O2SAT 82–96; BMI 37.8
--- NOTE | 2022-05-01 | PC.NURSE ---
Tube Feed Dr. Szymanski contacted to verify tube feed order; order received to remain holding due to possibility of extubation today.
[2022-05-01] MEDS: dexmedeTOMIDine 0.9 % NaCL 400 MCG/100 ML PREMIX 28.36 MCG IV ×4 (00:24→10:39)
[2022-05-01] MEDS: vancomycin 1,250 MG/250 ML PIGGYBACK 250 MG IV ×2 (00:25→09:21)
[2022-05-01] MEDS: propofol 1,000 MG/100 ML INJ 46.68 MG IV ×2 (00:35→03:12)
[2022-05-01] MEDS: chlorhexidine gluconate 4% Btl 118 mL 1 APPLIC TOPICAL (01:08)
[2022-05-01 02:21] LABS: Glucose Point of Care 174 mg/dL (70-110)
[2022-05-01 03:15] LABS: Basophils % 0.2 %; Eosinophils # 0.1 10^3/uL (0.0-0.8); Eosinophils % 1.2 %; Hematocrit 35.9 % (42.0-52.0); Hemoglobin 12.1 g/dL (11.7-16.6); Lymphocytes # 1.1 10^3/uL (0.8-4.8); Lymphocytes % 12.6 %; Mean Corpuscular HGB Conc 33.7 g/dL (30.0-36.0); Mean Corpuscular Hemoglobin 30.9 pg (28.0-34.0); Mean Corpuscular Volume 91.6 fl (80-94); Monocytes # 0.8 10^3/uL (0.2-0.9); Monocytes % 9.1 %; Neutrophils # 6.52 10^3/uL (1.8-7.7); Neutrophils % 76.4 %; Nucleated Red Blood Cells % 0 %; Platelet Count 147 10^3/cmm (130-400); Positive C 1; Red Blood Count 3.92 10^6/uL (4.1-5.3); Red Cell Distribution Width 12.6 % (12.1-15.1); White Blood Count 8.5 10^3/uL (4.0-10.0)
[2022-05-01] MEDS: acetaminophen 1,000 MG/100 ML PIGGYBACK 400 MG IV ×2 (03:30→12:13)
[2022-05-01 04:01] LABS: Slide Review Slide Review Perform
[2022-05-01] MEDS: propofol 1,000 MG/100 ML INJ 40.01 MG IV (05:43)
[2022-05-01 07:42] LABS: Alanine Aminotransferase 10 U/L (0-41); Albumin Level 2.6 g/dL (3.5-5.2); Alkaline Phosphatase 66 U/L (40-130); Anion Gap 15.1 (5-19); Aspartate Amino Transferase 14 U/L (0-40); Blood Urea Nitrogen 14 mg/dL (6-20); Calcium 8.5 mg/dL (8.5-10.5); Carbon Dioxide 19 mmol/L (22-29); Chloride 109 mmol/L (98-107); Globulin 3.3 g/dL (1.3-4.6); Glomerular Filtration Rate 119.4 mL/min (90-130); Glucose 193 mg/dL (65-115); Osmolality Calculated 294 mOsm/kg (285-295); Potassium 4.1 mmol/L (3.5-5.1); Sodium 139 mmol/L (136-145); Total Bilirubin 0.2 mg/dL (0.15-1.2); Total Protein 5.9 g/dL (6.6-8.7)
[2022-05-01] MEDS: BuSPIRONE 10 mg Tablet PO ×2 (08:34→15:52)
[2022-05-01] MEDS: OLANZapine 10 mg TABLET OG-TUBE ×2 (08:34→17:31)
[2022-05-01] MEDS: ARIPiprazole 10 mg Tablet PO (08:34)
[2022-05-01] MEDS: meropenem 1,000 MG in sodium chloride 0.9% (plus) 50 ML 100 MG IV ×3 (08:34→23:58)
[2022-05-01] MEDS: pantoprazole 40 mg SDV IVP (08:34)
[2022-05-01] MEDS: propofol 1,000 MG/100 ML INJ 36.67 MG IV (08:35)
[2022-05-01 09:19] LABS: Glucose Point of Care 229 mg/dL (70-110)
--- NOTE | 2022-05-01 11:20 | PC.NURSE ---
Extubated at 1116 to 5lnc, patient awake but not talking, does follow simple commands. Nurse at bedside.
--- NOTE | 2022-05-01 12:43 | PC.CHAP ---
Pastoral Care Encounter/Spiritual Assessment Type of Contact [] Declined curb builder visit [] Patient/Family/Request visit [] Outpatient visit [] Follow-up visit [] Physician referral [] Code/Alert [x] Routine visit [] Staff referral [] Actively dying [] Patient sleeping [] Family support [] [] Out of room [] Palliative care [] [x] Receiving care in room [] Pre-surgical visit [] Trauma [] Long length of stay [x] ICU visit [x] Other: vent removed.. PT not social.. will revisit tomorrow Relational/Emotional Strength [] Patient feels connected with others/family/visitors/staff [] Distress [] Loneliness/isolation [] Abandonment Spirituality of Patient [] Person of Kimmie [] Attends Sikhism of their [place] [] Believes in Prayer [] Reads Bible or Sikh materials [] There are Spiritual issues to be addressed Sand Buffer Interventions [x] Prayer [] Active listening [] Non-anxious presence [] Spiritual/emotional support [] Crisis/trauma care [] Spiritual counseling [] Bereavement support [] Provided bereavement packet [] Provided Bible/devotional materials [] Provided toy/stuffed animal, coloring book to patient or family member [] Provided Communion [] Anointing/[place] [] Salvation [x] Completed spiritual assessment [] Other: Impact on Illness or Injury [] Angry [] Fearful [] Anxious [] Often cries [] Exhaustion [] Unable to work [] Unable to attend mormonism [] Unable to walk/stand [] Unable to read [] Unable to drive [] Unable to eat/drink [] Unable to sleep [] Unable to be with family [] Patient intubated [] Other: Summary Time spent with patient
[2022-05-01] MEDS: LORazepam 2 mg/mL INJ 1 mL IVP ×2 (13:53→22:37)
--- NOTE | 2022-05-01 14:06 | PM.PN ---
Subjective Subjective: With weaning of propofol and fentanyl, patient was awake, spontaneously breathing, successfully extubated to 5 L/min nasal cannula. He is still somewhat confused, intermittently agitated therefore continuing on Precedex infusion with as needed Ativan. He is maintaining his airway. T-max overnight 100.3 Fahrenheit. Medications: Reviewed: Yes Vitals/I&O/Wt Last Vital Signs Temp 98.8 F 05/01/22 13:00 Pulse 82 05/01/22 13:00 Resp 18 05/01/22 13:00 BP 152/73 05/01/22 13:00 Pulse Ox 95 05/01/22 13:00 O2 Del Method 05/01/22 13:00 O2 Flow Rate 5 05/01/22 13:00 FiO2 35 05/01/22 11:00 04/30/22 05/01/22 05/01/22 22:59 06:59 14:59 Intake Total 1101.312 / 2108.199 1084.346 / 3192.545 944.282 / 944.282 Output Total 500 / 500 850 / 1350 Balance 601.312 / 1608.199 234.346 / 1842.545 944.282 / 944.282 Weight last 48 hrs Weight 112.945 kg Weight 115.383 kg Physical Exam Narrative: General: No acute distress, AO x1 HEENT: PERRLA, pupils bilaterally equal and reactive, pallors not present Chest: Normal vesicular breath sounds, no added sounds, equal good air entry bilaterally CVS: S1-S2 regular, no murmurs, no tachycardia, no gallops, no rubs Abdomen: Soft, nontender, no organomegaly, bowel sounds present Neuro: No focal deficits, no facial deformity, AO x1 power 5/5 in all limbs Urinary Catheter Management: Rowe: Cath Placed During This Visit: yes Reason for Continuing Indwelling Catheter: Accurate Measurement of Urinary Output in Critically Ill Patients Urinary Catheter Date of Insertion: 04/24/22 Urinary Catheter Time of Insertion: 20:30 Data 05/01/22 02:48 05/01/22 06:55 Micro: Microbiology 04/30/22 08:18 Blood Culture - Preliminary Blood NEGATIVE TO DATE 04/30/22 08:14 Blood Culture - Preliminary Blood NEGATIVE TO DATE A&P Assessment and plan (1) Substance abuse: (2) Essential hypertension: (3) Psychiatric care: (4) Rhabdomyolysis: (5) CAD (coronary artery disease): (6) Anxiety and depression: (7) Diabetes mellitus, with long-term current use of insulin: (8) GERD (gastroesophageal reflux disease): (9) Schizophrenia: (10) H/O heart valve replacement with bioprosthetic valve: (11) Ventilator dependent: (12) Drug overdose: (13) Suicide attempt: (14) Combative behavior: (15) Agitation: (16) Alcohol abuse: (17) Obstructive sleep apnea: (18) Lacerations of multiple sites without complication: Plan #Polysubstance abuse Currently admitted since April 24 after presenting to the emergency room with acute overdose with reportedly heroin and methamphetamine and possibly gasoline. Urine tox screen is positive for amphetamines, benzos, marijuana, alcohol. Negative for salicylates. - Poison control contacted by ER. -Taken off propofol and fentanyl today, successfully extubated to 5 L/min nasal cannula. Protecting his airway. No issues currently with breathing. However patient is agitated and confused. Continuing on Precedex infusion and as needed Ativan added. Resumed aripiprazole 10 mg daily, , olanzapine 10 mg twice daily. Trazodone 50 at bedtime and buspirone which are his reported home medications. # Fever , possible sepsis Developing fever to 103F and also thrombocytopenia and leukopenia. Thrombocytopenia and leukopenia are currently resolved. He is continuing to have fever He has multiple potential sources of infection Diagnosed with aspiration pnuemonia upon admission treated with Zosyn/Vancomycin ---> changed to meropenem and vancomycin on 04/29 with recurrence of fever. CXR showing improving infiltrates, doubt that untreated pneumonia is the cause of his current symptoms. Sputum cx with coag neg staph, h/o MRSA, currenlty both appropriately covered blood cx taken , currently negative to date no indwelling iv lines Rowe will be removed echo taken, ARSEN additionally performed due to history of bioprosthetic heart valve mitral and aortic and high concern for endocarditis and an IV drug user. No vegetations noted. His aortic root did look dilated will need CTA cardiac as outpatient. Influenza negative upon admission. We will recheck a respiratory viral panel to evaluate for COVID, influenza, other viral illness as a cause of his current symptoms. Alternatively propofol may have been a cause of ongoing fever. The same has been discontinued today. We will monitor for improvement #Bilateral pneumonia -CT chest with evidence of bilateral lower lobe consolidation. CXR shows serial improvement Continue meropenem and vancomycin #Metabolic acidosis most likely secondary to drug intoxication #Mild rhabdomyolysis Now resolved #Obstructive sleep apnea -Sleep study as outpatient #Type 2 diabetes mellitus, insulin-dependent -Continue on low-dose intensity sliding scale every 6 hours. Resume diet today now that extubated. #History of coronary artery disease #History of aortic valve replacement #Hypertension ? Patient on lisinopril 20 mg daily at home. Holding antihypertensives for now. Currently MAp ranging between 60-65. DVT prophylaxis: lovenox 40 s/c Diet: NGT in place, starting tube feeds 04/29 PUD ppx: protonix 40mg Full code Attestations Medical Necessity Statement*: Extubated today, still with some agitation, needs close neuro monitoring, polysubstance withdrawal care Critical Care Time: The high probability of a clinically significant, sudden or life threatening deterioration of the patient's [respiratory, cardiac] system(s) required my full and direct attention, intervention and personal management. The critical care time is as shown. This time is in addition to time spent performing any reported procedures but includes the following: [x] Data and vital sign review and interpretation [x] Patient assessment, examination and intervention [x] Documentation [x] Medication orders and management Coding Level of Care Code Acute Director Of Online Merchandising for [facility] Fwd Diagnoses Substance abuse F19.10 Essential hypertension I10 Psychiatric care Rhabdomyolysis M62.82 CAD (coronary artery disease) I25.10 Anxiety and depression F41.9; F32.A Diabetes mellitus, with long-term current use of insulin E11.9; Z79.4 GERD (gastroesophageal reflux disease) K21.9 Schizophrenia F20.9 H/O heart valve replacement with bioprosthetic valve Z95.3 Ventilator dependent Z99.11 Drug overdose T50.901A Suicide attempt T14.91XA Combative behavior R46.89 Agitation R45.1 Alcohol abuse F10.10 Obstructive sleep apnea G47.33 Lacerations of multiple sites without complication T07.XXXA
[2022-05-01] MEDS: dexmedeTOMIDine 0.9 % NaCL 400 MCG/100 ML PREMIX 34.04 MCG IV (14:28)
[2022-05-01] MEDS: enoxaparin 40 mg/0.4 mL Syringe SUBCUT (15:52)
--- NOTE | 2022-05-01 16:09 | PC.NURSE ---
Patient pulled both IVs out by thrashing around in the bed. Called and VM left. Patient refusing nursing staff to place another one.
[2022-05-01] MEDS: ziprasidone 20 mg/mL SDV 10 MG IM (16:19)
[2022-05-01 16:36] LABS: Adenovirus Not Detected (NOT DETECT); Chlamydia Pneumoniae Not Detected (NOT DETECT); Coronavirus 229E,HKU1,NL63,OC4 Not Detected (NOT DETECT); Human Metapneumovirus Not Detected (NOT DETECT); Human Rhinovirus/Enterovirus Not Detected (NOT DETECT); Influenza A Not Detected (NOT DETECT); Influenza A H1 Not Detected (NOT DETECT); Influenza A H1-2009 Not Detected (NOT DETECT); Influenza A H3 Not Detected (NOT DETECT); Influenza B Not Detected (NOT DETECT); Mycoplasma Pneumoniae Not Detected (NOT DETECT); Parainfluenza Virus Type 1 Not Detected (NOT DETECT); Parainfluenza Virus Type 2 Not Detected (NOT DETECT); Parainfluenza Virus Type 3 Not Detected (NOT DETECT); Parainfluenza Virus Type 4 Not Detected (NOT DETECT); Respiratory Syncytial Virus A Not Detected (NOT DETECT); Respiratory Syncytial Virus B Not Detected (NOT DETECT); SARS-COV-2 Not Detected (NOT DETECT)
--- NOTE | 2022-05-01 17:09 | P.NPUHP_ITS ---
Providers/Chief Complaint Admitting Physician: Ivanna Ward MD Primary Care Provider: Nba Rascon MD Chief Complaint: SI HPI NPU History of Present Illness Shree Hickman is a 52 year old male who presented to the emergency department with the following report: Chief Complaint: Overdose Stated Complaint: SI Time Seen by Provider: 04/24/22 13:21 Source: EMS Mode of arrival: EMS History of Present Illness: 52-year-old male presents to the ER via EMS. He is not able to provide any history. Per EMS crew's been on five 6-day baum of heroin and methamphetamine. I did seen this patient in July of this year under similar circumstances. At that time and as well today he received ketamine in the field which caused him to hallucinate but did not really have any significant sedative effect. On arrival here he was [id number] hallucinating and screaming got worse with ketamine. On arrival here would recognize him from his previous history did not give any further ketamine initially seen by midlevel given Ativan however was not very effective he was given a large dose of 4 mg which did effectively sedate him and kept him from further hallucinating or acting out. He was immediately hard restrained as he got here because of his erratic behavior and his hallucinations and screaming out he was at great risk to himself and others. Previously the patient had gone into rhabdomyolysis in July onto the similar conditions. Onset (ago): day(s) Intent: suicide attempt Context: Intentional Overdose: drug/ETOH problems Associated symptoms: hallucinations Treatments Prior to Arrival: other (Ketamine) He was admitted to the ICU for definitive treatment of those issues and was intubated and just recently this morning extubated. He presents quite confused and writhing around the bed, flopping his legs over the arm rests and seeming somewhat delirious. He did eventually remember this telegraphic typewriter repairer and we discussed the plan for him to come down to the interview once he had cleared medically. He endorsed that he understood. We talked about the possibility of adjusting his medications but otherwise he was unclear from a history obtaining standpoint. An excerpt of a past note is included for historical purposes. Per his 07/08/2021 [facility] inpatient psychiatric evaluation: History of Present Illness Shree Hickman is a 51 year old male who presented to the emergency department with the following report: Chief Complaint: ER Hold Stated Complaint: MHE Time Seen by Provider: 07/05/21 13:49 History of Present Illness: 51-year-old male presents to the emergency room in the custody of police. He is extremely agitated physically and verbally aggressive. Took multiple officers to continually redirect him and eventually were able to get into her room. There he began becoming combative agitated making threatening gestures and attempting to tear equipment off of the wall. MD complaint: altered mental status Onset (ago): hour(s) History of same: Yes Relieving factors: none Exacerbating factors: none He received ketamine in the emergency department and then had what was appa rently a paradoxical reaction and ultimately was intubated for safety. He was transferred to the ICU where he was maintained on sedative medications. He was extubated likely disoriented. A psychiatric consult was requested to determine safety to transfer to the NPU. Patient was initially requesting food and being somewhat erratic. He was in four-point restraints and pulling against those. Ultimately calmed down and agreed that he would be cooperative. He is known to this telegraphic typewriter repairer and he apologized and even asked for a hug. He does not recall why he is here but he did report he was not taking his medication that he has occasionally been using drugs and he would be okay with being transferred to the neuropsychiatric unit on a 96-hour hold to explore medications etc. He reports he has not taken his medication for some time and denied any significant drug use. UDS was positive for cannabis. We agreed that once he was maintained out of restraints for a period of time he be transferred down to the neuropsychiatric unit for definitive treatment of his issues. Patient is a fairly poor historian but does report that he lives with family and that he was upset with letter please bring him in the other day. We reviewed his most recent psychiatric evaluation with this telegraphic typewriter repairer which was back in April and he did endorse that it was an accurate representation of his history. An excerpt is included below. Per his 04/16/[address] [facility] inpatient psychiatric evaluation: History of Present Illness Shree Hickman is a 51 year old male who presented to the emergency department with the following report: Chief Complaint: Psychiatric Symptoms Stated Complaint: MHE Time Seen by Provider: 04/15/21 16:41 History of Present Illness: HPI Narrative: 51-year-old male presents to the emergency room with complaint of auditory and visual hallucinations encouraging him to harm others. He denies use of alcohol or drugs. Is a history of diabetes mellitus hypertension he has previously been admitted 10 PM for similar complaints. He denies actually doing anything to harm himself or others at this point. complaint: altered mental status Onset (ago): hour(s) Duration: constant History of same: Yes Relieving factors: medication Exacerbating factors: none Context: not taking psychiatric medications Associated psychiatric symptoms: homicidal ideation, racing thoughts, auditory hallucinations and visual hallucinations Associated symptoms: Deny suicidal ideation Treatments prior to arrival: none. He was admitted to the neuropsychiatric unit for definitive treatment of those issues. Patient presents today for reevaluation and not a great historian due to his endorsed level frustration and feelings of despair. He continued to do it but he is not happy about his life and on multiple occasions reporting a desire to go out and find a place where the most people are to hurt, him and as many people as possible including himself. He reports that he is so tired of people and he does not care who gets her reporting he wants to go to the busiest place, a school a shopping area and to start hurting people because he is tired of palpable I treated him and he does mostly into the soon as possible. He cannot really articulate what is causing him being here. He reports he hasn't been taking his psychiatric medications he hasn't been taking his medical medic ations and insulin. We discussed the risk-benefit alternatives of possibly getting him on Invega or some other medication that has a shot version and he understood and agreed proceed as is documented in his note but in general he just said he did not care fine because he just wants to be if things continue like this. Per his [facility]: History of Present Illness Shree Hickman is a 51 year old male who presented to the emergency department and was admitted to the Medr unit with the following report: Shree Hickman is a 51 year old male who presented to the emergency department I believe with vomiting and diarrhea. Patient currently has received some Ativan and Dilaudid and goes from sleeping to waking with some agitation. He has been pulling at his NG, and IVs. Further history I cannot get from the patient currently. On review of records it is apparent he has had discitis and perhaps a decompression in the past. This occurred at [facility] in [place] after a transfer from our emergency department October 19, and again on November 04. Records will be requested so I can determine the exact hospital course. This is pertinent secondary to L5-S1 discitis seen on CT abdomen and pelvis. From my understanding when patient arrived he really was not complaining of any back pain, paresthesias or other lower extremity symptoms. In his current state, an MRI could not be entertained. The emergency department physician has alerted me that Dr. Ruiz has been notified of the case and will consult. I cannot confirm at this time if he got his blood culture through the emergency department prior to antibiotic administration. Psychiatric consult: Psychiatric consult was requested due to his significant psychiatric comorbidity. Patient presents today reporting that sometime ago he just stopped taking his medication a few months ago due to challenges he had that were fairly vague. He reports that in general he been doing well but he does acknowledge that he does better he is on his medication. He gives no rational reason why he had discontinued the medication and agreed that I could review his records and restart what he was on last as he could not recall himself. We discussed the risk-benefit alternatives of restarting his medication and appropriate dose and he understood agreed proceed as is documented in this note. He has a history of addiction with psychosis likely related to methamphetamine versus organic psychosis which is never been teased out. That he said multiple treatment has been with antidepressants and the only antipsychotic seem to be in proximity to his psychotic presentations suggesting the possibility that this is more related to drug-induced psychosis when the psychosis involved. Per his 07/12/[address] [facility] inpatient psychiatric evaluation: History of Present Illness Shree Hickman is a 50 year old male with past psychiatric history of depressive disorder, multiple past episodes of behavioral disturbances with suicidal ideation and homicidal ideation currently presenting with homicidal ideation toward his nephew who currently lives with him and his dad's house. Patient reports recently leaving shelter 2 weeks ago and states that he has experienced worsening irritability, depression in the context of multiple stressors to include strained relationship with his nephew that lives in the same house. Patient continues to report depressive symptoms, low mood, decreased motivation and interest. He denies any current suicidal ideation. Patient does report stating that he has thoughts about hurting his nephew but does not provide specific details. Patient was placed on a 96-hour hold by police for this complaint of homicidal ideation. Patient does not provide details with regards to history of physical violence towards other individuals and communicates lack of concern about potential consequences of hurting his nephew. Patient does have longstanding history of substance abuse to include methamphetamine abuse but currently has UDS only positive for THC which the patient states he used a couple weeks ago after getting out of shelter. Patient currently denies any perceptual disturbances, denies any hallucinations, denies any delusions. Patient has a past history of schizophrenia although he does not appear to demonstrate any disorganization of his thoughts, speech or behavior. Unclear per chart review with regards to influence of substances or temporal relationship of previous signs or symptoms with substance use. Patient reports occasional anxiety symptoms related ongoing stressors, denies any recent panic attacks. Patient is noncompliant not only with psychiatric medication but also with medication for his diabetes with past reported blood sugar in the 400s. Patient states that he has taken diabetes medication since his last hospitalization but is not specific with regards to his compliance and ongoing monitoring in the outpatient setting. Per above, patient also noncompliant with psychiatric medication as well as psychiatric follow-up. Patient reports last being hospitalized for psychiatric reasons at this facility in December 2019 at which time Abilify was started but patient states he did not take this medication after discharge. Patient reports living with his father and states that his nephew and nephew's also live in the same house causing significant strained relationship. Meds NPU Home Medications Medication Instructions Recorded Confirmed Last Taken Type Unable to Assess 04/25/22 04/25/22 Unknown History Allergies Allergy/AdvReac Type Severity Reaction Status Date / Time ketamine Allergy Severe ADR-Agitate Verified 12/08/21 20:23 d Penicillins Allergy Severe Unknown Verified 12/08/21 20:23 PFS NPU PFSH: Medical History (Updated 04/30/22 @ 20:10 by Radha Byrne MD) Anxiety and depression Bowel obstruction CAD (coronary artery disease) Cellulitis and abscess of left leg Diabetes mellitus, with long-term current use of insulin Essential hypertension GERD (gastroesophageal reflux disease) Hepatitis C History of bacterial endocarditis Homicidal ideation Psychiatric care Psychosis Respiratory failure Septic arthritis due to Streptococcus species Suicidal ideation Surgical History History of aortic valve replacement with bioprosthetic valve History of heart valve replacement History of mitral valve replacement with bioprosthetic valve Family History Other Diabetes No significant family history Social History Smoking and tobacco status: unknown if ever smoked Alcohol intake: current Alcohol intake frequency: holidays/special occasions only Housing: Other Details: Homeless Current occupational status: unemployed Mental Status Exam MSE Comments: This is an obese white male in hospital gown with limited grooming and eye contact with poor dentition.? No abnormal movements except for psychomotor agitation.? Significant tattooing over his exposed skin including his stomach with some statement 100% [place].? Mostly cooperative with exam in extreme distress.? Speech was dysarthric and increased rate and volume.? Mood not described, affect flustered.? Thought process disorganized.? Thought content: Patient was limited in his ability to communicate and make sense and did not answer questions about suicidal and homicidal ideation, there were no delusions reported or noted, he did not report auditory or visual hallucinations.? Attention and concentration are impaired memory appears mostly unreliable but none were formally tested.? He is alert and oriented x3.? Insight and judgment are impaired, impulse control appears impaired. Vitals/I&O/Wt Last Vital Signs Temp 98.8 F 05/01/22 13:00 Pulse 113 H 05/01/22 16:30 Resp 25 H 05/01/22 16:30 BP 183/101 05/01/22 16:30 Pulse Ox 93 05/01/22 16:30 O2 Del Method O2 Flow Rate FiO2 35 05/01/22 11:00 Weight last 48 hrs Weight 109.497 kg Weight 112.945 kg Physical Exam Urinary Catheter Management: Rowe: Cath Placed During This Visit: yes Reason for Continuing Indwelling Catheter: Accurate Measurement of Urinary Output in Critically Ill Patients Urinary Catheter Date of Insertion: 04/24/22 Urinary Catheter Time of Insertion: 20:30 Data NPU 05/01/22 02:48 05/01/22 06:55 Micro: Microbiology 04/30/22 08:18 Blood Culture - Preliminary Blood NEGATIVE TO DATE 04/30/22 08:14 Blood Culture - Preliminary Blood NEGATIVE TO DATE Microbiology 04/30/22 08:18 Blood Blood Culture - Preliminary NEGATIVE TO DATE 04/30/22 08:14 Blood Blood Culture - Preliminary NEGATIVE TO DATE A&P Assessment and plan (1) Psychosis: (2) Agitated depression: (3) Rhabdomyolysis: (4) URI with cough and congestion: (5) Decreased calculated GFR: (6) Diabetes mellitus, with long-term current use of insulin: (7) GERD (gastroesophageal reflux disease): (8) Essential hypertension: (9) Methamphetamine abuse: (10) Schizophrenia: (11) Substance abuse: (12) History of bacterial endocarditis: (13) Lacerations of multiple sites without complication: (14) Combative behavior: (15) Suicide attempt: (16) Obstructive sleep apnea: Plan This is a 52-year-old white male with a long history of depression,psychosis and addiction particularly methamphetamine which is often led to psychosis and agitation who presented to the emergency department having received reportedly had a suicide attempt and subsequently receiving ketamine which he has had a history of adverse response to which again led to him being intubated and placed on a 96-hour hold. He was extubated and finds himself with psychomotor agitation during the consult. 1.? Continue current medication.? Restart an antipsychotic medication that can be given as a long-acting injection 2.? Give Geodon 20 mg p.o. or IM twice daily as needed for agitation. 5. Transfer to neuropsychiatric unit when stable medically. Involuntary Hold Information 96 Hour Hold: 96 Hour Involuntary Admission: No Attestations NPU Medical Necessity Statement*: N/A. Please see primary team note for medical necessity. However patient in need of inpatient psychiatric treatment when medically stable. Coding Level of Care Code Acute Die Cleaner for [facility] Fwd Diagnoses Psychosis F29 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
--- NOTE | 2022-05-01 19:18 | ECG_ITS ---
[facility] Test Date: 2022-05-01 Pat Name: Shree Hickman Department: Room: [facility]09 Gender: Male Identity Access Management Architect: : 1970 Requested By: Kelly Szymanski Order Number: [id number] Charlie MD: Radha Byrne M.D. Measurements Intervals [place] Rate: 117 P: 44 CO: 116 QRS: 42 QRSD: 93 T: 2 QT: 321 QTc: 449 Interpretive Statements SINUS TACHYCARDIA WITH SHORT CO INTERVAL POSSIBLE LEFT ATRIAL ENLARGEMENT [-0.1mV P-WAVE IN V1/V2] NONSPECIFIC ST & T-WAVE ABNORMALITY Compared to ECG 04/24/2022 17:11:40 Short CO interval now present T-wave abnormality now present Sinus rhythm no longer present Myocardial infarct finding no longer present Electronically Signed On 05-03-2022 7:53:31 CLINICAL ALLERGIST by Radha Byrne M.D. [id number] f
[2022-05-01 19:44] LABS: Glucose Point of Care 285 mg/dL (70-110)
--- NOTE | 2022-05-01 20:00 | PC.NURSE ---
Chest Pain Since beginning of shift, patient had been restless/agitated, speaking with inappropriate language yet able to be redirected. Upon assessment of patient at 1940, patient stated he had chest pain. When asked to describe the pain, patient did not respond but did state he felt nauseous. Physically, patient was diaphoretic, pale, and exhibited labored breathing. No IV access at this time despite insertion attempts. Dr. Szymanski contacted; order received for troponin/ekg series, medium insulin lispro sliding scale with meals and at bedtime, and one time dose of 120 mg IM phenobarbitol if needed. See MAR for details.
--- NOTE | 2022-05-01 20:03 | XRR_ITS ---
PROCEDURE INFORMATION: Exam: XR Abdomen Exam date and time: 05/01/2022 8:17 PM Age: 52 years old Clinical indication: Vomiting; Additional info: Vomit TECHNIQUE: Imaging protocol: Radiologic exam of the abdomen. Views: Frontal supine view of the abdomen. 1 View. COMPARISON: CR XR abdomen 1V* [id number] 04/30/2022 9:43 AM FINDINGS: Gastrointestinal tract: Normal. No bowel dilation. Bones/joints: Unremarkable. XR/XR KUB portable [id number] IMPRESSION: No acute findings.
[2022-05-01] MEDS: promethazine 25 mg/mL SDV 1 mL IM (20:06)
--- NOTE | 2022-05-01 20:10 | PC.NURSE ---
Emesis Patient had multiple episodes of profuse vomiting, oxygen saturation declining. Patient head of bed elevated, oxymask placed on patient. Still no IV access. Dr. Szymanski notified; orders to be placed by physician. Phenergan IM administered, see MAR for details.
--- NOTE | 2022-05-01 20:18 | PC.NURSE ---
Patient profusely vomiting. No IV access and patient refuses nursing staff to insert new IV. Physician notified. Orders were placed by physician for IM Phenergan and x-ray. Patient refused lab draw for troponin level. Patient educated on importance of IV access and lab work. Will notify physician of refusal for labs.
[2022-05-01] MEDS: haloperidol inj 5 mg/mL INJ 1 mL 2 MG IM (21:14)
[2022-05-01] MEDS: nitroglycerin 1 gm/inch oint Pkt 0.5 INCH TOPICAL (21:15)
--- NOTE | 2022-05-01 21:20 | PC.NURSE ---
Blood Pressure Patient's blood pressure remaining elevated systolic ranging from 147-192 systolic and patient still agitated/restless, moving arms and legs in bed while using inappropriate language. Still no IV access available. Additionally, patient still refusing lab stick for troponin series. Dr. Szymanski contacted and order placed for one time dose of 0.5 inch topical nitro-bid as well as one time dose for Haldol. See MAR for application.
--- NOTE | 2022-05-01 21:23 | ECG_ITS ---
[facility] Test Date: 2022-05-01 Pat Name: Shree Hickman Department: Room: [facility]09 Gender: Male Historic Preservationist: : 1970 Requested By: Kelly Szymanski Order Number: [id number] Charlie MD: Radha Byrne M.D. Measurements Intervals [place] Rate: 112 P: 52 MO: 158 QRS: 49 QRSD: 90 T: 70 QT: 321 QTc: 438 Interpretive Statements SINUS TACHYCARDIA NONSPECIFIC T-WAVE ABNORMALITY Compared to ECG 05/01/2022 19:18:58 Short MO interval no longer present T-wave abnormality still present Electronically Signed On 05-03-2022 7:57:28 TIRE FABRIC INSPECTOR by Radha Byrne M.D. [email or web address] Communicationsfairfield medical center.[employer]/store/OM/[id number]/[id number]
[2022-05-01] MEDS: insulin lispro 100 unit/1 mL SUBCUT (22:13)
[2022-05-01 22:21] LABS: Glucose Point of Care 275 mg/dL (70-110)
--- NOTE | 2022-05-01 22:30 | PC.NURSE ---
Addendum entered by Ida Benton RN 05/02/22 03:46: Witnessed Ativan waste. Original Note: Ativan Waste PRN ativan dose accidentally wasted from syringe prior to administration; second vial pulled from pyxis and single dose administered per JUL.
[2022-05-01] MEDS: ondansetron 2 mg/ML SDV 2 mL 4 MG IVP (22:34)
[2022-05-02] VITALS (59 sets, daily range): BP systolic 118–191; BP diastolic 72–134; PULSE 71–120; RESP 18–35; TEMP 36.8–37.4; O2SAT 89–100; BMI 36.7
[2022-05-02] MEDS: vancomycin 1,250 MG/250 ML PIGGYBACK 250 MG IV ×3 (00:59→16:46)
--- NOTE | 2022-05-02 01:39 | ECG_ITS ---
[facility] Test Date: 2022-05-02 Pat Name: Shree Hickman Department: Room: [facility]09 Gender: Male Communications Analyst: : 1970 Requested By: Kelly Szymanski Order Number: [id number] Charlie MD: Deny Denny M.D. Measurements Intervals [place] Rate: 106 P: 54 OR: 141 QRS: 32 QRSD: 93 T: 72 QT: 331 QTc: 441 Interpretive Statements SINUS TACHYCARDIA NONSPECIFIC T-WAVE ABNORMALITY Compared to ECG 05/01/2022 21:23:00 No significant changes Electronically Signed On 05-04-2022 19:59:45 PRIMING MACHINE OPERATOR by Deny Denny M.D. [email or web address] regional medical centerClean Power Financethe metrohealth systemCompany/store/OM/[id number]
[2022-05-02] MEDS: metoclopramide 5 mg/mL SDV 2 mL 10 MG IVP (03:13)
--- NOTE | 2022-05-02 03:25 | PC.NURSE ---
Morphine Patient complaining of severe left shoulder pain, rated 10 on a 1-10 numerical pain scale. Patient remains agitated as he has been throughout the night. No pain medication ordered. Dr. Szymanski called, order received for 2 mg morphine IVP once now for pain and to try once again for a troponin level with morning labs. Medication administered per JUL.
[2022-05-02] MEDS: morphine 4 mg/mL SDV 1 mL 2 MG IVP (03:29)
[2022-05-02] MEDS: LORazepam 2 mg/mL INJ 1 mL IVP ×3 (04:02→09:16)
[2022-05-02 05:38] LABS: D Dimer 5.28 ug/mIFEU (0-0.59)
[2022-05-02 06:17] LABS: Glucose Point of Care 216 mg/dL (70-110)
[2022-05-02 06:30] LABS: Troponin 5 2HR 13.81 ng/L (0-15)
[2022-05-02 06:48] LABS: Troponin(5th) Baseline 14 ng/L (0-15)
[2022-05-02 06:48] LABS: Troponin 5 2HR Delta -0.19 ABS# (0-10)
[2022-05-02 07:50] LABS: Glucose Point of Care 233 mg/dL (70-110)
[2022-05-02] MEDS: OLANZapine 10 mg TABLET OG-TUBE ×2 (08:16→16:52)
[2022-05-02] MEDS: insulin lispro 100 unit/1 mL SUBCUT ×4 (08:16→22:00)
[2022-05-02] MEDS: BuSPIRONE 10 mg Tablet PO ×3 (08:16→22:00)
[2022-05-02] MEDS: meropenem 1,000 MG in sodium chloride 0.9% (plus) 50 ML 100 MG IV ×3 (08:16→23:58)
[2022-05-02] MEDS: ARIPiprazole 10 mg Tablet PO (08:16)
[2022-05-02] MEDS: pantoprazole 40 mg SDV IVP (08:17)
[2022-05-02] MEDS: dexmedeTOMIDine 0.9 % NaCL 400 MCG/100 ML PREMIX IV ×2 (09:16→12:20)
[2022-05-02 10:52] LABS: Troponin 5 6HR 12.44 ng/L (0-15)
[2022-05-02 11:05] LABS: Troponin 5 6HR Delta -1.56 ng/L (0-12)
[2022-05-02 11:40] LABS: Glucose Point of Care 203 mg/dL (70-110)
--- NOTE | 2022-05-02 13:55 | PC.NURSE ---
0945 Dr. Johnson at bedside. Patient agitated, aggressive, and unable to follow safety instructions. Orders to increase Precedex drip to 1 mcg/kg/hr. Medication adjusted per order.
[2022-05-02] MEDS: enoxaparin 40 mg/0.4 mL Syringe SUBCUT (15:42)
[2022-05-02 17:18] LABS: Glucose Point of Care 237 mg/dL (70-110)
--- NOTE | 2022-05-02 19:45 | P.PN_ITS ---
Subjective Subjective: Afebrile over last 24 hours. Overnight pulled out his IV line due to agitation. Needed to be given Phenergan after 1 episode of vomiting and also received phenobarbital 120 mg IM. This morning IV access was able to be established and patient is on Precedex following which she has essentially been sleeping all day. Currently on an oxygen mask at 10 L/min saturating 94 to 98%. Medications: Reviewed: Yes Vitals/I&O/Wt Last Vital Signs Temp 98.9 F 05/02/22 04:00 Pulse 72 05/02/22 18:00 Resp 24 H 05/02/22 18:00 BP 129/92 05/02/22 18:00 Pulse Ox 98 05/02/22 18:00 O2 Del Method 05/02/22 08:31 O2 Flow Rate 10 05/02/22 08:31 FiO2 35 05/01/22 11:00 05/02/22 05/02/22 05/02/22 06:59 14:59 22:59 Intake Total 300 / 1554.282 585.082 / 585.082 600 / 1185.082 Output Total 1225 / 2775 1925 / 1925 1000 / 2925 Balance -925 / -1220.718 -1339.918 / -1339.918 -400 / -1739.918 Weight last 48 hrs Weight 109.497 kg Weight 112.945 kg Physical Exam Narrative: General: No acute distress, AO x1, asleep HEENT: PERRLA, pupils bilaterally equal and reactive, pallors not present Chest: Normal vesicular breath sounds, no added sounds, equal good air entry bilaterally CVS: S1-S2 regular, no murmurs, no tachycardia, no gallops, no rubs Abdomen: Soft, nontender, no organomegaly, bowel sounds present Neuro: No focal deficits, no facial deformity, AO x1 power 5/5 in all limbs Urinary Catheter Management: Rowe: Cath Placed During This Visit: yes Reason for Continuing Indwelling Catheter: Accurate Measurement of Urinary Output in Critically Ill Patients Urinary Catheter Date of Insertion: 04/24/22 Urinary Catheter Time of Insertion: 20:30 Data 05/01/22 02:48 05/01/22 06:55 A&P Assessment and plan (1) Substance abuse: (2) Essential hypertension: (3) Psychiatric care: (4) Rhabdomyolysis: (5) CAD (coronary artery disease): (6) Anxiety and depression: (7) Diabetes mellitus, with long-term current use of insulin: (8) GERD (gastroesophageal reflux disease): (9) Schizophrenia: (10) H/O heart valve replacement with bioprosthetic valve: (11) Ventilator dependent: (12) Drug overdose: (13) Suicide attempt: (14) Combative behavior: (15) Agitation: (16) Alcohol abuse: (17) Obstructive sleep apnea: (18) Lacerations of multiple sites without complication: Plan #Polysubstance abuse Currently admitted since April 24 after presenting to the emergency room with acute overdose with reportedly heroin and methamphetamine and possibly gasoline. Urine tox screen is positive for amphetamines, benzos, marijuana, alcohol. Negative for salicylates. - Poison control contacted by ER. - Extubated on 04/30, prolonged intubation due to withdrawal. Resumed aripiprazole 10 mg daily, , olanzapine 10 mg twice daily. Trazodone 50 at bedtime and buspirone which are his reported home medications. Psychiatry has been consulted to further optimize medications continues on precedex infusion at max doses # Fever , possible sepsis Fever now resolved May be 2/2 resolving sepsis and taking off propofol Diagnosed with aspiration pnuemonia upon admission treated with Zosyn/Vancomycin ---> changed to meropenem and vancomycin on 04/29 with no fever. Plan for 7 day course. CXR showing improving infiltrates, doubt that untreated pneumonia is the cause of his current symptoms. Sputum cx with coag neg staph, h/o MRSA, currenlty both appropriately covered blood cx taken , currently negative to date no indwelling iv lines echo taken, ARSEN additionally performed due to history of bioprosthetic heart valve mitral and aortic and high concern for endocarditis and an IV drug user. No vegetations noted. His aortic root did look dilated will need CTA cardiac as outpatient. Influenza and covis negative. Alternatively propofol may have been a cause of ongoing fever. now resolved #Bilateral pneumonia -CT chest with evidence of bilateral lower lobe consolidation. CXR shows serial improvement Continue meropenem and vancomycin #Metabolic acidosis most likely secondary to drug intoxication #Mild rhabdomyolysis Now resolved #Obstructive sleep apnea -Sleep study as outpatient #Type 2 diabetes mellitus, insulin-dependent -Continue on low-dose intensity sliding scale every 6 hours. Resume diet today now that extubated. #History of coronary artery disease #History of aortic valve replacement #Hypertension ? Patient on lisinopril 20 mg daily at home. Holding antihypertensives for now. Currently MAp ranging between 60-65. DVT prophylaxis: lovenox 40 s/c Diet: NGT in place, starting tube feeds 04/29 PUD ppx: protonix 40mg Full code Attestations Medical Necessity Statement*: ongoing ICU care for above defined car e Critical Care Time: The high probability of a clinically significant, sudden or life threatening deterioration of the patient's [respiratory, cardiac] system(s) required my full and direct attention, intervention and personal management. The critical care time is as shown. This time is in addition to time spent performing any reported procedures but includes the following: [x] Data and vital sign review and interpretation [x] Patient assessment, examination and intervention [x] Documentation [x] Medication orders and management Coding Level of Care Code Acute Oil Well Service Operator for [facility] Fwd Diagnoses Substance abuse F19.10 Essential hypertension I10 Psychiatric care Rhabdomyolysis M62.82 CAD (coronary artery disease) I25.10 Anxiety and depression F41.9; F32.A Diabetes mellitus, with long-term current use of insulin E11.9; Z79.4 GERD (gastroesophageal reflux disease) K21.9 Schizophrenia F20.9 H/O heart valve replacement with bioprosthetic valve Z95.3 Ventilator dependent Z99.11 Drug overdose T50.901A Suicide attempt T14.91XA Combative behavior R46.89 Agitation R45.1 Alcohol abuse F10.10 Obstructive sleep apnea G47.33 Lacerations of multiple sites without complication T07.XXXA
[2022-05-02 21:41] LABS: Glucose Point of Care 235 mg/dL (70-110)
[2022-05-02] MEDS: trazodone 50 mg Tablet OG-TUBE (22:00)
[2022-05-03] VITALS (43 sets, daily range): BP systolic 132–177; BP diastolic 76–111; PULSE 68–102; RESP 19–41; TEMP 36.6–37.2; O2SAT 85–100
[2022-05-03] MEDS: vancomycin 1,250 MG/250 ML PIGGYBACK 250 MG IV (00:47)
[2022-05-03 05:11] LABS: Basophils % 0.3 %; Eosinophils # 0.1 10^3/uL (0.0-0.8); Eosinophils % 1.5 %; Hematocrit 33.8 % (42.0-52.0); Hemoglobin 10.7 g/dL (11.7-16.6); Lymphocytes # 1.2 10^3/uL (0.8-4.8); Lymphocytes % 16.7 %; Mean Corpuscular HGB Conc 31.7 g/dL (30.0-36.0); Mean Corpuscular Hemoglobin 29.6 pg (28.0-34.0); Mean Corpuscular Volume 93.6 fl (80-94); Mean Platelet Volume 10.7 fL (7.4-10.4); Monocytes # 0.5 10^3/uL (0.2-0.9); Neutrophils # 5.06 10^3/uL (1.8-7.7); Neutrophils % 73.5 %; Nucleated Red Blood Cells % 0 %; Platelet Count 169 10^3/cmm (130-400); Red Blood Count 3.61 10^6/uL (4.1-5.3); Red Cell Distribution Width 12.5 % (12.1-15.1); White Blood Count 6.9 10^3/uL (4.0-10.0)
[2022-05-03 05:26] LABS: Alanine Aminotransferase 14 U/L (0-41); Albumin Level 2.9 g/dL (3.5-5.2); Alkaline Phosphatase 70 U/L (40-130); Aspartate Amino Transferase 13 U/L (0-40); Blood Urea Nitrogen 11 mg/dL (6-20); Calcium 8.8 mg/dL (8.5-10.5); Carbon Dioxide 24 mmol/L (22-29); Chloride 101 mmol/L (98-107); Globulin 3.5 g/dL (1.3-4.6); Glucose 214 mg/dL (65-115); Osmolality Calculated 286 mOsm/kg (285-295); Sodium 135 mmol/L (136-145); Total Bilirubin 0.4 mg/dL (0.15-1.2); Total Protein 6.4 g/dL (6.6-8.7)
[2022-05-03 05:35] LABS: Anion Gap 13.5 (5-19); Potassium 3.5 mmol/L (3.5-5.1)
[2022-05-03] MEDS: LORazepam 2 mg/mL INJ 1 mL IVP ×2 (06:27→23:55)
--- NOTE | 2022-05-03 06:27 | PC.NURSE ---
Patient yelling that he is seeing bugs. Increased anxiety and agitation. Ativan given per order in jul.
[2022-05-03 08:05] LABS: Glucose Point of Care 256 mg/dL (70-110)
[2022-05-03] MEDS: insulin lispro 100 unit/1 mL SUBCUT ×4 (08:08→20:34)
[2022-05-03] MEDS: meropenem 1,000 MG in sodium chloride 0.9% (plus) 50 ML 100 MG IV (08:08)
[2022-05-03 08:43] LABS: Vancomycin Trough 9.1 ug/mL (10-15)
[2022-05-03] MEDS: BuSPIRONE 10 mg Tablet PO ×3 (08:48→20:34)
[2022-05-03] MEDS: OLANZapine 10 mg TABLET OG-TUBE ×2 (08:48→17:15)
[2022-05-03] MEDS: potassium chloride ER 20 mEq Tablet 40 MEQ PO (08:48)
[2022-05-03] MEDS: ARIPiprazole 10 mg Tablet PO (08:48)
[2022-05-03] MEDS: FUROsemide 10 mg/mL SDV 10mL 60 MG IVP (08:49)
[2022-05-03] MEDS: pantoprazole 40 mg SDV IVP (08:49)
[2022-05-03] MEDS: vancomycin 1,250 MG/250 ML PIGGYBACK 200 MG IV (08:50)
--- NOTE | 2022-05-03 09:22 | PC.NURSE ---
remains confused and restless weaned precedex to awaken and given small amts of liquids and meds with po applesauce at this time .Lasix given at this time and kcl
--- NOTE | 2022-05-03 10:27 | PC.OT ---
Spoke with nursing. Will hold OT eval at this time due to patient agitation and confusion. Will attempt at a later date.
[2022-05-03 12:06] LABS: Glucose Point of Care 283 mg/dL (70-110)
--- NOTE | 2022-05-03 12:18 | W.PM.NPUPNS ---
Subjective NPU Subjective: Patient presented today more alert so able to interview today. He was reporting having bugs crawling on him. We discussed how having some delirium and that he is working with the ICU team to get medically stable. He did discuss wanting to get treatment in [place] but we discussed the fact that that could not happen inpatient because he is already here. We discussed that after he was given medical clearance that it is our recommendation that he come down to the neuropsychiatric unit for continued psychiatric stabilization prior to discharge. He reported having concerns that supposedly could not leave the area or the state but we discussed not having any clear information on that issue. Mental Status Exam MSE Comments: This is an obese white male in hospital gown with limited grooming and eye contact with poor dentition.? No abnormal movements except for psychomotor retardation.? Significant tattooing over his exposed skin including his stomach with statement 100% [place] tattoo on.? Mostly cooperative with exam in mild to moderate distress.? Speech was dysarthric and increased rate and volume.? Mood not described, affect flustered.? Thought process more organized.? Thought content: Patient was limited in his ability to communicate and make sense and did not answer questions about suicidal and homicidal ideation, there were no delusions reported or noted, he did not report auditory or visual hallucinations.? Attention and concentration are still impaired and memory appears mostly unreliable, but improving but none were formally tested.? He is alert and oriented x3.? Insight and judgment are impaired, impulse control appears impaired. Vitals/I&O/Wt Last Vital Signs Temp 99.0 F 05/03/22 08:00 Pulse 71 05/03/22 10:30 Resp 33 H 05/03/22 10:30 BP 132/82 05/03/22 10:30 Pulse Ox 85 L 05/03/22 10:30 O2 Del Method 05/03/22 09:09 O2 Flow Rate 3 05/03/22 09:09 FiO2 35 05/01/22 11:00 05/02/22 05/03/22 05/03/22 22:59 06:59 14:59 Intake Total 1440 / 2025.082 1420 / 3445.082 193.472 / 193.472 Output Total 1000 / 2925 650 / 3575 2800 / 2800 Balance 440 / -899.918 770 / -129.918 -2606.528 / -2606.528 Weight last 48 hrs Weight 109.911 kg Weight 109.497 kg Physical Exam Urinary Catheter Management: Rowe: Cath Placed During This Visit: yes Reason for Continuing Indwelling Catheter: Other Urinary Catheter Date of Insertion: 04/24/22 Urinary Catheter Time of Insertion: 20:30 Data NPU 05/03/22 04:22 05/03/22 04:22 A&P Assessment and plan (1) Psychosis: (2) Agitated depression: (3) Rhabdomyolysis: (4) URI with cough and congestion: (5) Decreased calculated GFR: (6) Diabetes mellitus, with long-term current use of insulin: (7) GERD (gastroesophageal reflux disease): (8) Essential hypertension: (9) Methamphetamine abuse: (10) Schizophrenia: (11) Substance abuse: (12) History of bacterial endocarditis: (13) Lacerations of multiple sites without complication: (14) Combative behavior: (15) Suicide attempt: (16) Obstructive sleep apnea: Plan This is a 52-year-old white male with a long history of depression,psychosis and addiction particularly methamphetamine which is often led to psychosis and agitation who presented to the emergency department having received reportedly had a suicide attempt and subsequently receiving ketamine which he has had a history of adverse response to which again led to him being intubated and placed on a 96-hour hold. He was extubated and finds himself with psychomotor agitation during the consult. 1.? Continue current medication.? Restart his antipsychotic medication and work towards giving as a long-acting injection 2.? Give Geodon 20 mg p.o. or IM twice daily as needed for agitation. 5. Transfer to neuropsychiatric unit when stable medically. Involuntary Hold Information 96 Hour Hold: 96 Hour Involuntary Admission: No Attestations NPU Medical Necessity Statement*: N/A. Please see primary team note for medical necessity. However patient in need of inpatient psychiatric treatment when medically stable. Coding Level of Care Code Acute Statement Distribution Clerk for [facility] Fwd Diagnoses Psychosis F29 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
--- NOTE | 2022-05-03 13:53 | PM.PN ---
Subjective Subjective: Patient was seen this morning, overnight he had episodes of agitation, requiring Precedex, and episodes of agitation this morning received Ativan, he does arouse, but falls back asleep, he is on 3 L, afebrile overnight, Vitals/I&O/Wt Last Vital Signs Temp 99.0 F 05/03/22 08:00 Pulse 73 05/03/22 13:00 Resp 41 H 05/03/22 12:30 BP 143/94 05/03/22 13:00 Pulse Ox 91 05/03/22 12:30 O2 Del Method 05/03/22 09:09 O2 Flow Rate 3 05/03/22 09:09 FiO2 35 05/01/22 11:00 05/02/22 05/03/22 05/03/22 22:59 06:59 14:59 Intake Total 1440 / 2025.082 1420 / 3445.082 1268.472 / 1268.472 Output Total 1000 / 2925 650 / 3575 6250 / 6250 Balance 440 / -899.918 770 / -129.918 -4981.528 / -4981.528 Weight last 48 hrs Weight 109.911 kg Weight 109.497 kg Physical Exam Const: COMMON NORMALS: no acute distress ORIENTATION/CONSCIOUSNESS: Yes awake and Yes oriented to person Resp: COMMON NORMALS: normal respiratory effort, No retractions and No use of accessory muscles Cardio: COMMON NORMALS: regular rate, regular rhythm, S1 normal heart sound present and S2 normal heart sound present RATE: regular rate RHYTHM: regular rhythm HEART SOUNDS: S1 normal heart sound present and S2 normal heart sound present GI: COMMON NORMALS: Normal to inspection, nondistended, normoactive bowel sounds present and non-tender Extremity: COMMON NORMALS: no pedal edema Neuro: SENSORIUM/ORIENTATION: Yes oriented to person Urinary Catheter Management: Rowe: Cath Placed During This Visit: yes Reason for Continuing Indwelling Catheter: Other Urinary Catheter Date of Insertion: 04/24/22 Urinary Catheter Time of Insertion: 20:30 Data 05/03/22 04:22 05/03/22 04:22 A&P Assessment and plan (1) Substance abuse: (2) Essential hypertension: (3) Psychiatric care: (4) Rhabdomyolysis: (5) CAD (coronary artery disease): (6) Anxiety and depression: (7) Diabetes mellitus, with long-term current use of insulin: (8) GERD (gastroesophageal reflux disease): (9) Schizophrenia: (10) H/O heart valve replacement with bioprosthetic valve: (11) Ventilator dependent: (12) Drug overdose: (13) Suicide attempt: (14) Combative behavior: (15) Agitation: (16) Alcohol abuse: (17) Obstructive sleep apnea: (18) Lacerations of multiple sites without complication: Plan #Acute encephalopathy -Initially secondary to substance abuse, pneumonia -Persistent encephalopathy, likely secondary to withdrawal from psychotropic medications -Resume psychotropic medications #Polysubstance abuse Currently admitted since April 24 after presenting to the emergency room with acute overdose with reportedly heroin and methamphetamine and possibly gasoline. Urine tox screen is positive for amphetamines, benzos, marijuana, alcohol. Negative for salicylates. - Poison control contacted by ER. - Extubated on 04/30, prolonged intubation due to withdrawal. Resumed aripiprazole 10 mg daily, , olanzapine 10 mg twice daily. Trazodone 50 at bedtime and buspirone which are his reported home medications. Psychiatry has been consulted to further optimize medications continues on precedex infusion at max doses # Fever , possible sepsis Fever now resolved May be 2/2 resolving sepsis and taking off propofol Diagnosed with aspiration pnuemonia upon admission treated with Zosyn/Vancomycin ---> changed to meropenem and vancomycin on 04/29 with no fever. De-escalate antibiotics to doxycycline sputum cultures showing Staphylococcus species CXR showing improving infiltrates, doubt that untreated pneumonia is the cause of his current symptoms. Sputum cx with coag neg staph, h/o MRSA, currenlty both appropriately covered blood cx taken , currently negative to date no indwelling iv lines echo taken, ARSEN additionally performed due to history of bioprosthetic heart valve mitral and aortic and high concern for endocarditis and an IV drug user. No vegetations noted. His aortic root did look dilated will need CTA cardiac as outpatient. Influenza and covis negative. Alternatively propofol may have been a cause of ongoing fever. now resolved #Bilateral pneumonia -CT chest with evidence of bilateral lower lobe consolidation. CXR shows serial improvement On meropenem and vancomycin, de-escalated to doxycycline #Metabolic acidosis most likely secondary to drug intoxication #Mild rhabdomyolysis Now resolved #Obstructive sleep apnea -Sleep study as outpatient #Type 2 diabetes mellitus, insulin-dependent -Continue on low-dose intensity sliding scale every 6 hours. Resume diet today now that extubated. #History of coronary artery disease #History of aortic valve replacement #Hypertension ? Patient on lisinopril 20 mg daily at home. Holding antihypertensives for now. Currently MAp ranging between 60-65. #Requiring 3 L, hypoxia -Likely secondary pneumonia -Some component of fluid overload 1 dose of Lasix today monitor urine output monitor creatinine DVT prophylaxis: lovenox 40 s/c Diet: Speech therapy eval, advance diet as tolerated PUD ppx: protonix 40mg Full code Attestations Medical Necessity Statement*: Patient requires hospitalization for acute encephalopathy,, hypoxia Coding Level of Care Code Acute Business Systems Architect for [facility] Fwd Diagnoses Substance abuse F19.10 Essential hypertension I10 Psychiatric care Rhabdomyolysis M62.82 CAD (coronary artery disease) I25.10 Anxiety and depression F41.9; F32.A Diabetes mellitus, with long-term current use of insulin E11.9; Z79.4 GERD (gastroesophageal reflux disease) K21.9 Schizophrenia F20.9 H/O heart valve replacement with bioprosthetic valve Z95.3 Ventilator dependent Z99.11 Drug overdose T50.901A Suicide attempt T14.91XA Combative behavior R46.89 Agitation R45.1 Alcohol abuse F10.10 Obstructive sleep apnea G47.33 Lacerations of multiple sites without complication T07.XXXA
[2022-05-03] MEDS: enoxaparin 40 mg/0.4 mL Syringe SUBCUT (15:14)
--- NOTE | 2022-05-03 16:19 | PC.NURSE ---
more oriented and cooperative this afternoon had large bm liquid .. lakisha care done and bed changed
[2022-05-03] MEDS: doxycycline 100 mg Tablet PO (17:15)
[2022-05-03 17:21] LABS: Glucose Point of Care 240 mg/dL (70-110)
[2022-05-03 20:31] LABS: Glucose Point of Care 198 mg/dL (70-110)
[2022-05-03] MEDS: trazodone 50 mg Tablet OG-TUBE (20:34)
--- NOTE | 2022-05-03 22:35 | PC.NURSE ---
Patient sat on side of the bed for tub bath. Patient was able to give some assistance in bathing and cleaning. Rowe catheter removed based on nurse driven protocol. Oral care performed. Patient assisted by two nurses to transfer to chair. Patient had difficulty standing and taking steps. Patient unaware of his strength and coordination in ADL's. Precedex has been titrated down prior to bath. Patient was calm and cooperative but needed reoriented in ability to sit up on side of the bed and standing on his own.
--- NOTE | 2022-05-03 23:58 | PC.NURSE ---
Patient getting anxious and agitated. States that he is mad because he can't hold on to his cup or anything drops it. Patient states that he can't breathe and is short of breath. Oxygen sats 95%, Patient educated deep breathing and relaxing techniques. Ativan given per order in jul. Precedex restarted at 0.1 mg/kg/hr.
[2022-05-04] VITALS (17 sets, daily range): BP systolic 131–185; BP diastolic 77–125; PULSE 86–122; RESP 16–32; TEMP 36.4–37.6; O2SAT 85–95
[2022-05-04] MEDS: ondansetron 2 mg/ML SDV 2 mL 4 MG IVP (03:01)
[2022-05-04] MEDS: acetaminophen 325 mg Tablet 650 MG PO ×3 (04:30→20:42)
[2022-05-04 04:56] LABS: Basophils % 0.6 %; Eosinophils # 0.1 10^3/uL (0.0-0.8); Eosinophils % 1.1 %; Hematocrit 34.1 % (42.0-52.0); Hemoglobin 11.5 g/dL (11.7-16.6); Lymphocytes # 1.2 10^3/uL (0.8-4.8); Lymphocytes % 19.2 %; Mean Corpuscular HGB Conc 33.7 g/dL (30.0-36.0); Mean Corpuscular Hemoglobin 30.3 pg (28.0-34.0); Mean Corpuscular Volume 89.7 fl (80-94); Monocytes # 0.4 10^3/uL (0.2-0.9); Monocytes % 6.5 %; Neutrophils # 4.62 10^3/uL (1.8-7.7); Neutrophils % 71.4 %; Nucleated Red Blood Cells % 0 %; Platelet Count 184 10^3/cmm (130-400); Red Cell Distribution Width 12.3 % (12.1-15.1); White Blood Count 6.5 10^3/uL (4.0-10.0)
[2022-05-04 05:24] LABS: NT Pro B Type Natriuretic Pept 1030 pg/mL (0-125); Procalcitonin 0.11 ng/mL (0-0.5)
[2022-05-04 05:34] LABS: Blood Urea Nitrogen 12 mg/dL (6-20); C Reactive Protein 83.6 mg/L (0.0-4.9); Calcium 8.8 mg/dL (8.5-10.5); Carbon Dioxide 23 mmol/L (22-29); Chloride 93 mmol/L (98-107); Glucose 226 mg/dL (65-115); Magnesium 1.4 mg/dL (1.7-2.3); Osmolality Calculated 279 mOsm/kg (285-295); Sodium 131 mmol/L (136-145)
[2022-05-04 05:42] LABS: Anion Gap 18.2 (5-19); Potassium 3.2 mmol/L (3.5-5.1)
[2022-05-04 08:09] LABS: Glucose Point of Care 235 mg/dL (70-110)
[2022-05-04] MEDS: BuSPIRONE 10 mg Tablet PO ×3 (08:11→20:42)
[2022-05-04] MEDS: doxycycline 100 mg Tablet PO ×2 (08:11→17:17)
[2022-05-04] MEDS: OLANZapine 10 mg TABLET OG-TUBE ×2 (08:12→17:17)
[2022-05-04] MEDS: ARIPiprazole 10 mg Tablet PO (08:12)
[2022-05-04] MEDS: insulin lispro 100 unit/1 mL SUBCUT ×4 (08:12→20:42)
[2022-05-04] MEDS: pantoprazole 40 mg SDV IVP (08:12)
[2022-05-04] MEDS: lidocaine 1% 5 ML in potassium chloride premix 100 ML 25 ML IV (09:20)
[2022-05-04] MEDS: magnesium sulfate premix 4 GM/100 ML PREMIX IV (09:51)
[2022-05-04] MEDS: potassium chloride ER 20 mEq Tablet 40 MEQ PO (10:05)
--- NOTE | 2022-05-04 10:31 | PC.NURSE ---
weaned off propofol and extubated at this time head of bed elevated placed on heated high flow at this time .
[2022-05-04 11:00] LABS: Glucose Point of Care 281 mg/dL (70-110)
--- NOTE | 2022-05-04 12:40 | PC.NURSE ---
up ambulated with physical therapy in wall remains weak .. ot here to help with strength building to help eat up in chair.
--- NOTE | 2022-05-04 14:41 | PM.PN ---
Subjective Subjective: Patient was seen this morning, early this morning he was agitated with nursing staff, he had to place back on Precedex, this morning during my examination he is alert and oriented x3, follows all commands he adamantly apologizes to nursing staff, he tells me that this is all his fault, he is willing to work with us, willing to follow the rules, Vitals/I&O/Wt Last Vital Signs Temp 97.6 F 05/04/22 12:00 Pulse 86 05/04/22 12:00 Resp 24 H 05/04/22 12:00 BP 144/89 05/04/22 12:00 Pulse Ox 89 L 05/04/22 12:00 O2 Del Method 05/04/22 08:59 O2 Flow Rate 4 05/04/22 08:59 FiO2 35 05/01/22 11:00 05/03/22 05/04/22 05/04/22 22:59 06:59 14:59 Intake Total 398.273 / 1666.745 801.378 / 2468.123 1035.379 / 1035.379 Output Total 1100 / 7350 400 / 7750 700 / 700 Balance -701.727 / -5683.255 401.378 / -5281.877 335.379 / 335.379 Weight last 48 hrs Weight 106.339 kg Weight 109.911 kg Physical Exam Const: COMMON NORMALS: no acute distress and patient oriented x3 Resp: COMMON NORMALS: normal respiratory effort, No retractions and No use of accessory muscles AUSCULTATION: crackles Cardio: COMMON NORMALS: regular rate, regular rhythm, S1 normal heart sound present and S2 normal heart sound present RATE: regular rate RHYTHM: regular rhythm HEART SOUNDS: S1 normal heart sound present and S2 normal heart sound present GI: COMMON NORMALS: Normal to inspection, nondistended, normoactive bowel sounds present and non-tender Extremity: COMMON NORMALS: no pedal edema Neuro: COMMON NORMALS: patient oriented x3 Psych: COMMON NORMALS: mental status grossly normal Urinary Catheter Management: Rowe: Cath Placed During This Visit: yes, but has since been removed by the nurse Reason for Continuing Indwelling Catheter: Other Urinary Catheter Date of Insertion: 04/24/22 Urinary Catheter Time of Insertion: 20:30 Date Urinary Catheter Removed: 05/03/22 Time Urinary Catheter Discontinued: 22:38 Data 05/04/22 04:16 05/04/22 04:16 A&P Assessment and plan (1) Substance abuse: (2) Essential hypertension: (3) Psychiatric care: (4) Rhabdomyolysis: (5) CAD (coronary artery disease): (6) Anxiety and depression: (7) Diabetes mellitus, with long-term current use of insulin: (8) GERD (gastroesophageal reflux disease): (9) Schizophrenia: (10) H/O heart valve replacement with bioprosthetic valve: (11) Ventilator dependent: (12) Drug overdose: (13) Suicide attempt: (14) Combative behavior: (15) Agitation: (16) Alcohol abuse: (17) Obstructive sleep apnea: (18) Lacerations of multiple sites without complication: Plan #Acute encephalopathy -Initially secondary to substance abuse, pneumonia -Persistent encephalopathy, likely secondary to withdrawal from psychotropic medications, resolving -Resume psychotropic medications -This morning is alert oriented x3 #Polysubstance abuse Currently admitted since April 24 after presenting to the emergency room with acute overdose with reportedly heroin and methamphetamine and possibly gasoline. Urine tox screen is positive for amphetamines, benzos, marijuana, alcohol. Negative for salicylates. - Poison control contacted by ER. - Extubated on 04/30, prolonged intubation due to withdrawal. Resumed aripiprazole 10 mg daily, , olanzapine 10 mg twice daily. Trazodone 50 at bedtime and buspirone which are his reported home medications. Psychiatry has been consulted to further optimize medications continues on precedex infusion at max doses # Fever , possible sepsis Fever now resolved May be 2/2 resolving sepsis and taking off propofol Diagnosed with aspiration pnuemonia upon admission treated with Zosyn/Vancomycin ---> changed to meropenem and vancomycin on 04/29 with no fever. De-escalate antibiotics to doxycycline sputum cultures showing Staphylococcus species CXR showing improving infiltrates, doubt that untreated pneumonia is the cause of his current symptoms. Sputum cx with coag neg staph, h/o MRSA, currenlty both appropriately covered blood cx taken , currently negative to date no indwelling iv lines echo taken, ARSEN additionally performed due to history of bioprosthetic heart valve mitral and aortic and high concern for endocarditis and an IV drug user. No vegetations noted. His aortic root did look dilated will need CTA cardiac as outpatient. Influenza and covis negative. Alternatively propofol may have been a cause of ongoing fever. now resolved #Bilateral pneumonia -CT chest with evidence of bilateral lower lobe consolidation. CXR shows serial improvement On meropenem and vancomycin, de-escalated to doxycycline #Metabolic acidosis most likely secondary to drug intoxication #Mild rhabdomyolysis Now resolved #Obstructive sleep apnea -Sleep study as outpatient #Type 2 diabetes mellitus, insulin-dependent -Continue on low-dose intensity sliding scale every 6 hours. Resume diet today now that extubated. #History of coronary artery disease #History of aortic valve replacement #Hypertension ? Patient on lisinopril 20 mg daily at home. Holding antihypertensives for now. Currently MAp ranging between 60-65. #Requiring 3 L, hypoxia -Likely secondary pneumonia -Likely secondary to fluid overload, received Lasix yesterday 7 L out, on 4 L -We will give another 20 mg Lasix today, monitor urine output -Replace potassium, replace magnesium -Likely discharge to n.p.o. 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XXXA
[2022-05-04] MEDS: FUROsemide 10 mg/mL SDV 2mL 20 MG IVP (14:53)
--- NOTE | 2022-05-04 16:32 | P.NPUPN_ITS ---
Subjective NPU Subjective: Patient presented today reporting that he is feeling a little bit better. We discussed the fact that he was still on oxygen and there were other interventions that the hospitalist wanted to explore. We did discuss the likelihood of transfer to the neuropsychiatric unit tomorrow for ongoing mental health treatment. He was open to this plan. Mental Status Exam MSE Comments: This is an obese white male in hospital gown with limited grooming and eye contact with poor dentition.? No abnormal movements except for psychomotor retardation.? Significant tattooing over his exposed skin including his stomach with statement 100% Hon[place] tattoo on.? Mostly cooperative with exam in mild vet distress.? Speech was dysarthric and increased rate and volume.? Mood described as a little better, affect congruent.? Thought process more organized.? Thought content: Patient did not report any suicidal and homicidal ideation, there were no delusions reported or noted, he did not report auditory or visual hallucinations.? Attention and concentration are improving and memory appears more reliable, but none were formally tested.? He is alert and oriented x3.? Insight and judgment are impaired, impulse control appears impaired. Vitals/I&O/Wt Last Vital Signs Temp 97.6 F 05/04/22 16:00 Pulse 114 05/04/22 16:00 Resp 20 H 05/04/22 16:00 BP 145/94 05/04/22 16:00 Pulse Ox 92 05/04/22 14:00 O2 Del Method O2 Flow Rate FiO2 35 05/01/22 11:00 Weight last 48 hrs Weight 106.141 kg Weight 106.339 kg Physical Exam Urinary Catheter Management: Rowe: Cath Placed During This Visit: yes, but has since been removed by the nurse Reason for Continuing Indwelling Catheter: Other Urinary Catheter Date of Insertion: 04/24/22 Urinary Catheter Time of Insertion: 20:30 Date Urinary Catheter Removed: 05/03/22 Time Urinary Catheter Discontinued: 22:38 Data NPU 05/05/22 08:15 05/05/22 06:10 Micro: Microbiology 04/30/22 08:18 Blood Culture - Final Blood NO GROWTH AFTER 5 DAYS 04/30/22 08:14 Blood Culture - Final Blood NO GROWTH AFTER 5 DAYS Microbiology 04/30/22 08:18 Blood Blood Culture - Final NO GROWTH AFTER 5 DAYS 04/30/22 08:14 Blood Blood Culture - Final NO GROWTH AFTER 5 DAYS A&P Assessment and plan (1) Psychosis: (2) Agitated depression: (3) Rhabdomyolysis: (4) URI with cough and congestion: (5) Decreased calculated GFR: (6) Diabetes mellitus, with long-term current use of insulin: (7) GERD (gastroesophageal reflux disease): (8) Essential hypertension: (9) Methamphetamine abuse: (10) Schizophrenia: (11) Substance abuse: (12) History of bacterial endocarditis: (13) Lacerations of multiple sites without complication: (14) Combative behavior: (15) Suicide attempt: (16) Obstructive sleep apnea: Plan This is a 52-year-old white male with a long history of depression,psychosis and addiction particularly methamphetamine which is often led to psychosis and agitation who presented to the emergency department having received reportedly had a suicide attempt and subsequently receiving ketamine which he has had a history of adverse response to which again led to him being intubated and placed on a 96-hour hold. He was extubated and finds himself with psychomotor agitation during the consult. 1.? Continue current medication.? Restart his antipsychotic medication and work towards giving as a long-acting injection 2.? Give Geodon 20 mg p.o. or IM twice daily as needed for agitation. 5. Transfer to neuropsychiatric unit when stable medically. Involuntary Hold Information 96 Hour Hold: 96 Hour Involuntary Admission: No Attestations NPU Medical Necessity Statement*: N/A. Please see primary team note for medical necessity. However patient in need of inpatient psychiatric treatment when medically stable. Coding Level of Care Code Acute Climbing Guide for [facility] Diagnoses Psychosis F29 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
[2022-05-04 17:24] LABS: Glucose Point of Care 317 mg/dL (70-110)
[2022-05-04] MEDS: morphine 4 mg/mL SDV 1 mL 1 MG IVP (17:29)
[2022-05-04 20:26] LABS: Glucose Point of Care 254 mg/dL (70-110)
[2022-05-04] MEDS: trazodone 50 mg Tablet OG-TUBE (20:42)
[2022-05-05] VITALS (10 sets, daily range): BP systolic 135–175; BP diastolic 73–111; PULSE 91–115; RESP 13–32; TEMP 36.7–37.1; O2SAT 91–98
[2022-05-05] MEDS: ondansetron 2 mg/ML SDV 2 mL 4 MG IVP (01:12)
--- NOTE | 2022-05-05 06:08 | PC.NURSE ---
Addendum entered by Arron Ambrocio RN 05/05/22 06:53: Witnessed waste by Arron COYNE Original Note: Precedex waste 115ml witnessed by nurse STANFORD Heller
--- NOTE | 2022-05-05 06:27 | PC.NURSE ---
TRANSFER FROM ICU Pt received from ICU via wheelchair. Alert, oriented and pleasant. Says he feels he has made alot of improvement in last couple of days. Says is still weak but transferred from wheelchair with SBA. 1:[address] recording monitor applied. Oriented to new room. Call light in reach
[2022-05-05 06:47] LABS: Glucose Point of Care 313 mg/dL (70-110)
[2022-05-05 06:49] LABS: NT Pro B Type Natriuretic Pept 716 pg/mL (0-125); Procalcitonin 0.06 ng/mL (0-0.5)
[2022-05-05 07:00] LABS: Blood Urea Nitrogen 11 mg/dL (6-20); Carbon Dioxide 21 mmol/L (22-29); Chloride 98 mmol/L (98-107); Glucose 250 mg/dL (65-115); Magnesium 1.6 mg/dL (1.7-2.3); Osmolality Calculated 286 mOsm/kg (285-295); Sodium 134 mmol/L (136-145)
[2022-05-05 07:10] LABS: Anion Gap 18.5 (5-19); Potassium 3.5 mmol/L (3.5-5.1)
[2022-05-05] MEDS: pantoprazole 40 mg SDV IVP (09:38)
[2022-05-05] MEDS: OLANZapine 10 mg TABLET OG-TUBE (09:38)
[2022-05-05] MEDS: ARIPiprazole 10 mg Tablet PO (09:38)
[2022-05-05] MEDS: doxycycline 100 mg Tablet PO ×2 (09:38→18:13)
[2022-05-05] MEDS: BuSPIRONE 10 mg Tablet PO ×3 (09:38→20:45)
[2022-05-05] MEDS: insulin lispro 100 unit/1 mL SUBCUT ×4 (09:39→20:45)
[2022-05-05] MEDS: LORazepam 2 mg/mL INJ 1 mL IVP (09:58)
[2022-05-05 11:28] LABS: Red Blood Count 4.22 10^6/uL (4.1-5.3); White Blood Count 5.9 10^3/uL (4.0-10.0)
[2022-05-05 11:30] LABS: Hemoglobin 12.8 g/dL (11.7-16.6); Mean Corpuscular HGB Conc 30.5 g/dL (30.0-36.0); Mean Corpuscular Hemoglobin 30.3 pg (28.0-34.0); Mean Corpuscular Volume 99.5 fl (80-94); Red Cell Distribution Width 12.5 % (12.1-15.1)
[2022-05-05 11:31] LABS: Lymphocytes # 1.3 10^3/uL (0.8-4.8); Lymphocytes % 22.5 %; Mean Platelet Volume 11.5 fL (7.4-10.4); Monocytes # 0.5 10^3/uL (0.2-0.9); Monocytes % 7.6 %; Platelet Count 48 10^3/cmm (130-400); Slide Review Slide Review Perform
--- NOTE | 2022-05-05 11:36 | PM.PN ---
Subjective Subjective: Patient states that he is feeling better. Endorses productive cough. Denies fevers, chills, chest pain, nausea or emesis. Medications: Reviewed: Yes Vitals/I&O/Wt Last Vital Signs Temp 98.8 F 05/05/22 06:45 Pulse 96 05/05/22 06:45 Resp 17 05/05/22 06:45 BP 150/88 05/05/22 06:45 Pulse Ox 91 05/05/22 06:45 O2 Del Method 05/05/22 04:00 O2 Flow Rate 2 05/05/22 04:00 FiO2 35 05/01/22 11:00 05/04/22 05/05/22 05/05/22 22:59 06:59 14:59 Intake Total 1180 / 2215.379 360 / 2575.379 240 / 240 Output Total 2350 / 3050 Balance -1170 / -834.621 360 / -474.621 240 / 240 Weight last 48 hrs Weight 106.141 kg Weight 106.339 kg Physical Exam Narrative: General: Patient is awake and alert. Head: Normocephalic. Atraumatic. Neck: No JVD. Cardiovascular: RRR. No gallops. No murmurs. Lungs: Breath sounds diminished in bilateral bases, no use of accessory muscles, no crackles or wheezes. Skin: No jaundice. No rashes. Abdomen: Normal bowel sounds, abdomen soft and nontender. Genito Urinary: Genital exam not performed since complaints not related. Rectal: Rectal exam not performed since no symptoms indicated blood loss. Extremities: No cyanosis or clubbing. Musculoskeletal: 5/5 strength, normal range of motion, no swollen or erythematous joints. Neurological: Moves all 4 extremities. No myoclonus. Urinary Catheter Management: Rowe: Cath Placed During This Visit: yes, but has since been removed by the nurse Reason for Continuing Indwelling Catheter: Other Urinary Catheter Date of Insertion: 04/24/22 Urinary Catheter Time of Insertion: 20:30 Date Urinary Catheter Removed: 05/03/22 Time Urinary Catheter Discontinued: 22:38 Data 05/05/22 08:15 05/05/22 06:10 Micro: Microbiology 04/30/22 08:18 Blood Culture - Final Blood NO GROWTH AFTER 5 DAYS 04/30/22 08:14 Blood Culture - Final Blood NO GROWTH AFTER 5 DAYS A&P Assessment and plan (1) Suicide attempt: Suicide precautions Sitter Psychiatry following Transfer to NPU (2) Schizophrenia: Continue Zyprexa Continue Abilify (3) Substance abuse: Polysubstance abuse Acute toxic encephalopathy, resolved Would benefit from cessation (4) Pneumonia: Acute respiratory failure, resolved Fever, resolved Sputum culture with Staph Sensitivities reviewed, sensitive to tetracyclines Continue doxycycline (5) Metabolic acidosis: Very mild Suspect 2/2 pneumonia Treat underlying infection (6) H/O heart valve replacement with bioprosthetic valve: (7) Diabetes mellitus, with long-term current use of insulin: SSI Avoid hypoglycemia (8) Anxiety and depression: Continue buspar (9) CAD (coronary artery disease): Not on treatment (10) Essential hypertension: Restart lisinopril at lower dose (11) Combative behavior: Improved, calm on exam today (12) Agitation: Improved, calm on exam today (13) Alcohol abuse: Out of window for acute withdrawal Would benefit from cessation (14) Obstructive sleep apnea: Would benefit from outpatient sleep study (15) GERD (gastroesophageal reflux disease): Continue pantoprazole (16) Rhabdomyolysis: Status post treatment (17) DDD (degenerative disc disease), lumbosacral: Tylenol as needed Plan DVT ppx: Lovenox Code status: Full Code Attestations Medical Necessity Statement*: Patient requires ongoing hospitalization for supportive care and psychiatric care. 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
[2022-05-05] MEDS: lisinopril 10 mg Tablet PO ×2 (13:50→18:14)
--- NOTE | 2022-05-05 15:29 | PC.NURSE ---
Pt safely transferred to NPU by this nurse and security.
--- NOTE | 2022-05-05 17:50 | P.NPUPN_ITS ---
Subjective NPU Subjective: Patient presented today struggling somewhat with basic self-care. He had visually started using a rolling walker to get around that he was fairly unstable. While he was eating his dinner he was missing his mouth, spitting things everywhere that he ultimately said he was not hungry. He said he needed to get home to his bed which is something that he is certainly sad the past to create an urgency about discharge. However we talked about what happened that led up to his hospitalization and the importance of us figuring things out before he returns to that situation. Mental Status Exam MSE Comments: This is an obese white male in hospital gown with limited grooming and eye contact with poor dentition.? No abnormal movements except for mild psychomotor agitation.? Significant tattooing over his exposed skin including his stomach with statement 100% [place] tattoo on it.? Mostly cooperative with exam in mild to moderate distress.? Speech was dysarthric and increased rate and volume.? Mood described as okay, affect a bit flustered.? Thought process more organized.? Thought content: Patient did not report any suicidal and homicidal ideation, there were no delusions reported or noted, he did not report auditory or visual hallucinations.? Attention and concentration are improving and memory appears more reliable, but none were formally tested.? He is alert and oriented x3.? Insight and judgment are impaired, impulse control appears impaired. Vitals/I&O/Wt Last Vital Signs Temp 98.1 F 05/05/22 22:00 Pulse 104 H 05/05/22 22:00 Resp 24 H 05/05/22 22:00 BP 160/88 05/05/22 22:00 Pulse Ox 98 05/05/22 22:00 O2 Del Method 05/05/22 22:00 O2 Flow Rate 0 05/05/22 20:00 FiO2 35 05/01/22 11:00 05/05/22 05/05/22 05/06/22 14:59 22:59 06:59 Intake Total 240 / 240 Balance 240 / 240 Weight last 48 hrs Weight 106.141 kg Weight 106.339 kg Physical Exam Urinary Catheter Management: Rowe: Cath Placed During This Visit: yes, but has since been removed by the nurse Reason for Continuing Indwelling Catheter: Other Urinary Catheter Date of Insertion: 04/24/22 Urinary Catheter Time of Insertion: 20:30 Date Urinary Catheter Removed: 05/03/22 Time Urinary Catheter Discontinued: 22:38 Data NPU 05/05/22 08:15 05/05/22 06:10 Micro: Microbiology 04/30/22 08:18 Blood Culture - Final Blood NO GROWTH AFTER 5 DAYS 04/30/22 08:14 Blood Culture - Final Blood NO GROWTH AFTER 5 DAYS Microbiology 04/30/22 08:18 Blood Blood Culture - Final NO GROWTH AFTER 5 DAYS 04/30/22 08:14 Blood Blood Culture - Final NO GROWTH AFTER 5 DAYS A&P Assessment and plan (1) Psychosis: (2) Agitated depression: (3) Rhabdomyolysis: (4) URI with cough and congestion: (5) Decreased calculated GFR: (6) Diabetes mellitus, with long-term current use of insulin: (7) GERD (gastroesophageal reflux disease): (8) Essential hypertension: (9) Methamphetamine abuse: (10) Schizophrenia: (11) Substance abuse: (12) History of bacterial endocarditis: (13) Lacerations of multiple sites without complication: (14) Combative behavior: (15) Suicide attempt: (16) Obstructive sleep apnea: Plan This is a 52-year-old white male with a long history of depression,psychosis and addiction particularly methamphetamine which is often led to psychosis and agitation who presented to the emergency department having received reportedly had a suicide attempt and subsequently receiving ketamine which he has had a history of adverse response to which again led to him being intubated and placed on a 96-hour hold. He was extubated and finds himself with psychomotor lucy tation during the consult. 1.? Continue current medication.? Restart his antipsychotic medication and work towards giving as a long-acting injection 2.? Continue every 15 minute checks for safety. 3. Encourage individual, group milieu therapy. 4. Encourage sober living treatment after discharge to the highest level of care to which he is willing to commit. 5. Get collateral information from family to figure out the circumstances about him returning home. Involuntary Hold Information 96 Hour Hold: 96 Hour Involuntary Admission: No Attestations NPU Medical Necessity Statement*: Inpatient hospitalization is medically necessary and the clinically appropriate intervention at this time. We will monitor m edication to make changes as indicated. Patient will be in the hospital for over two midnights. Likely length of stay 3 to 5 days. 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
[2022-05-05] MEDS: acetaminophen 325 mg Tablet 650 MG PO (18:13)
[2022-05-05 18:28] LABS: Glucose Point of Care 296 mg/dL (70-110)
[2022-05-05 20:04] LABS: Glucose Point of Care 262 mg/dL (70-110)
--- NOTE | 2022-05-05 20:40 | PC.NURSE ---
Patient yelling out in room for nurse. This sign writer letterer or painter went to check on patient and found patient sitting up in bed. Patient stated he was going to kill his brother and pointed at wall stating He's right there and I'm going to punch his lights out. Attempted to orientate patient to reality but patient continued to escalate in agitation. Patient stated Don't you see him and hear what he is saying to me? I'm going to kill him now! Again this sign writer letterer or painter attempted to orientate patient to reality with no success. At that time patient was offered PRN's to help with hallucinations. PRN Haldol and zyprexa po given without difficulty. Staff stayed with patient for several minutes. Patient did state he wanted the walker taken out of his room because he would hit somebody with it and hurt them. Walker removed at that time.
[2022-05-05] MEDS: OLANZapine 5 mg ODT PO (20:44)
[2022-05-05] MEDS: haloperidol 5 mg Tablet PO (20:44)
[2022-05-05] MEDS: ibuprofen 600 mg Tablet PO (20:44)
[2022-05-05] MEDS: trazodone 50 mg Tablet OG-TUBE (20:45)
--- NOTE | 2022-05-05 22:45 | PC.NURSE ---
Patient resting quietly in bed with eyes closed at this time. No further behaviors.
[2022-05-06 06:00] VITALS: BP 146/87; PULSE 111; RESP 24; TEMP 36.6; O2SAT 96
[2022-05-06 06:19] LABS: Glucose Point of Care 342 mg/dL (70-110)
[2022-05-06] MEDS: OLANZapine 5 mg ODT PO ×2 (06:23→20:14)
[2022-05-06] MEDS: haloperidol 5 mg Tablet PO ×2 (06:23→20:14)
--- NOTE | 2022-05-06 06:28 | PC.NURSE ---
Patient ambulated to nurse's station requesting a drink. Gait unsteady. Offered walker to patient and patient stated I don't want that damn thing. I will just hit somebody with it. Patient very anxious and agitated. Assisted patient back to room. Patient continued to be loud and agitated. Stated I killed him last night and I will kill again. PRN offered at that time. Zyprexa and haldol po given as ordered. Cooperative with administration.
[2022-05-06 08:01] VITALS: PULSE 113; O2SAT 95
[2022-05-06 08:06] LABS: Glucose Point of Care 348 mg/dL (70-110)
[2022-05-06] MEDS: insulin lispro 100 unit/1 mL SUBCUT ×3 (10:05→20:28)
[2022-05-06] MEDS: lisinopril 10 mg Tablet PO (11:26)
[2022-05-06] MEDS: ARIPiprazole 10 mg Tablet PO (11:26)
[2022-05-06] MEDS: BuSPIRONE 10 mg Tablet PO ×3 (11:26→20:14)
[2022-05-06] MEDS: doxycycline 100 mg Tablet PO ×2 (11:26→20:19)
[2022-05-06] MEDS: haloperidol inj 5 mg/mL INJ 1 mL IM (11:50)
[2022-05-06] MEDS: LORazepam 2 mg/mL INJ 1 mL IM (11:50)
[2022-05-06] MEDS: diphenhydrAMINE 50 mg/mL SDV 1mL IM (11:50)
[2022-05-06 12:51] LABS: Glucose Point of Care 297 mg/dL (70-110)
[2022-05-06 14:00] VITALS: BP 172/91; PULSE 112; RESP 20; TEMP 36.8; O2SAT 95
[2022-05-06] MEDS: pneumococcal (23 valent) SDV 0.5 mL IM (16:56)
[2022-05-06 17:37] LABS: Glucose Point of Care > 600 mg/dL (70-110)
--- NOTE | 2022-05-06 18:23 | P.NPUPN_ITS ---
Subjective NPU Subjective: Patient presented today reporting that he is feeling a little better. We discussed the fact that his son does not feel staying area is the best for him. He discussed an openness to consider some the options in [place] and may be able to be helpful for him. We agreed to work with the treatment team to find out which possibilities exist. Otherwise he agreed to continue using a walker and attempt to get stronger again. Mental Status Exam MSE Comments: This is an obese white male in hospital gown with limited grooming and eye contact with poor dentition.? No abnormal movements except for mild psychomotor agitation.? Significant tattooing over his exposed skin including his stomach with statement 100% Honkey tattoo on it.? Mostly cooperative with exam in mild to moderate distress.? Speech was dysarthric and increased rate and volume.? Mood described as okay, affect a bit flustered.? Thought process more organized.? Thought content: Patient did not report any suicidal and homicidal ideation, there were no delusions reported or noted, he did not report auditory or visual hallucinations.? Attention and concentration are improving and memory appears more reliable, but none were formally tested.? He is alert and oriented x3.? Insight and judgment are impaired, impulse control appears impaired. Vitals/I&O/Wt Last Vital Signs Temp 97.4 F L 05/06/22 20:08 Pulse 106 H 05/06/22 20:08 Resp 18 05/06/22 20:08 BP 162/109 05/06/22 20:08 Pulse Ox 96 05/06/22 20:08 O2 Del Method 05/06/22 08:01 O2 Flow Rate 0 05/06/22 20:00 FiO2 35 05/01/22 11:00 05/06/22 14:59 Intake Total Output Total Balance Weight last 48 hrs Weight 106.141 kg Physical Exam Urinary Catheter Management: Rowe: Cath Placed During This Visit: yes, but has since been removed by the nurse Reason for Continuing Indwelling Catheter: Other Urinary Catheter Date of Insertion: 04/24/22 Urinary Catheter Time of Insertion: 20:30 Date Urinary Catheter Removed: 05/03/22 Time Urinary Catheter Discontinued: 22:38 Data NPU 05/05/22 08:15 05/06/22 18:24 A&P Assessment and plan (1) Psychosis: (2) Agitated depression: (3) Rhabdomyolysis: (4) URI with cough and congestion: (5) Decreased calculated GFR: (6) Diabetes mellitus, with long-term current use of insulin: (7) GERD (gastroesophageal reflux disease): (8) Essential hypertension: (9) Methamphetamine abuse: (10) Schizophrenia: (11) Substance abuse: (12) History of bacterial endocarditis: (13) Lacerations of multiple sites without complication: (14) Combative behavior: (15) Suicide attempt: (16) Obstructive sleep apnea: Plan This is a 52-year-old white male with a long history of depression,psychosis and addiction particularly methamphetamine which is often led to psychosis and lucy tation who presented to the emergency department having received reportedly had a suicide attempt and subsequently receiving ketamine which he has had a history of adverse response to which again led to him being intubated and placed on a 96-hour hold. He was extubated and finds himself with psychomotor agitation during the consult. 1.? Continue current medication.? Restart his antipsychotic medication and work towards giving as a long-acting injection 2.? Continue every 15 minute checks for safety. 3. Encourage individual, group milieu therapy. 4. Encourage sober living treatment after discharge to the highest level of care to which he is willing to commit. 5. Get collateral information from family to figure out the circumstances about him returning home. Involuntary Hold Information 96 Hour Hold: 96 Hour Involuntary Admission: No Attestations NPU Medical Necessity Statement*: Inpatient hospitalization is medically necessary and the clinically appropriate intervention at this time. We will monitor medication to make changes as indicated. Patient will be in the hospital for over two midnights. Likely length of stay 3 to 5 days. Coding Level of Care Code Acute Freezing Room Worker for [facility] Fwd Diagnoses Psychosis F29 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
[2022-05-06 18:54] LABS: Glucose 411 mg/dL (65-115)
--- NOTE | 2022-05-06 18:58 | PC.NURSE ---
BP did not register on glucometer, blood drawn stat result is 411. Contacted with results.
[2022-05-06 19:41] LABS: Glucose Point of Care 468 mg/dL (70-110)
[2022-05-06 20:08] VITALS: BP 162/109; PULSE 106; RESP 18; TEMP 36.3; O2SAT 96
--- NOTE | 2022-05-06 20:10 | PC.NURSE ---
Patient became agitated and was noted to be responding to IS. Patient stated things he was seeing and hearing were making him want to hurt someone. Attempted to redirect but patient continued to respond to IS. PRN's offered and patient agreed to take stating I just want this to stop. PRN zyprexa and haldol po given as ordered. Staff stayed with patient for several minutes until patient was able to calm down.
[2022-05-06] MEDS: trazodone 50 mg Tablet OG-TUBE (20:14)
[2022-05-07] MEDS: hyDROXYzine 25 mg Capsule 50 MG PO ×2 (04:53→20:15)
[2022-05-07] MEDS: ibuprofen 600 mg Tablet PO (04:53)
[2022-05-07 06:00] VITALS: BP 139/87; PULSE 98; RESP 18; TEMP 36.7; O2SAT 96
[2022-05-07 08:07] LABS: Glucose Point of Care 387 mg/dL (70-110)
[2022-05-07] MEDS: BuSPIRONE 10 mg Tablet PO ×3 (09:05→20:15)
[2022-05-07] MEDS: ARIPiprazole 10 mg Tablet PO (09:05)
[2022-05-07] MEDS: insulin lispro 100 unit/1 mL SUBCUT ×4 (09:05→20:15)
[2022-05-07] MEDS: lisinopril 10 mg Tablet PO (09:06)
[2022-05-07] MEDS: doxycycline 100 mg Tablet PO ×2 (09:06→17:45)
--- NOTE | 2022-05-07 09:42 | PC.OT ---
PRIOR TO ATTEMPTED OT TREATMENT THIS THERAPIST ASKED NURSING IF PATIENT WAS APPROPRIATE FOR TREATMENT THIS A.M. NURSING REPORTS THAT PATIENT HAS BEEN PLEASANT AND WOULD LIKELY BE AGREEABLE TO OT TREATMENT. PATIENT WAS SNORING UPON MY ENTRANCE TO HIS ROOM BUT DID AWAKEN EASILY. I ASKED IF I COULD VISIT WITH HIM FOR A FEW MINUTES AND HE STATED, NO, NOT RIGHT NOW. I'M COLD . I ASKED HIM IF HE WOULD LIKE ANOTHER BLANKET AND HE ANSWERED, YES . THIS THERAPIST RETRIEVED ANOTHER BLANKET AND INFORMED THE PATIENT THAT I WAS PLACING IT ON HIM, HOPED HE WOULD BE WARMER AND THAT I WOULD ATTEMPT TO SEE HIM LATER. AFTER LEAVING THE NPU UNIT; APROX 5 MINUTES LATER, NURSING STAFF CALLED THERAPY OFFICE AND STATED THAT THE PATIENT STATED, IF THAT LADY THAT WAS BOTHERING ME EARLIER (THERAPY) WANTS TO COME BACK, SHE BETTER DO IT NOW. THIS THERAPIST RETURNED TO THE UNIT; GATHERED SUPPLIES FOR GROOMING TASK AND WENT TO THE PATIENTS ROOM. THE THERAPIST STATED, GOOD MORNING, I HEARD THAT YOU ASKED ME TO COME BACK TO SEE YOU. THE PATIENT RESPONDED, NOT NOW LATER. THIS THERAPIST RESPONDED, I CAME BACK TO SEE YOU YOU REQUESTED AND WE ARE GOING TO PERFORM THERAPY NOW, SINCE I'M HERE. NURSING ALSO PRESENT IN ROOM AND STATES, WHY DON'T YOU WORK WITH THERAPY AND I HAVE YOUR MEDICINES. THE PATIENT SAT UP IN BED ABRUPTLY; TOOK HIS MEDICATIONS AND THREW THE MEDICINE CUP ON THE FLOOR. STATES, WHAT DO YOU WANT ME TO DO? I'M NOT WALKING! I STATED THAT I WAS NOT THERE FOR THAT PURPOSE, REMINDED HIM THAT THE THERAPIST YESTERDAY HELPED HIM WITH FEEDING TASKS; AT WHICH HE STATED, I DON'T NEED ANY F----- HELP WITH EATING. I INFORMED THE PATIENT THAT I THOUGHT IT WOULD BE A GOOD IDEA TO WALK TO THE SINK FOR GROOMING TASKS. PATIENT BECAME BELLIGERENT STATING, I HAVEN'T F----- SLEPT ALL NIGHT AND YOU COME IN HERE AND WAKE ME UP. I INSTRUCTED THE PATIENT TO LIE BACK DOWN IN BED AND THAT I WOULD RETURN AT ANOTHER TIME. NURSING PRESENT FOR THIS CONVERSATION.
--- NOTE | 2022-05-07 11:41 | W.PM.NPUPNS ---
Subjective NPU Subjective: Patient presented today reporting improvement and showing advancement in his overall physical health. Still working to keep his diabetes managed but he is now walking without a walker regaining his strength. He appears to be doing well with the Aron and Adam[facility] and we discussed him working with the treatment team concerning discharge planning. He seems to be accepting not returning to his dad's place and is now discussing some vet [place] possibly directly patient versus something more connected with his son. Mental Status Exam MSE Comments: This is an obese white male in hospital gown with limited grooming and eye contact with poor dentition.? No abnormal movements except for mild psychomotor agitation.? Significant tattooing over his exposed skin including his stomach with statement 100% [place] tattoo on it.? Cooperative with exam in mild distress.? Speech was dysarthric but more normal rate and volume.? Mood described as better, affect congruent.? Thought process more organized.? Thought content: Patient did not report any suicidal and homicidal ideation, there were no delusions reported or noted, he did not report auditory or visual hallucinations.? Attention and concentration are improving and memory appears more reliable, but none were formally tested.? He is alert and oriented x3.? Insight and judgment are improving, impulse control appears improving. Vitals/I&O/Wt Last Vital Signs Temp 98.1 F 05/07/22 06:00 Pulse 98 05/07/22 06:00 Resp 18 05/07/22 06:00 BP 139/87 05/07/22 06:00 Pulse Ox 96 05/07/22 06:00 O2 Del Method 05/06/22 08:01 O2 Flow Rate 0 05/07/22 08:00 FiO2 35 05/01/22 11:00 05/06/22 05/07/22 05/07/22 22:59 06:59 14:59 Intake Total 455 / 455 Output Total 700 / 700 Balance -245 / -245 Physical Exam Urinary Catheter Management: Rowe: Cath Placed During This Visit: yes, but has since been removed by the nurse Reason for Continuing Indwelling Catheter: Other Urinary Catheter Date of Insertion: 04/24/22 Urinary Catheter Time of Insertion: 20:30 Date Urinary Catheter Removed: 05/03/22 Time Urinary Catheter Discontinued: 22:38 Data NPU 05/05/22 08:15 05/06/22 18:24 A&P Assessment and plan (1) Psychosis: (2) Agitated depression: (3) Rhabdomyolysis: (4) URI with cough and congestion: (5) Decreased calculated GFR: (6) Diabetes mellitus, with long-term current use of insulin: (7) GERD (gastroesophageal reflux disease): (8) Essential hypertension: (9) Methamphetamine abuse: (10) Schizophrenia: (11) Substance abuse: (12) History of bacterial endocarditis: (13) Lacerations of multiple sites without complication: (14) Combative behavior: (15) Suicide attempt: (16) Obstructive sleep apnea: Plan This is a 52-year-old white male with a long history of depression,psychosis and addiction particularly methamphetamine which is often led to psychosis and agitation who presented to the emergency department having received reportedly had a suicide attempt and subsequently receiving ketamine which he has had a history of adverse response to which again led to him being intubated and placed on a 96-hour hold. He was extubated and finds himself with psychomotor agitation during the consult. 1.? Continue current medication.? Continue Abilify and BuSpar and consider Abilify injection. 2.? Continue every 15 minute checks for safety. 3. Encourage individual, group milieu therapy. 4. Encourage sober living treatment after discharge to the highest level of care to which he is willing to commit. 5. Work with treatment team for likely discharge to the [facility]. Involuntary Hold Information 96 Hour Hold: 96 Hour Involuntary Admission: No Attestations NPU Medical Necessity Statement*: Inpatient hospitalization is medically necessary and the clinically appropriate intervention at this time. We will monitor medication to make changes as indicated. Likely length of stay 3 to 5 days. Coding Level of Care Code Acute Technical Editor for g Fwd Diagnoses Psychosis F29 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
[2022-05-07] MEDS: acetaminophen 325 mg Tablet 650 MG PO ×2 (12:00→15:58)
[2022-05-07 12:19] LABS: Glucose Point of Care 269 mg/dL (70-110)
[2022-05-07 14:00] VITALS: BP 155/93; PULSE 101; RESP 18; TEMP 36.7; O2SAT 95
[2022-05-07] MEDS: OLANZapine 5 mg ODT PO ×2 (14:58→21:08)
[2022-05-07 17:16] LABS: Glucose Point of Care 352 mg/dL (70-110)
[2022-05-07 20:00] LABS: Glucose Point of Care 275 mg/dL (70-110)
[2022-05-07] MEDS: trazodone 50 mg Tablet OG-TUBE (20:15)
[2022-05-07 20:31] VITALS: BP 164/104; PULSE 90; RESP 19; TEMP 36.8; O2SAT 96
[2022-05-07] MEDS: trazodone 50 mg Tablet PO ×2 (21:08→21:52)
[2022-05-07] MEDS: haloperidol 5 mg Tablet PO (21:52)
[2022-05-08 06:00] VITALS: BP 155/87; PULSE 110; RESP 19; TEMP 37.1; O2SAT 94
[2022-05-08 07:51] LABS: Glucose Point of Care 322 mg/dL (70-110)
[2022-05-08] MEDS: insulin lispro 100 unit/1 mL SUBCUT ×4 (09:22→21:20)
[2022-05-08] MEDS: ARIPiprazole 10 mg Tablet PO (09:23)
[2022-05-08] MEDS: lisinopril 10 mg Tablet PO (09:23)
[2022-05-08] MEDS: BuSPIRONE 10 mg Tablet PO ×3 (09:23→21:21)
[2022-05-08] MEDS: doxycycline 100 mg Tablet PO ×2 (09:23→18:02)
[2022-05-08] MEDS: ibuprofen 600 mg Tablet PO (12:08)
[2022-05-08 12:29] LABS: Glucose Point of Care 207 mg/dL (70-110)
[2022-05-08] MEDS: OLANZapine 5 mg ODT PO (13:19)
[2022-05-08] MEDS: haloperidol 5 mg Tablet PO (13:19)
--- NOTE | 2022-05-08 13:27 | PC.NURSE ---
PT CAME TO NURSES STATION AND REPORTED TO THIS NURSE HE WAS HAVING INCREASED ANXIETY AND WHEN ASKED IF HAVING SI/HI PT WAS UNABLE TO ANSWER, PT STATES HE WAS HEARING THE VOICES . PT GIVEN PRN JASON AND VIC. PT CONTRACTS FOR SAFETY WITH THIS NURSE. PT INSTRUCTED TO SPEAK TO THIS NURSE OR STAFF IF MEDS NOT EFFECTIVE AND HE NEEDED TO TALK, PT VERB UNDERSTANDING AND STATES HE WOULD COME SPEAK TO ME.
--- NOTE | 2022-05-08 13:59 | W.PM.NPUPNS ---
Subjective NPU Subjective: Patient presented today continuing to make marked improvement in his physical wellness. Walking without a walker and reporting that the medications are working fine. He did speak to his dad and possibly his son and it was agreed it was not the best idea to go back to his dad's house and we continued discussing plans for [place]. We discussed the question remains whether or not responsibly available tomorrow versus having to wait so for stable Thursday morning but he was excepting the plan of discharge to [place] in that timeframe. Mental Status Exam MSE Comments: This is an obese white male in hospital gown with limited grooming and eye contact with poor dentition.? No abnormal movements except for mild psychomotor agitation.? Significant tattooing over his exposed skin including his stomach with statement 100% [place] tattoo on it.? Cooperative with exam in mild distress.? Speech was dysarthric but more normal rate and volume.? Mood described as better, affect congruent.? Thought process more organized.? Thought content: Patient did not report any suicidal and homicidal ideation, there were no delusions reported or noted, he did not report auditory or visual hallucinations.? Attention and concentration are improving and memory appears more reliable, but none were formally tested.? He is alert and oriented x3.? Insight and judgment are improving, impulse control appears improving. Vitals/I&O/Wt Last Vital Signs Temp 98.8 F 05/08/22 06:00 Pulse 110 H 05/08/22 06:00 Resp 19 H 05/08/22 06:00 BP 155/87 05/08/22 06:00 Pulse Ox 94 05/08/22 06:00 O2 Del Method 05/08/22 06:00 O2 Flow Rate 0 05/08/22 06:00 FiO2 35 05/01/22 11:00 Physical Exam Urinary Catheter Management: Rowe: Cath Placed During This Visit: yes, but has since been removed by the nurse Reason for Continuing Indwelling Catheter: Other Urinary Catheter Date of Insertion: 04/24/22 Urinary Catheter Time of Insertion: 20:30 Date Urinary Catheter Removed: 05/03/22 Time Urinary Catheter Discontinued: 22:38 Data NPU 05/05/22 08:15 05/06/22 18:24 A&P Assessment and plan (1) Psychosis: (2) Agitated depression: (3) Rhabdomyolysis: (4) URI with cough and congestion: (5) Decreased calculated GFR: (6) Diabetes mellitus, with long-term current use of insulin: (7) GERD (gastroesophageal reflux disease): (8) Essential hypertension: (9) Methamphetamine abuse: (10) Schizophrenia: (11) Substance abuse: (12) History of bacterial endocarditis: (13) Lacerations of multiple sites without complication: (14) Combative behavior: (15) Suicide attempt: (16) Obstructive sleep apnea: Plan This is a 52-year-old white male with a long history of depression,psychosis and addiction particularly methamphetamine which is often led to psychosis and agitation who presented to the emergency department having received reportedly had a suicide attempt and subsequently receiving ketamine which he has had a history of adverse response to which again led to him being intubated and placed on a 96-hour hold. He was extubated and finds himself with psychomotor agitation during the consult. 1.? Continue current medication.? Continue Abilify and BuSpar and consider Abilify injection. 2.? Continue every 15 minute checks for safety. 3. Encourage individual, group milieu therapy. 4. Encourage sober living treatment after discharge to the highest level of care to which he is willing to commit. 5. Work with treatment team for likely discharge to the [facility]. Involuntary Hold Information 96 Hour Hold: 96 Hour Involuntary Admission: No Attestations NPU Medical Necessity Statement*: Inpatient hospitalization is medically necessary and the clinically appropriate intervention at this time. We will monitor medication to make changes as indicated. Likely length of stay 3 to 5 days. Coding Level of Care Code Acute Replanting Machine Operator for [facility] Fwd Diagnoses Psychosis F29 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
[2022-05-08 14:00] VITALS: BP 159/80; PULSE 95; RESP 20; TEMP 36.8; O2SAT 96
[2022-05-08] MEDS: acetaminophen 325 mg Tablet 650 MG PO (16:53)
[2022-05-08 17:27] LABS: Glucose Point of Care 268 mg/dL (70-110)
[2022-05-08 19:12] LABS: Glucose Point of Care 424 mg/dL (70-110)
[2022-05-08 20:46] VITALS: BP 154/106; PULSE 95; RESP 16; TEMP 36.7; O2SAT 93
[2022-05-08] MEDS: trazodone 50 mg Tablet OG-TUBE (21:21)
[2022-05-09] MEDS: hyDROXYzine 25 mg Capsule 50 MG PO (02:35)
[2022-05-09 06:00] VITALS: BP 180/106; PULSE 112; RESP 18; TEMP 37; O2SAT 94
[2022-05-09 07:50] LABS: Glucose Point of Care 272 mg/dL (70-110)
[2022-05-09] MEDS: doxycycline 100 mg Tablet PO ×2 (08:17→17:56)
[2022-05-09] MEDS: ARIPiprazole 10 mg Tablet PO (08:17)
[2022-05-09] MEDS: lisinopril 10 mg Tablet PO (08:17)
[2022-05-09] MEDS: BuSPIRONE 10 mg Tablet PO ×3 (08:17→20:26)
[2022-05-09] MEDS: insulin lispro 100 unit/1 mL SUBCUT ×4 (08:17→20:47)
[2022-05-09] MEDS: ibuprofen 600 mg Tablet PO ×2 (10:13→20:27)
[2022-05-09] MEDS: OLANZapine 5 mg ODT PO ×3 (10:14→21:06)
[2022-05-09 12:46] LABS: Glucose Point of Care 365 mg/dL (70-110)
[2022-05-09 12:46] LABS: Glucose Point of Care 154 mg/dL (70-110)
[2022-05-09] MEDS: acetaminophen 325 mg Tablet 650 MG PO (12:56)
--- NOTE | 2022-05-09 17:37 | P.NPUPN_ITS ---
Subjective NPU Subjective: Patient presented today reporting that he is feeling steady improvement. This is noteworthy with his physical and psychiatric progress. Work with treatment team and family and identified that with the last situation with the aggression likely under the influence or off of his medication that is not feeling safe with him back home. He is agreeable to referral to [facility]. Plan for discharge first thing Thursday morning. Mental Status Exam MSE Comments: This is an obese white male in hospital gown with limited grooming and eye contact with poor dentition.? No abnormal movements except for mild psychomotor agitation.? Significant tattooing over his exposed skin including his stomach with statement 100% [place] tattoo on it.? Cooperative with exam in mild distress.? Speech was dysarthric but more normal rate and volume.? Mood described as better, affect congruent.? Thought process more organized.? Thought content: Patient denied suicidal and homicidal ideation, there were no delusions reported or noted, he did not report auditory or visual hallucinations.? Attention and concentration are improving and memory appears more reliable, but none were formally tested.? He is alert and oriented x3.? Insight and judgment are improving, impulse control appears improving. Vitals/I&O/Wt Last Vital Signs Temp 98.4 F 05/09/22 20:07 Pulse 96 05/09/22 20:07 Resp 18 05/09/22 20:07 BP 152/101 05/09/22 20:07 Pulse Ox 95 05/09/22 20:07 O2 Del Method 05/09/22 14:00 O2 Flow Rate 0 05/09/22 20:00 FiO2 35 05/01/22 11:00 Physical Exam Urinary Catheter Management: Rowe: Cath Placed During This Visit: yes, but has since been removed by the nurse Reason for Continuing Indwelling Catheter: Other Urinary Catheter Date of Insertion: 04/24/22 Urinary Catheter Time of Insertion: 20:30 Date Urinary Catheter Removed: 05/03/22 Time Urinary Catheter Discontinued: 22:38 Data NPU 05/05/22 08:15 05/06/22 18:24 A&P Assessment and plan (1) Psychosis: (2) Agitated depression: (3) Rhabdomyolysis: (4) URI with cough and congestion: (5) Decreased calculated GFR: (6) Diabetes mellitus, with long-term current use of insulin: (7) GERD (gastroesophageal reflux disease): (8) Essential hypertension: (9) Methamphetamine abuse: (10) Schizophrenia: (11) Substance abuse: (12) History of bacterial endocarditis: (13) Lacerations of multiple sites without complication: (14) Combative behavior: (15) Suicide attempt: (16) Obstructive sleep apnea: Plan This is a 52-year-old white male with a long history of depression,psychosis and addiction particularly methamphetamine which is often led to psychosis and agitation who presented to the emergency department having received reportedly had a suicide attempt and subsequently receiving ketamine which he has had a history of adverse response to which again led to him being intubated and placed on a 96-hour hold. He was extubated and finds himself with psychomotor agitation during the consult. 1.? Continue current medication.? Continue Abilify and BuSpar and consider Abilify injection. 2.? Continue every 15 minute checks for safety. 3. Encourage individual, group milieu therapy. 4. Encourage sober living treatment after discharge to the highest level of care to which he is willing to commit. 5. Work with treatment team for discharge to [facility] Thursday. Involuntary Hold Information 96 Hour Hold: 96 Hour Involuntary Admission: No Attestations NPU Medical Necessity Statement*: Inpatient hospitalization is medically necessary and the clinically appropriate intervention at this time. We will monitor medication to make changes as indicated. Likely length of stay 3 days. Coding Level of Care Code Acute Manager Night for [facility] Fwd Diagnoses Psychosis F29 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
[2022-05-09 17:41] LABS: Glucose Point of Care 262 mg/dL (70-110)
[2022-05-09 19:56] LABS: Glucose Point of Care 253 mg/dL (70-110)
[2022-05-09 20:07] VITALS: BP 152/101; PULSE 96; RESP 18; TEMP 36.9; O2SAT 95
[2022-05-09] MEDS: trazodone 50 mg Tablet OG-TUBE (20:26)
[2022-05-09] MEDS: haloperidol 5 mg Tablet PO (20:54)
[2022-05-10 06:00] VITALS: BP 127/83; PULSE 97; RESP 17; TEMP 36.7; O2SAT 97
[2022-05-10] MEDS: ibuprofen 600 mg Tablet PO (07:23)
[2022-05-10 08:08] LABS: Glucose Point of Care 242 mg/dL (70-110)
[2022-05-10] MEDS: doxycycline 100 mg Tablet PO ×2 (08:17→17:47)
[2022-05-10] MEDS: hyDROXYzine 25 mg Capsule 50 MG PO (08:17)
[2022-05-10] MEDS: ARIPiprazole 10 mg Tablet PO (08:17)
[2022-05-10] MEDS: BuSPIRONE 10 mg Tablet PO ×3 (08:17→20:39)
[2022-05-10] MEDS: lisinopril 10 mg Tablet PO (08:17)
[2022-05-10] MEDS: insulin lispro 100 unit/1 mL SUBCUT ×4 (08:52→20:41)
[2022-05-10] MEDS: OLANZapine 5 mg ODT PO (11:14)
--- NOTE | 2022-05-10 11:49 | W.PM.NPUPNS ---
Subjective NPU Subjective: Patient presented today reporting that he is feeling better. He had a plan to continue on to [place] as we had discussed. He reported that he was feeling better on the medication and discussed and agreed that Thursday morning we could discharge with follow-up in [place]. Mental Status Exam MSE Comments: This is an obese white male in hospital gown with limited grooming and eye contact with poor dentition.? No abnormal movements except for mild psychomotor agitation.? Significant tattooing over his exposed skin including his stomach with statement 100% [place] tattoo on it.? Cooperative with exam in mild distress.? Speech was dysarthric but more normal rate and volume.? Mood described as better, affect congruent.? Thought process more organized.? Thought content: Patient denied suicidal and homicidal ideation, there were no delusions reported or noted, he did not report auditory or visual hallucinations.? Attention and concentration are improving and memory appears more reliable, but none were formally tested.? He is alert and oriented x3.? Insight and judgment are improving, impulse control appears improving. Vitals/I&O/Wt Last Vital Signs Temp 98.0 F 05/10/22 06:00 Pulse 97 05/10/22 06:00 Resp 17 05/10/22 06:00 BP 127/83 05/10/22 06:00 Pulse Ox 97 05/10/22 06:00 O2 Del Method 05/09/22 14:00 O2 Flow Rate 0 05/09/22 20:00 FiO2 35 05/01/22 11:00 Physical Exam Urinary Catheter Management: Rowe: Cath Placed During This Visit: yes, but has since been removed by the nurse Reason for Continuing Indwelling Catheter: Other Urinary Catheter Date of Insertion: 04/24/22 Urinary Catheter Time of Insertion: 20:30 Date Urinary Catheter Removed: 05/03/22 Time Urinary Catheter Discontinued: 22:38 Data NPU 05/05/22 08:15 05/06/22 18:24 A&P Assessment and plan (1) Psychosis: (2) Agitated depression: (3) Rhabdomyolysis: (4) URI with cough and congestion: (5) Decreased calculated GFR: (6) Diabetes mellitus, with long-term current use of insulin: (7) GERD (gastroesophageal reflux disease): (8) Essential hypertension: (9) Methamphetamine abuse: (10) Schizophrenia: (11) Substance abuse: (12) History of bacterial endocarditis: (13) Lacerations of multiple sites without complication: (14) Combative behavior: (15) Suicide attempt: (16) Obstructive sleep apnea: Plan This is a 52-year-old white male with a long history of depression,psychosis and addiction particularly methamphetamine which is often led to psychosis and agitation who presented to the emergency department having received reportedly had a suicide attempt and subsequently receiving ketamine which he has had a history of adverse response to which again led to him being intubated and placed on a 96-hour hold. He was extubated and finds himself with psychomotor agitation during the consult. 1.? Continue current medication.? Continue Abilify and BuSpar and consider Abilify injection. 2.? Continue every 15 minute checks for safety. 3. Encourage individual, group milieu therapy. 4. Encourage sober living treatment after discharge to the highest level of care to which he is willing to commit. 5. Work with treatment team for discharge to Thursday. Involuntary Hold Information 96 Hour Hold: 96 Hour Involuntary Admission: No Attestations NPU Medical Necessity Statement*: Inpatient hospitalization is medically necessary and the clinically appropriate intervention at this time. We will monitor medication to make changes as indicated. Likely length of stay 2 days. Coding Level of Care Code Acute Network Programmer for [facility] Fwd Diagnoses Psychosis F29 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
[2022-05-10 12:18] LABS: Glucose Point of Care 305 mg/dL (70-110)
[2022-05-10] MEDS: haloperidol 5 mg Tablet PO (13:31)
[2022-05-10] MEDS: ARIPiprazole 10 mg Tablet 5 MG PO (13:50)
[2022-05-10 14:00] VITALS: RESP 17
[2022-05-10 17:35] LABS: Glucose Point of Care 255 mg/dL (70-110)
[2022-05-10 20:17] LABS: Glucose Point of Care 334 mg/dL (70-110)
[2022-05-10] MEDS: LORazepam 2 mg/mL INJ 1 mL IM (20:38)
[2022-05-10] MEDS: haloperidol inj 5 mg/mL INJ 1 mL IM (20:38)
[2022-05-10] MEDS: diphenhydrAMINE 50 mg/mL SDV 1mL IM (20:39)
[2022-05-10] MEDS: trazodone 50 mg Tablet OG-TUBE (20:39)
[2022-05-10 21:27] VITALS: BP 130/91; PULSE 106; RESP 18; TEMP 36.5; O2SAT 96
[2022-05-11 06:00] VITALS: RESP 20; BMI 35.6
[2022-05-11 08:15] LABS: Glucose Point of Care 226 mg/dL (70-110)
[2022-05-11] MEDS: BuSPIRONE 10 mg Tablet PO ×2 (08:39→14:34)
[2022-05-11] MEDS: doxycycline 100 mg Tablet PO ×2 (08:39→17:16)
[2022-05-11] MEDS: lisinopril 10 mg Tablet PO (08:40)
[2022-05-11] MEDS: ARIPiprazole 10 mg Tablet 15 MG PO (08:40)
[2022-05-11] MEDS: insulin lispro 100 unit/1 mL SUBCUT ×3 (08:41→17:16)
[2022-05-11 12:17] LABS: Glucose Point of Care 308 mg/dL (70-110)
[2022-05-11] MEDS: ibuprofen 600 mg Tablet PO (12:21)
--- NOTE | 2022-05-11 12:37 | W.PM.NPUPNS ---
Subjective NPU Subjective: Today reporting that he is feeling better each day. He continues to look better while ambulating. We discussed the continued plan for discharge tomorrow to follow-up in [place] including [facility]. He reports he is excited about this plan especially with his son living in [place]. His only concern is making sure that he is able to get his ID as well as his stuff meeting close etc. on his way up there. We agreed we would work with the social work team on managing those logistics in the morning. Mental Status Exam MSE Comments: This is an obese white male in hospital gown with limited grooming and eye contact with poor dentition.? No abnormal movements except for mild psychomotor agitation.? Significant tattooing over his exposed skin including his stomach with statement 100% [place] tattoo on it.? Cooperative with exam in no acute distress.? Speech was dysarthric but more normal rate and volume.? Mood described as better, affect congruent.? Thought process more organized.? Thought content: Patient denied suicidal and homicidal ideation, there were no delusions reported or noted, he did not report auditory or visual hallucinations.? Attention and concentration are improving and memory appears more reliable, but none were formally tested.? He is alert and oriented x3.? Insight and judgment are improving, impulse control appears improving. Vitals/I&O/Wt Last Vital Signs Temp 97.7 F 05/10/22 21:27 Pulse 106 H 05/10/22 21:27 Resp 20 H 05/11/22 06:00 BP 130/91 05/10/22 21:27 Pulse Ox 96 05/10/22 21:27 O2 Del Method 05/09/22 14:00 O2 Flow Rate 0 05/10/22 20:00 FiO2 35 05/01/22 11:00 Weight last 48 hrs Weight 106.141 kg Physical Exam Urinary Catheter Management: Rowe: Cath Placed During This Visit: yes, but has since been removed by the nurse Reason for Continuing Indwelling Catheter: Other Urinary Catheter Date of Insertion: 04/24/22 Urinary Catheter Time of Insertion: 20:30 Date Urinary Catheter Removed: 05/03/22 Time Urinary Catheter Discontinued: 22:38 Data NPU 05/05/22 08:15 05/06/22 18:24 A&P Assessment and plan (1) Psychosis: (2) Agitated depression: (3) Rhabdomyolysis: (4) URI with cough and congestion: (5) Decreased calculated GFR: (6) Diabetes mellitus, with long-term current use of insulin: (7) GERD (gastroesophageal reflux disease): (8) Essential hypertension: (9) Methamphetamine abuse: (10) Schizophrenia: (11) Substance abuse: (12) History of bacterial endocarditis: (13) Lacerations of multiple sites without complication: (14) Combative behavior: (15) Suicide attempt: (16) Obstructive sleep apnea: Plan This is a 52-year-old white male with a long history of depression,psychosis and addiction particularly methamphetamine which is often led to psychosis and agitation who presented to the emergency department having received reportedly had a suicide attempt and subsequently receiving ketamine which he has had a history of adverse response to which again led to him being intubated and placed on a 96-hour hold. He was extubated and finds himself with psychomotor agitation during the consult. 1.? Continue current medication.? Continue Abilify and BuSpar and consider Abilify injection. Abilify was increased to 15 mg p.o. every morning 2.? Continue every 15 minute checks for safety. 3. Encourage individual, group milieu therapy. 4. Encourage sober living treatment after discharge to the highest level of care to which he is willing to commit. 5. Work with treatment team for discharge to [place] tomorrow. Involuntary Hold Information 96 Hour Hold: 96 Hour Involuntary Admission: No Attestations NPU Medical Necessity Statement*: Inpatient hospitalization is medically necessary and the clinically appropriate intervention at this time. We will monitor medication to make changes as indicated. Likely length of stay 1 day. Coding Level of Care Code Acute Applications Trainer for g Fwd Diagnoses Psychosis F29 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
[2022-05-11 14:00] VITALS: BP 138/98; PULSE 112; RESP 18; O2SAT 96
[2022-05-11] MEDS: acetaminophen 325 mg Tablet 650 MG PO (16:20)
[2022-05-11] MEDS: haloperidol inj 5 mg/mL INJ 1 mL IM (17:05)
[2022-05-11] MEDS: diphenhydrAMINE 50 mg/mL SDV 1mL IM (17:05)
[2022-05-11] MEDS: LORazepam 2 mg/mL INJ 1 mL IM (17:05)
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
[2022-05-11 17:11] LABS: Glucose Point of Care 296 mg/dL (70-110)
[2022-05-11 19:55] VITALS: RESP 16
[2022-05-12] MEDS: hyDROXYzine 25 mg Capsule 50 MG PO (03:13)
[2022-05-12] MEDS: haloperidol 5 mg Tablet PO (03:14)
[2022-05-12 03:15] LABS: Glucose Point of Care 244 mg/dL (70-110)
[2022-05-12 05:55] VITALS: BP 143/85; PULSE 121; RESP 18; TEMP 36.7; O2SAT 97
[2022-05-12] MEDS: doxycycline 100 mg Tablet PO (08:22)
[2022-05-12] MEDS: ARIPiprazole 10 mg Tablet 15 MG PO (08:22)
[2022-05-12] MEDS: lisinopril 10 mg Tablet PO (08:22)
[2022-05-12] MEDS: BuSPIRONE 10 mg Tablet PO (08:22)
[2022-05-12] MEDS: insulin lispro 100 unit/1 mL SUBCUT (08:23)
[2022-05-12 08:30] LABS: Glucose Point of Care 252 mg/dL (70-110)
--- NOTE | 2022-05-12 08:57 | P.NPUDS_ITS ---
Diagnoses at Discharge Discharge Diagnosis (1) Psychosis: Status: Inactive (2) Agitated depression: Status: Inactive (3) Rhabdomyolysis: Status: Resolved (4) URI with cough and congestion: Status: Inactive (5) Decreased calculated GFR: Status: Inactive (6) Diabetes mellitus, with long-term current use of insulin: Status: Acute (7) GERD (gastroesophageal reflux disease): Status: Acute (8) Essential hypertension: Status: Acute (9) Methamphetamine abuse: Status: Inactive (10) Schizophrenia: Status: Acute (11) Substance abuse: Status: Acute Permanent problem details: Methamphetamine and marijauna (12) History of bacterial endocarditis: Status: Resolved (13) Lacerations of multiple sites without complication: Status: Resolved (14) Combative behavior: Status: Resolved (15) Suicide attempt: Status: Acute (16) Obstructive sleep apnea: Status: Acute Reason for Visit Reason for Visit: SI Brief History: Shree Hickman is a 52 year old male who presented to the emergency department with the following report: Chief Complaint: Overdose Stated Complaint: SI Time Seen by Provider: 04/24/22 13:21 Source: EMS Mode of arrival: EMS History of Present Illness: 52-year-old male presents to the ER via EMS. He is not able to provide any history. Per EMS crew's been on five 6-day baum of heroin and methamphetamine. I did seen this patient in July of this year under similar circumstances. At that time and as well today he received ketamine in the field which caused him to hallucinate but did not really have any significant sedative effect. On arrival here he was [id number] hallucinating and screaming got worse with ketamine. On arrival here would recognize him from his previous history did not give any further ketamine initially seen by midlevel given Ativan however was not very effective he was given a large dose of 4 mg which did effectively sedate him and kept him from further hallucinating or acting out. He was immediately hard restrained as he got here because of his erratic behavior and his hallucinations and screaming out he was at great risk to himself and others. Previously the patient had gone into rhabdomyolysis in July onto the similar conditions. Onset (ago): day(s) Intent: suicide attempt Context: Intentional Overdose: drug/ETOH problems Associated symptoms: hallucinations Treatments Prior to Arrival: other (Ketamine) He was admitted to the ICU for definitive treatment of those issues and was intubated and just recently this morning extubated. He presents quite confused and writhing around the bed, flopping his legs over the arm rests and seeming somewhat delirious. He did eventually remember this residential mortgage underwriter and we discussed the plan for him to come down to the interview once he had cleared medically. He endorsed that he understood. We talked about the possibility of adjusting his medications but otherwise he was unclear from a history obtaining standpoint. An excerpt of a past note is included for historical purposes. Per his 07/08/2021 [facility] inpatient psychiatric evaluation: History of Present Illness Shree Hickman is a 51 year old male who presented to the emergency department with the following report: Chief Complaint: ER Hold Stated Complaint: MHE Time Seen by Provider: 07/05/21 13:49 History of Present Illness: 51-year-old male presents to the emergency room in the custody of police. He is extremely agitated physically and verbally aggressive. Took multiple officers to continually redirect him and eventually were able to get into her room. There he began becoming combative agitated making threatening gestures and attempting to tear equipment off of the wall. MD complaint: altered mental status Onset (ago): hour(s) History of same: Yes Relieving factors: none Exacerbating factors: none He received ketamine in the emergency department and then had what was apparently a paradoxical reaction and ultimately was intubated for safety. He was transferred to the ICU where he was maintained on sedative medications. He was extubated likely disoriented. A psychiatric consult was requested to determine safety to transfer to the NPU. Patient was initially requesting food and being somewhat erratic. He was in four-point restraints and pulling against those. Ultimately calmed down and agreed that he would be cooperative. He is known to this residential mortgage underwriter and he apologized and even asked for a hug. He does not recall why he is here but he did report he was not taking his medication that he has occasionally been using drugs and he would be okay with being transferred to the neuropsychiatric unit on a 96-hour hold to explore medications etc. He reports he has not taken his medication for some time and denied any significant drug use. UDS was positive for cannabis. We agreed that once he was maintained out of restraints for a period of time he be transferred down to the neuropsychiatric unit for definitive treatment of his issues. Patient is a fairly poor historian but does report that he lives with family and that he was upset with letter please bring him in the other day. We reviewed his most recent psychiatric evaluation with this residential mortgage underwriter which was back in April and he did endorse that it was an accurate representation of his history. An excerpt is included below. Per his 04/16/2021 [facility] inpatient psychiatric evaluation: History of Present Illness Shree Hickman is a 51 year old male who presented to the emergency department with the following report: Chief Complaint: Psychiatric Symptoms Stated Complaint: MHE Time Seen by Provider: 04/15/21 16:41 History of Present Illness: HPI Narrative: 51-year-old male presents to the emergency room with complaint of auditory and visual hallucinations encouraging him to harm others. He denies use of alcohol or drugs. Is a history of diabetes mellitus hypertension he has previously been admitted 10 PM for similar complaints. He denies actually doing anything to harm himself or others at this point. MD complaint: altered mental status Onset (ago): hour(s) Duration: constant History of same: Yes Relieving factors: medication Exacerbating factors: none Context: not taking psychiatric medications Associated psychiatric symptoms: homicidal ideation, racing thoughts, auditory hallucinations and visual hallucinations Associated symptoms: Deny suicidal ideation Treatments prior to arrival: none. He was admitted to the neuropsychiatric unit for definitive treatment of those issues. Patient presents today for reevaluation and not a great historian due to his endorsed level frustration and feelings of despair. He continued to do it but he is not happy about his life and on multiple occasions reporting a desire to go out and find a place where the most people are to hurt, him and as many people as possible including himself. He reports that he is so tired of people and he does not care who gets her reporting he wants to go to the busiest place, a school a shopping area and to start hurting people because he is tired of palpable I treated him and he does mostly into the soon as possible. He cannot really articulate what is causing him being here. He reports he hasn't been taking his psychiatric medications he hasn't been taking his medical medications and insulin. We discussed the risk-benefit alternatives of possibly getting him on Invega or some other medication that has a shot version and he understood and agreed proceed as is documented in his note but in general he just said he did not care fine because he just wants to be if things continue like this. Per his [facility]: History of Present Illness Shree Hickman is a 51 year old male who presented to the emergency department and was admitted to the [facility] unit with the following report: Shree Hickman is a 51 year old male who presented to the emergency department I believe with vomiting and diarrhea. Patient currently has received some Ativan and Dilaudid and goes from sleeping to waking with some agitation. He has been pulling at his NG, and IVs. Further history I cannot get from the patient currently. On review of records it is apparent he has had discitis and perhaps a decompression in the past. This occurred at [facility] in [place] after a transfer from our emergency department October 19, and again on November 04. Records will be requested so I can determine the exact hospital course. This is pertinent secondary to L5-S1 discitis seen on CT abdomen and pelvis. From my understanding when patient arrived he really was not complaining of any back pain, paresthesias or other lower extremity symptoms. In his current state, an MRI could not be entertained. The emergency department physician has alerted me that Dr. Ruiz has been notified of the case and will consult. I cannot confirm at this time if he got his blood culture through the emergency department prior to antibiotic administration. Psychiatric consult: Psychiatric consult was requested due to his significant psychiatric comorbidity . Patient presents today reporting that sometime ago he just stopped taking his medication a few months ago due to challenges he had that were fairly vague. He reports that in general he been doing well but he does acknowledge that he does better he is on his medication. He gives no rational reason why he had discontinued the medication and agreed that I could review his records and restart what he was on last as he could not recall himself. We discussed the risk-benefit alternatives of restarting his medication and appropriate dose and he understood agreed proceed as is documented in this note. He has a history of addiction with psychosis likely related to methamphetamine versus organic psychosis which is never been teased out. That he said multiple treatment has been with antidepressants and the only antipsychotic seem to be in proximity to his psychotic presentations suggesting the possibility that this is more related to drug-induced psychosis when the psychosis involved. Per his 07/12/2020 [facility] inpatient psychiatric evaluation: History of Present Illness Shree Hickman is a 50 year old male with past psychiatric history of depressive disorder, multiple past episodes of behavioral disturbances with suicidal ideation and homicidal ideation currently presenting with homicidal ideation toward his nephew who currently lives with him and his dad's house. Aneesh woody reports recently leaving correction 2 weeks ago and states that he has experienced worsening irritability, depression in the context of multiple stressors to include strained relationship with his nephew that lives in the same house. Patient continues to report depressive symptoms, low mood, decreased motivation and interest. He denies any current suicidal ideation. Patient does report stating that he has thoughts about hurting his nephew but does not provide specific details. Patient was placed on a 96-hour hold by police for this complaint of homicidal ideation. Patient does not provide details with regards to history of physical violence towards other individuals and communicates lack of concern about potential consequences of hurting his nephew. Patient does have longstanding history of substance abuse to include methamphetamine abuse but currently has UDS only positive for THC which the patient states he used a couple weeks ago after getting out of correction. Patient currently denies any perceptual disturbances, denies any hallucinations, denies any delusions. Patient has a past history of schizophrenia although he does not appear to demonstrate any disorganization of his thoughts, speech or behavior. Unclear per chart review with regards to influence of substances or temporal relationship of previous signs or symptoms with substance use. Patient reports occasional anxiety symptoms related ongoing stressors, denies any recent panic attacks. Patient is noncompliant not only with psychiatric medication but also with medication for his diabetes with past reported blood sugar in the 400s. Patient states that he has taken diabetes medication since his last hospitalization but is not specific with regards to his compliance and ongoing monitoring in the outpatient setting. Per above, patient also noncompliant with psychiatric medication as well as psychiatric follow-up. Patient reports last being hospitalized for psychiatric reasons at this facility in December 2019 at which time Abilify was started but patient states he did not take this medication after discharge. Patient reports living with his father and states that his nephew and nephew's also live in the same house causing significant strained relationship. Hospital Course Hospital Course He slowly acclimated to the individual, group and milieu therapies provided. He started out in the ICU secondary to an episode where he reportedly was threatening to kill his family and was reportedly threatening to burn down dad's house and had gasoline present when [facility] arrived. He had not been on medications and we restarted Abilify titrating to 15 mg and Buspar now at 10 mg po tid. He tolerated these doses and showed steady improvement during his stay. He was able to contract for safety outside hospital prior to discharge. He accepted referral to services and emergent housing in [place] in part sec ondary to his son being up there. During the hospitalization, patient had routine laboratory studies which were within normal limits except for few outliers. Additionally there was a general medical evaluation which was also within normal limits and revealed no new acute processes. Any acute issues prior to transfer to NPU were managed by the Hospitalists. Discharge Summary: At the time of discharge, lethality was denied and psychosis was resolving. Mood and anxiety were well managed. Patient endorsed a plan to follow-up with the aftercare recommendations of the treatment team. Patient was evaluated and deemed to be absent credible lethality, and had achieved the maximum benefit from an inpatient hospitalization, so was discharged. Involuntary Hold Information 96 Hour Hold: 96 Hour Involuntary Admission: No Mental Status Exam MSE Comments: This is an obese white male in hospital gown with limited grooming and eye contact with poor dentition.? No abnormal movements except for mild psychomotor agitation.? Significant tattooing over his exposed skin including his stomach with statement 100% [place] tattoo on it.? Cooperative with exam in no acute distress.? Speech was dysarthric but more normal rate and volume.? Mood described as pretty good, affect congruent.? Thought process more organized.? Thought content: Patient denied suicidal and homicidal ideation, there were no delusions reported or noted, he did not report auditory or visual hallucinations.? Attention and concentration are improving and memory appears more reliable, but none were formally tested.? He is alert and oriented x3.? Insight and judgment are improving, impulse control appears improving. Physical Exam Urinary Catheter Management: Rowe: Cath Placed During This Visit: yes, but has since been removed by the nurse Reason for Continuing Indwelling Catheter: Other Urinary Catheter Date of Insertion: 04/24/22 Urinary Catheter Time of Insertion: 20:30 Date Urinary Catheter Removed: 05/03/22 Time Urinary Catheter Discontinued: 22:38 Discharge Data Studies Completed and Pending: Completed Studies During Hospitalization Category Date Time Status CT chest abdomen pelvis [[place] [address]/[id number] Cat Scan 04/25/22 08:43 Completed ] Routine CT neck wo con [id number] 490 Routine Cat Scan 04/25/22 08:43 Completed CXRP [XR chest 1V portable [id number]] A M LABS Exams 04/27/22 04:00 Completed CXRP [XR chest 1V portable [id number]] R outine Exams 04/29/22 15:59 Completed CXRP [XR chest 1V portable [id number]] S tat Exams 04/30/22 09:31 Completed XR KUB portable 7 [id number] Routine Exams 05/01/22 20:03 Completed XR abdomen 1V* 74 [id number] Routine Exams 04/30/22 09:31 Completed XR chest 1V randy ble [id number] Routine Exams 04/25/22 00:42 Completed XR chest 1V randy ble [id number] Routine Exams 04/26/22 07:00 Completed XR chest 1V randy ble [id number] Stat Exams 04/24/22 15:45 Completed XR chest 1V randy ble [id number] Stat Exams 04/24/22 20:19 Completed CV. echo complete * [id number] Routine Ultrasound 04/29/22 16:03 Completed ARSEN [CV. echo tra nsesophageal [id number] ] Routine Ultrasound 04/30/22 16:00 Completed Radiology Impressions Chest/Abdomen/Pelvis CT 04/25/22 08:43 IMPRESSION: 1. Dense areas of consolidation involving the lower lobes bilaterally. Most significant atelectasis LEFT lower lobe. 2. No ascites or adenopathy. 3. No ischemic changes. 4. Mild bilateral perinephric stranding. 5. Endotracheal nasogastric tubes in good position. Neck CT 04/25/22 08:43 IMPRESSION: 1. Limited evaluation of the neck structures without IV contrast. 2. Endotracheal tube in good position. 3. Nasogastric tube is noted in the upper esophagus. 4. Cannot exclude small amount of edema at the tongue base and hypopharynx. No midline shift. 5. Incompletely visualized consolidations, probably atelectasis superior segments of the lower lobes. Abdomen X-Ray 04/30/22 09:31 IMPRESSION: No acute findings. Chest X-Ray 04/30/22 09:31 IMPRESSION: Improved lung aeration. KUB X-Ray 05/01/22 20:03 IMPRESSION: No acute findings. Laboratory Results WBC 5.9 10^3/uL (4.0- 10.0) 05/05/22 08:15 Corrected WBC Cancelled 05/05/22 06:10 RBC 4.22 10^6/uL (4.1 -5.3) 05/05/22 08:15 Hgb 12.8 g/dL (11.7-1 6.6) 05/05/22 08:15 Hct 42.0 % (42.0-52.0 ) 05/05/22 08:15 MCV 99.5 fl (80-94) H D 05/05/22 08:15 MCH 30.3 pg (28.0-34. 0) 05/05/22 08:15 MCHC 30.5 g/dL (30.0-3 6.0) D 05/05/22 08:15 RDW 12.5 % (12.1-15.1 ) 05/05/22 08:15 Plt Count 48 10^3/cmm (130- 400) L D 05/05/22 08:15 MPV 11.5 fL (7.4-10.4 ) H 05/05/22 08:15 Gran % Cancelled 05/05/22 06:10 Neut % (Auto) Cancelled 05/05/22 06:10 Lymph % (Auto) 22.5 % 05/05/22 08:15 [place] % (Auto) 7.6 % 05/05/22 08:15 Eos % (Auto) Cancelled 05/05/22 06:10 Baso % (Auto) Cancelled 05/05/22 06:10 Neut # (Auto) Cancelled 05/05/22 06:10 Lymph # (Auto) 1.3 10^3/uL (0.8- 4.8) 05/05/22 08:15 [place] # (Auto) 0.5 10^3/uL (0.2- 0.9) 05/05/22 08:15 Eos # (Auto) Cancelled 05/05/22 06:10 Baso # (Auto) Cancelled 05/05/22 06:10 Absolute Gran (aut o) Cancelled 05/05/22 06:10 Nucleated RBC % (a uto) Cancelled 05/05/22 06:10 Nucleated RBCs # Cancelled 05/05/22 06:10 PT 15.50 SECONDS (12 .1-14.9) H 04/26/22 04:20 INR 1.19 (0.8-1.2) 04/26/22 04:20 D-Dimer 5.28 ug/mIFEU (0- 0.59) H 05/02/22 04:00 Specimen Type Arterial 04/28/22 04:00 Sample Site Radial, right 04/28/22 04:00 ABG pH 7.31 (7.35-7.45) L 04/28/22 04:00 ABG pCO2 39.6 mmHg (35-45) 04/28/22 04:00 ABG pO2 88.0 mmHg (80.0-1 00.0) 04/28/22 04:00 ABG HCO3 20.0 mmol/L (22-2 6) L 04/28/22 04:00 ABG O2 Saturation 98.4 04/24/22 20:14 ABG Base Excess -5.8 mmol/L (-2.0 -2.0) L 04/28/22 04:00 Evan Test Pos 04/28/22 04:00 A-a O2 Gradient 15.6 mmHg (5-10) H 04/24/22 20:14 Hematocrit 35.1 % (42-52) L 04/28/22 04:00 Hgb O2 Saturation 97.9 % (95-100) 04/24/22 20:14 Carboxyhemoglobin < 0.0 %THgb (0.4- 20.1) L 04/24/22 20:14 Methemoglobin 0.9 % (0.4-1.5) 04/24/22 20:14 Total Hemoglobin 14.1 g/dL (14-18) 04/24/22 20:14 Sodium 139.0 mmol/L (131 -143) 04/24/22 20:14 Potassium 4.3 mmol/L (3.5-5 .0) 04/24/22 20:14 Glucose 233.0 mg/dL (70-1 15) H 04/24/22 20:14 Ionized Calcium 1.1 mmol/L (1.1-1 .4) 04/24/22 20:14 Respiration Rate 16.0 % 04/26/22 01:00 O2 Delivery Device Vent 04/28/22 04:00 O2 Liters/Min 0.5 % 04/28/22 04:00 Vent Mode Vc/ac 04/26/22 01:00 FiO2 40.0 % 04/28/22 04:00 Tidal Volume 0.50 04/27/22 04:00 PEEP 5.0 cmH20 04/27/22 04:00 Specimen Drawn By Deyanira 04/26/22 01:00 Zoology Professor ID estefanía 04/28/22 04:00 Sodium 134 mmol/L (136-1 45) L 05/05/22 06:10 Potassium 3.5 mmol/L (3.5-5 .1) 05/05/22 06:10 Chloride 98 mmol/L (98-107 ) 05/05/22 06:10 Carbon Dioxide 21 mmol/L (22-29) L 05/05/22 06:10 Anion Gap 18.5 (5-19) 05/05/22 06:10 BUN 11 mg/dL (6-20) 05/05/22 06:10 Creatinine 0.5 mg/dL (0.7-1. 2) L 05/05/22 06:10 GFR Calculation 176.0 mL/min (90- 130) H 05/05/22 06:10 Glucose 411 mg/dL (65-115 ) H 05/06/22 18:24 POC Glucose 252 mg/dL (70-110 ) H 05/12/22 08:16 Serum Osmolality 327 mOsm/kg (278- 305) H 04/25/22 03:35 Calculated Osmolal ity 286 mOsm/kg (285- 295) 05/05/22 06:10 Lactic Acid 1.8 mmol/L (0.5-2 .2) 04/24/22 20:30 Calcium 9.0 mg/dL (8.5-10 .5) 05/05/22 06:10 Phosphorus 2.4 mg/dL (2.5-4. 5) L 04/26/22 04:20 Magnesium 1.6 mg/dL (1.7-2. 3) L 05/05/22 06:10 Total Bilirubin 0.4 mg/dL (0.15-1 .2) 05/03/22 04:22 AST 13 U/L (0-40) 05/03/22 04:22 ALT 14 U/L (0-41) 05/03/22 04:22 Alkaline Phosphata se 70 U/L (40-130) 05/03/22 04:22 Creatine Kinase 473 U/L (39-308) H* D 04/28/22 03:14 Troponin T Baselin e 14 ng/L (0-15) 05/02/22 04:00 Troponin T 120 Min blake 13.81 ng/L (0-15) 05/02/22 06:02 Delta Troponin T -0.19 ABS# (0-10) L 05/02/22 06:02 Troponin T Hi Sens 6Hr 12.44 ng/L (0-15) 05/02/22 10:20 Troponin T Hi Sens 6Hr Delta -1.56 ng/L (0-12) L 05/02/22 10:20 C-Reactive Protein 58.0 mg/L (0.0-4. 9) H 05/05/22 06:10 NT-Pro-B Natriuret Pep 716 pg/mL (0-125) H 05/05/22 06:10 Total Protein 6.4 g/dL (6.6-8.7 ) L 05/03/22 04:22 Albumin 2.9 g/dL (3.5-5.2 ) L 05/03/22 04:22 Globulin 3.5 g/dL (1.3-4.6 ) 05/03/22 04:22 Procalcitonin 0.06 ng/mL (0-0.5 ) 05/05/22 06:10 Urine Color Yellow (Yellow) 04/24/22 22:50 Urine Appearance Clear (CLEAR) 04/24/22 22:50 Urine pH 5 (5-7) 04/24/22 22:50 Ur Specific Gravit y 1.025 (1.005-1.0 30) 04/24/22 22:50 Urine Protein 1+ (Negative) H 04/24/22 22:50 Urine Glucose (UA) 1+ (Normal) H 04/24/22 22:50 Urine Ketones 2+ (Negative) H 04/24/22 22:50 Urine Blood Neg (Negative) 04/24/22 22:50 Urine Nitrate Negative (Negati ve) 04/24/22 22:50 Urine Bilirubin Neg (Negative) 04/24/22 22:50 Urine Urobilinogen Norm mg/dL (Negat jeannette) 04/24/22 22:50 Ur Leukocyte Sarah ase Negative (Negati ve) 04/24/22 22:50 Urine RBC 0-4 /hpf (0-2) H 04/24/22 16:50 Urine WBC None /hpf (0-5) 04/24/22 16:50 Ur Squamous Epith Cells Rare /hpf (0-5) 04/24/22 16:50 Amorphous Sediment 2+ /hpf 04/24/22 16:50 Urine Bacteria Trace /hpf (NONE) 04/24/22 16:50 Urine Mucus 2+ /hpf 04/24/22 16:50 Nasal Influ A H1 2 009 PCR Not detected (NO T DETECT) 05/01/22 14:35 Vancomycin Trough 9.1 ug/mL (10-15) L 05/03/22 08:18 Salicylates < 0.3 mg/dL (3-10 ) L 04/24/22 14:25 Urine Opiates Scre en Negative ng/mL (N egative) 04/24/22 16:50 Acetaminophen < 5.0 ug/mL (10-3 0) L 04/24/22 14:25 Ur Barbiturates Sc reen Negative ng/mL (N egative) 04/24/22 16:50 Ur Phencyclidine S crn Negative ng/mL (N egative) 04/24/22 16:50 Ur Amphetamines Sc reen Positive ng/mL (N egative) H 04/24/22 16:50 U Benzodiazepines Scrn Positive ng/mL (N egative) H 04/24/22 16:50 Urine Cocaine Scre en Negative ng/mL (N egative) 04/24/22 16:50 U Marijuana (THC) Screen Positive ng/mL (N egative) H 04/24/22 16:50 Ethylene Glycol <10.0 mg/L () 04/24/22 14:25 Ethyl Alcohol 82 mg/dL (0-10) H 04/24/22 14:25 Serum Ketones Negative (Negati ve) 04/24/22 20:30 Adenovirus (PCR) Not detected (NO T DETECT) 05/01/22 14:35 C. pneumoniae DNA (PCR) Not detected (NO T DETECT) 05/01/22 14:35 Coronavirus 229E ( PCR) Not detected (NO T DETECT) 05/01/22 14:35 Human Metapneumovi r PCR Not detected (NO T DETECT) 05/01/22 14:35 Influenza A (H1) P CR Not detected (NO T DETECT) 05/01/22 14:35 Influenza A (H3) P CR Not detected (NO T DETECT) 05/01/22 14:35 Influenza Type A A g negative (Negati ve) 04/24/22 17:45 Influenza Type A ( PCR) Not detected (NO T DETECT) 05/01/22 14:35 Influenza Type B A g negative (Negati ve) 04/24/22 17:45 Influenza Type B ( PCR) Not detected (NO T DETECT) 05/01/22 14:35 M. pneumoniae (PCR ) Not detected (NO T DETECT) 05/01/22 14:35 Parainfluenza 1 (P CR) Not detected (NO T DETECT) 05/01/22 14:35 Parainfluenza 2 (P CR) Not detected (NO T DETECT) 05/01/22 14:35 Parainfluenza 3 (P CR) Not detected (NO T DETECT) 05/01/22 14:35 Parainfluenza 4 (P CR) Not detected (NO T DETECT) 05/01/22 14:35 RSV Type A (PCR) Not detected (NO T DETECT) 05/01/22 14:35 RSV Type B (PCR) Not detected (NO T DETECT) 05/01/22 14:35 Entero/Rhino (PCR) Not detected (NO T DETECT) 05/01/22 14:35 SARS-CoV-2 (PCR) Not detected (NO T DETECT) 05/01/22 14:35 Vitals: Last Vital Signs Temp 98.1 F 05/12/22 09:07 Pulse 121 H 05/12/22 09:07 Resp 18 05/12/22 09:07 BP 143/85 05/12/22 09:07 Pulse Ox 97 05/12/22 09:07 O2 Del Method 05/09/22 14:00 O2 Flow Rate 0 05/11/22 20:00 FiO2 35 05/01/22 11:00 Discharge Plan Discharge Patient Disposition: Home Condition: Stable Prescriptions: New aripiprazole 15 mg tablet 15 mg PO DAILY 30 Days Qty: 30 1RF buspirone 10 mg Tablet 10 mg PO TID 30 Days Qty: 90 1RF Discharge Orders: Discharge Order (Routine); Ordered 05/12/22 Ordered By: Sampson Domingo Referrals: [facility] [Other] - 05/14/22 8:30 am (Initial assessment. Be there 30 minutes early for paperwork) Dr Rojas [Other] - 05/29/22 10:00 am Nba Rascon MD [Primary Care Provider] - Discharge Diet: Regular Discharge Activity: Resume usual activity Patient Instructions: Alcohol Abuse, Buspirone (By mouth), Aripiprazole (By mouth), Schizophrenia (DC), Suicide Prevention (DC), Opioid Safety Discharge Attestations NPU Time Spent in Discharge Care*: less than 30 min Specific Discharge Activities: Specific discharge activities: educating patient, discussing with case management social worker/social workers/dc planners, documenting/other paperwork and evaluating patient/reviewing data Status at Discharge: Cognitive status at discharge: cognitively intact , Behavioral status at discharge: cooperative , Coding Level of Care Code Acute Chg FW DC note Diagnoses Psychosis F29 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
[2022-05-12 09:07] VITALS: BP 143/85; PULSE 121; RESP 18; TEMP 36.7; O2SAT 97
== END 2022-05-12 09:20 | disposition home or self-care (01) | DRG 917 ==
LOC: ER 18:09 → ICU 19:00 → MEDSURG 05-05 06:15 → NP 05-05 15:17
PROVIDERS: Internal Medicine; Psychiatry & Neurology Psychiatry; Registered Nurse; Student in an Organized Health Care Education/Training Program; Admitting Provider Internal Medicine; Emergency Provider Family Medicine; PCP Family Medicine Adult Medicine; Visit Provider Family Medicine
DX: T52.0X2A Toxic effect of petroleum products, intentional self-harm, initial encounter (principal); G92.8 Other toxic encephalopathy; J69.0 Pneumonitis due to inhalation of food and vomit; M62.82 Rhabdomyolysis; F15.13 Other stimulant abuse with withdrawal; F10.139 Alcohol abuse with withdrawal, unspecified; E87.20 Acidosis, unspecified; T43.622A Poisoning by amphetamines, intentional self-harm, initial encounter; T51.0X2A Toxic effect of ethanol, intentional self-harm, initial encounter; F20.9 Schizophrenia, unspecified; E11.42 Type 2 diabetes mellitus with diabetic polyneuropathy; K21.9 Gastro-esophageal reflux disease without esophagitis; I10 Essential (primary) hypertension; F10.129 Alcohol abuse with intoxication, unspecified; F12.13 Cannabis abuse with withdrawal; Y90.4 Blood alcohol level of 80-99 mg/100 ml; G47.33 Obstructive sleep apnea (adult) (pediatric); S91.312A Laceration without foreign body, left foot, initial encounter; S91.311A Laceration without foreign body, right foot, initial encounter; X58.XXXA Exposure to other specified factors, initial encounter; R45.850 Homicidal ideations; Z86.19 Personal history of other infectious and parasitic diseases; Z95.3 Presence of xenogenic heart valve; E78.5 Hyperlipidemia, unspecified; I25.10 Atherosclerotic heart disease of native coronary artery without angina pectoris; E66.01 Morbid (severe) obesity due to excess calories; Z68.35 Body mass index [BMI] 35.0-35.9, adult; M51.37 Other intervertebral disc degeneration, lumbosacral region; Z86.14 Personal history of Methicillin resistant Staphylococcus aureus infection; Z59.00 Homelessness unspecified
CPT/HCPCS: 36415; 36416; 36600; 51702; 70490; 71045; 71250; 74018; 74176; 80048; 80051; 80053; 80202; 80306; 80307; 81001; 81003; 82009; 82330; 82550; 82693; 82803; 82805; 82947; 82962; 83605; 83735; 83880; 83930; 84100; 84145; 84484; 85025; 85378; 85610; 86140; 87040; 87070; 87077; 87186; 87205; 87486; 87581; 87633; 87804; 90471; 90686; 90732; 92507; 92523; 92526; 92610; 93005; 93306; 93312; 93320; 93325; 94002; 94003; 94799; 96365; 96372; 96375; 97110; 97116; 97150; 97161; 97165; 97166; 97530; 97535; 99285; A4570; C9113; J0131; J0330; J1200; J1630; J1644; J1650; J1815; J1940; J2060; J2185; J2250; J2270; J2405; J2543; J2550; J2704; J2765; J3010; J3370; J3475; J3480; J3486; J3490; J7030; J7042; J7050

== ENCOUNTER 2022-08-23 03:50 | Inpatient (IN) | payer BC, SELFPAY ==
[2022-08-23] VITALS (27 sets, daily range): BP systolic 80–142; BP diastolic 50–73; PULSE 72–117; RESP 15–98; TEMP 36.1–37.9; O2SAT 92–100; BMI 36.5
--- NOTE | 2022-08-23 04:23 | CTR_ITS ---
PROCEDURE INFORMATION: Exam: CT Abdomen And Pelvis With Contrast Exam date and time: 08/23/2022 4:59 AM Age: 52 years old Clinical indication: Abdominal pain; Localized; Left lower quadrant (llq); Additional info: Llq pain TECHNIQUE: Imaging protocol: Computed tomography of the abdomen and pelvis with contrast. Total images: 261 Radiation optimization: All CT scans at this facility use at least one of these dose optimization techniques: automated exposure control; mA and/or kV adjustment per patient size (includes targeted exams where dose is matched to clinical indication); or iterative reconstruction. Contrast material: OMNI 350; Contrast volume: 100 ml; Contrast route: INTRAVENOUS (IV); REPORTING DATA: Count of CT and Cardiac NM exams in prior 12 months: This patient has received 2 known CTs and 0 known cardiac nuclear medicine studies in the 12 months prior to the current study. COMPARISON: [place] [id number] 04/25/2022 10:04 AM RADIATION DOSE METRICS: Total DLP (mGy-cm): 1014.17 FINDINGS: Heart: There has been an aortic valve replacement. Liver: Normal. No mass. Gallbladder and bile ducts: Normal. No calcified stones. No ductal dilation. Pancreas: Normal. No ductal dilation. Spleen: Low-density lesions seen in spleen may represent sequela of prior trauma or infarcts. Adrenal glands: Normal. No mass. Kidneys and ureters: Bilateral heterogeneous low-density lesions seen within the kidneys. No abnormality was detected in the kidneys in March of 2021. Findings may represent renal infarcts versus pyelonephritis with possible small abscesses on the left kidney. Stomach and bowel: Fluid prominence in the rectum could indicate prominent secretions due to infectious/inflammatory enteritis/colitis. Appendix: No evidence of appendicitis. Intraperitoneal space: Unremarkable. No free air. No significant fluid collection. Vasculature: Small thrombus versus dissection involving proximal right SMA series 5, image 34. Mild atherosclerotic disease is evident. Lymph nodes: Unremarkable. No enlarged lymph nodes. Urinary bladder: Unremarkable as visualized. Reproductive: Unremarkable as visualized. Bones/joints: Changes of sternotomy are noted. Disc degeneration is most notable at L5/S1. This finding is stable when compared to the prior exam. Soft tissues: Bilateral fat-containing inguinal hernia. CT/CT abdomen pelvis w con* [id number] IMPRESSION: 1. Low-density lesions seen in spleen may represent sequela of prior trauma or infarcts. 2. Bilateral heterogeneous low-density lesions seen within the kidneys. No abnormality was detected in the kidneys in March of 2021. Findings may represent renal infarcts versus pyelonephritis with possible small abscesses on the left kidney. 3. Small thrombus versus dissection involving proximal right SMA series 5, image 34. 4. Fluid prominence in the rectum could indicate prominent secretions due to infectious/inflammatory enteritis/colitis.
[2022-08-23] MEDS: iohexol 350 mg/mL 500 mL Btl (per mL) IV ×2 (04:31→08:51)
[2022-08-23 04:44] LABS: Basophils % 0.2 %; Hematocrit 37.8 % (42.0-52.0); Hemoglobin 12.7 g/dL (11.7-16.6); Lymphocytes # 0.6 10^3/uL (0.8-4.8); Lymphocytes % 4.8 %; Mean Corpuscular HGB Conc 33.6 g/dL (30.0-36.0); Mean Corpuscular Hemoglobin 28.2 pg (28.0-34.0); Mean Platelet Volume 9.7 fL (7.4-10.4); Monocytes # 0.6 10^3/uL (0.2-0.9); Monocytes % 4.2 %; Neutrophils # 11.85 10^3/uL (1.8-7.7); Neutrophils % 89.8 %; Nucleated Red Blood Cells % 0 %; Platelet Count 176 10^3/cmm (130-400); Red Cell Distribution Width 12.5 % (12.1-15.1); White Blood Count 13.2 10^3/uL (4.0-10.0)
[2022-08-23] MEDS: sodium chloride 0.9% 1,000 ML 999 ML IV ×2 (04:45→05:51)
[2022-08-23] MEDS: haloperidol inj 5 mg/mL INJ 1 mL IVP (04:45)
[2022-08-23] MEDS: morphine 4 mg/mL SDV 1 mL IVP ×2 (04:47→05:53)
[2022-08-23 05:04] LABS: Alanine Aminotransferase 10 U/L (0-41); Albumin Level 3.8 g/dL (3.5-5.2); Alkaline Phosphatase 110 U/L (40-130); Anion Gap 25.1 (5-19); Aspartate Amino Transferase 11 U/L (0-40); Blood Urea Nitrogen 13 mg/dL (6-20); Calcium 8.5 mg/dL (8.5-10.5); Carbon Dioxide 16 mmol/L (22-29); Chloride 85 mmol/L (98-107); Globulin 3.7 g/dL (1.3-4.6); Glomerular Filtration Rate 79.1 mL/min (90-130); Lipase 20 U/L (13-60); Osmolality Calculated 277 mOsm/kg (285-295); Potassium 4.1 mmol/L (3.5-5.1); Sodium 122 mmol/L (136-145); Total Bilirubin 1.2 mg/dL (0.15-1.2); Total Protein 7.5 g/dL (6.6-8.7)
[2022-08-23 05:09] LABS: Glucose 502 mg/dL (65-115)
[2022-08-23] MEDS: insulin regular-human 100 units/1 mL 10 UNIT IVP (05:19)
[2022-08-23 05:24] LABS: Ketone (Acetest) Serum Positive (Negative)
--- NOTE | 2022-08-23 05:37 | ED_ITS ---
Documented by User: Cedric Tilley DO 08/23/22 14:32 HPI - Abdominal Pain General: Chief Complaint: Abdominal Pain Stated Complaint: n/v,abdomen pain, back pain Time Seen by Provider: 08/23/22 04:21 Source: patient History of Present Illness: 52-year-old male with a history of insulin- dependent diabetes. He presents with abdominal pain, generalized, and vomiting. He has had a history of bowel obstruction, and is concerned that this may be the cause. No diarrhea. MD elicited complaint: abdominal pain Pertinent past history: other Onset (ago): hour(s) Pain Consistency: intermittent Location: Diffuse Severity: moderate Quality: cramping and stabbing Radiation: none Migration to: no migration Exacerbating factors: vomiting Relieving factors: nothing Associated Symptoms: Reports belching, fever(s) and vomiting; Denies change in stool character, hematochezia and hematemesis Review of Systems Const: Reports: fever(s) ENMT: Denies: throat pain Card: Denies: chest pain Resp: Denies: dyspnea GI: Reports: vomiting and belching; Denies: hematemesis, change in stool character or hematochezia PFSH ED PFSH: Medical History Anxiety and depression Bowel obstruction CAD (coronary artery disease) Cellulitis and abscess of left leg Diabetes mellitus, with long-term current use of insulin Essential hypertension GERD (gastroesophageal reflux disease) Hepatitis C History of bacterial endocarditis Homicidal ideation Psychiatric care Psychosis Respiratory failure Septic arthritis due to Streptococcus species Suicidal ideation Surgical History History of aortic valve replacement with bioprosthetic valve History of heart valve replacement History of mitral valve replacement with bioprosthetic valve Family History Other Diabetes No significant family history Social History Smoking and tobacco status: unknown if ever smoked Alcohol intake: current Alcohol intake frequency: holidays/special occasions only Housing: Other Details: Homeless Current occupational status: unemployed Physical Exam Const: GENERAL APPEARANCE: in distress and ill appearing HENMT: COMMON NORMALS: normocephalic, atraumatic and Normal external nose present HEAD & SCALP: normocephalic and atraumatic NOSE: Normal external nose present MOUTH: Normal oral and palatal mucosa present Eye: COMMON NORMALS: Equal, round and reactive pupils present and EOMs intact bilaterally PUPIL: Yes Equal, round and reactive pupils present Neck/C-Spine: GENERAL: Yes trachea midline Chest: CHEST: Yes Symmetrical chest wall rise Resp: COMMON NORMALS: normal respiratory effort, No use of accessory muscles and clear to auscultation bilaterally AUSCULTATION: clear to auscultation bilaterally Cardio: COMMON NORMALS: regular rate and regular rhythm RATE: regular rate RHYTHM: regular rhythm GI: PALPATION: Yes Firmness to palpation present (GI) and Yes Tenderness to palpation present (GI) (Diffuse) Extremity: COMMON NORMALS: no pedal edema Course Vital Signs: Vital signs: Vital Signs Temperature 97.0 F L 08/23/22 10:00 Pulse Rate 72 08/23/22 12:00 Respiratory Rate 98 H 08/23/22 14:09 Blood Pressure 91/65 08/23/22 12:00 Pulse Oximetry 98 08/23/22 14:09 Oxygen Delivery Me thod 08/23/22 12:00 Oxygen Flow Rate 2 08/23/22 07:38 MDM - Abdominal Pain Medical Decision Making 52-year-old gentleman with a history of insulin-dependent diabetes. He also has a history of bowel obstruction. He presents with diffuse belly pain, distention, and vomiting. He is also running a temperature of 100.2. He is mildly tachycardic. Normotensive. White blood cell count is 13.2. His CRP is 134. Blood sugar 502. Pseudohyponatremia of 122. His bicarbonate 16. Anion gap is 25, but pH is normal at 7.46. He is hyperventilating significantly. He is received 2 L of fluid in the ER +10 units IV insulin. Rechecking sugar now. CT is read is pending. Spoke with hospitalist. Willing to admit pending a non-surgical belly by CT read. Recommendations are insulin drip, fluid, etc. Lab Data 08/23/22 04:38 08/23/22 04:38 Labs/Radiology: Radiology Impressions Abdomen/Pelvis CT 08/23/22 04:23 IMPRESSION: 1. Low-density lesions seen in spleen may represent sequela of prior trauma or infarcts. 2. Bilateral heterogeneous low-density lesions seen within the kidneys. No abnormality was detected in the kidneys in March of 2021. Findings may represent renal infarcts versus pyelonephritis with possible small abscesses on the left kidney. 3. Small thrombus versus dissection involving proximal right SMA series 5, image 34. 4. Fluid prominence in the rectum could indicate prominent secretions due to infectious/inflammatory enteritis/colitis. ADDENDUM: 08/23/22 0802 THIS REPORT CONTAINS FINDINGS THAT MAY BE CRITICAL TO PATIENT CARE. The findings were verbally communicated via telephone conference at 8:00 AM CDT on 08/23/[address] Izaguirre. The findings were acknowledged and understood. Chest X-Ray 08/23/22 06:19 IMPRESSION: No acute cardiopulmonary process. Abdomen CTA 08/23/22 08:00 IMPRESSION: 1. 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 2. Peripheral splenic perfusion defects similar to prior exam and may represent sequela prior trauma or vascular insult/infarcts. 3. Heterogeneous perfusion defect seen in the mid and upper pole left kidney and lower pole of right kidney may represent pyelonephritis. A vascular insult could give a similar appearance but is felt less likely. Laboratory Results WBC 13.2 10^3/uL (4.0-10.0) H 08/23/22 04:38 RBC 4.50 10^6/uL (4.1-5.3) 08/23/22 04:38 Hgb 12.7 g/dL (11.7-16.6) 08/23/22 04:38 Hct 37.8 % (42.0-52.0) L 08/23/22 04:38 MCV 84.0 fl (80-94) 08/23/22 04:38 MCH 28.2 pg (28.0-34.0) 08/23/22 04:38 MCHC 33.6 g/dL (30.0-36.0) 08/23/22 04:38 RDW 12.5 % (12.1-15.1) 08/23/22 04:38 Plt Count 176 10^3/cmm (130-400) 08/23/22 04:38 MPV 9.7 fL (7.4-10.4) 08/23/22 04:38 Neut % (Auto) 89.8 % 08/23/22 04:38 Lymph % (Auto) 4.8 % 08/23/22 04:38 Refug[place] % (Auto) 4.2 % 08/23/22 04:38 Eos % (Auto) 0.0 % 08/23/22 04:38 Baso % (Auto) 0.2 % 08/23/22 04:38 Neut # (Auto) 11.85 10^3/uL (1.8-7.7) H 08/23/22 04:38 Lymph # (Auto) 0.6 10^3/uL (0.8-4.8) L 08/23/22 04:38 Refug[place] # (Auto) 0.6 10^3/uL (0.2-0.9) 08/23/22 04:38 Eos # (Auto) 0.0 10^3/uL (0.0-0.8) 08/23/22 04:38 Baso # (Auto) 0.0 10^3/uL (0.0-0.1) 08/23/22 04:38 Nucleated RBC % (auto) 0 % 08/23/22 04:38 Nucleated RBCs # 0.0 /100WBC 08/23/22 04:38 Specimen Type Arterial 08/23/22 05:48 Sample Site Radial, left 08/23/22 05:48 ABG pH 7.46 (7.35-7.45) H 08/23/22 05:48 ABG pCO2 24.1 mmHg (35-45) L 08/23/22 05:48 ABG pO2 87.7 mmHg (80.0-100.0) 08/23/22 05:48 ABG HCO3 17.3 mmol/L (22-26) L 08/23/22 05:48 ABG Base Excess -5.0 mmol/L (-2.0-2.0) L 08/23/22 05:48 Evan Test Pos 08/23/22 05:48 Hematocrit 36.3 % (42-52) L 08/23/22 05:48 O2 Delivery Device None 08/23/22 05:48 FiO2 21.0 % 08/23/22 05:48 Land Surveying Manager ID [email or web address] 08/23/22 05:48 Sodium 122 mmol/L (136-145) L 08/23/22 04:38 Potassium 4.1 mmol/L (3.5-5.1) 08/23/22 04:38 Chloride 85 mmol/L (98-107) L 08/23/22 04:38 Carbon Dioxide 16 mmol/L (22-29) L 08/23/22 04:38 Anion Gap 25.1 (5-19) H 08/23/22 04:38 BUN 13 mg/dL (6-20) 08/23/22 04:38 Creatinine 1.0 mg/dL (0.7-1.2) 08/23/22 04:38 GFR Calculation 79.1 mL/min (90-130) L 08/23/22 04:38 Glucose 502 mg/dL (65-115) H* 08/23/22 04:38 Calculated Osmolality 277 mOsm/kg (285-295) L 08/23/22 04:38 Calcium 8.5 mg/dL (8.5-10.5) 08/23/22 04:38 Phosphorus 2.3 mg/dL (2.5-4.5) L 08/23/22 04:38 Magnesium 1.4 mg/dL (1.7-2.3) L 08/23/22 04:38 Total Bilirubin 1.2 mg/dL (0.15-1.2) 08/23/22 04:38 AST 11 U/L (0-40) 08/23/22 04:38 ALT 10 U/L (0-41) 08/23/22 04:38 Alkaline Phosphatase 110 U/L (40-130) 08/23/22 04:38 C-Reactive Protein 134.0 mg/L (0.0-4.9) H 08/23/22 04:38 Total Protein 7.5 g/dL (6.6-8.7) 08/23/22 04:38 Albumin 3.8 g/dL (3.5-5.2) 08/23/22 04:38 Globulin 3.7 g/dL (1.3-4.6) 08/23/22 04:38 Lipase 20 U/L (13-60) 08/23/22 04:38 Serum Ketones Positive (Negative) H 08/23/22 04:38 Discharge Plan Discharge Patient Disposition: Admitted As Inpatient Admit Provider: Deni Fleming Clinical Impression: DKA (diabetic ketoacidosis), Diabetes mellitus, with long-term current use of insulin Condition: Fair Coding Level of Care Code ED Alterations Manager for Chg Fwd Documented by User: Viet Izaguirre DO 08/23/22 09:28 HPI - Abdominal Pain General: Chief Complaint: Abdominal Pain Stated Complaint: n/v,abdomen pain, back pain Time Seen by Provider: 08/23/22 04:21 PFSH ED PFSH: Medical History Anxiety and depression Bowel obstruction CAD (coronary artery disease) Cellulitis and abscess of left leg Diabetes mellitus, with long-term current use of insulin Essential hypertension GERD (gastroesophageal reflux disease) Hepatitis C History of bacterial endocarditis Homicidal ideation Psychiatric care Psychosis Respiratory failure Septic arthritis due to Streptococcus species Suicidal ideation Surgical History History of aortic valve replacement with bioprosthetic valve History of heart valve replacement History of mitral valve replacement with bioprosthetic valve Family History Other Diabetes No significant family history Social History Smoking and tobacco status: unknown if ever smoked Alcohol intake: current Alcohol intake frequency: holidays/special occasions only Housing: Other Details: Homeless Current occupational status: unemployed Course Vital Signs: Vital signs: Vital Signs Temperature 97.0 F L 08/23/22 10:00 Pulse Rate 72 08/23/22 12:00 Respiratory Rate 98 H 08/23/22 14:09 Blood Pressure 91/65 08/23/22 12:00 Pulse Oximetry 98 08/23/22 14:09 Oxygen Delivery Me thod 08/23/22 12:00 Oxygen Flow Rate 2 08/23/22 07:38 MDM - Abdominal Pain Medical Decision Making 52-year-old gentleman with a history of insulin-dependent diabetes. He also has a history of bowel obstruction. He presents with diffuse belly pain, distention, and vomiting. He is also running a temperature of 100.2. He is mildly tachycardic. Normotensive. White blood cell count is 13.2. His CRP is 134. Blood sugar 502. Pseudohyponatremia of 122. His bicarbonate 16. Anion gap is 25, but pH is normal at 7.46. He is hyperventilating significantly. He is received 2 L of fluid in the ER +10 units IV insulin. Rechecking sugar now. CT is read is pending. Spoke with hospitalist. Willing to admit pending a non-surgical belly by CT read. Recommendations are insulin drip, fluid, etc. CT abdomen abnormal areas in the spleen and kidneys. Urine shows hematuria but negative for leukocyte esterase and nitrates. Shows 4+ glucose. Is a question of dissection versus thrombus in the SMA however patient's abdominal exam is benign at this time and talking to him does not sound like he has any kind of bowel ischemia. He actually states he is feeling better. CTA was done still undetermined compared to the CT. Patient has been admitted by Dr. Lonnie Tilley to talk to him earlier. Advised Dr. Harp of the CT findings. Medical Records I reviewed the patient's medical records. Lab Data I reviewed the patient's lab results. 08/23/22 04:38 08/23/22 04:38 Labs/Radiology: Radiology Impressions Abdomen/Pelvis CT 08/23/22 04:23 IMPRESSION: 1. Low-density lesions seen in spleen may represent sequela of prior trauma or infarcts. 2. Bilateral heterogeneous low-density lesions seen within the kidneys. No abnormality was detected in the kidneys in March of 2021. Findings may represent renal infarcts versus pyelonephritis with possible small abscesses on the left kidney. 3. Small thrombus versus dissection involving proximal right SMA series 5, image 34. 4. Fluid prominence in the rectum could indicate prominent secretions due to infectious/inflammatory enteritis/colitis. ADDENDUM: 08/23/22 0802 THIS REPORT CONTAINS FINDINGS THAT MAY BE CRITICAL TO PATIENT CARE. The findings were verbally communicated via telephone conference at 8:00 AM CDT on 08/23/[address] Izaguirre. The findings were acknowledged and understood. Chest X-Ray 08/23/22 06:19 IMPRESSION: No acute cardiopulmonary process. Abdomen CTA 08/23/22 08:00 IMPRESSION: 1. 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 2. Peripheral splenic perfusion defects similar to prior exam and may represent sequela prior trauma or vascular insult/infarcts. 3. Heterogeneous perfusion defect seen in the mid and upper pole left kidney and lower pole of right kidney may represent pyelonephritis. A vascular insult could give a similar appearance but is felt less likely. Laboratory Results WBC 13.2 10^3/uL (4.0-10.0) H 08/23/22 04:38 RBC 4.50 10^6/uL (4.1-5.3) 08/23/22 04:38 Hgb 12.7 g/dL (11.7-16.6) 08/23/22 04:38 Hct 37.8 % (42.0-52.0) L 08/23/22 04:38 MCV 84.0 fl (80-94) 08/23/22 04:38 MCH 28.2 pg (28.0-34.0) 08/23/22 04:38 MCHC 33.6 g/dL (30.0-36.0) 08/23/22 04:38 RDW 12.5 % (12.1-15.1) 08/23/22 04:38 Plt Count 176 10^3/cmm (130-400) 08/23/22 04:38 MPV 9.7 fL (7.4-10.4) 08/23/22 04:38 Neut % (Auto) 89.8 % 08/23/22 04:38 Lymph % (Auto) 4.8 % 08/23/22 04:38 Refugio % (Auto) 4.2 % 08/23/22 04:38 Eos % (Auto) 0.0 % 08/23/22 04:38 Baso % (Auto) 0.2 % 08/23/22 04:38 Neut # (Auto) 11.85 10^3/uL (1.8-7.7) H 08/23/22 04:38 Lymph # (Auto) 0.6 10^3/uL (0.8-4.8) L 08/23/22 04:38 Refug[place] # (Auto) 0.6 10^3/uL (0.2-0.9) 08/23/22 04:38 Eos # (Auto) 0.0 10^3/uL (0.0-0.8) 08/23/22 04:38 Baso # (Auto) 0.0 10^3/uL (0.0-0.1) 08/23/22 04:38 Nucleated RBC % (auto) 0 % 08/23/22 04:38 Nucleated RBCs # 0.0 /100WBC 08/23/22 04:38 Specimen Type Arterial 08/23/22 05:48 Sample Site Radial, left 08/23/22 05:48 ABG pH 7.46 (7.35-7.45) H 08/23/22 05:48 ABG pCO2 24.1 mmHg (35-45) L 08/23/22 05:48 ABG pO2 87.7 mmHg (80.0-100.0) 08/23/22 05:48 ABG HCO3 17.3 mmol/L (22-26) L 08/23/22 05:48 ABG Base Excess -5.0 mmol/L (-2.0-2.0) L 08/23/22 05:48 Evan Test Pos 08/23/22 05:48 Hematocrit 36.3 % (42-52) L 08/23/22 05:48 O2 Delivery Device None 08/23/22 05:48 FiO2 21.0 % 08/23/22 05:48 Land Surveying Manager ID [email or web address] 08/23/22 05:48 Sodium 122 mmol/L (136-145) L 08/23/22 04:38 Potassium 4.1 mmol/L (3.5-5.1) 08/23/22 04:38 Chloride 85 mmol/L (98-107) L 08/23/22 04:38 Carbon Dioxide 16 mmol/L (22-29) L 08/23/22 04:38 Anion Gap 25.1 (5-19) H 08/23/22 04:38 BUN 13 mg/dL (6-20) 08/23/22 04:38 Creatinine 1.0 mg/dL (0.7-1.2) 08/23/22 04:38 GFR Calculation 79.1 mL/min (90-130) L 08/23/22 04:38 Glucose 502 mg/dL (65-115) H* 08/23/22 04:38 Calculated Osmolality 277 mOsm/kg (285-295) L 08/23/22 04:38 Calcium 8.5 mg/dL (8.5-10.5) 08/23/22 04:38 Phosphorus 2.3 mg/dL (2.5-4.5) L 08/23/22 04:38 Magnesium 1.4 mg/dL (1.7-2.3) L 08/23/22 04:38 Total Bilirubin 1.2 mg/dL (0.15-1.2) 08/23/22 04:38 AST 11 U/L (0-40) 08/23/22 04:38 ALT 10 U/L (0-41) 08/23/22 04:38 Alkaline Phosphatase 110 U/L (40-130) 08/23/22 04:38 C-Reactive Protein 134.0 mg/L (0.0-4.9) H 08/23/22 04:38 Total Protein 7.5 g/dL (6.6-8.7) 08/23/22 04:38 Albumin 3.8 g/dL (3.5-5.2) 08/23/22 04:38 Globulin 3.7 g/dL (1.3-4.6) 08/23/22 04:38 Lipase 20 U/L (13-60) 08/23/22 04:38 Serum Ketones Positive (Negative) H 08/23/22 04:38 Discharge Plan Discharge Patient Disposition: Admitted As Inpatient Admit Provider: Deni Fleming Clinical Impression: DKA (diabetic ketoacidosis), Diabetes mellitus, with long-term current use of insulin Condition: Fair Coding Level of Care Code ED Alterations Manager for Janis Barakat
[2022-08-23] MEDS: ondansetron 2 mg/ML SDV 2 mL 4 MG IVP (05:51)
[2022-08-23 05:54] LABS: ABG PCO2 24.1 mmHg (35-45); ABG PH Result 7.46 (7.35-7.45); Arterial Blood Gas Hematocrit 36.3 % (42-52); Blood Gas Allen Test Pos; Blood Gas Sample Site Radial, left; Blood Gas Sample Type Arterial; HCO3 ABG 17.3 mmol/L (22-26); PO2 ABG 87.7 mmHg (80.0-100.0)
--- NOTE | 2022-08-23 06:19 | XRR_ITS ---
PROCEDURE INFORMATION: Exam: XR Chest Exam date and time: 08/23/2022 6:32 AM Age: 52 years old Clinical indication: Fever TECHNIQUE: Imaging protocol: Radiologic exam of the chest. Views: 1 view. Total images: 2 COMPARISON: CR XR chest 1V portable [id number] 04/29/2022 4:04 PM FINDINGS: Lungs: Unremarkable. No consolidation. Pleural spaces: Unremarkable. No pleural effusion. No pneumothorax. Heart/Mediastinum: Unremarkable. No cardiomegaly. Bones/joints: Changes of sternotomy are noted. XR/XR chest 1V portable [id number] IMPRESSION: No acute cardiopulmonary process.
[2022-08-23 06:40] LABS: Glucose Point of Care 398 mg/dL (70-110)
--- NOTE | 2022-08-23 06:45 | P.HP_ITS ---
Providers/Chief Complaint Primary Care Provider: Nba Rascon MD Chief Complaint: n/v,abdomen pain, back pain History of Present Illness 52-year-old gentleman with history of DM 2, states has not missed his insulin, has been feeling unwell, came in for evaluation due to nausea vomiting, abdominal pain, has had history of bowel obstruction in the past, and thought he was developing this again. He has been having malaise, diaphoresis. He reports has been coughing and has a headache. In ER noted sinus tachycardia 116, fever 100.2 F, cytosis 13.2. ABG 7.46/24.1/87.7/17.3. Sodium 122, potassium 4.1, chloride 85, bicarb 16, anion gap 25.1. BUN 13, creatinine 1. Glucose 502. Liver parameters unremarkable. CRP 134. Positive serum ketones. CT abdomen pelvis performed in ER, radiology read pending, per preliminary read by ED physician no acute surgical illness, possible enteritis. Review of Systems Const: Reports: fever(s), malaise and diaphoresis ENMT: Denies: throat pain or ear or mastoid pain Card: Denies: chest pain, edema, pre-syncope or dyspnea on exertion Resp: Denies: dyspnea, productive cough, change in phlegm color or hemoptysis GI: Reports: abdominal pain, nausea and vomiting; Denies: diarrhea, constipation, hematochezia or melena : Denies: flank pain, difficulty urinating, urinary frequency or hematuria Musc: Denies: back pain, joint swelling or joint redness Skin/Breast: Denies: rash or new lesions Neuro: Denies: headache(s), numbness in extremities, weakness in extremities, dizziness, confusion or seizure-like activity Endo: Denies: polyuria or polydipsia Medications/Allergies Home Medications Medication Instructions Recorded Confirmed Last Taken Type gabapentin 300 mg capsule 300 mg PO TID chronic pain 30 days 07/14/22 07/14/22 Unknown Rx #90 caps insulin aspar prt-insulin aspart 20 unit (0.2 mL) SUBCUT DAILY 07/14/22 07/14/22 Unknown Rx 100 unit/mL (70-30) subcutaneous diabetes #10 mL soln (Novolog Mix 70-30 U-100 Insuln) insulin syringe-needle U-100 1 mL #500 ea 07/16/22 Unknown Rx 30 gauge x 1/2 (BD Insulin Syringe Ultra-Fine) Allergies Allergy/AdvReac Type Severity Reaction Status Date / Time ketamine Allergy Severe ADR-Agitate Verified 08/23/22 07:03 d Penicillins Allergy Severe Unknown Verified 08/23/22 07:03 PFSH Acute PFSH: Medical History Anxiety and depression Bowel obstruction CAD (coronary artery disease) Cellulitis and abscess of left leg Diabetes mellitus, with long-term current use of insulin Essential hypertension GERD (gastroesophageal reflux disease) Hepatitis C History of bacterial endocarditis Homicidal ideation Psychiatric care Psychosis Respiratory failure Septic arthritis due to Streptococcus species Suicidal ideation Surgical History History of aortic valve replacement with bioprosthetic valve History of heart valve replacement History of mitral valve replacement with bioprosthetic valve Family History Other Diabetes No significant family history Social History Smoking and tobacco status: unknown if ever smoked Alcohol intake: current Alcohol intake frequency: holidays/special occasions o nly Housing: Other Details: Homeless Current occupational status: unemployed Vitals/I&O/Wt Last Vital Signs Temp 100.2 F H 08/23/22 04:13 Pulse 100 08/23/22 06:41 Resp 18 08/23/22 06:41 BP 109/63 08/23/22 06:41 Pulse Ox 93 08/23/22 06:41 O2 Del Method 08/23/22 06:41 08/22/22 08/22/22 08/23/22 14:59 22:59 06:59 Intake Total 1999 Balance 1999 Weight last 48 hrs Weight 108.862 kg Physical Exam Const: COMMON NORMALS: patient oriented x3 and alert GENERAL APPEARANCE: cooperative, ill appearing and diaphoretic NUTRITIONAL APPEARANCE: overweight ORIENTATION/CONSCIOUSNESS: Yes awake HENMT: COMMON NORMALS: oropharynx normal Neck/C-Spine: COMMON NORMALS: no JVD Resp: COMMON NORMALS: normal respiratory effort and clear to auscultation bilaterally AUSCULTATION: clear to auscultation bilaterally Cardio: COMMON NORMALS: no JVD, regular rhythm, S1 normal heart sound present, S2 normal heart sound present and No murmurs present (Cardio) RHYTHM: regular rhythm HEART SOUNDS: S1 normal heart sound present and S2 normal heart sound present GI: COMMON NORMALS: Soft to palpation AUSCULTATION: Yes normoactive bowel sounds PALPATION: Yes Soft to palpation Extremity: COMMON NORMALS: no joint enlargement and no pedal edema Neuro: COMMON NORMALS: patient oriented x3 and moves all extremities SENSORIUM/ORIENTATION: Yes alert Skin: COMMON NORMALS: no rashes or lesions noted GENERAL SKIN EXAM: no rashes or lesions noted Data 08/23/22 04:38 08/23/22 04:38 A&P Assessment and plan (1) DKA (diabetic ketoacidosis): Anion gap 25, bicarb 16, glucose 502, serum ketones positive. States he does not miss insulin. He does have fever, possibly acute viral illness as a trigger. Nausea and vomiting may be secondary to DKA, although does have history of bowel obstruction. CT is pending read without obvious obstruction preliminarily. Combined acid base disorder with metabolic acidosis with anion gap elevation, low bicarb, ABG noted with alkalosis, although he is somewhat tachypneic as well, also had vomiting. IV hydration with NS. Insulin drip with Accu-Cheks requested infusion and monitoring in ICU. Follow-up chemistries. Requested. Also checking magnesium, Phos. NPO, sips and chips. VTE prophylaxis with Lovenox. GI prophylaxis with PPI. Declines urinary catheter for now. May be needed if he does not urinate. (2) Fever: He is coughing, with headache, nausea or vomiting. Sounds like he may have a viral illness, discussed with him respiratory viral panel, obtained and pending. Pending CT abdomen pelvis, he thought he was having obstruction, although no obvious obstruction on preliminary read. Obtain chest x-ray, appears without acute abnormality on my interpretation. UA pending. He declines urinary catheter for now. History of endocarditis, will obtain blood culture. Has history of illicit substance use, to which she admits, denies currently, and also denies injection. Follow-up CBC requested. (3) Nausea and vomiting: Suspect may be combination secondary to acute viral illness, viral panel pending, as well as DKA, treatment as above. Pending CT abdomen pelvis, please follow-up final result. In p.o. sips and chips. Zofran as needed. (4) Hyponatremia: Corrected sodium 132. Sodium chloride infusion. Follow-up BMPs requested. (5) Goals of care, counseling/discussion: On discussion of goals of care in case of cardiopulmonary arrest, he would be okay for attempted resuscitation. Names his son as surrogate decision-maker if could not make decisions for himself. Plan Anxiety and depression History of bowel obstruction CAD DM2: States has not missed insulin. HTN GERD Hepatitis C History of bacterial endocarditis History of suicidal and homicidal ideation Psychiatric care History of septic arthritis Attestations Medical Necessity Statement*: Admission of over 2 midnights in this patient for assessment management of DKA, assessment of triggering etiology with fever. Coding Level of Care Code Critical Care >/= 30 minutes Critical care time (in minutes): 40 The high probability of a clinically significant, sudden or life threatening deterioration, as referenced in this documentation, required my full and direct attention, intervention and personal management. The critical care time shown is in addition to time spent performing any reported separately billable procedures and includes the following: [x] Data and vital sign review and interpretation [x ] Patient assessment, examination and intervention [x] Medication orders and management [x] Patient/Family updates as able [x] Care Coordination and Documentation. Diagnoses DKA (diabetic ketoacidosis) E11.10 Fever R50.9 Nausea and vomiting R11.2 Hyponatremia E87.1 Goals of care, counseling/discussion Z71.89
[2022-08-23 07:49] LABS: Glucose Point of Care 369 mg/dL (70-110)
[2022-08-23] MEDS: insulin regular-human 250 UNIT in sodium chloride 0.9% 250 ML 9.09 UNIT IV (07:51)
--- NOTE | 2022-08-23 08:00 | CTR_ITS ---
PROCEDURE INFORMATION: Exam: CTA Abdomen With Contrast Exam date and time: 08/23/2022 8:39 AM Age: 52 years old Clinical indication: Abdominal pain; Localized; Left lower quadrant (llq); Additional info: Abdnormal CT TECHNIQUE: Imaging protocol: Computed tomographic angiography of the abdomen with contrast. 3D rendering (Not supervised by radiologist): MIP and/or 3D reconstructed images were created by the technologist. Total images: 1 Radiation optimization: All CT scans at this facility use at least one of these dose optimization techniques: automated exposure control; mA and/or kV adjustment per patient size (includes targeted exams where dose is matched to clinical indication); or iterative reconstruction. Contrast material: OMNI 350; Contrast volume: 100 ml; Contrast route: INTRAVENOUS (IV); REPORTING DATA: Count of CT and Cardiac NM exams in prior 12 months: This patient has received 3 known CTs and 0 known cardiac nuclear medicine studies in the 12 months prior to the current study. COMPARISON: CT abdomen pelvis w con* [id number] 08/23/2022 4:59 AM RADIATION DOSE METRICS: Total DLP (mGy-cm): 745.1 FINDINGS: Aorta: No aortic aneurysm. No aortic dissection. 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 Renal arteries: No occlusion or significant stenosis. Liver: Normal. No mass. Gallbladder and bile ducts: Normal. No calcified stones. No ductal dilation. Pancreas: Normal. No ductal dilation. Spleen: Normal. No splenomegaly. Adrenal glands: Normal. No mass. Kidneys and ureters: Heterogeneous perfusion defect seen in the mid and upper pole left kidney and lower pole of right kidney may represent pyelonephritis. A vascular insult could give a similar appearance but is felt less likely. Stomach and bowel: Unremarkable. No obstruction. No mucosal thickening. Lymph nodes: Unremarkable. No enlarged lymph nodes. Intraperitoneal space: Unremarkable. No free air. No significant fluid collection. Bones/joints: Disc degeneration is most notable at L5/S1. This finding is stable when compared to the prior exam. Soft tissues: Unremarkable. Other findings: Examination is motion limited. Peripheral splenic perfusion defects similar to prior exam and may represent sequela prior trauma or vascular insult/infarcts. CT/CT angio abdomen [id number] IMPRESSION: 1. 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 2. Peripheral splenic perfusion defects similar to prior exam and may represent sequela prior trauma or vascular insult/infarcts. 3. Heterogeneous perfusion defect seen in the mid and upper pole left kidney and lower pole of right kidney may represent pyelonephritis. A vascular insult could give a similar appearance but is felt less likely.
[2022-08-23] MEDS: enoxaparin 40 mg/0.4 mL Syringe SUBCUT (08:05)
[2022-08-23] MEDS: sodium chloride 0.9% 1,000 ML 200 ML IV ×3 (08:06→19:25)
[2022-08-23] MEDS: pantoprazole 40 mg SDV IVP (08:06)
[2022-08-23 08:07] LABS: Add Urine Culture? No; Add Urine Microscopic? YES; Bacteria Urine TRACE /hpf; Bilirubin Urine Neg (Negative); Blood Urine 3+ (Negative); Glucose Urine UA 4+ (Normal); Ketones Urine 2+ (Negative); Leukocyte Esterase Urine Negative (Negative); Nitrate Urine Negative (Negative); Protein Urine 1+ (Negative); Specific Gravity, Urine 1.005 (1.005-1.030); Urine Appearance Clear (CLEAR); Urine Color Yellow (Yellow); Urobilinogen Urine Norm (Negative); WBC Urine 0-4 /hpf (0-5); pH Urine 5 (5-7)
[2022-08-23 08:07] LABS: Magnesium 1.4 mg/dL (1.7-2.3); Phosphorus 2.3 mg/dL (2.5-4.5)
[2022-08-23 08:08] LABS: Amphetamines Screen Urine Negative (Negative); Barbiturates Screen Urine Negative (Negative); Benzodiazepines Screen Urine Negative (Negative); Cocaine Screen Urine Negative (Negative); Opiate Screen Urine Positive (Negative); PCP Screen Urine Negative (Negative); THC Screen Urine Positive (Negative)
[2022-08-23 08:31] LABS: Adenovirus Not Detected (NOT DETECT); Chlamydia Pneumoniae Not Detected (NOT DETECT); Coronavirus 229E,HKU1,NL63,OC4 Not Detected (NOT DETECT); Human Metapneumovirus Not Detected (NOT DETECT); Human Rhinovirus/Enterovirus Not Detected (NOT DETECT); Influenza A Not Detected (NOT DETECT); Influenza A H1 Not Detected (NOT DETECT); Influenza A H1-2009 Not Detected (NOT DETECT); Influenza A H3 Not Detected (NOT DETECT); Influenza B Not Detected (NOT DETECT); Mycoplasma Pneumoniae Not Detected (NOT DETECT); Parainfluenza Virus Type 1 Not Detected (NOT DETECT); Parainfluenza Virus Type 2 Not Detected (NOT DETECT); Parainfluenza Virus Type 3 Not Detected (NOT DETECT); Parainfluenza Virus Type 4 Not Detected (NOT DETECT); Respiratory Syncytial Virus A Not Detected (NOT DETECT); Respiratory Syncytial Virus B Not Detected (NOT DETECT); SARS-COV-2 Not Detected (NOT DETECT)
[2022-08-23 09:05] LABS: Glucose Point of Care 344 mg/dL (70-110)
[2022-08-23 09:11] LABS: Anion Gap 18.7 (5-19); Blood Urea Nitrogen 12 mg/dL (6-20); Carbon Dioxide 17 mmol/L (22-29); Chloride 94 mmol/L (98-107); Glomerular Filtration Rate 102.3 mL/min (90-130); Glucose 377 mg/dL (65-115); Osmolality Calculated 277 mOsm/kg (285-295); Potassium 3.7 mmol/L (3.5-5.1); Sodium 126 mmol/L (136-145)
[2022-08-23] MEDS: morphine 4 mg/mL SDV 1 mL 2 MG IVP ×3 (09:26→19:24)
[2022-08-23 10:25] LABS: Glucose Point of Care 286 mg/dL (70-110)
--- NOTE | 2022-08-23 10:39 | PC.NURSE ---
BP reading 170s systolic to 80s systolic within minutes of each other, HR 70s-80s NSR. Cap refill 5 sec. Patient asymptomatic and moving all over the bed to get comfortable. Monitor set to Q15 minutes.
[2022-08-23 11:53] LABS: Glucose Point of Care 182 mg/dL (70-110)
--- NOTE | 2022-08-23 12:26 | PC.NURSE ---
Transfer to [facility] due to CTA findings of SMA occlusion/thrombus/dissection. Patient asked that his son Hugo be called and notified. This was done and update given.
[2022-08-23 13:02] LABS: Glucose Point of Care 165 mg/dL (70-110)
--- NOTE | 2022-08-23 13:12 | P.MISC_ITS ---
Miscellaneous Note Purpose of Documentation: Overnight labs and H&P have been reviewed. 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 Concern also for potential infarcts in the spleen and kidneys. No clinical signs of pyelonephritis. Discussed case with interventional cardiology, currently beyond the scope of practice here at [facility]. Attempting transfer at a facility where the services are available. Anion gap closed. We will discontinue insulin drip and switch to basal and preprandial insulin Other Coding Information Prolonged care (total time indicated above or notated here) called multiple hospitals for transfer for critical call on CT imaging which could be life threatening. Most of my time spent in talking to other facilities for patient care. Overall time spent 60 minutes in patient care and all the above.
[2022-08-23] MEDS: insulin glargine 100 units/1 mL 20 UNIT SUBCUT (13:42)
[2022-08-23 17:35] LABS: Glucose Point of Care 208 mg/dL (70-110)
[2022-08-23] MEDS: insulin lispro 100 unit/1 mL SUBCUT (17:38)
[2022-08-23 19:41] LABS: Partial Thromboplastin Time 31.3 SECONDS (23.9-36.7)
[2022-08-23 19:45] LABS: Anion Gap 16.4 (5-19); Blood Urea Nitrogen 9 mg/dL (6-20); Calcium 7.4 mg/dL (8.5-10.5); Carbon Dioxide 20 mmol/L (22-29); Chloride 100 mmol/L (98-107); Glomerular Filtration Rate 142.6 mL/min (90-130); Glucose 177 mg/dL (65-115); Osmolality Calculated 279 mOsm/kg (285-295); Potassium 3.4 mmol/L (3.5-5.1); Sodium 133 mmol/L (136-145)
[2022-08-23] MEDS: heparin drip 25,000 UNIT/500 ML PREMIX 30.48 UNIT IV (20:12)
[2022-08-23] MEDS: heparin 5,000 unit/mL INJ 1 mL IV (20:13)
--- NOTE | 2022-08-23 20:54 | PC.NURSE ---
Report called to Amelie Sears Rn took report for patient arriving at room 4320. Father and Son both called to relay information. Lan Barraza arrived to transfer patient at 2039. Patient was stable, received prn morphine for Back pain, vitals within normal limits (see vitals).
== END 2022-08-23 20:40 | disposition short-term general hospital (02) | DRG 638 ==
LOC: ER 06:21 → ICU 06:54
PROVIDERS: Emergency Medicine; Admitting Provider Internal Medicine; Emergency Provider Family Medicine; PCP Family Medicine Adult Medicine; Visit Provider Student in an Organized Health Care Education/Training Program
DX: E11.10 Type 2 diabetes mellitus with ketoacidosis without coma (principal); E87.1 Hypo-osmolality and hyponatremia; K55.1 Chronic vascular disorders of intestine; Z95.3 Presence of xenogenic heart valve; F41.9 Anxiety disorder, unspecified; F32.A Depression, unspecified; I25.10 Atherosclerotic heart disease of native coronary artery without angina pectoris; Z59.00 Homelessness unspecified; I10 Essential (primary) hypertension; K21.9 Gastro-esophageal reflux disease without esophagitis; Z86.19 Personal history of other infectious and parasitic diseases
CPT/HCPCS: 36415; 36416; 36600; 71045; 74175; 74177; 80048; 80053; 80306; 81001; 82009; 82803; 82962; 83605; 83690; 83735; 84100; 85025; 85730; 86140; 87040; 87486; 87581; 87633; 96365; 96372; 96375; 96376; 99285; C9113; J1630; J1644; J1650; J1815; J2270; J2405; J7030; J7050; Q9967

== ENCOUNTER 2024-03-23 13:15 | Emergency (ER) | payer MEDICAID, SELFPAY ==
[2024-03-23 13:22] VITALS: BP 132/109; PULSE 91; RESP 16; TEMP 36.4; O2SAT 96; BMI 34.9
--- NOTE | 2024-03-23 13:56 | W.ED.ABDPA2 ---
HPI - Abdominal Pain General: Chief Complaint: Abdominal Pain Stated Complaint: pain in backside Time Seen by Provider: 03/23/24 13:25 History of Present Illness: 54-year-old male presents emergency room with mild left lower quadrant discomfort when he describes as but the pain. He does not have any medic easy melena hematemesis coffee-ground emesis. He has had some loose stools yesterday none today. No fever sweats or chills Associated Symptoms: Reports diarrhea (Intermittent) and nausea; Denies chills, dysuria, fever(s) and vomiting Related Data Home Medications Medication Instructions Recorded Confirmed Lantus U-100 Insulin 3 - 5 units INJECTION QAM 03/23/24 03/23/24 Previous Rx's Medication Instructions Recorded ciprofloxacin HCl 500 mg tablet 500 mg PO BID #14 tabs 03/23/24 metronidazole 500 mg tablet 500 mg PO BID 7 days #14 tabs 03/23/24 Allergies Allergy/AdvReac Type Severity Reaction Status Date / Time ketamine Allergy Severe ADR-Agitate Verified 11/04/22 09:03 d Penicillins Allergy Severe Unknown Verified 11/04/22 09:03 Review of Systems Const: Denies: fever(s) or chills Card: Denies: chest pain Resp: Denies: dyspnea GI: Reports: abdominal pain, nausea and diarrhea (Intermittent); Denies: vomiting : Denies: dysuria, urinary frequency or urinary urgency Musc: Denies: neck pain or back pain Skin/Breast: Denies: rash PFSH ED PFSH: Medical History Diabetes mellitus type 2 in obese Endocarditis and heart valve disorders in diseases classified elsewhere BJ & splenic abscess 08/28/3022 -10/13/2022 Splenic abscess BJ & endocartitis 08/28/3022 -10/13/2022 Polysubstance abuse drug overdose of Heroin, methamphetamine, alcohol, cannabis with suicidal/homicidal ideation and psychosis Aortic valve endocarditis 08/27/2022 Suicide attempt Psychosis Respiratory failure Anxiety and depression GERD (gastroesophageal reflux disease) Homicidal ideation Essential hypertension Septic arthritis due to Streptococcus species History of bacterial endocarditis Hepatitis C CAD (coronary artery disease) Bowel obstruction Surgical History 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[facility], for Splenic abscess S/P placement of cardiac pacemaker 08/26/2022 placement, after complete heart block postsurgical [facility] History of aortic valve replacement with bioprosthetic valve 09/02/2022 & 10/08/2022 surgery for aortic valve endocarditis, [facility] History of mitral valve replacement with bioprosthetic valve Family History Other Diabetes No significant family history Social History Smoking and tobacco/nicotine status: unknown if used tobacco/nicotine Alcohol intake: current Alcohol intake frequency: holidays/special occasions only Substance/Drug Use: current Substance/Drug use frequency: few times a week Housing: Other Details: Homeless Current occupational status: unemployed Physical Exam Const: GENERAL APPEARANCE: cooperative ORIENTATION/CONSCIOUSNESS: Yes awake, Yes oriented to person, Yes oriented to place and Yes oriented to time HENMT: COMMON NORMALS: normocephalic, atraumatic and hearing grossly normal bilaterally HEAD & SCALP: normocephalic and atraumatic Resp: COMMON NORMALS: normal respiratory effort, No retractions, No use of accessory muscles and clear to auscultation bilaterally AUSCULTATION: clear to auscultation bilaterally Cardio: COMMON NORMALS: regular rate, regular rhythm and No murmurs present (Cardio) RATE: regular rate RHYTHM: regular rhythm GI: COMMON NORMALS: Soft to palpation and No hepatosplenomegaly present AUSCULTATION: Yes normoactive bowel sounds PALPATION: Yes Soft to palpation, No Tenderness to palpation present (GI), No Guarding due to palpation present (GI) and Yes No hepatosplenomegaly present Extremity: COMMON NORMALS: normal to inspection, capillary refill normal, no clubbing, cyanosis or edema, no calf tenderness and no pedal edema Neuro: SENSORIUM/ORIENTATION: Yes oriented to person, Yes oriented to place and Yes oriented to time Skin: COMMON NORMALS: no rashes or lesions noted GENERAL SKIN EXAM: no rashes or lesions noted Course Vital Signs: Vital signs: Vital Signs Temperature 97.5 F L 03/23/24 13:22 Pulse Rate 80 03/23/24 15:47 Respiratory Rate 16 03/23/24 13:22 Blood Pressure 120/66 03/23/24 15:47 Pulse Oximetry 96 03/23/24 15:47 Oxygen Delivery Me thod Room Air 03/23/24 13:22 MDM - Abdominal Pain Medical Decision Making Clinically patient appears to have mild diverticulitis. He has no acute findings on abdominal exam of the some moderate tenderness in the left lower quadrant rectal exam was done there is no blood at the rectal verge he does not have any active lesions no perirectal abscesses or pilonidal cyst. Discharge patient home on Cipro and Flagyl and follow-up with his primary care physician return for further problems. Medical Records I reviewed the patient's medical records. Lab Data I reviewed the patient's lab results. 03/23/24 13:49 03/23/24 13:49 Labs/Radiology: Laboratory Results WBC 9.29 10^3/uL (3.29-11.43) 03/23/24 13:49 RBC 4.90 10^6/uL (3.85-5.65) 03/23/24 13:49 Hgb 15.00 g/dL (11.27-16.99) 03/23/24 13:49 Hct 44.0 % (37-53) 03/23/24 13:49 MCV 89.8 fl (82-101) 03/23/24 13:49 MCH 30.6 pg (27-33) 03/23/24 13:49 MCHC 34.1 g/dL (30-55) 03/23/24 13:49 RDW 12.5 % (12.1-15.1) 03/23/24 13:49 Plt Count 378 10^3/cmm (157-399) 03/23/24 13:49 MPV 9.6 fL (7.4-10.4) 03/23/24 13:49 Neut % (Auto) 43.2 % 03/23/24 13:49 Lymph % (Auto) 46.5 % 03/23/24 13:49 Mcculloch % (Auto) 8.1 % 03/23/24 13:49 Eos % (Auto) 1.1 % 03/23/24 13:49 Baso % (Auto) 0.8 % 03/23/24 13:49 Neut # (Auto) 4.02 10^3/uL (1.8-7.7) 03/23/24 13:49 Lymph # (Auto) 4.3 10^3/uL (0.8-4.8) 03/23/24 13:49 Mcculloch # (Auto) 0.8 10^3/uL (0.2-0.9) 03/23/24 13:49 Eos # (Auto) 0.1 10^3/uL (0.0-0.8) 03/23/24 13:49 Baso # (Auto) 0.1 10^3/uL (0.0-0.1) 03/23/24 13:49 Nucleated RBC % (auto) 0 % 03/23/24 13:49 Nucleated RBCs # 0.0 /100WBC 03/23/24 13:49 Sodium 136 mmol/L (136-145) 03/23/24 13:49 Potassium 4.2 mmol/L (3.5-5.1) 03/23/24 13:49 Chloride 101 mmol/L (98-107) 03/23/24 13:49 Carbon Dioxide 20 mmol/L (22-29) L 03/23/24 13:49 Anion Gap 19.2 (5-19) H 03/23/24 13:49 BUN 13 mg/dL (6-20) 03/23/24 13:49 Creatinine 0.7 mg/dL (0.7-1.2) 03/23/24 13:49 GFR Calculation 118.4 mL/min (90-130) 03/23/24 13:49 Glucose 264 mg/dL (65-115) H 03/23/24 13:49 Calculated Osmolality 291 mOsm/kg (285-295) 03/23/24 13:49 Calcium 9.0 mg/dL (8.5-10.5) 03/23/24 13:49 Total Bilirubin 0.3 mg/dL (0.15-1.2) 03/23/24 13:49 AST 17 U/L (0-40) 03/23/24 13:49 ALT 23 U/L (0-41) 03/23/24 13:49 Alkaline Phosphatase 85 U/L (40-130) 03/23/24 13:49 Total Protein 7.1 g/dL (6.6-8.7) 03/23/24 13:49 Albumin 4.5 g/dL (3.5-5.2) 03/23/24 13:49 Globulin 2.6 g/dL (1.3-4.6) 03/23/24 13:49 Urine Color Yellow (Yellow) 03/23/24 14:49 Urine Appearance Clear (CLEAR) 03/23/24 14:49 Urine pH 5.5 (5-7) 03/23/24 14:49 Ur Specific [place] 1.027 (1.005-1.030) 03/23/24 14:49 Urine Protein 1+ (Negative) A 03/23/24 14:49 Urine Glucose (UA) 2+ (Normal) H 03/23/24 14:49 Urine Ketones Trace (Negative) 03/23/24 14:49 Urine Blood Negative (Negative) 03/23/24 14:49 Urine Nitrate Negative (Negative) 03/23/24 14:49 Urine Bilirubin Negative (Negative) 03/23/24 14:49 Urine Urobilinogen 1.0 mg/dL (Negative) 03/23/24 14:49 Ur Leukocyte Esterase Negative (Negative) 03/23/24 14:49 Urine RBC 0-2 /hpf (0-2) 03/23/24 14:49 Urine WBC 0-5 /hpf (0-5) 03/23/24 14:49 Ur Squamous Epith Cells 0-5 /hpf (0-5) 03/23/24 14:49 Amorphous Sediment Not Reportable 03/23/24 14:49 Urine Bacteria None seen /hpf (NONE) 03/23/24 14:49 Hyaline Casts 1.65 /lpf 03/23/24 14:49 No radiology studies performed this visit Discharge Plan Discharge Patient Disposition: Home Clinical Impression: Diverticulitis Condition: Stable Prescriptions: New ciprofloxacin HCl 500 mg tablet 500 mg PO BID Qty: 14 0RF metronidazole 500 mg tablet 500 mg PO BID 7 Days Qty: 14 0RF No Action Lantus U-100 Insulin 3 - 5 units INJECTION QAM Discharge Orders: Discharge ED (Routine); Ordered 03/23/24 Ordered By: Viet Izaguirre Referrals: Nba Rascon MD [Primary Care Provider] - Discharge Diet: Soft Mechanical Discharge Activity: Increase activity as tolerated Patient Instructions: Opioid Safety, Pain Management Activity Restrictions/Additional Instructions: Thank you for choosing [facility] for your healthcare needs today. It is very important that you follow up as instructed or that you return to the Emergency Department should you have concerns or if your condition changes or worsens in any way. You were seen in the emergency room with complaints of left lower quadrant abdominal pain and rectal discomfort. Rectal exam was unremarkable your laboratory tests are normal your hemoglobin is stable clinically based on your exam and the history given and suspect you have diverticulitis will treat with oral antibiotics 1 pill twice a day for 7 days. Follow-up as needed Coding Level of Care Code ED Property Insurance Claims Examiner for Janis Barakat
[2024-03-23 14:01] LABS: Basophils # 0.1 10^3/uL (0.0-0.1); Basophils % 0.8 %; Eosinophils # 0.1 10^3/uL (0.0-0.8); Eosinophils % 1.1 %; Lymphocytes # 4.3 10^3/uL (0.8-4.8); Lymphocytes % 46.5 %; Mean Corpuscular HGB Conc 34.1 g/dL (30-55); Mean Corpuscular Hemoglobin 30.6 pg (27-33); Mean Corpuscular Volume 89.8 fl (82-101); Mean Platelet Volume 9.6 fL (7.4-10.4); Monocytes # 0.8 10^3/uL (0.2-0.9); Monocytes % 8.1 %; Neutrophils # 4.02 10^3/uL (1.8-7.7); Neutrophils % 43.2 %; Nucleated Red Blood Cells % 0 %; Platelet Count 378 10^3/cmm (157-399); Red Cell Distribution Width 12.5 % (12.1-15.1); White Blood Count 9.29 10^3/uL (3.29-11.43)
[2024-03-23 14:14] VITALS: BP 121/81; PULSE 75; O2SAT 95
[2024-03-23 14:24] LABS: Alanine Aminotransferase 23 U/L (0-41); Albumin Level 4.5 g/dL (3.5-5.2); Alkaline Phosphatase 85 U/L (40-130); Anion Gap 19.2 (5-19); Aspartate Amino Transferase 17 U/L (0-40); Blood Urea Nitrogen 13 mg/dL (6-20); Carbon Dioxide 20 mmol/L (22-29); Chloride 101 mmol/L (98-107); Creatinine Clr Calc Pharmacy 144.5197; Globulin 2.6 g/dL (1.3-4.6); Glomerular Filtration Rate 118.4 mL/min (90-130); Glucose 264 mg/dL (65-115); Osmolality Calculated 291 mOsm/kg (285-295); Potassium 4.2 mmol/L (3.5-5.1); Sodium 136 mmol/L (136-145); Total Bilirubin 0.3 mg/dL (0.15-1.2); Total Protein 7.1 g/dL (6.6-8.7)
--- NOTE | 2024-03-23 14:27 | PC.PHAR ---
patient [facility], called every pharmacy listed they have no records of anything. The [facility] office confirmed he gets lantus but she could NOT step away to get to the pharmacy area to get the actual dosage for me she thinks its 3-5 units but is unsure. I will try to call back later to get a positive match
[2024-03-23 14:57] LABS: Bilirubin Urine Negative (Negative); Blood Urine Negative (Negative); Glucose Urine UA 2+ (Normal); Ketones Urine Trace (Negative); Leukocyte Esterase Urine Negative (Negative); Nitrate Urine Negative (Negative); Protein Urine 1+ (Negative); Specific Gravity, Urine 1.027 (1.005-1.030); Urine Appearance Clear (CLEAR); Urine Color Yellow (Yellow); pH Urine 5.5 (5-7)
[2024-03-23 14:59] LABS: Add Urine Microscopic? YES; Bacteria Urine None Seen /hpf; Hyaline Casts Urine 1.65 /lpf; RBC Urine 0-2 /hpf (0-2); Squamous Epithelial Cell Urine 0-5 /hpf (0-5); WBC Urine 0-5 /hpf (0-5)
[2024-03-23 15:47] VITALS: BP 120/66; PULSE 80; O2SAT 96
== END 2024-03-23 15:48 | disposition home or self-care (01) ==
PROVIDERS: Emergency Provider Family Medicine; PCP Family Medicine Adult Medicine
DX: K57.92 Diverticulitis of intestine, part unspecified, without perforation or abscess without bleeding (principal)
CPT/HCPCS: 80053; 81001; 85025; 99283

== ENCOUNTER → 2024-03-30 13:44 | Outpatient (BNVA) | payer MEDICAID, SELFPAY | PROVIDERS: PCP Family Medicine Adult Medicine | DX: E11.69 Type 2 diabetes mellitus with other specified complication (principal); E66.9 Obesity, unspecified | CPT/HCPCS: 80053; 83036 ==

== ENCOUNTER 2024-05-22 21:57 | Emergency (ER) | payer BC, MEDICAID, SELFPAY ==
[2024-05-22 22:09] VITALS: BP 139/74; PULSE 76; RESP 18; TEMP 36.4; O2SAT 97; BMI 34.9
--- NOTE | 2024-05-22 22:15 | W.ED.EAR ---
HPI - Ear Problem General: Chief complaint: Ear Stated complaint: EAR PAIN Time Seen by Provider: 05/22/24 22:01 History of Present Illness: This is a 54-year-old male that presents to the emergency department with complaints of bilateral ear pain. Onset of symptoms in the last 24 hours. Patient denies any ear trauma. Associated symptoms: Reports ear or mastoid pain; Denies fever(s), headache(s) or neck pain Related Data Previous Rx's Medication Instructions Recorded glimepiride 2 mg tablet 2 mg PO DAILY #30 tabs 03/31/24 lisinopril 5 mg tablet 5 mg PO DAILY #30 tabs 05/02/24 metformin 500 mg tablet,extended 500 mg PO BID #60 tabs 05/02/24 release 24 hr hydrocortisone 1 % topical cream 1 applic topical TID PRN skin 05/16/24 (Preparation H Hydrocortisone) irritation #28.35 grams ciprofloxacin 0.3 %-dexamethasone 4 drp otic (ear) BID 7 days #7.5 mL 05/22/24 0.1 % ear drops,suspension Allergies Allergy/AdvReac Type Severity Reaction Status Date / Time ketamine Allergy Severe ADR-Agitate Verified 03/30/24 13:18 d Penicillins Allergy Severe Unknown Verified 03/30/24 13:18 Review of Systems General: Reports: 10 or more systems reviewed and unremarkable except in HPI and below Const: Denies: fever(s), chills or change in weight ENMT: Reports: ear or mastoid pain and change in hearing; Denies: enlarged tonsils, odynophagia, hoarseness, ear discharge, nasal discharge or nasal congestion Card: Denies: chest pain, palpitations, irregular heart rhythm, edema, swelling of feet/ankles or dyspnea on exertion Resp: Denies: dyspnea or wheezing GI: Denies: abdominal pain, nausea, vomiting, heartburn, diarrhea, constipation or bloating : Denies: flank pain, dysuria, urinary frequency, urinary urgency or urinary hesitancy Musc: Denies: neck pain, back pain, extremity pain or extremity swelling Skin/Breast: Denies: rash, pruritus, erythema, sores or new lesions Neuro: Denies: headache(s), numbness in extremities, weakness in extremities, lack of coordination or difficulty walking Psych: Denies: anxiety, depression, visual hallucinations, auditory hallucinations, suicidal ideation or homicidal ideation PFSH ED PFS: Medical History (Updated 05/22/24 @ 22:16 by ROSE Stone) Encounter to establish care Diabetes mellitus type 2 in obese Endocarditis and heart valve disorders in diseases classified elsewhere [facility] & splenic abscess 08/28/3022 -10/13/2022 Splenic abscess [facility] & endocartitis 08/28/3022 -10/13/2022 Polysubstance abuse drug overdose of Heroin, methamphetamine, alcohol, cannabis with suicidal/homicidal ideation and psychosis Aortic valve endocarditis 08/27/2022 Suicide attempt Psychosis Respiratory failure Anxiety and depression GERD (gastroesophageal reflux disease) Homicidal ideation Essential hypertension Septic arthritis due to Streptococcus species History of bacterial endocarditis Hepatitis C CAD (coronary artery disease) Bowel obstruction Surgical History 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 History of aortic valve replacement with bioprosthetic valve 09/02/2022 & 10/08/2022 surgery for aortic valve endocarditis, [facility] History of mitral valve replacement with bioprosthetic valve Family History Other Diabetes No significant family history Social History Smoking and tobacco/nicotine status: never used tobacco/nicotine Alcohol intake: current Alcohol intake frequency: holidays/special occasions only Substance/Drug Use: current Substance/Drug use frequency: few times a week Housing: Other Details: Homeless Current occupational status: unemployed Physical Exam Const: COMMON NORMALS: no acute distress, patient oriented x3 and alert GENERAL APPEARANCE: cooperative ORIENTATION/CONSCIOUSNESS: Yes awake, Yes oriented to person, Yes oriented to place and Yes oriented to time HENMT: COMMON NORMALS: normocephalic, atraumatic and external ears normal HEAD & SCALP: normocephalic and atraumatic FACE & SINUS: normal facial exam EXTERNAL EAR: Yes external ears normal, Yes mastoids normal and Yes no periauricular adenopathy EXTERNAL AUDITORY CANAL: Abnormal EAC present EAC laterality: right Details: edema and otic discharge and left Details: cerumen impaction MOUTH: Normal oral and palatal mucosa present THROAT: posterior oropharynx normal Eye: COMMON NORMALS: Equal, round and reactive pupils present, EOMs intact bilaterally, conjunctivae normal and no scleral icterus GENERAL EYE: appearance normal, both eyes and all related structures ALIGNMENT: Yes alignment normal PERIORBITAL: periorbital findings normal CONJUNCTIVA: Yes conjunctivae normal PUPIL: Yes Equal, round and reactive pupils present Neck/C-Spine: COMMON NORMALS: full ROM GENERAL: Yes normal visual inspection Lymph: LYMPHATIC: no lymphadenopathy noted Chest: COMMONS NORMALS: normal inspection of the chest Breast/axilla inspection: Yes no chest deformity, asymmetry, normal contours, no nodules, masses, tenderness Resp: COMMON NORMALS: normal respiratory effort, No retractions and No use of accessory muscles EFFORT & INSPECTION: Yes able to speak in complete sentences and Yes symmetric chest movement Cardio: COMMON NORMALS: regular rate RATE: regular rate Neuro: COMMON NORMALS: patient oriented x3 SENSORIUM/ORIENTATION: Yes alert, Yes oriented to person, Yes oriented to place and Yes oriented to time CRANIAL NERVES: Yes CN normal except as noted Psych: COMMON NORMALS: mental status grossly normal, Normal thought process present, cooperative, activity/motor behavior normal, denies homicidal ideation and denies suicidal ideation THOUGHT PROCESS: Normal thought process present Skin: COMMON NORMALS: no rashes or lesions noted, no wounds and turgor normal GENERAL SKIN EXAM: no rashes or lesions noted and turgor normal Course Vital Signs: Vital signs: Vital Signs Temperature 97.5 F L 05/22/24 22:09 Pulse Rate 76 05/22/24 22:09 Respiratory Rate 18 05/22/24 22:09 Blood Pressure 139/74 05/22/24 22:09 Pulse Oximetry 97 05/22/24 22:09 MDM - Ear Medical Decision Making Patient evaluated in the emergency department today for bilateral ear pain. He had a large cerumen impaction to the left ear and the right is edematous, erythematous and moist. His TM is intact We were able to irrigate the left ear and remove the impaction. I believe patient has otitis externa. He states he has been trying to keep his ears dry but has not been successful and has had worsening symptoms. I treated him here in the emergency department with Ciprodex and will be discharging him home/[facility] with Ciprodex. No radiology studies performed this visit Discharge Plan Discharge Patient Disposition: Home Clinical Impression: Otitis externa, Cerumen impaction Condition: Stable Prescriptions: New ciprofloxacin-dexamethasone 0.3-0.1 % drops,suspension 4 drp otic (ear) BID 7 Days Qty: 7.5 0RF No Action glimepiride 2 mg tablet 2 mg PO DAILY Qty: 30 2RF metformin 500 mg tablet extended release 24 hr 500 mg PO BID Qty: 60 0RF lisinopril 5 mg tablet 5 mg PO DAILY Qty: 30 0RF hydrocortisone [Preparation H Hydrocortisone] 1 % cream 1 applic topical TID PRN (Reason: skin irritation) Qty: 28.35 0RF Discharge Orders: Discharge ED (Routine); Ordered 05/22/24 Ordered By: Sarina Cobb Referrals: Nba Rascon MD [Primary Care Provider] - Discharge Diet: Advance as tolerated Discharge Activity: Resume usual activity Patient Instructions: Otitis Externa - Adult, Opioid Safety, Pain Management Activity Restrictions/Additional Instructions: Keep your ears dry. Drops need to be added to the ear twice a day. Please use the eardrops as prescribed. Please return to the emergency department as needed for new, concerning, worsening symptoms Coding Level of Care Code ED [employer]at
[2024-05-22] MEDS: ciprofloxacin-dexameth Otic Susp 7.5 mL Btl 4 DROP EAR-BOTH (22:31)
--- NOTE | 2024-05-22 23:00 | PC.NURSE ---
Pt left ear irrigated a second time. Large ball of earwax noted to come out. Provider notified to re-evaluate.
== END 2024-05-23 00:20 | disposition home or self-care (01) ==
PROVIDERS: Emergency Provider Nurse Practitioner; PCP Family Medicine Adult Medicine
DX: H61.22 Impacted cerumen, left ear (principal); H60.93 Unspecified otitis externa, bilateral; Z79.84 Long term (current) use of oral hypoglycemic drugs; I25.10 Atherosclerotic heart disease of native coronary artery without angina pectoris; I10 Essential (primary) hypertension; E11.9 Type 2 diabetes mellitus without complications; Z95.0 Presence of cardiac pacemaker
CPT/HCPCS: 99283